=== PATIENT | female | born 1940 | race Caucasian/White ===

== ENCOUNTER 2019-02-19 14:14 | Outpatient (RCR) | payer MEDICARE, OTHER, SELFPAY ==
[2019-02-19 14:34] VITALS: BP 146/72; PULSE 57; RESP 16; TEMP 35.9; BMI 22.7
--- NOTE | 2019-02-19 15:47 | PCM.WC.HP ---
(1) Traumatic open wound of left lower leg Status: Chronic Current Visit: Yes Qualifiers: Encounter type: initial encounter Qualified Code(s): S81.802A - Unspecified open wound, left lower leg, initial encounter Code(s): S81.802A - Unspecified open wound, left lower leg, initial encounter (2) History of pulmonary embolism Status: Chronic Current Visit: No Code(s): Z86.711 - Personal history of pulmonary embolism (3) On continuous oral anticoagulation Status: Chronic Current Visit: Yes Code(s): Z79.01 - 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 (4) History of tobacco use Status: Chronic Current Visit: Yes Code(s): Z87.891 - Personal history of nicotine dependence (5) Peripheral artery disease Status: Chronic Current Visit: Yes Code(s): I73.9 - Peripheral vascular disease, unspecified (6) Intermittent claudication of both lower extremities due to atherosclerosis Status: Chronic Current Visit: Yes Code(s): I70.213 - Atherosclerosis of [place] arteries of extremities with intermittent claudication, bilateral legs (7) COPD (chronic obstructive pulmonary disease) Status: Chronic Current Visit: Yes Code(s): J44.9 - Chronic obstructive pulmonary disease, unspecified (8) History of goiter Status: Chronic Current Visit: No Code(s): Z86.39 - Personal history of other endocrine, nutritional and metabolic disease (9) CHF (congestive heart failure) Status: Chronic Current Visit: No Code(s): I50.9 - Heart failure, unspecified (10) Hypertension Status: Chronic Current Visit: No Code(s): I10 - Essential (primary) hypertension (11) Leg swelling Status: Chronic Current Visit: Yes Code(s): M79.89 - Other specified soft tissue disorders (12) Hypothyroidism Status: Chronic Current Visit: No Code(s): E03.9 - Hypothyroidism, unspecified (13) Chronic renal insufficiency, stage III (moderate) Status: Chronic Current Visit: No Code(s): N18.3 - Chronic kidney disease, stage 3 (moderate) (14) Degenerative arthritis of hip Status: Chronic Current Visit: No Code(s): M16.9 - Osteoarthritis of hip, unspecified History of Present Illness Date of Service: 02/19/19 Chief Complaint: Chronic, nonhealing, traumatic wound of the left anterior tibial surface History of Wound: This is a 78-year-old female who presents for evaluation and management relative to a chronic, nonhealing, traumatic wound of the left anterior tibial surface. The wound has been present for approximately 2 years. It occurred as a result of banging her left emery against wooden steps. The traumatic event occurred approximately 2 years ago. The wound has failed to heal. She is currently using a steroid ointment topically. Her primary care physician, Dr. Patton, as recently prescribed a 5-day course of oral antibiotics, which have been completed. The patient, and her daughter at the bedside, cannot recall the name of the antibiotic. The patient has been recently evaluated by her primary care physician, and laboratory studies have been obtained. Results are as follows: On February 01, 2019, white blood count was 7.70, hemoglobin 11.8, hematocrit 35.3, platelets 226,000. On January 09, 2019, the following labs were recorded: Glucose 80, sodium 140, potassium 4.2, chloride 103, BUN 28, creatinine 1.07, calcium 7.8. A noninvasive lower extremity arterial study was recently performed at [facility], results of which are not currently available, but will be requested. However, it is presumed that the results indicated the presence of significant arterial occlusive disease, as the patient has been referred for evaluation by a vascular surgeon. The patient relates swelling in her lower extremities. She sleeps in a recliner at night. Her past medical records indicate the presence of intermittent claudication, and the patient is limited in ambulation for reasons she describes as being related to degenerative arthritis of the hip. The patient is a , and lives with her daughter, who accompanies her to her visit today. Patient was a heavy smoker until November,, at which time she was hospitalized with exacerbation of COPD. At that time, she was diagnosed with a pulmonary embolism, and has been on systemic anticoagulation since that time with Xarelto, and told that this would continue for at least 1 year. Past Medical History Past Medical History: Chronic Problems Traumatic open wound of left lower leg (Chronic) History of pulmonary embolism (Chronic) On continuous oral anticoagulation (Chronic) History of tobacco use (Chronic) Peripheral artery disease (Chronic) Intermittent claudication of both lower extremities due to atherosclerosis (Chronic) COPD (chronic obstructive pulmonary disease) (Chronic) History of goiter (Chronic) CHF (congestive heart failure) (Chronic) Hypertension (Chronic) Leg swelling (Chronic) Hypothyroidism (Chronic) Chronic renal insufficiency, stage III (moderate) (Chronic) Degenerative arthritis of hip (Chronic) Past Medical History: Patient has a history of congestive heart failure, hypertension, pulmonary embolism, chronic obstructive pulmonary disease, stage III renal insufficiency, hypothyroidism, intermittent claudication, lower extremity swelling and edema, goiter, and tobacco abuse. The patient's history is negative for myocardial infarction, cerebrovascular accident, and diabetes mellitus. Since smoking cessation in November 2018, the patient has been using a patch. Surgical History: - - Patient has a history of thyroidectomy for goiter. The patient is a G5, P5, Ab0 Home Medications: Ambulatory Orders Medication Instructions Recorded Acetaminophen 500 mg PO Q4H PRN PRN 02/19/19 Acetaminophen with Codeine 1 ea PO BID 02/19/19 [Acetaminophen-Cod #2 Tablet] Albuterol Inhaler [Ventolin Hfa 2 puff INHALATION Q6H PRN PRN 02/19/19 (SP)] Carvedilol 25 mg PO BID 02/19/19 Cholecalciferol (VIT D3) 400 02/19/19 Fluticasone Furoate [Arnuity 02/19/19 Ellipta] Gabapentin [Neurontin] 400 mg PO 02/19/19 Levothyroxine [Synthroid] 112 mcg PO DAILY 02/19/19 Loratadine 10 mg PO 02/19/19 Mirabegron [Myrbetriq] 25 mg PO 02/19/19 Nicotine [Nicotine Patch] 1 ea TD 02/19/19 Omeprazole [Prilosec] 20 mg PO DAILY 02/19/19 Oxycodone HCl/Acetaminophen PO Q6H PRN PRN 02/19/19 [Percocet 5-325] Pravastatin [Pravachol] 20 mg PO QHS 02/19/19 Rivaroxaban [Xarelto] 20 mg PO DAILY 02/19/19 Ropinirole HCl 0.5 mg PO 02/19/19 - Family History Paternal - - The patient's father in his 70s with a history of COPD and skin cancer. The patient's mother in her 70s with a history of stomach cancer. Lives: With Family - Patient lives with her daughter, - Smoking Status: Former smoker - The patient quit smoking approximately 3 months ago, and using cessation patches since. Tobacco Use: Cigarettes Alcohol: None Drugs: None Review of Systems Constitutional: Denies: Chills, Fever, Weight Change Eyes: Denies: Pain, Vision Change HEENT: Denies: Difficulty Hearing, Difficulty Swallowing, Sinus Congestion Cardiovascular: Denies: Chest Pain, Palpitations Respiratory: Denies: Cough, Shortness of Breath Gastrointestinal: Denies: Diarrhea, Nausea, Vomiting Genitourinary: Denies: Dysuria, Hematuria Endocrine: Denies: Heat/ Cold Intolerance, Polydipsia, Polyuria Hematologic/ Lymphatic: Denies: Easy Bruising, Easy Bleeding - Physical Exam Vital Signs Temp Pulse Resp BP 96.6 F L 57 L 16 146/72 H 02/19/19 14:34 02/19/19 14:34 02/19/19 14:34 02/19/19 14:34 General: Alert, Oriented x3, Cooperative, No apparent distress, Well developed, Well nourished, - - Patient appears to be of relatively normal body weight. She is alert, conversant, and appropriate. HEENT: Atraumatic, PERRLA, EOMI, Normocephalic Oral: Moist Mucosa Neck: Supple, No JVD, Negative Carotid Bruits, Negative Hepatojugular Reflux, No Nodes, No Nuchal Rigidity, Trachea Midline Lungs: Clear to auscultation, Normal air movement, No rhonchi, No wheeze, No rales Cardiovascular: Regular rate, Regular Rhythm, Normal S1, Normal S2, No murmurs Abdomen: Soft, Non Tender, Non-Distended Extremities: No clubbing, No cyanosis, No edema, No Calf Tenderness, - - Scattered varicosities are noted in the lower extremities bilaterally. There is no significant swelling or edema. An open wound is noted on the left anterior tibial surface. Dimensions are documented elsewhere. There is a moderate amount of bioburden and nonviable tissue. There is no sign of infection or cellulitis. Skin: No rashes Wound Measurements and Assessment WC - Nurse 1 - General Ulcer Measurement Start: 02/19/19 14:34 Freq: Status: Active Protocol: Activity Type Activity Date Activity User E-Sign Co-Sign Detail Recorded Client Recorded Date Recorded By Document 02/19/19 14:34 BS [id number] 02/19/19 14:53 BS 12/30/19 14:34 Wound Center Nurse 1 [Ulcer Assessment] #1 LLE -Combined with other wound No -Current Size (cm) - Length 0.1 -Current Size (cm) - Width 0.1 -Current Size (cm) - Depth 0.1 -Total Square Cm 0.01 -Date of Last Picture (Recall this 02/19/19 field) -Photo Taken Yes -Wound Margin Flat & Intact -Texture (Johnna-wound Skin Appearance) No Abnormality, Assessed -Moisture (Johnna-wound Skin Appearance Assessed,Dry/ ) Scaly -Temperature (Johnna-wound Skin No Abnormality Appearance) (Pt Warm) -Tenderness on Palpation (Johnna-wound No Skin Appearance) -Ulcer Cleansing Rinsed/ Irrigated with Saline -Foul Odor after Cleansing No [Edema Assessment] -Point of measurement (cm from the 32.0 medial instep) -Point of Measurement (cm from the 21.5 medial instep) -Point of measurement (cm from the 31.0 medial instep) -Point of Measurement (cm from the 20.0 medial instep) WC - Nurse 2 - General Ulcer CM Notes Start: 02/19/19 14:34 Freq: Status: Active Protocol: Activity Type Activity Date Activity User E-Sign Co-Sign Detail Recorded Client Recorded Date Recorded By Document 02/19/19 15:07 MW [id number] 02/19/19 15:19 MW 02/19/19 15:07 Wound Center Nurse 2 [Procedure/Treatment] #1 LLE -Time 15:07 -Correct Patient Yes -Correct Side, Site, Position Yes -Correct Procedure Yes -Procedure Performed Yes -Type of Procedure Debridement -Clinical Debridement Subcutaneous -Post Debridement Size (cm) - Length 0.6 -Post Debridement Size (cm) - Width 0.9 -Post Debridement Size (cm) - Depth 0.1 -Total Square Cm 0.54 -Wound/Ulcer Outcome Not Healed -Ulcer Cleansing Rinsed/ Irrigated with Saline -Foul Odor after Cleansing No -Bioengineered Tissue No -Bleeding Controlled with Pressure -Offloading No -Treatment Response Procedure Tolerated Well [See Physician Procedure note for Specifics] Pain Scale: 0-10 Numeric [Pain] -Is Patient Pain Free? Yes Neurological: Cranial nerves II-XII grossly intact, Neuro grossly intact Psych/Mental Status: Normal Affect, Appropriate, Alert and oriented to time, place, person, mood and affect Debridement Note Post-Debridement Measurements/Treatment WC - Nurse 2 - General Ulcer CM Notes Start: 02/19/19 14:34 Freq: Status: Active Protocol: Activity Type Activity Date Activity User E-Sign Co-Sign Detail Recorded Client Recorded Date Recorded By Document 02/19/19 15:07 MW [id number] 02/19/19 15:19 MW 02/19/19 15:07 Wound Center Nurse 2 #1 LLE -Time 15:07 -Correct Patient Yes -Correct Side, Site, Position Yes -Correct Procedure Yes -Procedure Performed Yes -Type of Procedure Debridement -Clinical Debridement Subcutaneous -Post Debridement Size (cm) - Length 0.6 -Post Debridement Size (cm) - Width 0.9 -Post Debridement Size (cm) - Depth 0.1 -Total Square Cm 0.54 -Wound/Ulcer Outcome Not Healed -Ulcer Cleansing Rinsed/ Irrigated with Saline -Foul Odor after Cleansing No -Bioengineered Tissue No -Bleeding Controlled with Pressure -Offloading No -Treatment Response Procedure Tolerated Well Pain Scale: 0-10 Numeric Is Patient Pain Free? Yes Laterality: Left - Anterior tibial surface Type of Debridement: Excisional debridement Anesthesia Used: 5% Lidocaine Gel Depth: Down to and including healthy tissue, in the subcutaneous layer Percentage of wound debrided: 100 Instrument Used: 5mm curette Tissue Removed: Bioburden and nonviable tissue Severity: Fat Layer Exposed Amount of bleeding with debridement: Mild Bleeding Controlled with: Compression and gauze Patient tolerated procedure well Assessment/Plan Active Problems Traumatic open wound of left lower leg (Chronic) On continuous oral anticoagulation (Chronic) History of tobacco use (Chronic) Peripheral artery disease (Chronic) Intermittent claudication of both lower extremities due to atherosclerosis (Chronic) COPD (chronic obstructive pulmonary disease) (Chronic) Leg swelling (Chronic) Assessment: This is a 78-year-old female who presents with an open wound on the left anterior tibial surface, which has been present for approximately 2 years. By history, the patient has multiple medical problems, which have been listed above. Based upon history, and past medical records, it appears as though the patient suffers from intermittent claudication secondary to peripheral arterial occlusive disease. She has recently undergone a noninvasive lower extremity arterial study at [facility]. We are to request copies of these results. It is understood that the patient has been referred for consultation with a vascular surgeon. This implies that there is evidence of arterial occlusive disease. It is noted that the patient has pre-existing comorbid medical conditions, with a recent history of pulmonary embolism for which she is on systemic anticoagulation therapy with Xarelto. Patient has had some recent laboratory studies, but others will be obtained prior to her next visit in 1 week. We are to obtain a comprehensive metabolic profile and a serum prealbumin. Plan: We are to request copies of the patient's recent noninvasive lower extremity arterial study. Additional laboratory blood work will be obtained. Patient has been encouraged to optimize her nutritional intake. She has been encouraged to elevate her lower extremities as much as possible, and to refrain from sleeping in a recliner at night. Activity has been encouraged. She is to continue in her efforts to cease smoking. We are to implement the use of Analilia topically to the patient's open left lower extremity wound. The patient, and her daughter at the bedside, have been instructed in the appropriate means of applying the Analilia. Patient is to return in 1 week for reevaluation. Patient is not currently a smoker, and has been counseled to continue her efforts to stop smoking. Influenza vaccine was not administered today. Patient stands 5 feet 5 inches tall. She weighs 137 pounds. Her BMI is 22.8, which is normal.
[2019-02-19 18:12] LABS: ALB/GLOB Ratio 0.9 RATIO (0.9-2.4); AST(SGOT) 16 U/L (15-37); Alanine Aminotransfer ALT/SGPT 21 U/L (13-56); Albumin, Serum 3.6 g/dL (3.2-5.0); Alkaline Phosphatase 94 U/L (45-117); Anion Gap 4 (5-15); BUN 12 mg/dL (7-18); BUN/Creat Ratio 12.4 RATIO (10-20); Chloride 106 mmol/L (98-107); Creatinine, Serum 0.97 mg/dL (0.55-1.02); EST Glomerular Filtration Rate 59 mL/min (>60); Est Glom Filt Rate - Afr Amer 72 mL/min (>60); Globulin 3.8 g/dL (2.2-4.2); Glucose 94 mg/dL (74-106); Potassium 3.7 mmol/L (3.5-5.1); Prealbumin 25.2 mg/dL (20.0-40.0); Protein, Total 7.4 g/dL (6.4-8.2); Sodium Level 140 mmol/L (136-145)
== END 2019-02-20 23:59 ==
LOC: WC 14:14
PROVIDERS: Family Provider Student in an Organized Health Care Education/Training Program; PCP Student in an Organized Health Care Education/Training Program; Visit Provider Surgery
DX: I70.213 Atherosclerosis of native arteries of extremities with intermittent claudication, bilateral legs (principal); S89.8 Other specified injuries of lower leg; W22.09XS Striking against other stationary object, sequela; I50.9 Heart failure, unspecified; I13.0 Hypertensive heart and chronic kidney disease with heart failure and stage 1 through stage 4 chronic kidney disease, or unspecified chronic kidney disease; Z86.711 Personal history of pulmonary embolism; Z87.891 Personal history of nicotine dependence; J44.9 Chronic obstructive pulmonary disease, unspecified; M16.10 Unilateral primary osteoarthritis, unspecified hip; E03.9 Hypothyroidism, unspecified; N18.3 Chronic kidney disease, stage 3 (moderate); T79.8XXA Other early complications of trauma, initial encounter; W22.09XA Striking against other stationary object, initial encounter
CPT/HCPCS: 11042; 80053; 84134; 99203; G0463

== ENCOUNTER 2019-03-20 10:30 | Outpatient (RCR) | payer MEDICARE, OTHER, SELFPAY ==
[2019-02-21 01:10] VITALS: BP 146/72; PULSE 57; RESP 16; TEMP 35.9
[2019-02-27 10:09] VITALS: BP 128/59; PULSE 56; RESP 18; TEMP 36.9; BMI 22.7
--- NOTE | 2019-02-27 10:53 | PCM.WC.HP ---
(1) Traumatic open wound of left lower leg Status: Chronic Current Visit: Yes Qualifiers: Encounter type: subsequent encounter Qualified Code(s): S81.802D - Unspecified open wound, left lower leg, subsequent encounter Code(s): S81.802A - Unspecified open wound, left lower leg, initial encounter (2) History of pulmonary embolism Status: Chronic Current Visit: No Code(s): Z86.711 - Personal history of pulmonary embolism (3) On continuous oral anticoagulation Status: Chronic Current Visit: No Code(s): Z79.01 - intermediate frame tender (current) use of anticoagulants (4) History of tobacco use Status: Chronic Current Visit: Yes Code(s): Z87.891 - Personal history of nicotine dependence (5) Peripheral artery disease Status: Chronic Current Visit: Yes Code(s): I73.9 - Peripheral vascular disease, unspecified (6) Intermittent claudication of both lower extremities due to atherosclerosis Status: Chronic Current Visit: Yes Code(s): I70.213 - Atherosclerosis of [place] arteries of extremities with intermittent claudication, bilateral legs (7) COPD (chronic obstructive pulmonary disease) Status: Chronic Current Visit: No Code(s): J44.9 - Chronic obstructive pulmonary disease, unspecified (8) History of goiter Status: Chronic Current Visit: No Code(s): Z86.39 - Personal history of other endocrine, nutritional and metabolic disease (9) CHF (congestive heart failure) Status: Chronic Current Visit: No Code(s): I50.9 - Heart failure, unspecified (10) Hypertension Status: Chronic Current Visit: No Code(s): I10 - Essential (primary) hypertension (11) Leg swelling Status: Chronic Current Visit: Yes Code(s): M79.89 - Other specified soft tissue disorders (12) Hypothyroidism Status: Chronic Current Visit: No Code(s): E03.9 - Hypothyroidism, unspecified (13) Chronic renal insufficiency, stage III (moderate) Status: Chronic Current Visit: No Code(s): N18.3 - Chronic kidney disease, stage 3 (moderate) (14) Degenerative arthritis of hip Status: Chronic Current Visit: No Code(s): M16.9 - Osteoarthritis of hip, unspecified History of Present Illness Date of Service: 02/27/19 Chief Complaint: Chronic, nonhealing, traumatic wound of the left anterior tibial surface History of Wound: This is a 78-year-old female who presented for evaluation and management relative to a chronic, nonhealing, traumatic wound of the left anterior tibial surface. The wound had been present for approximately 2 years. It occurred as a result of banging her left emery against wooden steps. The traumatic event occurred approximately 2 years ago. The wound has failed to heal. She was using a steroid ointment topically. Her primary care physician, Dr. Patton, had recently prescribed a 5-day course of oral antibiotics. The patient, and her daughter at the bedside, could not recall the name of the antibiotic. The patient had been recently evaluated by her primary care physician, and laboratory studies had been obtained. Results were as follows: On February 01, 2019, white blood count was 7.70, hemoglobin 11.8, hematocrit 35.3, platelets 226,000. On January 09, 2019, the following labs were recorded: Glucose 80, sodium 140, potassium 4.2, chloride 103, BUN 28, creatinine 1.07, calcium 7.8. A noninvasive lower extremity arterial study was recently performed at [facility], results of which were not available, but were requested. However, it is presumed that the results indicated the presence of significant arterial occlusive disease, as the patient has been referred for evaluation by a vascular surgeon. The patient relates swelling in her lower extremities. She sleeps in a recliner at night. Her past medical records indicate the presence of intermittent claudication, and the patient is limited in ambulation for reasons she describes as being related to degenerative arthritis of the hip. The patient is a , and lives with her daughter. Patient was a heavy smoker until November,, at which time she was hospitalized with exacerbation of COPD. At that time, she was diagnosed with a pulmonary embolism, and has been on systemic anticoagulation since that time with Xarelto, and told that this would continue for at least 1 year. Since she has stopped smoking, she has been using a nicotine patch. Past Medical History Past Medical History: Chronic Problems Traumatic open wound of left lower leg (Chronic) History of pulmonary embolism (Chronic) On continuous oral anticoagulation (Chronic) History of tobacco use (Chronic) Peripheral artery disease (Chronic) Intermittent claudication of both lower extremities due to atherosclerosis (Chronic) COPD (chronic obstructive pulmonary disease) (Chronic) History of goiter (Chronic) CHF (congestive heart failure) (Chronic) Hypertension (Chronic) Leg swelling (Chronic) Hypothyroidism (Chronic) Chronic renal insufficiency, stage III (moderate) (Chronic) Degenerative arthritis of hip (Chronic) Surgical History: - - Patient has a history of thyroidectomy for goiter. The patient is a G5, P5, Ab0 Home Medications: Ambulatory Orders Medication Instructions Recorded Acetaminophen 500 mg PO Q4H PRN PRN 02/19/19 Acetaminophen with Codeine 1 ea PO BID 02/19/19 [Acetaminophen-Cod #2 Tablet] Albuterol Inhaler [Ventolin Hfa 2 puff INHALATION Q6H PRN PRN 02/19/19 (SP)] Carvedilol 25 mg PO BID 02/19/19 Cholecalciferol (VIT D3) 400 02/19/19 Fluticasone Furoate [Arnuity 02/19/19 Ellipta] Gabapentin [Neurontin] 400 mg PO 02/19/19 Levothyroxine [Synthroid] 112 mcg PO DAILY 02/19/19 Loratadine 10 mg PO 02/19/19 Mirabegron [Myrbetriq] 25 mg PO 02/19/19 Nicotine [Nicotine Patch] 1 ea TD 02/19/19 Omeprazole [Prilosec] 20 mg PO DAILY 02/19/19 Oxycodone HCl/Acetaminophen PO Q6H PRN PRN 02/19/19 [Percocet 5-325] Pravastatin [Pravachol] 20 mg PO QHS 02/19/19 Rivaroxaban [Xarelto] 20 mg PO DAILY 02/19/19 Ropinirole HCl 0.5 mg PO 02/19/19 Furosemide [Lasix] 40 mg PO DAILY 02/27/19 - Family History Paternal - - The patient's father in his 70s with a history of COPD and skin cancer. The patient's mother in her 70s with a history of stomach cancer. Smoking Status: Former smoker - The patient quit smoking approximately 3 months ago, and using cessation patches since. Tobacco Use: Cigarettes Review of Systems Constitutional: Denies: Chills, Fever, Weight Change Eyes: Denies: Pain, Vision Change HEENT: Denies: Difficulty Hearing, Difficulty Swallowing, Sinus Congestion Cardiovascular: Denies: Chest Pain, Palpitations Respiratory: Denies: Cough, Shortness of Breath Gastrointestinal: Denies: Diarrhea, Nausea, Vomiting Genitourinary: Denies: Dysuria, Hematuria Endocrine: Denies: Heat/ Cold Intolerance, Polydipsia, Polyuria Hematologic/ Lymphatic: Denies: Easy Bruising, Easy Bleeding - Physical Exam Vital Signs Temp Pulse Resp BP 98.5 F 56 L 18 128/59 H 02/27/19 10:09 02/27/19 10:09 02/27/19 10:09 02/27/19 10:09 General: Alert, Oriented x3, Cooperative, No apparent distress, Well developed, Well nourished HEENT: Atraumatic, PERRLA, EOMI, Normocephalic Oral: Moist Mucosa Neck: No JVD Lungs: Normal air movement Abdomen: Non-Distended Extremities: No clubbing, No cyanosis, No edema, No Calf Tenderness, - - The wound on the left anterior tibial surface appears to be improved. Dimensions are documented elsewhere. There is no sign of infection or cellulitis. There is a moderate amount of bioburden. Skin: No rashes Wound Measurements and Assessment WC - Nurse 1 - General Ulcer Measurement Start: 02/27/19 10:08 Freq: Status: Active Protocol: Activity Type Activity Date Activity User E-Sign Co-Sign Detail Recorded Client Recorded Date Recorded By Document 02/27/19 10:09 DL [id number] 02/27/19 10:15 DL 02/27/19 10:09 Wound Center Nurse 1 [Ulcer Assessment] #1 LLE -Current Size (cm) - Length 0.6 -Current Size (cm) - Width 0.8 -Current Size (cm) - Depth 0.1 -Total Square Cm 0.48 -Photo Taken No -Exudate Amt Small -Exudate Type Serosanguineous -Wound Margin Distinct, Outline Attached -Granulation Amt Small (1-33%) -Granulation Quality Red -Necrosis Amt Small (1-33%) -Necrotic Tissue Type Adherent Slough -Structure Exposed N/A -Texture (Johnna-wound Skin Appearance) No Abnormality -Moisture (Johnna-wound Skin Appearance No Abnormality ) -Color (Johnna-wound Skin Appearance) No Abnormality -Temperature (Johnna-wound Skin No Abnormality Appearance) (Pt Warm) -Tenderness on Palpation (Johnna-wound No Skin Appearance) -Ulcer Cleansing Rinsed/ Irrigated with Saline -Foul Odor after Cleansing No -Anesthetic Used 4% Lidocaine Solution [Edema Assessment] -Left Calf (cm) 33.2 -Left Ankle (cm) 18.3 - Nurse 2 - General Ulcer CM Notes Start: 02/27/19 10:08 Freq: Status: Active Protocol: Activity Type Activity Date Activity User E-Sign Co-Sign Detail Recorded Client Recorded Date Recorded By Document 02/27/19 10:48 DV [id number] 02/27/19 10:51 DV 02/27/19 10:48 Wound Center Nurse 2 [Procedure/Treatment] #1 LLE -Time 10:49 -Correct Patient Yes -Correct Side, Site, Position Yes -Correct Procedure Yes -Procedure Performed Yes -Type of Procedure Debridement -Clinical Debridement Subcutaneous -Post Debridement Size (cm) - Length 0.7 -Post Debridement Size (cm) - Width 0.4 -Post Debridement Size (cm) - Depth 0.2 -Total Square Cm 0.28 -Wound/Ulcer Outcome Not Healed -Ulcer Cleansing Rinsed/ Irrigated with Saline -Foul Odor after Cleansing No -Bioengineered Tissue No -Bleeding Controlled with Pressure -Offloading No -Treatment Response Procedure Tolerated Well [See Physician Procedure note for Specifics] Pain Scale: 0-10 Numeric [Pain] -Is Patient Pain Free? Yes Musculoskeletal: Muscle Wasting - Lower extremities Neurological: Cranial nerves II-XII grossly intact, Neuro grossly intact Psych/Mental Status: Normal Affect, Appropriate, Alert and oriented to time, place, person, mood and affect Debridement Note Post-Debridement Measurements/Treatment - Nurse 2 - General Ulcer CM Notes Start: 02/27/19 10:08 Freq: Status: Active Protocol: Activity Type Activity Date Activity User E-Sign Co-Sign Detail Recorded Client Recorded Date Recorded By Document 02/27/19 10:48 DV [id number] 02/27/19 10:51 DV 02/27/19 10:48 Wound Center Nurse 2 #1 LLE -Time 10:49 -Correct Patient Yes -Correct Side, Site, Position Yes -Correct Procedure Yes -Procedure Performed Yes -Type of Procedure Debridement -Clinical Debridement Subcutaneous -Post Debridement Size (cm) - Length 0.7 -Post Debridement Size (cm) - Width 0.4 -Post Debridement Size (cm) - Depth 0.2 -Total Square Cm 0.28 -Wound/Ulcer Outcome Not Healed -Ulcer Cleansing Rinsed/ Irrigated with Saline -Foul Odor after Cleansing No -Bioengineered Tissue No -Bleeding Controlled with Pressure -Offloading No -Treatment Response Procedure Tolerated Well Pain Scale: 0-10 Numeric Is Patient Pain Free? Yes Laterality: Left - Anterior tibial surface Type of Debridement: Excisional debridement Anesthesia Used: 5% Lidocaine Gel Depth: Down to and including healthy tissue, in the subcutaneous layer Percentage of wound debrided: 100 Instrument Used: 5mm curette Tissue Removed: Bioburden and nonviable tissue Severity: Fat Layer Exposed Amount of bleeding with debridement: Mild Bleeding Controlled with: Compression and gauze Patient tolerated procedure well Assessment/Plan Active Problems Traumatic open wound of left lower leg (Chronic) History of tobacco use (Chronic) Peripheral artery disease (Chronic) Intermittent claudication of both lower extremities due to atherosclerosis (Chronic) Leg swelling (Chronic) Assessment: This is a 78-year-old female who presents with an open wound on the left anterior tibial surface, which has been present for approximately 2 years. By history, the patient has multiple medical problems, which have been listed above. Based upon history, and past medical records, it appears as though the patient suffers from intermittent claudication secondary to peripheral arterial occlusive disease. She has recently undergone a noninvasive lower extremity arterial study at [facility]. We have requested copies of these results, but continue to await their receipt. It is understood that the patient has been referred for consultation with a vascular surgeon. This implies that there is evidence of arterial occlusive disease. It is noted that the patient has pre-existing comorbid medical conditions, with a recent history of pulmonary embolism for which she is on systemic anticoagulation therapy with Xarelto. Patient has had some recent laboratory studies, and others have been recently obtained on 02/19/19. Results are as follows: Sodium 140, potassium 3.7, chloride 106, BUN 12, creatinine 0.97, glucose 94, calcium 9.0, AST 16, ALT 21, total protein 7.4, albumin 3.6, serum prealbumin 25.2. Plan: We have requested copies of the patient's recent noninvasive lower extremity arterial study performed at [facility], though not yet received. Nonetheless, she has an appointment with a vascular surgeon on March 14, 2019. Patient has been encouraged to optimize her nutritional intake. She has been encouraged to elevate her lower extremities as much as possible, and to refrain from sleeping in a recliner at night. Activity has been encouraged. She is to continue in her efforts to cease smoking. We are to continue the use of Analilia topically to the patient's open left lower extremity wound. The patient, and her daughter at the bedside, have been instructed in the appropriate means of applying the Analilia. Patient is to return in 1 week for reevaluation. Patient is not currently a smoker, and has been counseled to continue her efforts to stop smoking. Influenza vaccine was not administered today. Patient stands 5 feet 5 inches tall. She weighs 137 pounds. Her BMI is 22.8, which is normal.
[2019-03-06 10:29] VITALS: BP 149/77; PULSE 55; RESP 16; TEMP 36.1; BMI 22.7
--- NOTE | 2019-03-06 11:10 | HP.PCM_ITS ---
(1) Traumatic open wound of left lower leg Status: Chronic Current Visit: Yes Qualifiers: Encounter type: subsequent encounter Qualified Code(s): S81.802D - Unspecified open wound, left lower leg, subsequent encounter Code(s): S81.802A - Unspecified open wound, left lower leg, initial encounter (2) History of pulmonary embolism Status: Chronic Current Visit: No Code(s): Z86.711 - Personal history of pulmonary embolism (3) On continuous oral anticoagulation Status: Chronic Current Visit: No Code(s): Z79.01 - retirement (current) use of anticoagulants (4) History of tobacco use Status: Chronic Current Visit: Yes Code(s): Z87.891 - Personal history of nicotine dependence (5) Peripheral artery disease Status: Chronic Current Visit: Yes Code(s): I73.9 - Peripheral vascular disease, unspecified (6) Intermittent claudication of both lower extremities due to atherosclerosis Status: Chronic Current Visit: Yes Code(s): I70.213 - Atherosclerosis of [place] arteries of extremities with intermittent claudication, bilateral legs (7) COPD (chronic obstructive pulmonary disease) Status: Chronic Current Visit: No Code(s): J44.9 - Chronic obstructive pulmonary disease, unspecified (8) History of goiter Status: Chronic Current Visit: No Code(s): Z86.39 - Personal history of other endocrine, nutritional and metabolic disease (9) CHF (congestive heart failure) Status: Chronic Current Visit: No Code(s): I50.9 - Heart failure, unspecified (10) Hypertension Status: Chronic Current Visit: No Code(s): I10 - Essential (primary) hypertension (11) Leg swelling Status: Chronic Current Visit: Yes Code(s): M79.89 - Other specified soft tissue disorders (12) Hypothyroidism Status: Chronic Current Visit: No Code(s): E03.9 - Hypothyroidism, unspecified (13) Chronic renal insufficiency, stage III (moderate) Status: Chronic Current Visit: No Code(s): N18.3 - Chronic kidney disease, stage 3 (moderate) (14) Degenerative arthritis of hip Status: Chronic Current Visit: No Code(s): M16.9 - Osteoarthritis of hip, unspecified History of Present Illness Date of Service: 03/06/19 Chief Complaint: Chronic, nonhealing, traumatic wound of the left anterior tibial surface History of Wound: This is a 78-year-old female who presented for evaluation and management relative to a chronic, nonhealing, traumatic wound of the left anterior tibial surface. The wound had been present for approximately 2 years. It occurred as a result of banging her left emery against wooden steps. The traumatic event occurred approximately 2 years ago. The wound has failed to heal. She was using a steroid ointment topically. Her primary care physician, Dr. Patton, had recently prescribed a 5-day course of oral antibiotics. The patient, and her daughter at the bedside, could not recall the name of the antibiotic. The patient had been recently evaluated by her primary care physician, and laboratory studies had been obtained. Results were as follows: On February 01, 2019, white blood count was 7.70, hemoglobin 11.8, hematocrit 35.3, platelets 226,000. On January 09, 2019, the following labs were recorded: Glucose 80, sodium 140, potassium 4.2, chloride 103, BUN 28, creatinine 1.07, calcium 7.8. A noninvasive lower extremity arterial study was recently performed at [facility], results of which were not available, but were requested. However, it is presumed that the results indicated the presence of significant arterial occlusive disease, as the patient has been referred for evaluation by a vascular surgeon. The patient relates swelling in her lower extremities. She sleeps in a recliner at night. Her past medical records indicate the presence of intermittent claudication, and the patient is limited in ambulation for reasons she describes as being related to degenerative arthritis of the hip. The patient is a , and lives with her daughter. Patient was a heavy smoker until November,, at which time she was hospitalized with exacerbation of COPD. At that time, she was diagnosed with a pulmonary embolism, and has been on systemic anticoagulation since that time with Xarelto, and told that this would continue for at least 1 year. Since she has stopped smoking, she has been using a nicotine patch. Past Medical History Past Medical History: Chronic Problems Traumatic open wound of left lower leg (Chronic) History of pulmonary embolism (Chronic) On continuous oral anticoagulation (Chronic) History of tobacco use (Chronic) Peripheral artery disease (Chronic) Intermittent claudication of both lower extremities due to atherosclerosis (Chronic) COPD (chronic obstructive pulmonary disease) (Chronic) History of goiter (Chronic) CHF (congestive heart failure) (Chronic) Hypertension (Chronic) Leg swelling (Chronic) Hypothyroidism (Chronic) Chronic renal insufficiency, stage III (moderate) (Chronic) Degenerative arthritis of hip (Chronic) Surgical History: - - Patient has a history of thyroidectomy for goiter. The patient is a G5, P5, Ab0 Home Medications: Ambulatory Orders Medication Instructions Recorded Acetaminophen 500 mg PO Q4H PRN PRN 02/19/19 Acetaminophen with Codeine 1 ea PO BID 02/19/19 [Acetaminophen-Cod #2 Tablet] Albuterol Inhaler [Ventolin Hfa 2 puff INHALATION Q6H PRN PRN 02/19/19 (SP)] Carvedilol 25 mg PO BID 02/19/19 Cholecalciferol (VIT D3) 400 02/19/19 Fluticasone Furoate [Arnuity 02/19/19 Ellipta] Gabapentin [Neurontin] 400 mg PO 02/19/19 Levothyroxine [Synthroid] 112 mcg PO DAILY 02/19/19 Loratadine 10 mg PO 02/19/19 Mirabegron [Myrbetriq] 25 mg PO 02/19/19 Nicotine [Nicotine Patch] 1 ea TD 02/19/19 Omeprazole [Prilosec] 20 mg PO DAILY 02/19/19 Oxycodone HCl/Acetaminophen PO Q6H PRN PRN 02/19/19 [Percocet 5-325] Pravastatin [Pravachol] 20 mg PO QHS 02/19/19 Rivaroxaban [Xarelto] 20 mg PO DAILY 02/19/19 Ropinirole HCl 0.5 mg PO 02/19/19 Furosemide [Lasix] 40 mg PO DAILY 02/27/19 - Family History Paternal - - The patient's father in his 70s with a history of COPD and skin cancer. The patient's mother in her 70s with a history of stomach cancer. Smoking Status: Former smoker - The patient quit smoking approximately 3 months ago, and using cessation patches since. Tobacco Use: Cigarettes Review of Systems Constitutional: Denies: Chills, Fever, Weight Change Eyes: Denies: Pain, Vision Change HEENT: Denies: Difficulty Hearing, Difficulty Swallowing, Sinus Congestion Cardiovascular: Denies: Chest Pain, Palpitations Respiratory: Denies: Cough, Shortness of Breath Gastrointestinal: Denies: Diarrhea, Nausea, Vomiting Genitourinary: Denies: Dysuria, Hematuria Endocrine: Denies: Heat/ Cold Intolerance, Polydipsia, Polyuria Hematologic/ Lymphatic: Denies: Easy Bruising, Easy Bleeding - Physical Exam Vital Signs Temp Pulse Resp BP 96.9 F L 55 L 16 149/77 H 03/06/19 10:29 03/06/19 10:29 03/06/19 10:29 03/06/19 10:29 General: Alert, Oriented x3, Cooperative, No apparent distress, Well developed, Well nourished HEENT: Atraumatic, PERRLA, EOMI, Normocephalic Oral: Moist Mucosa Neck: No JVD Lungs: Normal air movement Abdomen: Non-Distended Extremities: No clubbing, No cyanosis, No edema, No Calf Tenderness, - - There is no significant swelling or edema noted in the patient's left lower extremity. The traumatic wound on the left anterior tibial surface persists. Dimensions are documented elsewhere. There is no sign of infection or cellulitis. There is a moderate amount of bioburden. Skin: No rashes Wound Measurements and Assessment WC - Nurse 1 - General Ulcer Measurement Start: 02/27/19 10:08 Freq: Status: Active Protocol: Activity Type Activity Date Activity User E-Sign Co-Sign Detail Recorded Client Recorded Date Recorded By Document 03/06/19 10:29 [facility] [id number] 03/06/19 10:36 [facility] 03/06/19 10:29 Wound Center Nurse 1 [Ulcer Assessment] #1 LLE -Combined with other wound No -Current Size (cm) - Length 1 -Current Size (cm) - Width 1 -Current Size (cm) - Depth 0.1 -Total Square Cm 1 -Photo Taken No -Epithelialization None Present -Tunneling No -Undermining/Tunneling No -Circular Undermining No -Exudate Amt Small -Exudate Type Serosanguineous -Wound Margin Distinct, Outline Attached -Granulation Amt None Present (0 %) -Slough/Fibrin Yes -Necrosis Amt Large (67-100%) -Necrotic Tissue Type Eschar -Texture (Johnna-wound Skin Appearance) Assessed, Scarring -Moisture (Johnna-wound Skin Appearance Assessed,Dry/ ) Scaly -Color (Johnna-wound Skin Appearance) Assessed -Temperature (Johnna-wound Skin No Abnormality Appearance) (Pt Warm) -Tenderness on Palpation (Johnna-wound Yes Skin Appearance) -Ulcer Cleansing Rinsed/ Irrigated with Saline -Foul Odor after Cleansing No -Anesthetic Used 5% Lidocaine Gel WC - Nurse 2 - General Ulcer CM Notes Start: 02/27/19 10:08 Freq: Status: Active Protocol: Activity Type Activity Date Activity User E-Sign Co-Sign Detail Recorded Client Recorded Date Recorded By Document 03/06/19 11:02 DV [id number] 03/06/19 11:05 DV 03/06/19 11:02 Wound Center Nurse 2 [Procedure/Treatment] -Time 11:03 -Correct Patient Yes -Correct Side, Site, Position Yes -Correct Procedure Yes -Procedure Performed Yes -Type of Procedure Debridement -Clinical Debridement Subcutaneous -Post Debridement Size (cm) - Length 1.2 -Post Debridement Size (cm) - Width 1.2 -Post Debridement Size (cm) - Depth 0.2 -Total Square Cm 1.44 -Wound/Ulcer Outcome Not Healed -Ulcer Cleansing Rinsed/ Irrigated with Saline -Foul Odor after Cleansing No -Bioengineered Tissue No -Bleeding Controlled with Pressure -Offloading No -Treatment Response Procedure Tolerated Well [See Physician Procedure note for Specifics] Pain Scale: 0-10 Numeric [Pain] -Is Patient Pain Free? Yes Musculoskeletal: No Muscle Wasting Neurological: Cranial nerves II-XII grossly intact, Neuro grossly intact Psych/Mental Status: Normal Affect, Appropriate, Alert and oriented to time, place, person, mood and affect Debridement Note Post-Debridement Measurements/Treatment - Nurse 2 - General Ulcer CM Notes Start: 02/27/19 10:08 Freq: Status: Active Protocol: Activity Type Activity Date Activity User E-Sign Co-Sign Detail Recorded Client Recorded Date Recorded By Document 02/27/19 10:48 DV [id number] 02/27/19 10:51 DV Document 03/06/19 11:02 DV [id number] 03/06/19 11:05 DV 02/27/19 03/06/19 10:48 11:02 Wound Center Nurse 2 #1 LLE -Time 10:49 11:03 -Correct Patient Yes Yes -Correct Side, Site, Position Yes Yes -Correct Procedure Yes Yes -Procedure Performed Yes Yes -Type of Procedure Debridement Debridement -Clinical Debridement Subcutaneous Subcutaneous -Post Debridement Size (cm) - Length 0.7 1.2 -Post Debridement Size (cm) - Width 0.4 1.2 -Post Debridement Size (cm) - Depth 0.2 0.2 -Total Square Cm 0.28 1.44 -Wound/Ulcer Outcome Not Healed Not Healed -Ulcer Cleansing Rinsed/ Rinsed/ Irrigated with Irrigated with Saline Saline -Foul Odor after Cleansing No No -Bioengineered Tissue No No -Bleeding Controlled with Pressure Pressure -Offloading No No -Treatment Response Procedure Procedure Tolerated Well Tolerated Well Pain Scale: 0-10 Numeric Is Patient Pain Free? Yes Yes Laterality: Left - Anterior tibial surface Type of Debridement: Excisional debridement Anesthesia Used: 5% Lidocaine Gel Depth: Down to and including healthy tissue, in the subcutaneous layer Percentage of wound debrided: 100 Instrument Used: 5mm curette Tissue Removed: Bioburden and nonviable tissue Severity: Fat Layer Exposed Amount of bleeding with debridement: Mild Bleeding Controlled with: Compression and gauze Patient tolerated procedure well Assessment/Plan Active Problems Traumatic open wound of left lower leg (Chronic) History of tobacco use (Chronic) Peripheral artery disease (Chronic) Intermittent claudication of both lower extremities due to atherosclerosis (Chronic) Leg swelling (Chronic) Assessment: This is a 78-year-old female who presents with an open wound on the left anterior tibial surface, which has been present for approximately 2 years. By history, the patient has multiple medical problems, which have been listed above. Based upon history, and past medical records, it appears as though the patient suffers from intermittent claudication secondary to peripheral arterial occlusive disease. She has recently undergone a noninvasive lower extremity arterial study at [facility]. We have requested copies of these results, but continue to await their receipt. It is understood that the patient has been referred for consultation with a vascular surgeon. This implies that there is evidence of arterial occlusive disease. It is noted that the patient has pre-existing comorbid medical conditions, with a recent history of pulmonary embolism for which she is on systemic anticoagulation therapy with Xarelto. Patient has had some recent laboratory studies, and others have been recently obtained on 02/19/19. Results are as follows: Sodium 140, potassium 3.7, chloride 106, BUN 12, creatinine 0.97, glucose 94, calcium 9.0, AST 16, ALT 21, total protein 7.4, albumin 3.6, serum prealbumin 25.2. Plan: We have requested copies of the patient's recent noninvasive lower extremity arterial study performed at [facility], though not yet received. Nonetheless, she has an appointment with a vascular surgeon on March 14, 2019. Patient has been encouraged to optimize her nutritional intake. She has been encouraged to elevate her lower extremities as much as possible, and to refrain from sleeping in a recliner at night. Activity has been encouraged. She is to continue in her efforts to cease smoking, last having smoked in November 2018. We are to continue the use of Analilia topically to the patient's open left lower extremity wound. The patient, and her daughter at the bedside, have been instructed in the appropriate means of applying the Analilia. Patient is to return in 2 weeks for reevaluation. Upon her return, it is anticipated that the patient will have been evaluated by a vascular surgeon, with whom she has an appointment on March 14, 2019. Patient is not currently a smoker, and has been counseled to continue her efforts to stop smoking. Influenza vaccine was not administered today. Patient stands 5 feet 5 inches tall. She weighs 137 pounds. Her BMI is 22.8, which is normal.
[2019-03-20 10:34] VITALS: BP 144/50; PULSE 59; RESP 16; TEMP 37.1; BMI 22.7
--- NOTE | 2019-03-20 11:03 | PCM.WC.HP ---
(1) Traumatic open wound of left lower leg Status: Chronic Current Visit: Yes Qualifiers: Encounter type: subsequent encounter Qualified Code(s): S81.802D - Unspecified open wound, left lower leg, subsequent encounter Code(s): S81.802A - Unspecified open wound, left lower leg, initial encounter (2) History of pulmonary embolism Status: Chronic Current Visit: No Code(s): Z86.711 - Personal history of pulmonary embolism (3) On continuous oral anticoagulation Status: Chronic Current Visit: No Code(s): Z79.01 - group home (current) use of anticoagulants (4) History of tobacco use Status: Chronic Current Visit: Yes Code(s): Z87.891 - Personal history of nicotine dependence (5) Peripheral artery disease Status: Chronic Current Visit: Yes Code(s): I73.9 - Peripheral vascular disease, unspecified (6) Intermittent claudication of both lower extremities due to atherosclerosis Status: Chronic Current Visit: Yes Code(s): I70.213 - Atherosclerosis of [place] arteries of extremities with intermittent claudication, bilateral legs (7) COPD (chronic obstructive pulmonary disease) Status: Chronic Current Visit: No Code(s): J44.9 - Chronic obstructive pulmonary disease, unspecified (8) History of goiter Status: Chronic Current Visit: No Code(s): Z86.39 - Personal history of other endocrine, nutritional and metabolic disease (9) CHF (congestive heart failure) Status: Chronic Current Visit: No Code(s): I50.9 - Heart failure, unspecified (10) Hypertension Status: Chronic Current Visit: No Code(s): I10 - Essential (primary) hypertension (11) Leg swelling Status: Chronic Current Visit: Yes Code(s): M79.89 - Other specified soft tissue disorders (12) Hypothyroidism Status: Chronic Current Visit: No Code(s): E03.9 - Hypothyroidism, unspecified (13) Chronic renal insufficiency, stage III (moderate) Status: Chronic Current Visit: No Code(s): N18.3 - Chronic kidney disease, stage 3 (moderate) (14) Degenerative arthritis of hip Status: Chronic Current Visit: No Code(s): M16.9 - Osteoarthritis of hip, unspecified History of Present Illness Date of Service: 03/20/19 Chief Complaint: Chronic, nonhealing, traumatic wound of the left anterior tibial surface History of Wound: This is a 78-year-old female who presented for evaluation and management relative to a chronic, nonhealing, traumatic wound of the left anterior tibial surface. The wound had been present for approximately 2 years. It occurred as a result of banging her left emery against wooden steps. The traumatic event occurred approximately 2 years ago. The wound has failed to heal. She was using a steroid ointment topically. Her primary care physician, Dr. Patton, had recently prescribed a 5-day course of oral antibiotics. The patient, and her daughter at the bedside, could not recall the name of the antibiotic. The patient had been recently evaluated by her primary care physician, and laboratory studies had been obtained. Results were as follows: On February 01, 2019, white blood count was 7.70, hemoglobin 11.8, hematocrit 35.3, platelets 226,000. On January 09, 2019, the following labs were recorded: Glucose 80, sodium 140, potassium 4.2, chloride 103, BUN 28, creatinine 1.07, calcium 7.8. A noninvasive lower extremity arterial study was recently performed at [facility], results of which were not available, but were requested. However, it is presumed that the results indicated the presence of significant arterial occlusive disease, as the patient has been referred for evaluation by a vascular surgeon. The patient relates swelling in her lower extremities. She sleeps in a recliner at night. Her past medical records indicate the presence of intermittent claudication, and the patient is limited in ambulation for reasons she describes as being related to degenerative arthritis of the hip. The patient is a , and lives with her daughter. Patient was a heavy smoker until November,, at which time she was hospitalized with exacerbation of COPD. At that time, she was diagnosed with a pulmonary embolism, and has been on systemic anticoagulation since that time with Xarelto, and told that this would continue for at least 1 year. Since she has stopped smoking, she has been using a nicotine patch. Past Medical History Past Medical History: Chronic Problems Traumatic open wound of left lower leg (Chronic) History of pulmonary embolism (Chronic) On continuous oral anticoagulation (Chronic) History of tobacco use (Chronic) Peripheral artery disease (Chronic) Intermittent claudication of both lower extremities due to atherosclerosis (Chronic) COPD (chronic obstructive pulmonary disease) (Chronic) History of goiter (Chronic) CHF (congestive heart failure) (Chronic) Hypertension (Chronic) Leg swelling (Chronic) Hypothyroidism (Chronic) Chronic renal insufficiency, stage III (moderate) (Chronic) Degenerative arthritis of hip (Chronic) Surgical History: - - Patient has a history of thyroidectomy for goiter. The patient is a G5, P5, Ab0 Home Medications: Ambulatory Orders Medication Instructions Recorded Acetaminophen 500 mg PO Q4H PRN PRN 02/19/19 Acetaminophen with Codeine 1 ea PO BID 02/19/19 [Acetaminophen-Cod #2 Tablet] Albuterol Inhaler [Ventolin Hfa 2 puff INHALATION Q6H PRN PRN 02/19/19 (SP)] Carvedilol 25 mg PO BID 02/19/19 Cholecalciferol (VIT D3) 400 02/19/19 Fluticasone Furoate [Arnuity 02/19/19 Ellipta] Gabapentin [Neurontin] 400 mg PO 02/19/19 Levothyroxine [Synthroid] 112 mcg PO DAILY 02/19/19 Loratadine 10 mg PO 02/19/19 Mirabegron [Myrbetriq] 25 mg PO 02/19/19 Nicotine [Nicotine Patch] 1 ea TD 02/19/19 Omeprazole [Prilosec] 20 mg PO DAILY 02/19/19 Oxycodone HCl/Acetaminophen PO Q6H PRN PRN 02/19/19 [Percocet 5-325] Pravastatin [Pravachol] 20 mg PO QHS 02/19/19 Rivaroxaban [Xarelto] 20 mg PO DAILY 02/19/19 Ropinirole HCl 0.5 mg PO 02/19/19 Furosemide [Lasix] 40 mg PO DAILY 02/27/19 - Family History Paternal - - The patient's father in his 70s with a history of COPD and skin cancer. The patient's mother in her 70s with a history of stomach cancer. Smoking Status: Former smoker - The patient quit smoking approximately 3 months ago, and using cessation patches since. Tobacco Use: Cigarettes Review of Systems Constitutional: Denies: Chills, Fever, Weight Change Eyes: Denies: Pain, Vision Change HEENT: Denies: Difficulty Hearing, Difficulty Swallowing, Sinus Congestion Cardiovascular: Denies: Chest Pain, Palpitations Respiratory: Denies: Cough, Shortness of Breath Gastrointestinal: Denies: Diarrhea, Nausea, Vomiting Genitourinary: Denies: Dysuria, Hematuria Endocrine: Denies: Heat/ Cold Intolerance, Polydipsia, Polyuria Hematologic/ Lymphatic: Denies: Easy Bruising, Easy Bleeding - Physical Exam Vital Signs Temp Pulse Resp BP 98.8 F 59 L 16 144/50 H 03/20/19 10:34 03/20/19 10:34 03/20/19 10:34 03/20/19 10:34 General: Alert, Oriented x3, Cooperative, No apparent distress, Well developed, Well nourished HEENT: Atraumatic, PERRLA, EOMI, Normocephalic Oral: Moist Mucosa Neck: No JVD Lungs: Normal air movement Abdomen: Non-Distended Extremities: No clubbing, No cyanosis, No edema, No Calf Tenderness, - - The wound on the anterolateral portion of the left calf persists. Dimensions are documented elsewhere. There is a hint of erythema surrounding the wound. There is a moderate amount of bioburden. Wound Measurements and Assessment WC - Nurse 1 - General Ulcer Measurement Start: 02/27/19 10:08 Freq: Status: Active Protocol: Activity Type Activity Date Activity User E-Sign Co-Sign Detail Recorded Client Recorded Date Recorded By Document 03/20/19 10:34 [facility] [id number] 03/20/19 10:41 [facility] 03/20/19 10:34 Wound Center Nurse 1 [Ulcer Assessment] #1 LLE -Combined with other wound No -Current Size (cm) - Length 1.2 -Current Size (cm) - Width 2.1 -Current Size (cm) - Depth 0.1 -Total Square Cm 2.52 -Photo Taken No -Epithelialization Small 1-33% -Tunneling No -Undermining/Tunneling No -Circular Undermining No -Wound Margin Distinct, Outline Attached -Granulation Amt Large (67-100%) -Granulation Quality Red -Slough/Fibrin No -Necrosis Amt None Present (0 %) -Texture (Johnna-wound Skin Appearance) Assessed -Moisture (Johnna-wound Skin Appearance Assessed,Dry/ ) Scaly -Color (Johnna-wound Skin Appearance) Assessed -Temperature (Johnna-wound Skin No Abnormality Appearance) (Pt Warm) -Tenderness on Palpation (Johnna-wound No Skin Appearance) -Ulcer Cleansing Rinsed/ Irrigated with Saline -Foul Odor after Cleansing No -Anesthetic Used 5% Lidocaine Gel WC - Nurse 2 - General Ulcer CM Notes Start: 02/27/19 10:08 Freq: Status: Active Protocol: Activity Type Activity Date Activity User E-Sign Co-Sign Detail Recorded Client Recorded Date Recorded By Document 03/20/19 10:56 DV [id number] 03/20/19 10:57 DV 03/20/19 10:56 Wound Center Nurse 2 [Procedure/Treatment] -Time 10:56 -Correct Patient Yes -Correct Side, Site, Position Yes -Correct Procedure Yes -Procedure Performed Yes -Type of Procedure Debridement -Clinical Debridement Subcutaneous -Post Debridement Size (cm) - Length 1.5 -Post Debridement Size (cm) - Width 2.3 -Post Debridement Size (cm) - Depth 0.2 -Total Square Cm 3.45 -Wound/Ulcer Outcome Not Healed -Ulcer Cleansing Rinsed/ Irrigated with Saline -Foul Odor after Cleansing No -Bioengineered Tissue No -Bleeding Controlled with Pressure -Offloading No -Treatment Response Procedure Tolerated Well [See Physician Procedure note for Specifics] Pain Scale: 0-10 Numeric [Pain] -Is Patient Pain Free? Yes Neurological: Cranial nerves II-XII grossly intact, Neuro grossly intact Psych/Mental Status: Normal Affect, Appropriate, Alert and oriented to time, place, person, mood and affect Debridement Note Post-Debridement Measurements/Treatment - Nurse 2 - General Ulcer CM Notes Start: 02/27/19 10:08 Freq: Status: Active Protocol: Activity Type Activity Date Activity User E-Sign Co-Sign Detail Recorded Client Recorded Date Recorded By Document 02/27/19 10:48 DV [id number] 02/27/19 10:51 DV Document 03/06/19 11:02 DV [id number] 03/06/19 11:05 DV Document 03/20/19 10:56 DV [id number] 03/20/19 10:57 DV 02/27/19 03/06/19 03/20/19 10:48 11:02 10:56 Wound Center Nurse 2 #1 LLE -Time 10:49 11:03 10:56 -Correct Patient Yes Yes Yes -Correct Side, Site, Position Yes Yes Yes -Correct Procedure Yes Yes Yes -Procedure Performed Yes Yes Yes -Type of Procedure Debridement Debridement Debridement -Clinical Debridement Subcutaneous Subcutaneous Subcutaneous -Post Debridement Size (cm) - Length 0.7 1.2 1.5 -Post Debridement Size (cm) - Width 0.4 1.2 2.3 -Post Debridement Size (cm) - Depth 0.2 0.2 0.2 -Total Square Cm 0.28 1.44 3.45 -Wound/Ulcer Outcome Not Healed Not Healed Not Healed -Ulcer Cleansing Rinsed/ Rinsed/ Rinsed/ Irrigated with Irrigated with Irrigated with Saline Saline Saline -Foul Odor after Cleansing No No No -Bioengineered Tissue No No No -Bleeding Controlled with Pressure Pressure Pressure -Offloading No No No -Treatment Response Procedure Procedure Procedure Tolerated Well Tolerated Well Tolerated Well Pain Scale: 0-10 Numeric Is Patient Pain Free? Yes Yes Yes Laterality: Left - Anterolateral calf Type of Debridement: Excisional debridement Anesthesia Used: 5% Lidocaine Gel Depth: Down to and including healthy tissue, in the subcutaneous layer Percentage of wound debrided: 100 Instrument Used: 5mm curette Tissue Removed: Bioburden and nonviable tissue Severity: Fat Layer Exposed Amount of bleeding with debridement: Mild Bleeding Controlled with: Compression and gauze Patient tolerated procedure well Assessment/Plan Active Problems Traumatic open wound of left lower leg (Chronic) History of tobacco use (Chronic) Peripheral artery disease (Chronic) Intermittent claudication of both lower extremities due to atherosclerosis (Chronic) Leg swelling (Chronic) Assessment: This is a 78-year-old female who presents with an open wound on the left anterior tibial surface, which has been present for approximately 2 years. By history, the patient has multiple medical problems, which have been listed above. Based upon history, and past medical records, it appears as though the patient suffers from intermittent claudication secondary to peripheral arterial occlusive disease. We have received medical records from [facility], which have been reviewed. These records will be made part of the patient's chart. Her EKG is noted to be abnormal, suspicious for anterior septal ischemia. Transthoracic echocardiography reveals mildly reduced systolic function. Mild hypokinesis of the anterior, anterolateral, and inferolateral myocardium is noted. As result, the patient is scheduled for a cardiac catheterization on March 26, 2019, at [facility] in [place], [place]. We have received a copy of the patient's recent lower extremity arterial study, revealing evidence of moderate arterial insufficiency of the left lower extremity, with an ZIA of 0.69. It is anticipated that the patient will be undergoing vascular surgery consultation with Dr. Jn Abraham in the near future, though an appointment is yet to be scheduled. It is noted that the patient has pre-existing comorbid medical conditions, with a recent history of pulmonary embolism for which she is on systemic anticoagulation therapy with Xarelto. Patient has had some recent laboratory studies, and others have been recently obtained on 02/19/19. Results are as follows: Sodium 140, potassium 3.7, chloride 106, BUN 12, creatinine 0.97, glucose 94, calcium 9.0, AST 16, ALT 21, total protein 7.4, albumin 3.6, serum prealbumin 25.2. As result of the erythema about the patient's left lower extremity wound, we have obtained swab cultures for both aerobic and anaerobic bacterial growth. Plan: Patient has been encouraged to optimize her nutritional intake. She has been encouraged to elevate her lower extremities as much as possible, and to refrain from sleeping in a recliner at night. Activity has been encouraged. She is to continue in her efforts to cease smoking, last having smoked in November 2018. We are to continue the use of Analilia topically to the patient's open left lower extremity wound. The patient, and her daughter at the bedside, have been instructed in the appropriate means of applying the Analilia. Patient is to return in 2 weeks for reevaluation. Swab cultures have been obtained of the patient's left lower extremity wound, and results will be awaited. It is noted that the patient is to undergo a cardiac catheterization on March 26, 2019. She also is to arrange for evaluation by a vascular surgeon, Dr. Jn Abraham, for the near future. Patient is not currently a smoker, and has been counseled to continue her efforts to stop smoking. Influenza vaccine was not administered today. Patient stands 5 feet 5 inches tall. She weighs 137 pounds. Her BMI is 22.8, which is normal.
== END 2019-03-23 23:59 ==
LOC: WC 10:30
PROVIDERS: Family Provider Student in an Organized Health Care Education/Training Program; PCP Student in an Organized Health Care Education/Training Program; Visit Provider Surgery
DX: I70.213 Atherosclerosis of native arteries of extremities with intermittent claudication, bilateral legs (principal); S89.8 Other specified injuries of lower leg; W22.09XS Striking against other stationary object, sequela; J44.9 Chronic obstructive pulmonary disease, unspecified; Z87.891 Personal history of nicotine dependence; Z86.711 Personal history of pulmonary embolism; Z79.01 Long term (current) use of anticoagulants; I50.9 Heart failure, unspecified; I10 Essential (primary) hypertension; N18.3 Chronic kidney disease, stage 3 (moderate); E03.9 Hypothyroidism, unspecified; M16.9 Osteoarthritis of hip, unspecified; I13.0 Hypertensive heart and chronic kidney disease with heart failure and stage 1 through stage 4 chronic kidney disease, or unspecified chronic kidney disease; T79.8XXA Other early complications of trauma, initial encounter; Z79.899 Other long term (current) drug therapy
CPT/HCPCS: 11042

== ENCOUNTER → 2019-03-20 15:05 | Outpatient (CLI) | payer MEDICARE, OTHER, SELFPAY ==
[2019-03-20 10:34] VITALS: BMI 22.7
[2019-03-20 18:27] LABS: M R Staph aureus DNA By PCR Negative (Negative); Probe Check PASS; Specimen Processing Control PASS; Staph aureus DNA By PCR NEGATIVE (Negative)
== END ==
PROVIDERS: PCP Student in an Organized Health Care Education/Training Program; Referring Provider Surgery; Visit Provider Surgery
DX: L97.929 Non-pressure chronic ulcer of unspecified part of left lower leg with unspecified severity (principal)
CPT/HCPCS: 87070; 87075; 87077; 87186; 87205; 87640

== ENCOUNTER → 2019-04-16 09:52 | Outpatient (CLI) | payer MEDICARE, OTHER, SELFPAY ==
[2019-03-20 10:34] VITALS: BMI 22.7
[2019-04-10 11:01] VITALS: BMI 22.7
--- NOTE | 2019-04-16 10:03 | ADUL_ITS ---
Reason For Study: Atherosclerosis Left Velocities Ext Iliac Artery, dist = 78.9 cm./sec. Common Femoral Artery, mid = 108.9 cm./sec. Supf. Femoral Artery, prox = 198.2 cm./sec. Supf. Femoral Artery, mid = 146.6 cm./sec. Supf. Femoral Artery, dist = 99.9 cm./sec. Profunda Femoral Artery = 92.8 cm./sec. Popliteal Artery, proximal, = 61.8 cm./sec. Popliteal Artery, mid = 43.2 cm./sec. Popliteal Artery, distal = 33 cm./sec. Post. Tibial Artery, prox = 121.1 cm./sec. Post Tibial Artery, mid = 33 cm./sec. Peroneal Artery, prox = 29.4 cm./sec. Peroneal Artery, mid = 30.8 cm./sec. Ant.Tibial Artery, prox = 51.7 cm./sec. Ant Tibial Artery, mid = 46.5 cm./sec. Procedure Unable to visualize distal [employer], PeroA and PAYAM due to bandage. Exam performed in department. Interpretation Summary 1. Left leg with no stenosis and biphasic flow noted. Ordering Physician: Jn Abraham Referring Physician: Edy Patton Performed By: Margaret Devi RVT
--- NOTE | 2019-04-16 10:03 | AAVD_ITS ---
Reason For Study: Atherosclerosis Aorta Measurements Aorta Doppler Measurements Proximal aorta measures2.61 x 2.63cm. in cross- Peak systolic flow velocities within the proximal sectional axis. aorta measure 61.4 cm/sec. Proximal aorta measures2.64cm. in longitudinal Peak systolic flow velocities within the mid aorta axis. measure 31.7 cm/sec. Mid aorta measures3.18 x 3.18cm. in cross- sectional axis. Mid aorta measures3.173cm. in longitudinal axis. Distal aorta measures4.14 x 3.95cm. in cross- sectional axis. Distal aorta measures4.11cm. in longitudinal axis. Left Iliac Artery Left iliac artery measures 0.61 x 0.60 cm. in the cross-sectional axis. Left iliac artery measures 0.68 cm. in the longitudinal axis. Peak systolic velocity in the left iliac artery measures 79.4 cm/sec. Right Iliac Artery Right iliac artery measures 0.65 x 0.65 cm. in the cross-sectional axis. Right iliac artery measures 0.83 cm. in the longitudinal axis. Peak systolic velocity in the right iliac artery measures 77.1 cm/sec. Procedure Aorta IVC Iliac vasculature or bypass grafts [id number]. Exam performed in department. Interpretation Summary 1. Aortic aneurysm 4.1cm 2. No aortoiliac stenosis. Ordering Physician: Jn Abraham Referring Physician: Edy Patton Performed By: Margaret Devi RVT
--- NOTE | 2019-04-16 10:03 | ART_ITS ---
Reason For Study: Atherosclerosis Procedure A bilateral lower extremity continuous wave Doppler with analog waveform analysis and ankle brachial indexes. Left Segmental Pressures Left brachial= 175mmHg. Left posterior tibial artery = 117mmHg. Left dorsalis pedis artery = 125mmHg. Left digit = 0.45 mmHg. The left dorsalis pedis waveforms are monophasic. The left posterior tibial artery waveforms are monophasic. Right Segmental Pressures Right brachial= 169mmHg. Right posterior tibial artery = 187mmHg. Right dorsalis pedis artery = 170mmHg. Right digit = 121 mmHg. The right dorsalis pedis waveforms are triphasic. The right posterior tibial artery waveforms are triphasic. Indices The right ankle brachial index by the dorsalis pedis is 0.97. The right ankle brachial index by the posterior tibial artery is 1.07. The right digital-brachial index is 0.69. The left ankle brachial index by the dorsalis pedis is 0.71. The left ankle brachial index by the posterior tibial artery is 0.67. The left digital-brachial index is 0.45. Interpretation Summary 1. right leg ZIA 1.07 and triphasic flow 2. Left leg ZIA 0.71 and biphasic flow. Ordering Physician: Jn Abraham Referring Physician: Edy Patton Performed By: Margaret Devi RVT
== END ==
PROVIDERS: PCP Student in an Organized Health Care Education/Training Program; Referring Provider Surgery Vascular Surgery; Visit Provider Surgery Vascular Surgery
DX: I70.248 Atherosclerosis of native arteries of left leg with ulceration of other part of lower leg (principal); I70.0 Atherosclerosis of aorta; I77.1 Stricture of artery
CPT/HCPCS: 93922; 93926; 93978

== ENCOUNTER 2019-04-17 11:00 | Outpatient (RCR) | payer MEDICARE, OTHER, SELFPAY ==
[2019-03-24 01:00] VITALS: BP 144/50; PULSE 59; RESP 16; TEMP 37.1
[2019-04-10 11:01] VITALS: BP 178/72; PULSE 62; RESP 18; TEMP 36.6; BMI 22.7
--- NOTE | 2019-04-10 11:27 | HP.PCM_ITS ---
(1) Traumatic open wound of left lower leg Status: Chronic Current Visit: Yes Qualifiers: Encounter type: subsequent encounter Code(s): S81.802A - Unspecified open wound, left lower leg, initial encounter (2) History of pulmonary embolism Status: Chronic Current Visit: No Code(s): Z86.711 - Personal history of pulmonary embolism (3) On continuous oral anticoagulation Status: Chronic Current Visit: Yes Code(s): Z79.01 - adjunct faculty for medical terminology (current) use of anticoagulants (4) History of tobacco use Status: Chronic Current Visit: Yes Code(s): Z87.891 - Personal history of nicotine dependence (5) Peripheral artery disease Status: Chronic Current Visit: Yes Code(s): I73.9 - Peripheral vascular disease, unspecified (6) Intermittent claudication of both lower extremities due to atherosclerosis Status: Chronic Current Visit: Yes Code(s): I70.213 - Atherosclerosis of [place] arteries of extremities with intermittent claudication, bilateral legs (7) COPD (chronic obstructive pulmonary disease) Status: Chronic Current Visit: No Code(s): J44.9 - Chronic obstructive pulmonary disease, unspecified (8) History of goiter Status: Chronic Current Visit: No Code(s): Z86.39 - Personal history of other endocrine, nutritional and metabolic disease (9) CHF (congestive heart failure) Status: Chronic Current Visit: No Code(s): I50.9 - Heart failure, unspecified (10) Hypertension Status: Chronic Current Visit: No Code(s): I10 - Essential (primary) hypertension (11) Leg swelling Status: Chronic Current Visit: Yes Code(s): M79.89 - Other specified soft tissue disorders (12) Hypothyroidism Status: Chronic Current Visit: No Code(s): E03.9 - Hypothyroidism, unspecified (13) Chronic renal insufficiency, stage III (moderate) Status: Chronic Current Visit: No Code(s): N18.3 - Chronic kidney disease, stage 3 (moderate) (14) Degenerative arthritis of hip Status: Chronic Current Visit: No Code(s): M16.9 - Osteoarthritis of hip, unspecified History of Present Illness Date of Service: 04/10/19 Chief Complaint: Chronic, nonhealing, traumatic wound of the left anterior tibial surface History of Wound: This is a 78-year-old female who presented for evaluation and management relative to a chronic, nonhealing, traumatic wound of the left anterior tibial surface. The wound had been present for approximately 2 years. It occurred as a result of banging her left emery against wooden steps. The traumatic event occurred approximately 2 years ago. The wound has failed to heal. She was using a steroid ointment topically. Her primary care physician, Dr. Patton, had recently prescribed a 5-day course of oral antibiotics. The patient, and her daughter at the bedside, could not recall the name of the antibiotic. The patient had been recently evaluated by her primary care physician, and laboratory studies had been obtained. Results were as follows: On February 01, 2019, white blood count was 7.70, hemoglobin 11.8, hematocrit 35.3, platelets 226,000. On January 09, 2019, the following labs were recorded: Glucose 80, sodium 140, potassium 4.2, chloride 103, BUN 28, creatinine 1.07, calcium 7.8. A noninvasive lower extremity arterial study was formed at [facility] on February 08, 2019. Results have been recently obtained, revealing the right lower extremity to be relatively normal, without evidence of arterial occlusive disease. The left lower extremity demonstrates moderate arterial disease with a resting left ankle-brachial index of 0.69. The patient has been evaluated by a vascular surgeon, Dr. Jn Abraham, within the last week, who has arranged for the patient to undergo a battery of diagnostic studies in the near future. The patient relates swelling in her lower extremities. She sleeps in a recliner at night. Her past medical records indicate the presence of intermittent claudication, and the patient is limited in ambulation for reasons she describes as being related to degenerative arthritis of the hip. The patient is a , and lives with her daughter. Patient was a heavy smoker until November,, at which time she was hospitalized with exacerbation of COPD. At that time, she was diagnosed with a pulmonary embolism, and has been on systemic anticoagulation since that time with Xarelto, and told that this would continue for at least 1 year. She has stopped smoking, and has been using a nicotine patch. Past Medical History Past Medical History: Chronic Problems Traumatic open wound of left lower leg (Chronic) History of pulmonary embolism (Chronic) On continuous oral anticoagulation (Chronic) History of tobacco use (Chronic) Peripheral artery disease (Chronic) Intermittent claudication of both lower extremities due to atherosclerosis (Chronic) COPD (chronic obstructive pulmonary disease) (Chronic) History of goiter (Chronic) CHF (congestive heart failure) (Chronic) Hypertension (Chronic) Leg swelling (Chronic) Hypothyroidism (Chronic) Chronic renal insufficiency, stage III (moderate) (Chronic) Degenerative arthritis of hip (Chronic) Surgical History: - - Patient has a history of thyroidectomy for goiter. The patient is a G5, P5, Ab0 Home Medications: Ambulatory Orders Medication Instructions Recorded Acetaminophen 500 mg PO Q4H PRN PRN 02/19/19 Acetaminophen with Codeine 1 ea PO BID 02/19/19 [Acetaminophen-Cod #2 Tablet] Albuterol Inhaler [Ventolin Hfa 2 puff INHALATION Q6H PRN PRN 02/19/19 (SP)] Carvedilol 25 mg PO BID 02/19/19 Cholecalciferol (VIT D3) 400 02/19/19 Fluticasone Furoate [Arnuity 02/19/19 Ellipta] Gabapentin [Neurontin] 400 mg PO 02/19/19 Levothyroxine [Synthroid] 112 mcg PO DAILY 02/19/19 Loratadine 10 mg PO 02/19/19 Mirabegron [Myrbetriq] 25 mg PO 02/19/19 Nicotine [Nicotine Patch] 1 ea TD 02/19/19 Omeprazole [Prilosec] 20 mg PO DAILY 02/19/19 Oxycodone HCl/Acetaminophen PO Q6H PRN PRN 02/19/19 [Percocet 5-325] Pravastatin [Pravachol] 20 mg PO QHS 02/19/19 Rivaroxaban [Xarelto] 20 mg PO DAILY 02/19/19 Ropinirole HCl 0.5 mg PO 02/19/19 Furosemide [Lasix] 40 mg PO DAILY 02/27/19 - Family History Paternal - - The patient's father in his 70s with a history of COPD and skin cancer. The patient's mother in her 70s with a history of stomach cancer. Smoking Status: Former smoker - The patient quit smoking approximately 3 months ago, and using cessation patches since. Tobacco Use: Cigarettes Review of Systems Constitutional: Denies: Chills, Fever, Weight Change Eyes: Denies: Pain, Vision Change HEENT: Denies: Difficulty Hearing, Difficulty Swallowing, Sinus Congestion Cardiovascular: Denies: Chest Pain, Palpitations Respiratory: Denies: Cough, Shortness of Breath Gastrointestinal: Denies: Diarrhea, Nausea, Vomiting Genitourinary: Denies: Dysuria, Hematuria Endocrine: Denies: Heat/ Cold Intolerance, Polydipsia, Polyuria Hematologic/ Lymphatic: Denies: Easy Bruising, Easy Bleeding - Physical Exam Vital Signs Temp Pulse Resp BP 98 F 62 18 178/72 H 04/10/19 11:01 04/10/19 11:01 04/10/19 11:01 04/10/19 11:01 General: Alert, Oriented x3, Cooperative, No apparent distress, Well developed, Well nourished HEENT: Atraumatic, PERRLA, EOMI, Normocephalic Oral: Moist Mucosa Neck: No JVD Lungs: Normal air movement Abdomen: Non-Distended Extremities: No clubbing, No cyanosis, No edema, No Calf Tenderness, - - The ulceration on the left anterolateral calf persists. It is generally pink and healthy in appearance. There is a small amount of bioburden and nonviable tissue. There is no sign of infection or cellulitis. Dimensions are documented elsewhere. Skin: No rashes Wound Measurements and Assessment WC - Nurse 1 - General Ulcer Measurement Start: 04/03/19 11:54 Freq: Status: Active Protocol: Activity Type Activity Date Activity User E-Sign Co-Sign Detail Recorded Client Recorded Date Recorded By Document 04/10/19 11:01 [facility] [id number] 04/10/19 11:10 [facility] 04/10/19 11:01 W[facility] Center Nurse 1 [Ulcer Assessment] #1 LLE -Combined with other wound No -Current Size (cm) - Length 0.1 -Current Size (cm) - Width 0.1 -Current Size (cm) - Depth 0.1 -Total Square Cm 0.01 -Date of Last Picture (Recall this 04/10/19 field) -Photo Taken Yes -Epithelialization None Present -Tunneling No -Undermining/Tunneling No -Circular Undermining No -Exudate Amt None Present -Texture (Johnna-wound Skin Appearance) Assessed, Scarring -Moisture (Johnna-wound Skin Appearance Assessed,Dry/ ) Scaly -Color (Johnna-wound Skin Appearance) Assessed -Temperature (Johnna-wound Skin No Abnormality Appearance) (Pt Warm) -Tenderness on Palpation (Johnna-wound Yes Skin Appearance) -Ulcer Cleansing Rinsed/ Irrigated with Saline -Foul Odor after Cleansing No -Anesthetic Used 5% Lidocaine Gel [Edema Assessment] -Lower Limb Edema Present Yes -Left Calf (cm) 31.2 -Left Ankle (cm) 19.6 Neurological: Cranial nerves II-XII grossly intact, Neuro grossly intact Psych/Mental Status: Normal Affect, Appropriate, Alert and oriented to time, place, person, mood and affect Debridement Note Laterality: Left - Anterolateral calf Type of Debridement: Excisional debridement Anesthesia Used: 5% Lidocaine Gel Depth: Down to and including healthy tissue, in the subcutaneous layer Percentage of wound debrided: 100 Instrument Used: 5mm curette Tissue Removed: Bioburden and nonviable tissue Severity: Fat Layer Exposed Amount of bleeding with debridement: Mild Bleeding Controlled with: Compression and gauze Patient tolerated procedure well Assessment/Plan Active Problems Traumatic open wound of left lower leg (Chronic) On continuous oral anticoagulation (Chronic) History of tobacco use (Chronic) Peripheral artery disease (Chronic) Intermittent claudication of both lower extremities due to atherosclerosis (Chronic) Leg swelling (Chronic) Assessment: This is a 78-year-old female who presented with an open wound on the left anterolateral tibial surface, which has been present for approximately 2 years. By history, the patient has multiple medical problems, which have been listed above. Based upon history, and past medical records, it appears as though the patient suffers from intermittent claudication secondary to peripheral arterial occlusive disease. We have received medical records from [facility], which have been reviewed, and demonstrate moderate arterial occlusive disease in the left lower extremity, with a resting left ankle-brachial index of 0.69. Her EKG is noted to be abnormal, suspicious for anterior septal ischemia. Transthoracic echocardiography reveals mildly reduced systolic function. Mild hypokinesis of the anterior, anterolateral, and inferolateral myocardium is noted. The patient is under the care of a vascular surgeon, Dr. Jn Abraham, who has arranged for a battery of diagnostic vascular studies in the near future. We are to request his recent medical records, and will await the results of pending diagnostic testing. It is noted that the patient has pre-existing comorbid medical conditions, with a recent history of pulmonary embolism for which she is on systemic anticoagulation therapy with Xarelto. Patient has had some recent laboratory studies, and others have been recently obtained on 02/19/19. Results are as follows: Sodium 140, potassium 3 .7, chloride 106, BUN 12, creatinine 0.97, glucose 94, calcium 9.0, AST 16, ALT 21, total protein 7.4, albumin 3.6, serum prealbumin 25.2. Recent wound cultures have been obtained, revealing very rare growth of staph epidermidis, which may well be contaminant. Plan: Patient has been encouraged to optimize her nutritional intake. She has been encouraged to elevate her lower extremities as much as possible, and to refrain from sleeping in a recliner at night. Activity has been encouraged. The patient has recently obtained compression stockings, though the degree of c ompression is uncertain. She is to bring the packaging with her to her next appointment so that the degree of compression can be documented. She has discontinued smoking. We are to continue the use of Analilia topically to the patient's open left lower extremity wound. The patient, and her daughter at the bedside, have been instructed in the appropriate means of applying the Analilia. Patient is to return in 1 weeks for reevaluation. Consideration is to be given to the use of a skin graft substitute such as EpiFix, for which preauthorization will be sought. Swab cultures have been obtained of the patient's left lower extremity wound, and results are suspected to be skin contaminant. It is noted that the patient was to undergo a cardiac catheterization on March 26, 2019, though the results are unknown. Effort will be made to obtain medical records from Dr. Abraham, vascular surgeon. Patient is not currently a smoker, and has been counseled to continue her efforts to stop smoking. Influenza vaccine was not administered today. Patient stands 5 feet 5 inches tall. She weighs 137 pounds. Her BMI is 22.8, which is normal.
--- NOTE | 2019-04-10 11:46 | PCM.WC.HP ---
(1) Traumatic open wound of left lower leg Status: Chronic Current Visit: Yes Qualifiers: Encounter type: subsequent encounter Code(s): S81.802A - Unspecified open wound, left lower leg, initial encounter (2) History of pulmonary embolism Status: Chronic Current Visit: No Code(s): Z86.711 - Personal history of pulmonary embolism (3) On continuous oral anticoagulation Status: Chronic Current Visit: Yes Code(s): Z79.01 - skilled nursing (current) use of anticoagulants (4) History of tobacco use Status: Chronic Current Visit: Yes Code(s): Z87.891 - Personal history of nicotine dependence (5) Peripheral artery disease Status: Chronic Current Visit: Yes Code(s): I73.9 - Peripheral vascular disease, unspecified (6) Intermittent claudication of both lower extremities due to atherosclerosis Status: Chronic Current Visit: Yes Code(s): I70.213 - Atherosclerosis of [place] arteries of extremities with intermittent claudication, bilateral legs (7) COPD (chronic obstructive pulmonary disease) Status: Chronic Current Visit: No Code(s): J44.9 - Chronic obstructive pulmonary disease, unspecified (8) History of goiter Status: Chronic Current Visit: No Code(s): Z86.39 - Personal history of other endocrine, nutritional and metabolic disease (9) CHF (congestive heart failure) Status: Chronic Current Visit: No Code(s): I50.9 - Heart failure, unspecified (10) Hypertension Status: Chronic Current Visit: No Code(s): I10 - Essential (primary) hypertension (11) Leg swelling Status: Chronic Current Visit: Yes Code(s): M79.89 - Other specified soft tissue disorders (12) Hypothyroidism Status: Chronic Current Visit: No Code(s): E03.9 - Hypothyroidism, unspecified (13) Chronic renal insufficiency, stage III (moderate) Status: Chronic Current Visit: No Code(s): N18.3 - Chronic kidney disease, stage 3 (moderate) (14) Degenerative arthritis of hip Status: Chronic Current Visit: No Code(s): M16.9 - Osteoarthritis of hip, unspecified (15) 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 The wound had been present for approximately 2 years. It occurred as a result of banging her left emery against wooden steps. The traumatic event occurred approximately 2 years ago. The wound has failed to heal. She was using a steroid ointment topically. Her primary care physician, Dr. Patton, had recently prescribed a 5-day course of oral antibiotics. The patient, and her daughter at the bedside, could not recall the name of the antibiotic. The patient had been recently evaluated by her primary care physician, and laboratory studies had been obtained. Results were as follows: On February 01, 2019, white blood count was 7.70, hemoglobin 11.8, hematocrit 35.3, platelets 226,000. On January 09, 2019, the following labs were recorded: Glucose 80, sodium 140, potassium 4.2, chloride 103, BUN 28, creatinine 1.07, calcium 7.8. A noninvasive lower extremity arterial study was formed at [facility] on February 08, 2019. Results have been recently obtained, revealing the right lower extremity to be relatively normal, without evidence of arterial occlusive disease. The left lower extremity demonstrates moderate arterial disease with a resting left ankle-brachial index of 0.69. The patient has been evaluated by a vascular surgeon, Dr. Jn Abraham, within the last week, who has arranged for the patient to undergo a battery of diagnostic studies in the near future. The patient relates swelling in her lower extremities. She sleeps in a recliner at night. Her past medical records indicate the presence of intermittent claudication, and the patient is limited in ambulation for reasons she describes as being related to degenerative arthritis of the hip. The patient is a , and lives with her daughter. Patient was a heavy smoker until November,, at which time she was hospitalized with exacerbation of COPD. At that time, she was diagnosed with a pulmonary embolism, and has been on systemic anticoagulation since that time with Xarelto, and told that this would continue for at least 1 year. She has stopped smoking, and has been using a nicotine patch. Past Medical History Past Medical History: Chronic Problems Traumatic open wound of left lower leg (Chronic) History of pulmonary embolism (Chronic) On continuous oral anticoagulation (Chronic) History of tobacco use (Chronic) Peripheral artery disease (Chronic) Intermittent claudication of both lower extremities due to atherosclerosis (Chronic) COPD (chronic obstructive pulmonary disease) (Chronic) History of goiter (Chronic) CHF (congestive heart failure) (Chronic) Hypertension (Chronic) Leg swelling (Chronic) Hypothyroidism (Chronic) Chronic renal insufficiency, stage III (moderate) (Chronic) Degenerative arthritis of hip (Chronic) 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 The patient is a G5, P5, Ab0 Home Medications: Ambulatory Orders Medication Instructions Recorded Acetaminophen 500 mg PO Q4H PRN PRN 02/19/19 Acetaminophen with Codeine 1 ea PO BID 02/19/19 [Acetaminophen-Cod #2 Tablet] Albuterol Inhaler [Ventolin Hfa 2 puff INHALATION Q6H PRN PRN 02/19/19 (SP)] Carvedilol 25 mg PO BID 02/19/19 Cholecalciferol (VIT D3) 400 02/19/19 Fluticasone Furoate [Arnuity 02/19/19 Ellipta] Gabapentin [Neurontin] 400 mg PO 02/19/19 Levothyroxine [Synthroid] 112 mcg PO DAILY 02/19/19 Loratadine 10 mg PO 02/19/19 Mirabegron [Myrbetriq] 25 mg PO 02/19/19 Nicotine [Nicotine Patch] 1 ea TD 02/19/19 Omeprazole [Prilosec] 20 mg PO DAILY 02/19/19 Oxycodone HCl/Acetaminophen PO Q6H PRN PRN 02/19/19 [Percocet 5-325] Pravastatin [Pravachol] 20 mg PO QHS 02/19/19 Rivaroxaban [Xarelto] 20 mg PO DAILY 02/19/19 Ropinirole HCl 0.5 mg PO 02/19/19 Furosemide [Lasix] 40 mg PO DAILY 02/27/19 - Family History Paternal - - The patient's father in his 70s with a history of COPD and skin cancer. The patient's mother in her 70s with a history of stomach cancer. Smoking Status: Former smoker - The patient quit smoking approximately 3 months ago, and using cessation patches since. Tobacco Use: Cigarettes - Physical Exam Vital Signs Temp Pulse Resp BP 98 F 62 18 178/72 H 04/10/19 11:01 04/10/19 11:01 04/10/19 11:01 04/10/19 11:01 Wound Measurements and Assessment WC - Nurse 1 - General Ulcer Measurement Start: 04/03/19 11:54 Freq: Status: Active Protocol: Activity Type Activity Date Activity User E-Sign Co-Sign Detail Recorded Client Recorded Date Recorded By Document 04/10/19 11:01 [facility] [id number] 04/10/19 11:10 [facility] 04/10/19 11:01 Wound Center Nurse 1 [Ulcer Assessment] #1 LLE -Combined with other wound No -Current Size (cm) - Length 0.1 -Current Size (cm) - Width 0.1 -Current Size (cm) - Depth 0.1 -Total Square Cm 0.01 -Date of Last Picture (Recall this 04/10/19 field) -Photo Taken Yes -Epithelialization None Present -Tunneling No -Undermining/Tunneling No -Circular Undermining No -Exudate Amt None Present -Texture (Johnna-wound Skin Appearance) Assessed, Scarring -Moisture (Johnna-wound Skin Appearance Assessed,Dry/ ) Scaly -Color (Johnna-wound Skin Appearance) Assessed -Temperature (Johnna-wound Skin No Abnormality Appearance) (Pt Warm) -Tenderness on Palpation (Johnna-wound Yes Skin Appearance) -Ulcer Cleansing Rinsed/ Irrigated with Saline -Foul Odor after Cleansing No -Anesthetic Used 5% Lidocaine Gel [Edema Assessment] -Lower Limb Edema Present Yes -Left Calf (cm) 31.2 -Left Ankle (cm) 19.6 Assessment/Plan Active Problems Traumatic open wound of left lower leg (Chronic) On continuous oral anticoagulation (Chronic) History of tobacco use (Chronic) Peripheral artery disease (Chronic) Intermittent claudication of both lower extremities due to atherosclerosis (Chronic) Leg swelling (Chronic) 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 By history, the patient has multiple medical problems, which have been listed above. Based upon history, and past medical records, it appears as though the patient suffers from intermittent claudication secondary to peripheral arterial occlusive disease. We have received medical records from [facility], which have been reviewed, and demonstrate moderate arterial occlusive disease in the left lower extremity, with a resting left ankle-brachial index of 0.69. Her EKG is noted to be abnormal, suspicious for anterior septal ischemia. Transthoracic echocardiography reveals mildly reduced systolic function. Mild hypokinesis of the anterior, anterolateral, and inferolateral myocardium is noted. The patient is under the care of a vascular surgeon, Dr. Jn Abraham, who has arranged for a battery of diagnostic vascular studies in the near future. We are to request his recent medical records, and will await the results of pending diagnostic testing. It is noted that the patient has pre-existing comorbid medical conditions, with a recent history of pulmonary embolism for which she is on systemic anticoagulation therapy with Xarelto. Patient has had some recent laboratory studies, and others have been recently obtained on 02/19/19. Results are as follows: Sodium 140, potassium 3.7, chloride 106, BUN 12, creatinine 0.97, glucose 94, calcium 9.0, AST 16, ALT 21, total protein 7.4, albumin 3.6, serum prealbumin 25.2. Recent wound cultures have been obtained, revealing very rare growth of staph epidermidis, which may well be contaminant. Plan: Patient has been encouraged to optimize her nutritional intake. She has been encouraged to elevate her lower extremities as much as possible, and to refrain from sleeping in a recliner at night. Activity has been encouraged. The patient has recently obtained compression stockings, though the degree of compression is uncertain. She is to bring the packaging with her to her next appointment so that the degree of compression can be documented. She has discontinued smoking. We are to continue the use of Analilia topically to the patient's open left lower extremity wound. The patient, and her daughter at the bedside, have been instructed in the appropriate means of applying the Analilia. Patient is to return in 1 weeks for reevaluation. Consideration is to be given to the use of a skin graft substitute such as EpiFix, for which preauthorization will be sought. Swab cultures have been obtained of the patient's left lower extremity wound, and results are suspected to be skin contaminant. It is noted that the patient was to undergo a cardiac catheterization on March 26, 2019, though the results are unknown. Effort will be made to obtain medical records from Dr. Abraham, vascular surgeon. Patient is not currently a smoker, and has been counseled to continue her efforts to stop smoking. Influenza vaccine was not administered today. Patient stands 5 feet 5 inches tall. She weighs 137 pounds. Her BMI is 22.8, which is normal.
[2019-04-17 11:11] VITALS: BP 154/78; PULSE 89; RESP 16; TEMP 36.8; BMI 22.7
--- NOTE | 2019-04-17 11:45 | PCM.WC.HP ---
(1) Traumatic open wound of left lower leg Status: Chronic Current Visit: Yes Qualifiers: Encounter type: subsequent encounter Code(s): S81.802A - Unspecified open wound, left lower leg, initial encounter (2) History of pulmonary embolism Status: Chronic Current Visit: No Code(s): Z86.711 - Personal history of pulmonary embolism (3) On continuous oral anticoagulation Status: Chronic Current Visit: Yes Code(s): Z79.01 - residential (current) use of anticoagulants (4) History of tobacco use Status: Chronic Current Visit: Yes Code(s): Z87.891 - Personal history of nicotine dependence (5) Peripheral artery disease Status: Chronic Current Visit: Yes Code(s): I73.9 - Peripheral vascular disease, unspecified (6) Intermittent claudication of both lower extremities due to atherosclerosis Status: Chronic Current Visit: Yes Code(s): I70.213 - Atherosclerosis of [place] arteries of extremities with intermittent claudication, bilateral legs (7) COPD (chronic obstructive pulmonary disease) Status: Chronic Current Visit: No Code(s): J44.9 - Chronic obstructive pulmonary disease, unspecified (8) History of goiter Status: Chronic Current Visit: No Code(s): Z86.39 - Personal history of other endocrine, nutritional and metabolic disease (9) CHF (congestive heart failure) Status: Chronic Current Visit: No Code(s): I50.9 - Heart failure, unspecified (10) Hypertension Status: Chronic Current Visit: No Code(s): I10 - Essential (primary) hypertension (11) Leg swelling Status: Chronic Current Visit: Yes Code(s): M79.89 - Other specified soft tissue disorders (12) Hypothyroidism Status: Chronic Current Visit: No Code(s): E03.9 - Hypothyroidism, unspecified (13) Chronic renal insufficiency, stage III (moderate) Status: Chronic Current Visit: No Code(s): N18.3 - Chronic kidney disease, stage 3 (moderate) (14) Degenerative arthritis of hip Status: Chronic Current Visit: No Code(s): M16.9 - Osteoarthritis of hip, unspecified (15) 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 The wound had been present for approximately 2 years. It occurred as a result of banging her left emery against wooden steps. The traumatic event occurred approximately 2 years ago. The wound has failed to heal. She was using a steroid ointment topically. Her primary care physician, Dr. Patton, had recently prescribed a 5-day course of oral antibiotics. The patient, and her daughter at the bedside, could not recall the name of the antibiotic. The patient had been recently evaluated by her primary care physician, and laboratory studies had been obtained. Results were as follows: On February 01, 2019, white blood count was 7.70, hemoglobin 11.8, hematocrit 35.3, platelets 226,000. On January 09, 2019, the following labs were recorded: Glucose 80, sodium 140, potassium 4.2, chloride 103, BUN 28, creatinine 1.07, calcium 7.8. A noninvasive lower extremity arterial study was formed at [facility] on February 08, 2019. Results have been recently obtained, revealing the right lower extremity to be relatively normal, without evidence of arterial occlusive disease. The left lower extremity demonstrates moderate arterial disease with a resting left ankle-brachial index of 0.69. The patient has been evaluated by a vascular surgeon, Dr. Jn Abraham, within the last week, who has arranged for the patient to undergo a battery of diagnostic studies in the near future. The patient relates swelling in her lower extremities. She sleeps in a recliner at night. Her past medical records indicate the presence of intermittent claudication, and the patient is limited in ambulation for reasons she describes as being related to degenerative arthritis of the hip. The patient is a , and lives with her daughter. Patient was a heavy smoker until November,, at which time she was hospitalized with exacerbation of COPD. At that time, she was diagnosed with a pulmonary embolism, and has been on systemic anticoagulation since that time with Xarelto, and told that this would continue for at least 1 year. She has stopped smoking, and has been using a nicotine patch. Past Medical History Past Medical History: Chronic Problems Traumatic open wound of left lower leg (Chronic) History of pulmonary embolism (Chronic) On continuous oral anticoagulation (Chronic) History of tobacco use (Chronic) Peripheral artery disease (Chronic) Intermittent claudication of both lower extremities due to atherosclerosis (Chronic) COPD (chronic obstructive pulmonary disease) (Chronic) History of goiter (Chronic) CHF (congestive heart failure) (Chronic) Hypertension (Chronic) Leg swelling (Chronic) Hypothyroidism (Chronic) Chronic renal insufficiency, stage III (moderate) (Chronic) Degenerative arthritis of hip (Chronic) 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 The patient is a G5, P5, Ab0 Home Medications: Ambulatory Orders Medication Instructions Recorded Acetaminophen 500 mg PO Q4H PRN PRN 02/19/19 Acetaminophen with Codeine 1 ea PO BID 02/19/19 [Acetaminophen-Cod #2 Tablet] Albuterol Inhaler [Ventolin Hfa 2 puff INHALATION Q6H PRN PRN 02/19/19 (SP)] Carvedilol 25 mg PO BID 02/19/19 Cholecalciferol (VIT D3) 400 02/19/19 Fluticasone Furoate [Arnuity 02/19/19 Ellipta] Gabapentin [Neurontin] 400 mg PO 02/19/19 Levothyroxine [Synthroid] 112 mcg PO DAILY 02/19/19 Loratadine 10 mg PO 02/19/19 Mirabegron [Myrbetriq] 25 mg PO 02/19/19 Nicotine [Nicotine Patch] 1 ea TD 02/19/19 Omeprazole [Prilosec] 20 mg PO DAILY 02/19/19 Oxycodone HCl/Acetaminophen PO Q6H PRN PRN 02/19/19 [Percocet 5-325] Pravastatin [Pravachol] 20 mg PO QHS 02/19/19 Rivaroxaban [Xarelto] 20 mg PO DAILY 02/19/19 Ropinirole HCl 0.5 mg PO 02/19/19 Furosemide [Lasix] 40 mg PO DAILY 02/27/19 - Family History Paternal - - The patient's father in his 70s with a history of COPD and skin cancer. The patient's mother in her 70s with a history of stomach cancer. Smoking Status: Former smoker - The patient quit smoking approximately 3 months ago, and using cessation patches since. Tobacco Use: Cigarettes Review of Systems Constitutional: Denies: Chills, Fever, Weight Change Eyes: Denies: Pain, Vision Change HEENT: Denies: Difficulty Hearing, Difficulty Swallowing, Sinus Congestion Cardiovascular: Denies: Chest Pain, Palpitations Respiratory: Denies: Cough, Shortness of Breath Gastrointestinal: Denies: Diarrhea, Nausea, Vomiting Genitourinary: Denies: Dysuria, Hematuria Endocrine: Denies: Heat/ Cold Intolerance, Polydipsia, Polyuria Hematologic/ Lymphatic: Denies: Easy Bruising, Easy Bleeding - Physical Exam Vital Signs Temp Pulse Resp BP 98.2 F 89 16 154/78 H 04/17/19 11:11 04/17/19 11:11 04/17/19 11:11 04/17/19 11:11 General: Alert, Oriented x3, Cooperative, No apparent distress, Well developed, Well nourished HEENT: Atraumatic, PERRLA, EOMI, Normocephalic Oral: Moist Mucosa Neck: No JVD Lungs: Normal air movement Abdomen: Non-Distended Extremities: No clubbing, No cyanosis, No Calf Tenderness, - - There is no significant swelling in the left lower extremity. The ulceration on the left anterolateral calf persists. Dimensions are documented elsewhere. There is no sign of infection or cellulitis. There is a moderate amount of bioburden. Skin: No rashes Wound Measurements and Assessment WC - Nurse 1 - General Ulcer Measurement Start: 04/03/19 11:54 Freq: Status: Active Protocol: Activity Type Activity Date Activity User E-Sign Co-Sign Detail Recorded Client Recorded Date Recorded By Document 04/17/19 11:11 [facility] [id number] 04/17/19 11:19 [facility] 04/17/19 11:11 Wound Center Nurse 1 [Ulcer Assessment] #1 LLE -Combined with other wound No -Current Size (cm) - Length 1.5 -Current Size (cm) - Width 1.6 -Current Size (cm) - Depth 0.1 -Total Square Cm 2.40 -Photo Taken No -Epithelialization None Present -Tunneling No -Undermining/Tunneling No -Circular Undermining No -Exudate Amt Medium -Exudate Type Serosanguineous -Wound Margin Distinct, Outline Attached -Granulation Amt Medium (34-66%) -Granulation Quality Red -Slough/Fibrin Yes -Necrosis Amt Medium (34-66%) -Necrotic Tissue Type Adherent Slough -Texture (Johnna-wound Skin Appearance) Assessed, Scarring -Moisture (Johnna-wound Skin Appearance Assessed,Dry/ ) Scaly -Color (Johnna-wound Skin Appearance) Assessed, Hemosiderin Staining -Temperature (Johnna-wound Skin No Abnormality Appearance) (Pt Warm) -Tenderness on Palpation (Johnna-wound No Skin Appearance) -Ulcer Cleansing Rinsed/ Irrigated with Saline -Foul Odor after Cleansing No -Anesthetic Used 5% Lidocaine Gel [Edema Assessment] -Lower Limb Edema Present Yes -Left Calf (cm) 31 -Left Ankle (cm) 19 WC - Nurse 2 - General Ulcer CM Notes Start: 04/03/19 11:54 Freq: Status: Active Protocol: Activity Type Activity Date Activity User E-Sign Co-Sign Detail Recorded Client Recorded Date Recorded By Document 04/17/19 11:34 DV [id number] 04/17/19 11:38 DV 04/17/19 11:34 Wound Center Nurse 2 [Procedure/Treatment] #1 LLE -Time 11:37 -Correct Patient Yes -Correct Side, Site, Position Yes -Correct Procedure Yes -Procedure Performed Yes -Type of Procedure Debridement -Clinical Debridement Subcutaneous -Post Debridement Size (cm) - Length 1.6 -Post Debridement Size (cm) - Width 2.0 -Post Debridement Size (cm) - Depth 0.1 -Total Square Cm 3.20 -Wound/Ulcer Outcome Not Healed -Ulcer Cleansing Rinsed/ Irrigated with Saline -Foul Odor after Cleansing No -Bioengineered Tissue No -Bleeding Controlled with Pressure -Offloading No -Treatment Response Procedure Tolerated Well [See Physician Procedure note for Specifics] Pain Scale: 0-10 Numeric [Pain] -Is Patient Pain Free? Yes Musculoskeletal: No Muscle Wasting Neurological: Cranial nerves II-XII grossly intact, Neuro grossly intact Psych/Mental Status: Normal Affect, Appropriate, Alert and oriented to time, place, person, mood and affect Debridement Note Post-Debridement Measurements/Treatment - Nurse 2 - General Ulcer CM Notes Start: 04/03/19 11:54 Freq: Status: Active Protocol: Activity Type Activity Date Activity User E-Sign Co-Sign Detail Recorded Client Recorded Date Recorded By Document 04/10/19 12:18 [id number] 04/10/19 12:19 JF Document 04/17/19 11:34 DV [id number] 04/17/19 11:38 DV 04/10/19 04/17/19 12:18 11:34 Wound Center Nurse 2 #1 LLE -Time 12:19 11:37 -Correct Patient Yes Yes -Correct Side, Site, Position Yes Yes -Correct Procedure Yes Yes -Procedure Performed Yes Yes -Type of Procedure Debridement Debridement -Clinical Debridement Subcutaneous Subcutaneous -Post Debridement Size (cm) - Length 1.2 1.6 -Post Debridement Size (cm) - Width 1.0 2.0 -Post Debridement Size (cm) - Depth 0.2 0.1 -Total Square Cm 1.20 3.20 -Wound/Ulcer Outcome Not Healed Not Healed -Ulcer Cleansing Rinsed/ Rinsed/ Irrigated with Irrigated with Saline Saline -Foul Odor after Cleansing No No -Bioengineered Tissue No No -Bleeding Controlled with Pressure Pressure -Offloading No No -Treatment Response Procedure Procedure Tolerated Well Tolerated Well Pain Scale: 0-10 Numeric Is Patient Pain Free? Yes Yes Laterality: Left - Anterolateral calf Type of Debridement: Excisional debridement Anesthesia Used: 5% Lidocaine Gel Depth: Down to and including healthy tissue, in the subcutaneous layer Percentage of wound debrided: 100 Instrument Used: 5mm curette Tissue Removed: Bioburden and nonviable tissue Severity: Fat Layer Exposed Amount of bleeding with debridement: Mild Bleeding Controlled with: Compression and gauze Patient tolerated procedure well Assessment/Plan Active Problems Traumatic open wound of left lower leg (Chronic) On continuous oral anticoagulation (Chronic) History of tobacco use (Chronic) Peripheral artery disease (Chronic) Intermittent claudication of both lower extremities due to atherosclerosis (Chronic) Leg swelling (Chronic) 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 By history, the patient has multiple medical problems, which have been listed above. Based upon history, and past medical records, it appears as though the patient suffers from intermittent claudication secondary to peripheral arterial occlusive disease. We have received medical records from [facility], which have been reviewed, and demonstrate moderate arterial occlusive disease in the left lower extremity, with a resting left ankle-brachial index of 0.69. Her EKG is noted to be abnormal, suspicious for anterior septal ischemia. Transthoracic echocardiography reveals mildly reduced systolic function. Mild hypokinesis of the anterior, anterolateral, and inferolateral myocardium is noted. The patient is under the care of a vascular surgeon, Dr. Jn Abraham, who has arranged for a battery of diagnostic vascular studies. The patient underwent several studies yesterday, the results of which are largely pending. Her noninvasive lower extremity arterial study reveals moderate to severe arterial occlusive disease in the left lower extremity, with monophasic waveforms at ankle level, and diminished ankle-brachial and digital brachial indices in the left lower extremity. The patient has an appointment to follow-up henceforth with Dr. Jn Abraham on April 22, and it is suspected that the patient may ultimately be scheduled for arteriography and left lower extremity revascularization. It is noted that the patient has pre-existing comorbid medical conditions, with a recent history of pulmonary embolism for which she is on systemic anticoagulation therapy with Xarelto. Patient has had some recent laboratory studies, and others have been recently obtained on 02/19/19. Results are as follows: Sodium 140, potassium 3.7, chloride 106, BUN 12, creatinine 0.97, glucose 94, calcium 9.0, AST 16, ALT 21, total protein 7.4, albumin 3.6, serum prealbumin 25.2. Recent wound cultures have been obtained, revealing very rare growth of staph epidermidis, which may well be contaminant. Plan: Patient has been encouraged to optimize her nutritional intake. She has been encouraged to elevate her lower extremities as much as possible, and to refrain from sleeping in a recliner at night. Activity has been encouraged. The patient has recently obtained compression stockings, though the degree of compression is uncertain. She has discontinued smoking. We are to continue the use of collagen hydrogel topically to the patient's open left lower extremity wound, applied on a daily basis. The patient, and her daughter at the bedside, have been instructed in the appropriate means of applying the collagen hydrogel. Patient is to return in 1 week for reevaluation. Consideration is to be given to the use of a skin graft substitute such as EpiFix, for which preauthorization will be sought. Swab cultures have been obtained of the patient's left lower extremity wound, and results are suspected to be skin contaminant. It is noted that the patient underwent a cardiac catheterization several weeks ago where it was found that there was a 30% blockage according to the patient's daughter. The patient was placed on medication, though no procedural intervention was felt warranted. We will await the accommodations of Dr. Abraham, and determine whether revascularization of the left lower extremity proves to be of benefit, should it be performed. Patient is not currently a smoker, and has been counseled to continue her efforts to stop smoking. Influenza vaccine was not administered today. Patient stands 5 feet 5 inches tall. She weighs 137 pounds. Her BMI is 22.8, which is normal.
== END 2019-04-21 23:59 ==
LOC: WC 11:00
PROVIDERS: Family Provider Student in an Organized Health Care Education/Training Program; PCP Student in an Organized Health Care Education/Training Program; Visit Provider Surgery
DX: I70.213 Atherosclerosis of native arteries of extremities with intermittent claudication, bilateral legs (principal); S80.812A Abrasion, left lower leg, initial encounter; W22.8XXS Striking against or struck by other objects, sequela; J44.9 Chronic obstructive pulmonary disease, unspecified; I50.9 Heart failure, unspecified; M79.89 Other specified soft tissue disorders; I13.0 Hypertensive heart and chronic kidney disease with heart failure and stage 1 through stage 4 chronic kidney disease, or unspecified chronic kidney disease; E03.9 Hypothyroidism, unspecified; M16.9 Osteoarthritis of hip, unspecified; N18.3 Chronic kidney disease, stage 3 (moderate); Z86.711 Personal history of pulmonary embolism; Z79.01 Long term (current) use of anticoagulants; Z87.891 Personal history of nicotine dependence
CPT/HCPCS: 11042

== ENCOUNTER → 2019-05-02 16:03 | Outpatient (CLI) | payer MEDICARE, OTHER, SELFPAY ==
[2019-04-24 11:22] VITALS: BMI 22.7
--- NOTE | 2019-05-02 16:09 | CT_ITS ---
We are attempting to reach an attending provider to discuss findings. An addendum with communication details will be sent when the communication is complete. STUDY: CTA OF THE ABDOMINAL AORTA AND BILATERAL LOWER EXTREMITIES REASON FOR EXAM: Female, 78 years old. PT STATED R/O POOR CIRCULATION, AAA RADIATION DOSAGE (If Supplied By Facility): CTDIvol = ( 8.12 ) mGy, DLP = ( 1285.76 ) mGycm TECHNIQUE: Axial CT angiography multi-detector data acquisition was obtained from the diaphragm to the ankle following intravenous administration of 100ML ISOVUE 370. Axial images and MIP images were reconstructed from the axial data set. Post-processing of the angiographic images was performed, with multiplanar reformation and 3D reconstruction. Individualized dose optimization techniques were used for this CT. TECHNICAL QUALITY: Good COMPARISON: None. Descriptors of Narrowing: None (0%) Mild (< 50%) Moderate (50-70%) Severe (70-90%) Subtotal/Total Occlusion (90-100%) Non-Evaluable (technically non-diagnostic FINDINGS: Calcified hilar nodes on the left. Calcific coronary artery disease. Solid and hollow viscus normal. Moderate scoliosis. Abdominal aorta: Fusiform Infrarenal abdominal aortic aneurysm measures 3.9 x 4.4 cm in AP and transverse dimensions. Scattered plaque along the aorta and its branches. Celiac and superior mesenteric arteries: Normal. Inferior mesenteric artery: No demonstrated narrowing. Right renal artery(arteries): No demonstrated narrowing. Left renal artery(arteries): No demonstrated narrowing. Right common iliac artery: No demonstrated narrowing. Right external iliac artery: No demonstrated narrowing. Right internal iliac artery: No demonstrated narrowing. Left common iliac artery: No demonstrated narrowing. Left external iliac artery: No demonstrated narrowing. Left internal iliac artery: No demonstrated narrowing. RIGHT LOWER EXTREMITY Right common femoral artery: No demonstrated narrowing. Right profundus femoris: No demonstrated narrowing. Right superficial femoral: Diffuse atherosclerosis of mild stenoses. Right popliteal artery: No demonstrated narrowing. Right tibioperoneal trunk: No demonstrated narrowing. Right anterior tibial artery: No demonstrated narrowing. Right posterior tibial artery: No demonstrated narrowing. Right peroneal artery: No demonstrated narrowing. LEFT LOWER EXTREMITY Left common femoral artery: No demonstrated narrowing. Left profundus femoris: No demonstrated narrowing. Left superficial femoral: diffuse atherosclerosis and mild stenoses. Left popliteal artery: Occluded or nearly occluded segment measuring several millimeters in length with reconstitution distally due to geniculate arteries. Left tibioperoneal trunk: No demonstrated narrowing. Left anterior tibial artery: No demonstrated narrowing. Left posterior tibial artery: No demonstrated narrowing. Left peroneal artery: No demonstrated narrowing. IMPRESSION: Occlusion left popliteal artery with reconstitution as above. Fusiform abdominal aortic aneurysm measuring 3.9 x 4.4 cm in transverse dimensions. Electronically Signed: Camron Hall MD at 22:46 EDT , Service support , CT/CTA Abd w/Runoff W/WO Contrast
[2019-05-02 16:21] LABS: CREATININE FINGERSTICK 1.2 mg/dL (0.55-1.02)
== END ==
PROVIDERS: PCP Student in an Organized Health Care Education/Training Program; Referring Provider Surgery Vascular Surgery; Visit Provider Surgery Vascular Surgery
DX: I70.248 Atherosclerosis of native arteries of left leg with ulceration of other part of lower leg (principal); I71.4 Abdominal aortic aneurysm, without rupture
CPT/HCPCS: 75635; Q9967

== ENCOUNTER 2019-05-22 11:00 | Outpatient (RCR) | payer MEDICARE, OTHER, SELFPAY ==
[2019-04-22 00:44] VITALS: BP 154/78; PULSE 89; RESP 16; TEMP 36.8
[2019-04-24 11:22] VITALS: BP 122/54; PULSE 64; RESP 16; TEMP 36.7; BMI 22.7
--- NOTE | 2019-04-24 12:01 | HP.PCM_ITS ---
(1) Traumatic open wound of left lower leg Status: Chronic Current Visit: Yes Qualifiers: Encounter type: subsequent encounter Code(s): S81.802A - Unspecified open wound, left lower leg, initial encounter (2) History of pulmonary embolism Status: Chronic Current Visit: No Code(s): Z86.711 - Personal history of pulmonary embolism (3) On continuous oral anticoagulation Status: Chronic Current Visit: No Code(s): Z79.01 - retirement (current) use of anticoagulants (4) History of tobacco use Status: Chronic Current Visit: No Code(s): Z87.891 - Personal history of nicotine dependence (5) Peripheral artery disease Status: Chronic Current Visit: Yes Code(s): I73.9 - Peripheral vascular disease, unspecified (6) Intermittent claudication of both lower extremities due to atherosclerosis Status: Chronic Current Visit: Yes Code(s): I70.213 - Atherosclerosis of [place] arteries of extremities with intermittent claudication, bilateral legs (7) COPD (chronic obstructive pulmonary disease) Status: Chronic Current Visit: No Code(s): J44.9 - Chronic obstructive pulmonary disease, unspecified (8) History of goiter Status: Chronic Current Visit: No Code(s): Z86.39 - Personal history of other endocrine, nutritional and metabolic disease (9) CHF (congestive heart failure) Status: Chronic Current Visit: No Code(s): I50.9 - Heart failure, unspecified (10) Hypertension Status: Chronic Current Visit: No Code(s): I10 - Essential (primary) hypertension (11) Leg swelling Status: Chronic Current Visit: Yes Code(s): M79.89 - Other specified soft tissue disorders (12) Hypothyroidism Status: Chronic Current Visit: No Code(s): E03.9 - Hypothyroidism, unspecified (13) Chronic renal insufficiency, stage III (moderate) Status: Chronic Current Visit: No Code(s): N18.3 - Chronic kidney disease, stage 3 (moderate) (14) Degenerative arthritis of hip Status: Chronic Current Visit: No Code(s): M16.9 - Osteoarthritis of hip, unspecified (15) 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 Status: Chronic Current Visit: Yes Qualifiers: Laterality: left Qualified Code(s): L97.922 - Non-pressure chronic ulcer of unspecified part of left lower leg with fat layer exposed Code(s): L97.902 - Non-pressure chronic ulcer of unspecified part of unspecified lower leg with fat layer exposed History of Present Illness Date of Service: 04/24/19 Chief Complaint: Chronic, nonhealing, traumatic wound of the left anterior tibial surface History of Wound: This is a 78-year-old female who presented for evaluation and management relative to a chronic, nonhealing, traumatic wound of the left an terior tibial surface. The wound had been present for approximately 2 years. It occurred as a result of banging her left emery against wooden steps. The traumatic event occurred approximately 2 years ago. The wound has failed to heal. She was using a steroid ointment topically. Her primary care physician, Dr. Patton, had recently prescribed a 5-day course of oral antibiotics. The patient, and her daughter at the bedside, could not recall the name of the antibiotic. The patient had been recently evaluated by her primary care physician, and laboratory studies had been obtained. Results were as follows: On February 01, 2019, white blood count was 7.70, hemoglobin 11.8, hematocrit 35.3, platelets 226,000. On January 09, 2019, the following labs were recorded: Glucose 80, sodium 140, potassium 4.2, chloride 103, BUN 28, creatinine 1.07, calcium 7.8. A noninvasive lower extremity arterial study was formed at [facility] on February 08, 2019. Results have been recently obtained, revealing the right lower extremity to be relatively normal, without evidence of arterial occlusive disease. The left lower extremity demonstrates moderate arterial disease with a resting left ankle-brachial index of 0.69. The patient has been evaluated by a vascular surgeon, Dr. Jn Abraham, within the last week, who has arranged for the patient to undergo a battery of diagnostic studies in the near future. The patient relates swelling in her lower extremities. She sleeps in a recliner at night. Her past medical records indicate the presence of intermittent claudication, and the patient is limited in ambulation for reasons she describes as being related to degenerative arthritis of the hip. The patient is a , and lives with her daughter. Patient was a heavy smoker until November,, at which time she was hospitalized with exacerbation of COPD. At that time, she was diagnosed with a pulmonary embolism, and has been on systemic anticoagulation since that time with Xarelto, and told that this would continue for at least 1 year. She has stopped smoking, and has been using a nicotine patch. Past Medical History Past Medical History: Chronic Problems Traumatic open wound of left lower leg (Chronic) History of pulmonary embolism (Chronic) On continuous oral anticoagulation (Chronic) History of tobacco use (Chronic) Peripheral artery disease (Chronic) Intermittent claudication of both lower extremities due to atherosclerosis (Chronic) COPD (chronic obstructive pulmonary disease) (Chronic) History of goiter (Chronic) CHF (congestive heart failure) (Chronic) Hypertension (Chronic) Leg swelling (Chronic) Hypothyroidism (Chronic) Chronic renal insufficiency, stage III (moderate) (Chronic) Degenerative arthritis of hip (Chronic) 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 The patient is a G5, P5, Ab0 Home Medications: Ambulatory Orders Medication Instructions Recorded Acetaminophen 500 mg PO Q4H PRN PRN 02/19/19 Acetaminophen with Codeine 1 ea PO BID 02/19/19 [Acetaminophen-Cod #2 Tablet] Albuterol Inhaler [Ventolin Hfa 2 puff INHALATION Q6H PRN PRN 02/19/19 (SP)] Carvedilol 25 mg PO BID 02/19/19 Cholecalciferol (VIT D3) 400 02/19/19 Fluticasone Furoate [Arnuity 02/19/19 Ellipta] Gabapentin [Neurontin] 400 mg PO 02/19/19 Levothyroxine [Synthroid] 112 mcg PO DAILY 02/19/19 Loratadine 10 mg PO 02/19/19 Mirabegron [Myrbetriq] 25 mg PO 02/19/19 Nicotine [Nicotine Patch] 1 ea TD 02/19/19 Omeprazole [Prilosec] 20 mg PO DAILY 02/19/19 Oxycodone HCl/Acetaminophen PO Q6H PRN PRN 02/19/19 [Percocet 5-325] Pravastatin [Pravachol] 20 mg PO QHS 02/19/19 Rivaroxaban [Xarelto] 20 mg PO DAILY 02/19/19 Ropinirole HCl 0.5 mg PO 02/19/19 Furosemide [Lasix] 40 mg PO DAILY 02/27/19 - Family History Paternal - - The patient's father in his 70s with a history of COPD and skin cancer. The patient's mother in her 70s with a history of stomach cancer. Smoking Status: Former smoker - The patient quit smoking approximately 3 months ago, and using cessation patches since. Tobacco Use: Cigarettes Review of Systems Constitutional: Denies: Chills, Fever, Weight Change Eyes: Denies: Pain, Vision Change HEENT: Denies: Difficulty Hearing, Difficulty Swallowing, Sinus Congestion Cardiovascular: Denies: Chest Pain, Palpitations Respiratory: Denies: Cough, Shortness of Breath Gastrointestinal: Denies: Diarrhea, Nausea, Vomiting Genitourinary: Denies: Dysuria, Hematuria Endocrine: Denies: Heat/ Cold Intolerance, Polydipsia, Polyuria Hematologic/ Lymphatic: Denies: Easy Bruising, Easy Bleeding - Physical Exam Vital Signs Temp Pulse Resp BP 98.1 F 64 16 122/54 H 04/24/19 11:22 04/24/19 11:22 04/24/19 11:22 04/24/19 11:22 General: Alert, Oriented x3, Cooperative, No apparent distress, Well developed, Well nourished HEENT: Atraumatic, PERRLA, EOMI, Normocephalic Oral: Moist Mucosa Neck: No JVD Lungs: Normal air movement Abdomen: Non-Distended Extremities: No clubbing, No cyanosis, No edema, No Calf Tenderness, - - The ulceration of the left lower extremity persists. It is located on the anterolateral surface of the left calf. Dimensions are documented elsewhere. There is a moderate amount of bioburden. There is no sign of infection or cellulitis. The base of the ulceration is generally pink and healthy in appearance. Skin: No rashes Wound Measurements and Assessment WC - Nurse 1 - General Ulcer Measurement Start: 04/24/19 11:21 Freq: Status: Active Protocol: Activity Type Activity Date Activity User E-Sign Co-Sign Detail Recorded Client Recorded Date Recorded By Document 04/24/19 11:22 [facility] [id number] 04/24/19 11:29 [facility] 04/24/19 11:22 Wound Center Nurse 1 [Ulcer Assessment] #1 LLE -Combined with other wound No -Current Size (cm) - Length 1.5 -Current Size (cm) - Width 0.9 -Current Size (cm) - Depth 0.1 -Total Square Cm 1.35 -Photo Taken No -Epithelialization None Present -Tunneling No -Undermining/Tunneling No -Circular Undermining No -Exudate Amt Small -Exudate Type Purulent -Wound Margin Distinct, Outline Attached -Granulation Amt Medium (34-66%) -Granulation Quality Red -Slough/Fibrin Yes -Necrosis Amt Medium (34-66%) -Necrotic Tissue Type Adherent Slough -Texture (Johnna-wound Skin Appearance) Assessed, Scarring -Moisture (Johnna-wound Skin Appearance Assessed,Dry/ ) Scaly -Color (Johnna-wound Skin Appearance) Assessed, Hemosiderin Staining -Temperature (Johnna-wound Skin No Abnormality Appearance) (Pt Warm) -Tenderness on Palpation (Johnna-wound Yes Skin Appearance) -Ulcer Cleansing Rinsed/ Irrigated with Saline -Foul Odor after Cleansing No -Anesthetic Used 5% Lidocaine Gel [Edema Assessment] -Lower Limb Edema Present Yes -Left Calf (cm) 31 -Left Ankle (cm) 18.4 WC - Nurse 2 - General Ulcer CM Notes Start: 04/24/19 11:21 Freq: Status: Active Protocol: Activity Type Activity Date Activity User E-Sign Co-Sign Detail Recorded Client Recorded Date Recorded By Document 04/24/19 11:45 DV [id number] 04/24/19 11:47 DV 04/24/19 11:45 Wound Center Nurse 2 [Procedure/Treatment] #1 LLE -Time 11:46 -Correct Patient Yes -Correct Side, Site, Position Yes -Correct Procedure Yes -Procedure Performed Yes -Type of Procedure Debridement -Clinical Debridement Subcutaneous -Post Debridement Size (cm) - Length 1.6 -Post Debridement Size (cm) - Width 1.0 -Post Debridement Size (cm) - Depth 0.1 -Total Square Cm 1.60 -Wound/Ulcer Outcome Not Healed -Ulcer Cleansing Rinsed/ Irrigated with Saline -Foul Odor after Cleansing No -Bioengineered Tissue No -Bleeding Controlled with Pressure -Offloading No -Treatment Response Procedure Tolerated Well [See Physician Procedure note for Specifics] Pain Scale: 0-10 Numeric [Pain] -Is Patient Pain Free? Yes Neurological: Cranial nerves II-XII grossly intact, Neuro grossly intact Psych/Mental Status: Normal Affect, Appropriate, Alert and oriented to time, place, person, mood and affect Debridement Note Post-Debridement Measurements/Treatment WC - Nurse 2 - General Ulcer CM Notes Start: 04/24/19 11:21 Freq: Status: Active Protocol: Activity Type Activity Date Activity User E-Sign Co-Sign Detail Recorded Client Recorded Date Recorded By Document 04/24/19 11:45 DV [id number] 04/24/19 11:47 DV 04/24/19 11:45 Wound Center Nurse 2 #1 LLE -Time 11:46 -Correct Patient Yes -Correct Side, Site, Position Yes -Correct Procedure Yes -Procedure Performed Yes -Type of Procedure Debridement -Clinical Debridement Subcutaneous -Post Debridement Size (cm) - Length 1.6 -Post Debridement Size (cm) - Width 1.0 -Post Debridement Size (cm) - Depth 0.1 -Total Square Cm 1.60 -Wound/Ulcer Outcome Not Healed -Ulcer Cleansing Rinsed/ Irrigated with Saline -Foul Odor after Cleansing No -Bioengineered Tissue No -Bleeding Controlled with Pressure -Offloading No -Treatment Response Procedure Tolerated Well Pain Scale: 0-10 Numeric Is Patient Pain Free? Yes Laterality: Left - Anterolateral calf Type of Debridement: Excisional debridement Anesthesia Used: 5% Lidocaine Gel Depth: Down to and including healthy tissue, in the subcutaneous layer Percentage of wound debrided: 100 Instrument Used: 5mm curette Tissue Removed: Bioburden and nonviable tissue Severity: Fat Layer Exposed Amount of bleeding with debridement: Mild Bleeding Controlled with: Compression and gauze Patient tolerated procedure well Assessment/Plan Active Problems Traumatic open wound of left lower leg (Chronic) Peripheral artery disease (Chronic) Intermittent claudication of both lower extremities due to atherosclerosis (Chronic) Leg swelling (Chronic) 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 By history, the patient has multiple medical problems, which have been listed above. Based upon history, and past medical records, it appears as though the patient suffers from intermittent claudication secondary to peripheral arterial occlusive disease. We have received medical records from [facility], which have been reviewed, and demonstrate moderate arterial occlusive disease in the left lower extremity, with a resting left ankle-brachial index of 0.69. Her EKG is noted to be abnormal, suspicious for anterior septal ischemia. Transthoracic echocardiography reveals mildly reduced systolic function. Mild hypokinesis of the anterior, anterolateral, and inferolateral myocardium is noted. The patient is under the care of a vascular surgeon, Dr. Jn Abraham, who has arranged for a battery of diagnostic vascular studies. The patient underwent several studies recently, and additional vascular studies are yet to be performed. The patient has been found to have an aortic aneurysm, though not of sufficient size to warrant intervention at this time. She has additional appointments with Dr. Abraham in the very near future. Currently, it is anticipated that she may be a candidate for left lower extremity revascularization, which would be expected to accelerate the healing process related to her current ulceration. It is known that her noninvasive lower extremity arterial study reveals moderate to severe arterial occlusive disease in the left lower extremity, with monophasic waveforms at ankle level, and diminished ankle-brachial and digital brachial indices in the left lower extremity. It is noted that the patient has pre-existing comorbid medical conditions, with a recent history of pulmonary embolism for which she is on systemic anticoagulation therapy with Xarelto. Patient has had some recent laboratory studies, and others have been recently obtained on 02/19/19. Results are as follows: Sodium 140, potassium 3.7, chloride 106, BUN 12, creatinine 0.97, glucose 94, calcium 9.0, AST 16, ALT 21, total protein 7.4, albumin 3.6, serum prealbumin 25.2. Recent wound cultures have been obtained, revealing very rare growth of staph epidermidis, which may well be contaminant. Plan: Patient has been encouraged to optimize her nutritional intake. She has been encouraged to elevate her lower extremities as much as possible, and to refrain from sleeping in a recliner at night. Activity has been encouraged. The patient has recently obtained compression stockings, though the degree of compression is uncertain. She has discontinued smoking. We are to implement the use of MediHoney Gel and Adaptic, applied to the ulceration on a daily basis. Patient is to return in 1 week for reevaluation. Consideration is to be given to the use of a skin graft substitute such as EpiFix in the future. H owever, we await Dr. Abraham's evaluation and final recommendations regarding the possible role of left lower extremity revascularization. Swab cultures have been obtained of the patient's left lower extremity wound, and results are suspected to be skin contaminant. It is noted that the patient underwent a cardiac catheterization several weeks ago where it was found that there was a 30% blockage according to the patient's daughter. The patient was placed on medication, though no procedural intervention was felt warranted. We will await the recommendations of Dr. Abraham, and determine whether revascularization of the left lower extremity is warranted. Patient is not currently a smoker, and has been counseled to continue her efforts to stop smoking. Influenza vaccine was not administered today. Patient stands 5 feet 5 inches tall. She weighs 137 pounds. Her BMI is 22.8, which is normal.
[2019-05-15 11:40] VITALS: BP 136/60; PULSE 64; RESP 18; TEMP 36.9; BMI 22.7
--- NOTE | 2019-05-15 12:46 | HP.PCM_ITS ---
(1) Traumatic open wound of left lower leg Status: Chronic Current Visit: Yes Qualifiers: Encounter type: subsequent encounter Code(s): S81.802A - Unspecified open wound, left lower leg, initial encounter (2) History of pulmonary embolism Status: Chronic Current Visit: No Code(s): Z86.711 - Personal history of pulmonary embolism (3) On continuous oral anticoagulation Status: Chronic Current Visit: No Code(s): Z79.01 - penitentiary (current) use of anticoagulants (4) History of tobacco use Status: Chronic Current Visit: No Code(s): Z87.891 - Personal history of nicotine dependence (5) Peripheral artery disease Status: Chronic Current Visit: Yes Code(s): I73.9 - Peripheral vascular disease, unspecified (6) Intermittent claudication of both lower extremities due to atherosclerosis Status: Chronic Current Visit: Yes Code(s): I70.213 - Atherosclerosis of [place] arteries of extremities with intermittent claudication, bilateral legs (7) COPD (chronic obstructive pulmonary disease) Status: Chronic Current Visit: No Code(s): J44.9 - Chronic obstructive pulmonary disease, unspecified (8) History of goiter Status: Chronic Current Visit: No Code(s): Z86.39 - Personal history of other endocrine, nutritional and metabolic disease (9) CHF (congestive heart failure) Status: Chronic Current Visit: No Code(s): I50.9 - Heart failure, unspecified (10) Hypertension Status: Chronic Current Visit: No Code(s): I10 - Essential (primary) hypertension (11) Leg swelling Status: Chronic Current Visit: Yes Code(s): M79.89 - Other specified soft tissue disorders (12) Hypothyroidism Status: Chronic Current Visit: No Code(s): E03.9 - Hypothyroidism, unspecified (13) Chronic renal insufficiency, stage III (moderate) Status: Chronic Current Visit: No Code(s): N18.3 - Chronic kidney disease, stage 3 (moderate) (14) Degenerative arthritis of hip Status: Chronic Current Visit: No Code(s): M16.9 - Osteoarthritis of hip, unspecified (15) 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 Status: Chronic Current Visit: Yes Qualifiers: Laterality: left Qualified Code(s): L97.922 - Non-pressure chronic ulcer of unspecified part of left lower leg with fat layer exposed Code(s): L97.902 - Non-pressure chronic ulcer of unspecified part of unspecified lower leg with fat layer exposed History of Present Illness Date of Service: 05/15/19 Chief Complaint: Chronic, nonhealing, traumatic wound of the left anterior tibial surface History of Wound: This is a 78-year-old female who presented for evaluation and management relative to a chronic, nonhealing, traumatic wound of the left an terior tibial surface. The wound had been present for approximately 2 years. It occurred as a result of banging her left emery against wooden steps. The traumatic event occurred approximately 2 years ago. The wound has failed to heal. She was using a steroid ointment topically. Her primary care physician, Dr. Patton, had recently prescribed a 5-day course of oral antibiotics. The patient, and her daughter at the bedside, could not recall the name of the antibiotic. The patient had been recently evaluated by her primary care physician, and laboratory studies had been obtained. Results were as follows: On February 01, 2019, white blood count was 7.70, hemoglobin 11.8, hematocrit 35.3, platelets 226,000. On January 09, 2019, the following labs were recorded: Glucose 80, sodium 140, potassium 4.2, chloride 103, BUN 28, creatinine 1.07, calcium 7.8. A noninvasive lower extremity arterial study was formed at [facility] on February 08, 2019. Results have been recently obtained, revealing the right lower extremity to be relatively normal, without evidence of arterial occlusive disease. The left lower extremity demonstrates moderate arterial disease with a resting left ankle-brachial index of 0.69. The patient has been evaluated by a vascular surgeon, Dr. Jn Abraham, within the last week, who has arranged for the patient to undergo a battery of diagnostic studies in the near future. The patient relates swelling in her lower extremities. She sleeps in a recliner at night. Her past medical records indicate the presence of intermittent claudication, and the patient is limited in ambulation for reasons she describes as being related to degenerative arthritis of the hip. The patient is a , and lives with her daughter. Patient was a heavy smoker until November,, at which time she was hospitalized with exacerbation of COPD. At that time, she was diagnosed with a pulmonary embolism, and has been on systemic anticoagulation since that time with Xarelto, and told that this would continue for at least 1 year. She has stopped smoking, and has been using a nicotine patch. Past Medical History Past Medical History: Chronic Problems Traumatic open wound of left lower leg (Chronic) History of pulmonary embolism (Chronic) On continuous oral anticoagulation (Chronic) History of tobacco use (Chronic) Peripheral artery disease (Chronic) Intermittent claudication of both lower extremities due to atherosclerosis (Chronic) COPD (chronic obstructive pulmonary disease) (Chronic) History of goiter (Chronic) CHF (congestive heart failure) (Chronic) Hypertension (Chronic) Leg swelling (Chronic) Hypothyroidism (Chronic) Chronic renal insufficiency, stage III (moderate) (Chronic) Degenerative arthritis of hip (Chronic) 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 The patient is a G5, P5, Ab0 Home Medications: Ambulatory Orders Medication Instructions Recorded Acetaminophen 500 mg PO Q4H PRN PRN 02/19/19 Acetaminophen with Codeine 1 ea PO BID 02/19/19 [Acetaminophen-Cod #2 Tablet] Albuterol Inhaler [Ventolin Hfa 2 puff INHALATION Q6H PRN PRN 02/19/19 (SP)] Carvedilol 25 mg PO BID 02/19/19 Cholecalciferol (VIT D3) 400 02/19/19 Fluticasone Furoate [Arnuity 02/19/19 Ellipta] Gabapentin [Neurontin] 400 mg PO 02/19/19 Levothyroxine [Synthroid] 112 mcg PO DAILY 02/19/19 Loratadine 10 mg PO 02/19/19 Mirabegron [Myrbetriq] 25 mg PO 02/19/19 Nicotine [Nicotine Patch] 1 ea TD 02/19/19 Omeprazole [Prilosec] 20 mg PO DAILY 02/19/19 Oxycodone HCl/Acetaminophen PO Q6H PRN PRN 02/19/19 [Percocet 5-325] Pravastatin [Pravachol] 20 mg PO QHS 02/19/19 Rivaroxaban [Xarelto] 20 mg PO DAILY 02/19/19 Ropinirole HCl 0.5 mg PO 02/19/19 Furosemide [Lasix] 40 mg PO DAILY 02/27/19 - Family History Paternal - - The patient's father in his 70s with a history of COPD and skin cancer. The patient's mother in her 70s with a history of stomach cancer. Smoking Status: Former smoker - The patient quit smoking approximately 3 months ago, and using cessation patches since. Tobacco Use: Cigarettes Review of Systems Constitutional: Denies: Chills, Fever, Weight Change Eyes: Denies: Pain, Vision Change HEENT: Denies: Difficulty Hearing, Difficulty Swallowing, Sinus Congestion Cardiovascular: Denies: Chest Pain, Palpitations Respiratory: Denies: Cough, Shortness of Breath Gastrointestinal: Denies: Diarrhea, Nausea, Vomiting Genitourinary: Denies: Dysuria, Hematuria Endocrine: Denies: Heat/ Cold Intolerance, Polydipsia, Polyuria Hematologic/ Lymphatic: Denies: Easy Bruising, Easy Bleeding - Physical Exam Vital Signs Temp Pulse Resp BP 98.5 F 64 18 136/60 H 05/15/19 11:40 05/15/19 11:40 05/15/19 11:40 05/15/19 11:40 General: Alert, Oriented x3, Cooperative, No apparent distress, Well developed, Well nourished HEENT: Atraumatic, PERRLA, EOMI, Normocephalic Oral: Moist Mucosa Neck: No JVD Lungs: Normal air movement Abdomen: Non-Distended Extremities: No clubbing, No cyanosis, No edema, No Calf Tenderness, - - The patient's ulceration on the left lower extremity persists. It is located on the left anterior tibial surface. There is a mild amount of bioburden. There is no sign of infection or cellulitis. Dimensions are documented elsewhere. Multiple varicose veins are noted throughout the left lower extremity, primarily small in size. Skin: No rashes Wound Measurements and Assessment - Nurse 1 - General Ulcer Measurement Start: 04/24/19 11:21 Freq: Status: Active Protocol: Activity Type Activity Date Activity User E-Sign Co-Sign Detail Recorded Client Recorded Date Recorded By Document 05/15/19 11:40 SANDI [id number] 05/15/19 11:45 SANDI 05/15/19 11:40 Wound Center Nurse 1 [Ulcer Assessment] #1 LLE -Combined with other wound No -Current Size (cm) - Length 0.6 -Current Size (cm) - Width 0.7 -Current Size (cm) - Depth 0.1 -Total Square Cm 0.42 -Photo Taken Yes -Epithelialization Large 67-100% -Tunneling No -Undermining/Tunneling No -Circular Undermining No -Exudate Amt Small -Exudate Type Serosanguineous -Wound Margin Flat & Intact -Granulation Amt Large (67-100%) -Granulation Quality Red -Slough/Fibrin Yes -Necrosis Amt Small (1-33%) -Necrotic Tissue Type Adherent Slough -Structure Exposed N/A -Texture (Johnna-wound Skin Appearance) Assessed, Localized Edema ,Scarring -Moisture (Johnna-wound Skin Appearance Assessed,Dry/ ) Scaly -Color (Johnna-wound Skin Appearance) Assessed -Temperature (Johnna-wound Skin No Abnormality Appearance) (Pt Warm) -Tenderness on Palpation (Johnna-wound No Skin Appearance) -Ulcer Cleansing Rinsed/ Irrigated with Saline -Foul Odor after Cleansing No -Anesthetic Used 4% Lidocaine Solution [Edema Assessment] -Lower Limb Edema Present Yes -Left Calf (cm) 31.5 -Left Ankle (cm) 18.5 WC - Nurse 2 - General Ulcer CM Notes Start: 04/24/19 11:21 Freq: Status: Active Protocol: Activity Type Activity Date Activity User E-Sign Co-Sign Detail Recorded Client Recorded Date Recorded By Document 05/15/19 11:52 DV [id number] 05/15/19 12:00 DV 05/15/19 11:52 Wound Center Nurse 2 [Procedure/Treatment] #1 LLE -Time 11:53 -Correct Patient Yes -Correct Side, Site, Position Yes -Correct Procedure Yes -Procedure Performed Yes -Type of Procedure Debridement -Clinical Debridement Subcutaneous -Post Debridement Size (cm) - Length 1.0 -Post Debridement Size (cm) - Width 1.2 -Post Debridement Size (cm) - Depth 0.1 -Total Square Cm 1.20 -Wound/Ulcer Outcome Not Healed -Ulcer Cleansing Rinsed/ Irrigated with Saline -Foul Odor after Cleansing No -Bioengineered Tissue Yes -Type of bioengineered Tissue EPIFIX -Expiration Date 01/22/24 -Product Lot Number [id number] -Percent Used 100 -Saline Lot Number HYDRO -Bleeding Controlled with Pressure -Offloading No -Treatment Response Procedure Tolerated Well [See Physician Procedure note for Specifics] Pain Scale: 0-10 Numeric [Pain] -Is Patient Pain Free? Yes Neurological: Cranial nerves II-XII grossly intact, Neuro grossly intact Psych/Mental Status: Normal Affect, Appropriate, Alert and oriented to time, place, person, mood and affect Debridement Note Post-Debridement Measurements/Treatment WC - Nurse 2 - General Ulcer CM Notes Start: 04/24/19 11:21 Freq: Status: Active Protocol: Activity Type Activity Date Activity User E-Sign Co-Sign Detail Recorded Client Recorded Date Recorded By Document 04/24/19 11:45 DV [id number] 04/24/19 11:47 DV Document 05/15/19 11:52 DV [id number] 05/15/19 12:00 DV 04/24/19 05/15/19 11:45 11:52 Wound Center Nurse 2 #1 LLE -Time 11:46 11:53 -Correct Patient Yes Yes -Correct Side, Site, Position Yes Yes -Correct Procedure Yes Yes -Procedure Performed Yes Yes -Type of Procedure Debridement Debridement -Clinical Debridement Subcutaneous Subcutaneous -Post Debridement Size (cm) - Length 1.6 1.0 -Post Debridement Size (cm) - Width 1.0 1.2 -Post Debridement Size (cm) - Depth 0.1 0.1 -Total Square Cm 1.60 1.20 -Wound/Ulcer Outcome Not Healed Not Healed -Ulcer Cleansing Rinsed/ Rinsed/ Irrigated with Irrigated with Saline Saline -Foul Odor after Cleansing No No -Bioengineered Tissue No Yes -Type of bioengineered Tissue EPIFIX -Expiration Date 01/22/24 -Product Lot Number [id number] -Percent Used 100 -Saline Lot Number HYDRO -Bleeding Controlled with Pressure Pressure -Offloading No No -Treatment Response Procedure Procedure Tolerated Well Tolerated Well Pain Scale: 0-10 Numeric Is Patient Pain Free? Yes Yes Laterality: Left - Anterior tibial surface Type of Debridement: Excisional debridement Anesthesia Used: 5% Lidocaine Gel Depth: Down to and including healthy tissue, in the subcutaneous layer Percentage of wound debrided: 100 Instrument Used: 5mm curette Tissue Removed: Bioburden Severity: Fat Layer Exposed Amount of bleeding with debridement: Mild Bleeding Controlled with: Compression and gauze Patient tolerated procedure well A routine excisional debridement was performed, which was well-tolerated by the patient. Thereafter, the decision was made to proceed with the application of an allograft. An 18 mm EpiFix allograft disc was selected. It was removed from its sterile packaging, and placed topically on the ulceration. It was placed in the appropriate orientation. Adaptic Touch was then applied, and secured using Steri-Strips. The procedure was well-tolerated. 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 By history, the patient has multiple medical problems, which have been listed above. Based upon history, and past medical records, it appears as though the patient suffers from intermittent claudication secondary to peripheral arterial occlusive disease. We have received medical records from [facility], which have been reviewed, and demonstrate moderate arterial occlusive disease in the left lower extremity, with a resting left ankle-brachial index of 0.69. Her EKG is noted to be abnormal, suspicious for anterior septal ischemia. Transthoracic echocardiography reveals mildly reduced systolic function. Mild hypokinesis of the anterior, anterolateral, and inferolateral myocardium is noted. The patient is known to suffer from moderate to severe arterial occlusive disease in the left lower extremity, and is under the care of a vascular surgeon, Dr. Jn Abraham, who has arranged for a battery of diagnostic vascular studies. The patient underwent several studies recently, and has recently been re-evaluated by Dr. Abraham, who has indicated that he intends to forego efforts at revascularization at present, scheduling the patient for a follow-up visit in late May,. The patient has also been found to have an aortic aneurysm, though not of sufficient size to warrant intervention at this time. It is noted that the patient has pre-existing comorbid medical conditions, with a recent history of pulmonary embolism for which she is on systemic anticoagulation therapy with Xarelto. Patient has had some recent laboratory studies, and others have been recently obtained on 02/19/19. Results are as follows: Sodium 140, potassium 3.7, chloride 106, BUN 12, creatinine 0.97, glucose 94, calcium 9.0, AST 16, ALT 21, total protein 7.4, albumin 3.6, serum prealbumin 25.2. Recent wound cultures have been obtained, revealing very rare growth of staph epidermidis, which is felt to be a contaminant. Plan: Patient has been encouraged to optimize her nutritional intake. She has been encouraged to elevate her lower extremities as much as possible, and to refrain from sleeping in a recliner at night. Activity has been encouraged. The patient has recently obtained compression stockings, though the degree of compression is uncertain. She has discontinued smoking. We have applied the first allograft today, using EpiFix 18 mm disc. This to be left in place, undisturbed, until the patient returns in 1 week for reevaluation. It is noted that the patient underwent a cardiac catheterization several weeks ago where it was found that there was a 30% blockage according to the patient's daughter. The patient was placed on medication, though no procedural intervention was felt warranted. We have been made aware of Dr. Abraham's intentions to forego the left lower extremity revascularization, with intent to reevaluate the patient in late May 2019. Patient is not currently a smoker, and has been counseled to continue her efforts to stop smoking. Influenza vaccine was not administered today. Patient stands 5 feet 5 inches tall. She weighs 137 pounds. Her BMI is 22.8, which is normal.
[2019-05-22 11:22] VITALS: BP 130/58; PULSE 58; RESP 18; TEMP 36.8; BMI 22.7
--- NOTE | 2019-05-22 11:43 | PCM.WC.HP ---
(1) Traumatic open wound of left lower leg Status: Chronic Current Visit: Yes Qualifiers: Encounter type: subsequent encounter Code(s): S81.802A - Unspecified open wound, left lower leg, initial encounter (2) History of pulmonary embolism Status: Chronic Current Visit: No Code(s): Z86.711 - Personal history of pulmonary embolism (3) On continuous oral anticoagulation Status: Chronic Current Visit: No Code(s): Z79.01 - USP (current) use of anticoagulants (4) History of tobacco use Status: Chronic Current Visit: No Code(s): Z87.891 - Personal history of nicotine dependence (5) Peripheral artery disease Status: Chronic Current Visit: Yes Code(s): I73.9 - Peripheral vascular disease, unspecified (6) Intermittent claudication of both lower extremities due to atherosclerosis Status: Chronic Current Visit: Yes Code(s): I70.213 - Atherosclerosis of [place] arteries of extremities with intermittent claudication, bilateral legs (7) COPD (chronic obstructive pulmonary disease) Status: Chronic Current Visit: No Code(s): J44.9 - Chronic obstructive pulmonary disease, unspecified (8) History of goiter Status: Chronic Current Visit: No Code(s): Z86.39 - Personal history of other endocrine, nutritional and metabolic disease (9) CHF (congestive heart failure) Status: Chronic Current Visit: No Code(s): I50.9 - Heart failure, unspecified (10) Hypertension Status: Chronic Current Visit: No Code(s): I10 - Essential (primary) hypertension (11) Leg swelling Status: Chronic Current Visit: Yes Code(s): M79.89 - Other specified soft tissue disorders (12) Hypothyroidism Status: Chronic Current Visit: No Code(s): E03.9 - Hypothyroidism, unspecified (13) Chronic renal insufficiency, stage III (moderate) Status: Chronic Current Visit: No Code(s): N18.3 - Chronic kidney disease, stage 3 (moderate) (14) Degenerative arthritis of hip Status: Chronic Current Visit: No Code(s): M16.9 - Osteoarthritis of hip, unspecified (15) 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 Status: Chronic Current Visit: Yes Qualifiers: Laterality: left Qualified Code(s): L97.922 - Non-pressure chronic ulcer of unspecified part of left lower leg with fat layer exposed Code(s): L97.902 - Non-pressure chronic ulcer of unspecified part of unspecified lower leg with fat layer exposed History of Present Illness Date of Service: 05/22/19 Chief Complaint: Chronic, nonhealing, traumatic wound of the left anterior tibial surface History of Wound: This is a 78-year-old female who presented for evaluation and management relative to a chronic, nonhealing, traumatic wound of the left anterior tibial surface. The wound had been present for approximately 2 years. It occurred as a result of banging her left emery against wooden steps. The traumatic event occurred approximately 2 years ago. The wound has failed to heal. She was using a steroid ointment topically. Her primary care physician, Dr. Patton, had recently prescribed a 5-day course of oral antibiotics. The patient, and her daughter at the bedside, could not recall the name of the antibiotic. The patient had been recently evaluated by her primary care physician, and laboratory studies had been obtained. Results were as follows: On February 01, 2019, white blood count was 7.70, hemoglobin 11.8, hematocrit 35.3, platelets 226,000. On January 09, 2019, the following labs were recorded: Glucose 80, sodium 140, potassium 4.2, chloride 103, BUN 28, creatinine 1.07, calcium 7.8. A noninvasive lower extremity arterial study was formed at [facility] on February 08, 2019. Results have been recently obtained, revealing the right lower extremity to be relatively normal, without evidence of arterial occlusive disease. The left lower extremity demonstrates moderate arterial disease with a resting left ankle-brachial index of 0.69. The patient has been evaluated by a vascular surgeon, Dr. Jn Abraham, within the last week, who has arranged for the patient to undergo a battery of diagnostic studies in the near future. The patient relates swelling in her lower extremities. She sleeps in a recliner at night. Her past medical records indicate the presence of intermittent claudication, and the patient is limited in ambulation for reasons she describes as being related to degenerative arthritis of the hip. The patient is a , and lives with her daughter. Patient was a heavy smoker until November,, at which time she was hospitalized with exacerbation of COPD. At that time, she was diagnosed with a pulmonary embolism, and has been on systemic anticoagulation since that time with Xarelto, and told that this would continue for at least 1 year. She has stopped smoking, and has been using a nicotine patch. Past Medical History Past Medical History: Chronic Problems Traumatic open wound of left lower leg (Chronic) History of pulmonary embolism (Chronic) On continuous oral anticoagulation (Chronic) History of tobacco use (Chronic) Peripheral artery disease (Chronic) Intermittent claudication of both lower extremities due to atherosclerosis (Chronic) COPD (chronic obstructive pulmonary disease) (Chronic) History of goiter (Chronic) CHF (congestive heart failure) (Chronic) Hypertension (Chronic) Leg swelling (Chronic) Hypothyroidism (Chronic) Chronic renal insufficiency, stage III (moderate) (Chronic) Degenerative arthritis of hip (Chronic) 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 The patient is a G5, P5, Ab0 Home Medications: Ambulatory Orders Medication Instructions Recorded Acetaminophen 500 mg PO Q4H PRN PRN 02/19/19 Acetaminophen with Codeine 1 ea PO BID 02/19/19 [Acetaminophen-Cod #2 Tablet] Albuterol Inhaler [Ventolin Hfa 2 puff INHALATION Q6H PRN PRN 02/19/19 (SP)] Carvedilol 25 mg PO BID 02/19/19 Cholecalciferol (VIT D3) 400 02/19/19 Fluticasone Furoate [Arnuity 02/19/19 Ellipta] Gabapentin [Neurontin] 400 mg PO 02/19/19 Levothyroxine [Synthroid] 112 mcg PO DAILY 02/19/19 Loratadine 10 mg PO 02/19/19 Mirabegron [Myrbetriq] 25 mg PO 02/19/19 Nicotine [Nicotine Patch] 1 ea TD 02/19/19 Omeprazole [Prilosec] 20 mg PO DAILY 02/19/19 Oxycodone HCl/Acetaminophen PO Q6H PRN PRN 02/19/19 [Percocet 5-325] Pravastatin [Pravachol] 20 mg PO QHS 02/19/19 Rivaroxaban [Xarelto] 20 mg PO DAILY 02/19/19 Ropinirole HCl 0.5 mg PO 02/19/19 Furosemide [Lasix] 40 mg PO DAILY 02/27/19 - Family History Paternal - - The patient's father in his 70s with a history of COPD and skin cancer. The patient's mother in her 70s with a history of stomach cancer. Smoking Status: Former smoker - The patient quit smoking approximately 3 months ago, and using cessation patches since. Tobacco Use: Cigarettes Review of Systems Constitutional: Denies: Chills, Fever, Weight Change Eyes: Denies: Pain, Vision Change HEENT: Denies: Difficulty Hearing, Difficulty Swallowing, Sinus Congestion Cardiovascular: Denies: Chest Pain, Palpitations Respiratory: Denies: Cough, Shortness of Breath Gastrointestinal: Denies: Diarrhea, Nausea, Vomiting Genitourinary: Denies: Dysuria, Hematuria Endocrine: Denies: Heat/ Cold Intolerance, Polydipsia, Polyuria Hematologic/ Lymphatic: Denies: Easy Bruising, Easy Bleeding - Physical Exam Vital Signs Temp Pulse Resp BP 98.2 F 58 L 18 130/58 H 05/22/19 11:22 05/22/19 11:22 05/22/19 11:22 05/22/19 11:22 General: Alert, Oriented x3, Cooperative, No apparent distress, Well developed, Well nourished HEENT: Atraumatic, PERRLA, EOMI, Normocephalic Oral: Moist Mucosa Neck: No JVD Lungs: Normal air movement Abdomen: Non-Distended Extremities: No clubbing, No cyanosis, No edema, No Calf Tenderness, - - There is no swelling or edema in the patient's left lower extremity. The ulceration on the left anterior tibial surface is now markedly improved. Following the first application of an allograft 1 week ago, there has been significant epithelialization, and only a small remaining open ulceration persists. Dimensions are documented elsewhere. There is no sign of infection or cellulitis. Skin: No rashes Wound Measurements and Assessment WC - Nurse 1 - General Ulcer Measurement Start: 04/24/19 11:21 Freq: Status: Active Protocol: Activity Type Activity Date Activity User E-Sign Co-Sign Detail Recorded Client Recorded Date Recorded By Document 05/22/19 11:22 DV [id number] 05/22/19 11:28 DV 05/22/19 11:22 Wound Center Nurse 1 [Ulcer Assessment] #1 LLE -Current Size (cm) - Length 0.1 -Current Size (cm) - Width 0.1 -Current Size (cm) - Depth 0.1 -Total Square Cm 0.01 -Photo Taken No -Exudate Amt None Present -Wound Margin Thickened -Granulation Amt None Present (0 %) -Necrosis Amt Small (1-33%) -Necrotic Tissue Type Adherent Slough -Structure Exposed N/A -Texture (Johnna-wound Skin Appearance) Scarring -Moisture (Johnna-wound Skin Appearance Dry/Scaly ) -Color (Johnna-wound Skin Appearance) Rubor -Temperature (Jhonna-wound Skin No Abnormality Appearance) (Pt Warm) -Tenderness on Palpation (Johnna-wound No Skin Appearance) -Ulcer Cleansing Wound Cleanser -Foul Odor after Cleansing No -Anesthetic Used 4% Lidocaine Solution WC - Nurse 2 - General Ulcer CM Notes Start: 04/24/19 11:21 Freq: Status: Active Protocol: Activity Type Activity Date Activity User E-Sign Co-Sign Detail Recorded Client Recorded Date Recorded By Document 05/22/19 11:33 DV [id number] 05/22/19 11:39 DV 05/22/19 11:33 Wound Center Nurse 2 [Procedure/Treatment] -Time 11:33 -Correct Patient Yes -Correct Side, Site, Position Yes -Correct Procedure Yes -Procedure Performed Yes -Type of Procedure Debridement -Clinical Debridement Subcutaneous -Post Debridement Size (cm) - Length 0.2 -Post Debridement Size (cm) - Width 0.2 -Post Debridement Size (cm) - Depth 0.1 -Total Square Cm 0.04 -Wound/Ulcer Outcome Not Healed -Ulcer Cleansing Rinsed/ Irrigated with Saline -Foul Odor after Cleansing No -Bioengineered Tissue Yes -Type of bioengineered Tissue EPIFIX -Expiration Date 01/22/24 -Product Lot Number [id number] -Percent Used 100 -Saline Lot Number HYDRO -Topical Lidocaine (%) 4 -Bleeding Controlled with Pressure -Other EXP: 12/11 LOT # [id number] -Offloading No -Treatment Response Procedure Tolerated Well [See Physician Procedure note for Specifics] Pain Scale: 0-10 Numeric [Pain] -Is Patient Pain Free? Yes Neurological: Cranial nerves II-XII grossly intact, Neuro grossly intact Psych/Mental Status: Normal Affect, Appropriate, Alert and oriented to time, place, person, mood and affect Debridement Note Post-Debridement Measurements/Treatment WC - Nurse 2 - General Ulcer CM Notes Start: 04/24/19 11:21 Freq: Status: Active Protocol: Activity Type Activity Date Activity User E-Sign Co-Sign Detail Recorded Client Recorded Date Recorded By Document 04/24/19 11:45 DV [id number] 04/24/19 11:47 DV Document 05/15/19 11:52 DV [id number] 05/15/19 12:00 DV Document 05/22/19 11:33 DV [id number] 05/22/19 11:39 DV 04/24/19 05/15/19 05/22/19 11:45 11:52 11:33 Wound Center Nurse 2 #1 LLE -Time 11:46 11:53 11:33 -Correct Patient Yes Yes Yes -Correct Side, Site, Position Yes Yes Yes -Correct Procedure Yes Yes Yes -Procedure Performed Yes Yes Yes -Type of Procedure Debridement Debridement Debridement -Clinical Debridement Subcutaneous Subcutaneous Subcutaneous -Post Debridement Size (cm) - Length 1.6 1.0 0.2 -Post Debridement Size (cm) - Width 1.0 1.2 0.2 -Post Debridement Size (cm) - Depth 0.1 0.1 0.1 -Total Square Cm 1.60 1.20 0.04 -Wound/Ulcer Outcome Not Healed Not Healed Not Healed -Ulcer Cleansing Rinsed/ Rinsed/ Rinsed/ Irrigated with Irrigated with Irrigated with Saline Saline Saline -Foul Odor after Cleansing No No No -Bioengineered Tissue No Yes Yes -Type of bioengineered Tissue EPIFIX EPIFIX -Expiration Date 01/22/24 01/22/24 -Product Lot Number [id number] -Percent Used 100 100 -Saline Lot Number HYDRO HYDRO -Topical Lidocaine (%) 4 -Bleeding Controlled with Pressure Pressure Pressure -Other EXP: 12/11 LOT # [id number] -Offloading No No No -Treatment Response Procedure Procedure Procedure Tolerated Well Tolerated Well Tolerated Well Pain Scale: 0-10 Numeric Is Patient Pain Free? Yes Yes Yes Laterality: Left - Anterior tibial surface Type of Debridement: Excisional debridement Anesthesia Used: 5% Lidocaine Gel Depth: Down to and including healthy tissue, in the subcutaneous layer Percentage of wound debrided: 100 Instrument Used: 5mm curette Tissue Removed: Bioburden and old, remaining allograft material Severity: Fat Layer Exposed Amount of bleeding with debridement: Mild Bleeding Controlled with: Compression and gauze Patient tolerated procedure well Following a routine excisional debridement, an allograft was placed. An EpiFix 18 mm disc was placed. It was removed from its sterile packaging, and applied topically in the appropriate orientation. Adaptic Touch was then placed, and anchored using Steri-Strips. Collagen hydrogel was placed over the allograft. A dry sterile gauze dressing was then applied. The patient tolerated the procedure well. 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 By history, the patient has multiple medical problems, which have been listed above. Based upon history, and past medical records, it appears as though the patient suffers from intermittent claudication secondary to peripheral arterial occlusive disease. We have received medical records from [facility], which have been reviewed, and demonstrate moderate arterial occlusive disease in the left lower extremity, with a resting left ankle-brachial index of 0.69. Her EKG is noted to be abnormal, suspicious for anterior septal ischemia. Transthoracic echocardiography reveals mildly reduced systolic function. Mild hypokinesis of the anterior, anterolateral, and inferolateral myocardium is noted. The patient is known to suffer from moderate to severe arterial occlusive disease in the left lower extremity, and is under the care of a vascular surgeon, Dr. Jn Abraham, who has arranged for a battery of diagnostic vascular studies. The patient underwent several studies recently, and has recently been re-evaluated by Dr. Abraham, who has indicated that he intends to forego efforts at revascularization at present, scheduling the patient for a follow-up visit in late May,. The patient has also been found to have an aortic aneurysm, though not of sufficient size to warrant intervention at this time. It is noted that the patient has pre-existing comorbid medical conditions, with a recent history of pulmonary embolism for which she is on systemic anticoagulation therapy with Xarelto. Patient has had some recent laboratory studies, and others have been recently obtained on 02/19/19. Results are as follows: Sodium 140, potassium 3.7, chloride 106, BUN 12, creatinine 0.97, glucose 94, calcium 9.0, AST 16, ALT 21, total protein 7.4, albumin 3.6, serum prealbumin 25.2. Recent wound cultures have been obtained, revealing very rare growth of staph epidermidis, which is felt to be a contaminant. Plan: Patient has been encouraged to optimize her nutritional intake. She has been encouraged to elevate her lower extremities as much as possible, and to refrain from sleeping in a recliner at night. Activity has been encouraged. The patient has recently obtained compression stockings, though the degree of compression is uncertain. She has discontinued smoking. We have applied the second allograft today, using EpiFix 18 mm disc. This is to be left in place, undisturbed, until the patient returns in 2 weeks for reevaluation. It is noted that the patient underwent a cardiac catheterization several weeks ago where it was found that there was a 30% blockage according to the patient's daughter. The patient was placed on medication, though no procedural intervention was felt warranted. We have been made aware of Dr. Abraham's intentions to forego the left lower extremity revascularization, with intent to reevaluate the patient in late May 2019. Patient is not currently a smoker, and has been counseled to continue her efforts to stop smoking. Influenza vaccine was not administered today. Patient stands 5 feet 5 inches tall. She weighs 137 pounds. Her BMI is 22.8, which is normal.
== END 2019-05-22 23:59 ==
LOC: WC 11:00
PROVIDERS: Family Provider Student in an Organized Health Care Education/Training Program; PCP Student in an Organized Health Care Education/Training Program; Visit Provider Surgery
DX: I70.213 Atherosclerosis of native arteries of extremities with intermittent claudication, bilateral legs (principal); S80.812A Abrasion, left lower leg, initial encounter; W22.8XXA Striking against or struck by other objects, initial encounter; M16.9 Osteoarthritis of hip, unspecified; I50.9 Heart failure, unspecified; I13.0 Hypertensive heart and chronic kidney disease with heart failure and stage 1 through stage 4 chronic kidney disease, or unspecified chronic kidney disease; N18.3 Chronic kidney disease, stage 3 (moderate); M79.89 Other specified soft tissue disorders; J44.9 Chronic obstructive pulmonary disease, unspecified; Z87.891 Personal history of nicotine dependence; Z86.711 Personal history of pulmonary embolism; E03.9 Hypothyroidism, unspecified
CPT/HCPCS: 11042; 15271; Q4186

== ENCOUNTER 2019-06-12 10:15 | Outpatient (RCR) | payer MEDICARE, OTHER, SELFPAY ==
[2019-05-23 00:35] VITALS: BP 130/58; PULSE 58; RESP 18; TEMP 36.8
--- NOTE | 2019-06-05 11:58 | PCM.WC.HP ---
(1) Traumatic open wound of left lower leg Status: Chronic Current Visit: Yes Qualifiers: Encounter type: subsequent encounter Code(s): S81.802A - Unspecified open wound, left lower leg, initial encounter (2) History of pulmonary embolism Status: Chronic Current Visit: No Code(s): Z86.711 - Personal history of pulmonary embolism (3) On continuous oral anticoagulation Status: Chronic Current Visit: No Code(s): Z79.01 - MCC (current) use of anticoagulants (4) History of tobacco use Status: Chronic Current Visit: Yes Code(s): Z87.891 - Personal history of nicotine dependence (5) Peripheral artery disease Status: Chronic Current Visit: Yes Code(s): I73.9 - Peripheral vascular disease, unspecified (6) Intermittent claudication of both lower extremities due to atherosclerosis Status: Chronic Current Visit: Yes Code(s): I70.213 - Atherosclerosis of [place] arteries of extremities with intermittent claudication, bilateral legs (7) COPD (chronic obstructive pulmonary disease) Status: Chronic Current Visit: No Code(s): J44.9 - Chronic obstructive pulmonary disease, unspecified (8) History of goiter Status: Chronic Current Visit: No Code(s): Z86.39 - Personal history of other endocrine, nutritional and metabolic disease (9) CHF (congestive heart failure) Status: Chronic Current Visit: No Code(s): I50.9 - Heart failure, unspecified (10) Hypertension Status: Chronic Current Visit: No Code(s): I10 - Essential (primary) hypertension (11) Leg swelling Status: Chronic Current Visit: Yes Code(s): M79.89 - Other specified soft tissue disorders (12) Hypothyroidism Status: Chronic Current Visit: No Code(s): E03.9 - Hypothyroidism, unspecified (13) Chronic renal insufficiency, stage III (moderate) Status: Chronic Current Visit: No Code(s): N18.3 - Chronic kidney disease, stage 3 (moderate) (14) Degenerative arthritis of hip Status: Chronic Current Visit: No Code(s): M16.9 - Osteoarthritis of hip, unspecified (15) 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 The wound had been present for approximately 2 years. It occurred as a result of banging her left emery against wooden steps. The traumatic event occurred approximately 2 years ago. The wound has failed to heal. She was using a steroid ointment topically. Her primary care physician, Dr. Patton, had prescribed a 5-day course of oral antibiotics. The patient, and her daughter at the bedside, could not recall the name of the antibiotic. The patient had been recently evaluated by her primary care physician, and laboratory studies had been obtained. Results were as follows: On February 01, 2019, white blood count was 7.70, hemoglobin 11.8, hematocrit 35.3, platelets 226,000. On January 09, 2019, the following labs were recorded: Glucose 80, sodium 140, potassium 4.2, chloride 103, BUN 28, creatinine 1.07, calcium 7.8. A noninvasive lower extremity arterial study was formed at [facility] on February 08, 2019. Results revealed the right lower extremity to be relatively normal, without evidence of arterial occlusive disease. The left lower extremity demonstrated moderate arterial disease with a resting left ankle-brachial index of 0.69. The patient has been evaluated by a vascular surgeon, Dr. Jn Abraham, who arranged for the patient to undergo a battery of diagnostic studies. The patient relates swelling in her lower extremities. She sleeps in a recliner at night. Her past medical records indicate the presence of intermittent claudication, and the patient is limited in ambulation for reasons she describes as being related to degenerative arthritis of the hip. The patient is a , and lives with her daughter. Patient was a heavy smoker until November,, at which time she was hospitalized with exacerbation of COPD. At that time, she was diagnosed with a pulmonary embolism, and has been on systemic anticoagulation since that time with Xarelto, and told that this would continue for at least 1 year. She has stopped smoking, and has been using a nicotine patch. Past Medical History Past Medical History: Chronic Problems Traumatic open wound of left lower leg (Chronic) History of pulmonary embolism (Chronic) On continuous oral anticoagulation (Chronic) History of tobacco use (Chronic) Peripheral artery disease (Chronic) Intermittent claudication of both lower extremities due to atherosclerosis (Chronic) COPD (chronic obstructive pulmonary disease) (Chronic) History of goiter (Chronic) CHF (congestive heart failure) (Chronic) Hypertension (Chronic) Leg swelling (Chronic) Hypothyroidism (Chronic) Chronic renal insufficiency, stage III (moderate) (Chronic) Degenerative arthritis of hip (Chronic) 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 The patient is a G5, P5, Ab0 Home Medications: Ambulatory Orders Medication Instructions Recorded Acetaminophen 500 mg PO Q4H PRN PRN 02/19/19 Acetaminophen with Codeine 1 ea PO BID 02/19/19 [Acetaminophen-Cod #2 Tablet] Albuterol Inhaler [Ventolin Hfa 2 puff INHALATION Q6H PRN PRN 02/19/19 (SP)] Carvedilol 25 mg PO BID 02/19/19 Cholecalciferol (VIT D3) 400 02/19/19 Fluticasone Furoate [Arnuity 02/19/19 Ellipta] Gabapentin [Neurontin] 400 mg PO 02/19/19 Levothyroxine [Synthroid] 112 mcg PO DAILY 02/19/19 Loratadine 10 mg PO 02/19/19 Mirabegron [Myrbetriq] 25 mg PO 02/19/19 Nicotine [Nicotine Patch] 1 ea TD 02/19/19 Omeprazole [Prilosec] 20 mg PO DAILY 02/19/19 Oxycodone HCl/Acetaminophen PO Q6H PRN PRN 02/19/19 [Percocet 5-325] Pravastatin [Pravachol] 20 mg PO QHS 02/19/19 Rivaroxaban [Xarelto] 20 mg PO DAILY 02/19/19 Ropinirole HCl 0.5 mg PO 02/19/19 Furosemide [Lasix] 40 mg PO DAILY 02/27/19 - Family History Paternal - - The patient's father in his 70s with a history of COPD and skin cancer. The patient's mother in her 70s with a history of stomach cancer. Smoking Status: Former smoker - The patient quit smoking approximately 3 months ago, and using cessation patches since. Tobacco Use: Cigarettes Review of Systems Constitutional: Denies: Chills, Fever, Weight Change Eyes: Denies: Pain, Vision Change HEENT: Denies: Difficulty Hearing, Difficulty Swallowing, Sinus Congestion Cardiovascular: Denies: Chest Pain, Palpitations Respiratory: Denies: Cough, Shortness of Breath Gastrointestinal: Denies: Diarrhea, Nausea, Vomiting Genitourinary: Denies: Dysuria, Hematuria Endocrine: Denies: Heat/ Cold Intolerance, Polydipsia, Polyuria Hematologic/ Lymphatic: Denies: Easy Bruising, Easy Bleeding - Physical Exam Vital Signs Temp Pulse Resp BP 98.2 F 58 L 18 130/58 H 05/23/19 00:35 05/23/19 00:35 05/23/19 00:35 05/23/19 00:35 General: Alert, Oriented x3, Cooperative, No apparent distress, Well developed, Well nourished, - - The patient appears elderly and somewhat frail. She is otherwise alert, conversant, pleasant, and appropriate. Her coloring is good. She appears to be in no acute distress, but rather comfortable. Patient took her temperature, which was 98.8. Her blood pressure, taken by her daughter, was 128/84. HEENT: Atraumatic, PERRLA, EOMI, Normocephalic Lungs: Normal air movement, - - The patient's breathing is normal and unlabored Extremities: No edema, - - The ulceration of the left lower extremity is examined by the TeleHealth video imaging. There is no sign of infection or cellulitis. There is no erythema. In comparison to the head of a Q-tip, it appears to be approximately twice the diameter. There appears to be either dried blood or dry eschar at the surface of the ulceration. Due to the remote visit, no attempt at manipulation or elevation of the eschar was implemented. There appeared to be no swelling or edema in the left lower extremity. Skin: No rashes Neurological: Cranial nerves II-XII grossly intact, Neuro grossly intact Psych/Mental Status: Normal Affect, Appropriate, Alert and oriented to time, place, person, mood and affect Debridement Note No debridement was completed today - This was a TeleHealth Visit. 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 Consent was obtained from the patient. It was conducted with the assistance of the patient's daughter, Naomy. The visit was initiated at 11:35 AM, and completed at 11:55 AM. The visit was conducted using real-time interactive audio and visual communication. This is a 78-year-old female who presented with an open wound on the left anterior tibial surface, which has been present for approximately 2 years. By history, the patient has multiple medical problems, which have been listed above. Based upon history, and past medical records, it appears as though the patient suffers from intermittent claudication secondary to peripheral arterial occlusive disease. We have received medical records from [facility], which have been reviewed, and demonstrate moderate arterial occlusive disease in the left lower extremity, with a resting left ankle-brachial index of 0.69. Her EKG is noted to be abnormal, suspicious for anterior septal ischemia. Transthoracic echocardiography reveals mildly reduced systolic function. Mild hypokinesis of the anterior, anterolateral, and inferolateral myocardium is noted. The patient is known to suffer from moderate to severe arterial occlusive disease in the left lower extremity, and is under the care of a vascular surgeon, Dr. Jn Abraham, who arranged for a battery of diagnostic vascular studies. The patient has recently been re-evaluated by Dr. Abraham, who has indicated that he intends to forego efforts at revascularization at present, scheduling the patient for a follow-up visit in late May,. The patient has also been found to have an aortic aneurysm, though not of sufficient size to warrant intervention at this time. It is noted that the patient has pre-existing comorbid medical conditions, with a recent history of pulmonary embolism for which she is on systemic anticoagulation therapy with Xarelto. Patient has had some recent laboratory studies, and others have been recently obtained on 02/19/19. Results are as follows: Sodium 140, potassium 3.7, chloride 106, BUN 12, creatinine 0.97, glucose 94, calcium 9.0, AST 16, ALT 21, total protein 7.4, albumin 3.6, serum prealbumin 25.2. Recent wound cultures have been obtained, revealing very rare growth of staph epidermidis, which is felt to be a contaminant. Plan: Patient has been encouraged to optimize her nutritional intake. She has been encouraged to elevate her lower extremities as much as possible, and to refrain from sleeping in a recliner at night. Activity has been encouraged. The patient has recently obtained compression stockings, though the degree of compression is uncertain. She has discontinued smoking. We have applied the second allograft today, using EpiFix 18 mm disc, 2 weeks ago. Based on the findings by remote visit today, we are to schedule the patient for an in-office visit in 1 week. It is noted that the patient underwent a cardiac catheterization several weeks ago where it was found that there was a 30% blockage according to the patient's daughter. The patient was placed on medication, though no procedural intervention was felt warranted. We have been made aware of Dr. Abraham's intentions to forego the left lower extremity revascularization, with intent to reevaluate the patient in late May 2019. The patient will follow-up in 1 week. The patient and her daughter indicate that they are adequately stocked with the needed supplies. Patient is not currently a smoker, and has been counseled to continue her efforts to stop smoking. Influenza vaccine was not administered today. Patient stands 5 feet 5 inches tall. She weighs 137 pounds. Her BMI is 22.8, which is normal.
== END 2019-06-21 23:59 ==
LOC: WC 10:15
PROVIDERS: Family Provider Student in an Organized Health Care Education/Training Program; PCP Student in an Organized Health Care Education/Training Program; Visit Provider Surgery
DX: I70.213 Atherosclerosis of native arteries of extremities with intermittent claudication, bilateral legs (principal); J44.9 Chronic obstructive pulmonary disease, unspecified; I13.0 Hypertensive heart and chronic kidney disease with heart failure and stage 1 through stage 4 chronic kidney disease, or unspecified chronic kidney disease; I50.9 Heart failure, unspecified; M79.89 Other specified soft tissue disorders; E03.9 Hypothyroidism, unspecified; N18.3 Chronic kidney disease, stage 3 (moderate); M16.9 Osteoarthritis of hip, unspecified; Z86.711 Personal history of pulmonary embolism; Z87.891 Personal history of nicotine dependence; Z79.899 Other long term (current) drug therapy; Z79.01 Long term (current) use of anticoagulants

== ENCOUNTER → 2022-08-26 | Outpatient (CLI) | payer MEDICARE, OTHER, SELFPAY ==
--- NOTE | 2022-08-26 14:00 | CT_ITS ---
STUDY: CTA ABDOMEN AND PELVIS WITH CONTRAST REASON FOR EXAM: Female, 81 years old. Infrarenal abdominal aortic aneurysm, without rupt RADIATION DOSAGE (If Supplied By Facility): CTDIvol = ( 26.24 ) mGy, DLP = ( 466.56 ) mGycm TECHNIQUE: Transaxial images were obtained from the dome of the diaphragm to the symphysis pubis without oral contrast. IV 100mL Isovue-370 was administered. Sagittal and coronal images were reconstructed. 3-D images were reconstructed. Individualized dose optimization techniques were used for this CT. COMPARISON: Comparison is made with prior study dated May 02, 2019. FINDINGS: Calcified granuloma in the peripheral lateral aspect of the left lower lobe. Mild coronary calcification. Normal liver. Normal gallbladder and extrahepatic biliary system. Normal spleen. Normal pancreas. Normal bilateral adrenal glands. Normal right kidney. There is a 3.9 cm x 4.2 cm left renal cyst. Irregular appearance of the fluid distended stomach. Normal small intestine. Normal colon. The appendix is visualized and appears normal. There is aneurysmal dilatation of the distal thoracic/proximal abdominal aorta with a transverse dimension of 4 cm. Mural thrombus is seen along the left side. There is evidence of a fusiform infrarenal abdominal aortic aneurysm with mural thrombus. The transverse dimension is 6.2 cm. There is evidence of a mural thrombus. Normal inferior vena cava. Normal retroperitoneum. Normal urinary bladder. Enlarged fibroid uterus. Normal abdominal wall. There are diffuse degenerative changes of the visualized lumbar spine. Dextroscoliosis. CT/CTA Abd/Pelvis W/WO Contrast IMPRESSION: Fusiform infrarenal abdominal aortic aneurysm with a transverse dimension of 6.2 cm. Mural thrombus is seen. Aneurysmal dilatation of the distal thoracic aorta/proximal abdominal aorta with a transverse dimension of 4 cm. Left renal cyst. Electronically Signed: Virgilio Nieto MD at 14:29 EDT ,
[2022-08-26 14:13] LABS: CREATININE FINGERSTICK 1.3 mg/dL (0.55-1.02)
== END | disposition home or self-care (01) ==
LOC: CT 13:46
PROVIDERS: PCP Student in an Organized Health Care Education/Training Program; Referring Provider Surgery Vascular Surgery; Visit Provider Surgery Vascular Surgery
DX: I71.43 Infrarenal abdominal aortic aneurysm, without rupture (principal)
CPT/HCPCS: 74174; Q9967

== ENCOUNTER 2024-10-11 08:57 | Outpatient (RCR) | payer MEDICARE, OTHER, SELFPAY ==
[2024-10-11 09:26] VITALS: BP 124/51; PULSE 62; RESP 18; TEMP 36.4
--- NOTE | 2024-10-11 10:23 | PCM.WC.HP ---
History of Present Illness Date of Service: 10/11/24 Chief Complaint: Bilateral buttock ulcer (healed) History of Wound: Ms. Landers was referred to the wound center by her PCP due to nonhealing bilateral buttock ulcers. Noted a few weeks ago. Thought to be due to an allergic reaction following a switch in adult underwear. Had been using an antifungal powder and another salve which was prescribed by her PCP but she cannot remember the name. At the time of presentation, no open area identified. Feels well otherwise. [facility] Medical History (Updated 10/12/24 @ 17:[address] Snow Gunderson MD) Dermatitis History of decubitus ulcer Home Medications ?Medication ?Instructions ?Recorded ?Last Taken ?Type Cholecalciferol (VIT D3) 400 02/19/19 Unknown History acetaminophen 300 mg-codeine 15 mg 1 ea PO BID 02/19/19 Unknown History tablet acetaminophen 500 mg tablet 500 mg PO Q4H PRN PRN Pain Or Fever 02/19/19 Unknown History albuterol sulfate 90 mcg/actuation 2 puff inhalation Q6H PRN PRN 02/19/19 Unknown History aerosol inhaler Wheezing carvedilol 25 mg tablet 25 mg PO BID 02/19/19 Unknown History fluticasone furoate 200 02/19/19 Unknown History mcg/actuation blister powder for inhalation gabapentin 400 mg capsule 400 mg PO 02/19/19 Unknown History levothyroxine 112 mcg tablet 112 mcg PO DAILY 02/19/19 Unknown History loratadine 10 mg capsule 10 mg PO 02/19/19 Unknown History mirabegron 25 mg tablet,extended 25 mg PO 02/19/19 Unknown History release 24 hr nicotine 7 mg/24 hr daily 1 ea TD 02/19/19 Unknown History transdermal patch omeprazole 20 mg capsule,delayed 20 mg PO DAILY 02/19/19 Unknown History release oxycodone-acetaminophen 5 mg-325 PO Q6H PRN PRN Pain Or Fever 02/19/19 Unknown History mg tablet pravastatin 20 mg tablet 20 mg PO QHS 02/19/19 Unknown History rivaroxaban 20 mg tablet 20 mg PO DAILY 02/19/19 Unknown History ropinirole 0.5 mg tablet 0.5 mg PO 02/19/19 Unknown History furosemide 40 mg tablet 40 mg PO DAILY 02/27/19 Unknown History Allergy/AdvReac Type Severity Reaction Status Date / Time No Known Allergies Allergy Verified 10/11/24 09:19 Social History Smoking Status: Current every day smoker ROS Constitutional Constitutional: Denies daytime sleepiness, fever(s), headache(s), increased appetite or lethargy Eyes Eyes: Denies change in eye color, discharge from eye(s), discongugate gaze, double vision, erythema or excessive blinking ENT HEENT: Denies foreign body in nose, halitosis, hearing loss, mouth pain, nasal congestion or nasal obstruction Cardiovascular Cardiovascular: Denies claudication, cold extremities, cyanosis, diaphoresis, dizziness or dyspnea at rest Respiratory/Chest Respiratory/Chest: Denies dyspnea, excessive phlegm production, hemoptysis, inability to speak or nail bed cyanosis Gastrointestinal Gastrointestinal: Denies abdominal pain, coffee ground emesis, cramping, dry heaves or excessive flatus Genitourinary Genitourinary: Denies abdominal discomfort, external genitalia discoloration, flank pain, genital lesions or genital pain Musculoskeletal Musculoskeletal: Reports back pain, joint pain and limited range of motion; Denies tingling or tremors Integumentary Integumentary: Reports erythema; Denies hirsutism, jaundice, lesions, non-healing lesions or skin ulcer Neurologic Neurologic: Denies behavior changes, burning sensations, disequilibrium, focal weakness or lack of coordination Psychiatric Psychiatric: Denies auditory hallucinations, behavioral changes, irritability, panic attacks, tactile hallucinations or visual hallucinations Endocrine Endocrinology: Denies change in body appearance, deepening of the voice, excessive sweating, heat intolerance or increase in ring/shoe/hat size Allergic/Immunologic Allergic/Immunologic: Denies itchy eyes, lip swelling, throat swelling, tongue swelling or wheezing Vital Signs Vital Signs Vital Signs: 10/11/24 09:26 Temperature 97.5 F L Temperature Source Temporal Pulse Rate 62 Respiratory Rate 18 Blood Pressure 124/51 H Blood Pressure Mean 75 Blood Pressure Source Monitor Blood Pressure Position Sitting Blood Pressure Location Left Arm Oxygen Delivery Method Room Air Physical Exam Const alert and no apparent distress General Appearance: cooperative and comfortable HEENT normocephalic and head/scalp atraumatic Head and Scalp: normal to inspection Eyes EOMs intact bilaterally General Eye: normal appearance of both eyes Neck full ROM General: normal visual inspection Resp normal respiratory effort Effort and Inspection: able to speak in complete sentences Neuro moves all extremities and no focal motor deficits Psych mental status grossly normal, thought process normal, cooperative and affect normal Debridement Note Debridement Note Post-Debridement Measurements and Additional Note: Post-Debridement Measurements/Treatment [facility] Ocampo Nurse 1 - General Ulcer Assessment Start: 10/11/24 09:18 Freq: Status: Active Protocol: MARCOS Activity Type Activity Date Activity User E-sign Co-sign Detail Recorded Client Recorded Date Recorded By Document 10/11/24 09:26 DS [id number] 10/11/24 09:31 DS 10/11/24 09:26 WC - Today's Visit Information Type of service Initial Visit Arrival Mode Ambulatory,Cane Accompanied by daughter Patient Identification Verified (Name & Yes ) Patient Requires Transmission-Based No Precautions Safety Precautions Fall Prevention Vital Signs Temperature (97.8 F-99.1 F) 97.5 F L Temperature Source Temporal Pulse Rate (60-100) 62 Pulse Location Monitor Respiratory Rate (12-18) 18 Respiratory rate source Observation Oxygen Delivery Method Room Air Blood Pressure (90/60-120/80) 124/51 H Blood Pressure Mean 75 Source Monitor Position Sitting Blood Pressure Location Left Arm Pain Scale: 0-10 Numeric Is Patient Pain Free? No left side -Description Aching -Intensity 3 -Duration (hours) Chronic -Pain Behavior No Change in Behavior -Alleviating Factors/Interventions None Communication Assessment Preferred language Malagasy Able to Read Yes Able to Write Yes Communication Tools None Right Hearing Abillity Normal Left Hearing Abillity Normal Visual Assistive Devices Glasses Teaching Assessment Preferences Verbal Barriers to Learning None Readiness To Learn Excellent Willingness to Engage in Self Management High Activies Readiness to Engage in Self Management High Activities Anxiety Level Calm Cooperation Cooperative Perception Coherent Interest in Health Problem Asks Questions Education Importance Acknowledges Need Does Patient Smoke tobacco or other Yes substances Smoking Status Current every day smoker Is Patient Diabetic No Functional Assessment Recent Decline in Ability to Perform Ambulation List Device(s) with Patient cane Culture/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 Yes - Nurse 3 - General Ulcer D/C NN Start: 10/11/24 09:18 Freq: Status: Active Protocol: Activity Type Activity Date Activity User E-sign Co-sign Detail Recorded Client Recorded Date Recorded By Document 10/11/24 10:01 [id number] 10/11/24 10:01 10/11/24 10:01 Is Patient Pain Free? Yes WC - Visit Discharge Discharge Condition Stable Ambulatory Status Ambulatory,Cane Transportation Private Auto Charges/Coding Visit Charges Office Visits / Consults: [id number] OV L3 New 30min Assessment/Plan Assessment/Plan (1) History of decubitus ulcer: CODE(S): Z87.2 - Personal history of diseases of the skin and subcutaneous tissue (2) Dermatitis: CODE(S): L30.9 - Dermatitis, unspecified PLAN: Plan As above, no open area identified at this time. Evidence of prior dermatitis/possible ulceration. Moisture control and prevention discussed. Offloading discussed. Patient and daughter voiced understanding. There is no open area, no indication for follow-up at the wound center. Continue follow-up with PCP and here as needed. Their questions were answered and they were advised to let us know if he had any further questions or concerns. Discharged from the wound center. This note was generated with [employer] dictation software. It may contain incorrect words, spelling, and punctuation that were not noted in checking the note before signing.
--- NOTE | 2024-10-12 09:23 | WC ---
PHOTO-B/L BUTTOCKS 10/11/24
--- NOTE | 2024-10-12 09:27 | WC ---
PHOTO-FOLDS BREAST 10/11/24
== END 2024-10-18 07:56 | disposition home or self-care (01) ==
LOC: WC 08:57
PROVIDERS: PCP Student in an Organized Health Care Education/Training Program; Referring Provider Student in an Organized Health Care Education/Training Program; Visit Provider Internal Medicine
DX: Z09 Encounter for follow-up examination after completed treatment for conditions other than malignant neoplasm (principal); L30.9 Dermatitis, unspecified; F17.200 Nicotine dependence, unspecified, uncomplicated; Z87.2 Personal history of diseases of the skin and subcutaneous tissue
CPT/HCPCS: 99214; G0463

== ENCOUNTER 2025-01-23 15:43 | Inpatient (IN) | payer MEDICARE, OTHER, SELFPAY ==
--- NOTE | 2025-01-21 16:12 | PAT.ANESEVAL ---
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 When Was Last Pacemaker Check QUESTION #4 FULL TEXT: You/Your Family Experience fever (hyperthermia) with Anesthesia Last Oral Intake Last Oral intake: Last Oral Intake NPO since Meds taken in AM with sips of water? 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 - cargo and container inspector: PONV - cargo and container inspector Female Yes 01/15/25 13:03 HX of Motion Sickness No 01/15/25 13:03 HX of N/V After Surgery No 01/15/25 13:03 Non-Smoker Yes 01/15/25 13:03 Duration of Surgery greater Yes 01/15/25 13:03 than 60 minutes Number of Risk Factors 3 01/15/25 13:03 PONV Score Moderate Risk 01/15/25 13:03 Respiratory Assessment Respiratory Assessment - cargo and container inspector: Respiratory Tract Infection Hx - cargo and container inspector Hx Respiratory Tract Infection Yes: COUGH 01/15, NO FEVER 01/15/25 13:03 STOP Sleep Apnea STOP Sleep Apnea - cargo and container inspector: STOP Sleep Apnea - cargo and container inspector Hx Hypertension Yes: CONTROLLED WITH MEDS 01/15/25 13:03 Hx Sleep Apnea No 01/15/25 13:03 CPAP BIPAP Do you snore loudly (louder No 01/15/25 13:03 than talking or can be heard Do you often feel tired/ No 01/15/25 13:03 fatigued/ sleepy during daytime? Has anyone observed you stop No 01/15/25 13:03 breathing during sleep? STOP Results Negative 01/15/25 13:03 QUESTION #5 FULL TEXT : Do you snore loudly (louder than talking or can be heard through closed doors)? 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 Specify any problems Hx of Preganancy in last 3 No 01/15/25 13:03 Months Nurse Filling Out Transfusion [email or web address] 01/15/25 13:03 & Questions: Date: 01/15/25 01/15/25 13:03 Time: 13:11 01/15/25 13:03 Patient unable to answer at this time (ie. confused, unrespo /Reproduction History /Reproductive History - cargo and container inspector: /Reproductive Hx- cargo and container inspector Hx Now Gestational Age (in weeks): EDC: Hx Hx Para Hx Section SAB No 01/15/25 13:03 Does the father of the baby or his family experience fever w Father of the baby Malignant Hypertension history comment [facility] Medical History (Updated 01/15/25 @ 14:39 by Sergio Sung) Bilateral cataracts Back pain Gastric reflux Smoker History of edema History of stress test Wears glasses Wears dentures Thyroid disease Uses wheelchair Walker as ambulation aid Ambulates with cane Arthritis Easy bruising Stroke/cerebrovascular accident COPD (chronic obstructive pulmonary disease) History of echocardiogram Cardiology follow-up encounter Dermatitis History of decubitus ulcer Home Medications ?Medication ?Instructions ?Recorded ?Last Taken ?Type acetaminophen 500 mg tablet 500 mg PO Q4H PRN PRN Pain Or Fever 02/19/19 Unknown History albuterol sulfate 90 mcg/actuation 2 puff inhalation Q6H PRN PRN 02/19/19 Unknown History aerosol inhaler Wheezing levothyroxine 112 mcg tablet 112 mcg PO DAILY 02/19/19 Unknown History loratadine 10 mg capsule 10 mg PO DAILY PRN allergy symptoms 02/19/19 Unknown History atorvastatin 40 mg tablet 40 mg PO QHS 10/29/24 Unknown History calcium carb-ergocalciferol (vit 1 tab PO DAILY 10/29/24 Unknown History D2) 600 mg calcium-200 unit tablet oxycodone 10 mg tablet 10 mg PO Q8 pain 10/29/24 Unknown History polyethylene glycol 3350 17 4 g PO DAILY 10/29/24 Unknown History gram/dose oral powder (Miralax) carvedilol 6.25 mg tablet (Coreg) 3.125 mg PO BID 01/15/25 Unknown History pantoprazole 40 mg tablet,delayed 40 mg PO DAILY 01/15/25 Unknown History release Allergy/AdvReac Type Severity Reaction Status Date / Time No Known Allergies Allergy Verified 01/15/25 12:58 Surgical History History of thyroidectomy, total History of AAA (abdominal aortic aneurysm) repair Hx of colonoscopy Social History Smoking Status: Current every day smoker tobacco type: e-cigarettes Audit: Pertinent Findings Pertinent Findings Echo (EF%) pertinent findings: Echo 01/18/2023. The left ventricle cavity size is normal. The estimated ejection fraction is 50 to 55%. Wall motion is normal. Normal diastolic function. There is very mild aortic valve stenosis. The RV systolic pressure by Doppler is 25 mmHg. Consult pertinent findings: Cardiology visit 10/23/2024. Echo in 2022 showed mild aortic stenosis. Patient sounds at least moderate stenosis on exam. Will repeat echo in 3 months prior to next appointment. CAD stable. She underwent a heart cath 03/14/2019 that showed 50% LAD lesion and 50% marginal branch lesion. Echo in January 2019 showed EF 40 to 45%. Heart cath in 2019 showed EF 55 to 60%. Recommendation Anesthesia Recommendation Anesthesia recommendation: OPTIMIZED for anesthesia
[2025-01-23] VITALS (13 sets, daily range): BP systolic 125–169; BP diastolic 67–93; PULSE 50–92; RESP 15–16; TEMP 36.1–37.2; O2SAT 94–100; BMI 22.6; BMI 23.8
--- NOTE | 2025-01-23 09:51 | PCM.PRE.AN2 ---
ASA Classification* ASA Classification ASA Classification: 3 Assessment & Plan Anesthesia* Anesthesia Assessment Anesthesia Assessment: Discussed sedation and/or anesthesia options, risks, benefits, and alternatives with patient/parents/legal guardian/POA. Questions invited. The patient/parents/legal guardian/POA seems to understand and agrees to proceed with anesthesia plan. Reviewed the physical assessment, medical history, allergy history and patient home medications list prior to surgery/procedure/anesthetic and documented any changes. Performed airway and anesthesia risk assessments. 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 When Was Last Pacemaker Check QUESTION #4 FULL TEXT: You/Your Family Experience fever (hyperthermia) with Anesthesia Last Oral Intake Last Oral intake: Last Oral Intake NPO since Meds taken in AM with sips of water? 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 manager Female Yes 01/15/25 13:03 HX of Motion Sickness No 01/15/25 13:03 HX of N/V After Surgery No 01/15/25 13:03 Non-Smoker Yes 01/15/25 13:03 Duration of Surgery greater Yes 01/15/25 13:03 than 60 minutes Number of Risk Factors 3 01/15/25 13:03 PONV Score Moderate Risk 01/15/25 13:03 Respiratory Assessment Respiratory Assessment - resource conservation manager: Respiratory Tract Infection Hx - resource conservation manager Hx Respiratory Tract Infection Yes: COUGH 01/15, NO FEVER 01/15/25 13:03 STOP Sleep Apnea STOP Sleep Apnea - resource conservation manager: STOP Sleep Apnea - resource conservation manager Hx Hypertension Yes: CONTROLLED WITH MEDS 01/15/25 13:03 Hx Sleep Apnea No 01/15/25 13:03 CPAP BIPAP Do you snore loudly (louder No 01/15/25 13:03 than talking or can be heard Do you often feel tired/ No 01/15/25 13:03 fatigued/ sleepy during daytime? Has anyone observed you stop No 01/15/25 13:03 breathing during sleep? STOP Results Negative 01/15/25 13:03 QUESTION #5 FULL TEXT : Do you snore loudly (louder than talking or can be heard through closed doors)? 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 Specify any problems Hx of Preganancy in last 3 No 01/15/25 13:03 Months Nurse Filling Out Transfusion [email or web address] 01/15/25 13:03 & Questions: Date: 01/15/25 01/15/25 13:03 Time: 13:11 01/15/25 13:03 Patient unable to answer at this time (ie. confused, unrespo /Reproduction History /Reproductive History - resource conservation manager: /Reproductive Hx- resource conservation manager Hx Now Gestational Age (in weeks): EDC: Hx Hx Para Hx Section SAB No 01/15/25 13:03 Does the father of the baby or his family experience fever w Father of the baby Malignant Hypertension history comment Active Medications Active Medications: Current Medications Generic Name Dose Route Start Last Admin Trade Name Freq PRN Reason Stop Dose Admin Lactated Ringer's 1,000 mls @ 15 mls/hr 01/23/25 10:00 IV .Q48H BHASKAR PFSH Medical History Bilateral cataracts Back pain Gastric reflux Smoker History of edema History of stress test Wears glasses Wears dentures Thyroid disease Uses wheelchair Walker as ambulation aid Ambulates with cane Arthritis Easy bruising Stroke/cerebrovascular accident COPD (chronic obstructive pulmonary disease) History of echocardiogram Cardiology follow-up encounter Dermatitis History of decubitus ulcer Home Medications ?Medication ?Instructions ?Recorded ?Last Taken ?Type acetaminophen 500 mg tablet 500 mg PO Q4H PRN PRN Pain Or Fever 02/19/19 Unknown History albuterol sulfate 90 mcg/actuation 2 puff inhalation Q6H PRN PRN 02/19/19 Unknown History aerosol inhaler Wheezing levothyroxine 112 mcg tablet 112 mcg PO DAILY 02/19/19 Unknown History loratadine 10 mg capsule 10 mg PO DAILY PRN allergy symptoms 02/19/19 Unknown History atorvastatin 40 mg tablet 40 mg PO QHS 10/29/24 Unknown History calcium carb-ergocalciferol (vit 1 tab PO DAILY 10/29/24 Unknown History D2) 600 mg calcium-200 unit tablet oxycodone 10 mg tablet 10 mg PO Q8 pain 10/29/24 Unknown History polyethylene glycol 3350 17 4 g PO DAILY 10/29/24 Unknown History gram/dose oral powder (Miralax) carvedilol 6.25 mg tablet (Coreg) 3.125 mg PO BID 01/15/25 Unknown History pantoprazole 40 mg tablet,delayed 40 mg PO DAILY 01/15/25 Unknown History release Allergy/AdvReac Type Severity Reaction Status Date / Time No Known Allergies Allergy Verified 01/15/25 12:58 Surgical History History of thyroidectomy, total History of AAA (abdominal aortic aneurysm) repair Hx of colonoscopy Social History Smoking Status: Current every day smoker tobacco type: e-cigarettes Review of Systems (Anesthesia) ROS Narrative System reviewed and no additional complaints, except as documented.
[2025-01-23] MEDS: Lactated Ringers 1,000 ML 15 ML IV (10:26)
--- OUTSIDE RECORDS SUMMARY | 2025-01-23 10:55 | XMS RPT_ITS | CCD ---
Author Organization [facility]iniSyma Care Team Providers Care Desk Officer Name Role Phone UMM VILLALBA, DR SNOW Primary Care Physician ARNULFO AVELAR, STEVEN LEE Attending U navailable CORETTAAR , DR SNOW Primary Care Unavailable PERLA AVELAR, IGGY Attending Unavailab le ROMAR DO, DR SNOW Primary Care Unavailable PERLA AVELAR, IGGY Attending Unavailab le CORETTAAR DO, DR SNOW Primary Care Unavailable UMM VILLALBA, DR SNOW Attending Unavailable UMM VILLALBA, DR SNOW Primary Care Unavailable UMM VILLALBA, DR SNOW Primary Care Unavailable CORETTAAR , DR SNOW Attending Unavailable ROBERT SANDS MD Attending Unavailable UMM VILLALBA, DR SNOW Primary Care Unavailable MIAN ANTHONY, DANITA V Consulting Unavailable SHAVON ANTHONY, ROBERT Moody Admitting Unavailable YOON ABRAMS MD, LUCIAN Consulting Unavailable IRA ANTHONY, NHAN Consulting Unavailable SHAVON ANTHONY, ROBERT Moody Consulting Unavailable ROBERT SANDS MD Attending Unavailable UMM VILLALBA, DR SNOW Primary Care Unavailable Umm VILLALBA, Dr. Snow Primary Care Provider Umm VILLALBA, Dr. Snow Referring Provider [phone] Jalyn ANTHONY, Dr. Adamson Attending Provider Jalyn ANTHONY, Dr. Adamson Other Provider [phone] UMM VILLALBA, DR SNOW Attending Unavailable UMM VILLALBA, DR SNOW Primary Care Unavailable Edy Salomon Primary Care Unavailable Edy Salomon Referring Unavailable Snow Gunderson Consulting Unavailable Snow Gunderson Attending Unavailable Edy Salomon Primary Care Unavailable Camron Gale Attending Unavailable Camron Gale Referring Unavailable Snow Gunderson Attending Unavailable Edy Salomon Primary Care Unavailable Edy Salomon Referring Unavailable ROMAR DO, DR SNOW Primary Care Unavailable SHAISTA DO, IZA Attending Unavailable ROMAR DO, DR SNOW Primary Care Unavailable ROMAR DO, DR SNOW Attending Unavailable ROMAR DO, DR SNOW Primary Care Unavailable ROMAR DO, DR SNOW Attending Unavailable ROMAR DO, DR SNOW Primary Care Unavailable ROMAR DO, DR SNOW Attending Unavailable SHAVON ANTHONY, ROBERT Moody Attending Unavailable ROMAR DO, DR SNOW Primary Care Unavailable PERLA GREENE-DIDIER, IGGY Attending Unavailab le ROMAR DO, DR SNOW Primary Care Unavailable ROMAR DO, DR SNOW Attending Unavailable ROMAR DO, DR SNOW Primary Care Unavailable ROMAR DO, DR SNOW Attending Unavailable ROMAR DO, DR SNOW Primary Care Unavailable ROMAR DO, DR SNOW Primary Care Unavailable YAYA ANTHONY, DR LONNIE JU[facility] Attending Unavai lable ROMAR DO, DR SNOW Primary Care Unavailable ROMAR DO, DR SNOW Attending Unavailable Allergies Allergy Classification Reported Allergen(s) Allergy Type Date of Onset Reaction(s) Facility Aspirin (1 source) Aspirin; Translations: [aspirin] Drug Allergy [facility] (20 sources) Aspirin; Translations: [aspirin] Drug Allergy [facility] Medications Current Medications Medication Drug Class(es) Dates Sig (Normalized) Sig (Original) acetaminophen 500 mg oral tablet (20 sources) Start: 02-01-2019 acetaminophen 500 mg oral tablet Dose : 500 mg = 1 tab(s), Oral, q4h, PRN as needed for pain, 0 Refill(s) Start Date: 02/01/19 Status: Ordered Medication Dispense Status: Completed Total Allowed Fills: 1 Fills Dispensed: 0 acetaminophen 300 mg / codeine phosphate 15 mg oral tablet (2 sources) Opioid Agonist Start: 02-19-2019 Acetaminophen-Codein e 1 EACH tablet Active 1 NMA PO TWICE A DAY February 19, 2019 1:00am Start: 02-19-2019 Acetaminophen- Codeine Active 1 EACH PO TWICE A DAY February 19, 2019 1:00am acetaminophen 325 mg / HYDROcodone bitartrate 5 mg oral tablet (1 source) Opioid Agonist Start: 02-27-2023 [place] 325- 5 m g oral tablet Dose = 1 tab(s), Oral, q6h, PRN Pain, scale 1-3, 0 Refill(s), 61 Start Date: 02/27/23 Status: Ordered acetaminophen 325 mg / oxyCODONE hydrochloride 5 mg oral tablet (11 sources) Opioid Agonist Start: 02-19-2019 Oxycodone-Acet aminophen 1 TABLET tablet Active PO EVERY 6 HOURS NEEDED as needed for Pain Or Fever February 19, 2019 1:00am Start: 02-19-2019 Oxycodone-Acet aminophen Active PO EVERY 6 HOURS NEEDED February 19, 2019 1:00am Start: 02-01-2019 take 1 tablet by yrn th twice daily as needed for pain acetaminophen-oxyCODONE 325 mg-5 mg oral tablet Dose = 1.5 tab(s), Oral, BID, PRN as needed for pain, 0 Refill(s) Start Date: 02/01/19 Status: Ordered [id number] actuat albuterol 0.09 mg/actuat metered dose inhaler (14 sources) beta2-Adrenergic Agonist Start: 02-19-2019 Albut corinne Sulfate 1 INHALER inhaler Active 2 NMA INHALATION EVERY 6 HOURS NEEDED as needed for Wheezing February 19, 2019 1:00am Start: 02-19-2019 take 1 puff(s) by in halation every six hours as needed Albuterol Sulfate Active 2 PUFF INHALATION EVERY 6 HOURS NEEDED February 19, 2019 1:00am Start: 02-01-2019 take 2 puff(s) by in halation every six hours as needed for wheezing Ventolin HFA MDI (90 mcg/inh) inhalation aerosol 2 puff(s), Inhalation, q6hr, PRN as needed for wheezing, 0 Refill(s) Start Date: 02/01/19 Status: Ordered amoxicillin 875 mg / clavulanate 125 mg oral tablet (1 source) Penicillin-class Antibacterial Start: 12-23-2023 End: 01-02-2024 take 1 tablet by mouth every twelve hours at mealtime amoxicillin-clavulanate 875 mg-125 mg oral tablet 1 tab(s), Oral, q12h, with food or milk, X 10 day(s), # 20 tab(s), 0 Refill(s), 01/02/24 12:38:00 PM EST, [id number], 157.3, cm, 12/23/23 11:27:00 EDT, Height, 62.2, kg, 12/23/23 11:27:00 EDT, Dosing Weight Start Date: 12/23/23 Stop Date: 01/02/24 Status: Ordered Arnuity Ellipta 200 mcg inhalation powder (8 sources) Start: 05-09-2019 take 1 puff(s) by inhalation once daily Arnuity Ellipta 200 mcg inhalation powder 1 puff(s), Inhalation, qDay, # 30 EA, 0 Refill(s) Start Date: 05/09/19 Status: Ordered atorvastatin 40 mg oral tablet (20 sources) HMG-CoA Reductase Inhibitor Start: 11-07-2024 End: 05-26-2025 atorvastatin 40 mg oral tablet Dose : 40 mg = 1 tab(s), Oral, qHS, # 100 tab(s), 1 Refill(s), [id number], 165.1, cm, 10/23/24 13:39:00 EDT, Height, kg, 10/23/24 13:39:00 EDT, Dosing Weight Start Date: 11/07/24 Stop Date: 05/26/25 Status: Ordered Medication Dispense Status: Completed Quantity: 100.0 Unit: tab(s) Total Allowed Fills: 2 Fills Dispensed: 0 Start: 07-27-2024 End: 11-04-2024 atorvastatin 40 mg oral tabl et Dose : 40 mg = 1 tab(s), Oral, qHS, # 100 tab(s), 0 Refill(s), [id number], 157.3, cm, 12/23/23 11:27:00 EDT, Height, kg, 12/23/23 11:27:00 EDT, Dosing Weight Start Date: 07/27/24 Stop Date: 11/04/24 Status: Ordered Medication Dispense Status: Completed Quantity: 100.0 Unit: tab(s) Total Allowed Fills: 1 Fills Dispensed: 0 Start: 12-23-2023 End: 07-10-2024 atorvastatin 40 mg oral tabl et Dose : 40 mg = 1 tab(s), Oral, qHS, # 100 tab(s), 1 Refill(s), Pharmacy: [facility] #[id number], 157.3, cm, 12/23/23 11:27:00 EDT, Height, kg, 12/23/23 11:27:00 EDT, Dosing Weight Start Date: 12/23/23 Stop Date: 07/10/24 Status: Ordered Quantity: 100.0 Unit: tab(s) Repeat number: 2 Start: 02-08-2023 atorvastatin 4 0 mg oral tablet Dose : 40 mg = 1 tab(s), Oral, qHS, # 90 tab(s), 0 Refill(s), Pharmacy: [facility] #[id number], 152, cm, 01/11/23 15:09:00 EST, Height, kg, 01/11/23 15:09:00 EST, Dosing Weight Start Date: 02/08/23 Status: Ordered Start: 10-15-2022 atorvastatin 4 0 mg oral tablet Dose : 40 mg = 1 tab(s), Oral, qHS, # 90 tab(s), 1 Refill(s), Pharmacy: [facility], 152, cm, 10/15/22 13:36:00 EDT, Height, kg, 10/15/22 13:36:00 EDT, Dosing Weight Start Date: 10/15/22 Status: Ordered Start: 05-18-2022 atorvastatin 4 0 mg oral tablet Dose : 40 mg = 1 tab(s), Oral, qHS, # 90 tab(s), 0 Refill(s), Pharmacy: [facility] #[id number], 152, cm, 03/16/22 11:29:00 EST, Height, kg, 03/16/22 11:29:00 EST, Dosing Weight Start Date: 05/18/22 Status: Ordered Start: 10-07-2021 atorvastatin 4 0 mg oral tablet Dose : 40 mg = 1 tab(s), Oral, qHS, # 90 tab(s), 1 Refill(s), Pharmacy: [facility], 152, cm, 10/07/21 11:52:00 EDT, Height, kg, 10/07/21 11:52:00 EDT, Dosing Weight Start Date: 10/07/21 Status: Ordered Start: 05-11-2021 atorvastatin 4 0 mg oral tablet Dose : 40 mg = 1 tab(s), Oral, Daily, # 30 tab(s), 0 Refill(s), Pharmacy: [facility], 152, cm, 03/24/21 14:16:00 EST, Height, kg, 03/24/21 14:16:00 EST, Dosing Weight Start Date: 05/11/21 Status: Ordered Start: 01-22-2021 End: 04-22-2021 atorvastatin 40 mg oral tabl et Dose : 40 mg = 1 tab(s), Oral, Daily, # 90 tab(s), 0 Refill(s), Pharmacy: [facility], 162, cm, 01/22/21 11:35:00 EST, Height, kg, 01/22/21 11:35:00 EST, Dosing Weight Start Date: 01/22/21 Stop Date: 04/22/21 Status: Ordered budesonide 0.25 mg/ml inhalation suspension (1 source) Corticosteroid Start: 02-27-2023 Pulmicort Resp ules 0.5 mg/2 mL inhalation suspension Dose : 0.5 mg = 2 mL, Inhalation, BIDRT, 0 Refill(s) Start Date: 02/27/23 Status: Ordered calcium carbonate 1500 mg / cholecalciferol 800 unt chewable tablet (12 sources) Vitamin D Start: 08-21-2024 End: 08-16-2025 take 1 tablet by mouth twice daily calcium (as carbonate)-vitamin D 600 mg-20 mcg (800 intl units) oral tablet, chewable Dose = 1 tab(s), Chewed, BID, # 180 tab(s), 3 Refill(s), Pharmacy: [facility] #[id number], 157.3, cm, 08/21/24 16:24:00 EDT, Height, kg, 08/21/24 16:24:00 EDT, Dosing Weight Start Date: 08/21/24 Stop Date: 08/16/25 Status: Ordered Medication Dispense Status: Completed Quantity: 180.0 Unit: tab(s) Total Allowed Fills: 4 Fills Dispensed: 0 Start: 03-16-2023 End: 03-10-2024 take 1 tablet by mouth twice daily calcium (as carbonate)-vitamin D 600 mg-20 mcg (800 intl units) oral tablet, chewable Dose = 1 tab(s), Chewed, BID, # 180 tab(s), 3 Refill(s), [facility][id number], 160, cm, 03/16/23 13:01:00 EST, Height, kg, 03/16/23 13:01:00 EST, Dosing Weight Start Date: 03/16/23 Stop Date: 03/10/24 Status: Ordered Quantity: 180.0 Unit: tab(s) Repeat number: 4 carvedilol 6.25 mg oral tablet (16 sources) alpha-Adrenergic Edna, beta-Adrenergic Edna Start: 10-02-2024 carvedilol 6.25 mg oral tablet Dose : 3.125 mg = 0.5 tab(s), Oral, BID, # 200 tab(s) Start Date: 10/02/24 Status: Ordered Medication Dispense Status: Completed Quantity: 200.0 Unit: tab(s) Total Allowed Fills: 1 Fills Dispensed: 0 Start: 04-13-2023 carvedilol 6.2 5 mg oral tablet Dose : 3.125 mg = 0.5 tab(s), Oral, BID, # 90 tab(s), 3 Refill(s), [facility]: [facility] #[id number], 160, cm, 03/16/23 13:01:00 EST, Height, kg, 03/16/23 13:01:00 EST, Dosing Weight Start Date: 04/13/23 Status: Ordered Start: 02-24-2023 carvedilol 6.2 5 mg oral tablet Dose : 6.25 mg = 1 tab(s), Oral, Daily, 0 Refill(s) Start Date: 02/24/23 Status: Ordered Start: 03-16-2022 carvedilol 6.2 5 mg oral tablet Dose : 6.25 mg = 1 tab(s), Oral, BID, # 180 tab(s), 3 Refill(s), [facility]acy: [facility] #[id number], 152, cm, 03/16/22 11:29:00 EST, Height, kg, 03/16/22 11:29:00 EST, Dosing Weight Start Date: 03/16/22 Status: Ordered Start: 10-07-2021 carvedilol 6.2 5 mg oral tablet Dose : 6.25 mg = 1 tab(s), Oral, BID, # 180 tab(s), 0 Refill(s), Pharmacy: [facility], 152, cm, 10/07/21 11:52:00 EDT, Height, kg, 10/07/21 11:52:00 EDT, Dosing Weight Start Date: 10/07/21 Status: Ordered Start: 05-11-2021 carvedilol 6.2 5 mg oral tablet Dose : 6.25 mg = 1 tab(s), Oral, BID, # 60 tab(s), 0 Refill(s), [facility]: [facility] [facility], 152, cm, 03/24/21 14:16:00 EST, Height, kg, 03/24/21 14:16:00 EST, Dosing Weight Start Date: 05/11/21 Status: Ordered Start: 01-22-2021 End: 04-22-2021 carvedilol 6.25 mg oral tabl et Dose : 6.25 mg = 1 tab(s), Oral, BID, # 180 tab(s), 0 Refill(s), Pharmacy: [facility], 162, cm, 01/22/21 11:35:00 EST, Height, kg, 01/22/21 11:35:00 EST, Dosing Weight Start Date: 01/22/21 Stop Date: 04/22/21 Status: Ordered Start: 02-19-2019 take 1 tablet by yrn twice daily Carvedilol 25 MG tablet Active 25 mg PO TWICE A DAY February 19, 2019 1:00am Cholecalciferol (1 source) Vitamin D Start: 02-19-2019 Cholecalcifero l (VIT D3) Active 400 February 19, 2019 1:00am Cholecalciferol (VIT D3) Units (1 source) Start: 02-19-2019 Cholecalcifero l (VIT D3) Units Active 400 February 19, 2019 1:00am DME MISCellaneous (2 sources) Start: 10-16-2024 DME MISCellane ous See Instructions, Urinary incontinence supplies and pads. Dx: R32, # 30 EA, 11 Refill(s), Urinary incontinence in female, 64 Start Date: 10/16/24 Status: Ordered Medication Dispense Status: Completed Quantity: 30.0 Unit: EA Total Allowed Fills: 12 Fills Dispensed: 0 Indications: Unspecified urinary incontinence; docusate calcium 240 mg oral capsule (12 sources) Start: 12-23-2023 End: 06-20-2024 docusate calcium 240 mg oral capsule Dose : 240 mg = 1 cap(s), Oral, qDay, with plenty of water, # 90 cap(s), 1 Refill(s), Pharmacy: [facility] #[id number], 157.3, cm, 12/23/23 11:27:00 EDT, Height, kg, 12/23/23 11:27:00 EDT, Dosing Weight Start Date: 12/23/23 Stop Date: 06/20/24 Status: Ordered Quantity: 90.0 Unit: cap(s) Repeat number: 2 Start: 03-16-2023 End: 09-12-2023 docusate calcium 240 mg oral capsule Dose : 240 mg = 1 cap(s), Oral, qDay, with plenty of water, # 90 cap(s), 1 Refill(s), Pharmacy: [facility] #[id number], 160, cm, 03/16/23 13:01:00 EST, Height, kg, 03/16/23 13:01:00 EST, Dosing Weight Start Date: 03/16/23 Stop Date: 09/12/23 Status: Ordered Start: 10-07-2021 End: 04-05-2022 docusate sodium 100 mg oral tablet Dose : 100 mg = 1 tab(s), Oral, BID, PRN as needed for constipation, with plenty of water, # 180 tab(s), 1 Refill(s), Pharmacy: [facility], 152, cm, 10/07/21 11:52:00 EDT, Height Start Date: 10/07/21 Stop Date: 04/05/22 Status: Ordered Flonase 50 mcg/inh nasal spray (1 source) Start: 03-21-2019 take 1 dose nasal route once daily in the morning Flonase 50 mcg/inh nasal spray Dose = 2 spray(s), Nostril, each, qAM, # 16 gram(s), 0 Refill(s), Pharmacy: [facility] Eustachian tube dysfunction Start Date: 03/21/19 Status: Ordered fluticasone propionate 0.05 mg/actuat metered dose nasal spray (20 sources) Corticosteroid Start: 03-21-2019 Flonase 50 mcg /inh nasal spray Dose = 2 spray(s), Nostril, each, qDay, PRN as needed for allergy symptoms, # 16 gram(s), 0 Refill(s), Pharmacy: [address], Eustachian tube dysfunction Start Date: 03/21/19 Status: Ordered Medication Dispense Status: Completed Quantity: 16.0 Unit: g Total Allowed Fills: 1 Fills Dispensed: 0 Indications: Other specified disorders of Eustachian tube, unspecified ear; Start: 02-19-2019 Fluticasone Fu roate 200 MCG blister with device Active February 19, 2019 1:00am Start: 02-19-2019 Fluticasone Fu roate Active February 19, 2019 1:00am fluticasone / salmeterol (14 sources) Corticosteroid, beta2-Adrenergic Agonist Start: 02-22-2023 take 1 dose by inhalation once daily Advair Diskus 250 mcg-50 mcg inhalation powder Dose = 1 puff(s), Inhalation, qDay, 0 Refill(s) Start Date: 02/22/23 Status: Ordered Medication Dispense Status: Completed Total Allowed Fills: 1 Fills Dispensed: 0 Start: 02-22-2023 take 1 dose by inhal ation once daily Advair Diskus 250 mcg-50 mcg inhalation powder Dose = 1 puff(s), Inhalation, qDay, 0 Refill(s) Start Date: 02/22/23 Status: Ordered Repeat number: 1 Start: 02-22-2023 take 1 dose by inhal ation once daily Advair Diskus 250 mcg-50 mcg inhalation powder Dose = 1 puff(s), Inhalation, qDay, 0 Refill(s) Start Date: 02/22/23 Status: Ordered furosemide 40 mg oral tablet (2 sources) Loop Diuretic Start: 02-27-2019 take 1 tablet by mouth once daily Furosemide 40 MG tablet Active 40 mg PO DAILY February 27, 2019 1:00am gabapentin 400 mg oral capsule (2 sources) Anti-epileptic Agent Start: 02-19-2019 Gabapentin 400 MG capsule Active 400 mg PO February 19, 2019 1:00am 24 hr isosorbide mononitrate 30 mg extended release oral tablet (18 sources) Nitrate Vasodilator Start: 10-11-2023 take 1 tablet by mouth once daily isosorbide mononitrate 30 mg oral tablet, extended release 1 tab(s), Oral, qDay, # 90 tab(s), 3 Refill(s), Pharm[facility]: [facility] #[id number], 157.5, cm, 09/13/23 14:59:00 EDT, Height, kg, 09/13/23 14:59:00 EDT, Dosing Weight Start Date: 10/11/23 Status: Ordered Quantity: 90.0 Unit: tab(s) Repeat number: 4 Start: 02-04-2023 take 1 tablet by yrn th once daily isosorbide mononitrate 30 mg oral tablet, extended release 1 tab(s), Oral, qDay, # 90 tab(s), 3 Refill(s), Pharmacy: [facility] #[id number], 152, cm, 01/11/23 15:09:00 EST, Height, kg, 01/11/23 15:09:00 EST, Dosing Weight Start Date: 02/04/23 Status: Ordered Start: 11-04-2022 take 1 tablet by yrn th once daily in the morning isosorbide mononitrate 30 mg oral tablet, extended release 1 tab(s), Oral, qAM, # 90 tab(s), 0 Refill(s), Pharmacy: [facility] #[id number], 152, cm, 10/15/22 13:36:00 EDT, Height, kg, 10/15/22 13:36:00 EDT, Dosing Weight Start Date: 11/04/22 Status: Ordered Start: 05-17-2022 take 1 tablet by yrn th once daily in the morning isosorbide mononitrate 30 mg oral tablet, extended release 1 tab(s), Oral, qAM, # 90 tab(s), 3 Refill(s), [facility]: [facility], 152, cm, 03/16/22 11:29:00 EST, Height, kg, 03/16/22 11:29:00 EST, Dosing Weight Start Date: 05/17/22 Status: Ordered Start: 02-16-2022 take 1 tablet by yrn th once daily in the morning isosorbide mononitrate 30 mg oral tablet, extended release 1 tab(s), Oral, qAM, # 30 tab(s), 2 Refill(s), Pharmacy: [facility] #[id number], 152, cm, 10/07/21 11:52:00 EDT, Height, kg, 10/07/21 11:52:00 EDT, Dosing Weight Start Date: 02/16/22 Status: Ordered Start: 09-01-2020 isosorbide mon onitrate 30 mg oral tablet, extended release Dose : 30 mg = 1 tab(s), Oral, qAM, # 90 tab(s), 3 Refill(s), Pharmacy: [facility], 162, cm, 09/01/20 13:18:00 EDT, Height, kg, 09/01/20 13:18:00 EDT, Dosing Weight Start Date: 09/01/20 Status: Ordered levoFLOXacin 250 mg oral tablet (2 sources) Quinolone Antimicrobial Start: 01-22-2021 levoFLOXacin 250 mg oral tablet See Instructions, Take 2 tabs for first dose p.o., then take 1 tab every 48 hours thereafter., # 4 tab(s), 0 Refill(s), Pharmacy: [facility] 162, cm, 01/22/21 11:35:00 EST, Height, 60.5, kg, 01/22/21 11:35:00 EST, Dosing Weight Start Date: 01/22/21 Status: Ordered levothyroxine sodium 0.075 mg oral tablet (20 sources) l-Thyroxine Start: 10-03-2024 levothyroxine 75 mcg (0.075 mg) oral tablet Dose : 75 mcg = 1 tab(s), Oral, qDayAC, as a single daily dose before breakfast, # 90 tab(s), 1 Refill(s), Pharmacy: [facility]acy #[id number], 157.5, cm, 09/25/24 14:29:00 EDT, Height, kg, 09/25/24 14:29:00 EDT, Dosing Weight Start Date: 10/03/24 Status: Ordered Medication Dispense Status: Completed Quantity: 90.0 Unit: tab(s) Total Allowed Fills: 2 Fills Dispensed: 0 Start: 12-23-2023 End: 02-16-2024 levothyroxine 75 mcg (0.075 mg) oral tablet Dose : 75 mcg = 1 tab(s), Oral, qDayAC, as a single daily dose before breakfast, # 90 tab(s), 2 Refill(s), Pharmacy: [facility]acy #[id number], 157.3, cm, 12/23/23 11:27:00 EDT, Height, kg, 12/23/23 11:27:00 EDT, Dosing Weight Start Date: 01/17/24 Stop Date: 02/16/24 Status: Ordered Medication Dispense Status: Completed Quantity: 90.0 Unit: tab(s) Total Allowed Fills: 3 Fills Dispensed: 0 Start: 08-20-2022 End: 10-14-2023 levothyroxine 75 mcg (0.075 mg) oral tablet Dose : 75 mcg = 1 tab(s), Oral, qDayAC, as a single daily dose before breakfast, # 90 tab(s), 3 Refill(s), Pharmacy: [facility] #[id number], 152, cm, 10/15/22 13:36:00 EDT, Height, kg, 10/15/22 13:36:00 EDT, Dosing Weight Start Date: 10/19/22 Stop Date: 10/14/23 Status: Ordered Start: 01-19-2022 End: 02-02-2022 levothyroxine 88 mcg (0.088 mg) oral tablet Dose : 88 mcg = 1 tab(s), Oral, qDayAC, as a single daily dose before breakfast, # 14 tab(s), 0 Refill(s), Pharmacy: [facility] #[id number], 152, cm, 10/07/21 11:52:00 EDT, Height, kg, 10/07/21 11:52:00 EDT, Dosing Weight Start Date: 01/19/22 Stop Date: 02/02/22 Status: Ordered Start: 10-07-2021 levothyroxine 100 mcg (0.1 mg) oral tablet Dose : 100 mcg = 1 tab(s), Oral, qDay, # 90 tab(s), 1 Refill(s), Pharmacy: [facility], 152, cm, 10/07/21 11:52:00 EDT, Height, kg, 10/07/21 11:52:00 EDT, Dosing Weight Start Date: 10/07/21 Status: Ordered Start: 05-11-2021 levothyroxine 100 mcg (0.1 mg) oral tablet Dose : 100 mcg = 1 tab(s), Oral, qDay, # 30 tab(s), 0 Refill(s), Pharmacy: [facility], 152, cm, 03/24/21 14:16:00 EST, Height, kg, 03/24/21 14:16:00 EST, Dosing Weight Start Date: 05/11/21 Status: Ordered Start: 01-22-2021 End: 04-22-2021 levothyroxine 100 mcg (0.1 m g) oral tablet Dose : 100 mcg = 1 tab(s), Oral, qDay, # 90 tab(s), 0 Refill(s), Pharmacy: [facility], 162, cm, 01/22/21 11:35:00 EST, Height, kg, 01/22/21 11:35:00 EST, Dosing Weight Start Date: 01/22/21 Stop Date: 04/22/21 Status: Ordered Start: 02-19-2019 take 1 tablet by yrn once daily Levothyroxine 112 MCG tablet Active 112 ug PO DAILY February 19, 2019 1:00am linaclotide 0.145 mg oral capsule (2 sources) Guanylate Cyclase-C Agonist Start: 09-06-2024 End: 10-06-2024 Linzess 145 mcg oral capsule Dose : 145 mcg = 1 cap(s), Oral, qDayAC, 30 minutes before breakfast. Do NOT crush/chew, # 30 cap(s), 0 Refill(s), Pharmacy: [facility]/pharmacy #[id number], 162.4, cm, 09/06/24 9:27:00 EDT, Height, kg, 09/06/24 9:27:00 EDT, Dosing Weight Start Date: 09/06/24 Stop Date: 10/06/24 Status: Ordered Medication Dispense Status: Completed Quantity: 30.0 Unit: cap(s) Total Allowed Fills: 1 Fills Dispensed: 0 loratadine 10 mg oral capsule (20 sources) Start: 02-19-2019 Loratadine 10 MG capsule Active 10 mg PO February 19, 2019 1:00am Start: 01-09-2019 loratadine 10 mg oral tablet Dose : 10 mg = 1 tab(s), Oral, AsDirected, PRN as needed for allergy symptoms, 0 Refill(s) Start Date: 01/09/19 Status: Ordered Medication Dispense Status: Completed Total Allowed Fills: 1 Fills Dispensed: 0 24 hr mirabegron 50 mg extended release oral tablet (4 sources) beta3-Adrenergic Agonist Start: 08-05-2020 mirab egron 50 mg oral tablet, extended release Dose : 50 mg = 1 tab(s), Oral, qDay, per urology, # 30 tab(s), 0 Refill(s) Start Date: 08/05/20 Status: Ordered Start: 02-19-2019 take 1 tablet by yrn th every twenty-four hours Mirabegron 25 MG tablet extended release 24 hr Active 25 mg PO February 19, 2019 1:00am Mucus Relief DM 1200 mg-60 mg oral tablet, extended release (2 sources) Start: 10-02-2024 take 1 tablet by mouth every twelve hours as needed for cough and congestion, then take 2 tablets by mouth once daily as needed for cough and congestion Mucus Relief DM 1200 mg-60 mg oral tablet, extended release Dose = 1 tab(s), Oral, q12h, PRN Cough and congestion, not to exceed 2 tablets/day, # 42 tab(s), 0 Refill(s) Start Date: 10/02/24 Status: Ordered Medication Dispense Status: Completed Quantity: 42.0 Unit: tab(s) Total Allowed Fills: 1 Fills Dispensed: 0 mupirocin 0.02 mg/mg topical ointment (2 sources) RNA Synthetase Inhibitor Antibacterial Start: 02-22-2023 mupirocin 2% topical ointment Apply 1 keisha, Topical, BID, Bilateral intranasal application twice daily x 5 days pre-surgery &/or as many days pre-surgery as possible., Apply to: nostril, each, # 22 gram(s), 0 Refill(s), [facility]: [facility] #[id number], Ointment, 162.6, cm, 02/22/23 12:49:00 EST, Height, 63.9, kg, 01/02/24 12:49:00 EST, Dosing Weight Start Date: 02/22/23 Status: Ordered 24 hr nicotine 0.292 mg/hr transdermal system (2 sources) Cholinergic Nicotinic Agonist Start: 02-19-2019 apply 7 mg transdermal route every twenty-four hours Nicotine 7 MG patch 24 hour Active 1 NMA TD February 19, 2019 1:00am omeprazole 20 mg delayed release oral capsule (4 sources) Proton Pump Inhibitor Start: 02-19-2019 End: 02-11-2020 take 1 capsule by mouth once daily Omeprazole 20 MG capsule Active 20 mg PO DAILY February 19, 2019 1:00am oxyCODONE hydrochloride 10 mg oral tablet (12 sources) Opioid Agonist Start: 09-06-2024 oxyCODONE 10 mg oral tablet ( IMMEDIATE release ) Dose : 10 mg = 1 tab(s), q8h, 0 Refill(s), 62 Start Date: 09/06/24 Status: Ordered Medication Dispense Status: Completed Total Allowed Fills: 1 Fills Dispensed: 0 Start: 03-16-2023 oxyCODONE 5 mg oral tablet ( IMMEDIATE release ) Dose : 5 mg = 1 tab(s), Oral, q6h, PRN as needed for pain, 0 Refill(s), 56.8 Start Date: 03/16/23 Status: Ordered Repeat number: 1 polyethylene glycol 3350 [id number] mg powder for oral solution (7 sources) Osmotic Laxative Start: 08-21-2024 MiraLax oral powder for reconstitution See Instructions, gram(s) Oral qDay, 0 Refill(s) Start Date: 08/21/24 Status: Ordered Medication Dispense Status: Completed Total Allowed Fills: 1 Fills Dispensed: 0 pravastatin sodium 20 mg oral tablet (2 sources) HMG-CoA Reductase Inhibitor Start: 02-19-2019 take 1 tablet by mouth at bedtime Pravastatin 20 MG tablet Active 20 mg PO AT BEDTIME February 19, 2019 1:00am predniSONE 20 mg oral tablet (1 source) Start: 01-22-2021 End: 01-27-2021 predniSONE 20 mg oral tablet Dose : 40 mg = 2 tab(s), Oral, qDayM, with food or milk. Do not take any NSAIDs while on this medication., X 5 day(s), # 10 tab(s), 0 Refill(s), 01/27/21 12:29:00 EST, Pharmacy: [id number], 162, cm, 01/22/21 11:35:00 EST, Height, kg, 0... Start Date: 01/22/21 Stop Date: 01/27/21 Status: Ordered rivaroxaban 20 mg oral tablet (2 sources) Factor Xa Inhibitor Start: 02-19-2019 take 1 tablet by mouth once daily Rivaroxaban 20 MG tablet Active 20 mg PO DAILY February 19, 2019 1:00am rOPINIRole 0.5 mg oral tablet (8 sources) Nonergot Dopamine Agonist Start: 02-19-2019 End: 02-24-2020 Ropinirole 0.5 MG tablet Active 0.5 mg PO February 19, 2019 1:00am Senna Leaves (5 sources) Start: 10-07-2021 Senna Oral, qD ay, 0 Refill(s) Start Date: 10/07/21 Status: Ordered Vitamin D3 50 mcg (2000 intl units) oral capsule (7 sources) Start: 10-15-2022 End: 10-10-2023 Vitamin D3 50 mcg (2000 intl units) oral capsule Dose : 2,000 unit(s) = 1 cap(s), Oral, qDayM, with food, # 90 cap(s), 3 Refill(s), Pharmacy: [facility], 152, cm, 10/15/22 13:36:00 EDT, Height, kg, 10/15/22 13:36:00 EDT, Dosing Weight Start Date: 10/15/22 Stop Date: 10/10/23 Status: Ordered Start: 10-07-2021 End: 04-05-2022 Vitamin D3 50 mcg (2000 intl units) oral capsule Dose : 2,000 unit(s) = 1 cap(s), Oral, Daily, # 90 cap(s), 1 Refill(s), Pharmacy: [facility], 152, cm, 10/07/21 11:52:00 EDT, Height, kg, 10/07/21 11:52:00 EDT, Dosing Weight Start Date: 10/07/21 Stop Date: 04/05/22 Status: Ordered Start: 01-22-2021 End: 04-22-2021 Vitamin D3 50 mcg (2000 intl units) oral capsule Dose : 2,000 unit(s) = 1 cap(s), Oral, Daily, # 90 cap(s), 0 Refill(s), Pharmacy: [facility], 162, cm, 01/22/21 11:35:00 EST, Height, kg, 01/22/21 11:35:00 EST, Dosing Weight Start Date: 01/22/21 Stop Date: 04/22/21 Status: Ordered Completed/Discontinued Medications Medication Drug Class(es) Dates Sig (Normalized) Sig (Original) Albuterol (Eqv-Ventolin HFA) 90 mcg/inh inhalation aerosol (13 sources) Start: 02-27-2023 End: 06-27-2023 take 1 dose by inhalation every six hours as needed for wheezing Albuterol (Eqv-Ventolin HFA) 90 mcg/inh inhalation aerosol Dose = 2 puff(s), Inhalation, q6hr, PRN Shortness of breath or wheezing, # 1 EA, 3 Refill(s), Pharmacy: [facility] #[id number], 162.6, cm, 02/24/23 10:08:00 EST, Height, kg, 02/24/23 10:08:00 EST, Dosing Weight Start Date: 02/27/23 Stop Date: 06/27/23 Status: Ordered Medication Dispense Status: Completed Quantity: 1.0 Unit: EA Total Allowed Fills: 4 Fills Dispensed: 0 Start: 02-27-2023 End: 06-27-2023 take 1 dose by inhalation every six hours as needed for wheezing Albuterol (Eqv-Ventolin HFA) 90 mcg/inh inhalation aerosol Dose = 2 puff(s), Inhalation, q6hr, PRN Shortness of breath or wheezing, # 1 EA, 3 Refill(s), Pharmacy: [facility] #[id number], 162.6, cm, 02/24/23 10:08:00 EST, Height, kg, 02/24/23 10:08:00 EST, Dosing Weight Start Date: 02/27/23 Stop Date: 06/27/23 Status: Ordered Quantity: 1.0 Unit: EA Repeat number: 4 Start: 02-27-2023 End: 06-27-2023 take 1 dose by inhalation every six hours as needed for wheezing Albuterol (Eqv-Ventolin HFA) 90 mcg/inh inhalation aerosol Dose = 2 puff(s), Inhalation, q6hr, PRN Shortness of breath or wheezing, # 1 EA, 3 Refill(s), Pharmacy: [facility] #[id number], 162.6, cm, 02/24/23 10:08:00 EST, Height, kg, 02/24/23 10:08:00 EST, Dosing Weight Start Date: 02/27/23 Stop Date: 06/27/23 Status: Ordered calcium carbonate 1250 mg oral tablet (1 source) Start: 06-12-2020 End: 12-09-2020 Oyster Shell Calcium 500 (1250 mg calcium carbonate) oral tablet Dose : 1,250 mg = 1 tab(s), Oral, BID, with meals. with plenty of water, # 180 tab(s), 1 Refill(s), Pharmacy: [facility] 160.5, cm, 06/12/20 14:31:00 EDT, Height, kg, 06/12/20 14:31:00 EDT, Dosing Weight Start Date: 06/12/20 Stop Date: 12/09/20 Status: Ordered famotidine 20 mg oral tablet (19 sources) Histamine-2 Receptor Antagonist Start: 10-07-2021 End: 01-05-2022 famotidine 20 mg oral tablet Dose : 20 mg = 1 tab(s), Oral, BID, PRN Reflux, avoid eating and drinking for 10 minutes after each dose, # 180 tab(s), 0 Refill(s), Pharmacy: [facility], 152, cm, 10/07/21 11:52:00 EDT, Height Start Date: 10/07/21 Stop Date: 01/05/22 Status: Ordered Medication Dispense Status: Completed Quantity: 180.0 Unit: tab(s) Total Allowed Fills: 1 Fills Dispensed: 0 nystatin [id number] unt/ml topical cream (16 sources) Polyene Antifungal Start: 09-25-2024 End: 11-24-2024 nystatin 100,000 units/g topical cream Apply 1 keisha, Topical, BID, PRN Rash, Apply to the affected area twice daily until healing complete., # 45 gram(s), 1 Refill(s), Pharmacy: [facility]/pharmacy #[id number], Cream, 157.5, cm, 09/25/24 14:29:00 EDT, Height, 63, kg, 09/25/24 14:29:00 EDT, Dosing Weight Start Date: 09/25/24 Stop Date: 11/24/24 Status: Ordered Medication Dispense Status: Completed Quantity: 45.0 Unit: g Total Allowed Fills: 2 Fills Dispensed: 0 Start: 03-16-2023 End: 05-15-2023 nystatin 100,000 units/g top ical powder Apply 1 keisha, Topical, TID, PRN Rash, X 30 day(s), # 60 gram(s), 1 Refill(s), Pharmacy: [facility] #[id number], Powder, 160, cm, 03/16/23 13:01:00 EST, Height, 61, kg, 03/16/23 13:01:00 EST, Dosing Weight Start Date: 03/16/23 Stop Date: 05/15/23 Status: Ordered Start: 10-15-2022 End: 12-14-2022 nystatin 100,000 units/g top ical cream Apply 1 keisha, Topical, BID, PRN Rash, Apply to the affected area upper abdomen rash twice daily until healing complete., # 30 gram(s), 1 Refill(s), Pharmacy: [facility] #[id number], Cream, 152, cm, 10/15/22 13:36:00 EDT, Height, 59.8, kg, 10/15/22 13:36:00 EDT, Dosing Weight Start Date: 10/15/22 Stop Date: 12/14/22 Status: Ordered Quantity: 30.0 Unit: g Repeat number: 2 Oyster Shell Calcium 500 (12 50 mg calcium carbonate) oral tablet (8 sources) Start: 10-07-2021 End: 04-05-2022 Oyster Shell Calcium 500 (12 50 mg calcium carbonate) oral tablet Dose : 1,250 mg = 1 tab(s), Oral, qDay, with meals. with plenty of water, # 90 tab(s), 1 Refill(s), Pharmacy: [facility], 152, cm, 10/07/21 11:52:00 EDT, Height, kg, 10/07/21 11:52:00 EDT, Dosing Weight Start Date: 10/07/21 Stop Date: 04/05/22 Status: Ordered Start: 10-07-2021 End: 04-05-2022 Oyster Shell Calcium 500 (12 50 mg calcium carbonate) oral tablet Dose : 1,250 mg = 1 tab(s), Oral, BID, with meals. with plenty of water, # 180 tab(s), 1 Refill(s), Pharmacy: [facility], 152, cm, 10/07/21 11:52:00 EDT, Height, kg, 10/07/21 11:52:00 EDT, Dosing Weight Start Date: 10/07/21 Stop Date: 04/05/22 Status: Ordered Start: 06-12-2020 End: 12-09-2020 Oyster Shell Calcium 500 (12 50 mg calcium carbonate) oral tablet Dose : 1,250 mg = 1 tab(s), Oral, BID, with meals. with plenty of water, # 180 tab(s), 1 Refill(s), Pharmacy: [facility] 160.5, cm, 06/12/20 14:31:00 EDT, Height, kg, 06/12/20 14:31:00 EDT, Dosing Weight Start Date: 06/12/20 Stop Date: 12/09/20 Status: Ordered Trelegy Ellipta 200 mcg-62.5 mcg-25 mcg/inh inhalation powder (3 sources) Start: 02-27-2023 End: 05-28-2023 take 1 dose by inhalation once daily Trelegy Ellipta 200 mcg-62.5 mcg-25 mcg/inh inhalation powder Dose = 1 puff(s), Inhalation, qDay, at the same time every day, # 1 EA, 2 Refill(s), Pharmacy: [facility] #[id number], 162.6, cm, 02/24/23 10:08:00 EST, Height, kg, 02/24/23 10:08:00 EST, Dosing Weight Start Date: 02/27/23 Stop Date: 05/28/23 Status: Ordered Problems Active Problems Problem Classification Problem Date Documented Date Episodic/Chronic Acute posthemorrhagic anemia (5 sources) Acute posthemorrhagic anemia 03-16-2023 Episodic Allergic reactions (3 sources) Inflammatory dermatosis; Translations: [Dermatitis, unspecified] Onset: 5 10-12-2024 Episodic Aortic; peripheral; and visceral artery aneurysms (20 sources) Abdominal aortic aneurysm; 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] 04-18-2019 Chronic Asthma (20 sources) Uncomplicated mild persistent asthma 02-08-2019 Chronic Comment on above: Per prior patient re cords Bacterial infection; unspecified site (10 sources) Infection due to Staphylococcus epidermidis 03-28-2019 Episodic Comment on above: 03/26/19 deep wound culture Chronic kidney disease (12 sources) Chronic kidney disease stage 3B ; Translations: [Chronic kidney disease stage 3] 08-15-2019 Chronic Chronic obstructive pulmonary disease and bronchiectasis (20 sources) Acute exacerbation of chronic obstructive airways disease; Translations: [Chronic obstructive lung disease] Onset: 5 01-22-2021 Chronic Comment on above: Noted on imaging Chronic ulcer of skin (3 sources) Chronic ulcer of lower extremity; Translations: [Non-pressure chronic ulcer of unspecified part of unspecified lower leg with fat layer exposed] 06-05-2019 Chronic Congestive heart failure; nonhypertensive (20 sources) Congestive heart failure; Translations: [Heart failure] Onset: 5 03-26-2019 Chronic Comment on above: EF 45%, grade I felder tolic dysfunction, echo 02/08 Coronary atherosclerosis and other heart disease (20 sources) Coronary arteriosclerosis in [place] artery 04-18-2019 Chronic Deficiency and other anemia (4 sources) Iron deficiency anemia 02-12-2019 Episodic Deficiency and other anemia (20 sources) Macrocytic anemia 02-01-2019 Episodic Diseases of mouth; excluding dental (9 sources) Ulcer of mouth 12-23-2023 Episodic Disorders of lipid metabolism (20 sources) Hyperlipidemia; Translations: [Hyperlipidemia, unspecified] Onset: 5 08-15-2019 Chronic Esophageal disorders (20 sources) Gastroesophageal reflux disease 02-01-2019 Chronic Essential hypertension (20 sources) Hypertensive disorder; Translations: [Essential (primary) hypertension] Onset: 5 02-21-2019 Chronic Fluid and electrolyte disorders (20 sources) Hypernatremia 02-12-2019 Episodic Genitourinary symptoms and ill-defined conditions (20 sources) Incontinence; Translations: [Urinary incontinence] 08-05-2020 Chronic Heart valve disorders (20 sources) Aortic valve calcification; Translations: [Aortic valve regurgitation] 02-09-2019 Chronic Comment on above: mild on echo 02/08 Lymphadenitis (20 sources) Hilar lymphadenopathy 02-21-2019 Episodic Comment on above: bilateral per cta left on CTA 05/10 wu cified Mycoses (20 sources) Onychomycosis of toenails 02-21-2019 Episodic Neoplasms of unspecified nature or uncertain behavior (2 sources) Neoplasm of soft palate 09-26-2024 Episodic Nonspecific chest pain (2 sources) Chest pain 03-14-2019 Episodic Nutritional deficiencies (20 sources) Vitamin D deficiency 02-23-2019 Chronic Open wounds of extremities (2 sources) Open wound of left lower leg; Translations: [Unspecified open wound, left lower leg, initial encounter] 06-05-2019 Episodic Osteoarthritis (8 sources) Arthritis; Translations: [Osteoarthritis of hip] 02-01-2019 Chronic Osteoporosis (20 sources) Osteoporosis 02-23-2019 Chronic Other acquired deformities (10 sources) Scoliosis deformity of spine 05-09-2019 Chronic Other acquired deformities (20 sources) Scoliosis of lumbar spine 06-26-2019 Chronic Comment on above: 03/09 xray per patien t records Other aftercare (2 sources) Drug therapy finding; Translations: [long term acute care registered nurse (current) use of anticoagulants] 04-24-2019 Episodic Other aftercare (1 source) Encounter for follow-up examination after completed treatment for conditions other than malignant neoplasm; Translations: [Encounter for follow-up examination after completed treatment for conditions other than malignant neoplasm] Onset: Episodic Other and ill-defined heart disease (1 source) Heart disease; Translations: [Heart disease, unspecified] Chronic Other bone disease and musculoskeletal deformities (20 sources) 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 Chronic Comment on above: per xray records Other circulatory disease (20 sources) Abnormal peripheral pulse 03-26-2019 Episodic Other circulatory disease (4 sources) History of lacunar cerebrovascular accident 09-06-2024 Episodic Other connective tissue disease (2 sources) Swelling of lower limb; Translations: [Other specified soft tissue disorders] 06-05-2019 Episodic Other diseases of bladder and urethra (20 sources) Overactive bladder 08-05-2020 Chronic Other diseases of kidney and ureters (1 source) Disorder of kidney and/or ureter; Translations: [Other specified disorders of kidney and ureter] Onset: 5 Chronic Other diseases of kidney and ureters (4 sources) Renal mass 09-06-2024 Chronic Other diseases of kidney and ureters (1 source) Other specified disorders of kidney and ureter; Translations: [Other specified disorders of kidney and ureter] Onset: 5 Chronic Other diseases of kidney and ureters (20 sources) Cyst of kidney 05-24-2019 Episodic Comment on above: On CT thorax 06/10 Other diseases of kidney and ureters (4 sources) Kidney disease 02-01-2019 Episodic Comment on above: stage 2 Other diseases of veins and lymphatics (1 source) Venous insufficiency (chronic) (peripheral); Translations: [Venous insufficiency (chronic) (peripheral)] Onset: 5 Episodic Other ear and sense organ disorders (20 sources) Lesion of ear canal 06-13-2020 Episodic Other gastrointestinal disorders (20 sources) Constipation 06-12-2020 Episodic Other gastrointestinal disorders (2 sources) Therapeutic opioid induced constipation 09-26-2024 Episodic Other hematologic conditions (20 sources) Increased serum protein level 02-21-2019 Episodic Other hereditary and degenerative nervous system conditions (20 sources) Restless legs 02-01-2019 Chronic Other inflammatory condition of skin (15 sources) Intertrigo 10-15-2022 Episodic Other liver diseases (20 sources) Steatosis of liver 02-23-2019 Chronic Comment on above: Noted on CTA chest 02/22/18 Other liver diseases (20 sources) Large liver 02-07-2019 Episodic Comment on above: Noted on CTA chest 1 02/22/18 Noted on CTA chest 03/11 Other lower respiratory disease (20 sources) Interstitial lung disease 02-23-2019 Chronic Comment on above: Per chest x-ray 12/22 9 per [facility] hospitalization records Other lower respiratory disease (20 sources) Abnormal findings on diagnostic imaging of lung 02-07-2019 Episodic Comment on above: Noted on CTA chest 02/22/18 Other lower respiratory disease (2 sources) Dyspnea 03-26-2019 Episodic Other lower respiratory disease (11 sources) Dyspnea on exertion 02-01-2019 Episodic Other lower respiratory disease (20 sources) H/O: pneumonia 02-21-2019 Episodic Other lower respiratory disease (20 sources) H/O: respiratory disease 02-23-2019 Episodic Comment on above: Per prior patient re cords Other lower respiratory disease (20 sources) Lung mass 02-23-2019 Episodic Comment on above: Plan for 6 months of anticoagulation per pulmonology notes Per prior patient re cords Other lower respiratory disease (20 sources) Multiple nodules of lung 02-21-2019 Episodic Comment on above: per hospital records [facility] 01/09 Other nervous system disorders (20 sources) Neuropathy 02-01-2019 Chronic Other non-traumatic joint disorders (20 sources) Arthritis of hip 02-26-2019 Chronic Other non-traumatic joint disorders (20 sources) Hip pain 02-01-2019 Episodic Comment on above: right Other non-traumatic joint disorders (19 sources) Shoulder pain 10-07-2021 Episodic Other nutritional; endocrine; and metabolic disorders (20 sources) Hypermagnesemia 02-23-2019 Chronic Other nutritional; endocrine; and metabolic disorders (20 sources) Hyperphosphatemia 07-23-2020 Chronic Other nutritional; endocrine; and metabolic disorders (20 sources) Hypocalcemia 02-01-2019 Chronic Other nutritional; endocrine; and metabolic disorders (18 sources) Hyperbilirubinemia 10-08-2021 Chronic Other nutritional; endocrine; and metabolic disorders (1 source) Disorder of bilirubin metabolism; Translations: [Other disorders of bilirubin metabolism] Chronic Other nutritional; endocrine; and metabolic disorders (2 sources) H/O: thyroid disorder; Translations: [Personal history of other endocrine, nutritional and metabolic disease] 02-19-2019 Episodic Other screening for suspected conditions (not mental disorders or infectious disease) (20 sources) Bone density below reference range; Translations: [Decreased renal function] 02-21-2019 Episodic Comment on above: On chest x-ray 01/09 Other skin disorders (11 sources) Cyst of skin 05-19-2023 Episodic Other skin disorders (11 sources) Mass of scalp 04-26-2023 Episodic Other skin disorders (9 sources) Mass of neck 12-23-2023 Episodic Other skin disorders (2 sources) History of pressure ulcer; Translations: [Personal history of diseases of the skin and subcutaneous tissue] 10-12-2024 Episodic Other skin disorders (1 source) Personal history of diseases of the skin and subcutaneous tissue; Translations: [Personal history of diseases of the skin and subcutaneous tissue] Onset: Episodic Other upper respiratory disease (20 sources) Allergic rhinitis 02-01-2019 Chronic Otitis media and related conditions (1 source) Eustachian tube disorder; Translations: [Other specified disorders of Eustachian tube, unspecified ear] Onset: 4 Episodic Johnna-; endo-; and myocarditis; cardiomyopathy (except that caused by tuberculosis or sexually transmitted disease) (20 sources) Ejection murmur 02-01-2019 Chronic Peripheral and visceral atherosclerosis (20 sources) Atherosclerosis of aorta; Translations: [Intermittent claudication] Onset: 5 02-23-2019 Chronic Comment on above: Left on ZIA 02/08 Pulmonary heart disease (20 sources) Pulmonary embolism; Translations: [H/O: pulmonary embolus] 02-23-2019 Episodic Comment on above: right pulmonary rio ry embolis 12/23/2018 Per prior patient records Residual codes; unclassified (2 sources) Peripheral edema 03-26-2019 Episodic Residual codes; unclassified (20 sources) Tobacco user 02-23-2019 Episodic Residual codes; unclassified (20 sources) Postmenopausal state 03-09-2021 Episodic Residual codes; unclassified (15 sources) Nicotine-filled electronic cigarette user 10-18-2022 Episodic Residual codes; unclassified (1 source) Past history of procedure; Translations: [Other specified postprocedural states] Episodic Screening and history of mental health and substance abuse codes (2 sources) Tobacco use and exposure - finding; Translations: [Personal history of nicotine dependence] 06-05-2019 Episodic Skin and subcutaneous tissue infections (2 sources) Cellulitis of lower limb 02-01-2019 Episodic Spondylosis; intervertebral disc disorders; other back problems (20 sources) Osteoarthritis of lumbar spinal facet joint 06-26-2019 Chronic Comment on above: 03/09 xray per patien t records: Marginal osteophytes, severe intervertebral disc space narrowing, sclerotic hypertrophic degenerative changes of the facets from L3-L4 caudally are seen, severe spondylitic changes Spondylosis; intervertebral disc disorders; other back problems (20 sources) Low back pain 02-01-2019 Episodic Substance-related disorders (13 sources) Nicotine dependence; Translations: [Nicotine dependence, unspecified, uncomplicated] Onset: 5 03-16-2023 Chronic Thyroid disorders (20 sources) Hypothyroidism; Translations: [Hypothyroidism, unspecified] 02-21-2019 Chronic Comment on above: post-procedural Unclassified (15 sources) For resuscitation 10-18-2022 Unclassified (2 sources) Pressure injury 09-26-2024 Varicose veins of lower extremity (1 source) Varicose veins of bilateral lower extremities with pain; Translations: [Varicose veins of bilateral lower extremities with pain] Onset: Episodic Past or Other Problems Problem Classification Problem Date Documented Da te Episodic/Chronic Abdominal pain (6 sources) Abdominal pain; Translations: [Unspecified abdominal pain] Onset: 09-04-2024 Episodic Conditions associated with dizziness or vertigo (20 sources) Dizziness; Translations: [Lightheadedness] Onset: 08-29-2024 03-24-2021 Episodic Immunizations and screening for infectious disease (6 sources) Pneumococcal vaccination given Onset: 01-10-2019 03-26-2019 Episodic Other gastrointestinal disorders (2 sources) Constipation, unspecified; Translations: [Constipation, unspecified] Onset: 09-04-2024 Episodic Other lower respiratory disease (1 source) Shortness of breath; Translations: [Shortness of breath] Onset: 08-29-2024 Episodic Other skin disorders (2 sources) Epidermal cyst; Translations: [Epidermal cyst] Onset: 06-02-2023 Episodic Results Test Name Value Interpretation Reference Range Facility CT ABD/PELVIS W/ IV CONTRAST ONLYon 12-12-2024 CT ABD/PELVIS W/ IV CONTRAST ONLY ORIGINAL EXAMINATION: CT OF THE ABDOMEN AND PELVIS WITH [id number]/2025 1:22 pm TECHNIQUE: CT of the abdomen and pelvis was performed with the administration of intravenous contrast. Multiplanar reformatted images are provided for review. Automated exposure control, iterative reconstruction, and/or weight based adjustment of the mA/kV was utilized to reduce the radiation dose to as low as reasonably achievable. COMPARISON: 09/04/2024 CT chest abdomen pelvis HISTORY: ORDERING SYSTEM PROVIDED HISTORY: Reason for Exam: D 41.02 NEOPLASM OF UNCERTAIN BEHAVIOR OF LEFT KIDNEY. FINDINGS: The heart is not enlarged. The lungs are clear. No pleural or pericardial effusion. No aggressive osseous lesions. Severe degenerative changes of the bilateral hips. Severe degenerative changes of the spine. The liver, spleen, pancreas, and adrenal glands are normal. Symmetric nephrograms. Heterogeneous left midpole renal mass measures 2.7 x 2.2 cm, previously 2.7 x 2.2 cm. Adjacent simple appearing renal cyst measuring 4.3 cm.. Pelvicaliectasis. Bladder wall thickening may relate to under distension. The colon is normal. The appendix is not seen. The small bowel is grossly normal. Status post abdominal aortic aneurysm repair with stable saccular aneurysms of the aorta at the hiatus and descending thoracic aorta measuring roughly 3.2 cm wide and 0.8 cm tall in the thorax and 1.8 cm wide by 0.7 cm tall at the hiatus. No lymphadenopathy. No free fluid or free air. IMPRESSION: Unchanged left renal mass suspicious for neoplasm. Unchanged saccular aortic aneurysms. I have personally reviewed the images of this examination and agree with the resident's findings and interpretation. Interpreted by: Billy Bergman DO Preliminary Report By: Kev Erickson MD Electronically signed By Billy Bergman DO Dictated Date: 12/12/2024 3:40:36 PM Prelim Date: 12/12/2024 4:29:05 PM Sign Date: 12/12/2024 4:29:05 PM Ordering Provider: LONNIE JAVIER Normal [facility] W[facility] C[facility] History AND Physic vicky 10-11-2024 Wound Ctr History & Physical [facility] [address] [place] [id number] H P Exam - Wound Care 10/11/24 1023 MR#: [id number] Acct: [id number] Name: ROSA LANDERS Rep #: [id number] : [id number] 84 From: Snow Gunderson MD PCP: Dr. Edy Salomon DO Status:REG RCR Location: History of Present Illness Date of Service: 10/11/24 Chief Complaint: Bilateral buttock ulcer (healed) History of Wound: Ms. Landers was referred to the wound center by her PCP due to nonhealing bilateral buttock ulcers. Noted a few weeks ago. Thought to be due to an allergic reaction following a switch in adult underwear. Had been using an antifungal powder and another salve which was prescribed by her PCP but she cannot remember the name. At the time of presentation, no open area identified. Feels well otherwise. [facility] Medical History (Updated 10/12/24 @ 17:[address] Snow Gunderson MD) Dermatitis History of decubitus ulcer Home Medications ???Medication ???Instructions ???Recorded ???Last Taken ???Type Cholecalciferol (VIT D3) 400 02/19/19 Unknown History acetaminophen 300 mg-codeine 15 mg 1 ea PO BID 02/19/19 Unknown His tory tablet acetaminophen 500 mg tablet 500 mg PO Q4H PRN PRN Pain Or Feve r 02/19/19 Unknown History albuterol sulfate 90 mcg/actuation 2 puff inhalation Q6H PRN PRN Unknown History aerosol inhaler Wheezing carvedilol 25 mg tablet 25 mg PO BID 02/19/19 Unknown Hist ory fluticasone furoate 200 02/19/19 Unknown History mcg/actuation blister powder for inhalation gabapentin 400 mg capsule 400 mg PO 02/19/19 Unknown History levothyroxine 112 mcg tablet 112 mcg PO DAILY 02/19/19 Unknown History loratadine 10 mg capsule 10 mg PO 02/19/19 Unknown History mirabegron 25 mg tablet,extended 25 mg PO 02/19/19 Unknown History release 24 hr nicotine 7 mg/24 hr daily 1 ea TD 02/19/19 Unknown History transdermal patch omeprazole 20 mg capsule,delayed 20 mg PO DAILY 02/19/19 Unknown Hi story release oxycodone-acetaminophe n 5 mg-325 PO Q6H PRN PRN Pain Or Fever 02/19 Unknown History mg tablet pravastatin 20 mg tablet 20 mg PO QHS 02/19/19 Unknown Hist ory rivaroxaban 20 mg tablet 20 mg PO DAILY 02/19/19 Unknown Hi story ropinirole 0.5 mg tablet 0.5 mg PO 02/19/19 Unknown History furosemide 40 mg tablet 40 mg PO DAILY 02/27/19 Unknown Hi story Allergy/AdvReac Type Severity Reaction Status Date / Time No Known Allergies Allergy Verified 10/11/24 09:19 Social History Smoking Status: Current every day smoker ROS Constitutional Constitutional: Denies daytime sleepiness, fever(s), headache(s), increased appetite or lethargy Eyes Eyes: Denies change in eye color, discharge from eye(s), discongugate gaze, double vision, erythema or excessive blinking ENT HEENT: Denies foreign body in nose, halitosis, hearing loss, mouth pain, nasal congestion or nasal obstruction Cardiovascular Cardiovascular: Denies claudication, cold extremities, cyanosis, diaphoresis, dizziness or dyspnea at rest Respiratory/Chest Respiratory/Chest: Denies dyspnea, excessive phlegm production, hemoptysis, inability to speak or nail bed cyanosis Gastrointestinal Gastrointestinal: Denies abdominal pain, coffee ground emesis, cramping, dry heaves or excessive flatus Genitourinary Genitourinary: Denies abdominal discomfort, external genitalia discoloration, flank pain, genital lesions or genital pain Musculoskeletal Musculoskeletal: Reports back pain, joint pain and limited range of motion; Denies tingling or tremors Integumentary Integumentary: Reports erythema; Denies hirsutism, jaundice, lesions, non-healing lesions or skin ulcer Neurologic Neurologic: Denies behavior changes, burning sensations, disequilibrium, focal weakness or lack of coordination Psychiatric Psychiatric: Denies auditory hallucinations, behavioral changes, irritability, panic attacks, tactile hallucinations or visual hallucinations Endocrine Endocrinology: Denies change in body appearance, deepening of the voice, excessive sweating, heat intolerance or increase in ring/shoe/hat size Allergic/Immunologic Allergic/Immunologic: Denies itchy eyes, lip swelling, throat swelling, tongue swelling or wheezing Vital Signs Vital Signs Vital Signs: 10/11/24 09:26 Temperature 97.5 F L Temperature Source Temporal Pulse Rate 62 Respiratory Rate 18 Blood Pressure 124/51 H Blood Pressure Mean 75 Blood Pressure Source Monitor Blood Pressure Position Sitting Blood Pressure Location Left Arm Oxygen Delivery Method Room Air Physical Exam Const alert and no apparent distress General Appearance: cooperative and comfortable HEENT normocephalic and head/scalp atraumatic Head and Scalp: normal to inspection (more content not included)... Normal [facility] .Auto Diffon 09-25-2024 Basophil, Absolute 0.0 10 3/mcL Normal 0.0-0.3 [facility] Comment on above: Performed By: #### T SHR, CMP, GFR #### [address] [address] Basophils/100 WBC (Bld) 0.3 % Normal 0.0-2.5 [facility] Comment on above: Performed By: #### T SHR, CMP, GFR #### [id number] [place], [place] [address] Eosinophil, Absolute 0.1 10 3/mcL Normal 0.0-0.7 [facility] Comment on above: Performed By: #### T SHR, CMP, GFR #### [address] [address] Eosinophils/100 WBC (Bld) 1.8 % Normal 0.0-6.0 [facility] Comment on above: Performed By: #### T SHR, CMP, GFR #### [address] [address] Lymphocyte, Absolute 1.5 10 3/mcL Normal 0.9-4.3 [facility] Comment on above: Performed By: #### T LAUREN, CMP, GFR #### [address] [address] Lymphocytes/100 WBC (Bld) 23.2 % Normal 20.0-40.0 [facility] Comment on above: Performed By: #### T LAUREN, CMP, GFR #### [address] [address] Monocyte, Absolute 0.6 10 3/mcL Normal 0.1-1.4 [facility] Comment on above: Performed By: #### T LAUREN, CMP, GFR #### [address] [address] Monocytes/100 WBC (Bld) 9.1 % Normal 2.0-13.0 [facility] Comment on above: Performed By: #### T LAUREN, CMP, GFR #### [address] [address] Neutrophils/100 WBC (Bld) 65.6 % Normal 50.0-75.0 [facility] Comment on above: Performed By: #### T LAUREN, CMP, GFR #### [address] [address] .GFRon 09-25-2024 Estimated Glomerular Filtration Rate 48 ml/min/1.73sqm Normal [facility] Comment on above: Result Comment: Stages of Chronic Kidney Disease (CKD) Stage Description eGFR(ml/min/1.73 sq.m.) CKD 1 Normal kidney function or >=90 normal kindney function with possible kidney damage (ex. Proteinuria) CKD 2 Kidney damage with mild loss 60-89 of kidney function CKD 3a Mild to moderate loss of kidney 45-59 function CKD 3b Moderate to severe loss of 30-44 of kindey function CKD 4 Severe loss of kidney function 15-29 CKD 5 Kidney failure <15 Note: (go live 2024) the eGFR calculation was updated to the 2020 CKD-EPI creatinine equation without a race factor to calculate the eGFR results. Performed By: #### T SHR, CMP, GFR #### [address] [address] .NEUABSon 09-25-2024 Neutrophil, Absolute 4.3 10 3/mcL Normal 2.3-8.1 [facility] Comment on above: Performed By: #### T SHR, CMP, GFR #### [place] [address] BILAIon 09-25-2024 Bili Indirect 1.1 mg/dL Normal [facility] Comment on above: Performed By: #### T SHR, CMP, GFR #### [place] [address] Bili Direct 0.3 mg/dL High 0.0-0.2 [facility] Comment on above: Result Comment: Use of this assay is not recommended for patients undergoing treatment with eltrombopag due to the potential for falsely elevated results. Performed By: #### T SHR, CMP, GFR #### [address] [place] [address] Bili Total 1.4 mg/dL High 0.2-1.0 [facility] Comment on above: Result Comment: Use of this assay is not recommended for patients undergoing treatment with eltrombopag due to the potential for falsely elevated results. Performed By: #### T SHR, CMP, GFR #### [place] [address] BMPon 09-25-2024 BUN/Creatinine Ratio 21 ratio Normal 7-27 [facility] Comment on above: Performed By: #### T SHR, CMP, GFR #### [address] [address] Calcium [Mass/Vol] 9.4 mg/dL Normal 8.4-10.2 [facility] Comment on above: Performed By: #### T SHR, CMP, GFR #### [address] [address] Chloride [Moles/Vol] 105 mmol/L Normal 98-107 [facility] Comment on above: Performed By: #### T SHR, CMP, GFR #### [address] [address] CO2 [Moles/Vol] 26 mmol/L Normal 23-31 [facility] Comment on above: Performed By: #### T SHR, CMP, GFR #### [address] [address] Creatinine [Mass/Vol] 1.13 mg/dL High 0.51-0.95 [facility] Comment on above: Performed By: #### T SHR, CMP, GFR #### [address] [address] Electrolyte Balance 11.0 mEq/L Normal 4.0-15.0 [facility] Comment on above: Performed By: #### T SHR, CMP, GFR #### [address] [address] Glucose [Mass/Vol] 84 mg/dL Normal 83-110 [facility] Comment on above: Performed By: #### T SHR, CMP, GFR #### [address] [address] Potassium [Moles/Vol] 4.4 mmol/L Normal 3.5-5.1 [facility] Comment on above: Performed By: #### T SHR, CMP, GFR #### [address] [address] Sodium [Moles/Vol] 142 mmol/L Normal 136-145 [facility] Comment on above: Performed By: #### T SHR, CMP, GFR #### [address] [address] Urea nitrogen [Mass/Vol] 24 mg/dL High 7-18 [facility] Comment on above: Performed By: #### T SHR, CMP, GFR #### [address] [address] CBCon 09-25-2024 Erythrocyte distribution width (RBC) [Ratio] 13.6 % Normal 11.5-15.5 [facility] Comment on above: Performed By: #### T SHR, CMP, GFR #### [address] [address] Hematocrit (Bld) [Volume fraction] 39.1 % Normal 34.0-46.0 [facility] Comment on above: Performed By: #### T SHR, CMP, GFR #### [address] [address] Hgb 13.3 G/dL Normal 12.0-16.0 [facility] Comment on above: Performed By: #### T SHR, CMP, GFR #### [address] [address] MCH (RBC) [Entitic mass] 31.9 pg Normal 27.0-33.0 [facility] Comment on above: Performed By: #### T SHR, CMP, GFR #### [address] [address] MCHC 34.0 G/dL Normal 32.0-36.0 [facility] Comment on above: Performed By: #### T SHR, CMP, GFR #### [address] [address] MCV (RBC) [Entitic vol] 93.8 fL Normal 80.0-99.0 [facility] Comment on above: Performed By: #### T SHR, CMP, GFR #### [address] [address] Platelet 167 10 3/mcL Normal 150-450 [facility] Comment on above: Performed By: #### T SHR, CMP, GFR #### [id number] [place], [place] [address] Platelet mean volume (Bld) [Entitic vol] 8.3 fL Normal 6.6-10.5 [facility] Comment on above: Performed By: #### T SHR, CMP, GFR #### [facility] [address] [place], [place] [address] RBC 4.17 10 6/mcL Normal 4.10-5.30 [facility] Comment on above: Performed By: #### T SHR, CMP, GFR #### [facility] [address] [place], [place] [address] WBC 6.6 10 3/mcL Normal 4.5-10.8 [facility] Comment on above: Performed By: #### T SHR, CMP, GFR #### [id number] [place], [place] [address] LABORATORYOrdered By: SYSTEM SYSTEM on 09-25-2024 Basophils (Bld) [#/Vol] 0.0 103/mcL Normal 0.0 - 0.3 10^3/mcL AO Workflow SS Basophils/100 WBC (Bld) 0.3 % Normal 0.0 - 2.5 % AO Workflow SS Bilirubin [Mass/Vol] 1.4 mg/dL High 0.2 - 1 .0 mg/dL AO ADM SS Comment on above: Interpretive Data: U se of this assay is not recommended for patients undergoing treatment with eltrombopag due to the potential for falsely elevated results. Bilirubin.direct [Mass/Vol] 0.3 mg/dL High 0.0 - 0.2 mg/dL AO ADM SS Comment on above: Interpretive Data: U se of this assay is not recommended for patients undergoing treatment with eltrombopag due to the potential for falsely elevated results. Bilirubin.direct [Mass/Vol] 1.1 mg/dL Invalid Interpretation Code AO Chemistry S Calcium [Mass/Vol] 9.4 mg/dL Normal 8.4 - 10. 2 mg/dL AO ADM SS Chloride [Moles/Vol] 105 mmol/L Normal 98 - 10 7 mmol/L AO ADM SS CO2 [Moles/Vol] 26 mmol/L Normal 23 - 31 mmol/L AO ADM SS Creatinine [Mass/Vol] 1.13 mg/dL High 0.51 - 0.95 mg/dL AO ADM SS Electrolyte Balance 11.0 mEq/L Normal 4.0 - 15 .0 mEq/L AO ADM SS Eosinophil, Absolute 0.1 103/mcL Normal 0.0 - 0 .7 10^3/mcL AO Workflow SS Eosinophils/100 WBC (Bld) 1.8 % Normal 0.0 - 6.0 % AO Workflow SS Erythrocyte distribution width (RBC) [Ratio] 13.6 % Normal 11.5 - 15.5 % AO Workflow SS Estimated Glomerular Filtration Rate 48 ml/min/1.73sqm Invalid Interpretation Code AO Chemistry S Comment on above: Interpretive Data: Stages of Chronic Kidney Disease (CKD) Stage Description eGFR(ml/min/1.73 sq.m.) CKD 1 Normal kidney function or >=90 normal kindney function with possible kidney damage (ex. Proteinuria) CKD 2 Kidney damage with mild loss 60-89 of kidney function CKD 3a Mild to moderate loss of kidney 45-59 function CKD 3b Moderate to severe loss of 30-44 of kindey function CKD 4 Severe loss of kidney function 15-29 CKD 5 Kidney failure <15 Note: (go live 2024) the eGFR calculation was updated to the 2020 CKD-EPI creatinine equation without a race factor to calculate the eGFR results. Glucose [Mass/Vol] 84 mg/dL Normal 83 - 110 mg/dL AO ADM SS Hematocrit (Bld) [Volume fraction] 39.1 % Normal 34.0 - 46.0 % AO Workflow SS Hemoglobin (Bld) [Mass/Vol] 13.3 G/dL Normal 12.0 - 16.0 G/dL AO Workflow SS Lymphocytes (Bld) [#/Vol] 1.5 103/mcL Normal 0.9 - 4.3 10^3/mcL AO Workflow SS Lymphocytes/100 WBC (Bld) 23.2 % Normal 20.0 - 40.0 % AO Workflow SS MCH (RBC) [Entitic mass] 31.9 pg Normal 27.0 - 33.0 pg AO Workflow SS MCHC 34.0 G/dL Normal 32.0 - 36.0 G/dL AO Workflow SS MCV (RBC) [Entitic vol] 93.8 fL Normal 80.0 - 99.0 fL AO Workflow SS Monocytes (Bld) [#/Vol] 0.6 103/mcL Normal 0.1 - 1.4 10^3/mcL AO Workflow SS Monocytes/100 WBC (Bld) 9.1 % Normal 2.0 - 13.0 % AO Workflow SS Neutrophils (Bld) [#/Vol] 4.3 103/mcL Normal 2.3 - 8.1 10^3/mcL AO Workflow SS Neutrophils/100 WBC (Bld) 65.6 % Normal 50.0 - 75.0 % AO Workflow SS Platelet mean volume (Bld) [Entitic vol] 8.3 fL Normal 6.6 - 10.5 fL AO Workflow SS Platelets (Bld) [#/Vol] 167 103/mcL Normal 150 - 450 10^3/mcL AO Workflow SS Potassium [Moles/Vol] 4.4 mmol/L Normal 3.5 - 5.1 mmol/L AO ADM SS RBC (Bld) [#/Vol] 4.17 106/mcL Normal 4.10 - 5.3 0 10^6/mcL AO Workflow SS Sodium [Moles/Vol] 142 mmol/L Normal 136 - 145 mmol/L AO ADM SS TSH Qn 2.24 m[IU]/L Normal 0.36 - 3.74 mcIU/mL AO ADM SS Urea nitrogen [Mass/Vol] 24 mg/dL High 7 - 18 mg/dL AO ADM SS Urea nitrogen/Creatinine [Mass ratio] 21 ratio Normal 7 - 27 ratio AO ADM SS WBC (Bld) [#/Vol] 6.6 103/mcL Normal 4.5 - 10.8 10^3/mcL AO Workflow SS TSHRon 09-25-2024 TSH Qn 2.24 m[IU]/L Normal 0.36-3.74 [facility] Comment on above: Performed By: #### T SHR, CMP, GFR #### [address] [address] .Auto Diffon 09-04-2024 Basophil, Absolute 0.0 10 3/mcL Normal 0.0-0.3 [facility] Comment on above: Performed By: #### A DIFF, CBC, GFR, ANEU, CMP, LIP, MDW #### [id number] [place], [place] [address] Basophils/100 WBC (Bld) 0.4 % Normal 0.0-2.5 [facility] Comment on above: Performed By: #### A DIFF, CBC, GFR, ANEU, CMP, LIP, MDW #### [address] [address] Eosinophil, Absolute 0.1 10 3/mcL Normal 0.0-0.7 [facility] Comment on above: Performed By: #### A DIFF, CBC, GFR, ANEU, CMP, LIP, MDW #### [address] [address] Eosinophils/100 WBC (Bld) 2.4 % Normal 0.0-6.0 [facility] Comment on above: Performed By: #### A DIFF, CBC, GFR, ANEU, CMP, LIP, MDW #### [address] [address] Lymphocyte, Absolute 1.3 10 3/mcL Normal 0.9-4.3 [facility] Comment on above: Performed By: #### A DIFF, CBC, GFR, ANEU, CMP, LIP, MDW #### [address] [address] Lymphocytes/100 WBC (Bld) 24.2 % Normal 20.0-40.0 [facility] Comment on above: Performed By: #### A DIFF, CBC, GFR, ANEU, CMP, LIP, MDW #### [address] [address] Monocyte, Absolute 0.5 10 3/mcL Normal 0.1-1.4 [facility] Comment on above: Performed By: #### A DIFF, CBC, GFR, ANEU, CMP, LIP, MDW #### [address] [address] Monocytes/100 WBC (Bld) 8.4 % Normal 2.0-13.0 [facility] Comment on above: Performed By: #### A DIFF, CBC, GFR, ANEU, CMP, LIP, MDW #### [address] [address] Neutrophils/100 WBC (Bld) 64.6 % Normal 50.0-75.0 [facility] Comment on above: Performed By: #### A DIFF, CBC, GFR, ANEU, CMP, LIP, W #### [address] [address] .GFRon 09-04-2024 Estimated Glomerular Filtration Rate 54 ml/min/1.73sqm Normal [facility] Comment on above: Result Comment: Stages of Chronic Kidney Disease (CKD) Stage Description eGFR(ml/min/1.73 sq.m.) CKD 1 Normal kidney function or >=90 normal kindney function with possible kidney damage (ex. Proteinuria) CKD 2 Kidney damage with mild loss 60-89 of kidney function CKD 3a Mild to moderate loss of kidney 45-59 function CKD 3b Moderate to severe loss of 30-44 of kindey function CKD 4 Severe loss of kidney function 15-29 CKD 5 Kidney failure <15 Note: (go live 2024) the eGFR calculation was updated to the 2020 CKD-EPI creatinine equation without a race factor to calculate the eGFR results. Performed By: #### A DIFF, CBC, GFR, ANEU, CMP, LIP, MDW #### [address] [address] .MDWon 09-04-2024 Monocyte Distribution Width 17.89 Normal 0.00-20.00 [facility] Comment on above: Result Comment: For ED adult patients suspected of sepsis, MDW<=20.0 does not rule out sepsis or risk of sepsis Performed By: #### A DIFF, CBC, GFR, ANEU, CMP, LIP, W #### [address] [address] .NEUABSon 09-04-2024 Neutrophil, Absolute 3.5 10 3/mcL Normal 2.3-8.1 [facility] Comment on above: Performed By: #### A DIFF, CBC, GFR, ANEU, CMP, LIP, MDW #### [address] [address] CBCon 09-04-2024 Erythrocyte distribution width (RBC) [Ratio] 13.7 % Normal 11.5-15.5 [facility] Comment on above: Performed By: #### A DIFF, CBC, GFR, ANEU, CMP, LIP, W #### [address] [address] Hematocrit (Bld) [Volume fraction] 38.2 % Normal 34.0-46.0 [facility] Comment on above: Performed By: #### A DIFF, CBC, GFR, ANEU, CMP, LIP, W #### [address] [address] Hgb 12.9 G/dL Normal 12.0-16.0 [facility] Comment on above: Performed By: #### A DIFF, CBC, GFR, ANEU, CMP, LIP, W #### [address] [address] MCH (RBC) [Entitic mass] 31.6 pg Normal 27.0-33.0 [facility] Comment on above: Performed By: #### A DIFF, CBC, GFR, ANEU, CMP, LIP, W #### [address] [address] MCHC 33.8 G/dL Normal 32.0-36.0 [facility] Comment on above: Performed By: #### A DIFF, CBC, GFR, ANEU, CMP, LIP, MDW #### [address] [address] MCV (RBC) [Entitic vol] 93.6 fL Normal 80.0-99.0 [facility] Comment on above: Performed By: #### A DIFF, CBC, GFR, ANEU, CMP, LIP, W #### [address] [address] Platelet 140 10 3/mcL Low 150-450 [facility] Comment on above: Performed By: #### A DIFF, CBC, GFR, ANEU, CMP, LIP, MDW #### [address] [address] Platelet mean volume (Bld) [Entitic vol] 8.0 fL Normal 6.6-10.5 [facility] Comment on above: Performed By: #### A DIFF, CBC, GFR, ANEU, CMP, LIP, MDW #### [address] [address] RBC 4.08 10 6/mcL Low 4.10-5.30 [facility] Comment on above: Performed By: #### A DIFF, CBC, GFR, ANEU, CMP, LIP, MDW #### [address] [address] WBC 5.5 10 3/mcL Normal 4.5-10.8 [facility] Comment on above: Performed By: #### A DIFF, CBC, GFR, ANEU, CMP, LIP, MDW #### [address] [address] CMPon 09-04-2024 Albumin Level 3.5 G/dL Normal 3.4-4.8 [facility] Comment on above: Performed By: #### A DIFF, CBC, GFR, ANEU, CMP, LIP, MDW #### [address] [address] Albumin/Globulin [Mass ratio] 1.0 {ratio} Low 1.1-2.5 [facility] Comment on above: Performed By: #### A DIFF, CBC, GFR, ANEU, CMP, LIP, MDW #### [address] [address] ALP [Catalytic activity/Vol] 112 U/L Normal 40-135 [facility] Comment on above: Performed By: #### A DIFF, CBC, GFR, ANEU, CMP, LIP, MDW #### [address] [address] ALT [Catalytic activity/Vol] 23 U/L Normal 14-59 [facility] Comment on above: Performed By: #### A DIFF, CBC, GFR, ANEU, CMP, LIP, MDW #### [address] [address] AST [Catalytic activity/Vol] 26 U/L Normal 10-40 [facility] Comment on above: Performed By: #### A DIFF, CBC, GFR, ANEU, CMP, LIP, MDW #### [address] [address] Bili Total 1.2 mg/dL High 0.2-1.0 [facility] Comment on above: Result Comment: Use of this assay is not recommended for patients undergoing treatment with eltrombopag due to the potential for falsely elevated results. Performed By: #### A DIFF, CBC, GFR, ANEU, CMP, LIP, W #### [address] [address] BUN/Creatinine Ratio 22 ratio Normal 7-27 [facility] Comment on above: Performed By: #### A DIFF, CBC, GFR, ANEU, CMP, LIP, W #### [address] [address] Calcium [Mass/Vol] 8.7 mg/dL Normal 8.4-10.2 [facility] Comment on above: Performed By: #### A DIFF, CBC, GFR, ANEU, CMP, LIP, W #### [address] [address] Chloride [Moles/Vol] 106 mmol/L Normal 98-107 [facility] Comment on above: Performed By: #### A DIFF, CBC, GFR, ANEU, CMP, LIP, JEFFERY #### [address] [address] CO2 [Moles/Vol] 26 mmol/L Normal 23-31 [facility] Comment on above: Performed By: #### A DIFF, CBC, GFR, ANEU, CMP, LIP, JEFFERY #### [address] [address] Creatinine [Mass/Vol] 1.03 mg/dL High 0.51-0.95 [facility] Comment on above: Performed By: #### A DIFF, CBC, GFR, ANEU, CMP, LIP, MDW #### [address] [address] Electrolyte Balance 8.0 mEq/L Normal 4.0-15.0 [facility] Comment on above: Performed By: #### A DIFF, CBC, GFR, ANEU, CMP, LIP, W #### [address] [address] Globulin 3.4 G/dL Normal 2.7-4.4 [facility] Comment on above: Performed By: #### A DIFF, CBC, GFR, ANEU, CMP, LIP, W #### [address] [address] Glucose [Mass/Vol] 93 mg/dL Normal 83-110 [facility] Comment on above: Performed By: #### A DIFF, CBC, GFR, ANEU, CMP, LIP, W #### [address] [address] Potassium [Moles/Vol] 4.0 mmol/L Normal 3.5-5.1 [facility] Comment on above: Performed By: #### A DIFF, CBC, GFR, ANEU, CMP, LIP, JEFFERY #### [address] [address] Sodium [Moles/Vol] 140 mmol/L Normal 136-145 [facility] Comment on above: Performed By: #### A DIFF, CBC, GFR, ANEU, CMP, LIP, JEFFERY #### [address] [address] Total Protein 6.9 G/dL Normal 6.4-8.2 [facility] Comment on above: Performed By: #### A DIFF, CBC, GFR, ANEU, CMP, LIP, JEFFERY #### [address] [address] Urea nitrogen [Mass/Vol] 23 mg/dL High 7-18 [facility] Comment on above: Performed By: #### A DIFF, CBC, GFR, ANEU, CMP, LIP, W #### [address] [address] [address] ABD/PELVIS W/ IV CONTRAST ONLYon 09-04-2024 CT ABD/PELVIS W/ IV CONTRAST ONLY ORIGINAL EXAMINATION: CT OF THE ABDOMEN AND PELVIS WITH CONTRAST 09/04/2024 5:19 pm TECHNIQUE: CT of the abdomen and pelvis was performed with the administration of intravenous contrast. Multiplanar reformatted images are provided for review. Automated exposure control, iterative reconstruction, and/or weight based adjustment of the mA/kV was utilized to reduce the radiation dose to as low as reasonably achievable. COMPARISON: 05/23/2019 HISTORY: ORDERING SYSTEM PROVIDED HISTORY: Reason for Exam: rlq pain started today, no n/v, no c/d, limited hx, no ca Abdominal pain, acute, nonlocalized FINDINGS: Lower Chest: Same day CT chest reported separately. Organs: Liver, gallbladder, spleen and adrenal glands are unremarkable. Mild dilation of the pancreatic duct and common bile duct which is nonspecific. Kidneys: Heterogeneously enhancing mass in the left mid pole of the kidney measuring 2.8 x 2.5 cm in the axial plane (series 2, image 42), and 2.7 cm cranio caudally. 4.3 cm left renal cyst. Pelvis: Moderate bladder wall thickening. No pelvic or inguinal lymphadenopathy. GI: Large colonic stool burden. No evidence for small bowel obstruction. Unremarkable appendix. The stomach and several loops of small bowel are decompressed limiting evaluation. No free intraperitoneal air. No abdominal lymphadenopathy. Vasculature: Status post abdominal aortic aneurysm repair with stable lateral dilation of the aorta at the hiatus. Diffuse atherosclerotic calcifications of the abdominal aorta and its branch vessels. Bones: Multilevel degenerative changes of the spine. Mild dextrocurvature of the lumbar spine. Grade 1 retrolisthesis of L1 on L2, L2 on L3, and L3 on L4. Severe degenerative changes of the bilateral hips, left greater than right. 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 Moderate bladder wall thickening. Recommend correlation with urinalysis to exclude cystitis. Large colonic stool burden. I have personally reviewed the images of this examination and agree with the resident's findings and interpretation. Interpreted by: Kuldip Villagomez Preliminary Report By: Ladi Reynolds Electronically signed By Kuldip Villagomez Dictated Date: 09/04/2024 5:56:56 PM Prelim Date: 09/04/2024 6:20:02 PM Sign Date: 09/04/2024 6:20:02 PM Ordering Provider: RA HARTMANN [facility] CT THORAX W/O CONTRASTon CT THORAX W/O CONTRAST ORIGINAL EXAMINATION: CT OF THE CHEST WITHOUT CONTRAST 09/04/2024 3:42 pm TECHNIQUE: CT of the chest was performed without the administration of intravenous contrast. Multiplanar reformatted images are provided for review. Automated exposure control, iterative reconstruction, and/or weight based adjustment of the mA/kV was utilized to reduce the radiation dose to as low as reasonably achievable. COMPARISON: CT thorax 02/27/2023 and 05/23/2019 HISTORY: ORDERING SYSTEM PROVIDED HISTORY: Reason for Exam: shortness of breath, COPD, emphysema shortness of breath, COPD, emphysema FINDINGS: The heart is normal in size. No pericardial thickening or effusion. Coronary atherosclerosis. The main pulmonary arteries normal in caliber. Mild ectasia of the ascending aorta at 4.2 cm. Stable outpouching of the aortic arch at 9 mm (series 2, image 28). 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 Thyroid is atrophic. No axillary, supraclavicular, mediastinal, or hilar adenopathy within the confines of a noncontrast exam. Calcified left hilar lymph nodes from prior granulomatous disease. No endotracheal or main endobronchial lesion. No pneumothorax or pleural effusion. Scattered pleural and parenchymal scarring some which appear nodular and are stable from prior. Severe emphysematous changes. No focal consolidation or pulmonary edema. Scattered calcified granulomas. No new pulmonary nodules. 4.2 cm left midpole simple renal cyst. No additional contributory abnormality within visualized upper abdomen. No acute osseous abnormality. Degenerative changes of the spine. IMPRESSION: No acute finding. Severe emphysematous changes with grossly stable scattered scarring some of which appears nodular. Mildly ectatic ascending thoracic aorta. 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 I have personally reviewed the images of this examination and agree with the resident's findings and interpretation. Interpreted by: Rosana Thorne MD Preliminary Report By: Sony Polanco Electronically signed By Rosana Thorne MD Dictated Date: 09/04/2024 3:52:51 PM Prelim Date: 09/04/2024 4:13:45 PM Sign Date: 09/04/2024 4:13:45 PM Ordering Provider: EDY Henderson [facility] LABORATORYOrdered By: SYSTEM SYSTEM on 09-04-2024 Albumin BCP dye [Mass/Vol] 3.5 G/dL Normal 3.4 - 4.8 G/dL AO ADM SS Albumin/Globulin [Mass ratio] 1.0 {ratio} Low 1.1 - 2.5 ratio AO ADM SS ALP [Catalytic activity/Vol] 112 U/L Normal 40 - 135 U/L AO ADM SS ALT With P-5'-P [Catalytic activity/Vol] 23 U/L Normal 14 - 59 U/L AO ADM SS AST With P-5'-P [Catalytic activity/Vol] 26 U/L Normal 10 - 40 U/L AO ADM SS Basophils (Bld) [#/Vol] 0.0 103/mcL Normal 0.0 - 0.3 10^3/mcL AO Workflow SS Basophils/100 WBC (Bld) 0.4 % Normal 0.0 - 2.5 % AO Workflow SS Bilirubin [Mass/Vol] 1.2 mg/dL High 0.2 - 1 .0 mg/dL AO ADM SS Comment on above: Interpretive Data: U se of this assay is not recommended for patients undergoing treatment with eltrombopag due to the potential for falsely elevated results. Calcium [Mass/Vol] 8.7 mg/dL Normal 8.4 - 10. 2 mg/dL AO ADM SS Chloride [Moles/Vol] 106 mmol/L Normal 98 - 10 7 mmol/L AO ADM SS CO2 [Moles/Vol] 26 mmol/L Normal 23 - 31 mmol/L AO ADM SS Creatinine [Mass/Vol] 1.03 mg/dL High 0.51 - 0.95 mg/dL AO ADM SS Electrolyte Balance 8.0 mEq/L Normal 4.0 - 15 .0 mEq/L AO ADM SS Eosinophil, Absolute 0.1 103/mcL Normal 0.0 - 0 .7 10^3/mcL AO Workflow SS Eosinophils/100 WBC (Bld) 2.4 % Normal 0.0 - 6.0 % AO Workflow SS Erythrocyte distribution width (RBC) [Ratio] 13.7 % Normal 11.5 - 15.5 % AO Workflow SS Estimated Glomerular Filtration Rate 54 ml/min/1.73sqm Invalid Interpretation Code AO Chemistry S Comment on above: Interpretive Data: Stages of Chronic Kidney Disease (CKD) Stage Description eGFR(ml/min/1.73 sq.m.) CKD 1 Normal kidney function or >=90 normal kindney function with possible kidney damage (ex. Proteinuria) CKD 2 Kidney damage with mild loss 60-89 of kidney function CKD 3a Mild to moderate loss of kidney 45-59 function CKD 3b Moderate to severe loss of 30-44 of kindey function CKD 4 Severe loss of kidney function 15-29 CKD 5 Kidney failure <15 Note: (go live 2024) the eGFR calculation was updated to the 2020 CKD-EPI creatinine equation without a race factor to calculate the eGFR results. Globulin 3.4 G/dL Normal 2.7 - 4.4 G/dL AO ADM SS Glucose [Mass/Vol] 93 mg/dL Normal 83 - 110 mg/dL AO ADM SS Hematocrit (Bld) [Volume fraction] 38.2 % Normal 34.0 - 46.0 % AO Workflow SS Hemoglobin (Bld) [Mass/Vol] 12.9 G/dL Normal 12.0 - 16.0 G/dL AO Workflow SS Lipase [Catalytic activity/Vol] 19 U/L Normal 16 - 77 U/L AO ADM SS Lymphocytes (Bld) [#/Vol] 1.3 103/mcL Normal 0.9 - 4.3 10^3/mcL AO Workflow SS Lymphocytes/100 WBC (Bld) 24.2 % Normal 20.0 - 40.0 % AO Workflow SS MCH (RBC) [Entitic mass] 31.6 pg Normal 27.0 - 33.0 pg AO Workflow SS MCHC 33.8 G/dL Normal 32.0 - 36.0 G/dL AO Workflow SS MCV (RBC) [Entitic vol] 93.6 fL Normal 80.0 - 99.0 fL AO Workflow SS Monocyte distribution width Auto (Bld) [Entitic vol] 17.89 1 Normal 0.00 - 20.00 AO Workflow SS Comment on above: Result Comment: For ED adult patients suspected of sepsis, MDW<=20.0 does not rule out sepsis or risk of sepsis Monocytes (Bld) [#/Vol] 0.5 103/mcL Normal 0.1 - 1.4 10^3/mcL AO Workflow SS Monocytes/100 WBC (Bld) 8.4 % Normal 2.0 - 13.0 % AO Workflow SS Neutrophils (Bld) [#/Vol] 3.5 103/mcL Normal 2.3 - 8.1 10^3/mcL AO Workflow SS Neutrophils/100 WBC (Bld) 64.6 % Normal 50.0 - 75.0 % AO Workflow SS Platelet mean volume (Bld) [Entitic vol] 8.0 fL Normal 6.6 - 10.5 fL AO Workflow SS Platelets (Bld) [#/Vol] 140 103/mcL Low 150 - 450 10^3/mcL AO Workflow SS Potassium [Moles/Vol] 4.0 mmol/L Normal 3.5 - 5.1 mmol/L AO ADM SS Protein [Mass/Vol] 6.9 G/dL Normal 6.4 - 8.2 G/dL AO ADM SS RBC (Bld) [#/Vol] 4.08 106/mcL Low 4.10 - 5.3 0 10^6/mcL AO Workflow SS Sodium [Moles/Vol] 140 mmol/L Normal 136 - 145 mmol/L AO ADM SS Urea nitrogen [Mass/Vol] 23 mg/dL High 7 - 18 mg/dL AO ADM SS Urea nitrogen/Creatinine [Mass ratio] 22 ratio Normal 7 - 27 ratio AO ADM SS WBC (Bld) [#/Vol] 5.5 103/mcL Normal 4.5 - 10.8 10^3/mcL AO Workflow SS LABORATORYOrdered By: Gaston Crespo on 09-04-2024 Appearance (U) Clear (09/04/24 4:15 PM) Normal Clear AO Auto Urine SS Bilirubin Ql (U) Negative (09/04/24 4:15 PM) Normal Negative AO Auto Urine SS Color (U) Yellow (09/04/24 4:15 PM) Normal AO Auto Urine SS Glucose Test strip (U) [Mass/Vol] Negative Normal Negative AO Auto Urine SS Hemoglobin Auto test strip (U) [Mass/Vol] Negative (09/04/24 4:15 PM) Normal Negative AO Auto Urine SS Ketones Ql (U) Negative Normal Negative AO Auto Ur ine SS UA Leuk Est Negative (09/04/24 4:15 PM) Normal Negative AO Auto Urine SS UA Nitrite Negative (09/04/24 4:15 PM) Normal Negative AO Auto Urine SS UA pH 6.0 (09/04/24 4:15 PM) Normal 5.0 - 8.0 AO Auto Urine SS UA Protein Negative Normal Negative AO Auto Urine SS UA Spec Grav 1.020 (09/04/24 4:15 PM) Normal 1.015-1.025 AO Auto Urine SS UA Specimen Type Void (09/04/24 4:15 PM) Normal AO Auto Urine SS UA Urobilinogen 0.2 E.U./dL Normal 0.2-1.0 AO Auto Urine SS LIPon 09-04-2024 Lipase Level 19 U/L Normal 16-77 [facility] Comment on above: Performed By: #### A DIFF, CBC, GFR, ANEU, CMP, LIP, MDW #### [id number] [place], [place] [address] MRI BRAIN W/ + W/O CONTRASTo n 09-04-2024 MRI BRAIN W/ + W/O CONTRAST ORIGINAL EXAMINATION: MR Brain with intravenous contrast TECHNIQUE: Multiplanar multi sequential MRI of the brain without and with intravenous contrast per standard protocol. COMPARISON: None. HISTORY: ORDERING SYSTEM PROVIDED HISTORY: Reason for Exam: LIGHTHEADEDNESS, RULE OUT ANEURYSM, MALIGNANCY AND STROKE FINDINGS: Parenchyma: No acute hemorrhage, acute/early subacute infarction, mass, or abnormal enhancement is seen. The francisco-white matter junctions are maintained. Mild generalized parenchymal volume loss is present. A remote lacunar infarct of the left cerebellum is present. There are no space occupying intra-axial masses or extra-axial fluid collections. Punctate FLAIR hyperintensities in the subcortical, periventricular, and deep white matter statistically reflect mild chronic microvascular white matter ischemic disease. No remote hemorrhagic blood products are present. Ventricles: No ventricular enlargement or ventricular effacement. Orbits: Normal. Bilateral lens implants. Major intracranial flow voids: Preserved. Paranasal sinuses: Small bilateral maxillary sinus retention cysts or polyps. Mastoids and middle ears: Clear. Bones: Normal. Extracranial soft tissues: Normal. IMPRESSION: 1. No acute intracranial pathology. 2. Mild generalized parenchymal volume loss and chronic microvascular white matter ischemic disease. 3. Remote left cerebellar lacunar infarct. Interpreted by: Meryl Ferrer MD Preliminary Report By: Meryl Ferrer MD Electronically signed By Meryl Ferrer MD Dictated Date: 09/04/2024 3:39:25 PM Prelim Date: 09/04/2024 3:44:14 PM Sign Date: 09/04/2024 3:44:14 PM Ordering Provider: EDY SALOMON Normal [facility] UAon 09-04-2024 Color (U) Yellow Normal [facility] Comment on above: Performed By: #### A DIFF, CBC, GFR, ANEU, CMP, LIP, MDW #### [address] [address] Glucose (U) [Mass/Vol] Negative Normal Negative [facility] Comment on above: Performed By: #### A DIFF, CBC, GFR, ANEU, CMP, LIP, MDW #### [address] [address] Ketones Ql (U) Negative Normal Negative [facility] Comment on above: Performed By: #### A DIFF, CBC, GFR, ANEU, CMP, LIP, MDW #### [place] [address] UA Appear Clear Normal Clear [facility] Comment on above: Performed By: #### A DIFF, CBC, GFR, ANEU, CMP, LIP, MDW #### [address] [address] UA Blood Negative Normal Negative [facility] Comment on above: Performed By: #### A DIFF, CBC, GFR, ANEU, CMP, LIP, MDW #### [address] [address] UA Leuk Est Negative Normal Negative [facility] Comment on above: Performed By: #### A DIFF, CBC, GFR, ANEU, CMP, LIP, MDW #### [address] [address] UA Nitrite Negative Normal Negative [facility] Comment on above: Performed By: #### A DIFF, CBC, GFR, ANEU, CMP, LIP, MDW #### [address] [address] UA pH 6.0 Normal 5.0 - 8.0 [facility] Comment on above: Performed By: #### A DIFF, CBC, GFR, ANEU, CMP, LIP, MDW #### [address] [address] UA Protein Negative Normal Negative [facility] Comment on above: Performed By: #### A DIFF, CBC, GFR, ANEU, CMP, LIP, MDW #### [address] [address] UA Spec Grav 1.020 Normal 1.015-1.025 [facility] Comment on above: Performed By: #### A DIFF, CBC, GFR, ANEU, CMP, LIP, MDW #### [address] [address] UA Specimen Type Void Normal [facility] Comment on above: Performed By: #### A DIFF, CBC, GFR, ANEU, CMP, LIP, MDW #### [address] [address] UA Urobilinogen 0.2 E.U./dL Normal 0.2-1.0 [facility] Comment on above: Performed By: #### A DIFF, CBC, GFR, ANEU, CMP, LIP, MDW #### [address] [address] Urobilinogen (U) [Mass/Vol] Negative Normal Negative [facility] Comment on above: Performed By: #### A DIFF, CBC, GFR, ANEU, CMP, LIP, MDW #### [address] [address] .Auto Diffon 08-29-2024 Basophil, Absolute 0.0 10 3/mcL Normal 0.0-0.3 [facility] Comment on above: Performed By: #### T SHR, CMP, GFR #### [address] [address] Basophils/100 WBC (Bld) 0.4 % Normal 0.0-2.5 [facility] Comment on above: Performed By: #### T SHR, CMP, GFR #### [address] [address] Eosinophil, Absolute 0.1 10 3/mcL Normal 0.0-0.7 [facility] Comment on above: Performed By: #### T SHR, CMP, GFR #### [address] [address] Eosinophils/100 WBC (Bld) 1.6 % Normal 0.0-6.0 [facility] Comment on above: Performed By: #### T SHR, CMP, GFR #### [address] [address] Lymphocyte, Absolute 1.2 10 3/mcL Normal 0.9-4.3 [facility] Comment on above: Performed By: #### T SHR, CMP, GFR #### [address] [address] Lymphocytes/100 WBC (Bld) 16.7 % Low 20.0-40.0 [facility] Comment on above: Performed By: #### T LAUREN, CMP, GFR #### [address] [address] Monocyte, Absolute 0.6 10 3/mcL Normal 0.1-1.4 [facility] Comment on above: Performed By: #### T LAUREN, CMP, GFR #### [address] [address] Monocytes/100 WBC (Bld) 7.5 % Normal 2.0-13.0 [facility] Comment on above: Performed By: #### T LAUREN, CMP, GFR #### [address] [address] Neutrophils/100 WBC (Bld) 73.8 % Normal 50.0-75.0 [facility] Comment on above: Performed By: #### T SHR, CMP, GFR #### [address] [address] .GFRon 08-29-2024 Estimated Glomerular Filtration Rate 52 ml/min/1.73sqm Normal [facility] Comment on above: Result Comment: Stages of Chronic Kidney Disease (CKD) Stage Description eGFR(ml/min/1.73 sq.m.) CKD 1 Normal kidney function or >=90 normal kindney function with possible kidney damage (ex. Proteinuria) CKD 2 Kidney damage with mild loss 60-89 of kidney function CKD 3a Mild to moderate loss of kidney 45-59 function CKD 3b Moderate to severe loss of 30-44 of kindey function CKD 4 Severe loss of kidney function 15-29 CKD 5 Kidney failure <15 Note: (go live 2024) the eGFR calculation was updated to the 2020 CKD-EPI creatinine equation without a race factor to calculate the eGFR results. Performed By: #### T LAUREN, CMP, GFR #### [address] [address] .NEUABSon 08-29-2024 Neutrophil, Absolute 5.5 10 3/mcL Normal 2.3-8.1 [facility] Comment on above: Performed By: #### T SHR, CMP, GFR #### [address] [address] CBCon 08-29-2024 Erythrocyte distribution width (RBC) [Ratio] 13.6 % Normal 11.5-15.5 [facility] Comment on above: Performed By: #### T LAUREN, CMP, GFR #### [place] [id number] Hematocrit (Bld) [Volume fraction] 42.6 % Normal 34.0-46.0 [facility] Comment on above: Performed By: #### T SHR, CMP, GFR #### [place] [id number] Hgb 14.4 G/dL Normal 12.0-16.0 [facility] Comment on above: Performed By: #### T SHR, CMP, GFR #### [address] [address] MCH (RBC) [Entitic mass] 31.7 pg Normal 27.0-33.0 [facility] Comment on above: Performed By: #### T SHR, CMP, GFR #### [place] [id number] MCHC 33.8 G/dL Normal 32.0-36.0 [facility] Comment on above: Performed By: #### T SHR, CMP, GFR #### [address] [address] MCV (RBC) [Entitic vol] 93.7 fL Normal 80.0-99.0 [facility] Comment on above: Performed By: #### T SHR, CMP, GFR #### [address] [address] Platelet 169 10 3/mcL Normal 150-450 [facility] Comment on above: Performed By: #### T SHR, CMP, GFR #### [address] [address] Platelet mean volume (Bld) [Entitic vol] 8.1 fL Normal 6.6-10.5 [facility] Comment on above: Performed By: #### T SHR, CMP, GFR #### [address] [address] RBC 4.55 10 6/mcL Normal 4.10-5.30 [facility] Comment on above: Performed By: #### T SHR, CMP, GFR #### [address] [address] WBC 7.4 10 3/mcL Normal 4.5-10.8 [facility] Comment on above: Performed By: #### T SHR, CMP, GFR #### [address] [address] CMPon 08-29-2024 Albumin Level 4.0 G/dL Normal 3.4-4.8 [facility] Comment on above: Performed By: #### T SHR, CMP, GFR #### [address] [address] Albumin/Globulin [Mass ratio] 1.0 {ratio} Low 1.1-2.5 [facility] Comment on above: Performed By: #### T SHR, CMP, GFR #### [address] [address] ALP [Catalytic activity/Vol] 120 U/L Normal 40-135 [facility] Comment on above: Performed By: #### T SHR, CMP, GFR #### [address] [address] ALT [Catalytic activity/Vol] 29 U/L Normal 14-59 [facility] Comment on above: Performed By: #### T SHR, CMP, GFR #### [address] [address] AST [Catalytic activity/Vol] 29 U/L Normal 10-40 [facility] Comment on above: Performed By: #### T SHR, CMP, GFR #### [address] [address] Bili Total 1.8 mg/dL High 0.2-1.0 [facility] Comment on above: Result Comment: Use of this assay is not recommended for patients undergoing treatment with eltrombopag due to the potential for falsely elevated results. Performed By: #### T SHR, CMP, GFR #### [place] [address] BUN/Creatinine Ratio 22 ratio Normal 7-27 [facility] Comment on above: Performed By: #### T SHR, CMP, GFR #### [place] [address] Calcium [Mass/Vol] 9.4 mg/dL Normal 8.4-10.2 [facility] Comment on above: Performed By: #### T SHR, CMP, GFR #### [place] [address] Chloride [Moles/Vol] 107 mmol/L Normal 98-107 [facility] Comment on above: Performed By: #### T SHR, CMP, GFR #### [place] [address] CO2 [Moles/Vol] 30 mmol/L Normal 23-31 [facility] Comment on above: Performed By: #### T SHR, CMP, GFR #### [place] [address] Creatinine [Mass/Vol] 1.06 mg/dL High 0.51-0.95 [facility] Comment on above: Performed By: #### T SHR, CMP, GFR #### [place] [address] Electrolyte Balance 8.0 mEq/L Normal 4.0-15.0 [facility] Comment on above: Performed By: #### T SHR, CMP, GFR #### [address] [address] Globulin 4.2 G/dL Normal 2.7-4.4 [facility] Comment on above: Performed By: #### T SHR, CMP, GFR #### [address] [address] Glucose [Mass/Vol] 121 mg/dL High 83-110 [facility] Comment on above: Performed By: #### T SHR, CMP, GFR #### [address] [address] Potassium [Moles/Vol] 3.8 mmol/L Normal 3.5-5.1 [facility] Comment on above: Performed By: #### T SHR, CMP, GFR #### [address] [address] Sodium [Moles/Vol] 145 mmol/L Normal 136-145 [facility] Comment on above: Performed By: #### T SHR, CMP, GFR #### [address] [address] Total Protein 8.2 G/dL Normal 6.4-8.2 [facility] Comment on above: Performed By: #### T SHR, CMP, GFR #### [address] [address] Urea nitrogen [Mass/Vol] 23 mg/dL High 7-18 [facility] Comment on above: Performed By: #### T SHR, CMP, GFR #### [address] [address] LABORATORYOrdered By: SYSTEM SYSTEM on 08-29-2024 25-hydroxyvitamin D3 [Mass/Vol] 37.8 ng/mL Invalid Interpretation Code AO ADM SS Comment on above: Interpretive Data: I nterpretive Values Based on Total 25(OH) Vitamin D: Deficient <20 ng/mL Insufficient 20 - <30 ng/mL Sufficient 30-100 ng/mL Albumin BCP dye [Mass/Vol] 4.0 G/dL Normal 3.4 - 4.8 G/dL AO ADM SS Albumin/Globulin [Mass ratio] 1.0 {ratio} Low 1.1 - 2.5 ratio AO ADM SS ALP [Catalytic activity/Vol] 120 U/L Normal 40 - 135 U/L AO ADM SS ALT With P-5'-P [Catalytic activity/Vol] 29 U/L Normal 14 - 59 U/L AO ADM SS AST With P-5'-P [Catalytic activity/Vol] 29 U/L Normal 10 - 40 U/L AO ADM SS Basophils (Bld) [#/Vol] 0.0 103/mcL Normal 0.0 - 0.3 10^3/mcL AO Workflow SS Basophils/100 WBC (Bld) 0.4 % Normal 0.0 - 2.5 % AO Workflow SS Bilirubin [Mass/Vol] 1.8 mg/dL High 0.2 - 1 .0 mg/dL AO ADM SS Comment on above: Interpretive Data: U se of this assay is not recommended for patients undergoing treatment with eltrombopag due to the potential for falsely elevated results. Calcium [Mass/Vol] 9.4 mg/dL Normal 8.4 - 10. 2 mg/dL AO ADM SS Chloride [Moles/Vol] 107 mmol/L Normal 98 - 10 7 mmol/L AO ADM SS CO2 [Moles/Vol] 30 mmol/L Normal 23 - 31 mmol/L AO ADM SS Creatinine [Mass/Vol] 1.06 mg/dL High 0.51 - 0.95 mg/dL AO ADM SS Electrolyte Balance 8.0 mEq/L Normal 4.0 - 15 .0 mEq/L AO ADM SS Eosinophil, Absolute 0.1 103/mcL Normal 0.0 - 0 .7 10^3/mcL AO Workflow SS Eosinophils/100 WBC (Bld) 1.6 % Normal 0.0 - 6.0 % AO Workflow SS Erythrocyte distribution width (RBC) [Ratio] 13.6 % Normal 11.5 - 15.5 % AO Workflow SS Estimated Glomerular Filtration Rate 52 ml/min/1.73sqm Invalid Interpretation Code AO Chemistry S Comment on above: Interpretive Data: Stages of Chronic Kidney Disease (CKD) Stage Description eGFR(ml/min/1.73 sq.m.) CKD 1 Normal kidney function or >=90 normal kindney function with possible kidney damage (ex. Proteinuria) CKD 2 Kidney damage with mild loss 60-89 of kidney function CKD 3a Mild to moderate loss of kidney 45-59 function CKD 3b Moderate to severe loss of 30-44 of kindey function CKD 4 Severe loss of kidney function 15-29 CKD 5 Kidney failure <15 Note: (go live 2024) the eGFR calculation was updated to the 2020 CKD-EPI creatinine equation without a race factor to calculate the eGFR results. Globulin 4.2 G/dL Normal 2.7 - 4.4 G/dL AO ADM SS Glucose [Mass/Vol] 121 mg/dL High 83 - 110 mg/dL AO ADM SS Hematocrit (Bld) [Volume fraction] 42.6 % Normal 34.0 - 46.0 % AO Workflow SS Hemoglobin (Bld) [Mass/Vol] 14.4 G/dL Normal 12.0 - 16.0 G/dL AO Workflow SS Lymphocytes (Bld) [#/Vol] 1.2 103/mcL Normal 0.9 - 4.3 10^3/mcL AO Workflow SS Lymphocytes/100 WBC (Bld) 16.7 % Low 20.0 - 40.0 % AO Workflow SS Magnesium [Mass/Vol] 2.3 mg/dL Normal 1.8 - 2 .4 mg/dL AO ADM SS MCH (RBC) [Entitic mass] 31.7 pg Normal 27.0 - 33.0 pg AO Workflow SS MCHC 33.8 G/dL Normal 32.0 - 36.0 G/dL AO Workflow SS MCV (RBC) [Entitic vol] 93.7 fL Normal 80.0 - 99.0 fL AO Workflow SS Monocytes (Bld) [#/Vol] 0.6 103/mcL Normal 0.1 - 1.4 10^3/mcL AO Workflow SS Monocytes/100 WBC (Bld) 7.5 % Normal 2.0 - 13.0 % AO Workflow SS Natriuretic peptide.B prohormone N-Terminal [Mass/Vol] 384 pg/mL Normal 0 - 450 pg/mL AO ADM SS Comment on above: Interpretive Data: N T-proBNP results of less than 300 pg/mL effectively rules out acute congestive heart failure with 99% negative predictive value. Neutrophils (Bld) [#/Vol] 5.5 103/mcL Normal 2.3 - 8.1 10^3/mcL AO Workflow SS Neutrophils/100 WBC (Bld) 73.8 % Normal 50.0 - 75.0 % AO Workflow SS Platelet mean volume (Bld) [Entitic vol] 8.1 fL Normal 6.6 - 10.5 fL AO Workflow SS Platelets (Bld) [#/Vol] 169 103/mcL Normal 150 - 450 10^3/mcL AO Workflow SS Potassium [Moles/Vol] 3.8 mmol/L Normal 3.5 - 5.1 mmol/L AO ADM SS Protein [Mass/Vol] 8.2 G/dL Normal 6.4 - 8.2 G/dL AO ADM SS RBC (Bld) [#/Vol] 4.55 106/mcL Normal 4.10 - 5.3 0 10^6/mcL AO Workflow SS Sodium [Moles/Vol] 145 mmol/L Normal 136 - 145 mmol/L AO ADM SS TSH Qn 2.74 m[IU]/L Normal 0.36 - 3.74 mcIU/mL AO ADM SS Urea nitrogen [Mass/Vol] 23 mg/dL High 7 - 18 mg/dL AO ADM SS Urea nitrogen/Creatinine [Mass ratio] 22 ratio Normal 7 - 27 ratio AO ADM SS WBC (Bld) [#/Vol] 7.4 103/mcL Normal 4.5 - 10.8 10^3/mcL AO Workflow SS LABORATORYOrdered By: Edelmira Burton on 08-29-2024 Cholesterol [Mass/Vol] 139 mg/dL Normal 0 - 200 mg/dL AO ADM SS Comment on above: Interpretive Data: C holesterol Reference Interval: Less than 200 Desirable 200-239 Borderline high risk 240 and above High risk Cholesterol in HDL [Mass/Vol] 64 mg/dL High 40 - 60 mg/dL AO ADM SS Cholesterol in LDL [Mass/Vol] 54 mg/dL Normal 0 - 130 mg/dL AO ADM SS Triglyceride [Mass/Vol] 103 mg/dL Normal 0 - 150 mg/dL AO ADM SS Comment on above: Interpretive Data: T riglyceride Reference Interval: Less than 150 Normal 150-199 Borderline high risk 200-499 High risk 500 or higher Very high risk LIPIDon 08-29-2024 Cholesterol [Mass/Vol] 139 mg/dL Normal 0-200 [facility] Comment on above: Result Comment: Chol esterol Reference Interval: Less than 200 Desirable 200-239 Borderline high risk 240 and above High risk Performed By: #### T SHR, CMP, GFR #### [address] [address] Cholesterol in HDL [Mass/Vol] 64 mg/dL High 40-60 [facility] Comment on above: Performed By: #### T SHR, CMP, GFR #### [address] [address] Cholesterol in LDL [Mass/Vol] 54 mg/dL Normal 0-130 [facility] Comment on above: Performed By: #### T SHR, CMP, GFR #### [address] [address] Triglyceride [Mass/Vol] 103 mg/dL Normal 0-150 [facility] Comment on above: Result Comment: Trig lyceride Reference Interval: Less than 150 Normal 150-199 Borderline high risk 200-499 High risk 500 or higher Very high risk Performed By: #### T SHR, CMP, GFR #### [address] [address] MGon 08-29-2024 Magnesium [Mass/Vol] 2.3 mg/dL Normal 1.8-2.4 [facility] Comment on above: Performed By: #### T SHR, CMP, GFR #### [address] [address] PBNPon 08-29-2024 Natriuretic peptide B (Bld) [Mass/Vol] 384 pg/mL Normal 0-450 [facility] Comment on above: Result Comment: NT-p roBNP results of less than 300 pg/mL effectively rules out acute congestive heart failure with 99% negative predictive value. Performed By: #### T SHR, CMP, GFR #### [address] [address] TSHRon 08-29-2024 TSH Qn 2.74 m[IU]/L Normal 0.36-3.74 [facility] Comment on above: Performed By: #### T SHR, CMP, GFR #### [address] [address] VIDHon 08-29-2024 Vit. D 25-Hydroxy 37.8 ng/mL Normal [facility] Comment on above: Result Comment: Inte rpretive Values Based on Total 25(OH) Vitamin D: Deficient <20 ng/mL Insufficient 20 - <30 ng/mL Sufficient 30-100 ng/mL Performed By: #### T SHR, CMP, GFR #### [address] [address] .Auto Diffon 02-13-2024 Basophil, Absolute 0.0 10 3/mcL Normal 0.0-0.2 [facility] Comment on above: Performed By: #### A DIFF, CBC, GFR, ANEU, CMP, LIP, MDW #### [address] [address] Basophils/100 WBC (Bld) 0.5 % Normal 0.0-2.5 [facility] Comment on above: Performed By: #### A DIFF, CBC, GFR, ANEU, CMP, LIP, MDW #### [address] [address] Eosinophil, Absolute 0.1 10 3/mcL Normal 0.0-0.7 [facility] Comment on above: Performed By: #### A DIFF, CBC, GFR, ANEU, CMP, LIP, MDW #### [address] [address] Eosinophils/100 WBC (Bld) 1.6 % Normal 0.0-7.0 [facility] Comment on above: Performed By: #### A DIFF, CBC, GFR, ANEU, CMP, LIP, MDW #### [address] [address] Lymphocyte, Absolute 1.4 10 3/mcL Normal 0.9-4.3 [facility] Comment on above: Performed By: #### A DIFF, CBC, GFR, ANEU, CMP, LIP, MDW #### [address] [address] Lymphocytes/100 WBC (Bld) 21.3 % Normal 20.0-40.0 [facility] Comment on above: Performed By: #### A DIFF, CBC, GFR, ANEU, CMP, LIP, MDW #### [address] [address] Monocyte, Absolute 0.6 10 3/mcL Normal 0.1-1.4 [facility] Comment on above: Performed By: #### A DIFF, CBC, GFR, ANEU, CMP, LIP, MDW #### [address] [address] Monocytes/100 WBC (Bld) 8.3 % Normal 2.0-13.0 [facility] Comment on above: Performed By: #### A DIFF, CBC, GFR, ANEU, CMP, LIP, MDW #### [address] [address] Neutrophils/100 WBC (Bld) 68.3 % Normal 50.0-75.0 [facility] Comment on above: Performed By: #### A DIFF, CBC, GFR, ANEU, CMP, LIP, MDW #### [address] [address] .NEUABSon 02-13-2024 Neutrophil, Absolute 4.6 10 3/mcL Normal 2.3-8.1 [facility] Comment on above: Performed By: #### A DIFF, CBC, GFR, ANEU, CMP, LIP, MDW #### [address] [address] BD BONE DENSITY DEXA AXIAL S KELETONon 02-13-2024 BD BONE DENSITY DEXA AXIAL SKELETON ORIGINAL EXAMINATION: BONE DENSITOMETRY 02/13/2024 1:43 pm TECHNIQUE: A bone density dual x-ray absorptiometry (DEXA) scan was performed of the lumbar spine and left hip on a Hologic system. COMPARISON: None. HISTORY: ORDERING SYSTEM PROVIDED HISTORY: Reason for Exam: Osteoporosis Screening Postmenopausal. FINDINGS: LEFT HIP: The bone mineral density in the total hip is measured at 0.711 g/cm2 corresponding to a T-score of -1.9. This is within the osteopenic range by WHO criteria. The bone mineral density of the femoral neck is measured at 0.732 g/cm2 corresponding to a T-score of -1.1. This is within the osteopenic range by WHO criteria. Lumbar spine: The bone mineral density of the lumbar spine, L1 through L4 is measured at 1.158 g/cm2 corresponding to a T-score of 1.0. This is within the normal range by WHO criteria. 10 year fracture risk: Major osteoporotic fracture, 11%. Hip fracture, 2.6%. IMPRESSION: Osteopenia by WHO criteria. Interpreted by: Dunia Pearce Preliminary Report By: Dunia Pearce Electronically signed By Dunia Pearce Dictated Date: 02/13/2024 2:30:04 PM Prelim Date: 02/13/2024 2:32:49 PM Sign Date: 02/13/2024 2:32:49 PM Ordering Provider: EDY Henderson [facility] CBCon 02-13-2024 Erythrocyte distribution width (RBC) [Ratio] 13.6 % Normal 11.5-15.5 [facility] Comment on above: Performed By: #### A DIFF, CBC, GFR, ANEU, CMP, JEFFERY GARCIA #### [address] [address] Hematocrit (Bld) [Volume fraction] 41.0 % Normal 34.0-46.0 [facility] Comment on above: Performed By: #### A DIFF, CBC, GFR, ANEU, CMP, JEFFERY GARCIA #### [address] [address] Hgb 14.1 G/dL Normal 12.0-16.0 [facility] Comment on above: Performed By: #### A DIFF, CBC, GFR, ANEU, CMP, JEFFERY GARCIA #### [address] [address] MCH (RBC) [Entitic mass] 32.2 pg Normal 27.0-33.0 [facility] Comment on above: Performed By: #### A DIFF, CBC, GFR, ANEU, CMP, JEFFERY GARCIA #### [address] [address] MCHC 34.3 G/dL Normal 32.0-36.0 [facility] Comment on above: Performed By: #### A DIFF, CBC, GFR, ANEU, CMP, LIP, W #### [address] [address] MCV (RBC) [Entitic vol] 93.9 fL Normal 80.0-99.0 [facility] Comment on above: Performed By: #### A DIFF, CBC, GFR, ANEU, CMP, LIP, JEFFERY #### [place] [id number] Platelet 148 10 3/mcL Low 150-450 [facility] Comment on above: Performed By: #### A DIFF, CBC, GFR, ANEU, CMP, LIP, W #### [place] [address] Platelet mean volume (Bld) [Entitic vol] 8.4 fL Normal 6.6-10.5 [facility] Comment on above: Performed By: #### A DIFF, CBC, GFR, ANEU, CMP, RADHA, JEFFERY #### [place] [address] RBC 4.37 10 6/mcL Normal 4.10-5.30 [facility] Comment on above: Performed By: #### A DIFF, CBC, GFR, ANEU, CMP, JEFFERY GARCIA #### [place] [id number] WBC 6.7 10 3/mcL Normal 4.5-10.8 [facility] Comment on above: Performed By: #### A DIFF, CBC, GFR, ANEU, CMP, LIP, JEFFERY #### [place] [id number] LABORATORYOrdered By: SYSTEM SYSTEM on 02-13-2024 Basophils (Bld) [#/Vol] 0.0 103/mcL Normal 0.0 - 0.2 10^3/mcL AO Workflow SS Basophils/100 WBC (Bld) 0.5 % Normal 0.0 - 2.5 % AO Workflow SS Eosinophil, Absolute 0.1 103/mcL Normal 0.0 - 0 .7 10^3/mcL AO Workflow SS Eosinophils/100 WBC (Bld) 1.6 % Normal 0.0 - 7.0 % AO Workflow SS Erythrocyte distribution width (RBC) [Ratio] 13.6 % Normal 11.5 - 15.5 % AO Workflow SS Hematocrit (Bld) [Volume fraction] 41.0 % Normal 34.0 - 46.0 % AO Workflow SS Hemoglobin (Bld) [Mass/Vol] 14.1 G/dL Normal 12.0 - 16.0 G/dL AO Workflow SS Lymphocytes (Bld) [#/Vol] 1.4 103/mcL Normal 0.9 - 4.3 10^3/mcL AO Workflow SS Lymphocytes/100 WBC (Bld) 21.3 % Normal 20.0 - 40.0 % AO Workflow SS MCH (RBC) [Entitic mass] 32.2 pg Normal 27.0 - 33.0 pg AO Workflow SS MCHC 34.3 G/dL Normal 32.0 - 36.0 G/dL AO Workflow SS MCV (RBC) [Entitic vol] 93.9 fL Normal 80.0 - 99.0 fL AO Workflow SS Monocytes (Bld) [#/Vol] 0.6 103/mcL Normal 0.1 - 1.4 10^3/mcL AO Workflow SS Monocytes/100 WBC (Bld) 8.3 % Normal 2.0 - 13.0 % AO Workflow SS Natriuretic peptide.B prohormone N-Terminal [Mass/Vol] 669 pg/mL High 0 - 450 pg/mL AO ADM SS Comment on above: Interpretive Data: N T-proBNP results of less than 300 pg/mL effectively rules out acute congestive heart failure with 99% negative predictive value. Neutrophils (Bld) [#/Vol] 4.6 103/mcL Normal 2.3 - 8.1 10^3/mcL AO Workflow SS Neutrophils/100 WBC (Bld) 68.3 % Normal 50.0 - 75.0 % AO Workflow SS Platelet mean volume (Bld) [Entitic vol] 8.4 fL Normal 6.6 - 10.5 fL AO Workflow SS Platelets (Bld) [#/Vol] 148 103/mcL Low 150 - 450 10^3/mcL AO Workflow SS RBC (Bld) [#/Vol] 4.37 106/mcL Normal 4.10 - 5.3 0 10^6/mcL AO Workflow SS WBC (Bld) [#/Vol] 6.7 103/mcL Normal 4.5 - 10.8 10^3/mcL AO Workflow SS PBNPon 02-13-2024 Natriuretic peptide B (Bld) [Mass/Vol] 669 pg/mL High 0-450 [facility] Comment on above: Result Comment: NT-p roBNP results of less than 300 pg/mL effectively rules out acute congestive heart failure with 99% negative predictive value. Performed By: #### A DIFF, CBC, GFR, ANEU, CMP, LIP, MDW #### [place] [id number] [place], [place] [address] .GFRon 12-23-2023 GFR 50 ml/min/1.73sqm [facility] Comment on above: Result Comment: GFR Population mean for , Non- Americans Ages 20-29 = 116 mL/min/1.73 sq.m. Ages 30-39 = 107 mL/min/1.73 sq.m. Ages 40-49 = 99 mL/min/1.73 sq.m. Ages 50-59 = 93 mL/min/1.73 sq.m. Ages 60-69 = 85 mL/min/1.73 sq.m. Ages 70+ = 75 mL/min/1.73 sq.m. Chronic Kidney Disease: Less than 60 mL/min/1.73 square meters End Stage Renal Disease: Less than 15 mL/min/1.73 square meters Performed By: #### T SHR, CMP, GFR #### [address] [address] GFR Non- 41 ml/min/1.73sqm Normal [facility] Comment on above: Result Comment: GFR Population mean for , Non- Americans Ages 20-29 = 116 mL/min/1.73 sq.m. Ages 30-39 = 107 mL/min/1.73 sq.m. Ages 40-49 = 99 mL/min/1.73 sq.m. Ages 50-59 = 93 mL/min/1.73 sq.m. Ages 60-69 = 85 mL/min/1.73 sq.m. Ages 70+ = 75 mL/min/1.73 sq.m. Chronic Kidney Disease: Less than 60 mL/min/1.73 square meters End Stage Renal Disease: Less than 15 mL/min/1.73 square meters Performed By: #### T SHR, CMP, GFR #### [address] [address] CMPon 12-23-2023 Albumin Level 3.8 G/dL Normal 3.4-4.8 [facility] Comment on above: Performed By: #### T SHR, CMP, GFR #### [place] [id number] Albumin/Globulin [Mass ratio] 1.2 {ratio} Normal 1.1-2.5 [facility] Comment on above: Performed By: #### T SHR, CMP, GFR #### [place] [id number] ALP [Catalytic activity/Vol] 147 U/L High 40-135 [facility] Comment on above: Performed By: #### T SHR, CMP, GFR #### [place] [id number] ALT [Catalytic activity/Vol] 30 U/L Normal 14-59 [facility] Comment on above: Performed By: #### T SHR, CMP, GFR #### [place] [id number] AST [Catalytic activity/Vol] 24 U/L Normal 10-40 [facility] Comment on above: Performed By: #### T SHR, CMP, GFR #### [place] [id number] Bili Total 1.2 mg/dL High 0.2-1.0 [facility] Comment on above: Result Comment: Use of this assay is not recommended for patients undergoing treatment with eltrombopag due to the potential for falsely elevated results. Performed By: #### T SHR, CMP, GFR #### [place] [id number] BUN/Creatinine Ratio 20 ratio Normal 7-27 [facility] Comment on above: Performed By: #### T SHR, CMP, GFR #### [address] [address] Calcium [Mass/Vol] 9.0 mg/dL Normal 8.4-10.2 [facility] Comment on above: Performed By: #### T SHR, CMP, GFR #### [place] [address] Chloride [Moles/Vol] 106 mmol/L Normal 98-107 [facility] Comment on above: Performed By: #### T SHR, CMP, GFR #### [address] [address] CO2 [Moles/Vol] 29 mmol/L Normal 23-31 [facility] Comment on above: Performed By: #### T SHR, CMP, GFR #### [place] [address] Creatinine [Mass/Vol] 1.25 mg/dL High 0.55-1.02 [facility] Comment on above: Result Comment: Test ing performed on Siemens Dimension EXL analyzer using a modified kinetic John technique. Performed By: #### T SHR, CMP, GFR #### [place] [address] Electrolyte Balance 7.0 mEq/L Normal 4.0-15.0 [facility] Comment on above: Performed By: #### T SHR, CMP, GFR #### [place] [address] Globulin 3.3 G/dL Normal [facility] Comment on above: Performed By: #### T SHR, CMP, GFR #### [address] [address] Glucose [Mass/Vol] 122 mg/dL High 83-110 [facility] Comment on above: Performed By: #### T SHR, CMP, GFR #### [place] [address] Potassium [Moles/Vol] 4.2 mmol/L Normal 3.5-5.1 [facility] Comment on above: Performed By: #### T SHR, CMP, GFR #### [place] [address] Sodium [Moles/Vol] 142 mmol/L Normal 136-145 [facility] Comment on above: Performed By: #### T SHR, CMP, GFR #### [place] [id number] [place], [place] [address] Total Protein 7.1 G/dL Normal 6.4-8.2 [facility] Comment on above: Performed By: #### T SHR, CMP, GFR #### [place] [id number] [place], [place] [address] Urea nitrogen [Mass/Vol] 25 mg/dL High 7-18 [facility] Comment on above: Performed By: #### T SHR, CMP, GFR #### [place] [id number] [place], [place] [address] HCVon 12-23-2023 Hep C Ab Non-Reactive Normal Non-Reactive [facility] Comment on above: Performed By: #### A DIFF, CBC, GFR, ANEU, CMP, LIP, MDW #### [place] [id number] [place], [place] [address] Hep C Ab Int Normal [facility] Comment on above: Result Comment: Nonr eactive: Samples with a value < 0.80 are considered nonreactive (negative) for antibodies to HCV. A negative test result does not exclude the possibility of exposure to or infection with HCV. HCV antibodies may be undetectable in some stages of the infection and in some clinical conditions. See Interp Performed By: #### A DIFF, CBC, GFR, ANEU, CMP, LIP, MDW #### [address] [address] LABORATORYOrdered By: SYSTEM SYSTEM on 12-23-2023 Albumin BCP dye [Mass/Vol] 3.8 G/dL Normal 3.4 - 4.8 G/dL AO ADM SS Albumin/Globulin [Mass ratio] 1.2 {ratio} Normal 1.1 - 2.5 ratio AO ADM SS ALP [Catalytic activity/Vol] 147 U/L High 40 - 135 U/L AO ADM SS ALT With P-5'-P [Catalytic activity/Vol] 30 U/L Normal 14 - 59 U/L AO ADM SS AST With P-5'-P [Catalytic activity/Vol] 24 U/L Normal 10 - 40 U/L AO ADM SS Bilirubin [Mass/Vol] 1.2 mg/dL High 0.2 - 1 .0 mg/dL AO ADM SS Comment on above: Interpretive Data: U se of this assay is not recommended for patients undergoing treatment with eltrombopag due to the potential for falsely elevated results. Calcium [Mass/Vol] 9.0 mg/dL Normal 8.4 - 10. 2 mg/dL AO ADM SS Chloride [Moles/Vol] 106 mmol/L Normal 98 - 10 7 mmol/L AO ADM SS CO2 [Moles/Vol] 29 mmol/L Normal 23 - 31 mmol/L AO ADM SS Creatinine [Mass/Vol] 1.25 mg/dL High 0.55 - 1.02 mg/dL AO ADM SS Comment on above: Interpretive Data: T esting performed on Siemens Dimension EXL analyzer using a modified kinetic John technique. Electrolyte Balance 7.0 mEq/L Normal 4.0 - 15 .0 mEq/L AO ADM SS GFR/1.73 sq M.predicted among blacks MDRD (S/P/Bld) [Vol rate/Area] 50 ml/min/1.73sqm Invalid Interpretation Code AO Chemistry S Comment on above: Interpretive Data: GFR Population mean for , Non- Americans Ages 20-29 = 116 mL/min/1.73 sq.m. Ages 30-39 = 107 mL/min/1.73 sq.m. Ages 40-49 = 99 mL/min/1.73 sq.m. Ages 50-59 = 93 mL/min/1.73 sq.m. Ages 60-69 = 85 mL/min/1.73 sq.m. Ages 70+ = 75 mL/min/1.73 sq.m. Chronic Kidney Disease: Less than 60 mL/min/1.73 square meters End Stage Renal Disease: Less than 15 mL/min/1.73 square meters GFR/1.73 sq M.predicted among non-blacks MDRD (S/P/Bld) [Vol rate/Area] 41 ml/min/1.73sqm Invalid Interpretation Code AO Chemistry S Comment on above: Interpretive Data: GFR Population mean for , Non- Americans Ages 20-29 = 116 mL/min/1.73 sq.m. Ages 30-39 = 107 mL/min/1.73 sq.m. Ages 40-49 = 99 mL/min/1.73 sq.m. Ages 50-59 = 93 mL/min/1.73 sq.m. Ages 60-69 = 85 mL/min/1.73 sq.m. Ages 70+ = 75 mL/min/1.73 sq.m. Chronic Kidney Disease: Less than 60 mL/min/1.73 square meters End Stage Renal Disease: Less than 15 mL/min/1.73 square meters Globulin 3.3 G/dL Invalid Interpretation Code AO ADM SS Glucose [Mass/Vol] 122 mg/dL High 83 - 110 mg/dL AO ADM SS Potassium [Moles/Vol] 4.2 mmol/L Normal 3.5 - 5.1 mmol/L AO ADM SS Protein [Mass/Vol] 7.1 G/dL Normal 6.4 - 8.2 G/dL AO ADM SS Sodium [Moles/Vol] 142 mmol/L Normal 136 - 145 mmol/L AO ADM SS TSH Qn 2.04 m[IU]/L Normal 0.36 - 3.74 mcIU/mL AO ADM SS Urea nitrogen [Mass/Vol] 25 mg/dL High 7 - 18 mg/dL AO ADM SS Urea nitrogen/Creatinine [Mass ratio] 20 ratio Normal 7 - 27 ratio AO ADM SS LABORATORYOrdered By: Sherie Cobos on 12-23-2023 HCV Ab IA Ql Non-Reactive (12/23/23 11:12 AM) Normal Non-Reactive ADM SS HCV Ab IA Ql Nonreactive: Samples with a value < 0.80 are considered nonreactive (negative) for antibodies to HCV.A negative test result does not exclude the possibility of exposure to or infection with HCV. HCV antibodies may be undetectable in some stages of the infection and in some clinical conditions. Invalid Interpretation Code Chemistry S TSHRon 12-23-2023 TSH Qn 2.04 m[IU]/L Normal 0.36-3.74 [facility] Comment on above: Performed By: #### T SHR, CMP, GFR #### [address] [address] .Auto Diffon 09-13-2023 Basophil, Absolute 0.0 10 3/mcL Normal 0.0-0.2 [facility] ([place]) Comment on above: Performed By: #### A DIFF, CBC, ANEU ####[address] [place], [place] [address] Basophils/100 WBC (Bld) 0.3 % Normal 0.0-2.5 [facility] ([place]) Comment on above: Performed By: #### A DIFF, CBC, ANEU ####[address] [place], [place] [address] Eosinophil, Absolute 0.1 10 3/mcL Normal 0.0-0.4 [facility] ([place]) Comment on above: Performed By: #### A DIFF, CBC, ANEU ####[address] [place], [place] [address] Eosinophils/100 WBC (Bld) 0.8 % Normal 0.0-7.0 [facility] ([place]) Comment on above: Performed By: #### A DIFF, CBC, ANEU ####[address] [place], [place] [address] Lymphocyte, Absolute 1.4 10 3/mcL Normal 0.8-3.9 [facility] ([place]) Comment on above: Performed By: #### A DIFF, CBC, ANEU ####[address] [place], [place] [address] Lymphocytes/100 WBC (Bld) 19.9 % Normal 10.0-50.0 [facility] ([place]) Comment on above: Performed By: #### A DIFF, CBC, ANEU ####[address] [place], [place] [address] Monocyte, Absolute 0.5 10 3/mcL Normal 0.2-1.0 [facility] ([place]) Comment on above: Performed By: #### A DIFF, CBC, ANEU ####[address] [place], [place] [address] Monocytes/100 WBC (Bld) 7.0 % Normal 1.7-13.0 [facility] ([place]) Comment on above: Performed By: #### A DIFF, CBC, ANEU ####[address] [place], [place] [address] Neutrophils/100 WBC (Bld) 72.0 % Normal 37.0-80.0 [facility] ([place]) Comment on above: Performed By: #### A DIFF, CBC, ANEU ####[address] [place], [place] [address] .NEUABSon 09-13-2023 Neutrophil, Absolute 5.2 10 3/mcL Normal 2.9-6.2 [facility] ([place]) Comment on above: Performed By: #### A DIFF, CBC, ANEU ####[address] [place], [place] [address] CBCon 09-13-2023 Erythrocyte distribution width (RBC) [Ratio] 14.4 % Normal 11.5-14.5 [facility] ([place]) Comment on above: Performed By: #### A DIFF, CBC, ANEU ####[address] [place], [place] [address] Hematocrit (Bld) [Volume fraction] 38.8 % Normal 37.0-47.0 [facility] ([place]) Comment on above: Performed By: #### A DIFF, CBC, ANEU ####[address] [place], [place] [address] Hgb 13.0 G/dL Normal 12.0-16.0 [facility] ([place]) Comment on above: Performed By: #### A DIFF, CBC, ANEU ####[address] [place], [place] [address] MCH (RBC) [Entitic mass] 31.5 pg High 27.0-31.2 [facility] ([place]) Comment on above: Performed By: #### A DIFF, CBC, ANEU ####[address] [place], [place] [address] MCHC 33.6 G/dL Normal 33.0-37.0 [facility] ([place]) Comment on above: Performed By: #### A DIFF, CBC, ANEU ####[address] [place], [place] [address] MCV (RBC) [Entitic vol] 93.8 fL Normal 80.0-94.0 [facility] ([place]) Comment on above: Performed By: #### A DIFF, CBC, ANEU ####[address] [place], [place] [address] Platelet 157 10 3/mcL Normal 130-400 [facility] ([place]) Comment on above: Performed By: #### A DIFF, CBC, ANEU ####[address] [place], [place] [address] Platelet mean volume (Bld) [Entitic vol] 8.7 fL Normal 7.4-10.4 [facility] ([place]) Comment on above: Performed By: #### A DIFF, CBC, ANEU ####[address] [place], [place] [address] RBC 4.14 10 6/mcL Low 4.20-5.40 [facility] ([place]) Comment on above: Performed By: #### A DIFF, CBC, ANEU ####[address] [place], [place] [address] WBC 7.3 10 3/mcL Normal 4.6-10.8 [facility] ([place]) Comment on above: Performed By: #### A DIFF, CBC, ANEU ####[address] [place], [place] [address] LABORATORYOrdered By: SYSTEM SYSTEM on 09-13-2023 Basophil, Absolute 0.0 103/mcL Normal 0.0 - 0.2 10^3/mcL AO Workflow SS Basophils/100 WBC (Bld) 0.3 % Normal 0.0 - 2.5 % AO Workflow SS Eosinophil, Absolute 0.1 103/mcL Normal 0.0 - 0 .4 10^3/mcL AO Workflow SS Eosinophils/100 WBC (Bld) 0.8 % Normal 0.0 - 7.0 % AO Workflow SS Erythrocyte distribution width (RBC) [Ratio] 14.4 % Normal 11.5 - 14.5 % AO Workflow SS Hematocrit (Bld) [Volume fraction] 38.8 % Normal 37.0 - 47.0 % AO Workflow SS Hemoglobin (Bld) [Mass/Vol] 13.0 G/dL Normal 12.0 - 16.0 G/dL AO Workflow SS Lymphocyte, Absolute 1.4 103/mcL Normal 0.8 - 3 .9 10^3/mcL AO Workflow SS Lymphocytes/100 WBC (Bld) 19.9 % Normal 10.0 - 50.0 % AO Workflow SS MCH (RBC) [Entitic mass] 31.5 pg High 27.0 - 31.2 pg AO Workflow SS MCHC 33.6 G/dL Normal 33.0 - 37.0 G/dL AO Workflow SS MCV (RBC) [Entitic vol] 93.8 fL Normal 80.0 - 94.0 fL AO Workflow SS Monocyte, Absolute 0.5 103/mcL Normal 0.2 - 1.0 10^3/mcL AO Workflow SS Monocytes/100 WBC (Bld) 7.0 % Normal 1.7 - 13.0 % AO Workflow SS Neutrophil, Absolute 5.2 103/mcL Normal 2.9 - 6 .2 10^3/mcL AO Workflow SS Neutrophils/100 WBC (Bld) 72.0 % Normal 37.0 - 80.0 % AO Workflow SS Platelet mean volume (Bld) [Entitic vol] 8.7 fL Normal 7.4 - 10.4 fL AO Workflow SS Platelets (Bld) [#/Vol] 157 103/mcL Normal 130 - 400 10^3/mcL AO Workflow SS RBC (Bld) [#/Vol] 4.14 106/mcL Low 4.20 - 5.4 0 10^6/mcL AO Workflow SS WBC (Bld) [#/Vol] 7.3 103/mcL Normal 4.6 - 10.8 10^3/mcL AO Workflow SS Final Surgical Pathology Rep ad 06-06-2023 Final Surgical Pathology Report . Pathology Reports Accession: Collected Date/Time: Received Date/Time: Pathologist: [id number] 06/02/2023 14:00 EDT 06/03/2023 09:08 EDT MD WILIAN PARSON Final Surgical Pathology Report DIAGNOSIS: SOFT TISSUE, LEFT LATERAL SCALP, EXCISION: - PILAR CYST CLINICAL INFORMATION: INCLUSION CYST Procedure: EXCISION Preoperative diagnosis: INCLUSION CYST Postoperative diagnosis: INCLUSION CYST SPECIMEN: A LEFT LATERAL SCALP GROSS DESCRIPTION: All parts labelled with patient name and [id number] Received in formalin labelled left lateral scalp Is a white smooth oval-shaped cystic cavity with no surfacing skin measuring 2.4 x 1.6 x 1.6 cm. Sectioning reveals white -light brown cystic cut surfaces. RS-1 Meryl Martin, Pathologists' Geothermal Hvac Technician (ASCP) Dictated by MERYL MARTIN MICROSCOPIC DESCRIPTION: The microscopic examination is performed, except in the case of Gross Only. Electronically Signed by Pathology Report verified by [facility] WILIAN PARSON MD Sign out Date: 06/06/2023 09:37 Performing Lab: [facility], [address] [place] [address] Pathology Dept Disclaimer If ancillary studies were utilized, the following Laboratory Developed Test (LDT) disclaimer will apply: Under CLIA requirements, [facility] Pathology Laboratory is qualified to perform high complexity testing. For all ancillary stains, positive and negative controls stain appropriately. Performance characteristics of immunohistochemical and chromogenic in-situ hybridization tests have been determined by [facility] Pathology Laboratory. These tests are used for clinical purposes, They should not be regarded as investigational or for research. Normal [facility] ([place]) US SOFT TISSUE MASS OF HEAD OR NECKon 04-18-2023 US SOFT TISSUE MASS OF HEAD OR NECK ORIGINAL EXAMINATION: ULTRASOUND OF THE SOFT TISSUES OF THE HEAD AND NECK04/15/2023 2:48 pm COMPARISON: None HISTORY: ORDERING SYSTEM PROVIDED HISTORY: Reason for Exam: scalp mass FINDINGS: Ultrasonographic evaluation of the area of interest of the scalp demonstrates a 1.8 x 1.8 x 1.3 cm lesion with well-defined borders and without internal vascularity. This lesion appears to be cystic however demonstrates internal echogenicities. Overall appearance is suggestive of an epidermal inclusion cyst. A possible complex sebaceous cyst is not excluded. No tract is seen to the skin surface, however. IMPRESSION: Scalp lesion most consistent with an epidermal inclusion cyst. Possible complex sebaceous cyst is not excluded. Interpreted by: Durga Chaves MD Preliminary Report By: Durga Chaves MD Electronically signed By Durga Chaves MD Dictated Date: 04/18/2023 9:28:59 AM Prelim Date: 04/18/2023 9:30:45 AM Sign Date: 04/18/2023 9:30:45 AM Ordering Provider: EDY Henderson [facility] ([place]) .Auto Diffon 02-27-2023 Basophil, Absolute 0.0 10 3/mcL Normal 0.0-0.3 Replaced by [facility] ([place]) Comment on above: Performed By: #### A DEBRA GALLARDO #### [address] [address] Basophils/100 WBC (Bld) 0.2 % Normal 0.0-2.5 [facility] ([place]) Comment on above: Performed By: #### A DEBRA GALLARDO #### [address] [address] Eosinophil, Absolute 0.2 10 3/mcL Normal 0.0-0.7 [facility] ([place]) Comment on above: Performed By: #### A DEBRA GALLARDO #### [address] [address] Eosinophils/100 WBC (Bld) 2.2 % Normal 0.0-6.0 [facility] ([place]) Comment on above: Performed By: #### A DEBRA GALLARDO #### [address] [address] Lymphocyte, Absolute 0.8 10 3/mcL Low 0.9-4.3 [facility] ([place]) Comment on above: Performed By: #### DEBRA SHEA #### [address] [address] Lymphocytes/100 WBC (Bld) 10.9 % Low 20.0-40.0 [facility] ([place]) Comment on above: Performed By: #### A DEBRA GALLARDO #### [address] [address] Monocyte, Absolute 0.5 10 3/mcL Normal 0.1-1.4 Replaced by [facility] ([place]) Comment on above: Performed By: #### A DEBRA GALLARDO #### [address] [address] Monocytes/100 WBC (Bld) 6.9 % Normal 2.0-13.0 [facility] ([place]) Comment on above: Performed By: #### A DEBRA GALLARDO #### [address] [address] Neutrophils/100 WBC (Bld) 79.8 % High 50.0-75.0 [facility] ([place]) Comment on above: Performed By: #### DEBRA SHEA #### [address] [address] .GFRon 02-27-2023 GFR >60 Normal Replaced by [facility] ([place]) Comment on above: Result Comment: GFR Population mean for , Non- Americans Ages 20-29 = 116 mL/min/1.73 sq.m. Ages 30-39 = 107 mL/min/1.73 sq.m. Ages 40-49 = 99 mL/min/1.73 sq.m. Ages 50-59 = 93 mL/min/1.73 sq.m. Ages 60-69 = 85 mL/min/1.73 sq.m. Ages 70+ = 75 mL/min/1.73 sq.m. Chronic Kidney Disease: Less than 60 mL/min/1.73 square meters End Stage Renal Disease: Less than 15 mL/min/1.73 square meters Performed By: #### DEBRA SHEA #### [address] [address] GFR Non- >60 Normal [facility] ([place]) Comment on above: Result Comment: GFR Population mean for , Non- Americans Ages 20-29 = 116 mL/min/1.73 sq.m. Ages 30-39 = 107 mL/min/1.73 sq.m. Ages 40-49 = 99 mL/min/1.73 sq.m. Ages 50-59 = 93 mL/min/1.73 sq.m. Ages 60-69 = 85 mL/min/1.73 sq.m. Ages 70+ = 75 mL/min/1.73 sq.m. Chronic Kidney Disease: Less than 60 mL/min/1.73 square meters End Stage Renal Disease: Less than 15 mL/min/1.73 square meters Performed By: #### DEBRA SHEA #### [address] [address] .NEUABSon 02-27-2023 Neutrophil, Absolute 6.1 10 3/mcL Normal 2.3-8.1 [facility] ([place]) Comment on above: Performed By: #### DEBRA SHEA #### [address] [address] BMPon 02-27-2023 BUN/Creatinine Ratio 12.5 ratio Normal 10.0-22.0 Replaced by [facility] ([place]) Comment on above: Performed By: #### DEBRA SHEA #### [address] [address] Calcium [Mass/Vol] 8.2 mg/dL Low 8.7-10.4 [facility] ([place]) Comment on above: Performed By: #### DEBRA SHEA #### [address] [address] Chloride [Moles/Vol] 107 mmol/L Normal 98-110 Replaced by [facility] ([place]) Comment on above: Performed By: #### DEBRA SHEA #### [address] [address] CO2 [Moles/Vol] 29 mmol/L Normal 22-32 [facility] ([place]) Comment on above: Performed By: #### DEBRA SHEA #### [address] [address] Creatinine [Mass/Vol] 0.72 mg/dL Normal 0.50-1.20 [facility] ([place]) Comment on above: Performed By: #### DEBRA SHEA #### [address] [address] Electrolyte Balance 3.0 mEq/L Low 4.0-15.0 [facility] ([place]) Comment on above: Performed By: #### DEBRA SHEA #### [address] [address] Glucose [Mass/Vol] 138 mg/dL High 82-115 [facility] ([place]) Comment on above: Performed By: #### DEBRA SHEA #### [address] [address] Potassium [Moles/Vol] 3.9 mmol/L Normal 3.5-5.0 [facility] ([place]) Comment on above: Performed By: #### A DEBRA GALLARDO #### [address] [address] Sodium [Moles/Vol] 139 mmol/L Normal 136-145 [facility] ([place]) Comment on above: Performed By: #### A DEBRA GALLARDO #### [place] [id number] Urea nitrogen [Mass/Vol] 9.0 mg/dL Normal 8.0-22.0 [facility] ([place]) Comment on above: Performed By: #### A DEBRA GALLARDO #### [address] [address] CBCon 02-27-2023 Erythrocyte distribution width (RBC) [Ratio] 13.5 % Normal 11.5-15.5 [facility] ([place]) Comment on above: Performed By: #### DEBRA SHEA #### [place] [id number] Hematocrit (Bld) [Volume fraction] 30.0 % Low 34.0-46.0 [facility] ([place]) Comment on above: Performed By: #### DEBRA SHEA #### [place] [address] Hgb 10.1 G/dL Low 12.0-16.0 [facility] ([place]) Comment on above: Performed By: #### DEBRA SHEA #### [place] [id number] MCH (RBC) [Entitic mass] 31.5 pg Normal 27.0-33.0 [facility] ([place]) Comment on above: Performed By: #### DEBRA SHEA #### [place] [id number] MCHC 33.9 G/dL Normal 32.0-36.0 [facility] ([place]) Comment on above: Performed By: #### DEBRA SHEA #### [place] [id number] MCV (RBC) [Entitic vol] 93.1 fL Normal 80.0-99.0 [facility] ([place]) Comment on above: Performed By: #### A DEBRA GALLARDO #### [address] [address] Platelet 137 10 3/mcL Low 150-450 [facility] ([place]) Comment on above: Performed By: #### A DEBRA GALLARDO #### [address] [address] Platelet mean volume (Bld) [Entitic vol] 8.2 fL Normal 6.6-10.5 [facility] ([place]) Comment on above: Performed By: #### A DEBRA GALLARDO #### [address] [address] RBC 3.22 10 6/mcL Low 4.10-5.30 [facility] ([place]) Comment on above: Performed By: #### A DEBRA GALLARDO #### [address] [address] WBC 7.7 10 3/mcL Normal 4.5-10.8 [facility] ([place]) Comment on above: Performed By: #### A DEBRA GALLARDO #### [address] [address] [address] THORAX W/O CONTRASTon CT THORAX W/O CONTRAST ORIGINAL EXAMINATION: CT OF THE CHEST WITHOUT CONTRAST 02/27/2023 8:37 am TECHNIQUE: CT of the chest was performed without the administration of intravenous contrast. Multiplanar reformatted images are provided for review. Automated exposure control, iterative reconstruction, and/or weight based adjustment of the mA/kV was utilized to reduce the radiation dose to as low as reasonably achievable. COMPARISON: May 23, 2019 HISTORY: ORDERING SYSTEM PROVIDED HISTORY: Reason for Exam: SOB AT TIMES NO OTHER COMPLAINTS pulmonary nodules FINDINGS: Minor degenerative changes are noted in the spine. No acute osseous abnormality is identified. Trace right and small left pleural effusions are present with some adjacent compressive atelectasis. These findings are new since the previous exam. Emphysema is evident and there are scattered areas of pulmonary and pleural scarring seen. Subcentimeter ill-defined scattered nodular densities are identified, and the findings are not significantly different than on the previous study. No new or enlarging nodule is identified. No focal area of airspace consolidation is otherwise evident. Focal dilatation of the thoracic aorta at the arch laterally is evident, a stable finding since the previous exam. No definite mediastinal adenopathy within the constraints of a noncontrast exam. Small amount of pericardial fluid noted. Pneumoperitoneum is evident. Technologist worksheet indicates that the patient is status post abdominal aortic aneurysm repair and the free air may be on that basis. No additional contributory abnormality identified. IMPRESSION: 1. Emphysema and areas of scarring. Scattered ill-defined nodular densities are stable since the prior exam and are therefore considered benign. 2. Trace right and small left pleural effusions with minimal adjacent atelectasis. 3. No other acute finding. Abdominal free air is presumably postoperative as discussed above. Interpreted by: Laureen Cummings MD Preliminary Report By: Laureen Cummings MD Electronically signed By Laureen Cummings MD Dictated Date: 02/27/2023 8:41:45 AM Prelim Date: 02/27/2023 8:46:56 AM Sign Date: 02/27/2023 8:46:56 AM Ordering Provider: BETTINA Henderson [facility] ([place]) HHon 02-27-2023 Hematocrit (Bld) [Volume fraction] 28.8 % Low 34.0-46.0 [facility] ([place]) Comment on above: Performed By: #### DEBRA SHEA #### [address] [address] Hgb 10.1 G/dL Low 12.0-16.0 [facility] ([place]) Comment on above: Performed By: #### DEBRA SHEA #### [address] [address] LABORATORYOrdered By: SYSTEM SYSTEM on 02-27-2023 Basophils (Bld) [#/Vol] 0.0 103/mcL Normal 0.0 - 0.3 10^3/mcL AH Workflow SS Basophils/100 WBC (Bld) 0.2 % Normal 0.0 - 2.5 % AH Workflow SS Calcium [Mass/Vol] 8.2 mg/dL Low 8.7 - 10. 4 mg/dL AH ADM SS Chloride [Moles/Vol] 107 mmol/L Normal 98 - 11 0 mEq/L ADM SS CO2 [Moles/Vol] 29 mmol/L Normal 22 - 32 mEq/L ADM SS Creatinine [Mass/Vol] 0.72 mg/dL Normal 0.50 - 1.20 mg/dL ADM SS Electrolyte Balance 3.0 mEq/L Low 4.0 - 15 .0 mEq/L ADM SS Eosinophils (Bld) [#/Vol] 0.2 103/mcL Normal 0.0 - 0.7 10^3/mcL Workflow SS Eosinophils/100 WBC (Bld) 2.2 % Normal 0.0 - 6.0 % Workflow SS Erythrocyte distribution width (RBC) [Ratio] 13.5 % Normal 11.5 - 15.5 % Workflow SS GFR/1.73 sq M.predicted among blacks MDRD (S/P/Bld) [Vol rate/Area] ml/min/1.73sqm Invalid Interpretation Code ADM SS Comment on above: Interpretive Data: GFR Population mean for , Non- Americans Ages 20-29 = 116 mL/min/1.73 sq.m. Ages 30-39 = 107 mL/min/1.73 sq.m. Ages 40-49 = 99 mL/min/1.73 sq.m. Ages 50-59 = 93 mL/min/1.73 sq.m. Ages 60-69 = 85 mL/min/1.73 sq.m. Ages 70+ = 75 mL/min/1.73 sq.m. Chronic Kidney Disease: Less than 60 mL/min/1.73 square meters End Stage Renal Disease: Less than 15 mL/min/1.73 square meters GFR/1.73 sq M.predicted among non-blacks MDRD (S/P/Bld) [Vol rate/Area] ml/min/1.73sqm Invalid Interpretation Code ADM SS Comment on above: Interpretive Data: GFR Population mean for , Non- Americans Ages 20-29 = 116 mL/min/1.73 sq.m. Ages 30-39 = 107 mL/min/1.73 sq.m. Ages 40-49 = 99 mL/min/1.73 sq.m. Ages 50-59 = 93 mL/min/1.73 sq.m. Ages 60-69 = 85 mL/min/1.73 sq.m. Ages 70+ = 75 mL/min/1.73 sq.m. Chronic Kidney Disease: Less than 60 mL/min/1.73 square meters End Stage Renal Disease: Less than 15 mL/min/1.73 square meters Glucose [Mass/Vol] 138 mg/dL High 82 - 115 mg/dL ADM SS Hematocrit (Bld) [Volume fraction] 30.0 % Low 34.0 - 46.0 % AH Workflow SS Hematocrit (Bld) [Volume fraction] 28.8 % Low 34.0 - 46.0 % AH Workflow SS Lymphocytes (Bld) [#/Vol] 0.8 103/mcL Low 0.9 - 4.3 10^3/mcL AH Workflow SS Lymphocytes/100 WBC (Bld) 10.9 % Low 20.0 - 40.0 % AH Workflow SS MCH (RBC) [Entitic mass] 31.5 pg Normal 27.0 - 33.0 pg AH Workflow SS MCHC 33.9 G/dL Normal 32.0 - 36.0 G/dL AH Workflow SS MCV (RBC) [Entitic vol] 93.1 fL Normal 80.0 - 99.0 fL AH Workflow SS Monocytes (Bld) [#/Vol] 0.5 103/mcL Normal 0.1 - 1.4 10^3/mcL AH Workflow SS Monocytes/100 WBC (Bld) 6.9 % Normal 2.0 - 13.0 % AH Workflow SS Neutrophils (Bld) [#/Vol] 6.1 103/mcL Normal 2.3 - 8.1 10^3/mcL AH Workflow SS Neutrophils/100 WBC (Bld) 79.8 % High 50.0 - 75.0 % AH Workflow SS Platelet mean volume (Bld) [Entitic vol] 8.2 fL Normal 6.6 - 10.5 fL AH Workflow SS Platelets (Bld) [#/Vol] 137 103/mcL Low 150 - 450 10^3/mcL AH Workflow SS Platelets (Bld) [#/Vol] 136 103/mcL Low 150 - 450 10^3/mcL AH Workflow SS Potassium [Moles/Vol] 3.9 mmol/L Normal 3.5 - 5.0 mEq/L ADM SS RBC (Bld) [#/Vol] 3.22 106/mcL Low 4.10 - 5.3 0 10^6/mcL Workflow SS Sodium [Moles/Vol] 139 mmol/L Normal 136 - 145 mEq/L ADM SS Urea nitrogen [Mass/Vol] 9.0 mg/dL Normal 8.0 - 22.0 mg/dL ADM SS Urea nitrogen/Creatinine [Mass ratio] 12.5 ratio Normal 10.0 - 22.0 ratio ADM SS WBC (Bld) [#/Vol] 7.7 103/mcL Normal 4.5 - 10.8 10^3/mcL Workflow SS LABORATORYOrdered By: Shahzad Conteh on 02-27-2023 PT Coag (PPP) [Time] 12.2 s Normal 9.0 - 1 4.2 seconds [facility] Comment on above: Interpretive Data: E ffective 09/05/07, Protime results may be affected by some antibiotics (i.e. Ciprofloxacin, Azithromycin, Bactrim) which may potentiate the action of oral anticoagulants, with further increases in Protime/INR. PT International Ratio 1.1 ratio Invalid Interpretation Code [facility] Comment on above: Interpretive Data: T tristin [employer] (CHEST, 1991, 102:312S-25S) recommended therapeutic range for oral anticoagulant therapy is: LOW RISK: Prophylaxis of venous thrombosis INR: 2.0-3.0 Treatment of pulmonary embolism 2.0-3.0 Prevention of systemic embolism 2.0-3.0 HIGH RISK: Mechanical prosthetic valves 2.5-3.5 Laboratory - Hematology and Cell countsOrdered By: SYSTEM SYSTEM on 02-27-2023 Hemoglobin (Bld) [Mass/Vol] 10.1 G/dL Low 12.0 - 16.0 G/dL Workflow SS PLTon 02-27-2023 Platelet 136 10 3/mcL Low 150-450 [facility] ([place]) Comment on above: Performed By: #### A DEBRA GALLARDO #### [place] [address] PROon 02-27-2023 INR Coag (PPP) [Relative time] 1.1 {INR} Normal [facility] ([place]) Comment on above: Result Comment: [employer] (CHEST, 1991, 102:312S-25S) recommended therapeutic range for oral anticoagulant therapy is: LOW RISK: Prophylaxis of venous thrombosis INR: 2.0-3.0 Treatment of pulmonary embolism 2.0-3.0 Prevention of systemic embolism 2.0-3.0 HIGH RISK: Mechanical prosthetic valves 2.5-3.5 Performed By: #### P RO ####[address] [address] PT Coag (PPP) [Time] 12.2 s Normal 9.0-14.2 Replaced by [facility] ([place]) Comment on above: Result Comment: Effe ctive 09/05/07, Protime results may be affected by some antibiotics (i.e. Ciprofloxacin, Azithromycin, Bactrim) which may potentiate the action of oral anticoagulants, with further increases in Protime/INR. Performed By: #### P RO ####[address] [address] .GFRon 02-26-2023 GFR Non- >60 Normal [facility] ([place]) Comment on above: Result Comment: GFR Population mean for , Non- Americans Ages 20-29 = 116 mL/min/1.73 sq.m. Ages 30-39 = 107 mL/min/1.73 sq.m. Ages 40-49 = 99 mL/min/1.73 sq.m. Ages 50-59 = 93 mL/min/1.73 sq.m. Ages 60-69 = 85 mL/min/1.73 sq.m. Ages 70+ = 75 mL/min/1.73 sq.m. Chronic Kidney Disease: Less than 60 mL/min/1.73 square meters End Stage Renal Disease: Less than 15 mL/min/1.73 square meters Performed By: #### P LT, FIB, PRO #### [address] [address] GFR >60 Normal Replaced by [facility] ([place]) Comment on above: Result Comment: GFR Population mean for , Non- Americans Ages 20-29 = 116 mL/min/1.73 sq.m. Ages 30-39 = 107 mL/min/1.73 sq.m. Ages 40-49 = 99 mL/min/1.73 sq.m. Ages 50-59 = 93 mL/min/1.73 sq.m. Ages 60-69 = 85 mL/min/1.73 sq.m. Ages 70+ = 75 mL/min/1.73 sq.m. Chronic Kidney Disease: Less than 60 mL/min/1.73 square meters End Stage Renal Disease: Less than 15 mL/min/1.73 square meters Performed By: #### P LT, FIB, PRO #### [address] [address] BMPon 02-26-2023 BUN/Creatinine Ratio 16.0 ratio Normal 10.0-22.0 Replaced by [facility] ([place]) Comment on above: Performed By: #### P LT, FIB, PRO #### [address] [address] Calcium [Mass/Vol] 7.9 mg/dL Low 8.7-10.4 [facility] ([place]) Comment on above: Performed By: #### P LT, FIB, PRO #### [address] [address] Chloride [Moles/Vol] 110 mmol/L Normal 98-110 Replaced by [facility] ([place]) Comment on above: Performed By: #### P LT, FIB, PRO #### [address] [address] CO2 [Moles/Vol] 27 mmol/L Normal 22-32 [facility] ([place]) Comment on above: Performed By: #### P LT, FIB, PRO #### [address] [address] Creatinine [Mass/Vol] 0.75 mg/dL Normal 0.50-1.20 [facility] ([place]) Comment on above: Performed By: #### P LT, FIB, PRO #### [address] [address] Electrolyte Balance 3.0 mEq/L Low 4.0-15.0 [facility] ([place]) Comment on above: Performed By: #### P LT, FIB, PRO #### [address] [address] Glucose [Mass/Vol] 122 mg/dL High 82-115 [facility] ([place]) Comment on above: Performed By: #### P LT, FIB, PRO #### [address] [address] Potassium [Moles/Vol] 4.6 mmol/L Normal 3.5-5.0 [facility] ([place]) Comment on above: Result Comment: Spec imen slightly hemolyzed. Performed By: #### P LT, FIB, PRO #### [address] [address] Sodium [Moles/Vol] 140 mmol/L Normal 136-145 [facility] ([place]) Comment on above: Performed By: #### P LT, FIB, PRO #### [address] [address] Urea nitrogen [Mass/Vol] 12.0 mg/dL Normal 8.0-22.0 [facility] ([place]) Comment on above: Performed By: #### P LT, FIB, PRO #### [address] [address] LABORATORYOrdered By: SYSTEM SYSTEM on 02-26-2023 Calcium [Mass/Vol] 7.9 mg/dL Low 8.7 - 10. 4 mg/dL ADM SS Chloride [Moles/Vol] 110 mmol/L Normal 98 - 11 0 mEq/L ADM SS CO2 [Moles/Vol] 27 mmol/L Normal 22 - 32 mEq/L ADM SS Creatinine [Mass/Vol] 0.75 mg/dL Normal 0.50 - 1.20 mg/dL ADM SS Electrolyte Balance 3.0 mEq/L Low 4.0 - 15 .0 mEq/L AH ADM SS GFR/1.73 sq M.predicted among blacks MDRD (S/P/Bld) [Vol rate/Area] ml/min/1.73sqm Invalid Interpretation Code ADM SS Comment on above: Interpretive Data: GFR Population mean for , Non- Americans Ages 20-29 = 116 mL/min/1.73 sq.m. Ages 30-39 = 107 mL/min/1.73 sq.m. Ages 40-49 = 99 mL/min/1.73 sq.m. Ages 50-59 = 93 mL/min/1.73 sq.m. Ages 60-69 = 85 mL/min/1.73 sq.m. Ages 70+ = 75 mL/min/1.73 sq.m. Chronic Kidney Disease: Less than 60 mL/min/1.73 square meters End Stage Renal Disease: Less than 15 mL/min/1.73 square meters GFR/1.73 sq M.predicted among non-blacks MDRD (S/P/Bld) [Vol rate/Area] ml/min/1.73sqm Invalid Interpretation Code ADM SS Comment on above: Interpretive Data: GFR Population mean for , Non- Americans Ages 20-29 = 116 mL/min/1.73 sq.m. Ages 30-39 = 107 mL/min/1.73 sq.m. Ages 40-49 = 99 mL/min/1.73 sq.m. Ages 50-59 = 93 mL/min/1.73 sq.m. Ages 60-69 = 85 mL/min/1.73 sq.m. Ages 70+ = 75 mL/min/1.73 sq.m. Chronic Kidney Disease: Less than 60 mL/min/1.73 square meters End Stage Renal Disease: Less than 15 mL/min/1.73 square meters Glucose [Mass/Vol] 122 mg/dL High 82 - 115 mg/dL ADM SS Potassium [Moles/Vol] 4.6 mmol/L Normal 3.5 - 5.0 mEq/L ADM SS Comment on above: Result Comment: Spec imen slightly hemolyzed. Sodium [Moles/Vol] 140 mmol/L Normal 136 - 145 mEq/L ADM SS Urea nitrogen [Mass/Vol] 12.0 mg/dL Normal 8.0 - 22.0 mg/dL ADM SS Urea nitrogen/Creatinine [Mass ratio] 16.0 ratio Normal 10.0 - 22.0 ratio ADM SS .Auto Diffon 02-25-2023 Basophil, Absolute 0.0 10 3/mcL Normal 0.0-0.3 Replaced by [facility] ([place]) Comment on above: Performed By: #### P LT, FIB, PRO #### [facility] [address] [place] [address] Basophils/100 WBC (Bld) 0.1 % Normal 0.0-2.5 [facility] ([place]) Comment on above: Performed By: #### P LT, FIB, PRO #### [address] [address] Eosinophil, Absolute 0.0 10 3/mcL Normal 0.0-0.7 [facility] ([place]) Comment on above: Performed By: #### P LT, FIB, PRO #### [address] [address] Eosinophils/100 WBC (Bld) 0.0 % Normal 0.0-6.0 [facility] ([place]) Comment on above: Performed By: #### P LT, FIB, PRO #### [address] [address] Lymphocyte, Absolute 0.7 10 3/mcL Low 0.9-4.3 [facility] ([place]) Comment on above: Performed By: #### P LT, FIB, PRO #### [address] [address] Lymphocytes/100 WBC (Bld) 7.3 % Low 20.0-40.0 [facility] ([place]) Comment on above: Performed By: #### P LT, FIB, PRO #### [address] [address] Monocyte, Absolute 0.7 10 3/mcL Normal 0.1-1.4 Replaced by [facility] ([place]) Comment on above: Performed By: #### P LT, FIB, PRO #### [address] [address] Monocytes/100 WBC (Bld) 6.6 % Normal 2.0-13.0 [facility] ([place]) Comment on above: Performed By: #### P LT, FIB, PRO #### [address] [address] Neutrophils/100 WBC (Bld) 86.0 % High 50.0-75.0 [facility] ([place]) Comment on above: Performed By: #### P LT, FIB, PRO #### [address] [address] .GFRon 02-25-2023 GFR >60 Normal Replaced by [facility] ([place]) Comment on above: Result Comment: GFR Population mean for , Non- Americans Ages 20-29 = 116 mL/min/1.73 sq.m. Ages 30-39 = 107 mL/min/1.73 sq.m. Ages 40-49 = 99 mL/min/1.73 sq.m. Ages 50-59 = 93 mL/min/1.73 sq.m. Ages 60-69 = 85 mL/min/1.73 sq.m. Ages 70+ = 75 mL/min/1.73 sq.m. Chronic Kidney Disease: Less than 60 mL/min/1.73 square meters End Stage Renal Disease: Less than 15 mL/min/1.73 square meters Performed By: #### A DEBRA GALLARDO #### [address] [address] GFR Non- >60 Normal [facility] ([place]) Comment on above: Result Comment: GFR Population mean for , Non- Americans Ages 20-29 = 116 mL/min/1.73 sq.m. Ages 30-39 = 107 mL/min/1.73 sq.m. Ages 40-49 = 99 mL/min/1.73 sq.m. Ages 50-59 = 93 mL/min/1.73 sq.m. Ages 60-69 = 85 mL/min/1.73 sq.m. Ages 70+ = 75 mL/min/1.73 sq.m. Chronic Kidney Disease: Less than 60 mL/min/1.73 square meters End Stage Renal Disease: Less than 15 mL/min/1.73 square meters Performed By: #### A DEBRA GALLARDO #### [address] [address] .NEUABSon 02-25-2023 Neutrophil, Absolute 8.5 10 3/mcL High 2.3-8.1 [facility] ([place]) Comment on above: Performed By: #### P LT, FIB, PRO #### [address] [address] CBCon 02-25-2023 Erythrocyte distribution width (RBC) [Ratio] 13.5 % Normal 11.5-15.5 [facility] ([place]) Comment on above: Performed By: #### P LT, FIB, PRO #### [place] [address] Hematocrit (Bld) [Volume fraction] 30.0 % Low 34.0-46.0 [facility] ([place]) Comment on above: Performed By: #### P LT, FIB, PRO #### [place] [address] Hgb 10.4 G/dL Low 12.0-16.0 [facility] ([place]) Comment on above: Performed By: #### P LT, FIB, PRO #### [place] [address] MCH (RBC) [Entitic mass] 32.3 pg Normal 27.0-33.0 [facility] ([place]) Comment on above: Performed By: #### P LT, FIB, PRO #### [place] [address] MCHC 34.8 G/dL Normal 32.0-36.0 [facility] ([place]) Comment on above: Performed By: #### P LT, FIB, PRO #### [place] [address] MCV (RBC) [Entitic vol] 92.9 fL Normal 80.0-99.0 [facility] ([place]) Comment on above: Performed By: #### P LT, FIB, PRO #### [place] [address] Platelet 139 10 3/mcL Low 150-450 [facility] ([place]) Comment on above: Performed By: #### P LT, FIB, PRO #### [place] [address] Platelet mean volume (Bld) [Entitic vol] 8.2 fL Normal 6.6-10.5 [facility] ([place]) Comment on above: Performed By: #### P LT, FIB, PRO #### [place] [address] RBC 3.23 10 6/mcL Low 4.10-5.30 [facility] ([place]) Comment on above: Performed By: #### P LT, FIB, PRO #### [place] [address] WBC 9.9 10 3/mcL Normal 4.5-10.8 [facility] ([place]) Comment on above: Performed By: #### P LT, FIB, PRO #### [place] [address] CMPon 02-25-2023 Albumin Level 3.0 G/dL Low 3.2-4.8 [facility] ([place]) Comment on above: Performed By: #### P LT, FIB, PRO #### [place] [address] Albumin/Globulin [Mass ratio] 1.3 {ratio} Normal 0.9-1.6 [facility] ([place]) Comment on above: Performed By: #### P LT, FIB, PRO #### [place] [address] ALP [Catalytic activity/Vol] 66 U/L Normal 38-126 [facility] ([place]) Comment on above: Performed By: #### P LT, FIB, PRO #### [place] [address] ALT [Catalytic activity/Vol] 12 U/L Normal 10-49 [facility] ([place]) Comment on above: Performed By: #### P LT, FIB, PRO #### [place] [address] AST [Catalytic activity/Vol] 23 U/L Normal 8-34 [facility] ([place]) Comment on above: Performed By: #### P LT, FIB, PRO #### [place] [address] Bili Total 1.00 mg/dL Normal 0.20-1.20 [facility] ([place]) Comment on above: Result Comment: Use of this assay is not recommended for patients undergoing treatment with eltrombopag due to the potential for falsely elevated results. Performed By: #### P LT, FIB, PRO #### [place] [address] BUN/Creatinine Ratio 18.2 ratio Normal 10.0-22.0 Replaced by [facility] ([place]) Comment on above: Performed By: #### P LT, FIB, PRO #### [place] [address] Calcium [Mass/Vol] 8.1 mg/dL Low 8.7-10.4 [facility] ([place]) Comment on above: Performed By: #### P LT, FIB, PRO #### [place] [address] Chloride [Moles/Vol] 109 mmol/L Normal 98-110 Replaced by [facility] ([place]) Comment on above: Performed By: #### P LT, FIB, PRO #### [place] [address] CO2 [Moles/Vol] 25 mmol/L Normal 22-32 [facility] ([place]) Comment on above: Performed By: #### P LT, FIB, PRO #### [place] [address] Creatinine [Mass/Vol] 0.88 mg/dL Normal 0.50-1.20 [facility] ([place]) Comment on above: Performed By: #### P LT, FIB, PRO #### [place] [address] Electrolyte Balance 5.0 mEq/L Normal 4.0-15.0 [facility] ([place]) Comment on above: Performed By: #### P LT, FIB, PRO #### [place] [address] Globulin 2.3 G/dL Normal 1.5-3.8 [facility] ([place]) Comment on above: Performed By: #### P LT, FIB, PRO #### [place] [address] Glucose [Mass/Vol] 217 mg/dL High 82-115 [facility] ([place]) Comment on above: Performed By: #### P LT, FIB, PRO #### [place] [address] Potassium [Moles/Vol] 4.4 mmol/L Normal 3.5-5.0 [facility] ([place]) Comment on above: Performed By: #### P LT, FIB, PRO #### [place] [address] Sodium [Moles/Vol] 139 mmol/L Normal 136-145 [facility] ([place]) Comment on above: Performed By: #### P LT, FIB, PRO #### [place] [address] Total Protein 5.3 G/dL Low 5.7-8.2 [facility] ([place]) Comment on above: Result Comment: No te - New Reference Range in effect 19 Performed By: #### P LT, FIB, PRO #### [place] [address] Urea nitrogen [Mass/Vol] 16.0 mg/dL Normal 8.0-22.0 [facility] ([place]) Comment on above: Performed By: #### P LT, FIB, PRO #### [place] [address] HHon 02-25-2023 Hematocrit (Bld) [Volume fraction] 30.4 % Low 34.0-46.0 [facility] ([place]) Comment on above: Performed By: #### A DEBRA GALLARDO #### [place] [address] Hgb 10.5 G/dL Low 12.0-16.0 [facility] ([place]) Comment on above: Performed By: #### DEBRA SHEA #### [place] [address] LABORATORYOrdered By: SYSTEM SYSTEM on 02-25-2023 Albumin BCP dye [Mass/Vol] 3.0 G/dL Low 3.2 - 4.8 G/dL AH ADM SS Albumin/Globulin [Mass ratio] 1.3 {ratio} Normal 0.9 - 1.6 ratio AH ADM SS ALP [Catalytic activity/Vol] 66 U/L Normal 38 - 126 U/L AH ADM SS ALT No additional P-5'-P [Catalytic activity/Vol] 12 U/L Normal 10 - 49 U/L AH ADM SS AST [Catalytic activity/Vol] 23 U/L Normal 8 - 34 U/L AH ADM SS Basophils (Bld) [#/Vol] 0.0 103/mcL Normal 0.0 - 0.3 10^3/mcL AH Workflow SS Basophils/100 WBC (Bld) 0.1 % Normal 0.0 - 2.5 % AH Workflow SS Bilirubin [Mass/Vol] 1.00 mg/dL Normal 0.20 - 1.20 mg/dL AH ADM SS Comment on above: Interpretive Data: U se of this assay is not recommended for patients undergoing treatment with eltrombopag due to the potential for falsely elevated results. Calcium [Mass/Vol] 8.1 mg/dL Low 8.7 - 10. 4 mg/dL AH ADM SS Chloride [Moles/Vol] 109 mmol/L Normal 98 - 11 0 mEq/L ADM SS CO2 [Moles/Vol] 25 mmol/L Normal 22 - 32 mEq/L AH ADM SS Creatinine [Mass/Vol] 0.88 mg/dL Normal 0.50 - 1.20 mg/dL AH ADM SS Electrolyte Balance 5.0 mEq/L Normal 4.0 - 15 .0 mEq/L AH ADM SS Eosinophils (Bld) [#/Vol] 0.0 103/mcL Normal 0.0 - 0.7 10^3/mcL AH Workflow SS Eosinophils/100 WBC (Bld) 0.0 % Normal 0.0 - 6.0 % AH Workflow SS Erythrocyte distribution width (RBC) [Ratio] 13.5 % Normal 11.5 - 15.5 % Workflow SS GFR/1.73 sq M.predicted among blacks MDRD (S/P/Bld) [Vol rate/Area] ml/min/1.73sqm Invalid Interpretation Code ADM SS Comment on above: Interpretive Data: GFR Population mean for , Non- Americans Ages 20-29 = 116 mL/min/1.73 sq.m. Ages 30-39 = 107 mL/min/1.73 sq.m. Ages 40-49 = 99 mL/min/1.73 sq.m. Ages 50-59 = 93 mL/min/1.73 sq.m. Ages 60-69 = 85 mL/min/1.73 sq.m. Ages 70+ = 75 mL/min/1.73 sq.m. Chronic Kidney Disease: Less than 60 mL/min/1.73 square meters End Stage Renal Disease: Less than 15 mL/min/1.73 square meters GFR/1.73 sq M.predicted among non-blacks MDRD (S/P/Bld) [Vol rate/Area] ml/min/1.73sqm Invalid Interpretation Code ADM SS Comment on above: Interpretive Data: GFR Population mean for , Non- Americans Ages 20-29 = 116 mL/min/1.73 sq.m. Ages 30-39 = 107 mL/min/1.73 sq.m. Ages 40-49 = 99 mL/min/1.73 sq.m. Ages 50-59 = 93 mL/min/1.73 sq.m. Ages 60-69 = 85 mL/min/1.73 sq.m. Ages 70+ = 75 mL/min/1.73 sq.m. Chronic Kidney Disease: Less than 60 mL/min/1.73 square meters End Stage Renal Disease: Less than 15 mL/min/1.73 square meters Globulin 2.3 G/dL Normal 1.5 - 3.8 G/dL ADM SS Glucose [Mass/Vol] 217 mg/dL High 82 - 115 mg/dL ADM SS Hematocrit (Bld) [Volume fraction] 30.0 % Low 34.0 - 46.0 % AH Workflow SS Hemoglobin (Bld) [Mass/Vol] 10.4 G/dL Low 12.0 - 16.0 G/dL AH Workflow SS Lymphocytes (Bld) [#/Vol] 0.7 103/mcL Low 0.9 - 4.3 10^3/mcL Workflow SS Lymphocytes/100 WBC (Bld) 7.3 % Low 20.0 - 40.0 % Workflow SS Magnesium [Mass/Vol] 2.5 mg/dL High 1.6 - 2 .4 mg/dL ADM SS MCH (RBC) [Entitic mass] 32.3 pg Normal 27.0 - 33.0 pg Workflow SS MCHC 34.8 G/dL Normal 32.0 - 36.0 G/dL Workflow SS MCV (RBC) [Entitic vol] 92.9 fL Normal 80.0 - 99.0 fL Workflow SS Monocytes (Bld) [#/Vol] 0.7 103/mcL Normal 0.1 - 1.4 10^3/mcL AH Workflow SS Monocytes/100 WBC (Bld) 6.6 % Normal 2.0 - 13.0 % AH Workflow SS Neutrophils (Bld) [#/Vol] 8.5 103/mcL High 2.3 - 8.1 10^3/mcL AH Workflow SS Neutrophils/100 WBC (Bld) 86.0 % High 50.0 - 75.0 % AH Workflow SS Phosphate [Mass/Vol] 3.2 mg/dL Normal 2.4 - 5 .1 mg/dL ADM SS Comment on above: Interpretive Data: * *Note - New Reference Range in effect 19 Platelet mean volume (Bld) [Entitic vol] 8.2 fL Normal 6.6 - 10.5 fL Workflow SS Platelets (Bld) [#/Vol] 139 103/mcL Low 150 - 450 10^3/mcL Workflow SS Potassium [Moles/Vol] 4.4 mmol/L Normal 3.5 - 5.0 mEq/L ADM SS Protein [Mass/Vol] 5.3 G/dL Low 5.7 - 8.2 G/dL ADM SS Comment on above: Interpretive Data: * *Note - New Reference Range in effect 19 RBC (Bld) [#/Vol] 3.23 106/mcL Low 4.10 - 5.3 0 10^6/mcL Workflow SS Sodium [Moles/Vol] 139 mmol/L Normal 136 - 145 mEq/L ADM SS Urea nitrogen [Mass/Vol] 16.0 mg/dL Normal 8.0 - 22.0 mg/dL ADM SS Urea nitrogen/Creatinine [Mass ratio] 18.2 ratio Normal 10.0 - 22.0 ratio ADM SS WBC (Bld) [#/Vol] 9.9 103/mcL Normal 4.5 - 10.8 10^3/mcL Workflow SS LABORATORYOrdered By: Margaret Frederick on 02-25-2023 Cholesterol [Mass/Vol] 83 mg/dL Normal 50 - 199 mg/dL ADM SS Comment on above: Interpretive Data: C holesterol Reference Interval: Less than 200 Desirable 200-239 Borderline high risk 240 and above High risk Cholesterol in HDL [Mass/Vol] 36 mg/dL Low 40 - 59 mg/dL ADM SS Cholesterol in LDL [Mass/Vol] 37 mg/dL Normal 0 - 129 mg/dL ADM SS Triglyceride [Mass/Vol] 49 mg/dL Normal 3 - 149 mg/dL ADM LABORATORYOrdered By: Guero Pineda on 02-25-2023 PT Coag (PPP) [Time] 12.6 s Normal 9.0 - 1 4.2 seconds [facility] Comment on above: Interpretive Data: E ffective 09/05/07, Protime results may be affected by some antibiotics (i.e. Ciprofloxacin, Azithromycin, Bactrim) which may potentiate the action of oral anticoagulants, with further increases in Protime/INR. PT International Ratio 1.1 ratio Invalid Interpretation Code [facility] Comment on above: Interpretive Data: Ruth rcow [employer] (CHEST, 1991, 102:[id number]) recommended therapeutic range for oral anticoagulant therapy is: LOW RISK: Prophylaxis of venous thrombosis INR: 2.0-3.0 Treatment of pulmonary embolism 2.0-3.0 Prevention of systemic embolism 2.0-3.0 HIGH RISK: Mechanical prosthetic valves 2.5-3.5 PT Coag (PPP) [Time] 12.3 s Normal 9.0 - 1 4.2 seconds [facility] Comment on above: Interpretive Data: E ffective 09/05/07, Protime results may be affected by some antibiotics (i.e. Ciprofloxacin, Azithromycin, Bactrim) which may potentiate the action of oral anticoagulants, with further increases in Protime/INR. PT International Ratio 1.1 ratio Invalid Interpretation Code [facility] Comment on above: Interpretive Data: Ruth crow [employer] (CHEST, 1991, 102:[id number]) recommended therapeutic range for oral anticoagulant therapy is: LOW RISK: Prophylaxis of venous thrombosis INR: 2.0-3.0 Treatment of pulmonary embolism 2.0-3.0 Prevention of systemic embolism 2.0-3.0 HIGH RISK: Mechanical prosthetic valves 2.5-3.5 LIPIDon 02-25-2023 Cholesterol [Mass/Vol] 83 mg/dL Normal 50-199 [facility] ([place]) Comment on above: Result Comment: Chol esterol Reference Interval: Less than 200 Desirable 200-239 Borderline high risk 240 and above High risk Performed By: #### P LT, FIB, PRO #### [address] [address] Cholesterol in HDL [Mass/Vol] 36 mg/dL Low 40-59 [facility] ([place]) Comment on above: Performed By: #### P LT, FIB, PRO #### [address] [address] Cholesterol in LDL [Mass/Vol] 37 mg/dL Normal 0-129 [facility] ([place]) Comment on above: Performed By: #### P LT, FIB, PRO #### [address] [address] Triglyceride [Mass/Vol] 49 mg/dL Normal 3-149 [facility] ([place]) Comment on above: Performed By: #### P LT, FIB, PRO #### [address] [address] MGon 02-25-2023 Magnesium [Mass/Vol] 2.5 mg/dL High 1.6-2.4 Replaced by [facility] ([place]) Comment on above: Performed By: #### P LT, FIB, PRO #### [address] [address] PHOSon 02-25-2023 Phosphate [Mass/Vol] 3.2 mg/dL Normal 2.4-5.1 Replaced by [facility] ([place]) Comment on above: Result Comment: No te - New Reference Range in effect 19 Performed By: #### P LT, FIB, PRO #### [address] [address] PLTon 02-25-2023 Platelet 120 10 3/mcL Low 150-450 [facility] ([place]) Comment on above: Performed By: #### A DEBRA GALLARDO #### [address] [address] PROon 02-25-2023 INR Coag (PPP) [Relative time] 1.1 {INR} Normal [facility] ([place]) Comment on above: Result Comment: [employer] (CHEST, 1992, 102:[id number]) recommended therapeutic range for oral anticoagulant therapy is: LOW RISK: Prophylaxis of venous thrombosis INR: 2.0-3.0 Treatment of pulmonary embolism 2.0-3.0 Prevention of systemic embolism 2.0-3.0 HIGH RISK: Mechanical prosthetic valves 2.5-3.5 Performed By: #### A DEBRA GALLARDO #### [facility] [address] [place] [id number] PT Coag (PPP) [Time] 12.6 s Normal 9.0-14.2 Replaced by [facility] ([place]) Comment on above: Result Comment: Effe ctive 09/05/07, Protime results may be affected by some antibiotics (i.e. Ciprofloxacin, Azithromycin, Bactrim) which may potentiate the action of oral anticoagulants, with further increases in Protime/INR. Performed By: #### A DEBRA GALLARDO #### [address] [address] INR Coag (PPP) [Relative time] 1.1 {INR} Normal [facility] ([place]) Comment on above: Result Comment: [employer] (CHEST, 1992, 102:[id number]) recommended therapeutic range for oral anticoagulant therapy is: LOW RISK: Prophylaxis of venous thrombosis INR: 2.0-3.0 Treatment of pulmonary embolism 2.0-3.0 Prevention of systemic embolism 2.0-3.0 HIGH RISK: Mechanical prosthetic valves 2.5-3.5 Performed By: #### P RO ####[address] [address] PT Coag (PPP) [Time] 12.3 s Normal 9.0-14.2 Replaced by [facility] ([place]) Comment on above: Result Comment: Effe ctive 09/05/07, Protime results may be affected by some antibiotics (i.e. Ciprofloxacin, Azithromycin, Bactrim) which may potentiate the action of oral anticoagulants, with further increases in Protime/INR. Performed By: #### P RO ####[facility] [place] [id number] .Auto Diffon 02-24-2023 Basophil, Absolute 0.0 10 3/mcL Normal 0.0-0.3 Replaced by [facility] ([place]) Comment on above: Performed By: #### P LT, FIB, PRO #### [address] [address] Basophils/100 WBC (Bld) 0.2 % Normal 0.0-2.5 [facility] ([place]) Comment on above: Performed By: #### P LT, FIB, PRO #### [address] [address] Eosinophil, Absolute 0.0 10 3/mcL Normal 0.0-0.7 [facility] ([place]) Comment on above: Performed By: #### P LT, FIB, PRO #### [address] [address] Eosinophils/100 WBC (Bld) 0.5 % Normal 0.0-6.0 [facility] ([place]) Comment on above: Performed By: #### P LT, FIB, PRO #### [address] [address] Lymphocyte, Absolute 0.8 10 3/mcL Low 0.9-4.3 [facility] ([place]) Comment on above: Performed By: #### P LT, FIB, PRO #### [address] [address] Lymphocytes/100 WBC (Bld) 7.6 % Low 20.0-40.0 [facility] ([place]) Comment on above: Performed By: #### P LT, FIB, PRO #### [address] [address] Monocyte, Absolute 0.2 10 3/mcL Normal 0.1-1.4 Replaced by [facility] ([place]) Comment on above: Performed By: #### P LT, FIB, PRO #### [address] [address] Monocytes/100 WBC (Bld) 2.3 % Normal 2.0-13.0 [facility] ([place]) Comment on above: Performed By: #### P LT, FIB, PRO #### [address] [address] Neutrophils/100 WBC (Bld) 89.4 % High 50.0-75.0 [facility] ([place]) Comment on above: Performed By: #### P LT, FIB, PRO #### [address] [address] .GFRon 02-24-2023 GFR >60 Normal Replaced by [facility] ([place]) Comment on above: Result Comment: GFR Population mean for , Non- Americans Ages 20-29 = 116 mL/min/1.73 sq.m. Ages 30-39 = 107 mL/min/1.73 sq.m. Ages 40-49 = 99 mL/min/1.73 sq.m. Ages 50-59 = 93 mL/min/1.73 sq.m. Ages 60-69 = 85 mL/min/1.73 sq.m. Ages 70+ = 75 mL/min/1.73 sq.m. Chronic Kidney Disease: Less than 60 mL/min/1.73 square meters End Stage Renal Disease: Less than 15 mL/min/1.73 square meters Performed By: #### P LT, FIB, PRO #### [place] [address] GFR Non- 59 ml/min/1.73sqm Normal [facility] ([place]) Comment on above: Result Comment: GFR Population mean for , Non- Americans Ages 20-29 = 116 mL/min/1.73 sq.m. Ages 30-39 = 107 mL/min/1.73 sq.m. Ages 40-49 = 99 mL/min/1.73 sq.m. Ages 50-59 = 93 mL/min/1.73 sq.m. Ages 60-69 = 85 mL/min/1.73 sq.m. Ages 70+ = 75 mL/min/1.73 sq.m. Chronic Kidney Disease: Less than 60 mL/min/1.73 square meters End Stage Renal Disease: Less than 15 mL/min/1.73 square meters Performed By: #### P LT, FIB, PRO #### [address] [address] .NEUABSon 02-24-2023 Neutrophil, Absolute 9.4 10 3/mcL High 2.3-8.1 [facility] ([place]) Comment on above: Performed By: #### P LT, FIB, PRO #### [address] [address] APTTon 02-24-2023 aPTT Coag (Bld) [Time] 31.9 s Normal 25.0-35.0 [facility] ([place]) Comment on above: Result Comment: For Heparin anticoagulation therapy, the recommended therapeutic range is: 54-77 seconds (APTT Correlation with Anti-Xa therapeutic range of 0.3-0.7 units/ml). PLEASE REFERENCE THE PHARMACY PROTOCOL FOR DOSING. Performed By: #### P LT, FIB, PRO #### [address] [address] Heparin dose (APTT) Unknown Normal [facility] ([place]) Comment on above: Performed By: #### P LT, FIB, PRO #### [address] [address] BGRPon 02-24-2023 Base Excess - POC -0.9 mmol/L Normal [facility] ([place]) Comment on above: Performed By: #### A DEBRA GALLARDO #### [address] [address] CO2 [Moles/Vol] 27.0 mmol/L Normal 22.0-30.0 [facility] ([place]) Comment on above: Performed By: #### DEBRA SHEA #### [address] [address] HCO3 (Bld) [Moles/Vol] 25.4 mmol/L Normal 21.0-29.0 [facility] ([place]) Comment on above: Performed By: #### DEBRA SHEA #### [address] [address] Oxygen saturation in Blood 99.4 % High 92.0-96.0 [facility] ([place]) Comment on above: Performed By: #### DEBRA SHEA #### [address] [address] PCO2 - POC 49.8 mmHg High 32.0-46.0 [facility] ([place]) Comment on above: Performed By: #### A DEBRA GALLARDO #### [address] [address] pH (poct) - POC 7.326 Low 7.380-7.460 [facility] ([place]) Comment on above: Performed By: #### A DEBRA GALLARDO #### [address] [address] PO2 - POC 323.5 mmHg High 74.0-108.0 [facility] ([place]) Comment on above: Performed By: #### A DEBRA GALLARDO #### [address] [address] PCO2 - POC 54.8 mmHg High 32.0-46.0 [facility] ([place]) Comment on above: Performed By: #### G LURP, BGRP, CLRP, HGBRP, NARP, KRP, CARP, HCTRP ####[address] [address] pH (poct) - POC 7.309 Low 7.380-7.460 [facility] ([place]) Comment on above: Performed By: #### G LURP, BGRP, CLRP, HGBRP, NARP, KRP, CARP, HCTRP ####[address] [address] PO2 - POC 331.5 mmHg High 74.0-108.0 [facility] ([place]) Comment on above: Performed By: #### G LURP, BGRP, CLRP, HGBRP, NARP, KRP, CARP, HCTRP ####[address] [address] Base Excess - POC -0.6 mmol/L Normal [facility] ([place]) Comment on above: Performed By: #### N ALEX, CARP, GLURP, HGBRP, BGRP, KRP, HCTRP, CLRP #### [address] [address] CO2 [Moles/Vol] 25.7 mmol/L Normal 22.0-30.0 [facility] ([place]) Comment on above: Performed By: #### N ALEX, CARP, GLURP, HGBRP, BGRP, KRP, HCTRP, CLRP #### [place] [id number] HCO3 (Bld) [Moles/Vol] 24.4 mmol/L Normal 21.0-29.0 [facility] ([place]) Comment on above: Performed By: #### N ALEX, CARP, GLURP, HGBRP, BGRP, KRP, HCTRP, CLRP #### [place] [address] Oxygen saturation in Blood 99.4 % High 92.0-96.0 [facility] ([place]) Comment on above: Performed By: #### N ALEX, CARP, GLURP, HGBRP, BGRP, KRP, HCTRP, CLRP #### [place] [address] PCO2 - POC 41.6 mmHg Normal 32.0-46.0 [facility] ([place]) Comment on above: Performed By: #### N ALEX, CARP, GLURP, HGBRP, BGRP, KRP, HCTRP, CLRP #### [place] [address] pH (poct) - POC 7.386 Normal 7.380-7.460 [facility] ([place]) Comment on above: Performed By: #### N ALEX, CARP, GLURP, HGBRP, BGRP, KRP, HCTRP, CLRP #### [place] [address] PO2 - POC 451.2 mmHg High 74.0-108.0 [facility] ([place]) Comment on above: Performed By: #### N ALEX, CARP, GLURP, HGBRP, BGRP, KRP, HCTRP, CLRP #### [place] [id number] BGRPOrdered By: HEENA Pizarro on 02-24-2023 Base Excess - POC 0.0 mmol/L Normal AH Rapi d Comm SS Comment on above: Performed By: #### G LURP, BGRP, CLRP, HGBRP, NARP, KRP, CARP, HCTRP ####[place] [id number] [address] [place] [address] CO2 [Moles/Vol] 28.6 mmol/L Normal 22.0-30.0 AH Rapid Comm SS Comment on above: Performed By: #### G LURP, BGRP, CLRP, HGBRP, NARP, KRP, CARP, HCTRP ####[address] [address] HCO3 (Bld) [Moles/Vol] 26.9 mmol/L Normal 21.0-29.0 Rapid Comm SS Comment on above: Performed By: #### G LURP, BGRP, CLRP, HGBRP, NARP, KRP, CARP, HCTRP ####[address] [address] Oxygen saturation in Blood 99.1 % High 92.0-96.0 Rapid Comm SS Comment on above: Performed By: #### G LURP, BGRP, CLRP, HGBRP, NARP, KRP, CARP, HCTRP ####[address] [address] BMPon 02-24-2023 BUN/Creatinine Ratio 18.5 ratio Normal 10.0-22.0 Replaced by [facility] ([place]) Comment on above: Performed By: #### P LT, FIB, PRO #### [address] [address] Calcium [Mass/Vol] 8.8 mg/dL Normal 8.7-10.4 [facility] ([place]) Comment on above: Performed By: #### P LT, FIB, PRO #### [address] [address] Chloride [Moles/Vol] 112 mmol/L High 98-110 Replaced by [facility] ([place]) Comment on above: Performed By: #### P LT, FIB, PRO #### [address] [address] CO2 [Moles/Vol] 29 mmol/L Normal 22-32 [facility] ([place]) Comment on above: Performed By: #### P LT, FIB, PRO #### [address] [address] Creatinine [Mass/Vol] 0.92 mg/dL Normal 0.50-1.20 [facility] ([place]) Comment on above: Performed By: #### P LT, FIB, PRO #### [address] [address] Electrolyte Balance 4.0 mEq/L Normal 4.0-15.0 [facility] ([place]) Comment on above: Performed By: #### P LT, FIB, PRO #### [address] [address] Glucose [Mass/Vol] 149 mg/dL High 82-115 [facility] ([place]) Comment on above: Performed By: #### P LT, FIB, PRO #### [address] [address] Potassium [Moles/Vol] 4.1 mmol/L Normal 3.5-5.0 [facility] ([place]) Comment on above: Performed By: #### P LT, FIB, PRO #### [address] [address] Sodium [Moles/Vol] 145 mmol/L Normal 136-145 [facility] ([place]) Comment on above: Performed By: #### P LT, FIB, PRO #### [address] [address] Urea nitrogen [Mass/Vol] 17.0 mg/dL Normal 8.0-22.0 [facility] ([place]) Comment on above: Performed By: #### P LT, FIB, PRO #### [address] [address] CARPon 02-24-2023 Ionized Calcium - POC 1.31 mmol/L Normal 1.12-1.32 [facility] ([place]) Comment on above: Performed By: #### A DEBRA GALLARDO #### [address] [address] Ionized Calcium - POC 1.14 mmol/L Normal 1.12-1.32 [facility] ([place]) Comment on above: Performed By: #### P LT, FIB, PRO #### [place] [address] CARPOrdered By: HEENA Pizarro on 02-24-2023 Ionized Calcium - POC 1.33 mmol/L High 1.12-1.32 AH Rapid Comm SS Comment on above: Performed By: #### G LURP, BGRP, CLRP, HGBRP, NARP, KRP, CARP, HCTRP ####[place] [address] CBCon 02-24-2023 Erythrocyte distribution width (RBC) [Ratio] 13.5 % Normal 11.5-15.5 [facility] ([place]) Comment on above: Performed By: #### P LT, FIB, PRO #### [place] [address] Hematocrit (Bld) [Volume fraction] 30.9 % Low 34.0-46.0 [facility] ([place]) Comment on above: Performed By: #### P LT, FIB, PRO #### [place] [address] Hgb 10.7 G/dL Low 12.0-16.0 [facility] ([place]) Comment on above: Performed By: #### P LT, FIB, PRO #### [place] [address] MCH (RBC) [Entitic mass] 32.2 pg Normal 27.0-33.0 [facility] ([place]) Comment on above: Performed By: #### P LT, FIB, PRO #### [place] [address] MCHC 34.5 G/dL Normal 32.0-36.0 [facility] ([place]) Comment on above: Performed By: #### P LT, FIB, PRO #### [place] [address] MCV (RBC) [Entitic vol] 93.1 fL Normal 80.0-99.0 [facility] ([place]) Comment on above: Performed By: #### P LT, FIB, PRO #### [place] [address] Platelet 123 10 3/mcL Low 150-450 [facility] ([place]) Comment on above: Performed By: #### P LT, FIB, PRO #### [place] [address] Platelet mean volume (Bld) [Entitic vol] 7.8 fL Normal 6.6-10.5 [facility] ([place]) Comment on above: Performed By: #### P LT, FIB, PRO #### [place] [address] RBC 3.32 10 6/mcL Low 4.10-5.30 [facility] ([place]) Comment on above: Performed By: #### P LT, FIB, PRO #### [place] [address] WBC 10.5 10 3/mcL Normal 4.5-10.8 [facility] ([place]) Comment on above: Performed By: #### P LT, FIB, PRO #### [place] [address] CLRPon 02-24-2023 Chloride [Moles/Vol] 108 mmol/L Normal 98-110 Replaced by [facility] ([place]) Comment on above: Performed By: #### A DEBRA GALLARDO #### [place] [address] Chloride [Moles/Vol] 106 mmol/L Normal 98-110 Replaced by [facility] ([place]) Comment on above: Performed By: #### P LT, FIB, PRO #### [place] [address] CLRPOrdered By: SYSTEM SYSTE M on 02-24-2023 Chloride [Moles/Vol] 109 mmol/L Normal 98-110 AH R apid Comm SS Comment on above: Performed By: #### G LURP, BGRP, CLRP, HGBRP, NARP, KRP, CARP, HCTRP ####[place] [address] FIBon 02-24-2023 Fibrinogen 407 mg/dL Normal 250-560 [facility] ([place]) Comment on above: Performed By: #### P LT, FIB, PRO #### [address] [address] GLURPon 02-24-2023 Glucose [Mass/Vol] 141 mg/dL High 82-115 [facility] ([place]) Comment on above: Performed By: #### A DEBRA GALLARDO #### [address] [address] Glucose [Mass/Vol] 103 mg/dL Normal 82-115 [facility] ([place]) Comment on above: Performed By: #### P LT, FIB, PRO #### [address] [address] GLURPOrdered By: SYSTEM SYST EM on 02-24-2023 Glucose [Mass/Vol] 163 mg/dL High 82-115 AH Rap id Comm SS Comment on above: Performed By: #### G LURP, BGRP, CLRP, HGBRP, NARP, KRP, CARP, HCTRP ####[place] [address] HCTRPon 02-24-2023 Hematocrit (Bld) [Volume fraction] 32.0 % Low 37.0-47.0 [facility] ([place]) Comment on above: Performed By: #### A DEBRA GALLARDO #### [place] [address] Hematocrit (Bld) [Volume fraction] 37.0 % Normal 37.0-47.0 [facility] ([place]) Comment on above: Performed By: #### P LT, FIB, PRO #### [place] [address] HCTRPOrdered By: SYSTEM SYST EM on 02-24-2023 Hematocrit (Bld) [Volume fraction] 31.0 % Low 37.0-47.0 AH Rapid Comm SS Comment on above: Performed By: #### G LURP, BGRP, CLRP, HGBRP, NARP, KRP, CARP, HCTRP ####[place] [address] HGBRPon 02-24-2023 Hemoglobin (POC) 11.0 G/dL Low 12.0-16.0 [facility] ([place]) Comment on above: Performed By: #### A DEBRA GALLARDO #### [place] [address] Hemoglobin (POC) 12.5 G/dL Normal 12.0-16.0 [facility] ([place]) Comment on above: Performed By: #### P LT, FIB, PRO #### [place] [address] HGBRPOrdered By: SYSTEM SYST EM on 02-24-2023 Hemoglobin (POC) 10.7 G/dL Low 12.0-16.0 Rapid Comm SS Comment on above: Performed By: #### G LURP, BGRP, CLRP, HGBRP, NARP, KRP, CARP, HCTRP ####[place] [address] HHon 02-24-2023 Hematocrit (Bld) [Volume fraction] 31.7 % Low 34.0-46.0 [facility] ([place]) Comment on above: Performed By: #### P LT, FIB, PRO #### [place] [address] Hgb 10.9 G/dL Low 12.0-16.0 [facility] ([place]) Comment on above: Performed By: #### P LT, FIB, PRO #### [place] [address] KRPon 02-24-2023 Potassium [Moles/Vol] 3.9 mmol/L Normal 3.5-5.0 [facility] ([place]) Comment on above: Performed By: #### A DEBRA GALLARDO #### [place] [address] Potassium [Moles/Vol] 3.9 mmol/L Normal 3.5-5.0 [facility] ([place]) Comment on above: Performed By: #### P LT, FIB, PRO #### [place] [address] KRPOrdered By: SYSTEM SYSTEM on 02-24-2023 Potassium [Moles/Vol] 4.1 mmol/L Normal 3.5-5.0 AH Rapid Comm SS Comment on above: Performed By: #### G LURP, BGRP, CLRP, HGBRP, NARP, KRP, CARP, HCTRP ####[place] [id number] [place] [address] LABORATORYOrdered By: SYSTEM SYSTEM on 02-24-2023 Basophils (Bld) [#/Vol] 0.0 103/mcL Normal 0.0 - 0.3 10^3/mcL AH Workflow SS Basophils/100 WBC (Bld) 0.2 % Normal 0.0 - 2.5 % AH Workflow SS Eosinophils (Bld) [#/Vol] 0.0 103/mcL Normal 0.0 - 0.7 10^3/mcL AH Workflow SS Eosinophils/100 WBC (Bld) 0.5 % Normal 0.0 - 6.0 % AH Workflow SS Erythrocyte distribution width (RBC) [Ratio] 13.5 % Normal 11.5 - 15.5 % AH Workflow SS Lymphocytes (Bld) [#/Vol] 0.8 103/mcL Low 0.9 - 4.3 10^3/mcL AH Workflow SS Lymphocytes/100 WBC (Bld) 7.6 % Low 20.0 - 40.0 % AH Workflow SS MCH (RBC) [Entitic mass] 32.2 pg Normal 27.0 - 33.0 pg AH Workflow SS MCHC 34.5 G/dL Normal 32.0 - 36.0 G/dL AH Workflow SS MCV (RBC) [Entitic vol] 93.1 fL Normal 80.0 - 99.0 fL AH Workflow SS Monocytes (Bld) [#/Vol] 0.2 103/mcL Normal 0.1 - 1.4 10^3/mcL AH Workflow SS Monocytes/100 WBC (Bld) 2.3 % Normal 2.0 - 13.0 % AH Workflow SS Neutrophils (Bld) [#/Vol] 9.4 103/mcL High 2.3 - 8.1 10^3/mcL AH Workflow SS Neutrophils/100 WBC (Bld) 89.4 % High 50.0 - 75.0 % AH Workflow SS Platelet mean volume (Bld) [Entitic vol] 7.8 fL Normal 6.6 - 10.5 fL AH Workflow SS RBC (Bld) [#/Vol] 3.32 106/mcL Low 4.10 - 5.3 0 10^6/mcL Workflow SS WBC (Bld) [#/Vol] 10.5 103/mcL Normal 4.5 - 10.8 10^3/mcL Workflow SS Base Excess - POC -0.9 mmol/L Invalid Interpretation Code Rapid Comm SS Chloride [Moles/Vol] 108 mmol/L Normal 98 - 11 0 mEq/L Rapid Comm SS CO2 [Moles/Vol] 27.0 mmol/L Normal 22.0 - 30.0 mmol/L Rapid Comm SS Glucose [Mass/Vol] 141 mg/dL High 82 - 115 mg/dL Rapid Comm SS HCO3 (Bld) [Moles/Vol] 25.4 mmol/L Normal 21.0 - 29.0 mmol/L Rapid Comm SS Hematocrit (Bld) [Volume fraction] 32.0 % Low 37.0 - 47.0 % Rapid Comm SS Hemoglobin (POC) 11.0 G/dL Low 12.0 - 16.0 G/dL Rapid Comm SS Ionized Calcium - POC 1.31 mmol/L Normal 1.12 - 1.32 mmol/L Rapid Comm SS Oxygen saturation in Blood 99.4 % High 92.0 - 96.0 % Rapid Comm SS PCO2 - POC 49.8 mm[Hg] High 32.0 - 46.0 mm Hg Rapid Comm SS pH (Bld) 7.326 [pH] Low 7.380 - 7.460 Rapid Comm SS PO2 - POC 323.5 mm[Hg] High 74.0 - 108.0 mm Hg Rapid Comm SS Potassium [Moles/Vol] 3.9 mmol/L Normal 3.5 - 5.0 mEq/L Rapid Comm SS Sodium [Moles/Vol] 141 mmol/L Normal 136 - 145 mEq/L Rapid Comm SS PCO2 - POC 54.8 mm[Hg] High 32.0 - 46.0 mm Hg Rapid Comm SS pH (Bld) 7.309 [pH] Low 7.380 - 7.460 Rapid Comm SS PO2 - POC 331.5 mm[Hg] High 74.0 - 108.0 mm Hg Rapid Comm SS Base Excess - POC -0.6 mmol/L Invalid Interpretation Code Rapid Comm SS Chloride [Moles/Vol] 106 mmol/L Normal 98 - 11 0 mEq/L Rapid Comm SS CO2 [Moles/Vol] 25.7 mmol/L Normal 22.0 - 30.0 mmol/L Rapid Comm SS Glucose [Mass/Vol] 103 mg/dL Normal 82 - 115 mg/dL Rapid Comm SS HCO3 (Bld) [Moles/Vol] 24.4 mmol/L Normal 21.0 - 29.0 mmol/L AH Rapid Comm SS Hematocrit (Bld) [Volume fraction] 37.0 % Normal 37.0 - 47.0 % Rapid Comm SS Hemoglobin (POC) 12.5 G/dL Normal 12.0 - 16.0 G/dL Rapid Comm SS Ionized Calcium - POC 1.14 mmol/L Normal 1.12 - 1.32 mmol/L Rapid Comm SS Oxygen saturation in Blood 99.4 % High 92.0 - 96.0 % Rapid Comm SS PCO2 - POC 41.6 mm[Hg] Normal 32.0 - 46.0 mm Hg Rapid Comm SS pH (Bld) 7.386 [pH] Normal 7.380 - 7.460 Rapid Comm SS PO2 - POC 451.2 mm[Hg] High 74.0 - 108.0 mm Hg Rapid Comm SS Potassium [Moles/Vol] 3.9 mmol/L Normal 3.5 - 5.0 mEq/L Rapid Comm SS Sodium [Moles/Vol] 140 mmol/L Normal 136 - 145 mEq/L Rapid Comm SS LABORATORYOrdered By: Erickson Harmon on 02-24-2023 aPTT Coag (Bld) [Time] 31.9 s Normal 25.0 - 35.0 seconds [facility] SS Comment on above: Interpretive Data: F or Heparin anticoagulation therapy, the recommended therapeutic range is: 54-77 seconds (APTT Correlation with Anti-Xa therapeutic range of 0.3-0.7 units/ml). PLEASE REFERENCE THE PHARMACY PROTOCOL FOR DOSING. Fibrinogen 407 mg/dL Normal 250 - 560 mg/dL [facility] SS Heparin dose (APTT) Unknown (02/24/23 10:19 AM) Normal AH Coagulation S NARPon 02-24-2023 Sodium [Moles/Vol] 141 mmol/L Normal 136-145 [facility] ([place]) Comment on above: Performed By: #### A DEBRA GALLARDO #### [place] [address] Sodium [Moles/Vol] 140 mmol/L Normal 136-145 [facility] ([place]) Comment on above: Performed By: #### P LT, FIB, PRO #### [place] [address] NARPOrdered By: SYSTEM SYSTE M on 02-24-2023 Sodium [Moles/Vol] 140 mmol/L Normal 136-145 AH Rap id Comm SS Comment on above: Performed By: #### G LURP, BGRP, CLRP, HGBRP, NARP, KRP, CARP, HCTRP ####[place] [address] PLTon 02-24-2023 Platelet 121 10 3/mcL Low 150-450 [facility] ([place]) Comment on above: Performed By: #### P LT, FIB, PRO #### [place] [address] Platelet 185 10 3/mcL Normal 150-450 [facility] ([place]) Comment on above: Performed By: #### P LT, FIB, PRO #### [place] [address] PROon 02-24-2023 INR Coag (PPP) [Relative time] 1.1 {INR} Normal [facility] ([place]) Comment on above: Result Comment: [employer] (CHEST, 1991, 102:312S-25S) recommended therapeutic range for oral anticoagulant therapy is: LOW RISK: Prophylaxis of venous thrombosis INR: 2.0-3.0 Treatment of pulmonary embolism 2.0-3.0 Prevention of systemic embolism 2.0-3.0 HIGH RISK: Mechanical prosthetic valves 2.5-3.5 Performed By: #### A DEBRA GALLARDO #### [place] [address] PT Coag (PPP) [Time] 12.4 s Normal 9.0-14.2 Replaced by [facility] ([place]) Comment on above: Result Comment: Effe ctive 09/05/07, Protime results may be affected by some antibiotics (i.e. Ciprofloxacin, Azithromycin, Bactrim) which may potentiate the action of oral anticoagulants, with further increases in Protime/INR. Performed By: #### A DEBRA GALLARDO #### [address] [address] INR Coag (PPP) [Relative time] 1.0 {INR} Normal [facility] ([place]) Comment on above: Result Comment: [employer] (CHEST, 1991, 102:312S-25S) recommended therapeutic range for oral anticoagulant therapy is: LOW RISK: Prophylaxis of venous thrombosis INR: 2.0-3.0 Treatment of pulmonary embolism 2.0-3.0 Prevention of systemic embolism 2.0-3.0 HIGH RISK: Mechanical prosthetic valves 2.5-3.5 Performed By: #### P LT, FIB, PRO #### [address] [address] PT Coag (PPP) [Time] 11.4 s Normal 9.0-14.2 Replaced by [facility] ([place]) Comment on above: Result Comment: Effe ctive 09/05/07, Protime results may be affected by some antibiotics (i.e. Ciprofloxacin, Azithromycin, Bactrim) which may potentiate the action of oral anticoagulants, with further increases in Protime/INR. Performed By: #### P LT, FIB, PRO #### [address] [address] RBC (Product)on 02-24-2023 RBC Product Ready RBC Ready for Pickup Normal [facility] ([place]) Comment on above: Performed By: #### P LT, FIB, PRO #### [address] [address] XR CHEST 1 VIEWon 02-24-2023 XR CHEST 1 VIEW ORIGINAL EXAMINATION: ONE XRAY VIEW OF THE CHEST02/24/2023 4:20 pm COMPARISON: Chest x-ray 02/26/2019, CT chest 05/23/2019 HISTORY: ORDERING SYSTEM PROVIDED HISTORY: Reason for Exam: Abnormal Breath Sounds FINDINGS: Right-sided central venous catheter tip terminates over the superior cavoatrial junction. An enteric tube crosses the diaphragm a midline with tip not included within the field of view. Bilateral emphysematous changes again noted. Coarse interstitial markings seen bilaterally however not significantly changed from the prior examination.. Projecting over the right heart border, partially obscured by overlying EKG lead, is a nodular opacity correlating with the previously seen nodule on the 05/23/2019 study. Other nodules described previously are poorly evaluated on this study. No pleural effusion or visible pneumothorax. Ectatic and calcified aortic arch. IMPRESSION: Emphysematous changes with coarse interstitial markings particularly in the upper lobes stable from prior exam. Previously identified pulmonary nodules are poorly evaluated on this study. Support devices as above. Preliminary Report was Dictated by a Resident I have personally reviewed all of the images of this examination and agree with the resident findings and interpretation. Interpreted by: Trae Cleary MD Preliminary Report By: Ra Rae Electronically signed By Trae Cleary MD Dictated Date: 02/24/2023 4:34:05 PM Prelim Date: 02/24/2023 4:45:56 PM Sign Date: 02/24/2023 5:29:28 PM Ordering Provider: ROBERT Henderson [facility] ([place]) .Auto Diffon 02-22-2023 Basophil, Absolute 0.0 10 3/mcL Normal 0.0-0.3 Replaced by [facility] ([place]) Comment on above: Performed By: #### P LT, FIB, PRO #### [address] [address] Basophils/100 WBC (Bld) 0.7 % Normal 0.0-2.5 [facility] ([place]) Comment on above: Performed By: #### P LT, FIB, PRO #### [address] [address] Eosinophil, Absolute 0.1 10 3/mcL Normal 0.0-0.7 [facility] ([place]) Comment on above: Performed By: #### P LT, FIB, PRO #### [address] [address] Eosinophils/100 WBC (Bld) 2.3 % Normal 0.0-6.0 [facility] ([place]) Comment on above: Performed By: #### P LT, FIB, PRO #### [address] [address] Lymphocyte, Absolute 1.4 10 3/mcL Normal 0.9-4.3 [facility] ([place]) Comment on above: Performed By: #### P LT, FIB, PRO #### [address] [address] Lymphocytes/100 WBC (Bld) 23.1 % Normal 20.0-40.0 [facility] ([place]) Comment on above: Performed By: #### P LT, FIB, PRO #### [address] [address] Monocyte, Absolute 0.4 10 3/mcL Normal 0.1-1.4 Replaced by [facility] ([place]) Comment on above: Performed By: #### P LT, FIB, PRO #### [address] [address] Monocytes/100 WBC (Bld) 7.3 % Normal 2.0-13.0 [facility] ([place]) Comment on above: Performed By: #### P LT, FIB, PRO #### [address] [address] Neutrophils/100 WBC (Bld) 66.6 % Normal 50.0-75.0 [facility] ([place]) Comment on above: Performed By: #### P LT, FIB, PRO #### [address] [address] .GFRon 02-22-2023 GFR >60 Normal Replaced by [facility] ([place]) Comment on above: Result Comment: GFR Population mean for , Non- Americans Ages 20-29 = 116 mL/min/1.73 sq.m. Ages 30-39 = 107 mL/min/1.73 sq.m. Ages 40-49 = 99 mL/min/1.73 sq.m. Ages 50-59 = 93 mL/min/1.73 sq.m. Ages 60-69 = 85 mL/min/1.73 sq.m. Ages 70+ = 75 mL/min/1.73 sq.m. Chronic Kidney Disease: Less than 60 mL/min/1.73 square meters End Stage Renal Disease: Less than 15 mL/min/1.73 square meters Performed By: #### P LT, FIB, PRO #### [address] [address] GFR Non- 51 ml/min/1.73sqm Normal [facility] ([place]) Comment on above: Result Comment: GFR Population mean for , Non- Americans Ages 20-29 = 116 mL/min/1.73 sq.m. Ages 30-39 = 107 mL/min/1.73 sq.m. Ages 40-49 = 99 mL/min/1.73 sq.m. Ages 50-59 = 93 mL/min/1.73 sq.m. Ages 60-69 = 85 mL/min/1.73 sq.m. Ages 70+ = 75 mL/min/1.73 sq.m. Chronic Kidney Disease: Less than 60 mL/min/1.73 square meters End Stage Renal Disease: Less than 15 mL/min/1.73 square meters Performed By: #### P LT, FIB, PRO #### [address] [address] .NEUABSon 02-22-2023 Neutrophil, Absolute 4.1 10 3/mcL Normal 2.3-8.1 [facility] ([place]) Comment on above: Performed By: #### P LT, FIB, PRO #### [address] [address] ABO/Rh (Gel)on 02-22-2023 ABO/Rh Interp Positive Invalid Interpretation Code [facility] ([place]) Comment on above: Performed By: #### A DEBRA GALLARDO #### [address] [address] ABS (Gel)on 02-22-2023 ABSC Interp (Gel) Negative Normal [facility] ([place]) Comment on above: Performed By: #### A DEBRA GALLARDO #### [address] [address] BMPon 02-22-2023 BUN/Creatinine Ratio 18.3 ratio Normal 10.0-22.0 Replaced by [facility] ([place]) Comment on above: Performed By: #### P LT, FIB, PRO #### [address] [address] Calcium [Mass/Vol] 9.2 mg/dL Normal 8.7-10.4 [facility] ([place]) Comment on above: Performed By: #### P LT, FIB, PRO #### [address] [address] Chloride [Moles/Vol] 109 mmol/L Normal 98-110 Replaced by [facility] ([place]) Comment on above: Performed By: #### P LT, FIB, PRO #### [address] [address] CO2 [Moles/Vol] 28 mmol/L Normal 22-32 [facility] ([place]) Comment on above: Performed By: #### P LT, FIB, PRO #### [address] [address] Creatinine [Mass/Vol] 1.04 mg/dL Normal 0.50-1.20 [facility] ([place]) Comment on above: Performed By: #### P LT, FIB, PRO #### [address] [address] Electrolyte Balance 2.0 mEq/L Low 4.0-15.0 [facility] ([place]) Comment on above: Performed By: #### P LT, FIB, PRO #### [address] [address] Glucose [Mass/Vol] 94 mg/dL Normal 82-115 [facility] ([place]) Comment on above: Performed By: #### P LT, FIB, PRO #### [address] [address] Potassium [Moles/Vol] 3.8 mmol/L Normal 3.5-5.0 [facility] ([place]) Comment on above: Performed By: #### P LT, FIB, PRO #### [address] [address] Sodium [Moles/Vol] 139 mmol/L Normal 136-145 [facility] ([place]) Comment on above: Performed By: #### P LT, FIB, PRO #### [place] [id number] Urea nitrogen [Mass/Vol] 19.0 mg/dL Normal 8.0-22.0 [facility] ([place]) Comment on above: Performed By: #### P LT, FIB, PRO #### [place] [address] CBCon 02-22-2023 Erythrocyte distribution width (RBC) [Ratio] 13.3 % Normal 11.5-15.5 [facility] ([place]) Comment on above: Performed By: #### P LT, FIB, PRO #### [place] [address] Hematocrit (Bld) [Volume fraction] 37.0 % Normal 34.0-46.0 [facility] ([place]) Comment on above: Performed By: #### P LT, FIB, PRO #### [place] [address] Hgb 12.7 G/dL Normal 12.0-16.0 [facility] ([place]) Comment on above: Performed By: #### P LT, FIB, PRO #### [place] [address] MCH (RBC) [Entitic mass] 31.7 pg Normal 27.0-33.0 [facility] ([place]) Comment on above: Performed By: #### P LT, FIB, PRO #### [place] [address] MCHC 34.3 G/dL Normal 32.0-36.0 [facility] ([place]) Comment on above: Performed By: #### P LT, FIB, PRO #### [place] [address] MCV (RBC) [Entitic vol] 92.4 fL Normal 80.0-99.0 [facility] ([place]) Comment on above: Performed By: #### P LT, FIB, PRO #### [place] [address] Platelet 156 10 3/mcL Normal 150-450 [facility] ([place]) Comment on above: Performed By: #### P LT, FIB, PRO #### [place] [address] Platelet mean volume (Bld) [Entitic vol] 8.2 fL Normal 6.6-10.5 [facility] ([place]) Comment on above: Performed By: #### P LT, FIB, PRO #### [address] [address] RBC 4.01 10 6/mcL Low 4.10-5.30 [facility] ([place]) Comment on above: Performed By: #### P LT, FIB, PRO #### [address] [address] WBC 6.1 10 3/mcL Normal 4.5-10.8 [facility] ([place]) Comment on above: Performed By: #### P LT, FIB, PRO #### [address] [address] LABORATORYOrdered By: Cristiana Boston on 02-22-2023 RBC Product Ready RBC Ready for Pickup (02/22/23 11:29 PM) Normal BB Manual SS LABORATORYOrdered By: Trae Velasquez on 02-22-2023 ABO and Rh group Nom (Bld) Blood group O Rh(D) positive Invalid Interpretation Code AH BB Auto SS Blood group antibody screen Ql Negative ABSC (02/22/23 1:06 PM) Normal AH BB Auto SS LABORATORYOrdered By: [employer] SYSTEM on 02-22-2023 Basophils (Bld) [#/Vol] 0.0 103/mcL Normal 0.0 - 0.3 10^3/mcL AH Workflow SS Basophils/100 WBC (Bld) 0.7 % Normal 0.0 - 2.5 % AH Workflow SS Calcium [Mass/Vol] 9.2 mg/dL Normal 8.7 - 10. 4 mg/dL AH ADM SS Chloride [Moles/Vol] 109 mmol/L Normal 98 - 11 0 mEq/L AH ADM SS CO2 [Moles/Vol] 28 mmol/L Normal 22 - 32 mEq/L AH ADM SS Creatinine [Mass/Vol] 1.04 mg/dL Normal 0.50 - 1.20 mg/dL AH ADM SS Electrolyte Balance 2.0 mEq/L Low 4.0 - 15 .0 mEq/L AH ADM SS Eosinophils (Bld) [#/Vol] 0.1 103/mcL Normal 0.0 - 0.7 10^3/mcL AH Workflow SS Eosinophils/100 WBC (Bld) 2.3 % Normal 0.0 - 6.0 % Workflow SS Erythrocyte distribution width (RBC) [Ratio] 13.3 % Normal 11.5 - 15.5 % Workflow SS GFR/1.73 sq M.predicted among blacks MDRD (S/P/Bld) [Vol rate/Area] ml/min/1.73sqm Invalid Interpretation Code Chemistry S Comment on above: Interpretive Data: GFR Population mean for , Non- Americans Ages 20-29 = 116 mL/min/1.73 sq.m. Ages 30-39 = 107 mL/min/1.73 sq.m. Ages 40-49 = 99 mL/min/1.73 sq.m. Ages 50-59 = 93 mL/min/1.73 sq.m. Ages 60-69 = 85 mL/min/1.73 sq.m. Ages 70+ = 75 mL/min/1.73 sq.m. Chronic Kidney Disease: Less than 60 mL/min/1.73 square meters End Stage Renal Disease: Less than 15 mL/min/1.73 square meters GFR/1.73 sq M.predicted among non-blacks MDRD (S/P/Bld) [Vol rate/Area] 51 ml/min/1.73sqm Invalid Interpretation Code [employer] Chemistry S Comment on above: Interpretive Data: GFR Population mean for , Non- Americans Ages 20-29 = 116 mL/min/1.73 sq.m. Ages 30-39 = 107 mL/min/1.73 sq.m. Ages 40-49 = 99 mL/min/1.73 sq.m. Ages 50-59 = 93 mL/min/1.73 sq.m. Ages 60-69 = 85 mL/min/1.73 sq.m. Ages 70+ = 75 mL/min/1.73 sq.m. Chronic Kidney Disease: Less than 60 mL/min/1.73 square meters End Stage Renal Disease: Less than 15 mL/min/1.73 square meters Glucose [Mass/Vol] 94 mg/dL Normal 82 - 115 mg/dL ADM SS Hematocrit (Bld) [Volume fraction] 37.0 % Normal 34.0 - 46.0 % Workflow SS Hemoglobin (Bld) [Mass/Vol] 12.7 G/dL Normal 12.0 - 16.0 G/dL AH Workflow SS Lymphocytes (Bld) [#/Vol] 1.4 103/mcL Normal 0.9 - 4.3 10^3/mcL AH Workflow SS Lymphocytes/100 WBC (Bld) 23.1 % Normal 20.0 - 40.0 % AH Workflow SS MCH (RBC) [Entitic mass] 31.7 pg Normal 27.0 - 33.0 pg AH Workflow SS MCHC 34.3 G/dL Normal 32.0 - 36.0 G/dL AH Workflow SS MCV (RBC) [Entitic vol] 92.4 fL Normal 80.0 - 99.0 fL Workflow SS Monocytes (Bld) [#/Vol] 0.4 103/mcL Normal 0.1 - 1.4 10^3/mcL AH Workflow SS Monocytes/100 WBC (Bld) 7.3 % Normal 2.0 - 13.0 % AH Workflow SS Neutrophils (Bld) [#/Vol] 4.1 103/mcL Normal 2.3 - 8.1 10^3/mcL AH Workflow SS Neutrophils/100 WBC (Bld) 66.6 % Normal 50.0 - 75.0 % AH Workflow SS Platelet mean volume (Bld) [Entitic vol] 8.2 fL Normal 6.6 - 10.5 fL AH Workflow SS Platelets (Bld) [#/Vol] 156 103/mcL Normal 150 - 450 10^3/mcL AH Workflow SS Potassium [Moles/Vol] 3.8 mmol/L Normal 3.5 - 5.0 mEq/L AH ADM SS RBC (Bld) [#/Vol] 4.01 106/mcL Low 4.10 - 5.3 0 10^6/mcL AH Workflow SS Sodium [Moles/Vol] 139 mmol/L Normal 136 - 145 mEq/L AH ADM SS Urea nitrogen [Mass/Vol] 19.0 mg/dL Normal 8.0 - 22.0 mg/dL AH ADM SS Urea nitrogen/Creatinine [Mass ratio] 18.3 ratio Normal 10.0 - 22.0 ratio AH ADM SS WBC (Bld) [#/Vol] 6.1 103/mcL Normal 4.5 - 10.8 10^3/mcL AH Workflow SS Basophil percentageOrdered B y: Robert Sands on 08-26-2022 Creatinine [Mass/Vol] 1.3 mg/dL 0.55-1.02 [facility] - Chemistry and C hemistry - challengeOrdered By: Robert Sands on 08-26-2022 GFR/1.73 sq M.predicted among non-blacks MDRD (S/P/Bld) [Vol rate/Area] 43.0000 mL/min/{1.73_m2} >60 [facility] LABORATORYOrdered By: SYSTEM SYSTEM on 08-25-2022 25-hydroxyvitamin D3 [Mass/Vol] 41.9 ng/mL Invalid Interpretation Code AO ADM SS Albumin BCP dye [Mass/Vol] 4.0 G/dL Invalid Interpretation Code 3.4 - 4.8 G/dL AO ADM SS Albumin/Globulin [Mass ratio] 1.2 {ratio} Invalid Interpretation Code 1.1 - 2.5 ratio AO ADM SS ALP [Catalytic activity/Vol] 125 U/L Invalid Interpretation Code 40 - 135 U/L AO ADM SS ALT With P-5'-P [Catalytic activity/Vol] 34 U/L Invalid Interpretation Code 14 - 59 U/L AO ADM SS AST With P-5'-P [Catalytic activity/Vol] 28 U/L Invalid Interpretation Code 10 - 40 U/L AO ADM SS Bilirubin [Mass/Vol] 1.1 mg/dL Invalid Interpretation Code 0.2 - 1.0 mg/dL AO ADM SS Calcium [Mass/Vol] 9.2 mg/dL Invalid Interpretation Code 8.4 - 10.2 mg/dL AO ADM SS Chloride [Moles/Vol] 108 mmol/L Invalid Interpretation Code 98 - 107 mmol/L AO ADM SS CO2 [Moles/Vol] 25 mmol/L Invalid Interpretation Code 23 - 31 mmol/L AO ADM SS Creatinine [Mass/Vol] 1.39 mg/dL Invalid Interpretation Code 0.55 - 1.02 mg/dL AO ADM SS Electrolyte Balance 11.0 mEq/L Invalid Interpretation Code 4.0 - 15.0 mEq/L AO ADM SS GFR/1.73 sq M.predicted among blacks MDRD (S/P/Bld) [Vol rate/Area] 44 ml/min/1.73sqm Invalid Interpretation Code AO Chemistry S GFR/1.73 sq M.predicted among non-blacks MDRD (S/P/Bld) [Vol rate/Area] 36 ml/min/1.73sqm Invalid Interpretation Code AO Chemistry S Globulin 3.2 G/dL Invalid Interpretation Code AO ADM SS Glucose [Mass/Vol] 88 mg/dL Invalid Interpretation Code 83 - 110 mg/dL AO ADM SS Parathyrin.intact [Mass/Vol] 67.5 pg/mL Invalid Interpretation Code 18.5 - 88.0 pg/mL AH ADM SS Phosphate [Mass/Vol] 4.3 mg/dL Invalid Interpretation Code 2.3 - 4.1 mg/dL AO ADM SS Potassium [Moles/Vol] 4.5 mmol/L Invalid Interpretation Code 3.5 - 5.1 mmol/L AO ADM SS Protein [Mass/Vol] 7.2 G/dL Invalid Interpretation Code 6.4 - 8.2 G/dL AO ADM SS Sodium [Moles/Vol] 144 mmol/L Invalid Interpretation Code 136 - 145 mmol/L AO ADM SS TSH Qn 2.08 m[IU]/L Invalid Interpretation Code 0.36 - 3.74 mcIU/mL AO ADM SS Urea nitrogen [Mass/Vol] 28 mg/dL Invalid Interpretation Code 7 - 18 mg/dL AO ADM SS Urea nitrogen/Creatinine [Mass ratio] 20 ratio Invalid Interpretation Code 7 - 27 ratio AO ADM SS LABORATORYOrdered By: Ariela Self on 08-25-2022 Cholesterol [Mass/Vol] 140 mg/dL Invalid Interpretation Code 0 - 200 mg/dL AO ADM SS Cholesterol in HDL [Mass/Vol] 59 mg/dL Invalid Interpretation Code 40 - 60 mg/dL AO ADM SS Cholesterol in LDL [Mass/Vol] 67 mg/dL Invalid Interpretation Code 0 - 130 mg/dL AO ADM SS Triglyceride [Mass/Vol] 69 mg/dL Invalid Interpretation Code 0 - 150 mg/dL AO ADM SS LABORATORYOrdered By: SYSTEM SYSTEM on 03-16-2022 Bilirubin [Mass/Vol] 1.0 mg/dL Invalid Interpretation Code 0.2 - 1.0 mg/dL AO ADM SS TSH Qn 0.18 m[IU]/L Invalid Interpretation Code 0.36 - 3.74 mcIU/mL AO ADM SS LABORATORYOrdered By: Lina Steiner on 10-07-2021 Albumin BCP dye [Mass/Vol] 3.6 G/dL Invalid Interpretation Code 3.4 - 4.8 G/dL AO ADM SS Albumin/Globulin [Mass ratio] 1.1 {ratio} Invalid Interpretation Code 1.1 - 2.5 ratio AO ADM SS ALP [Catalytic activity/Vol] 128 U/L Invalid Interpretation Code 40 - 135 U/L AO ADM SS ALT With P-5'-P [Catalytic activity/Vol] 30 U/L Invalid Interpretation Code 14 - 59 U/L AO ADM SS AST With P-5'-P [Catalytic activity/Vol] 26 U/L Invalid Interpretation Code 10 - 40 U/L AO ADM SS Bilirubin [Mass/Vol] 1.2 mg/dL Invalid Interpretation Code 0.2 - 1.0 mg/dL AO ADM SS Calcium [Mass/Vol] 9.0 mg/dL Invalid Interpretation Code 8.4 - 10.2 mg/dL AO ADM SS Chloride [Moles/Vol] 105 mmol/L Invalid Interpretation Code 98 - 107 mmol/L AO ADM SS Cholesterol [Mass/Vol] 124 mg/dL Invalid Interpretation Code 0 - 200 mg/dL AO ADM SS Cholesterol in HDL [Mass/Vol] 51 mg/dL Invalid Interpretation Code 40 - 60 mg/dL AO ADM SS Cholesterol in LDL [Mass/Vol] 60 mg/dL Invalid Interpretation Code 0 - 130 mg/dL AO ADM SS CO2 [Moles/Vol] 26 mmol/L Invalid Interpretation Code 23 - 31 mmol/L AO ADM SS Creatinine [Mass/Vol] 1.13 mg/dL Invalid Interpretation Code 0.55 - 1.02 mg/dL AO ADM SS Electrolyte Balance 11.0 mEq/L Invalid Interpretation Code 4.0 - 15.0 mEq/L AO ADM SS Globulin 3.4 G/dL Invalid Interpretation Code AO ADM SS Glucose [Mass/Vol] 98 mg/dL Invalid Interpretation Code 83 - 110 mg/dL AO ADM SS Magnesium [Mass/Vol] 2.2 mg/dL Invalid Interpretation Code 1.8 - 2.4 mg/dL AO ADM SS Phosphate [Mass/Vol] 3.9 mg/dL Invalid Interpretation Code 2.3 - 4.1 mg/dL AO ADM SS Potassium [Moles/Vol] 4.7 mmol/L Invalid Interpretation Code 3.5 - 5.1 mmol/L AO ADM SS Protein [Mass/Vol] 7.0 G/dL Invalid Interpretation Code 6.4 - 8.2 G/dL AO ADM SS Sodium [Moles/Vol] 142 mmol/L Invalid Interpretation Code 136 - 145 mmol/L AO ADM SS Triglyceride [Mass/Vol] 65 mg/dL Invalid Interpretation Code 0 - 150 mg/dL AO ADM SS TSH Qn 0.19 m[IU]/L Invalid Interpretation Code 0.36 - 3.74 mcIU/mL AO ADM SS Urea nitrogen [Mass/Vol] 20 mg/dL Invalid Interpretation Code 7 - 18 mg/dL AO ADM SS Urea nitrogen/Creatinine [Mass ratio] 18 ratio Invalid Interpretation Code 7 - 27 ratio AO ADM SS LABORATORYOrdered By: Angelina Wilcox on 10-07-2021 Basophil, Absolute 0.0 103/mcL Invalid Interpretation Code 0.0 - 0.2 10^3/mcL AO Workflow SS Basophils/100 WBC (Bld) 0.4 % Invalid Interpretation Code 0.0 - 2.5 % AO Workflow SS Eosinophil, Absolute 0.1 103/mcL Invalid Interpretation Code 0.0 - 0.4 10^3/mcL AO Workflow SS Eosinophils/100 WBC (Bld) 1.4 % Invalid Interpretation Code 0.0 - 7.0 % AO Workflow SS Erythrocyte distribution width (RBC) [Ratio] 13.9 % Invalid Interpretation Code 11.5 - 14.5 % AO Workflow SS Hematocrit (Bld) [Volume fraction] 37.2 % Invalid Interpretation Code 37.0 - 47.0 % AO Workflow SS Hemoglobin (Bld) [Mass/Vol] 12.7 G/dL Invalid Interpretation Code 12.0 - 16.0 G/dL AO Workflow SS Lymphocyte, Absolute 1.4 103/mcL Invalid Interpretation Code 0.8 - 3.9 10^3/mcL AO Workflow SS Lymphocytes/100 WBC (Bld) 21.7 % Invalid Interpretation Code 10.0 - 50.0 % AO Workflow SS MCH (RBC) [Entitic mass] 31.0 pg Invalid Interpretation Code 27.0 - 31.2 pg AO Workflow SS MCHC 34.2 G/dL Invalid Interpretation Code 33.0 - 37.0 G/dL AO Workflow SS MCV (RBC) [Entitic vol] 90.5 fL Invalid Interpretation Code 80.0 - 94.0 fL AO Workflow SS Monocyte, Absolute 0.4 103/mcL Invalid Interpretation Code 0.2 - 1.0 10^3/mcL AO Workflow SS Monocytes/100 WBC (Bld) 6.3 % Invalid Interpretation Code 1.7 - 13.0 % AO Workflow SS Neutrophil, Absolute 4.6 103/mcL Invalid Interpretation Code 2.9 - 6.2 10^3/mcL AO Workflow SS Neutrophils/100 WBC (Bld) 70.2 % Invalid Interpretation Code 37.0 - 80.0 % AO Workflow SS Platelet Estimate Normal (10/07/21 12:49 PM) Invalid Interpretation Code AO Hematology S Platelet mean volume (Bld) [Entitic vol] 8.4 fL Invalid Interpretation Code 7.4 - 10.4 fL AO Workflow SS Platelets (Bld) [#/Vol] 169 103/mcL Invalid Interpretation Code 130 - 400 10^3/mcL AO Workflow SS RBC (Bld) [#/Vol] 4.11 106/mcL Invalid Interpretation Code 4.20 - 5.40 10^6/mcL AO Workflow SS WBC 6.6 103/mcL Invalid Interpretation Code 4.6 - 10.8 10^3/mcL AO Workflow SS LABORATORYOrdered By: SYSTEM SYSTEM on 10-07-2021 GFR 56 ml/min/1.73sqm Invalid Interpretation Code AO Chemistry S GFR Non- 46 ml/min/1.73sqm Invalid Interpretation Code AO Chemistry S Monocyte distribution width Auto (Bld) [Entitic vol] Not Performed 1 *NA* (10/07/21 12:49 PM) Invalid Interpretation Code 0.00 - 20.00 AO Hematology S Comment on above: Result Comment: MDW testing performed only on adult ER patients between the ages of 18-89 years. Parathyrin.intact [Mass/Vol] 48.2 pg/mL Invalid Interpretation Code 18.5 - 88.0 pg/mL AH ADM SS LABORATORYOrdered By: Gaston Crespo on 01-22-2021 ADMITTED TO INTENSIVE CARE UNIT FOR CONDITION OF INTEREST:FIND:PT:^PA TIENT:ORD: No (01/22/21 1:00 PM) Invalid Interpretation Code AO Auto Urine SS EMPLOYED IN A HEALTHCARE SETTING:FIND:PT:^PAT IENT:ORD: Unknown (01/22/21 1:00 PM) Invalid Interpretation Code AO Auto Urine SS FIRST TEST FOR CONDITION OF INTEREST:FIND:PT:^PA TIENT:ORD: Unknown (01/22/21 1:00 PM) Invalid Interpretation Code AO Auto Urine SS HAS SYMPTOMS RELATED TO CONDITION OF INTEREST:FIND:PT:^PA TIENT:ORD: Yes (01/22/21 1:00 PM) Invalid Interpretation Code AO Auto Urine SS Illness or injury onset date and time [id number] Invalid Interpretation Code AO Auto Urine SS Patient was hospitalized because of this condition No (01/22/21 1:00 PM) Invalid Interpretation Code AO Auto Urine SS status Not (01/22/21 1:00 PM) Invalid Interpretation Code AO Auto Urine SS RESIDES IN A CONGREGATE CARE SETTING:FIND:PT:^PAT IENT:ORD: Unknown (01/22/21 1:00 PM) Invalid Interpretation Code AO Auto Urine SS SARS-CoV-2 (COVID-19) RNA HUSSAIN+probe Ql (Resp) Negative (01/22/21 1:00 PM) Invalid Interpretation Code Negative AO Auto Urine SS SARS-CoV-2 (COVID-19) RNA HUSSAIN+probe Ql (Unsp spec) Negative results do not preclude SARS-CoV-2 infection and should not be used as the sole basis for patient management decisions. Negative results must be combined with clinical observations, patient history, and epidemiological information.There is a risk of false negative values resulting from improperly collected, transported, or handled specimens.There is a risk of false negative values due to the presence of sequence variants in the pathogen targets of the assay, procedural errors, amplification inhibitors in specimens, or inadequate numbers of organisms for amplification.MELIZA SARS-CoV-2 Assay is a Real-Time reverse-transcriptase polymerase chain reaction (RT-PCR) based qualitative in vitro diagnostic test intended for the qualitative detection of nucleic acid from the SARS-CoV-2 in nasopharyngeal swab specimens collected from individuals suspected of COVID-19 by their healthcare provider. Testing is limited to laboratories certified under the Clinical Laboratory Improvement Amendments of 1988 (CLIA), 42 U.S.C. 263a, to perform moderate and high complexity tests. Invalid Interpretation Code AO Auto Urine SS CBC with DIFFERENTIALon 11-0 Hematocrit (Bld) [Volume fraction] 36.9 % Low 37.0-47.0 [facility] Comment on above: Performed By: #### B MP, FT4, TIBCFE, TSH, B12, TOI #### [facility] [address] [place] [address] Hemoglobin (Bld) [Mass/Vol] 11.8 g/dL Low 12.0-16.0 [facility] Comment on above: Performed By: #### B MP, FT4, TIBCFE, TSH, B12, TOI #### [facility] [address] [place] [address] MCH (RBC) [Entitic mass] 32.0 g/dl Low 33.0-37.0 [facility] Comment on above: Performed By: #### B MP, FT4, TIBCFE, TSH, B12, TOI #### [facility] [address] [place] [address] MCV (RBC) [Entitic vol] 98.7 fL Normal 81.0-99.0 [facility] Comment on above: Performed By: #### B MP, FT4, TIBCFE, TSH, B12, TOI #### [facility] [address] [place] [address] MEAN CORPUSCULAR HGB 31.6 pg High 27.0-31.0 [facility] Comment on above: Performed By: #### B MP, FT4, TIBCFE, TSH, B12, TOI #### [facility] [address] [place] [address] NUCLEATED RED BLOOD CELL 0.0 10*3/uL Normal 0.0-0.0 [facility] Comment on above: Performed By: #### B MP, FT4, TIBCFE, TSH, B12, TOI #### [facility] [address] [place] [address] NUCLEATED RED BLOOD CELL 0.1 % High 0.0-0.0 [facility] Comment on above: Performed By: #### B MP, FT4, TIBCFE, TSH, B12, TOI #### [facility] [address] [place] [id number] PLATELET COUNT AUTOMATED 229 10*3/uL Normal 130-400 [facility] Comment on above: Performed By: #### B MP, FT4, TIBCFE, TSH, B12, TOI #### [facility] [address] [place] [address] Platelet mean volume (Bld) [Entitic vol] 9.5 fL Low 9.6-12.3 [facility] Comment on above: Performed By: #### B MP, FT4, TIBCFE, TSH, B12, TOI #### [facility] [address] [place] [address] RBC (Bld) [#/Vol] 3.74 10*6/uL Low 4.10-5.10 [facility] Comment on above: Performed By: #### B MP, FT4, TIBCFE, TSH, B12, TOI #### [facility] [address] [place] [address] RED CELL DISTRI WIDTH 13.9 % Normal 0-14.5 [facility] Comment on above: Performed By: #### B MP, FT4, TIBCFE, TSH, B12, TOI #### [facility] [address] [place] [address] WBC (Bld) [#/Vol] 15.2 10*3/uL High 4.8-10.8 [facility] Comment on above: Performed By: #### B MP, FT4, TIBCFE, TSH, B12, TOI #### [facility] [address] [place] [address] MANUAL DIFFERENTIALon 2018 ATYPICAL LYMPHS 2 % High 0-0 [facility] Comment on above: Performed By: #### B MP, FT4, TIBCFE, TSH, B12, TOI #### [facility] [address] [place] [phone] Basophils (Bld) [#/Vol] 0.0 10*3/uL Normal 0-0.1 [facility] Comment on above: Performed By: #### B MP, FT4, TIBCFE, TSH, B12, TOI #### [facility] [address] [place] [address] EOSINOPHIL # 0.0 10*3/uL Normal 0-0.4 [facility] Comment on above: Performed By: #### B MP, FT4, TIBCFE, TSH, B12, TOI #### [facility] [address] [place] [address] IMMATURE GRANULOCYTES # 0.8 10*3/uL High 0-0.1 [facility] Comment on above: Performed By: #### B MP, FT4, TIBCFE, TSH, B12, TOI #### [facility] [address] [place] [address] LYMPHOCYTES 20 % Low 27-41 [facility] Comment on above: Performed By: #### B MP, FT4, TIBCFE, TSH, B12, TOI #### [facility] [address] [place] [address] Lymphocytes (Bld) [#/Vol] 3.3 10*3/uL Normal 1.3-4.4 [facility] Comment on above: Performed By: #### B MP, FT4, TIBCFE, TSH, B12, TOI #### [facility] [address] [place] [address] METAMYELOCYTES 2 % High 0-0 [facility] Comment on above: Performed By: #### B MP, FT4, TIBCFE, TSH, B12, TOI #### [facility] [address] [place] [address] MONOCYTES 7 % Normal 3-9 [facility] Comment on above: Performed By: #### B MP, FT4, TIBCFE, TSH, B12, TOI #### [facility] [address] [place] [phone] Monocytes (Bld) [#/Vol] 1.1 10*3/uL High 0.1-1.0 [facility] Comment on above: Performed By: #### B MP, FT4, TIBCFE, TSH, B12, TOI #### [facility] [address] [place] [address] MYELOCYTES 3 % High 0-0 [facility] Comment on above: Performed By: #### B MP, FT4, TIBCFE, TSH, B12, TOI #### [facility] [address] [place] [address] NEUTROPHILS 66 % Normal 47-73 [facility] Comment on above: Performed By: #### B MP, FT4, TIBCFE, TSH, B12, TOI #### [facility] [address] [place] [address] Neutrophils (Bld) [#/Vol] 10.0 10*3/uL High 2.3-7.9 [facility] Comment on above: Performed By: #### B MP, FT4, TIBCFE, TSH, B12, TOI #### [facility] [address] [place] [address] PLATELET SUFFICIENCY NORMAL Normal NORMAL [facility] Comment on above: Performed By: #### B MP, FT4, TIBCFE, TSH, B12, TOI #### [facility] [address] [place] [address] RBC morphology finding Nom (Bld) NORMAL Normal NORMAL [facility] Comment on above: Performed By: #### B MP, FT4, TIBCFE, TSH, B12, TOI #### [facility] [address] [place] [address] BASIC METABOLIC PANELon 11-0 Calcium [Mass/Vol] 9.3 mg/dL Normal 8.5-10.5 [facility] Comment on above: Performed By: #### B MP, FT4, TIBCFE, TSH, B12, TOI #### [facility] [address] [place] [address] Chloride [Moles/Vol] 103 mmol/L Normal 98-107 [facility] Comment on above: Performed By: #### B MP, FT4, TIBCFE, TSH, B12, TOI #### [facility] [address] [place] [address] CO2 [Moles/Vol] 35 mmol/L High 21-32 [facility] Comment on above: Performed By: #### B MP, FT4, TIBCFE, TSH, B12, TOI #### [facility] [address] [place] [address] Creatinine [Mass/Vol] 0.85 mg/dL Normal 0.55-1.02 [facility] Comment on above: Performed By: #### B MP, FT4, TIBCFE, TSH, B12, TOI #### [facility] [address] [place] [address] EST GLOM FILT > 60 Normal [facility] Comment on above: Result Comment: Result Units: mL/min/1.73 m2 Note: Persistent reduction for 3 months or more of an eGFR of <60 ml/min/1.73 m2 defines Chronic Kidney Disease (CKD). Patients with eGFR values greater than or equal to 60 ml/min/1.73 m2 may also have CKD if evidence of persistent proteinuria is present. STAGES OF CKD eGFR Stage 1 Kidney damage with normal kidney function >=90 Stage 2 Kidney damage with mild loss of kidney function 89-60 Stage 3a Mild to moderate loss of kidney function 59-44 Stage 3b Moderate to severe loss of kidney function 43-30 Stage 4 Severe loss of kidney function 29-15 Stage 5 Kidney failure < 15 . Performed By: #### B MP, FT4, TIBCFE, TSH, B12, TOI #### [facility] [address] [place] [address] ESTIMATED GLOM FILT RATE > 60 Normal [facility] Comment on above: Performed By: #### B MP, FT4, TIBCFE, TSH, B12, TOI #### [facility] [address] [place] [address] Glucose [Mass/Vol] 116 mg/dL High 65-99 [facility] Comment on above: Performed By: #### B MP, FT4, TIBCFE, TSH, B12, TOI #### [facility] [address] [place] [address] Potassium [Moles/Vol] 3.7 mmol/L Normal 3.5-5.1 [facility] Comment on above: Performed By: #### B MP, FT4, TIBCFE, TSH, B12, TOI #### [facility] [address] [place] [address] Sodium [Moles/Vol] 142 mmol/L Normal 136-145 [facility] Comment on above: Performed By: #### B MP, FT4, TIBCFE, TSH, B12, TOI #### [facility] [address] [place] [address] Urea nitrogen [Mass/Vol] 23 mg/dL Normal 7-24 [facility] Comment on above: Performed By: #### B MP, FT4, TIBCFE, TSH, B12, TOI #### [facility] [address] [place] [address] CBC with DIFFERENTIALon Hematocrit (Bld) [Volume fraction] 43.5 % Normal 37.0-47.0 [facility] Comment on above: Performed By: #### B MP, FT4, TIBCFE, TSH, B12, TOI #### [facility] [address] [place] [address] Hemoglobin (Bld) [Mass/Vol] 13.7 g/dL Normal 12.0-16.0 [facility] Comment on above: Performed By: #### B MP, FT4, TIBCFE, TSH, B12, TIO #### [facility] [address] [place] [address] MCH (RBC) [Entitic mass] 31.5 g/dl Low 33.0-37.0 [facility] Comment on above: Performed By: #### B MP, FT4, TIBCFE, TSH, B12, TOI #### [facility] [address] [place] [address] MCV (RBC) [Entitic vol] 100.0 fL High 81.0-99.0 [facility] Comment on above: Performed By: #### B MP, FT4, TIBCFE, TSH, B12, TOI #### [facility] [address] [place] [address] MEAN CORPUSCULAR HGB 31.5 pg High 27.0-31.0 [facility] Comment on above: Performed By: #### B MP, FT4, TIBCFE, TSH, B12, TOI #### [facility] [address] [place] [address] NUCLEATED RED BLOOD CELL 0.0 % Normal 0.0-0.0 [facility] Comment on above: Performed By: #### B MP, FT4, TIBCFE, TSH, B12, TOI #### [facility] [address] [place] [address] 238[address] NUCLEATED RED BLOOD CELL 0.0 10*3/uL Normal 0.0-0.0 [facility] Comment on above: Performed By: #### B MP, FT4, TIBCFE, TSH, B12, TOI #### [facility] [address] [place] [address]604 PLATELET COUNT AUTOMATED 301 10*3/uL Normal 130-400 [facility] Comment on above: Performed By: #### B MP, FT4, TIBCFE, TSH, B12, TOI #### [facility] [address] [place] [address] Platelet mean volume (Bld) [Entitic vol] 9.8 fL Normal 9.6-12.3 [facility] Comment on above: Performed By: #### B MP, FT4, TIBCFE, TSH, B12, TOI #### [facility] [address] [place] [address] RBC (Bld) [#/Vol] 4.35 10*6/uL Normal 4.10-5.10 [facility] Comment on above: Performed By: #### B MP, FT4, TIBCFE, TSH, B12, TOI #### [facility] [address] [place] [address] 19447 RED CELL DISTRI WIDTH 13.8 % Normal 0-14.5 [facility] Comment on above: Performed By: #### B MP, FT4, TIBCFE, TSH, B12, TOI #### [facility] [address] [place] [address] WBC (Bld) [#/Vol] 15.3 10*3/uL High 4.8-10.8 [facility] Comment on above: Performed By: #### B MP, FT4, TIBCFE, TSH, B12, TOI #### [facility] [address] [place] [address] MANUAL DIFFERENTIALon 2018 Basophils (Bld) [#/Vol] 0.0 10*3/uL Normal 0-0.1 [facility] Comment on above: Performed By: #### B MP, FT4, TIBCFE, TSH, B12, TOI #### [facility] [address] [place] [address]60 EOSINOPHIL # 0.0 10*3/uL Normal 0-0.4 [facility] Comment on above: Performed By: #### B MP, FT4, TIBCFE, TSH, B12, TOI #### [facility] [address] [place] [address] IMMATURE GRANULOCYTES # 0.9 10*3/uL High 0-0.1 [facility] [facility] Comment on above: Performed By: #### B MP, FT4, TIBCFE, TSH, B12, TOI #### [facility] [address] [place] [address] [id number] LYMPHOCYTES 9 % Low 27-41 [facility] Comment on above: Performed By: #### B MP, FT4, TIBCFE, TSH, B12, TOI #### [facility] [address] [place] [address] [id number] Lymphocytes (Bld) [#/Vol] 1.4 10*3/uL Normal 1.3-4.4 [facility] Comment on above: Performed By: #### B MP, FT4, TIBCFE, TSH, B12, TOI #### [facility] [address] [place] [address] [phone] MACROCYTOSIS SLIGHT Normal [facility] [place] Comment on above: Performed By: #### B MP, FT4, TIBCFE, TSH, B12, TOI #### [facility] [address] [place] [address] METAMYELOCYTES 3 % High 0-0 [facility] [place] Comment on above: Performed By: #### B MP, FT4, TIBCFE, TSH, B12, TOI #### [facility] [address] [place] [address] MONOCYTES 4 % Normal 3-9 [facility] Comment on above: Performed By: #### B MP, FT4, TIBCFE, TSH, B12, TOI #### [facility] [address] [place] [address] 26805 Monocytes (Bld) [#/Vol] 0.6 10*3/uL Normal 0.1-1.0 [facility] Comment on above: Performed By: #### B MP, FT4, TIBCFE, TSH, B12, TOI #### [facility] [address] [place] [address] 15303 MYELOCYTES 3 % High 0-0 [facility] Comment on above: Performed By: #### B MP, FT4, TIBCFE, TSH, B12, TOI #### [facility] [address] [place] [address] 28351 NEUTROPHILS 81 % High 47-73 [facility] Comment on above: Performed By: #### B MP, FT4, TIBCFE, TSH, B12, TOI #### [facility] [address] [place] [address] 58546 Neutrophils (Bld) [#/Vol] 12.4 10*3/uL High 2.3-7.9 [facility] Comment on above: Performed By: #### B MP, FT4, TIBCFE, TSH, B12, TOI #### [facility] [address] [place] [address] 56605 PLATELET SUFFICIENCY NORMAL Normal NORMAL [facility] Comment on above: Performed By: #### B MP, FT4, TIBCFE, TSH, B12, TOI #### [facility] [address] [place] [address] TARGET CELLS FEW Normal [facility] [place] Comment on above: Performed By: #### B MP, FT4, TIBCFE, TSH, B12, TOI #### [facility] [address] [place] [address] PROGRESS NOTEon 12-26-2018 Genetic Technologist Report [place], [place] PROGRESS NOTE NAME: ROSA LANDERS UNIT #: [id number] ROOM: [facility] DOCTOR: KIKI GUERRERO MD,CAM BIRTHDATE: [birth year] DOS: 12/26/2018 SUBJECTIVE: The patient noted comfortable at this time, resting on the bed with gradual reduction of the respiratory symptoms noted including shortness of breath and cough. Denies symptoms of fever or chills. Denies symptoms of hemoptysis. Oxygen requirement has been gradually decreased as well in the last 24 hours. PHYSICAL EXAMINATION: GENERAL: The patient comfortably sitting on the bed this morning of assessment. VITAL SIGNS: Normal temperature, respiratory rate 18, heart rate 82, blood pressure 72/90. Pulse oxygen saturation on 3 liters nasal cannula was 100% saturation. HEENT: Examination shows head was atraumatic. Eyes nonicterus. NECK: Supple. CARDIOVASCULAR: S1, S2 is audible. LUNGS: Noted without any crackles or rhonchi. Mild expiratory wheezing noted in the lungs bilaterally with improvement in the air entry and wheezing was noted. The patient has compared with the previous couple of days. Ultrasound of the bilateral lower extremity was also completed yesterday that does not show any evidence of deep venous thrombosis. IMPRESSION: The patient with acute severe hypoxic respiratory failure with acute exacerbation of chronic obstructive pulmonary disease and acute pulmonary embolism, all resolving gradually and progressively. PLAN OF MANAGEMENT: Continuation of the patient's current therapy, plan of management, bronchodilators and oxygen supplementation. Discharge planning could be started. Other plan of care at this time as well will be continued as ordered. CAM SWANSON MD CM:PNTRANS [id number] CAM GUERRERO MD 12/26/18 1348 interface Normal [facility] BASIC METABOLIC PANELon 11-0 Calcium [Mass/Vol] 9.1 mg/dL Normal 8.5-10.5 [facility] Comment on above: Performed By: #### B MP, FT4, TIBCFE, TSH, B12, TOI #### [facility] [address] [place] [address] Chloride [Moles/Vol] 108 mmol/L High 98-107 [facility] Comment on above: Performed By: #### B MP, FT4, TIBCFE, TSH, B12, TOI #### [facility] [address] [place] [address] CO2 [Moles/Vol] 29 mmol/L Normal 21-32 [facility] Comment on above: Performed By: #### B MP, FT4, TIBCFE, TSH, B12, TOI #### [facility] [address] [place] [address] Creatinine [Mass/Vol] 0.80 mg/dL Normal 0.55-1.02 [facility] Comment on above: Performed By: #### B MP, FT4, TIBCFE, TSH, B12, TOI #### [facility] [address] [place] [address] EST GLOM FILT > 60 Normal [facility] Comment on above: Result Comment: Result Units: mL/min/1.73 m2 Note: Persistent reduction for 3 months or more of an eGFR of <60 ml/min/1.73 m2 defines Chronic Kidney Disease (CKD). Patients with eGFR values greater than or equal to 60 ml/min/1.73 m2 may also have CKD if evidence of persistent proteinuria is present. STAGES OF CKD eGFR Stage 1 Kidney damage with normal kidney function >=90 Stage 2 Kidney damage with mild loss of kidney function 89-60 Stage 3a Mild to moderate loss of kidney function 59-44 Stage 3b Moderate to severe loss of kidney function 43-30 Stage 4 Severe loss of kidney function 29-15 Stage 5 Kidney failure < 15 . Performed By: #### B MP, FT4, TIBCFE, TSH, B12, TOI #### [facility] [address] [place] [address] ESTIMATED GLOM FILT RATE > 60 Normal [facility] Comment on above: Performed By: #### B MP, FT4, TIBCFE, TSH, B12, TOI #### [facility] [address] [place] [address] Glucose [Mass/Vol] 122 mg/dL High 65-99 [facility] Comment on above: Performed By: #### B MP, FT4, TIBCFE, TSH, B12, TOI #### [facility] [address] [place] [address] Potassium [Moles/Vol] 3.8 mmol/L Normal 3.5-5.1 [facility] Comment on above: Performed By: #### B MP, FT4, TIBCFE, TSH, B12, TOI #### [facility] [address] [place] [address] Sodium [Moles/Vol] 143 mmol/L Normal 136-145 [facility] Comment on above: Performed By: #### B MP, FT4, TIBCFE, TSH, B12, TOI #### [facility] [address] [place] [address] Urea nitrogen [Mass/Vol] 22 mg/dL Normal 7-24 [facility] Comment on above: Performed By: #### B MP, FT4, TIBCFE, TSH, B12, TOI #### [facility] [address] [place] [address] 70457 CBC with DIFFERENTIALon 11-0 Hematocrit (Bld) [Volume fraction] 40.0 % Normal 37.0-47.0 [facility] Comment on above: Performed By: #### B MP, FT4, TIBCFE, TSH, B12, TOI #### [facility] [address] [place] [address] 99560 Hemoglobin (Bld) [Mass/Vol] 12.7 g/dL Normal 12.0-16.0 [facility] Comment on above: Performed By: #### B MP, FT4, TIBCFE, TSH, B12, TOI #### [facility] [address] [place] [address] 61161 MCH (RBC) [Entitic mass] 31.8 g/dl Low 33.0-37.0 [facility] Comment on above: Performed By: #### B MP, FT4, TIBCFE, TSH, B12, TOI #### [facility] [address] [place] [address] 39513 MCV (RBC) [Entitic vol] 99.5 fL High 81.0-99.0 [facility] Comment on above: Performed By: #### B MP, FT4, TIBCFE, TSH, B12, TOI #### [facility] [address] [place] [address] 90828 MEAN CORPUSCULAR HGB 31.6 pg High 27.0-31.0 [facility] Comment on above: Performed By: #### B MP, FT4, TIBCFE, TSH, B12, TOI #### [facility] [address] [place] [address] 41443 NUCLEATED RED BLOOD CELL 0.0 10*3/uL Normal 0.0-0.0 [facility] Comment on above: Performed By: #### B MP, FT4, TIBCFE, TSH, B12, TOI #### [facility] [address] [place] [address] 87593 NUCLEATED RED BLOOD CELL 0.0 % Normal 0.0-0.0 [facility] Comment on above: Performed By: #### B MP, FT4, TIBCFE, TSH, B12, TOI #### [facility] [address] [place] [address] 88323 PLATELET COUNT AUTOMATED 242 10*3/uL Normal 130-400 [facility] Comment on above: Performed By: #### B MP, FT4, TIBCFE, TSH, B12, TOI #### [facility] [address] [place] [address] Platelet mean volume (Bld) [Entitic vol] 9.7 fL Normal 9.6-12.3 [facility] [place] Comment on above: Performed By: #### B MP, FT4, TIBCFE, TSH, B12, TOI #### [facility] [address] [place] [address] 92255 RBC (Bld) [#/Vol] 4.02 10*6/uL Low 4.10-5.10 [facility] Comment on above: Performed By: #### B MP, FT4, TIBCFE, TSH, B12, TOI #### [facility] [address] [place] [address] 30433 RED CELL DISTRI WIDTH 13.8 % Normal 0-14.5 [facility] Comment on above: Performed By: #### B MP, FT4, TIBCFE, TSH, B12, TOI #### [facility] [address] [place] [address] 61314 WBC (Bld) [#/Vol] 12.6 10*3/uL High 4.8-10.8 [facility] Comment on above: Performed By: #### B MP, FT4, TIBCFE, TSH, B12, TOI #### [facility] [address] [place] [address] 24157 MANUAL DIFFERENTIALon 2018 Basophils (Bld) [#/Vol] 0.0 10*3/uL Normal 0-0.1 [facility] Comment on above: Performed By: #### B MP, FT4, TIBCFE, TSH, B12, TOI #### [facility] [address] [place] [address] 98150 EOSINOPHIL # 0.0 10*3/uL Normal 0-0.4 [facility] Comment on above: Performed By: #### B MP, FT4, TIBCFE, TSH, B12, TOI #### [facility] [address] [place] [address] 37718 IMMATURE GRANULOCYTES # 0.0 10*3/uL Normal 0-0.1 [facility] Comment on above: Performed By: #### B MP, FT4, TIBCFE, TSH, B12, TOI #### [facility] [address] [place] [address] LYMPHOCYTES 9 % Low 27-41 [facility] Comment on above: Performed By: #### B MP, FT4, TIBCFE, TSH, B12, TOI #### [facility] [address] [place] [address] 16735 Lymphocytes (Bld) [#/Vol] 1.1 10*3/uL Low 1.3-4.4 [facility] Comment on above: Performed By: #### B MP, FT4, TIBCFE, TSH, B12, TOI #### [facility] [address] [place] [address] 51419 MONOCYTES 1 % Low 3-9 [facility] Comment on above: Performed By: #### B MP, FT4, TIBCFE, TSH, B12, TOI #### [facility] [address] [place] [address] 96649 Monocytes (Bld) [#/Vol] 0.1 10*3/uL Normal 0.1-1.0 [facility] Comment on above: Performed By: #### B MP, FT4, TIBCFE, TSH, B12, TOI #### [facility] [address] [place] [address] 34883 NEUTROPHILS 90 % High 47-73 [facility] Comment on above: Performed By: #### B MP, FT4, TIBCFE, TSH, B12, TOI #### [facility] [address] [place] [address] 81974 Neutrophils (Bld) [#/Vol] 11.3 10*3/uL High 2.3-7.9 [facility] Comment on above: Performed By: #### B MP, FT4, TIBCFE, TSH, B12, TOI #### [facility] [address] [place] [address] 04981 PLATELET SUFFICIENCY NORMAL Normal NORMAL [facility] Comment on above: Performed By: #### B MP, FT4, TIBCFE, TSH, B12, TOI #### [facility] [address] [place] [address] RBC morphology finding Nom (Bld) NORMAL Normal NORMAL [facility] Comment on above: Performed By: #### B MP, FT4, TIBCFE, TSH, B12, TOI #### [facility] [address] [place] [address] PROGRESS NOTEon 12-25-2018 Genetic Technologist Report [place], [place] PROGRESS NOTE NAME: ROSA LANDERS UNIT #: [id number] ROOM: [facility] DOCTOR: CAM PADILLA MD BIRTHDATE: [birth year] DOS: 12/25/2018 PULMONARY PROGRESS NOTE SUBJECTIVE: The patient was noted about the same of yesterday. She was still reporting coughing noted moderate, nonproductive. There were no symptoms of chest pain or any acute hemoptysis stated by the patient. Denies symptoms of headache or diplopia. Denies symptoms of nausea, vomiting, diarrhea, abdominal pain, hematemesis, melena, or hematochezia. The patient heparin has been discontinued yesterday and was started on Eliquis by the primary care physician. She has not been noted with abnormal bleeding problem or others. Remaining systems were reviewed, noted all negative. OBJECTIVE: VITAL SIGNS: Normal temperature, respiratory rate 20, heart rate 70, blood pressure 170/52 this morning recorded, pulse oxygen saturation is at high flow nasal cannula 99% saturation. HEENT: Examination shows head was atraumatic. Eyes nonicterus. NECK: Supple. CARDIOVASCULAR: S1, S2 is audible. LUNGS: Noted without any crackles. Mild expiratory wheezing. ABDOMEN: Soft. EXTREMITIES: Without acute edema. MUSCULOSKELETAL: Without acute deformities. CENTRAL NERVOUS SYSTEM: Intact. No focal deficit. LABORATORY DATA: BMP that was done this morning noted normal BUN and creatinine, glucose 122. Electrolytes are normal. CBC: WBC count 12.6, hemoglobin 12.7, platelet count was normal. IMPRESSION: 1. The patient will be currently admitted to the hospital, treated with severe acute hypoxic respiratory failure with acute exacerbation of chronic obstructive pulmonary disease, suspected pulmonary embolism as well. 2. History of chronic nicotine abuse. 3. Moderate to severe nonresolving cough. PLAN OF MANAGEMENT: Continuation of bronchodilators, oxygen supplementation anticoagulation. Ultrasound of the lower extremity has been ordered as well, which was pending. Follow the results. Additional treatment changes recommendation will be made based on progression of the illness and available any new data. [place], [place] PROGRESS NOTE NAME: ROSA LANDERS UNIT #: [id number] ROOM: [facility] DOCTOR: CAM PADILLA MD BIRTHDATE: [birth year] CAM SWANSON MD CM:PNTRANS [phone] CAM GUERRERO MD 12/25/18 1345 interface Normal [facility] US VENOUS LOWER EXT BILATERA Kamaljit 12-25-2018 USVENLEB Name: ROSA LANDERS Phys: CAM PADILLA MD : 1940 Age: 78 Sex: F Acct: [id number] Loc: 502 1 Exam Date: 12/25/2018 Status: ADM IN Radiology No: [id number] Unit No: [id number] EXAM# TYPE/EXAM RESULT [id number] US/US VENOUS LOWER EXT BILATERA SEE REPORT INDICATION: Bilateral leg edema TECHNIQUE: Real-time grayscale, color, and spectral doppler ultrasound imaging of the bilateral lower extremity veins was performed. COMPARISON: None available. FINDINGS: The bilateral common femoral, superficial femoral, and popliteal veins demonstrated normal compressibility, normal phasic venous flow, and normal response to augmentation. There is no evidence for echogenic thrombi. The visualized deep calf veins are patent. IMPRESSION: No evidence for DVT within the bilateral lower extremities. Signed by Maico Solis MD REPORT SIGNED IN OTHER VENDOR SYSTEM 12/25/2018 Reported By: MAICO SOLIS M.D. CC: JERRY GIBSON MD Technologist: MAIRA MARTNIEZ Transcribed Date/Time: 12/25/2018 (1943) Jacket Changer: SRI Printed Date/Time: 12/25/2018 (734) PAGE 1 Signed Report Normal [facility] ACT PARTIAL THROMBO TIMEon 1 02-23-2018 ACT PARTIAL THROMBO TIME 40.2 SECONDS High 20.0-32.1 [facility] Comment on above: Result Comment: APTT THERAPEUTIC RANGE = 46.3 TO 76.1 SECONDS Performed By: #### B MP, FT4, TIBCFE, TSH, B12, TOI #### [facility] [address] [place] [address] 24164 ACT PARTIAL THROMBO TIME 25.1 SECONDS Normal 20.0-32.1 [facility] Comment on above: Result Comment: APTT THERAPEUTIC RANGE = 46.3 TO 76.1 SECONDS Performed By: #### B MP, FT4, TIBCFE, TSH, B12, TOI #### [facility] [address] [place] [address] 24237 BASIC METABOLIC PANELon 11-0 Calcium [Mass/Vol] 8.8 mg/dL Normal 8.5-10.5 [facility] Comment on above: Performed By: #### B MP, FT4, TIBCFE, TSH, B12, TOI #### [facility] [address] [place] [address] 67798 Chloride [Moles/Vol] 107 mmol/L Normal 98-107 [facility] Comment on above: Performed By: #### B MP, FT4, TIBCFE, TSH, B12, TOI #### [facility] [address] [place] [address] 43851 CO2 [Moles/Vol] 29 mmol/L Normal 21-32 [facility] Comment on above: Performed By: #### B MP, FT4, TIBCFE, TSH, B12, TOI #### [facility] [address] [place] [address] 59326 Creatinine [Mass/Vol] 0.85 mg/dL Normal 0.55-1.02 [facility] Comment on above: Performed By: #### B MP, FT4, TIBCFE, TSH, B12, TOI #### [facility] [address] [place] [address] EST GLOM FILT > 60 Normal [facility] Comment on above: Result Comment: Result Units: mL/min/1.73 m2 Note: Persistent reduction for 3 months or more of an eGFR of <60 ml/min/1.73 m2 defines Chronic Kidney Disease (CKD). Patients with eGFR values greater than or equal to 60 ml/min/1.73 m2 may also have CKD if evidence of persistent proteinuria is present. STAGES OF CKD eGFR Stage 1 Kidney damage with normal kidney function >=90 Stage 2 Kidney damage with mild loss of kidney function 89-60 Stage 3a Mild to moderate loss of kidney function 59-44 Stage 3b Moderate to severe loss of kidney function 43-30 Stage 4 Severe loss of kidney function 29-15 Stage 5 Kidney failure < 15 . Performed By: #### B MP, FT4, TIBCFE, TSH, B12, TOI #### [facility] [address] [place] [address] ESTIMATED GLOM FILT RATE > 60 Normal [facility] Comment on above: Performed By: #### B MP, FT4, TIBCFE, TSH, B12, TOI #### [facility] [address] [place] [address] Glucose [Mass/Vol] 114 mg/dL High 65-99 [facility] Comment on above: Performed By: #### B MP, FT4, TIBCFE, TSH, B12, TOI #### [facility] [address] [place] [address] Potassium [Moles/Vol] 3.8 mmol/L Normal 3.5-5.1 [facility] Comment on above: Performed By: #### B MP, FT4, TIBCFE, TSH, B12, TOI #### [facility] [address] [place] [address] Sodium [Moles/Vol] 142 mmol/L Normal 136-145 [facility] Comment on above: Performed By: #### B MP, FT4, TIBCFE, TSH, B12, TOI #### [facility] [address] [place] [address] Urea nitrogen [Mass/Vol] 19 mg/dL Normal 7-24 [facility] Comment on above: Performed By: #### B MP, FT4, TIBCFE, TSH, B12, TOI #### [facility] [address] [place] [address] CBC with DIFFERENTIALon 11-0 Hematocrit (Bld) [Volume fraction] 37.4 % Normal 37.0-47.0 [facility] Comment on above: Performed By: #### B MP, FT4, TIBCFE, TSH, B12, TOI #### [facility] [address] [place] [address] Hemoglobin (Bld) [Mass/Vol] 12.0 g/dL Normal 12.0-16.0 [facility] Comment on above: Performed By: #### B MP, FT4, TIBCFE, TSH, B12, TOI #### [facility] [address] [place] [address] MCH (RBC) [Entitic mass] 32.1 g/dl Low 33.0-37.0 [facility] Comment on above: Performed By: #### B MP, FT4, TIBCFE, TSH, B12, TOI #### [facility] [address] [place] [address] MCV (RBC) [Entitic vol] 100.0 fL High 81.0-99.0 [facility] Comment on above: Performed By: #### B MP, FT4, TIBCFE, TSH, B12, TOI #### [facility] [address] [place] [address] MEAN CORPUSCULAR HGB 32.1 pg High 27.0-31.0 [facility] Comment on above: Performed By: #### B MP, FT4, TIBCFE, TSH, B12, TOI #### [facility] [address] [place] [address] NUCLEATED RED BLOOD CELL 0.0 % Normal 0.0-0.0 [facility] Comment on above: Performed By: #### B MP, FT4, TIBCFE, TSH, B12, TOI #### [facility] [address] [place] [address] 76822 NUCLEATED RED BLOOD CELL 0.0 10*3/uL Normal 0.0-0.0 [facility] Comment on above: Performed By: #### B MP, FT4, TIBCFE, TSH, B12, TOI #### [facility] [address] [place] [address] 90292 PLATELET COUNT AUTOMATED 230 10*3/uL Normal 130-400 [facility] Comment on above: Performed By: #### B MP, FT4, TIBCFE, TSH, B12, TOI #### [facility] [address] [place] [address] 25386 Platelet mean volume (Bld) [Entitic vol] 9.9 fL Normal 9.6-12.3 [facility] [place] Comment on above: Result Comment: 05/09 0747: THIS IS A CORRECTED REPORT. NEUT % previously reported as: 84.6 H% Edited By:[facility] Reason:RELEASED WITHOUT A MANUAL DIFFERENTIAL Called to:KODAK GUERRERO RN LAB.[facility] 12/24/18. Performed By: #### B MP, FT4, TIBCFE, TSH, B12, TOI #### [facility] [address] [place] [address] 06138 RBC (Bld) [#/Vol] 3.74 10*6/uL Low 4.10-5.10 [facility] Comment on above: Performed By: #### B MP, FT4, TIBCFE, TSH, B12, TOI #### [facility] [address] [place] [address] [id number] RED CELL DISTRI WIDTH 13.8 % Normal 0-14.5 [facility] Comment on above: Performed By: #### B MP, FT4, TIBCFE, TSH, B12, TOI #### [facility] [address] [place] [address] [phone] WBC (Bld) [#/Vol] 14.4 10*3/uL High 4.8-10.8 [facility] Comment on above: Performed By: #### B MP, FT4, TIBCFE, TSH, B12, TOI #### [facility] [address] [place] [address] 28671 Hematocrit (Bld) [Volume fraction] 37.6 % Normal 37.0-47.0 [facility] Comment on above: Performed By: #### B MP, FT4, TIBCFE, TSH, B12, TOI #### [facility] [address] [place] [address] 49338 Hemoglobin (Bld) [Mass/Vol] 12.2 g/dL Normal 12.0-16.0 [facility] Comment on above: Performed By: #### B MP, FT4, TIBCFE, TSH, B12, TOI #### [facility] [address] [place] [address] 99023 MCH (RBC) [Entitic mass] 32.4 g/dl Low 33.0-37.0 [facility] Comment on above: Performed By: #### B MP, FT4, TIBCFE, TSH, B12, TOI #### [facility] [address] [place] [address] 85579 MCV (RBC) [Entitic vol] 99.5 fL High 81.0-99.0 [facility] Comment on above: Performed By: #### B MP, FT4, TIBCFE, TSH, B12, TOI #### [facility] [address] [place] [address] 80110 MEAN CORPUSCULAR HGB 32.3 pg High 27.0-31.0 [facility] Comment on above: Performed By: #### B MP, FT4, TIBCFE, TSH, B12, TOI #### [facility] [address] [place] [address] 02174 NUCLEATED RED BLOOD CELL 0.0 10*3/uL Normal 0.0-0.0 [facility] Comment on above: Performed By: #### B MP, FT4, TIBCFE, TSH, B12, TOI #### [facility] [address] [place] [address] NUCLEATED RED BLOOD CELL 0.0 % Normal 0.0-0.0 [facility] Comment on above: Performed By: #### B MP, FT4, TIBCFE, TSH, B12, TOI #### [facility] [address] [place] [address] 44814 PLATELET COUNT AUTOMATED 230 10*3/uL Normal 130-400 [facility] Comment on above: Performed By: #### B MP, FT4, TIBCFE, TSH, B12, TOI #### [facility] [address] [place] [address] [id number] Platelet mean volume (Bld) [Entitic vol] 9.8 fL Normal 9.6-12.3 [facility] [place] Comment on above: Performed By: #### B MP, FT4, TIBCFE, TSH, B12, TOI #### [facility] [address] [place] [address] [phone] RBC (Bld) [#/Vol] 3.78 10*6/uL Low 4.10-5.10 [facility] Comment on above: Performed By: #### B MP, FT4, TIBCFE, TSH, B12, TOI #### [facility] [address] [place] [address] 26261 RED CELL DISTRI WIDTH 13.8 % Normal 0-14.5 [facility] Comment on above: Performed By: #### B MP, FT4, TIBCFE, TSH, B12, TOI #### [facility] [address] [place] [address] 02241 WBC (Bld) [#/Vol] 15.8 10*3/uL High 4.8-10.8 [facility] Comment on above: Performed By: #### B MP, FT4, TIBCFE, TSH, B12, TOI #### [facility] [address] [place] [address] 33323 CTA CHESTon 12-24-2018 CTA-CHST Name: ROSA LANDERS Phys: CAM PADILLA MD : 1940 Age: 78 Sex: F Acct: [id number] Loc: 502 1 Exam Date: 12/23/2018 Status: ADM IN Radiology No: [id number] Unit No: [id number] EXAM# TYPE/EXAM RESULT [id number] CT/CTA CHEST SEE REPORT INDICATION: Shortness of breath for five days. Cough, congestion. History of chronic obstructive pulmonary disease. TECHNIQUE: CTA of the chest was performed with intravenous contrast. 3D angiographic image post processing was generated. Omnipaque-350 80 mL was administered intravenously. Automated mA/kV exposure control was utilized and patient examination was performed in strict accordance with principles of ALARA. RADIATION AMOUNT: 130.70 mGy-cm. COMPARISON: CT chest 06/24/14. XR chest of same date, 12/23/18. FINDINGS: Pulmonary arteries are suboptimally opacified with a questionable filling defect in the right lower lobe subsegmental pulmonary artery. The thoracic aorta is normal in course and caliber without dissection or aneurysm. Atherosclerotic vascular calcifications are identified. The heart is normal in size without pericardial effusion. Numerous calcified bilateral hilar lymph nodes are identified. There is no pleural effusion, pleural thickening, or pneumothorax. The airways are patent. Chronic emphysematous changes are seen. There is bibasilar patchy atelectasis. Right lower lobe consolidation is identified. There is also a multinodular airspace disease within the right lower lobe. Innumerable areas of groundglass changes are identified bilaterally especially within the bilateral upper lobes. Hepatomegaly is identified. Hepatic steatosis is seen. There are no acute fractures. No suspicious bony lesions. IMPRESSION: 1. Suboptimal opacification of the subsegmental pulmonary arteries. PAGE 1 Signed Report (CONTINUED) Name: BAENAROSA Phys: CAM PADILLA MD : 1940 Age: 78 Sex: F Acct: [id number] Loc: 502 1 Exam Date: 12/23/2018 Status: ADM IN Radiology No: [id number] Unit No: [id number] EXAM# TYPE/EXAM RESULT [id number] CT/CTA CHEST SEE REPORT Questionable filling defect in the right lower lobe subsegmental pulmonary artery cannot be excluded. No central pulmonary embolism is identified. 2. There is bibasilar dependent atelectasis. There are innumerable, multifocal bilateral multinodular airspace opacities seen bilaterally. 3. Chronic emphysematous changes are identified.. NOTIFICATION: The critical results of the study were discussed with, and acknowledged by RN-- Kennedy Ramires, by telephone on 12/24/2018 at 00:33. Signed by Mikki Ryan MD REPORT SIGNED IN OTHER VENDOR SYSTEM 12/24/2018 Reported By: Mikki Ryan M.D. CC: JERRY GIBSON MD Technologist: ARIEL MATA Transcribed Date/Time: 12/24/2018 (0044) Jacket Changer: SRI Printed Date/Time: 12/24/2018 (0044) PAGE 2 Signed Report Normal [facility] MANUAL DIFFERENTIALon 2018 Basophils (Bld) [#/Vol] 0.0 10*3/uL Normal 0-0.1 [facility] Comment on above: Performed By: #### B MP, FT4, TIBCFE, TSH, B12, TOI #### [facility] [address] [place] [address] EOSINOPHIL # 0.0 10*3/uL Normal 0-0.4 [facility] Comment on above: Performed By: #### B MP, FT4, TIBCFE, TSH, B12, TOI #### [facility] [address] [place] [address] IMMATURE GRANULOCYTES # 0.0 10*3/uL Normal 0-0.1 [facility] Comment on above: Performed By: #### B MP, FT4, TIBCFE, TSH, B12, TOI #### [facility] [address] [place] [address] LYMPHOCYTES 4 % Low 27-41 [facility] Comment on above: Performed By: #### B MP, FT4, TIBCFE, TSH, B12, TOI #### [facility] [address] [place] [address] Lymphocytes (Bld) [#/Vol] 0.6 10*3/uL Low 1.3-4.4 [facility] Comment on above: Performed By: #### B MP, FT4, TIBCFE, TSH, B12, TOI #### [facility] [address] [place] [address] 05654 MACROCYTOSIS SLIGHT Normal [facility] [place] Comment on above: Performed By: #### B MP, FT4, TIBCFE, TSH, B12, TOI #### [facility] [address] [place] [address] 82252 MONOCYTES 3 % Normal 3-9 [facility] Comment on above: Performed By: #### B MP, FT4, TIBCFE, TSH, B12, TOI #### [facility] [address] [place] [address] 77681 Monocytes (Bld) [#/Vol] 0.4 10*3/uL Normal 0.1-1.0 [facility] Comment on above: Performed By: #### B MP, FT4, TIBCFE, TSH, B12, TOI #### [facility] [address] [place] [address] 77668 NEUTROPHILS 93 % High 47-73 [facility] Comment on above: Performed By: #### B MP, FT4, TIBCFE, TSH, B12, TOI #### [facility] [address] [place] [address] 87405 Neutrophils (Bld) [#/Vol] 13.4 10*3/uL High 2.3-7.9 [facility] Comment on above: Performed By: #### B MP, FT4, TIBCFE, TSH, B12, TOI #### [facility] [address] [place] [address] 91545 PLATELET SUFFICIENCY NORMAL Normal NORMAL [facility] Comment on above: Performed By: #### B MP, FT4, TIBCFE, TSH, B12, TOI #### [facility] [address] [place] [address] 68353 ATYPICAL LYMPHS 1 % High 0-0 [facility] Comment on above: Performed By: #### B MP, FT4, TIBCFE, TSH, B12, TOI #### [facility] [address] [place] [address] Basophils (Bld) [#/Vol] 0.0 10*3/uL Normal 0-0.1 [facility] Comment on above: Performed By: #### B MP, FT4, TIBCFE, TSH, B12, TOI #### [facility] [address] [place] [address] 64226 EOSINOPHIL # 0.0 10*3/uL Normal 0-0.4 [facility] Comment on above: Performed By: #### B MP, FT4, TIBCFE, TSH, B12, TOI #### [facility] [address] [place] [address] 90684 IMMATURE GRANULOCYTES # 0.2 10*3/uL High 0-0.1 [facility] Comment on above: Performed By: #### B MP, FT4, TIBCFE, TSH, B12, TOI #### [facility] [address] [place] [address] 20717 LYMPHOCYTES 1 % Low 27-41 [facility] Comment on above: Performed By: #### B MP, FT4, TIBCFE, TSH, B12, TOI #### [facility] [address] [place] [address] 07218 Lymphocytes (Bld) [#/Vol] 0.3 10*3/uL Low 1.3-4.4 [facility] Comment on above: Performed By: #### B MP, FT4, TIBCFE, TSH, B12, TOI #### [facility] [address] [place] [address] 83279 METAMYELOCYTES 1 % High 0-0 [facility] [place] Comment on above: Performed By: #### B MP, FT4, TIBCFE, TSH, B12, TOI #### [facility] [address] [place] [address] 77209 MONOCYTES 6 % Normal 3-9 [facility] Comment on above: Performed By: #### B MP, FT4, TIBCFE, TSH, B12, TOI #### [facility] [address] [place] [address] Monocytes (Bld) [#/Vol] 0.9 10*3/uL Normal 0.1-1.0 [facility] Comment on above: Performed By: #### B MP, FT4, TIBCFE, TSH, B12, TOI #### [facility] [address] [place] [address] NEUTROPHILS 91 % High 47-73 [facility] Comment on above: Performed By: #### B MP, FT4, TIBCFE, TSH, B12, TOI #### [facility] [address] [place] [address] Neutrophils (Bld) [#/Vol] 14.4 10*3/uL High 2.3-7.9 [facility] Comment on above: Performed By: #### B MP, FT4, TIBCFE, TSH, B12, TOI #### [facility] [address] [place] [address] PLATELET SUFFICIENCY NORMAL Normal NORMAL [facility] Comment on above: Performed By: #### B MP, FT4, TIBCFE, TSH, B12, TOI #### [facility] [address] [place] [address] PROGRESS NOTEon 12-24-2018 Genetic Technologist Report [place], [place] PROGRESS NOTE NAME: ROSA LANDERS UNIT #: [id number] ROOM: [facility] DOCTOR: MANDO PADILLA MDM BIRTHDATE: [birth year] DOS: 12/24/2018 SUBJECTIVE: She has been noted reduction in symptoms of shortness of breath. The patient had a CTA of the chest that was completed yesterday evening. The diagnosis of acute pulmonary embolism noted in the right lower lobe pulmonary artery branches. She has not been noted symptoms of fever or chills. Coughing has been noted decreased. The wheezing was also decreased. She has reported a small symptoms of epistaxis at that time as well. She has been started on unfractionated therapeutic heparin per hospital protocol by Dr. Rosanne Gibson upon learning of the diagnosis of pulmonary embolism. She has not been reported any symptoms of fever or chills. Denies any pain of the lower extremities without any edema. Denies symptoms of nausea, vomiting, diarrhea, abdominal pain, hematemesis, melena, or hematochezia. Remaining systems were reviewed, they were noted all negative. PHYSICAL EXAMINATION: GENERAL: She was noted comfortable at this time, resting on the bed this morning. She has been using oxygen supplementation up to 6 liter nasal cannula. VITAL SIGNS: Normal temperature, respiratory rate 16, heart rate 70, blood pressure 135/57. Pulse oxygen saturation on high flow nasal cannula was 98% saturation. HEENT: No new change. NECK: Supple. CARDIOVASCULAR: S1, S2 audible. LUNGS: Noted decreased bedside with expiratory wheezing. There were no crackles. ABDOMEN: Soft, nontender. Bowel sounds present. EXTREMITIES: The patient without any acute edema. MUSCULOSKELETAL: She has got deformity. CENTRAL NERVOUS SYSTEM: Nonfocal. LABORATORY DATA: BMP in the labs today, BUN normal, creatinine was normal. CBC this morning, WBC count 15.8, hemoglobin and hematocrit normal, platelet count normal. CT of the chest that was completed yesterday was independently reviewed as well. Pulmonary artery assessment was noted suboptimal. Possibility of pulmonary emboli in the right lower lobe was also suspected and cannot be excluded completely. The patient was noted with area of basilar atelectasis. Multiple patchy nodular opacities noted in the lungs as well. Centrilobular emphysema changes was also noted. IMPRESSION: 1. The patient who has been currently noted with possibly pulmonary embolism, right lower pulmonary artery branch is not noted very conclusive diagnosis because of suboptimal study. 2. Acute exacerbation of chronic obstructive pulmonary disease. 3. Nodular opacities. The patient also noted with suspected acute pulmonary infection. Chronic infection such as mycobacterium avium complex cannot be completely excluded. 4. Small epistaxis. [place], [place] [facility]GR[id number] UNIT #: [id number] ROOM: [facility] DOCTOR: KIKI GUERRERO MD,CAM BIRTHDATE: [birth year] PLAN OF MANAGEMENT: Continuation of the patient's current therapy, plan of management with heparin as well. Order the ultrasound of bilateral lower extremities as well. Continue oxygen supplementation. For the epistaxis the patient will be switched to the aerosol trach mask Gradual reduction of the oxygen supplementation, maintain pulse ox 92% or greater. Other supportive therapy, plan of management, additional treatment changes need to be done based on progressive illness. At some point of time, the patient also benefit of bronchoscopy to exclude chronic pulmonary infections as well. Switching the patient on oral anticoagulation for this patient, possibly could be done from tomorrow. The past, family, social, surgical history remains unchanged from yesterday. CAM SWANSON MD CM:PNTRANS [id number] CAM GUERRERO MD 01/02/19 0825 interface Normal [facility] PROTHROMBIN TIMEon 9 PT Coag (PPP) [Time] 0.9 s Low 2.0-3.5 [facility] Comment on above: Result Comment: INR THERAPEUTIC RANGE: GROUP A 2.0-3.0 INR GROUP B 2.5-3.5 INR GROUP A SUGGESTED INDICATIONS: PROPHYLAXIS AND TREATMENT OF VENOUS THROMBOSIS TREATMENT OF PULMONARY EMBOLISM ATRIAL FIBRILLATION GROUP B SUGGESTED INDICATIONS: MECHANICAL PROSTHETIC VALVES Performed By: #### B MP, FT4, TIBCFE, TSH, B12, TOI #### [facility] [address] [place] [address] PT Coag (PPP) [Time] 10.3 s Normal 8.9-12.20 [facility] Comment on above: Performed By: #### B MP, FT4, TIBCFE, TSH, B12, TOI #### [facility] [address] [place] [address] BASIC METABOLIC PANELon 11 Calcium [Mass/Vol] 8.6 mg/dL Normal 8.5-10.5 [facility] Comment on above: Performed By: #### B MP, FT4, TIBCFE, TSH, B12, TOI #### [facility] [address] [place] [address] Chloride [Moles/Vol] 112 mmol/L High 98-107 [facility] Comment on above: Performed By: #### B MP, FT4, TIBCFE, TSH, B12, TOI #### [facility] [address] [place] [address] CO2 [Moles/Vol] 26 mmol/L Normal 21-32 [facility] Comment on above: Performed By: #### B MP, FT4, TIBCFE, TSH, B12, TOI #### [facility] [address] [place] [address] Creatinine [Mass/Vol] 0.99 mg/dL Normal 0.55-1.02 [facility] Comment on above: Performed By: #### B MP, FT4, TIBCFE, TSH, B12, TOI #### [facility] [address] [place] [address] EST GLOM FILT > 60 Normal [facility] Comment on above: Result Comment: Result Units: mL/min/1.73 m2 Note: Persistent reduction for 3 months or more of an eGFR of <60 ml/min/1.73 m2 defines Chronic Kidney Disease (CKD). Patients with eGFR values greater than or equal to 60 ml/min/1.73 m2 may also have CKD if evidence of persistent proteinuria is present. STAGES OF CKD eGFR Stage 1 Kidney damage with normal kidney function >=90 Stage 2 Kidney damage with mild loss of kidney function 89-60 Stage 3a Mild to moderate loss of kidney function 59-44 Stage 3b Moderate to severe loss of kidney function 43-30 Stage 4 Severe loss of kidney function 29-15 Stage 5 Kidney failure < 15 . Performed By: #### B MP, FT4, TIBCFE, TSH, B12, TOI #### [facility] [address] [place] [address] ESTIMATED GLOM FILT RATE 54 mL/min/ Low [facility] Comment on above: Performed By: #### B MP, FT4, TIBCFE, TSH, B12, TOI #### [facility] [address] [place] [address] Glucose [Mass/Vol] 162 mg/dL High 65-99 [facility] Comment on above: Performed By: #### B MP, FT4, TIBCFE, TSH, B12, TOI #### [facility] [address] [place] [address] Potassium [Moles/Vol] 4.1 mmol/L Normal 3.5-5.1 [facility] Comment on above: Performed By: #### B MP, FT4, TIBCFE, TSH, B12, TOI #### [facility] [address] [place] [address] Sodium [Moles/Vol] 143 mmol/L Normal 136-145 [facility] Comment on above: Performed By: #### B MP, FT4, TIBCFE, TSH, B12, TOI #### [facility] [address] [place] [address] Urea nitrogen [Mass/Vol] 16 mg/dL Normal 7-24 [facility] Comment on above: Performed By: #### B MP, FT4, TIBCFE, TSH, B12, TOI #### [facility] [address] [place] [address] 88916 BLOOD CULTURE AEROBICon BLOOD CULTURE AEROBIC BLOOD CULTURE AEROBIC NO BACTERIAL GROWTH BLOOD CULTURE ANAEROBIC (NOT PROCESSED--PEDIATRIC AEROBIC BOTTLE ONLY) Normal [facility] Comment on above: Performed By: #### B MP, FT4, TIBCFE, TSH, B12, TOI #### [facility] [address] [place] [address] 47153 CBC with DIFFERENTIALon Hematocrit (Bld) [Volume fraction] 38.3 % Normal 37.0-47.0 [facility] Comment on above: Performed By: #### B MP, FT4, TIBCFE, TSH, B12, TOI #### [facility] [address] [place] [address] 39807 Hemoglobin (Bld) [Mass/Vol] 12.2 g/dL Normal 12.0-16.0 [facility] Comment on above: Performed By: #### B MP, FT4, TIBCFE, TSH, B12, TOI #### [facility] [address] [place] [address] MCH (RBC) [Entitic mass] 31.9 g/dl Low 33.0-37.0 [facility] Comment on above: Performed By: #### B MP, FT4, TIBCFE, TSH, B12, TOI #### [facility] [address] [place] [address] MCV (RBC) [Entitic vol] 99.2 fL High 81.0-99.0 [facility] Comment on above: Performed By: #### B MP, FT4, TIBCFE, TSH, B12, TOI #### [facility] [address] [place] [address] 56196 MEAN CORPUSCULAR HGB 31.6 pg High 27.0-31.0 [facility] Comment on above: Performed By: #### B MP, FT4, TIBCFE, TSH, B12, TOI #### [facility] [address] [place] [address] NUCLEATED RED BLOOD CELL 0.0 % Normal 0.0-0.0 [facility] Comment on above: Performed By: #### B MP, FT4, TIBCFE, TSH, B12, TOI #### [facility] [address] [place] [address] NUCLEATED RED BLOOD CELL 0.0 10*3/uL Normal 0.0-0.0 [facility] Comment on above: Performed By: #### B MP, FT4, TIBCFE, TSH, B12, TOI #### [facility] [address] [place] [address] PLATELET COUNT AUTOMATED 210 10*3/uL Normal 130-400 [facility] Comment on above: Performed By: #### B MP, FT4, TIBCFE, TSH, B12, TOI #### [facility] [address] [place] [address] Platelet mean volume (Bld) [Entitic vol] 9.9 fL Normal 9.6-12.3 [facility] [place] Comment on above: Performed By: #### B MP, FT4, TIBCFE, TSH, B12, TOI #### [facility] [address] [place] [address] 69127 RBC (Bld) [#/Vol] 3.86 10*6/uL Low 4.10-5.10 [facility] Comment on above: Performed By: #### B MP, FT4, TIBCFE, TSH, B12, TOI #### [facility] [address] [place] [address] RED CELL DISTRI WIDTH 13.7 % Normal 0-14.5 [facility] Comment on above: Performed By: #### B MP, FT4, TIBCFE, TSH, B12, TOI #### [facility] [address] [place] [address] WBC (Bld) [#/Vol] 14.1 10*3/uL High 4.8-10.8 [facility] Comment on above: Performed By: #### B MP, FT4, TIBCFE, TSH, B12, TOI #### [facility] [address] [place] [address] [phone] CHEST (2 V)on 12-23-2018 CRCXR Name: ROSA LANDERS Phys: DREW ANTHONY,KATHRYN : 1940 Age: 78 Sex: F Acct: [id number] Loc: 502 1 Exam Date: 12/23/2018 Status: ADM IN Radiology No: [id number] Unit No: [id number] EXAM# TYPE/EXAM RESULT [id number] RAD/CHEST (2 V) SEE REPORT INDICATION: Difficulty breathing and shortness of breath. Additional History: Heavy smoker. TECHNIQUE: Frontal and lateral chest. COMPARISON: 12/21/2018 XR chest. FINDINGS: Large lung volumes bilaterally and symmetrically appears similar to the prior exam. Reticulonodular interstitial markings and the CT scan of 2015. The findings likely represent fibrosis. Low bone mineral density suspected. No effusion. No pneumothorax. The heart is upper limits of normal in size. There are degenerative changes at the lower thoracic spine. IMPRESSION: Large lung volumes, suggesting emphysema, and, a prominent interstitial pattern bilaterally, likely fibrosis, appear similar to prior studies. No acute consolidation or effusion. Signed by Norm Rogers MD REPORT SIGNED IN OTHER VENDOR SYSTEM 12/23/2018 Reported By: NORM ROGERS M.D. CC: JERRY GIBSON MD Technologist: CAROLINA SOLANO Transcribed Date/Time: 12/23/2018 (2155) Jacket Changer: SRI Printed Date/Time: 12/23/2018 (2155) PAGE 1 Signed Report Normal [facility] GRAM STAINon 12-23-2018 Microscopic observation Gram stain Nom (Unsp spec) GRAM STAIN MODERATE WHITE BLOOD CELLS RARE GRAM POSITIVE COCCI IN PAIRS SPUTUM CULTURE NORMAL CHIDI Normal [facility] Comment on above: Performed By: #### B MP, FT4, TIBCFE, TSH, B12, TOI #### [facility] [address] [place] [address] MANUAL DIFFERENTIALon 2018 Basophils (Bld) [#/Vol] 0.0 10*3/uL Normal 0-0.1 [facility] Comment on above: Performed By: #### B MP, FT4, TIBCFE, TSH, B12, TOI #### [facility] [address] [place] [address] 52245 EOSINOPHIL # 0.0 10*3/uL Normal 0-0.4 [facility] Comment on above: Performed By: #### B MP, FT4, TIBCFE, TSH, B12, TOI #### [facility] [address] [place] [address] 07653 IMMATURE GRANULOCYTES # 0.0 10*3/uL Normal 0-0.1 [facility] Comment on above: Performed By: #### B MP, FT4, TIBCFE, TSH, B12, TOI #### [facility] [address] [place] [address] LYMPHOCYTES 8 % Low 27-41 [facility] Comment on above: Performed By: #### B MP, FT4, TIBCFE, TSH, B12, TOI #### [facility] [address] [place] [address] Lymphocytes (Bld) [#/Vol] 1.1 10*3/uL Low 1.3-4.4 [facility] Comment on above: Performed By: #### B MP, FT4, TIBCFE, TSH, B12, TOI #### [facility] [address] [place] [address] MONOCYTES 2 % Low 3-9 [facility] Comment on above: Performed By: #### B MP, FT4, TIBCFE, TSH, B12, TOI #### [facility] [address] [place] [address] Monocytes (Bld) [#/Vol] 0.3 10*3/uL Normal 0.1-1.0 [facility] Comment on above: Performed By: #### B MP, FT4, TIBCFE, TSH, B12, TOI #### [facility] [address] [place] [address] 73519 NEUTROPHILS 90 % High 47-73 [facility] Comment on above: Performed By: #### B MP, FT4, TIBCFE, TSH, B12, TOI #### [facility] [address] [place] [address] 25924 Neutrophils (Bld) [#/Vol] 12.7 10*3/uL High 2.3-7.9 [facility] Comment on above: Performed By: #### B MP, FT4, TIBCFE, TSH, B12, TOI #### [facility] [address] [place] [address] 46394 PLATELET SUFFICIENCY NORMAL Normal NORMAL [facility] Comment on above: Performed By: #### B MP, FT4, TIBCFE, TSH, B12, TOI #### [facility] [address] [place] [address] 70651 RBC morphology finding Nom (Bld) NORMAL Normal NORMAL [facility] Comment on above: Performed By: #### B MP, FT4, TIBCFE, TSH, B12, TOI #### [facility] [address] [place] [address] REPORT OF CONSULTATIONon Genetic Technologist Report [place], [place] REPORT OF CONSULTATION NAME: ROSA LANDERS #: [id number] UNIT #: [id number] ROOM: [facility] DOCTOR: CAM PADILLA MD BIRTHDATE: [birth year] DOS: 12/23/2018 PULMONARY CONSULTATION, EVALUATION AND MANAGEMENT CONSULTATION REQUESTED BY: Dr. Jerry Gibson. REASON FOR CONSULTATION: For assessment of acute exacerbation of COPD. HISTORY OF PRESENT ILLNESS: This is a 78-year-old white female patient with known history of COPD, chronic O2 dependence who has been seen in the office of primary care physician, Dr. Rosanne Gibson. The patient stated that she went to see him because she would like to have Zithromax for acute respiratory symptoms. She admitted that the respiratory symptoms have been ongoing for past several days, which are noted gradually worsening and inability to expectorate sputum with severe cough. She was also reported symptoms of shortness of breath and wheezing as well. She was seen in the office of Dr. Jerry Gibson, noted with hypoxia and was advised for hospitalization. The patient stated that she initially resisted to be admitted to the hospital, but later on was agreeable to be admitted to the hospital. The patient has been admitted to the hospital for further care for respiratory failure with acute exacerbation of chronic obstructive pulmonary disease. Since hospitalization, the patient stated cough has been noted somewhat decreased and able to expectorate some sputum. She is still noted with symptoms of wheezing and shortness of breath, which has been decreasing, but not completely resolved. REVIEW OF SYSTEMS: CONSTITUTIONAL: Fatigue and tiredness noted without any symptoms of fever or chills. EYES: Denies any burning, redness, or tenderness. EARS, NOSE, AND THROAT SYMPTOMS: Denies sore throat, hoarseness, otalgia, postnasal drainage or epistaxis. CARDIOVASCULAR: Denies anginal pain, edema, or pain of the lower extremities. GASTROINTESTINAL SYMPTOMS: Denies dysphagia, nausea, vomiting, diarrhea, abdominal pain, hematemesis, melena, or hematochezia. GENITOURINARY SYMPTOMS: No dysuria, suprapubic pain, or hematuria. MUSCULOSKELETAL: No acute joint pain, redness, or tenderness. SKIN: No lesions or rashes. CENTRAL NERVOUS SYSTEM: No dizziness, headache, diplopia, or syncopal episodes. Remaining systems were reviewed. They were noted all negative. PAST MEDICAL HISTORY: Known: 1. COPD, longstanding. 2. Essential hypertension. 3. Gastroesophageal reflux. 4. Hyperlipidemia. 5. Hypothyroidism. 6. Intervertebral disk disease. 7. Chronic heavy nicotine dependence. 8. History of allergic rhinitis. [place], [place] REPORT OF CONSULTATION NAME: ROSA LANDERS UNIT #: [id number] ROOM: [facility] DOCTOR: KIKI GUERRERO MD,CAM BIRTHDATE: [birth year] 9. Restless legs syndrome. PAST SURGICAL HISTORY: 1. Biopsy of the breast that was benign. 2. Bronchoscopy many years ago. SOCIAL HISTORY: The patient stated she lives at home. Denies history of alcohol use or illicit drug use. Noted tobacco use, chronic, since teenager 1.5 pack of cigarettes per day, active use. FAMILY HISTORY: The patient's father of complication of skin cancer. Mother with complication of stomach cancer. HOME MEDICATIONS: Listed on admission as Ventolin HFA, vitamin D with calcium, Coreg, gabapentin, levothyroxine, lisinopril, loratadine, Myrbetriq, omeprazole, pravastatin, and Requip. CURRENT MEDICATIONS: Which has been administered on this hospitalization were noted as use of lisinopril, Lipitor, loratadine, vitamin D, Lovenox for DVT prophylaxis, Tessalon Perles p.r.n., omeprazole, levothyroxine, Requip, Coreg, gabapentin, Mucinex, IV Solu-Medrol 40 mg b.i.d., DuoNeb every 4 hour and every 6 hours p.r.n. use, nicotine replacement patches, Levaquin intravenously and some other p.r.n. meds. DRUG ALLERGIES: REPORTED ALLERGIES TO THE ASPIRIN CAUSING BLEEDING. PHYSICAL EXAMINATION: GENERAL: A 78-year-old female currently noted to be awake, alert, without any distress, sitting on her bed. Height of 5 feet 5 inches, weight of 119 pounds, BMI is 19.8. VITAL SIGNS: For the patient which were recorded shows temperature 101 degrees Fahrenheit noted on 12/21/2018 and after that noted afebrile, respiratory rate 20-18, heart rate 62-77, blood pressure 153/69-109/72. Pulse oxygen saturation recorded on 2 liters nasal cannula 99% saturation, later on high flow nasal cannula 94-92% saturation recorded. HEENT: Examination shows head was atraumatic. Eyes nonicterus. NECK: Supple. CARDIOVASCULAR: S1, S2 audible. LUNGS: The patient noted diffuse reduction in breath sounds with expiratory wheezing. There were no crackles. ABDOMEN: Soft, nontender. Bowel sounds present. EXTREMITIES: The patient without edema, clubbing, or cyanosis. MUSCULOSKELETAL: Without any acute deformities. CENTRAL NERVOUS SYSTEM: Cranial nerves 2-12 intact. LABORATORY DATA: The patient's chest x-ray that was done on admission was reviewed, one-view chest x-ray was noted with changes of severe COPD and hyperinflation. Possibility of fibrotic changes in the upper lung was also noted. In addition to that, a small nodule, a nipple shadow in the left lower lung cannot be completely excluded. CBC that was done on 12/21/2018, WBC count [place], [place] REPORT OF CONSULTATION NAME: ROSA LANDERS UNIT #: [id number] ROOM: [facility] DOCTOR: KIKI GUERRERO MD,[facility] BIRTHDATE: [birth year] 12.8, hemoglobin, hematocrit and platelet count normal. Lactic acid 1.5 on 12/21/2018. CMP 12/21/2018, BUN 16, creatinine 1.07, and sodium 134. CBC that was done this morning was noted as WBC count 14.1, hemoglobin, hematocrit, and platelet count was normal. Blood culture from admission showed no bacterial growth of both sets. Culture of the sputum of 12/21/2018 noted normal chidi. Influenza A and B, nasal washing antigen on 12/21/2018 was noted as negative. Arterial blood gas that was done on 12/22/2018, pH of 7.42, pCO2 of 38, and pO2 of 58.75 liters nasal cannula. IMPRESSION: 1. Acute hypoxemic respiratory failure with acute severe exacerbation of chronic obstructive pulmonary disease. 2. Interstitial lung disease versus interstitial pulmonary fibrotic changes. Interstitial pneumonia cannot be completely excluded in the upper lungs. 3. Rule out pulmonary nodule in the left lower lobe as well. 4. Chronic heavy nicotine dependence was also seen. 5. Severe hypoxia noted, which remains persistent. PLAN OF MANAGEMENT: At this time, the CT scan of the chest will be done, could be CTA, for assessment of pulmonary artery and lung parenchyma, also exclude any interstitial lung disease of significance and also to exclude pulmonary nodule in the left lower lobe with heavy long-term nicotine dependence. Bronchodilators will be changed to albuterol sulfate for the medical management of COPD. No changes in antibiotic will be necessary. Other therapy, plan of management, additional treatment changes will be made based on the progression of the illness. In case of increased work of breathing occurred, certainly use of BiPAP would be beneficial. Other therapy, plan of management, additional treatment changes will be made to the treatment based on the progression of her illness. Thank you for allowing me to participate in the care of this patient. CAM SWANSON MD CM:CONSTR:REPORT OF CONSULTATION 1514 01/02/19 0823 interface Normal [facility] ARTERIAL BLOOD GASon 019 ABG BASE EXCESS 0.9 mmol/L Normal -2.0-2.0 [facility] Comment on above: Order Comment: ROOM AIR? NFIO2 % and/or LITER FLOW: 5LTEMP: 98.8IS THE PATIENT BEING MECHANICALLY VENTILATED? N Performed By: #### B MP, FT4, TIBCFE, TSH, B12, TOI #### [facility] [address] [place] [address] ABG BASE EXCESS CF 0.7 mmol/L Normal -2.0-2.0 [facility] Comment on above: Order Comment: ROOM AIR? NFIO2 % and/or LITER FLOW: 5LTEMP: 98.8IS THE PATIENT BEING MECHANICALLY VENTILATED? N Performed By: #### B MP, FT4, TIBCFE, TSH, B12, TOI #### [facility] [address] [place] [address] ABG CO2 CONTENT 25.8 mmol/L Normal 23-27 [facility] Comment on above: Order Comment: ROOM AIR? NFIO2 % and/or LITER FLOW: 5LTEMP: 98.8IS THE PATIENT BEING MECHANICALLY VENTILATED? N Performed By: #### B MP, FT4, TIBCFE, TSH, B12, TOI #### [facility] [address] [place] [address] ABG HCO3 24.6 mmol/l Normal 22-26 [facility] Comment on above: Order Comment: ROOM AIR? NFIO2 % and/or LITER FLOW: 5LTEMP: 98.8IS THE PATIENT BEING MECHANICALLY VENTILATED? N Performed By: #### B MP, FT4, TIBCFE, TSH, B12, TIO #### [facility] [address] [place] [address] ARTERIAL BLOOD GAS PCO2 38.2 mmHg Normal 35-45 [facility] Comment on above: Order Comment: ROOM AIR? NFIO2 % and/or LITER FLOW: 5LTEMP: 98.8IS THE PATIENT BEING MECHANICALLY VENTILATED? N Performed By: #### B MP, FT4, TIBCFE, TSH, B12, TOI #### [facility] [address] [place] [address] 09031 ARTERIAL BLOOD GAS PH 7.425 Normal 7.35-7.45 [facility] Comment on above: Order Comment: ROOM AIR? NFIO2 % and/or LITER FLOW: 5LTEMP: 98.8IS THE PATIENT BEING MECHANICALLY VENTILATED? N Performed By: #### B MP, FT4, TIBCFE, TSH, B12, TOI #### [facility] [address] [place] [address] 28411 ARTERIAL BLOOD GAS PO2 58.7 mmHg Low 80-90 [facility] Comment on above: Order Comment: ROOM AIR? NFIO2 % and/or LITER FLOW: 5LTEMP: 98.8IS THE PATIENT BEING MECHANICALLY VENTILATED? N Performed By: #### B MP, FT4, TIBCFE, TSH, B12, TOI #### [facility] [address] [place] [address] 12595 Oxygen saturation in Blood 91.0 % Low 95-97 [facility] Comment on above: Order Comment: ROOM AIR? NFIO2 % and/or LITER FLOW: 5LTEMP: 98.8IS THE PATIENT BEING MECHANICALLY VENTILATED? N Performed By: #### B MP, FT4, TIBCFE, TSH, B12, TOI #### [facility] [address] [place] [address] BASIC METABOLIC PANELon 11-0 Calcium [Mass/Vol] 8.4 mg/dL Low 8.5-10.5 [facility] Comment on above: Performed By: #### B MP, FT4, TIBCFE, TSH, B12, TOI #### [facility] [address] [place] [address] Chloride [Moles/Vol] 102 mmol/L Normal 98-107 [facility] Comment on above: Performed By: #### B MP, FT4, TIBCFE, TSH, B12, TOI #### [facility] [address] [place] [address] CO2 [Moles/Vol] 26 mmol/L Normal 21-32 [facility] Comment on above: Performed By: #### B MP, FT4, TIBCFE, TSH, B12, TOI #### [facility] [address] [place] [address] Creatinine [Mass/Vol] 1.02 mg/dL Normal 0.55-1.02 [facility] Comment on above: Performed By: #### B MP, FT4, TIBCFE, TSH, B12, TOI #### [facility] [address] [place] [address] EST GLOM FILT > 60 Normal [facility] Comment on above: Result Comment: Result Units: mL/min/1.73 m2 Note: Persistent reduction for 3 months or more of an eGFR of <60 ml/min/1.73 m2 defines Chronic Kidney Disease (CKD). Patients with eGFR values greater than or equal to 60 ml/min/1.73 m2 may also have CKD if evidence of persistent proteinuria is present. STAGES OF CKD eGFR Stage 1 Kidney damage with normal kidney function >=90 Stage 2 Kidney damage with mild loss of kidney function 89-60 Stage 3a Mild to moderate loss of kidney function 59-44 Stage 3b Moderate to severe loss of kidney function 43-30 Stage 4 Severe loss of kidney function 29-15 Stage 5 Kidney failure < 15 . Performed By: #### B MP, FT4, TIBCFE, TSH, B12, TOI #### [facility] [address] [place] [address] ESTIMATED GLOM FILT RATE 53 mL/min/ Low [facility] Comment on above: Performed By: #### B MP, FT4, TIBCFE, TSH, B12, TOI #### [facility] [address] [place] [address] Glucose [Mass/Vol] 157 mg/dL High 65-99 [facility] Comment on above: Performed By: #### B MP, FT4, TIBCFE, TSH, B12, TOI #### [facility] [address] [place] [address] 66101 Potassium [Moles/Vol] 4.2 mmol/L Normal 3.5-5.1 [facility] Comment on above: Performed By: #### B MP, FT4, TIBCFE, TSH, B12, TOI #### [facility] [address] [place] [address] Sodium [Moles/Vol] 134 mmol/L Low 136-145 [facility] Comment on above: Performed By: #### B MP, FT4, TIBCFE, TSH, B12, TOI #### [facility] [address] [place] [address] Urea nitrogen [Mass/Vol] 19 mg/dL Normal 7-24 [facility] Comment on above: Performed By: #### B MP, FT4, TIBCFE, TSH, B12, TOI #### [facility] [address] [place] [address] 20293 CBC with DIFFERENTIALon 11-0 2019 Basophils (Bld) [#/Vol] 0.0 10*3/uL Normal 0.0-0.1 [facility] Comment on above: Performed By: #### B MP, FT4, TIBCFE, TSH, B12, TOI #### [facility] [address] [place] [address] 70704 Basophils/100 WBC (Bld) 0.1 % Normal 0.0-1.0 [facility] Comment on above: Performed By: #### B MP, FT4, TIBCFE, TSH, B12, TOI #### [facility] [address] [place] [address] 83068 Eosinophils (Bld) [#/Vol] 0.0 10*3/uL Normal 0.0-0.4 [facility] Comment on above: Performed By: #### B MP, FT4, TIBCFE, TSH, B12, TOI #### [facility] [address] [place] [address] 75016 Eosinophils/100 WBC (Bld) 0.0 % Low 1.0-4.0 [facility] Comment on above: Performed By: #### B MP, FT4, TIBCFE, TSH, B12, TOI #### [facility] [address] [place] [address] 75847 Hematocrit (Bld) [Volume fraction] 37.5 % Normal 37.0-47.0 [facility] Comment on above: Performed By: #### B MP, FT4, TIBCFE, TSH, B12, TOI #### [facility] [address] [place] [address] 91408 Hemoglobin (Bld) [Mass/Vol] 12.2 g/dL Normal 12.0-16.0 [facility] Comment on above: Performed By: #### B MP, FT4, TIBCFE, TSH, B12, TOI #### [facility] [address] [place] [address] 37310 IG # 0.1 10*3/uL Normal 0.0-0.1 [facility] Comment on above: Performed By: #### B MP, FT4, TIBCFE, TSH, B12, TOI #### [facility] [address] [place] [address] 86234 IG % 0.7 % Normal 0.0-1.0 [facility] Comment on above: Performed By: #### B MP, FT4, TIBCFE, TSH, B12, TOI #### [facility] [address] [place] [address] Lymphocytes (Bld) [#/Vol] 1.0 10*3/uL Low 1.3-4.4 [facility] Comment on above: Performed By: #### B MP, FT4, TIBCFE, TSH, B12, TOI #### [facility] [address] [place] [address] 37042 Lymphocytes/100 WBC (Bld) 8.6 % Low 27.0-41.0 [facility] Comment on above: Performed By: #### B MP, FT4, TIBCFE, TSH, B12, TOI #### [facility] [address] [place] [address] 55099 MCH (RBC) [Entitic mass] 32.5 g/dl Low 33.0-37.0 [facility] Comment on above: Performed By: #### B MP, FT4, TIBCFE, TSH, B12, TOI #### [facility] [address] [place] [address] 54107 MCV (RBC) [Entitic vol] 97.2 fL Normal 81.0-99.0 [facility] Comment on above: Performed By: #### B MP, FT4, TIBCFE, TSH, B12, TOI #### [facility] [address] [place] [address] 75250 MEAN CORPUSCULAR HGB 31.6 pg High 27.0-31.0 [facility] Comment on above: Performed By: #### B MP, FT4, TIBCFE, TSH, B12, TOI #### [facility] [address] [place] [address] 54008 Monocytes (Bld) [#/Vol] 0.1 10*3/uL Normal 0.1-1.0 [facility] Comment on above: Performed By: #### B MP, FT4, TIBCFE, TSH, B12, TOI #### [facility] [address] [place] [address] 91475 Monocytes/100 WBC (Bld) 0.9 % Low 3.0-9.0 [facility] Comment on above: Performed By: #### B MP, FT4, TIBCFE, TSH, B12, TOI #### [facility] [address] [place] [address] 49684 Neutrophils (Bld) [#/Vol] 10.0 10*3/uL High 2.3-7.9 [facility] Comment on above: Performed By: #### B MP, FT4, TIBCFE, TSH, B12, TOI #### [facility] [address] [place] [address] 47128 Neutrophils/100 WBC (Bld) 89.7 % High 47.0-73.0 [facility] Comment on above: Performed By: #### B MP, FT4, TIBCFE, TSH, B12, TOI #### [facility] [address] [place] [address] 20239 NUCLEATED RED BLOOD CELL 0.0 % Normal 0.0-0.0 [facility] Comment on above: Performed By: #### B MP, FT4, TIBCFE, TSH, B12, TOI #### [facility] [address] [place] [address] 50319 NUCLEATED RED BLOOD CELL 0.0 10*3/uL Normal 0.0-0.0 [facility] Comment on above: Performed By: #### B MP, FT4, TIBCFE, TSH, B12, TOI #### [facility] [address] [place] [address] 11864 PLATELET COUNT AUTOMATED 194 10*3/uL Normal 130-400 [facility] Comment on above: Performed By: #### B MP, FT4, TIBCFE, TSH, B12, TOI #### [facility] [address] [place] [address] 29898 Platelet mean volume (Bld) [Entitic vol] 10.4 fL Normal 9.6-12.3 [facility] [place] Comment on above: Performed By: #### B MP, FT4, TIBCFE, TSH, B12, TOI #### [facility] [address] [place] [address] RBC (Bld) [#/Vol] 3.86 10*6/uL Low 4.10-5.10 [facility] Comment on above: Performed By: #### B MP, FT4, TIBCFE, TSH, B12, TOI #### [facility] [address] [place] [address] 94327 RED CELL DISTRI WIDTH 13.5 % Normal 0-14.5 [facility] Comment on above: Performed By: #### B MP, FT4, TIBCFE, TSH, B12, TOI #### [facility] [address] [place] [address] [id number] WBC (Bld) [#/Vol] 11.2 10*3/uL High 4.8-10.8 [facility] Comment on above: Performed By: #### B MP, FT4, TIBCFE, TSH, B12, TOI #### [facility] [address] [place] [address] 47735 MAGNESIUMon 12-22-2018 Magnesium [Mass/Vol] 2.4 mg/dL High 1.5-2.1 [facility] Comment on above: Performed By: #### B MP, FT4, TIBCFE, TSH, B12, TOI #### [facility] [address] [place] [address] 41139 PHOSPHOROUSon 12-22-2018 PHOSPHOROUS 3.6 mg/dL Normal 2.5-4.9 [facility] Comment on above: Performed By: #### B MP, FT4, TIBCFE, TSH, B12, TOI #### [facility] [address] [place] [address] 85220 CBC with DIFFERENTIALon 10-3 Basophils (Bld) [#/Vol] 0.0 10*3/uL Normal 0.0-0.1 [facility] Comment on above: Performed By: #### B MP, FT4, TIBCFE, TSH, B12, TOI #### [facility] [address] [place] [address] 31117 Basophils/100 WBC (Bld) 0.2 % Normal 0.0-1.0 [facility] Comment on above: Performed By: #### B MP, FT4, TIBCFE, TSH, B12, TOI #### [facility] [address] [place] [address] 01253 Eosinophils (Bld) [#/Vol] 0.1 10*3/uL Normal 0.0-0.4 [facility] Comment on above: Performed By: #### B MP, FT4, TIBCFE, TSH, B12, TOI #### [facility] [address] [place] [address] 07711 Eosinophils/100 WBC (Bld) 0.7 % Low 1.0-4.0 [facility] Comment on above: Performed By: #### B MP, FT4, TIBCFE, TSH, B12, TOI #### [facility] [address] [place] [address] 66358 Hematocrit (Bld) [Volume fraction] 41.0 % Normal 37.0-47.0 [facility] Comment on above: Performed By: #### B MP, FT4, TIBCFE, TSH, B12, TOI #### [facility] [address] [place] [address] 43956 Hemoglobin (Bld) [Mass/Vol] 13.3 g/dL Normal 12.0-16.0 [facility] Comment on above: Performed By: #### B MP, FT4, TIBCFE, TSH, B12, TOI #### [facility] [address] [place] [address] 22651 IG # 0.0 10*3/uL Normal 0.0-0.1 [facility] Comment on above: Performed By: #### B MP, FT4, TIBCFE, TSH, B12, TOI #### [facility] [address] [place] [address] IG % 0.2 % Normal 0.0-1.0 [facility] Comment on above: Performed By: #### B MP, FT4, TIBCFE, TSH, B12, TOI #### [facility] [address] [place] [address] 04938 Lymphocytes (Bld) [#/Vol] 1.5 10*3/uL Normal 1.3-4.4 [facility] Comment on above: Performed By: #### B MP, FT4, TIBCFE, TSH, B12, TOI #### [facility] [address] [place] [address] 42315 Lymphocytes/100 WBC (Bld) 12.0 % Low 27.0-41.0 [facility] Comment on above: Performed By: #### B MP, FT4, TIBCFE, TSH, B12, TOI #### [facility] [address] [place] [address] 39931 MCH (RBC) [Entitic mass] 32.4 g/dl Low 33.0-37.0 [facility] Comment on above: Performed By: #### B MP, FT4, TIBCFE, TSH, B12, TOI #### [facility] [address] [place] [address] 05780 MCV (RBC) [Entitic vol] 98.8 fL Normal 81.0-99.0 [facility] Comment on above: Performed By: #### B MP, FT4, TIBCFE, TSH, B12, TOI #### [facility] [address] [place] [address] 33361 MEAN CORPUSCULAR HGB 32.0 pg High 27.0-31.0 [facility] Comment on above: Performed By: #### B MP, FT4, TIBCFE, TSH, B12, TOI #### [facility] [address] [place] [address] 29410 Monocytes (Bld) [#/Vol] 1.0 10*3/uL Normal 0.1-1.0 [facility] Comment on above: Performed By: #### B MP, FT4, TIBCFE, TSH, B12, TOI #### [facility] [address] [place] [address] 71682 Monocytes/100 WBC (Bld) 7.9 % Normal 3.0-9.0 [facility] Comment on above: Performed By: #### B MP, FT4, TIBCFE, TSH, B12, TOI #### [facility] [address] [place] [address] 53350 Neutrophils (Bld) [#/Vol] 10.1 10*3/uL High 2.3-7.9 [facility] Comment on above: Performed By: #### B MP, FT4, TIBCFE, TSH, B12, TOI #### [facility] [address] [place] [address] 09735 Neutrophils/100 WBC (Bld) 79.0 % High 47.0-73.0 [facility] Comment on above: Performed By: #### B MP, FT4, TIBCFE, TSH, B12, TOI #### [facility] [address] [place] [address] 64545 NUCLEATED RED BLOOD CELL 0.0 % Normal 0.0-0.0 [facility] Comment on above: Performed By: #### B MP, FT4, TIBCFE, TSH, B12, TOI #### [facility] [address] [place] [address] 05568 NUCLEATED RED BLOOD CELL 0.0 10*3/uL Normal 0.0-0.0 [facility] Comment on above: Performed By: #### B MP, FT4, TIBCFE, TSH, B12, TOI #### [facility] [address] [place] [address] 34364 PLATELET COUNT AUTOMATED 197 10*3/uL Normal 130-400 [facility] Comment on above: Performed By: #### B MP, FT4, TIBCFE, TSH, B12, TOI #### [facility] [address] [place] [address] Platelet mean volume (Bld) [Entitic vol] 9.6 fL Normal 9.6-12.3 [facility] [place] Comment on above: Performed By: #### B MP, FT4, TIBCFE, TSH, B12, TOI #### [facility] [address] [place] [address] RBC (Bld) [#/Vol] 4.15 10*6/uL Normal 4.10-5.10 [facility] Comment on above: Performed By: #### B MP, FT4, TIBCFE, TSH, B12, TOI #### [facility] [address] [place] [address] RED CELL DISTRI WIDTH 13.5 % Normal 0-14.5 [facility] Comment on above: Performed By: #### B MP, FT4, TIBCFE, TSH, B12, TOI #### [facility] [address] [place] [address] WBC (Bld) [#/Vol] 12.8 10*3/uL High 4.8-10.8 [facility] Comment on above: Performed By: #### B MP, FT4, TIBCFE, TSH, B12, TOI #### [facility] [address] [place] [address] CHEST (2 V)on 12-21-2018 [id number] Name: ROSA LANDERS Phys: MAGANA SOLEDAD VILLALBA : 1940 Age: 78 Sex: F Acct: [id number] Loc: 502 1 Exam Date: 12/21/2018 Status: ADM IN Radiology No: [id number] Unit No: [id number] EXAM# TYPE/EXAM RESULT [id number] CRRAD/CHEST (2 V) SEE REPORT INDICATION: Chronic obstructive pulmonary disease. Cough. Shortness of breath. TECHNIQUE: Frontal and lateral chest. COMPARISON: 10/13/12 XR. FINDINGS: The cardiomediastinal silhouette is normal in size. The lungs are hyperinflated consistent with COPD and emphysema. There are increased interstitial infiltrates in both lung apices. These were seen in 2013 and most likely represent apical interstitial fibrosis. There is no consolidation or atelectasis in either lung. There are no pleural effusions. There is no pneumothorax. No acute osseous process. IMPRESSION: Findings most consistent with COPD and fibrosis. No definite consolidating infiltrates or effusions. Signed by Mario Bhatia MD REPORT SIGNED IN OTHER VENDOR SYSTEM 12/21/2018 Reported By: MARIO BHATIA MD CC: JERRY GIBSON MD Technologist: ORLANDO LAGOS Transcribed Date/Time: 12/21/2018 (8808) Jacket Changer: SRI Printed Date/Time: 12/21/2018 (9268) PAGE 1 Signed Report Normal [facility] COMPREHENSIVE METABOLIC PANE Kamaljit 12-21-2018 Albumin [Mass/Vol] 3.9 gm/dl Normal 3.1-4.5 [facility] Comment on above: Performed By: #### B MP, FT4, TIBCFE, TSH, B12, TOI #### [facility] [address] [place] [address] ALP [Catalytic activity/Vol] 107 U/L Normal 45-117 [facility] Comment on above: Performed By: #### B MP, FT4, TIBCFE, TSH, B12, TOI #### [facility] [address] [place] [address] ALT [Catalytic activity/Vol] 27 U/L Normal 12-78 [facility] Comment on above: Performed By: #### B MP, FT4, TIBCFE, TSH, B12, TOI #### [facility] [address] [place] [address] Bilirubin [Mass/Vol] 1.0 mg/dL Normal 0.2-1.0 [facility] Comment on above: Performed By: #### B MP, FT4, TIBCFE, TSH, B12, TOI #### [facility] [address] [place] [address] Calcium [Mass/Vol] 9.2 mg/dL Normal 8.5-10.5 [facility] Comment on above: Performed By: #### B MP, FT4, TIBCFE, TSH, B12, TOI #### [facility] [address] [place] [address] Chloride [Moles/Vol] 100 mmol/L Normal 98-107 [facility] Comment on above: Performed By: #### B MP, FT4, TIBCFE, TSH, B12, TOI #### [facility] [address] [place] [address] CO2 [Moles/Vol] 27 mmol/L Normal 21-32 [facility] Comment on above: Performed By: #### B MP, FT4, TIBCFE, TSH, B12, TOI #### [facility] [address] [place] [address] Creatinine [Mass/Vol] 1.07 mg/dL High 0.55-1.02 [facility] Comment on above: Performed By: #### B MP, FT4, TIBCFE, TSH, B12, TOI #### [facility] [address] [place] [address] EST GLOM FILT > 60 Normal [facility] Comment on above: Result Comment: Result Units: mL/min/1.73 m2 Note: Persistent reduction for 3 months or more of an eGFR of <60 ml/min/1.73 m2 defines Chronic Kidney Disease (CKD). Patients with eGFR values greater than or equal to 60 ml/min/1.73 m2 may also have CKD if evidence of persistent proteinuria is present. STAGES OF CKD eGFR Stage 1 Kidney damage with normal kidney function >=90 Stage 2 Kidney damage with mild loss of kidney function 89-60 Stage 3a Mild to moderate loss of kidney function 59-44 Stage 3b Moderate to severe loss of kidney function 43-30 Stage 4 Severe loss of kidney function 29-15 Stage 5 Kidney failure < 15 . Performed By: #### B MP, FT4, TIBCFE, TSH, B12, TOI #### [facility] [address] [place] [address] ESTIMATED GLOM FILT RATE 50 mL/min/ Low [facility] Comment on above: Performed By: #### B MP, FT4, TIBCFE, TSH, B12, TOI #### [facility] [address] [place] [address] Glucose [Mass/Vol] 119 mg/dL High 65-99 [facility] Comment on above: Performed By: #### B MP, FT4, TIBCFE, TSH, B12, TOI #### [facility] [address] [place] [address] Potassium [Moles/Vol] 3.9 mmol/L Normal 3.5-5.1 [facility] Comment on above: Performed By: #### B MP, FT4, TIBCFE, TSH, B12, TOI #### [facility] [address] [place] [address] Protein [Mass/Vol] 8.7 g/dL High 6.4-8.2 [facility] Comment on above: Performed By: #### B MP, FT4, TIBCFE, TSH, B12, TOI #### [facility] [address] [place] [address] SGOT/AST 25 IU/L Normal 3-35 [facility] Comment on above: Performed By: #### B MP, FT4, TIBCFE, TSH, B12, TOI #### [facility] [address] [place] [address] Sodium [Moles/Vol] 134 mmol/L Low 136-145 [facility] Comment on above: Performed By: #### B MP, FT4, TIBCFE, TSH, B12, TOI #### [facility] [address] [place] [address] Urea nitrogen [Mass/Vol] 16 mg/dL Normal 7-24 [facility] Comment on above: Performed By: #### B MP, FT4, TIBCFE, TSH, B12, TOI #### [facility] [address] [place] [address] ELECTROCARDIOGRAM REPORTon 1 Genetic Technologist Report [place], [place] ELECTROCARDIOGRAM REPORT NAME: ROSA LANDERS UNIT #: [id number] ROOM: [facility] DOCTOR: RIC DRAFT REPORT BIRTHDATE: [address] [facility] Test Date: 2018-12-21 Test Time: 14:33:41 Pat Name: ROSA LANDERS Department: Room: [facility] 1 Gender: F Chief Executive Or Managing Director: : 1940 Requested By: SOLEDAD MAGANA Order Number: [id number] Reading MD: Alexandrea Galicia MD Measurements Intervals [place] Rate: 76 P: 90 [place]: 184 QRS: 84 QRSD: 81 T: 63 QT: 426 QTc: 480 Interpretive Statements Sinus rhythm Borderline right axis deviation Baseline wander in lead(s) II No previous ECG available for comparison Electronically Signed On 12-22-2018 15:47:37 PDT by Alexandrea Galicia MD CM:EKGRPT:ELECTROCARDI OGRAM REPORT [id number] SOLEDAD MAGANA DO EPIPHANY DRAFT REPORT SOLEDAD MAGANA DO Normal [facility] LACTIC ACID BASELINEon 12-21 LACTIC ACID BASELINE 1.5 mmol/L Normal 0.4-2.0 [facility] Comment on above: Performed By: #### B MP, FT4, TIBCFE, TSH, B12, TOI #### [facility] [address] [place] [address] RAPID INFLUENZA A/Bon 2018 RAPID INFLUENZA A/B Negative Normal [facility] Comment on above: Performed By: #### B MP, FT4, TIBCFE, TSH, B12, TIO #### [facility] [address] [place] [address] TROPONIN Ion 12-21-2018 Troponin I.cardiac [Mass/Vol] ng/mL Normal <0.045 [facility] Comment on above: Result Comment: myocardial injury. Clinical correlation required. >0.045 Troponin I interpretation: Troponin I present. Diagnostic possibilities include, but are not limited to, unstable angina, micro myocardial injury, early myocardial injury, cardiomyopathy or myocardial infarct. Clinical correlation required. Troponin I testing performed on a Siemens Dimension [place] analyzer which has a coefficient varient of <10 percent at the 99th percentile as recommended by 2014 AHA NSTE-ACS guidelines and the third universal definition of [place]. The 2012 Third [place] Definition of [place] defines a positive troponin as an elevation of the troponin I value above the 99th percentile of normal. Troponin I is the preferred biomarker overall and the only biomarker assessed for Chest Pain Accreditation purposes. Troponin I testing should be measured at presentation, and 3-6 hours after symptom onset in all patients presenting with ACS symptoms to identify a rising and/or falling pattern. Performed By: #### B MP, FT4, TIBCFE, TSH, B12, TOI #### [facility] [address] [place] [address] HIP LEFT (2-3V)on 12-01-2018 [id number] Name: ROSA LANDERS Phys: KATHRYN RUSSELL MD : 1940 Age: 78 Sex: F Acct: [id number] Loc: LAB Exam Date: 11/29/2018 Status: REG CLI Radiology No: [id number] Unit No: [id number] EXAM# TYPE/EXAM RESULT [id number] CRRAD/HIP LEFT (2-3V) SEE REPORT INDICATION: Left hip and pelvic pain with difficulty walking. TECHNIQUE: Two views of the left hip. COMPARISON: 10/20/2018 XR. FINDINGS: There is no injury. The alignment is anatomic. Bony structures of the left hip are intact. There is end-stage osteonecrosis, osteoarthritis of the left hip. There is total loss of the primary hip joint space. There is sclerosis and cystic necrosis of the acetabulum and the head of the left femur. The acetabular margin is also effaced, enlarged No soft tissue abnormality is seen. IMPRESSION: End-stage osteoarthritis osteonecrosis left hip . Signed by Meryl Alfredo MD REPORT SIGNED IN OTHER VENDOR SYSTEM 12/01/2018 Reported By: MERYL ALFREDO CC: JERRY GIBSON MD Technologist: ROSELINE PEGUERO Transcribed Date/Time: 12/01/2018 (2420) Jacket Changer: SRI Printed Date/Time: 12/01/2018 (3418) PAGE 1 Signed Report Normal [facility] HIP RIGHT (2-3V)on 9 [id number] Name: ROSA LANDERS Phys: KATHRYN RUSSELL MD : 1940 Age: 78 Sex: F Acct: [id number] Loc: LAB Exam Date: 11/29/2018 Status: REG CLI Radiology No: [id number] Unit No: [id number] EXAM# TYPE/EXAM RESULT [id number] CRRAD/HIP RIGHT (2-3V) SEE REPORT INDICATION: Bilateral hip and pelvic pain with difficulty walking, no known injury. TECHNIQUE: AP view of the pelvis and two views of the right hip. COMPARISON: 10/20/2018 XR. FINDINGS: Pelvis: The pelvic ring is intact. There is no acute fracture. The sacroiliac joints, hip joints and symphysis pubis are normally articulated. The pelvic soft tissues are obscured by significant constipation. Right hip: There is no injury. The alignment is anatomic. The bony structures of the right hip are intact. There is normal articulation at the acetabulum. The acetabular margin is effaced, enlarged and sclerotic. There is loss, narrowing of the primary hip joint space. There is early subchondral degenerative bone disease head of the right femur. No soft tissue abnormality is seen. IMPRESSION: The bony pelvis is normal. Right hip shows no evidence of injury. There is moderately advanced osteoarthritis . PAGE 1 Signed Report (CONTINUED) Name: ROSA LANDERS Phys: KATHRYN RUSSELL MD : 1940 Age: 78 Sex: F Acct: [id number] Loc: LAB Exam Date: 11/29/2018 Status: REG CLI Radiology No: [id number] Unit No: [id number] EXAM# TYPE/EXAM RESULT [id number] CRRAD/HIP RIGHT (2-3V) SEE REPORT Signed by Meryl Alfredo MD REPORT SIGNED IN OTHER VENDOR SYSTEM 12/01/2018 Reported By: MERYL ALFREDO CC: JERRY GIBSON MD Technologist: ROSELINE PEGUERO Transcribed Date/Time: 12/01/2018 (1319) Jacket Changer: SRI Printed Date/Time: 12/01/2018 (5553) PAGE 2 Signed Report Normal [facility] US RENALon 11-30-2018 USREN Name: ROSA LANDERS Phys: DREW ANTHONY,KATHRYN : 1940 Age: 78 Sex: F Acct: [id number] Loc: LAB Exam Date: 11/29/2018 Status: REG CLI Radiology No: [id number] Unit No: [id number] EXAM# TYPE/EXAM RESULT [id number] US/US RENAL SEE REPORT INDICATION: CKD TECHNIQUE: Ultrasound of the bladder and kidneys was obtained. COMPARISON: None. Correlation: CT 08/22/2012 FINDINGS: The urinary bladder is anechoic and without masses or wall thickening. Ureteral jets are visualized. The right kidney measures approximately 10.8 x 3.5 x 5.0 cm. The left kidney measures approximately 10.6 x 6.4 x 5.0 cm. The kidneys are of normal echogenicity without masses, hydronephrosis, calculi, or perinephric fluid collections. There is a benign-appearing 2.6 x 3.1 x 2.7 cm cyst of the cortex of the left kidney. IMPRESSION: Benign cyst of the left kidney. Otherwise, normal renal sonogram. Signed by Lillian Bahena REPORT SIGNED IN OTHER VENDOR SYSTEM 11/30/2018 Reported By: LILLIAN BAHENA MD CC: JERRY GIBSON MD Technologist: KRISTINE BERNARD Transcribed Date/Time: 11/30/2018 (833) Jacket Changer: SRI Printed Date/Time: 11/30/2018 (833) PAGE 1 Signed Report Normal [facility] PHOSPHOROUSon 11-29-2018 PHOSPHOROUS 3.3 mg/dL Normal 2.5-4.9 [facility] Comment on above: Performed By: #### P HOS, PTH, VITD #### [facility] [address] [place] [address] PTH INTACTon 11-29-2018 PTH INTACT 41.5 pg/mL Normal 18.5-88.0 [facility] Comment on above: Performed By: #### P HOS, PTH, VITD #### [facility] [address] [place] [address] VITAMIN D, 25-HYDROXYon VITAMIN D, 25-HYDROXY 13.5 ng/mL Low 30-100 [facility] Comment on above: Result Comment: < 20 ng/mL - Vitamin D Deficiency 20 - 30 ng/mL - Vitamin D Insufficiency 30 - 100 ng/mL - Vitamin D sufficiency > 100 ng/mL - Vitamin D Toxicity Performed By: #### P HOS, PTH, VITD #### [facility] [address] [place] [address] HIPS BILATERAL (2V)on 2018 [id number] Name: ROSA LANDERS Phys: JERRY GIBSON MD : 1940 Age: 78 Sex: F Acct: [id number] Loc: LAB Exam Date: 10/20/2018 Status: REG CLI Radiology No: [id number] Unit No: [id number] EXAM# TYPE/EXAM RESULT [id number] CRRAD/HIPS BILATERAL (2V) SEE REPORT INDICATION: Bilateral hip pain for years. TECHNIQUE: Two views of the left hip and two views of the right hip. COMPARISON: 03/26/2016 XR Hip. FINDINGS: Left hip: There is subchondral sclerosis and subchondral cyst formation. There is osteophytosis of the acetabulum and femoral head. Findings consistent with severe osteoarthritis. There is no displaced fracture. The alignment is anatomic. No soft tissue abnormality is seen. Right hip: There is subchondral sclerosis and subchondral cyst formation. There is osteophytosis of the acetabulum and femoral head. Findings consistent with moderate to severe osteoarthritis. There is no displaced fracture. The alignment is anatomic. No soft tissue abnormality is seen. IMPRESSION: Moderate severe osteoarthritis of the right hip. Severe osteoarthritis of the left hip. Similar findings seen exam of 03/26/2016. PAGE 1 Signed Report (CONTINUED) Name: ROSA LANDERS Phys: JERRY GIBSON MD : 1940 Age: 78 Sex: F Acct: [id number] Loc: LAB Exam Date: 10/20/2018 Status: REG CLI Radiology No: [id number] Unit No: [id number] EXAM# TYPE/EXAM RESULT [id number] CRRAD/HIPS BILATERAL (2V) SEE REPORT Signed by Nael Valencia M.D. REPORT SIGNED IN OTHER VENDOR SYSTEM 10/21/2018 Reported By: NAEL VALENCIA M.D. CC: JERRY GIBSON MD Technologist: ORLANDO LAGOS Transcribed Date/Time: 10/21/2018 (0730) Jacket Changer: SRI Printed Date/Time: 10/21/2018 (0287) PAGE 2 Signed Report Normal [facility] BASIC METABOLIC PANELon 09-23 Calcium [Mass/Vol] 8.9 mg/dL Normal 8.5-10.5 [facility] Comment on above: Performed By: #### B MP, FT4, TIBCFE, TSH, B12, TOI #### [facility] [address] [place] [address] Chloride [Moles/Vol] 103 mmol/L Normal 98-107 [facility] Comment on above: Performed By: #### B MP, FT4, TIBCFE, TSH, B12, TOI #### [facility] [address] [place] [address] CO2 [Moles/Vol] 30 mmol/L Normal 21-32 [facility] Comment on above: Performed By: #### B MP, FT4, TIBCFE, TSH, B12, TOI #### [facility] [address] [place] [address] Creatinine [Mass/Vol] 1.12 mg/dL High 0.55-1.02 [facility] Comment on above: Performed By: #### B MP, FT4, TIBCFE, TSH, B12, TOI #### [facility] [address] [place] [address] EST GLOM FILT 57 ml/min Low [facility] Comment on above: Result Comment: Result Units: mL/min/1.73 m2 Note: Persistent reduction for 3 months or more of an eGFR of <60 ml/min/1.73 m2 defines Chronic Kidney Disease (CKD). Patients with eGFR values greater than or equal to 60 ml/min/1.73 m2 may also have CKD if evidence of persistent proteinuria is present. STAGES OF CKD eGFR Stage 1 Kidney damage with normal kidney function >=90 Stage 2 Kidney damage with mild loss of kidney function 89-60 Stage 3a Mild to moderate loss of kidney function 59-44 Stage 3b Moderate to severe loss of kidney function 43-30 Stage 4 Severe loss of kidney function 29-15 Stage 5 Kidney failure < 15 . Performed By: #### B MP, FT4, TIBCFE, TSH, B12, TOI #### [facility] [address] [place] [address] ESTIMATED GLOM FILT RATE 47 mL/min/ Low [facility] Comment on above: Performed By: #### B MP, FT4, TIBCFE, TSH, B12, TOI #### [facility] [address] [place] [address] Glucose [Mass/Vol] 103 mg/dL High 65-99 [facility] Comment on above: Performed By: #### B MP, FT4, TIBCFE, TSH, B12, TOI #### [facility] [address] [place] [phone] Potassium [Moles/Vol] 4.0 mmol/L Normal 3.5-5.1 [facility] Comment on above: Performed By: #### B MP, FT4, TIBCFE, TSH, B12, TOI #### [facility] [address] [place] [address] Sodium [Moles/Vol] 136 mmol/L Normal 136-145 [facility] Comment on above: Performed By: #### B MP, FT4, TIBCFE, TSH, B12, TOI #### [facility] [address] [place] [address] Urea nitrogen [Mass/Vol] 16 mg/dL Normal 7-24 [facility] Comment on above: Performed By: #### B MP, FT4, TIBCFE, TSH, B12, TOI #### [facility] [address] [place] [id number] FERRITINon 10-20-2018 Ferritin [Mass/Vol] 90.6 ng/mL Normal 10.0-291.0 [facility] Comment on above: Performed By: #### B MP, FT4, TIBCFE, TSH, B12, TOI #### [facility] [address] [place] [address] FREE T4on 10-20-2018 Free T4 [Mass/Vol] 1.19 ng/dL Normal 0.76-1.46 [facility] Comment on above: Performed By: #### B MP, FT4, TIBCFE, TSH, B12, TOI #### [facility] [address] [place] [address] THYROID STIM HORMONE (HS)on 10-20-2018 THYROID STIM HORMONE (HS) 4.870 uIU/ml High 0.358-4.75 [facility] Comment on above: Performed By: #### B MP, FT4, TIBCFE, TSH, B12, TOI #### [facility] [address] [place] [address] TOTAL IRON BINDING CAPACITYo n 10-20-2018 Iron [Mass/Vol] 68 ug/dL Normal 50-170 [facility] Comment on above: Performed By: #### B MP, FT4, TIBCFE, TSH, B12, TOI #### [facility] [address] [place] [id number] IRON SATURATION 22 % Normal [facility] Comment on above: Performed By: #### B MP, FT4, TIBCFE, TSH, B12, TOI #### [facility] [address] [place] [address] TOTAL IRON BINDING CAPACITY 308 ug/dl Normal 250-450 [facility] Comment on above: Performed By: #### B MP, FT4, TIBCFE, TSH, B12, TOI #### [facility] [address] [place] [address] UIBC 240 ug/dL Normal 110-365 [facility] Comment on above: Performed By: #### B MP, FT4, TIBCFE, TSH, B12, TOI #### [facility] [address] [place] [address] VITAMIN B12on 10-20-2018 Cobalamin (Vitamin B12) [Mass/Vol] 356 pg/mL Normal 247-911 [facility] Comment on above: Result Comment: 120 - 466 pg/mL - Normal, Vitamin B12 Sufficiency Performed By: #### B MP, FT4, TIBCFE, TSH, B12, TOI #### [facility] [address] [place] [address] Vital Signs Date Time Vital Sign Value Performing Clinician Facility 10-11-2024 09:26-0400 Body temperature 97.5 [degF] Dr. Edy Salomon DO Work Phone: [facility] 10-11-2024 09:26-0400 Diastolic blood pressure 51 mm[Hg] Dr. Edy Salomon DO Work Phone: [facility] 10-11-2024 09:26-0400 Heart rate 62 /min Dr. Edy Salomon DO Work Phone: [facility] 10-11-2024 09:26-0400 Respiratory rate 18 /min Dr. Edy Salomon DO Work Phone: [facility] 10-11-2024 09:26-0400 Systolic blood pressure 124 mm[Hg] Dr. Edy Salomon DO Work Phone: [facility] 02-28-2023 11:25-0500 Heart rate 79 /min ROBERT SANDS MD [facility] 02-28-2023 11:04-0500 Heart rate 79 /min ROBERT SANDS MD [facility] 02-28-2023 11:04-0500 Respiratory rate 20 /min ROBERT SANDS MD [facility] 02-28-2023 07:58-0500 Heart rate 102 /min ROBERT SANDS MD [facility] 02-28-2023 07:28-0500 Body temperature 98.6 [degF] ROBERT SANDS MD [facility] 02-28-2023 07:28-0500 Diastolic Blood Pressure Non-Invasive 56 mm[Hg] ROBERT SANDS MD [facility] 02-28-2023 07:28-0500 Heart rate 99 /min ROBERT SANDS MD [facility] 02-28-2023 07:28-0500 Mean blood pressure 77 mm[Hg] ROBERT SANDS MD [facility] 02-28-2023 07:28-0500 Reason For Taking VItal Signs ROBERT SANDS MD [facility] 02-28-2023 07:28-0500 Respiratory rate 16 /min ROBERT SANDS MD [facility] 02-28-2023 07:28-0500 Systolic Blood Pressure Non-Invasive 130 mm[Hg] ROBERT SANDS MD [facility] 02-28-2023 07:11-0500 Heart rate 71 /min ROBERT SANDS MD [facility] 02-28-2023 07:11-0500 Respiratory rate 16 /min ROBERT SANDS MD [facility] 02-28-2023 03:37-0500 Body temperature 99.5 [degF] ROBERT SANDS MD [facility] 02-28-2023 03:37-0500 Diastolic Blood Pressure Non-Invasive 70 mm[Hg] ROBERT SANDS MD [facility] 02-28-2023 03:37-0500 Mean blood pressure 91 mm[Hg] ROBERT SANDS MD [facility] 02-28-2023 03:37-0500 Reason For Taking VItal Signs ROBERT SANDS MD [facility] 02-28-2023 03:37-0500 Systolic Blood Pressure Non-Invasive 156 mm[Hg] ROBERT SANDS MD [facility] 02-27-2023 22:25-0500 Body temperature 98.42 [degF] ROBERT SANDS MD [facility] 02-27-2023 22:25-0500 Diastolic Blood Pressure Non-Invasive 60 mm[Hg] ROBERT SANDS MD [facility] 02-27-2023 22:25-0500 Mean blood pressure 74 mm[Hg] ROBERT SANDS MD [facility] 02-27-2023 22:25-0500 Systolic Blood Pressure Non-Invasive 118 mm[Hg] ROBERT SANDS MD [facility] 02-27-2023 19:08-0500 Heart rate 79 /min ROBERT SANDS MD [facility] 02-27-2023 18:39-0500 Reason For Taking VItal Signs ROBERT SANDS MD [facility] 02-27-2023 10:53-0500 Blood Pressure Cuff Size ROBERT SANDS MD [facility] 02-27-2023 10:53-0500 Blood Pressure Location ROBERT SANDS MD [facility] 02-27-2023 10:53-0500 Blood Pressure Method ROBERT SANDS MD [facility] 02-26-2023 12:30-0500 Diastolic blood pressure 83 mm[Hg] ROBERT SANDS MD [facility] 02-26-2023 12:30-0500 Mean blood pressure 115 mm[Hg] ROBERT SANDS MD [facility] 02-26-2023 12:30-0500 Systolic blood pressure 163 mm[Hg] ROBERT SANDS MD [facility] 02-26-2023 12:00-0500 Diastolic blood pressure 76 mm[Hg] ROBERT SANDS MD [facility] 02-26-2023 12:00-0500 Mean blood pressure 109 mm[Hg] ROBERT SANDS MD [facility] 02-26-2023 12:00-0500 Systolic blood pressure 162 mm[Hg] ROBERT SANDS MD [facility] 02-26-2023 11:45-0500 Diastolic blood pressure 69 mm[Hg] ROBERT SANDS MD [facility] 02-26-2023 11:45-0500 Mean blood pressure 105 mm[Hg] ROBERT SANDS MD [facility] 02-26-2023 11:45-0500 Systolic blood pressure 158 mm[Hg] ROBERT SANDS MD [facility] 02-24-2023 23:00-0500 Body temperature 97.52 [degF] ROBERT SANDS MD [facility] 02-24-2023 22:04-0500 Body temperature 97.88 [degF] ROBERT SANDS MD [facility] 02-24-2023 15:50-0500 Respiratory Rate - Anes 5 br/min ROBERT SANDS MD [facility] 02-24-2023 15:45-0500 Respiratory Rate - Anes 18 br/min ROBERT SANDS MD [facility] 02-24-2023 15:40-0500 Respiratory Rate - Anes 19 br/min ROBERT SANDS MD [facility] 02-24-2023 15:15-0500 Body temperature 96.57 [degF] ROBERT SANDS MD [facility] 02-24-2023 15:10-0500 Body temperature 96.66 [degF] ROBERT SANDS MD [facility] 02-24-2023 15:05-0500 Body temperature 96.76 [degF] ROBERT SANDS MD [facility] 02-24-2023 10:16-0500 Body weight 23.07 kg/m2 ROBERT SANDS MD [facility] 02-24-2023 10:05-0500 Body height 162.6 cm ROBERT SANDS MD [facility] 02-24-2023 10:05-0500 Body weight 61 kg ROBERT SANDS MD [facility] 02-24-2023 10:05-0500 Body weight 23.07 kg/m2 ROBERT SANDS MD [facility] 02-22-2023 12:49-0500 Blood Pressure Cuff Size ROBERT SANDS MD [facility] 02-22-2023 12:49-0500 Blood Pressure Location ROBERT SANDS MD [facility] 02-22-2023 12:49-0500 Blood Pressure Method ROBERT SANDS MD [facility] 02-22-2023 12:49-0500 Body height 162.6 cm ROBERT SANDS MD [facility] 02-22-2023 12:49-0500 Body temperature 98.06 [degF] ROBERT SANDS MD [facility] 02-22-2023 12:49-0500 Body weight 63.9 kg ROBERT SANDS MD [facility] 02-22-2023 12:49-0500 Diastolic Blood Pressure Non-Invasive 69 mm[Hg] ROBERT SANDS MD [facility] 02-22-2023 12:49-0500 Heart rate 55 /min ROBERT SANDS MD [facility] 02-22-2023 12:49-0500 Systolic Blood Pressure Non-Invasive 149 mm[Hg] ROBERT SANDS MD [facility] 12-22-2018 02:32-0400 Body temperature 98.8 [degF] [facility] Comment on above: Order Comment: ROOM AIR? NFIO2 % and/or LITER FLOW: 5LTEMP: 98.8IS THE PATIENT BEING MECHANICALLY VENTILATED? N Performed By: #### B MP, FT4, TIBCFE, TSH, B12, TOI #### [facility] [address] [place] [address] Encounters Encounter Date Encounter Type Care Provider Facility Start: 12-11-2024 End: 12-11-[address] EDY SALOMON DO Facility:[facility] Start: 12-11-2024 End: 12-11-[address] LONNIE JAVIER MD [facility] Start: 10-30-2024 Encounter for other preprocedural examination Camron Shahla [facility] Start: 10-29-2024 ambulatory Edy Salomon Facility:[facility] Start: 10-26-2024 End: 10-26-2024 ambulatory ROBERT SANDS MD Facility:[facility] Start: 10-26-2024 End: 10-26-2024 Patient encounter procedure ROBERT SANDS MD [facility] Start: 10-23-2024 ambulatory IGGY PERLA PRODUCT MARKETING MANAGER-DESTINATION SPECIALIST F acility:[facility] Start: 10-11-2024 ambulatory Edy Salomon Facility:[facility] Start: 10-11-2024 Non-patient / Non-visit Dr. Yareli Gunderson MD -[facility] Work Phone: Start: 10-11-2024 End: 10-18-[address] [facility] Work Phone: Start: 10-11-2024 End: 10-18-[address] Edy Salomon DO Work Phone: [facility] Start: 09-29-2024 End: 10-20-[address] EDY SALOMON DO Facility:[facility] Start: 09-25-2024 End: 09-25-[address] EDY SALOMON DO Facility:[facility] Start: 09-25-2024 End: 09-25-[address] EDY SALOMON DO [facility] Start: 09-13-2024 End: 09-13-[address] EDY SALOMON DO Facility:[facility] Start: 09-13-2024 End: 09-13-[address] EDY SALOMON DO [facility] Start: 09-04-2024 End: 09-04-2024 Emergency department patient visit IZA SHAISTA DO [facility] Start: 09-04-2024 End: 09-04-[address] EDY SALOMON DO Facility:[facility] Start: 09-04-2024 End: 09-04-[address] EDY SALOMON DO [facility] Start: 08-29-2024 End: 08-29-[address] EDY SALOMON DO Facility:[facility] Start: 08-29-2024 End: 08-29-[address] EDY SALOMON DO [facility] Start: 02-13-2024 End: 02-13-[address] EDY SALOMON DO Facility:[facility] Start: 02-13-2024 End: 02-13-[address] EDY SALOMON DO [facility] Start: 12-23-2023 End: 12-23-[address] EDY SALOMON DO Facility:[facility] Start: 12-23-2023 End: 12-23-[address] EDY SALOMON DO [facility] Start: 09-13-2023 End: 09-13-2023 ambulatory IGGY DUNCAN PRODUCT MARKETING MANAGER-DESTINATION SPECIALIST Facility:[facility] Start: 09-13-2023 End: 09-13-2023 Patient encounter procedure IGGY DUNCAN PRODUCT MARKETING MANAGER-DESTINATION SPECIALIST [facility] Start: 06-02-2023 ambulatory STEVEN ARREDONDO PRODUCT MARKETING MANAGER-DESTINATION SPECIALIST Facility:[facility] Start: 06-02-2023 End: 06-06-2023 Outreach Lab STEVEN ARREDONDO PRODUCT MARKETING MANAGER-DESTINATION SPECIALIST [facility] Start: 04-15-2023 End: 04-15-[address] EDY SALOMON DO Facility:[facility] Start: 04-15-2023 End: 04-15-[address] EDY SALOMON DO [facility] Start: 03-02-2023 End: 04-13-[address] EDY SALOMON DO Facility:[facility] Start: 02-24-2023 End: 02-28-2023 Evaluation and management of inpatient ROBERT SANDS MD [facility] Start: 02-22-2023 End: 02-22-2023 Admission to establishment ROBERT SANDS MD [facility] Start: 02-22-2023 End: 02-22-2023 ambulatory ROBERT SANDS MD Facility:[facility] Start: 01-18-2023 End: 01-18-2023 ambulatory IGGY DUNCAN PRODUCT MARKETING MANAGER-DESTINATION SPECIALIST Facility:[facility] Start: 01-18-2023 End: 01-18-2023 Patient encounter procedure IGGY DUNCAN PRODUCT MARKETING MANAGER-DESTINATION SPECIALIST [facility] Start: 08-26-2022 End: 08-26-2022 ambulatory [facility] Work Phone: Start: 08-26-2022 End: 08-26-2022 Patient encounter procedure [facility], [facility] Work Phone: Start: 08-25-2022 End: 08-25-2022 Patient encounter procedure ROBERT SANDS MD [facility] Start: 03-16-2022 End: 03-16-[address] EDY SALOMON DO [facility] Start: 10-07-2021 End: 10-07-[address] EDY SALOMON DO [facility] Start: 06-26-2021 End: 06-26-2021 Patient encounter procedure ROBERT SANDS MD [facility] Start: 01-22-2021 End: 01-26-[address] EDY SALOMON DO [facility] Procedures Date Procedure Procedure Detail Performing Clinician Start: 02-24-2023 Abdominal aortic ane urysm (disorder) DR EDY SALOMON DO Start: 08-26-2022 Computed tomography angiography of abdominal and/or pelvic blood vessel Start: 03-26-[address] EDY SALOMON DO Start: 02-22-[address] EDY RODRIGUEZ DO Start: 02-22-2008 Specimen from breast obtained by biopsy (specimen) DR EDY SALOMON DO Comment on above: left Bronchoscopy DR EDY Ng O Thyroidectomy DR EDY SALOMON DO Immunizations Immunization Date Immunization Notes Care Provider Fa cili 12-23-2023 influenza, high dose seasonal, preservative-free; Translations: [Fluad PF Prefilled Syringe ] DR EDY SALOMON DO [facility] 03-16-2023 influenza, high dose seasonal, preservative-free; Translations: [Fluad Quadrivalent PF ] DR EDY SALOMON DO [facility] 02-26-2021 COVID-19, mRNA, LNP- S, PF, 100 mcg or 50 mcg dose; Translations: [Moderna COVID-19 Vaccine] ROBERT SANDS MD [facility] 02-26-2021 influenza, high dose seasonal, preservative-free; Translations: [Fluad Quadrivalent PF ] ROBERT SANDS MD [facility] 06-30-2020 SARS-CoV-2 (COVID-19 ) mRNA-[address] EDY SALOMON DO [facility] Comment on above: Result Comment: 2022: [id number] 06-02-2020 SARS-CoV-2 (COVID-19 ) mRNA-[address] EDY SALOMON DO [facility] Comment on above: Result Comment: 2020: [id number] 02-01-2019 tetanus toxoid, redu kelsey diphtheria toxoid, and acellular pertussis vaccine, adsorbed; Translations: [Boostrix (Tdap)] DR EDY SALOMON DO [facility] 01-10-2019 pneumococcal conjuga te vaccine, [address] EDY SALOMON DO [facility] 11-21-2018 influenza virus vacc ine, unspecified formulation DR EDY SALOMON DO [facility] 11-21-2018 pneumococcal conjuga te vaccine, [address] EDY SALOMON DO [facility] 11-20-2018 influenza virus vacc ine, unspecified formulation DR EDY SALOMON DO [facility] 11-20-2018 pneumococcal conjuga te vaccine, [address] EDY SALOMON DO [facility] 10-31-2012 pneumococcal polysaccharide vaccine, [address] EDY SALOMON DO [facility] 12-06-2007 influenza virus vacc ine, unspecified formulation DR EDY SALOMON DO [facility] Payers Date Payer Category Payer Self-pay [id number] 08-29-2024 Private Health Insurance [id number] 04-06-2023 [employer] ( and others) [id number] 07-22-2022 [employer] ( and others) [id number] 07-22-2022 Medicare [id number] 07-22-2022 Medicare [id number] 06-11-2021 [employer] ( and others) [id number] 1940 Unknown [id number] 2.16.840.1.026117.3.579.2. 1940 Unknown [id number] 2.16.840.1.182100.3.579.2. 1940 Unknown [id number] 2.16.840.1.390532.3.579.2. 1940 Unknown [id number] 2.16.840.1.639282.3.579.2. 1941 Unknown [id number] 2.16.840.1.348283.3.579.2. 1941 Unknown [id number] 2.16.840.1.544563.3.579.2. 1941 Unknown [id number] 2.16.840.1.336149.3.579.2. 1941 Unknown [id number] 2.16.840.1.345804.3.579.2. 1941 Unknown [id number] 2.16.840.1.781574.3.579.2. 1941 Unknown [id number] 2.16.840.1.224444.3.579.2 1941 Unknown [id number] 2.16.840.1.962366.3.579.2. 1941 Unknown [id number] 2.16.840.1.792401.3.579.2.627 1941 Unknown [id number] 2.16.840.1.540791.3.579.2.627 1941 Unknown [id number] 2.16.840.1.265760.3.579.2.627 1941 Unknown [id number] 2.16.840.1.312820.3.579.2.627 1941 Unknown [id number] 2.16.840.1.076273.3.579.2.627 Unknown [id number] 2.16.840.1.966780.3.579.2.462 Unknown [id number] 2.16.840.1.486815.3.579.2.462 Unknown [id number] 2.16.840.1.319621.3.579.2.462 Social History Date Type Detail Facility Tobacco Nicotine Use: Va ping Product in Last 90 Days. Type: Electronic Cigarettes (Vaping). [facility] Start: 1940 Sex Assigned At Female A [facility] Tobacco smoking status [facility] Start: 02-19-2019 [facility] Start: 02-19-2019 None [facility] Start: 02-19-2019 With Family;- [facility] Start: 06-22-2019 Cigarettes [facility] Start: 02-22-2019 Sex Female (finding) [facility] Start: 10-11-2024 [facility] Functional Status Date Assessment Result Facility 02-28-2023 Functional Status Sequential Com pression Device bilateral knee high applied/on [facility] 02-28-2023 Functional Status Supervision [facility] 02-28-2023 Functional Status Door open, Non-Slip footwear, Room check performed [facility] 02-28-2023 Functional Status [facility] 02-27-2023 Functional Status [facility] 02-27-2023 Functional Status [facility] 02-27-2023 Functional Status Supervised [facility] 02-27-2023 Functional Status Done [facility] 02-26-2023 Functional Status 100 [facility] 02-26-2023 Functional Status [facility] 02-26-2023 Functional Status Foam dressing [facility] 02-26-2023 Functional Status [facility] 02-26-2023 Functional Status [facility] 02-26-2023 Functional Status [facility] 02-25-2023 Functional Status [facility] 02-25-2023 Functional Status [facility] 02-25-2023 Functional Status [facility] 02-25-2023 Functional Status NPO Status Maintained A [facility] 02-25-2023 Functional Status [facility] 02-25-2023 Functional Status [facility] 02-25-2023 Functional Status [facility] 02-24-2023 Functional Status Patient Identified Iden tification band [facility] 02-24-2023 [facility] Functional Status Sensory Deficits None A [facility] Mental Status Date Assessment Result Facility 02-28-2023 Mental Status Oriented x 4 [facility] 02-28-2023 Mental Status [facility] 02-27-2023 Mental Status [facility] 02-26-2023 Mental Status [facility] 02-26-2023 Mental Status [facility] Clinical Notes 01-18-2023 to 10-12-2024 Note Date & Type Note Facility 10-12-2024 History and physi wu note Note Date/Time October 12, 2024 5:50pm [facility] [place] [address] H&P Exam - Wound Care 10/11/24 1023 MR#: [id number] Acct: [id number] Name: ROSA LANDERS #:[id number] : 1940 84 From: Snow castellano MD PCP: Dr. Edy Salomon, DO Status:REG RCR Location: History of Present Illness Date of Service: 10/11/24 Chief Complaint: Bilateral buttock ulcer (healed) History of Wound: Ms. Landers was referred to the wound center by her PCP due to nonhealing bilateral buttock ulcers. Noted a few weeks ago. Thought to be due to an allergic reaction following a switch in adult underwear. Had been using an antifungal powder and another salve which was prescribed by her PCP but shecannot remember the name. At the time of presentation, no open area identified. Feels well otherwise. [facility] Medical History (Updated 10/12/24 @ 17:[address] Snow Gunderson MD) Dermatitis History of decubitus ulcer Home Medications ?Medication ?Instructions ?Recorded ?Last Taken ?Type Cholecalciferol (VIT D3) 400 02/19/19 Unknown History acetaminophen 300 mg-codeine 15 mg 1 ea PO BID 9 Unknown History tablet acetaminophen 500 mg tablet 500 mg PO Q4H PRN PRN Pain Or Fever 02/19/19 Unknown History albuterol sulfate 90 mcg/actuation 2 puff inhalation Q 6H PRN PRN 02/19/19 Unknown History aerosol inhaler Wheezing carvedilol 25 mg tablet 25 mg PO BID 02/19/19 Unknow n History fluticasone furoate 200 02/19/19 Unknown History mcg/actuation blister powder for inhalation gabapentin 400 mg capsule 400 mg PO 02/19/19 Unknown H istory levothyroxine 112 mcg tablet 112 mcg PO DAILY 02/19/19 Unknown History loratadine 10 mg capsule 10 mg PO 02/19/19 Unknown Hi story mirabegron 25 mg tablet,extended 25 mg PO 02/19/19 Unk nown History release 24 hr nicotine 7 mg/24 hr daily 1 ea TD 02/19/19 Unknown His tory transdermal patch omeprazole 20 mg capsule,delayed 20 mg PO DAILY Unknown History release oxycodone-acetaminophen 5 mg-325 PO Q6H PRN PRN Pain O r Fever 02/19/19 Unknown History mg tablet pravastatin 20 mg tablet 20 mg PO QHS 02/19/19 Unknow n History rivaroxaban 20 mg tablet 20 mg PO DAILY 02/19/19 Unkn own History ropinirole 0.5 mg tablet 0.5 mg PO 02/19/19 Unknown H istory furosemide 40 mg tablet 40 mg PO DAILY 02/27/19 Unkn own History Allergy/AdvReac Type Severity Reaction Status Date / Time No Known Allergies Allergy Verified 10/11/24 09:19 Social History Smoking Status: Current every day smoker ROS Constitutional Constitutional: Denies daytime sleepiness, fever(s), headache(s), increased appetite or lethargy Eyes Eyes: Denies change in eye color, discharge from eye(s), discongugate gaze, double vision, erythema or excessive blinking ENT HEENT: Denies foreign body in nose, halitosis, hearing loss, mouth pain, nasal congestion or nasal obstruction Cardiovascular Cardiovascular: Denies claudication, cold extremities, cyanosis, diaphoresis, dizziness or dyspnea at rest Respiratory/Chest Respiratory/Chest: Denies dyspnea, excessive phlegm production, hemoptysis, inability to speak or nail bed cyanosis Gastrointestinal Gastrointestinal: Denies abdominal pain, coffee ground emesis, cramping, dry heaves or excessive flatus Genitourinary Genitourinary: Denies abdominal discomfort, external genitalia discoloration, flank pain, genital lesions or genital pain Musculoskeletal Musculoskeletal: Reports back pain, joint pain and limited range of motion; Denies tingling or tremors Integumentary Integumentary: Reports erythema; Denies hirsutism, jaundice, lesions, non-healing lesions or skin ulcer Neurologic Neurologic: Denies behavior changes, burning sensations, disequilibrium, focal weakness or lack of coordination Psychiatric Psychiatric: Denies auditory hallucinations, behavioral changes, irritability, panic attacks, tactile hallucinations or visual hallucinations Endocrine Endocrinology: Denies change in body appearance, deepening of the voice, excessive sweating, heat intolerance or increase in ring/shoe/hat size Allergic/Immunologic Allergic/Immunologic: Denies itchy eyes, lip swelling, throat swelling, tongue swelling or wheezing Vital Signs Vital Signs Vital Signs: 10/11/24 09:26 Temperature 97.5 F L Temperature Source Temporal Pulse Rate 62 Respiratory Rate 18 Blood Pressure 124/51 H Blood Pressure Mean 75 Blood Pressure Source Monitor Blood Pressure Position Sitting Blood Pressure Location Left Arm Oxygen Delivery Method Room Air Physical Exam Const alert and no apparent distress General Appearance: cooperative and comfortable HEENT normocephalic and head/scalp atraumatic Head and Scalp: normal to inspection Eyes EOMs intact bilaterally General Eye: normal appearance of both eyes Neck full ROM General: normal visual inspection Resp normal respiratory effort Effort and Inspection: able to speak in complete sentences Neuro moves all extremities and no focal motor deficits Psych mental status grossly normal, thought process normal, cooperative and affect normal Debridement Note Debridement Note Post-Debridement Measurements and Additional Note: Post-Debridement Measurements/Treatment - Nurse 1 - General Ulcer Assessment Start: 10/11/24 09:18 Freq: Status: Active Protocol: MARCOS Activity Type Activity Date Activity User E-sign Co-sign Detail Recorded Client Recorded Date Recorded By Document 10/11/24 09:26 DS [id number] 10/11/24 09:31 DS 10/11/24 09:26 - Today's Visit Information Type of service Initial Visit Arrival Mode Ambulatory,Cane Accompanied by daughter Patient Identification Verified (Name & Yes ) Patient Requires Transmission-Based No Precautions Safety Precautions Fall Prevention Vital Signs Temperature (97.8 F-99.1 F) 97.5 F L Temperature Source Temporal Pulse Rate (60-100) 62 Pulse Location Monitor Respiratory Rate (12-18) 18 Respiratory rate source Observation Oxygen Delivery Method Room Air Blood Pressure (90/60-120/80) 124/51 H Blood Pressure Mean 75 Source Monitor Position Sitting Blood Pressure Location Left Arm Pain Scale: 0-10 Numeric Is Patient Pain Free? No left side -Description Aching -Intensity 3 -Duration (hours) Chronic -Pain Behavior No Change in Behavior -Alleviating Factors/Interventions None Communication Assessment Preferred language Indonesian Able to Read Yes Able to Write Yes Communication Tools None Right Hearing Abillity Normal Left Hearing Abillity Normal Visual Assistive Devices Glasses Teaching Assessment Preferences Verbal Barriers to Learning None Readiness To Learn Excellent Willingness to Engage in Self Management High Activies Readiness to Engage in Self Management High Activities Anxiety Level Calm Cooperation Cooperative Perception Coherent Interest in Health Problem Asks Questions Education Importance Acknowledges Need Does Patient Smoke tobacco or other Yes substances Smoking Status Current every day smoker Is Patient Diabetic No Functional Assessment Recent Decline in Ability to Perform Ambulation List Device(s) with Patient cane Culture/Sikh/Parts Specialist Cultural/Sikh Needs that may affect No Treatment Plan Teaching: Wound Center *Welcome to the Wound Center -Person Taught Patient -Teaching Method Discussion -Response to teaching Verbalize Understanding WC - Nurse 2 - General Ulcer CM Notes Start: 10/11/24 09:18 Freq: Status: Active Protocol: Activity Type Activity Date Activity User E-sign Co-sign Detail Recorded Client Recorded Date Recorded By Document 10/11/24 09:56 GM [id number] 10/11/24 09:58 GM 10/11/24 09:56 Pain Scale: 0-10 Numeric Is Patient Pain Free? Yes WC - Nurse 3 - General Ulcer D/C NN Start: 10/11/24 09:18 Freq: Status: Active Protocol: Activity Type Activity Date Activity User E-sign Co-sign Detail Recorded Client Recorded Date Recorded By Document 10/11/24 10:01 GM [id number] 10/11/24 10:01 10/11/24 10:01 Is Patient Pain Free? Yes WC - Visit Discharge Discharge Condition Stable Ambulatory Status Ambulatory,Cane Transportation Private Auto Charges/Coding Visit Charges Office Visits / Consults: 39669 OV L3 New 30min Assessment/Plan Assessment/Plan (1) History of decubitus ulcer: CODE(S): Z87.2 - Personal history of diseases of the skin and subcutaneoustissue (2) Dermatitis: CODE(S): L30.9 - Dermatitis, unspecified PLAN: Plan As above, no open area identified at this time. Evidence of prior dermatitis/possible ulceration. Moisture control and prevention discussed. Offloading discussed. Patient and daughter voiced understanding. There is no open area, no indication for follow-up at the wound center. Continue follow-up with PCP and here as needed. Their questions were answered and they were advised to let us know if he had any further questions or concerns. Discharged from the wound center. This note was generated with [employer] dictation software. It may contain incorrectwords, spelling, and punctuation that were not noted in checking the note beforesigning. 10/12/24 1750 <Electronically signed by Snow Gunderson MD> Cosigner Signature (if applicable): CC: ~ Signed [facility] Work Phone: [phone] History and physical note [facility] [address] [place] [address] H&P Exam - Wound Care 10/11/24 1023 MR#: [id number] Acct: [id number] Name: ROSA LANDERS Rep #:[id number] : 1940 84 From: Snow castellano MD PCP: Dr. Edy Salomon, DO Status:REG RCR Location: History of Present Illness Date of Service: 10/11/24 Chief Complaint: Bilateral buttock ulcer (healed) History of Wound: Ms. Landers was referred to the wound center by her PCP due to nonhealing bilateral buttock ulcers. Noted a few weeks ago. Thought to be due to an allergic reaction following a switch in adult underwear. Had been using an antifungal powder and another salve which was prescribed by her PCP but shecannot remember the name. At the time of presentation, no open area identified. [place] otherwise. [facility] Medical History (Updated 10/12/24 @ 17:[address] Snow Gunderson MD) Dermatitis History of decubitus ulcer Home Medications ?Medication ?Instructions ?Recorded ?Last Taken ?Type Cholecalciferol (VIT D3) 400 02/19/19 Unknown History acetaminophen 300 mg-codeine 15 mg 1 ea PO BID 9 Unknown History tablet acetaminophen 500 mg tablet 500 mg PO Q4H PRN PRN Pain Or Fever 02/19/19 Unknown History albuterol sulfate 90 mcg/actuation 2 puff inhalation Q 6H PRN PRN 02/19/19 Unknown History aerosol inhaler Wheezing carvedilol 25 mg tablet 25 mg PO BID 02/19/19 Unknow n History fluticasone furoate 200 02/19/19 Unknown History mcg/actuation blister powder for inhalation gabapentin 400 mg capsule 400 mg PO 02/19/19 Unknown H istory levothyroxine 112 mcg tablet 112 mcg PO DAILY 02/19/19 Unknown History loratadine 10 mg capsule 10 mg PO 02/19/19 Unknown Hi story mirabegron 25 mg tablet,extended 25 mg PO 02/19/19 Unk nown History release 24 hr nicotine 7 mg/24 hr daily 1 ea TD 02/19/19 Unknown His tory transdermal patch omeprazole 20 mg capsule,delayed 20 mg PO DAILY Unknown History release oxycodone-acetaminophen 5 mg-325 PO Q6H PRN PRN Pain O r Fever 02/19/19 Unknown History mg tablet pravastatin 20 mg tablet 20 mg PO QHS 02/19/19 Unknow n History rivaroxaban 20 mg tablet 20 mg PO DAILY 02/19/19 Unkn own History ropinirole 0.5 mg tablet 0.5 mg PO 02/19/19 Unknown H istory furosemide 40 mg tablet 40 mg PO DAILY 02/27/19 Unkn own History Allergy/AdvReac Type Severity Reaction Status Date / Time No Known Allergies Allergy Verified 10/11/24 09:19 Social History Smoking Status: Current every day smoker ROS Constitutional Constitutional: Denies daytime sleepiness, fever(s), headache(s), increased appetite or lethargy Eyes Eyes: Denies change in eye color, discharge from eye(s), discongugate gaze, double vision, erythemaor excessive blinking ENT HEENT: Denies foreign body in nose, halitosis, hearing loss, mouth pain, nasal congestion or nasal obstruction Cardiovascular Cardiovascular: Denies claudication, cold extremities, cyanosis, diaphoresis, dizziness or dyspnea at rest Respiratory/Chest Respiratory/Chest: Denies dyspnea, excessive phlegm production, hemoptysis, inability to speak or nail bed cyanosis Gastrointestinal Gastrointestinal: Denies abdominal pain, coffee ground emesis, cramping, dry heaves or excessive flatus Genitourinary Genitourinary: Denies abdominal discomfort, external genitalia discoloration, flank pain, genital lesions or genital pain Musculoskeletal Musculoskeletal: Reports back pain, joint pain and limited range of motion; Denies tingling or tremors Integumentary Integumentary: Reports erythema; Denies hirsutism, jaundice, lesions, non- healing lesions or skin ulcer Neurologic Neurologic: Denies behavior changes, burning sensations, disequilibrium, focal weakness or lack of coordination Psychiatric Psychiatric: Denies auditory hallucinations, behavioral changes, irritability, panic attacks, tactile hallucinations or visual hallucinations Endocrine Endocrinology: Denies change in body appearance, deepening of the voice, excessive sweating, heat intolerance or increase in ring/shoe/hat size Allergic/Immunologic Allergic/Immunologic: Denies itchy eyes, lip swelling, throat swelling, tongue swelling or wheezing Vital Signs Vital Signs Vital Signs: 10/11/24 09:26 Temperature 97.5 F L Temperature Source Temporal Pulse Rate 62 Respiratory Rate 18 Blood Pressure 124/51 H Blood Pressure Mean 75 Blood Pressure Source Monitor Blood Pressure Position Sitting Blood Pressure Location Left Arm Oxygen Delivery Method Room Air Physical Exam Const alert and no apparent distress General Appearance: cooperative and comfortable HEENT normocephalic and head/scalp atraumatic Head and Scalp: normal to inspection Eyes EOMs intact bilaterally General Eye: normal appearance of both eyes Neck full ROM General: normal visual inspection Resp normal respiratory effort Effort and Inspection: able to speak in complete sentences Neuro moves all extremities and no focal motor deficits Psych mental status grossly normal, thought process normal, cooperative and affect normal Debridement Note Debridement Note Post-Debridement Measurements and Additional Note: Post-Debridement Measurements/Treatment - Nurse 1 - General Ulcer Assessment Start: 10/11/24 09:18 Freq: Status: Active Protocol: MARCOS Activity Type Activity Date Activity User E-sign Co-sign Detail Recorded Client Recorded Date Recorded By Document 10/11/24 09:26 DS [id number] 10/11/24 09:31 DS 10/11/24 09:26 - Today's Visit Information Type of service Initial Visit Arrival Mode Ambulatory,Cane Accompanied by daughter Patient Identification Verified (Name & Yes ) Patient Requires Transmission-Based No Precautions Safety Precautions Fall Prevention Vital Signs Temperature (97.8 F-99.1 F) 97.5 F L Temperature Source Temporal Pulse Rate (60-100) 62 Pulse Location Monitor Respiratory Rate (12-18) 18 Respiratory rate source Observation Oxygen Delivery Method Room Air Blood Pressure (90/60-120/80) 124/51 H Blood Pressure Mean 75 Source Monitor Position Sitting Blood Pressure Location Left Arm Pain Scale: 0-10 Numeric Is Patient Pain Free? No left side -Description Aching -Intensity 3 -Duration (hours) Chronic -Pain Behavior No Change in Behavior -Alleviating Factors/Interventions None Communication Assessment Preferred language Indonesian Able to Read Yes Able to Write Yes Communication Tools None Right Hearing Abillity Normal Left Hearing Abillity Normal Visual Assistive Devices Glasses Teaching Assessment Preferences Verbal Barriers to Learning None Readiness To Learn Excellent Willingness to Engage in Self Management High Activies Readiness to Engage in Self Management High Activities Anxiety Level Calm Cooperation Cooperative Perception Coherent Interest in Health Problem Asks Questions Education Importance Acknowledges Need Does Patient Smoke tobacco or other Yes substances Smoking Status Current every day smoker Is Patient Diabetic No Functional Assessment Recent Decline in Ability to Perform Ambulation List Device(s) with Patient cane Culture/Sikh/Parts Specialist Cultural/Sikh Needs that may affect No Treatment Plan Teaching: Wound Center *Welcome to the Wound Center -Person Taught Patient -Teaching Method Discussion -Response to teaching Verbalize Understanding WC - Nurse 2 - General Ulcer CM Notes Start: 10/11/24 09:18 Freq: Status: Active Protocol: Activity Type Activity Date Activity User E-sign Co-sign Detail Recorded Client Recorded Date Recorded By Document 10/11/24 09:56 [id number] 10/11/24 09:58 10/11/24 09:56 Pain Scale: 0-10 Numeric Is Patient Pain Free? Yes WC - Nurse 3 - General Ulcer D/C NN Start: 10/11/24 09:18 Freq: Status: Active Protocol: Activity Type Activity Date Activity User E-sign Co-sign Detail Recorded Client Recorded Date Recorded By Document 10/11/24 10:01 [id number] 10/11/24 10:01 10/11/24 10:01 Is Patient Pain Free? Yes WC - Visit Discharge Discharge Condition Stable Ambulatory Status Ambulatory,Cane Transportation Private Auto Charges/Coding Visit Charges Office Visits / Consults: 05205 OV L3 New 30min Assessment/Plan Assessment/Plan (1) History of decubitus ulcer: CODE(S): Z87.2 - Personal history of diseases of the skin and subcutaneoustissue (2) Dermatitis: CODE(S): L30.9 - Dermatitis, unspecified PLAN: Plan As above, no open area identified at this time. Evidence of prior dermatitis/possible ulceration. Moisture control and prevention discussed. Offloading discussed. Patient and daughter voiced understanding. There is no open area, no indication for follow-up at the wound center. Continue follow-up with PCP and here as needed. Their questions were answered and they were advised to let us know if he had any further questions or concerns. Discharged from the wound center. This note was generated with [employer] software. It may contain incorrectwords, spelling, and punctuation that were not noted in checking the note beforesigning. 10/12/24 1750 Cosigner Signature (if applicable): CC: ~ Signed [facility]08-21-2025 Evaluation note* Diagnosis Onset Date Resolution Status Admit Date Dermatitis acute October 11, 2 025 8:57am History of decubitus ulcer acute October 11, 2024 8:57am [facility] Work Phone: [phone] Hospital Discharge instructions Patient Education 09/04/2024 18:42:37 Abdominal Pain Abdominal Pain Abdominal pain is pain in the stomach or belly area. Everyone has this pain from time to time. In many cases it goes away on its own. But abdominal pain can sometimes be due to a serious problem, such as appendicitis. So it s important to know when to get help. Causes of abdominal pain There are many possible causes of abdominal pain. Common causes in adults include: Constipation, diarrhea, or gas Stomach acid flowing back up into the esophagus (acid reflux or heartburn) Severe acid reflux, called GERD (gastroesophageal reflux disease) A sore in the lining of the stomach or small intestine (peptic ulcer) Inflammation of the gallbladder, liver, or pancreas Gallstones or kidney stones Appendicitis Intestinal blockage An internal organ pushing through a muscle or other tissue (hernia) Urinary tract infections In women, menstrual cramps, fibroids, ovarian cysts, pelvic inflammatory disease, or endometriosis Inflammation or infection of the intestines, including Crohn's disease and ulcerative colitis Irritable bowel syndrome Diagnosing the cause of abdominal pain Your healthcare provider will give you a physical exam help find the cause of your pain. If needed,you will have tests. Belly pain has many possible causes. So it can be hard to find the reason for your pain. Giving details about your pain can help. Tell your provider where and when you feel the pain, and what makes it better or worse. Also let your provider know if you have other symptoms such as: Fever Tiredness Upset stomach (nausea) Vomiting Changes in bathroom habits Blood in the stool or black, tarry stool Weight loss that you can't explain (involuntary weight loss?) Also report any family history of stomach or intestinal problems, or cancers. Tell your provider about all your alcohol use and drug use. Tell your provider about all medicines you use, including herbs, vitamins, and supplements. Treating abdominal pain Some causes of pain need emergency medical treatment right away. These include appendicitis or a bowel blockage. Other problems can be treated with rest, fluids, or medicines. Your healthcare provider can give you specific instructions for treatment or self-care based on what is causing your pain. If you have vomiting or diarrhea, sip water or other clear fluids. When you are ready to eat solid foods again, start with small amounts of [id number]-zd-[id number], low- fat foods. These include apple sauce, toast, or crackers. When to get medical care Call 911 or go to the hospital right away if you: Can t pass stool and are vomiting Are vomiting blood or have bloody diarrhea or black, tarry diarrhea Have chest, neck, or shoulder pain Feel like you might pass out Have pain in your shoulder blades with nausea Have sudden, severe belly pain Have new, severe pain unlike any you have felt before Have a belly that is rigid, hard, and hurts to touch Call your healthcare provider if you have: Pain for more than 5 days Bloating for more than 2 days Diarrhea for more than 5 days A fever of 100.4 F (38 C) or higher, or as directed by your healthcare provider Pain that gets worse Weight loss for no reason Continued lack of appetite Blood in your stool How to prevent abdominal pain Here are some tips to help prevent abdominal pain: Eat smaller amounts of food at each meal. Don't eat greasy, fried, or other high-fat foods. Don't eat foods that give you gas. Exercise regularly. Drink plenty of fluids. To help prevent GERD symptoms: Quit smoking. Reduce alcohol and foods that increase stomach acid. Don't use aspirin or okzs-hcb-wwzdrwg pain and fever medicines, if possible. This includes nonsteroidal anti-inflammatory drugs (NSAIDs). Lose excess weight. Finish eating at least 2 hours before you go to bed or lie down. Raise the head of your bed. [id number] [employer]. [address] [place] [address]. All rights reserved. This information is not intended as a substitute for professional medical care. Always follow yourhealthcare professional's instructions. Follow Up Care 09/04/2024 15:31:02 With:LONNIE JAVIER MD, Urology Service Address: [address] [place] [address] [address] [place] [address]- [phone] When:2-4 days With:EDY SALOMON DO Address: [address] [facility] [place] [address] [phone] When:2-4 days [facility] 07-15-2025 Note Discharge Instructions Thank you for allowing [facility] to assist you with your healthcare needs. The following is importantdischarge information regarding your hospital visit. Diagnosis from Today's Visit Abdominal pain Constipation Left renal mass What to Do Next Instructions from Your Care Team No qualifying data available. Post Acute Orders No qualifying data available. You Need to Schedule the Following Appointments Follow Up with LONNIE JAVIER MD, Urology Service When:Within 2-4 days Where:[address] [facility] [address] [place] [address] [phone] Follow Up with EDY SALOMON DO When:Within 2-4 days Where:[address] [facility] [place] [address] [phone] Allergies aspirin BLEED Medications Please ask your primary doctor or pharmacist before taking any other medication not listed, including over the counter drugs, herbal medications, vitamins and or supplements as they may interact withyour home medications. What How Much When Why Instructions Last Dose Unchanged acetaminophen (acetaminophen 500 mg oral tablet) 1 tab(s) by mouth Every 4 hours as needed for as needed for pain Unchanged albuterol (Albuterol (Eqv-Ventolin HFA) 90 mcg/ inh inhalation aerosol) 2 puff(s) by inhalation Every 6 hours as needed for Shortness of breath or wheezing Duration: 30 Days Unchanged atorvastatin (atorvastatin 40 mg oral tablet) 1 tab(s) by mouth Daily at bedtime Duration: 100 Days Unchanged calcium-vitamin D (calcium (as carbonate)-vitamin D 600 mg-20 mcg (800 intl units) oral tablet, chewable) 1 tab(s) Chewed Two (2) times a day Duration: 90 Days Unchanged famotidine (famotidine 20 mg oral tablet) 1 tab(s) by mouth Two (2) times a day as needed for Reflux Duration: 90 Days avoid eating and drinking for 10 minutes after each dose Unchanged fluticasone nasal (Flonase 50 mcg/ inh nasal spray) 2 spray(s) each nostril Once a day as needed for as needed for allergy symptoms Eustachian tube dysfunction Unchanged fluticasone-salmeterol (Advair Diskus 250 mcg-50 mcg inhalation powder) 1 puff(s) by inhalation Once a day Unchanged isosorbide mononitrate (isosorbide mononitrate 30 mg oral tablet, extended release) 1 tab(s) by mouth Once a day Unchanged levothyroxine (levothyroxine 75 mcg (0.075 mg) oral tablet) 1 tab(s) by mouth Once a day before a meal as a single daily dose before breakfast Unchanged loratadine (loratadine 10 mg oral tablet) 1 tab(s) by mouth As Directed as needed for as needed for allergy symptoms Unchanged nystatin topical (nystatin 100,000 units/ g topical cream) 1 application Topical Two (2) times a day as needed for Rash Duration: 30 Days Apply to the affected area upper abdomen rash twice daily until healing complete. Unchanged oxyCODONE (oxyCODONE 5 mg oral tablet ( IMMEDIATE release )) 1 tab(s) by mouth Every 6 hours as needed for as needed for pain Unchanged polyethylene glycol 3350 (MiraLax oral powder for reconstitution) See instructions gram(s) Oral qDay Please take this list to your next doctor s visit. Bring all medications you take, including over the counter medications, herbals and other supplements with you to your doctor s visit. Patients and families are reminded to discard old lists and to update any records with all medication providers or retail pharmacies. Education Materials Abdominal Pain Abdominal pain is pain in the stomach or belly area. Everyone has this pain from time to time. In many cases it goes away on its own. But abdominal pain can sometimes be due to a serious problem, such as appendicitis. So it s important to know when to get help. Causes of abdominal pain There are many possible causes of abdominal pain. Common causes in adults include: Constipation, diarrhea, or gas Stomach acid flowing back up into the esophagus (acid reflux or heartburn) Severe acid reflux, called GERD (gastroesophageal reflux disease) A sore in the lining of the stomach or small intestine (peptic ulcer) Inflammation of the gallbladder, liver, or pancreas Gallstones or kidney stones Appendicitis Intestinal blockage An internal organ pushing through a muscle or other tissue (hernia) Urinary tract infections In women, menstrual cramps, fibroids, ovarian cysts, pelvic inflammatory disease, or endometriosis Inflammation or infection of the intestines, including Crohn's disease and ulcerative colitis Irritable bowel syndrome Diagnosing the cause of abdominal pain Your healthcare provider will give you a physical exam help find the cause of your pain. If needed,you will have tests. Belly pain has many possible causes. So it can be hard to find the reason for your pain. Giving details about your pain can help. Tell your provider where and when you feel the pain, and what makes it better or worse. Also let your provider know if you have other symptoms such as: Fever Tiredness Upset stomach (nausea) Vomiting Changes in bathroom habits Blood in the stool or black, tarry stool Weight loss that you can't explain (involuntary weight loss?) Also report any family history of stomach or intestinal problems, or cancers. Tell your provider about all your alcohol use and drug use. Tell your provider about all medicines you use, including herbs, vitamins, and supplements. Treating abdominal pain Some causes of pain need emergency medical treatment right away. These include appendicitis or a bowel blockage. Other problems can be treated with rest, fluids, or medicines. Your healthcare provider can give you specific instructions for treatment or self-care based on what is causing your pain. If you have vomiting or diarrhea, sip water or other clear fluids. When you are ready to eat solid foods again, start with small amounts of rzqs-vj-sbartt, low- fat foods. These include apple sauce, toast, or crackers. When to get medical care Call 911 or go to the hospital right away if you: Can t pass stool and are vomiting Are vomiting blood or have bloody diarrhea or black, tarry diarrhea Have chest, neck, or shoulder pain Feel like you might pass out Have pain in your shoulder blades with nausea Have sudden, severe belly pain Have new, severe pain unlike any you have felt before Have a belly that is rigid, hard, and hurts to touch Call your healthcare provider if you have: Pain for more than 5 days Bloating for more than 2 days Diarrhea for more than 5 days A fever of 100.4 F (38 C) or higher, or as directed by your healthcare provider Pain that gets worse Weight loss for no reason Continued lack of appetite Blood in your stool How to prevent abdominal pain Here are some tips to help prevent abdominal pain: Eat smaller amounts of food at each meal. Don't eat greasy, fried, or other high-fat foods. Don't eat foods that give you gas. Exercise regularly. Drink plenty of fluids. To help prevent GERD symptoms: Quit smoking. Reduce alcohol and foods that increase stomach acid. Don't use aspirin or fdmh-vjq-lizgtyd pain and fever medicines, if possible. This includes nonsteroidal anti-inflammatory drugs (NSAIDs). Lose excess weight. Finish eating at least 2 hours before you go to bed or lie down. Raise the head of your bed. [id number] [employer]. [address] [place] [address], [place] [address]. All rights reserved. This information is not intended as a substitute for professional medical care. Always follow yourhealthcare professional's instructions. Additional Information VACCINATE! IT SAVES LIVES! Members of the community who have not yet received the COVID-19 vaccine and would like to receive it can visit one of [facility] vaccine clinics. There are many vaccine clinic locations within the [facility]. For locations and available times, please visit [email or web address] It is important to note that some COVID mobile vaccine clinics are held outdoors and may be canceled in rainy or stormy conditions. To learn more about pediatric vaccinations (ages 5-11), we invite you to visit the [employer] webpage. [email or web address] learn more about the COVID-19 vaccine, we invite you to visit the CDC website for a list of frequently asked questions. https://www.cdc.gov/coronavirus/2019-ncov/vaccines/faq.html [employer] Patient Portal Access Instructions: Stay connected with your healthcare team and access your personal medical information anytime with the [employer] Patient Portal. If you would like a full copy of your medical records please contact the [facility] Medical Records Department Tuesday through Tuesday between 8a.m. and 4:30p.m. Please follow the directions below to access the portal: 1.Access the email account you provided upon registration to the [facility].2.Look for an invitation email from [facility].3.Open the email and access the invitation link: Accept Invitation to [employer]4.Fill in the required sagastume to create your account. Sign into [email or web address] with your username and password that you created in the above steps to stay up to date. You can then view a summary of results, a summary of your visits, and the ability to download your summaries to your computer or send the information securely to a physician. Remember that your healthcare information is confidential, so carefully consider who you will allow to register on the [employer] Patient Portal for access to your information. You can also access the [employer] Patient Portal on the [employer]. Simply click on Health Records under [employer] and then click on the [employer] logo. HOW TO SAFELY DISPOSE OF PRESCRIPTION MEDICATIONS Please use one of the following methods to safely dispose of your unused medications. 1.Use a drug disposal kit: the drug disposal pouch allows you to safely discard your old and unuseddrugs. Ask your nurse to give you one when you are discharged.2.Visit a local take-back location: Many local pharmacies and police departments have programs that collect old and unwanted prescriptiondrugs. Call your local pharmacy or go to http://[employer]8J0Hj1k to find one close to you.3.Make use of household items: Use cat litter or old coffee grounds to dispose medications if other options arenot available. Mix your drugs with these household products, seal them in an airtight container andthrow it into the garbage. Call [facility]: [phone] to be sure your drugs can be disposed of in this way. Some medicines may require a different approach.4.Never flush your medications down the toilet. IF YOU HAVE BEEN PRESCRIBED AN OPIOIDS FOR PAIN If you have been prescribed an opioid (such as hydrocodone, oxycodone or morphine), it is critical to understand the possible side effects and risks of opioid pain medications. Even when taken as directed, opioids can have several side effects including: Tolerance, meaning you might need to take more of a medication for the same pain relief. Nausea, vomiting and/or constipation. Sleepiness, dizziness, dry mouth, confusion, depression or itching. Physical dependence, meaning you have withdrawal symptoms when a medication is stopped ? this can develop within a few days. KNOW YOUR RESPONSIBILITIES It is important to know exactly how much and how often to take the opioid pain medications you are prescribed. Never take opioids in higher amounts or more often than prescribed. Do not combine opioids with alcohol or other drugs that cause drowsiness, such as benzodiazepines, also known as benzos,including diazepam and alprazolam, muscle relaxants or sleep aids. Never sell or share prescriptionopioids. This is illegal. Store opioids in a secure place and out of reach of others (including children, family, friends and visitors). The last page(s) of this document has been signed and retained as a CHART COPY Signatures Patient Education Materials Abdominal Pain Medication Leaflets My discharge plan and instructions have been reviewed and explained to me and I,ROSA LANDERS understand my current condition and have read and understand these discharge instructions. I have received a written copy of the plan/instructions. If I have questions, I am aware that I should contact my doctor. 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 Multiplanar reformatted images are provided for review. Automated exposure control, iterative reconstruction, and/or weight based adjustment of the mA/kV was utilized to reduce the radiation dose to as low as reasonably achievable. COMPARISON: 05/23/2019 HISTORY: ORDERING SYSTEM PROVIDED HISTORY: Reason for Exam: rlq pain started today, no n/v, no c/d, limited hx, no ca Abdominal pain, acute, nonlocalized FINDINGS: Lower Chest: Same day CT chest reported separately. Organs: Liver, gallbladder, spleen and adrenal glands are unremarkable. Mild dilation of the pancreatic duct and common bile duct which is nonspecific. Kidneys: Heterogeneously enhancing mass in the left mid pole of the kidney measuring 2.8 x 2.5 cm in the axial plane (series 2, image 42), and 2.7 cm cranio caudally. 4.3 cm left renal cyst. Pelvis: Moderate bladder wall thickening. No pelvic or inguinal lymphadenopathy. GI: Large colonic stool burden. No evidence for small bowel obstruction. Unremarkable appendix. The stomach and several loops of small bowel are decompressed limiting evaluation. No free intraperitoneal air. No abdominal lymphadenopathy. Vasculature: Status post abdominal aortic aneurysm repair with stable lateral dilation of the aorta at the hiatus. Diffuse atherosclerotic calcifications of the abdominal aorta and its branch vessels. Bones: Multilevel degenerative changes of the spine. Mild dextrocurvature of the lumbar spine. Grade 1 retrolisthesis of L1 on L2, L2 on L3, and L3 on L4. Severe degenerative changes of the bilateral hips, left greater than right. 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 Moderate bladder wall thickening. Recommend correlation with urinalysis to exclude cystitis. Large colonic stool burden. I have personally reviewed the images of this examination and agree with the resident's findings and interpretation. Interpreted by: Kuldip Villagomez Preliminary Report By: Ladi Reynolds Electronically signed By Kuldip Villagomez Dictated Date: 09/04/2024 5:56:56 PM Prelim Date: 09/04/2024 6:20:02 PM Sign Date: 09/04/2024 6:20:02 PM Ordering Provider: [facility]07-15-2025 Note* Exam Date Time Procedure Performing Provider Status 09/04/24 3:[address] Thorax w/o Contrast ROSANA THORNE MD; Auth (Verified) [id number] ORIGINAL EXAMINATION: CT OF THE CHEST WITHOUT CONTRAST 09/04/2024 3:42 pm TECHNIQUE: CT of the chest was performed without the administration of intravenous contrast. Multiplanar reformatted images are provided for review. Automated exposure control, iterative reconstruction, and/or weight based adjustment of the mA/kV was utilized to reduce the radiation dose to as low as reasonably achievable. COMPARISON: CT thorax 02/27/2023 and 05/23/2019 HISTORY: ORDERING SYSTEM PROVIDED HISTORY: Reason for Exam: shortness of breath, COPD, emphysema shortness of breath, COPD, emphysema FINDINGS: The heart is normal in size. No pericardial thickening or effusion. Coronary atherosclerosis. The main pulmonary arteries normal in caliber. Mild ectasia of the ascending aorta at 4.2 cm. Stable outpouching of the aortic arch at 9 mm (series 2, image 28). 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 Thyroid is atrophic. No axillary, supraclavicular, mediastinal, or hilar adenopathy within the confines of a noncontrast exam. Calcified left hilar lymph nodes from prior granulomatous disease. No endotracheal or main endobronchial lesion. No pneumothorax or pleural effusion. Scattered pleural and parenchymal scarring some which appear nodular and are stable from prior. Severe emphysematous changes. No focal consolidation or pulmonary edema. Scattered calcified granulomas. No new pulmonary nodules. 4.2 cm left midpole simple renal cyst. No additional contributory abnormality within visualized upper abdomen. No acute osseous abnormality. Degenerative changes of the spine. IMPRESSION: No acute finding. Severe emphysematous changes with grossly stable scattered scarring some of which appears nodular. Mildly ectatic ascending thoracic aorta. 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 I have personally reviewed the images of this examination and agree with the resident's findings and interpretation. Interpreted by: Rosana Thorne MD Preliminary Report By: Sony Polanco Electronically signed By Rosana Thorne MD Dictated Date: 09/04/2024 3:52:51 PM Prelim Date: 09/04/2024 4:13:45 PM Sign Date: 09/04/2024 4:13:45 PM Ordering Provider: [facility]07-15-2025 Note* Exam Date Time Procedure Performing Provider Status 09/04/24 3:06 PM MRI Brain w/ + w/o Contrast Trent FERRER MD; Auth (Verified) [id number] ORIGINAL EXAMINATION: MR Brain with intravenous contrast TECHNIQUE: Multiplanar multi sequential MRI of the brain without and with intravenous contrast per standard protocol. COMPARISON: None. HISTORY: ORDERING SYSTEM PROVIDED HISTORY: Reason for Exam: LIGHTHEADEDNESS, RULE OUT ANEURYSM, MALIGNANCY AND STROKE FINDINGS: Parenchyma: No acute hemorrhage, acute/early subacute infarction, mass, or abnormal enhancement is seen. The francisco-white matter junctions are maintained. Mild generalized parenchymal volume loss is present. A remote lacunar infarct of the left cerebellum is present. There are no space occupying intra-axial masses or extra-axial fluid collections. Punctate FLAIR hyperintensities in the subcortical, periventricular, and deep white matter statistically reflect mild chronic microvascular white matter ischemic disease. No remote hemorrhagic blood products are present. Ventricles: No ventricular enlargement or ventricular effacement. Orbits: Normal. Bilateral lens implants. Major intracranial flow voids: Preserved. Paranasal sinuses: Small bilateral maxillary sinus retention cysts or polyps. Mastoids and middle ears: Clear. Bones: Normal. Extracranial soft tissues: Normal. IMPRESSION: 1. No acute intracranial pathology. 2. Mild generalized parenchymal volume loss and chronic microvascular white matter ischemic disease. 3. Remote left cerebellar lacunar infarct. Interpreted by: Meryl Ferrer MD Preliminary Report By: Meryl Ferrer MD Electronically signed By Meryl Ferrer MD Dictated Date: 09/04/2024 3:39:25 PM Prelim Date: 09/04/2024 3:44:14 PM Sign Date: 09/04/2024 3:44:14 PM Ordering Provider: [facility]12-23-2024 Note* Exam Date Time Procedure Performing Provider Status 02/13/24 1:43 PM BD Bone Density DEXA Axial Skeleton DUNIA PEARCE DO; Auth (Verified) [id number] ORIGINAL EXAMINATION: BONE DENSITOMETRY 02/13/2024 1:43 pm TECHNIQUE: A bone density dual x-ray absorptiometry (DEXA) scan was performed of the lumbar spine and left hip on a Hologic system. COMPARISON: None. HISTORY: ORDERING SYSTEM PROVIDED HISTORY: Reason for Exam: Osteoporosis Screening Postmenopausal. FINDINGS: LEFT HIP: The bone mineral density in the total hip is measured at 0.711 g/cm2 corresponding to a T-score of -1.9. This is within the osteopenic range by WHO criteria. The bone mineral density of the femoral neck is measured at 0.732 g/cm2 corresponding to a T-score of -1.1. This is within the osteopenic range by WHO criteria. Lumbar spine: The bone mineral density of the lumbar spine, L1 through L4 is measured at 1.158 g/cm2 corresponding to a T-score of 1.0. This is within the normal range by WHO criteria. 10 year fracture risk: Major osteoporotic fracture, 11%. Hip fracture, 2.6%. IMPRESSION: Osteopenia by WHO criteria. Interpreted by: Dunia Pearce Preliminary Report By: Dunia Pearce Electronically signed By Dunia Pearce Dictated Date: 02/13/2024 2:30:04 PM Prelim Date: 02/13/2024 2:32:49 PM Sign Date: 02/13/2024 2:32:49 PM Ordering Provider: EDY SALOMON [facility]04-15-2024 Note All parts labelled with patient name and [id number] Received in formalin labelled left lateral scalp Is a white smooth oval-shaped cystic cavity withno surfacing skin measuring 2.4 x 1.6 x 1.6 cm. Sectioning reveals white light brown cystic cut surfaces. RS-1 Meryl Martin Pathologists' Geothermal Hvac Technician (ASCP) Dictated by [facility] 04-12-2024 Note All parts labelled with patient name and [id number] Received in formalin labelled left lateral scalp Is a white smooth oval-shaped cystic cavity withno surfacing skin measuring 2.4 x 1.6 x 1.6 cm. Sectioning reveals white light brown cystic cut surfaces. RS-1 Meryl Martin Pathologists' Geothermal Hvac Technician (ASCP) Dictated by [facility] 04-12-2024 Note All parts labelled with patient name and [id number] Received in formalin labelled left lateral scalp Is a white smooth oval-shaped cystic cavity withno surfacing skin measuring 2.4 x 1.6 x 1.6 cm. Sectioning reveals white light brown cystic cut surfaces. RS-1 Hermann Cho' Geothermal Hvac Technician (ASCP) Dictated by [facility] 04-12-2024 Note All parts labelled with patient name and [id number] Received in formalin labelled left lateral scalp Is a white smooth oval-shaped cystic cavity withno surfacing skin measuring 2.4 x 1.6 x 1.6 cm. Sectioning reveals white light brown cystic cut surfaces. RS-1 Meryl Martin Pathologists' Geothermal Hvac Technician (ASCP) Dictated by [facility] 04-12-2024 Note All parts labelled with patient name and [id number] Received in formalin labelled left lateral scalp Is a white smooth oval-shaped cystic cavity withno surfacing skin measuring 2.4 x 1.6 x 1.6 cm. Sectioning reveals white light brown cystic cut surfaces. RS-1 Meryl Martin Pathologists' Geothermal Hvac Technician (ASCP) Dictated by [facility] 04-12-2024 Note All parts labelled with patient name and [id number] Received in formalin labelled left lateral scalp Is a white smooth oval-shaped cystic cavity withno surfacing skin measuring 2.4 x 1.6 x 1.6 cm. Sectioning reveals white light brown cystic cut surfaces. RS-1 Meryl Martin Pathologists' Geothermal Hvac Technician (ASCP) Dictated by [facility] 04-12-2024 Note All parts labelled with patient name and [id number] Received in formalin labelled left lateral scalp Is a white smooth oval-shaped cystic cavity withno surfacing skin measuring 2.4 x 1.6 x 1.6 cm. Sectioning reveals white light brown cystic cut surfaces. RS-1 Hermann Cho' Geothermal Hvac Technician (ASCP) Dictated by [facility] 01-08-2024 Hospital Discharge instructions Patient Education 02/28/2023 11:07:27 Incision Care, Adult Incision Care, Adult An incision is a surgical cut that is made through your skin. Most incisions are closed after surgery. Your incision may be closed with stitches (sutures), shirley, skin glue, or adhesive strips. Youmay need to return to your health care provider to have sutures or shirley removed. This may occur several days to several weeks after your surgery. The incision needs to be cared for properly to prevent infection. How to care for your incision Incision care Follow instructions from your health care provider about how to take care of your incision. Make sure you: ?Wash your hands with soap and water before you change the bandage (dressing). If soap and water are not available, use hand hemotherapist. ?Change your dressing as told by your health care provider. ?Leave sutures, skin glue, or adhesive strips in place. These skin closures may need to stay in place for 2 weeks or longer. If adhesive strip edges start to loosen and curl up, you may trim the loose edges. Do not remove adhesive strips completely unless your health care provider tells you to do that. Check your incision area every day for signs of infection. Check for: ?More redness, swelling, or pain. ?More fluid or blood. ?Warmth. ?Pus or a bad smell. Ask your health care provider how to clean the incision. This may include: ?Using mild soap and water. ?Using a clean towel to pat the incision dry after cleaning it. ?Applying a cream or ointment. Do this only as told by your health care provider. ?Covering the incision with a clean dressing. Ask your health care provider when you can leave the incision uncovered. Do not take baths, swim, or use a hot tub until your health care provider approves. Ask your healthcare provider if you can take showers. You may only be allowed to take sponge baths for bathing. Medicines If you were prescribed an antibiotic medicine, cream, or ointment, take or apply the antibiotic as told by your health care provider. Do not stop taking or applying the antibiotic even if your condition improves. Take ncci-bxk-xyefibs and prescription medicines only as told by your health care provider. General instructions Limit movement around your incision to improve healing. ?Avoid straining, lifting, or exercise for the first month, or for as long as told by your health care provider. ?Follow instructions from your health care provider about returning to your normal activities. ?Ask your health care provider what activities are safe. Protect your incision from the sun when you are outside for the first 6 months, or for as long as told by your health care provider. Apply sunscreen around the scar or cover it up. Keep all follow-up visits as told by your health care provider. This is important. Contact a health care provider if: Your have more redness, swelling, or pain around the incision. You have more fluid or blood coming from the incision. Your incision feels warm to the touch. You have pus or a bad smell coming from the incision. You have a fever or shaking chills. You are nauseous or you vomit. You are dizzy. Your sutures or shirley come undone. Get help right away if: You have a red streak coming from your incision. Your incision bleeds through the dressing and the bleeding does not stop with gentle pressure. The edges of your incision open up and separate. You have severe pain. You have a rash. You are confused. You faint. You have trouble breathing and a fast heartbeat. This information is not intended to replace advice given to you by your health care provider. Make sure you discuss any questions you have with your health care provider. Document Released: 08/27/2005 Document Revised: 02/09/2019 Document Reviewed: 08/25/2016 [employer] Patient Education 2020 [employer] 02/28/2023 11:06:35 Abdominal Aortic Aneurysm Open Repair Abdominal Aortic Aneurysm Open Repair Abdominal aortic aneurysm open repair is a surgery to fix an aortic aneurysm in the abdominal area.An aneurysm is a weak or damaged part of an artery wall that bulges out from the normal force of blood pumping through the body. An abdominal aortic aneurysm is an aneurysm that happens in the lower part of the aorta, which is the main artery of the body. Surgery is often done if there is a high risk that the aneurysm might burst (rupture). The bigger the aneurysm gets, the more chance there is that it will rupture. A ruptured aneurysm can cause bleeding inside the body that could put a person's life in danger. Before that happens, surgery is neededto fix the problem. Surgery may also be done if the aneurysm causes symptoms such as pain in the back, abdomen, or side. In abdominal aortic aneurysm open repair, a tube-shaped piece of man-made material (aortic graft) is placed in the damaged or weak part of the aorta to repair it. Tell a health care provider about: Any allergies you have. All medicines you are taking, including vitamins, herbs, eye drops, creams, and wgst-ziz-wtvlfrk medicines. Any problems you or family members have had with anesthetic medicines. Any blood disorders you have. Any surgeries you have had. Any medical conditions you have, including any recent symptoms of colds or infections. Whether you are or may be . What are the risks? Generally, this is a safe procedure. However, problems may occur, including: Infection. Bleeding. Allergic reactions to medicines. Lung problems. Intestine problems. Heart attack. Blood clots. Very low blood pressure. Kidney damage. Nerve damage that can cause pain or numbness in the leg. What happens before the procedure? Staying hydrated Follow instructions from your health care provider about hydration, which may include: Up to 2 hours before the procedure you may continue to drink clear liquids, such as water, clear fruit juice, black coffee, and plain tea. Eating and drinking restrictions Follow instructions from your health care provider about eating and drinking, which may include: 8 hours before the procedure stop eating heavy meals or foods such as meat, fried foods, or fatty foods. 6 hours before the procedure stop eating light meals or foods, such as toast or cereal. 6 hours before the procedure stop drinking milk or drinks that contain milk. 2 hours before the procedure stop drinking clear liquids. Medicines Ask your health care provider about: ?Changing or stopping your regular medicines. This is especially important if you are taking diabetes medicines or blood thinners. ?Taking medicines such as aspirin and ibuprofen. These medicines can thin your blood. Do not take these medicines before your procedure if your health care provider instructs you not to. You may be given antibiotic medicine to help prevent infection. You may be given medicine that causes you to have bowel movements. It is important to empty the intestines before this surgery. General instructions You may need to have blood tests, a test to check heart rhythm (electrocardiogram, or ECG), or a test to check blood flow (angiogram) before the surgery. Imaging tests will be done to check the size and location of the aneurysm. These tests could include an ultrasound, a CT scan, or an MRI. Do not use any products that contain nicotine or tobacco such as cigarettes and e-cigarettes for aslong as possible before the surgery. If you need help quitting, ask your health care provider. Ask your health care provider how your surgical site will be marked or identified. Plan to have someone take you home from the hospital or clinic. What happens during the procedure? To reduce your risk of infection: ?Your health care team will wash or sanitize their hands. ?Your skin will be washed with soap. ?Hair may be removed from the surgical area. An IV tube will be inserted into one of your veins. You will be given a medicine to make you fall asleep (general anesthetic). A thin tube (catheter) will be placed in your bladder to drain urine during and after surgery. A small tube (epidural catheter) may be placed into your lower spine. It will be used to give pain medicine during and after surgery. The surgeon will make an incision in your abdomen in the area of the aneurysm. Clamps will be put on the abdominal aorta. One will be put above the aneurysm, and one will be put below it. This will stop the blood flow. Next, the surgeon will open the aneurysm and then: ?Sew the graft to healthy parts of the aorta, right above and below the aneurysm. ?Wrap the verduzco of the open aneurysm around the graft. ?Sew the artery closed. The clamps will be removed. This will let the blood flow again. The incision will be closed using stitches (sutures) or shirley. It will then be covered with a bandage (dressing). The procedure may vary among health care providers and hospitals. What happens after the procedure? Your blood pressure, heart rate, breathing rate, and blood oxygen level will be monitored until themedicines you were given have worn off. Your IV access tube and urinary catheter will stay in place for a few days. They will be taken out once your body is doing its normal functions such as urinating. You may be given pain medicine through the epidural catheter for a few days. You might also have a tube that runs through your nose into the stomach to remove fluids. Once the intestines are working again, the tube in the nose will be taken out. This usually happens in 2 3 days. A number of tests may be done to check your condition and the repaired aorta. These might include X-rays, an ECG, or an ultrasound. You may be asked to cough and to do deep breathing exercises often. This helps keep you from getting a lung infection. You may have to wear compression stockings. These stockings help to prevent blood clots and reduce swelling in your legs. This information is not intended to replace advice given to you by your health care provider. Make sure you discuss any questions you have with your health care provider. Document Released: 01/26/2010 Document Revised: 01/20/2018 Document Reviewed: 05/03/2016 [employer] Patient Education 2020 [employer]. 02/28/2023 11:05:37 Chronic Kidney Disease, Adult Chronic Kidney Disease, Adult Chronic kidney disease (CKD) occurs when the kidneys become damaged slowly over a long period of time. The kidneys are a pair of organs that do many important jobs in the body, including: Removing waste and extra fluid from the blood to make urine. Making hormones that maintain the amount of fluid in tissues and blood vessels. Maintaining the right amount of fluids and chemicals in the body. A small amount of kidney damage may not cause problems, but a large amount of damage may make it hard or impossible for the kidneys to work the way they should. If steps are not taken to slow down kidney damage or to stop it from getting worse, the kidneys may stop working permanently (end-stage renal disease or ESRD). Most of the time, CKD does not go away, but it can often be controlled. Peoplewho have CKD are usually able to live normal lives. What are the causes? The most common causes of this condition are diabetes and high blood pressure (hypertension). Othercauses include: Heart and blood vessel (cardiovascular) disease. Kidney diseases, such as: ?Glomerulonephritis. ?Interstitial nephritis. ?Polycystic kidney disease. ?Renal vascular disease. Diseases that affect the immune system. Genetic diseases. Medicines that damage the kidneys, such as anti-inflammatory medicines. Being around or being in contact with poisonous (toxic) substances. A kidney or urinary infection that occurs again and again (recurs). Vasculitis. This is swelling or inflammation of the blood vessels. A problem with urine flow that may be caused by: ?Cancer. ?Having kidney stones more than one time. ?An enlarged prostate, in males. What increases the risk? You are more likely to develop this condition if you: Are older than age 60. Are female. Are -[place], , , , or . Are a current or former smoker. Are obese. Have a family history of kidney disease or failure. Often take medicines that are damaging to the kidneys. What are the signs or symptoms? Symptoms of this condition include: Swelling (edema) of the face, legs, ankles, or feet. Tiredness (lethargy) and having less energy. Nausea or vomiting. Confusion or trouble concentrating. Problems with urination, such as: ?Painful or burning feeling during urination. ?Decreased urine production. ?Frequent urination, especially at night. ?Bloody urine. Muscle twitches and cramps, especially in the legs. Shortness of breath. Weakness. Loss of appetite. Metallic taste in the mouth. Trouble sleeping. Dry, itchy skin. A low blood count (anemia). Pale lining of the eyelids and surface of the eye (conjunctiva). Symptoms develop slowly and may not be obvious until the kidney damage becomes severe. It is possible to have kidney disease for years without having any symptoms. How is this diagnosed? This condition may be diagnosed based on: Blood tests. Urine tests. Imaging tests, such as an ultrasound or CT scan. A test in which a sample of tissue is removed from the kidneys to be examined under a microscope (kidney biopsy). These test results will help your health care provider determine how serious the CKD is. How is this treated? There is no cure for most cases of this condition, but treatment usually relieves symptoms and prevents or slows the progression of the disease. Treatment may include: Making diet changes, which may require you to avoid alcohol, salty foods (sodium), and foods that are high in potassium, calcium, and protein. Medicines: ?To lower blood pressure. ?To control blood glucose. ?To relieve anemia. ?To relieve swelling. ?To protect your bones. ?To improve the balance of electrolytes in your blood. Removing toxic waste from the body through types of dialysis, if the kidneys can no longer do theirjob (kidney failure). Managing any other conditions that are causing your CKD or making it worse. Follow these instructions at home: Medicines Take jlpx-qzv-jlgrhvd and prescription medicines only as told by your health care provider. The dose of some medicines that you take may need to be adjusted. Do not take any new medicines unless approved by your health care provider. Many medicines can worsen your kidney damage. Do not take any vitamin and mineral supplements unless approved by your health care provider. Many nutritional supplements can worsen your kidney damage. General instructions Follow your prescribed diet as told by your health care provider. Do not use any products that contain nicotine or tobacco, such as cigarettes and e-cigarettes. If you need help quitting, ask your health care provider. Monitor and track your blood pressure at home. Report changes in your blood pressure as told by your health care provider. If you are being treated for diabetes, monitor and track your blood sugar (blood glucose) levels astold by your health care provider. Maintain a healthy weight. If you need help with this, ask your health care provider. Start or continue an exercise plan. Exercise at least 30 minutes a day, 5 days a week. Keep your immunizations up to date as told by your health care provider. Keep all follow-up visits as told by your health care provider. This is important. Where to find more information [place] [employer]: www.aakp.org National Kidney Foundation: www.kidney.org [place] [employer]: www.akfinc.org [employer] [facility]: www.lifeoptions.org and www.kidneyschool.org Contact a health care provider if: Your symptoms get worse. You develop new symptoms. Get help right away if: You develop symptoms of ESRD, which include: ?Headaches. ?Numbness in the hands or feet. ?Easy bruising. ?Frequent hiccups. ?Chest pain. ?Shortness of breath. ?Lack of menstruation, in women. You have a fever. You have decreased urine production. You have pain or bleeding when you urinate. Summary Chronic kidney disease (CKD) occurs when the kidneys become damaged slowly over a long period of time. The most common causes of this condition are diabetes and high blood pressure (hypertension). There is no cure for most cases of this condition, but treatment usually relieves symptoms and prevents or slows the progression of the disease. Treatment may include a combination of medicines and lifestyle changes. This information is not intended to replace advice given to you by your health care provider. Make sure you discuss any questions you have with your health care provider. Document Released: 11/16/2008 Document Revised: 01/20/2018 Document Reviewed: 03/17/2017 [employer] Patient Education 2020 [employer]. 02/28/2023 11:05:26 Steps to Quit Smoking Steps to Quit Smoking Smoking tobacco is the leading cause of preventable . It can affect almost every organ in the body. Smoking puts you and those around you at risk for developing many serious chronic diseases. Quitting smoking can be difficult, but it is one of the best things that you can do for your health. It is never too late to quit. How do I get ready to quit? When you decide to quit smoking, create a plan to help you succeed. Before you quit: Pick a date to quit. Set a date within the next 2 weeks to give you time to prepare. Write down the reasons why you are quitting. Keep this list in places where you will see it often. Tell your family, friends, and co-workers that you are quitting. Support from your loved ones can make quitting easier. Talk with your health care provider about your options for quitting smoking. Find out what treatment options are covered by your health insurance. Identify people, places, things, and activities that make you want to smoke (triggers). Avoid them. What first steps can I take to quit smoking? Throw away all cigarettes at home, at work, and in your car. Throw away smoking accessories, such as ashtrays and lighters. Clean your car. Make sure to empty the ashtray. Clean your home, including curtains and carpets. What strategies can I use to quit smoking? Talk with your health care provider about combining strategies, such as taking medicines while you are also receiving in-person counseling. Using these two strategies together makes you more likely to succeed in quitting than if you used either strategy on its own. If you are or , talk with your health care provider about finding counseling or other support strategies to quit smoking. Do not take medicine to help you quit smoking unless your health care provider tells you to do so. To quit smoking: Quit right away Quit smoking completely, instead of gradually reducing how much you smoke over a period of time. Research shows that stopping smoking right away is more successful than gradually quitting. Attend in-person counseling to help you build problem-solving skills. You are more likely to succeed in quitting if you attend counseling sessions regularly. Even short sessions of 10 minutes can be effective. Take medicine You may take medicines to help you quit smoking. Some medicines require a prescription and some youcan purchase gclz-wax-ryhpwfz. Medicines may have nicotine in them to replace the nicotine in cigarettes. Medicines may: Help to stop cravings. Help to relieve withdrawal symptoms. Your health care provider may recommend: Nicotine patches, gum, or lozenges. Nicotine inhalers or sprays. Non-nicotine medicine that is taken by mouth. Find resources Find resources and support systems that can help you to quit smoking and remain smoke-free after you quit. These resources are most helpful when you use them often. They include: Online chats with a counselor. Telephone quitlines. Printed self-help materials. Support groups or group counseling. Text messaging programs. Mobile phone apps or applications. Use apps that can help you stick to your quit plan by providing reminders, tips, and encouragement. There are many free apps for mobile devices as well as websites.Examples include Quit Guide from the CDC and smokefree.gov What things can I do to make it easier to quit? Reach out to your family and friends for support and encouragement. Call telephone quitlines (7-471-GQNG-NOW), reach out to support groups, or work with a counselor for support. Ask people who smoke to avoid smoking around you. Avoid places that trigger you to smoke, such as bars, parties, or smoke-break areas at work. Spend time with people who do not smoke. Lessen the stress in your life. Stress can be a smoking trigger for some people. To lessen stress, try: ?Exercising regularly. ?Doing deep-breathing exercises. ?Doing yoga. ?Meditating. ?Performing a body scan. This involves closing your eyes, scanning your body from head to toe, and noticing which parts of your body are particularly tense. Try to relax the muscles in those areas. How will I feel when I quit smoking? Day 1 to 3 weeks Within the first 24 hours of quitting smoking, you may start to feel withdrawal symptoms. These symptoms are usually most noticeable 2 3 days after quitting, but they usually do not last for more than 2 3 weeks. You may experience these symptoms: Mood swings. Restlessness, anxiety, or irritability. Trouble concentrating. Dizziness. Strong cravings for sugary foods and nicotine. Mild weight gain. Constipation. Nausea. Coughing or a sore throat. Changes in how the medicines that you take for unrelated issues work in your body. Depression. Trouble sleeping (insomnia). Week 3 and afterward After the first 2 3 weeks of quitting, you may start to notice more positive results, such as: Improved sense of smell and taste. Decreased coughing and sore throat. Slower heart rate. Lower blood pressure. Clearer skin. The ability to breathe more easily. Fewer sick days. Quitting smoking can be very challenging. Do not get discouraged if you are not successful the first time. Some people need to make many attempts to quit before they achieve long-term success. Do your best to stick to your quit plan, and talk with your health care provider if you have any questionsor concerns. Summary Smoking tobacco is the leading cause of preventable . Quitting smoking is one of the best things that you can do for your health. When you decide to quit smoking, create a plan to help you succeed. Quit smoking right away, not slowly over a period of time. When you start quitting, seek help from your health care provider, family, or friends. This information is not intended to replace advice given to you by your health care provider. Make sure you discuss any questions you have with your health care provider. Document Released: 02/01/2002 Document Revised: 04/27/2019 Document Reviewed: 04/28/2019 [employer] Patient Education 2020 [employer]. Follow Up Care 02/10/2023 09:07:50 With:[facility] has been arranged for you Please call : [phone] with any questions. They will call you before they come out. Address:Unknown When: Unknown With:ROBERT SANDS MD, [facility], Surgery, Vascular Surgeons Address: [facility] [address] [facility] [address] [place] [address] When: Unknown Comments:one month With:EDY SALOMON DO Address: [address] [place] [phone] [phone] When: Unknown Comments:PLEASE CALL THIS OFFICE TO SCHEDULE A HOSPITAL FOLLOW UP APPOINTMENT. With:IGGY DUNCAN Address: [address] [place] [phone] When:03/16/2023 11:30:00 [facility] 01-08-2024 Note Discharge Instructions Thank you for allowing [facility] to assist you with your healthcare needs. The following is importantdischarge information regarding your hospital visit. Your Care Team EDY SALOMON DO Your Diagnosis Eustachian tube dysfunction What to do next Scheduled Follow-Up Appointments Appointment Type When With Where Contact InformationCV OV 03/16/2023 11:30 AM EST IGGY DUNCAN [facility] Medicare 03/29/2023 01:00 PM EST EDY SALOMON DO [address] [address] Follow Up Appointments Follow Up with IGGY DUNCAN When 03/16/2023 11:30 AM EST Where: [address] [place] [address] [address] [place] [address], [place] [address]- [phone] Follow Up with [facility] has been arranged for you Please call : [phone] with any questions. They will call you before they come out. When Follow Up with ROBERT SANDS MD, [facility], Surgery, Vascular Surgeons When Why: one month Where: [facility] [address] [facility] [address] [place] [address] Follow Up with EDY SALOMON DO When Why: PLEASE CALL THIS OFFICE TO SCHEDULE A HOSPITAL FOLLOW UP APPOINTMENT. Where: [address] [place], [place] [phone] The Following Activity and Diet Have Been Ordered for You No qualifying data available. No qualifying data available. The Following Equipment Has Been Ordered for You No qualifying data available. The Following Treatments Have Been Ordered for You Discharge Labs No qualifying data available. Discharge Radiology No qualifying data available. Other Therapies No qualifying data available. Post Acute Orders No qualifying data available. Someone Will Contact You Regarding These Home Health Referrals No home referrals have been ordered for you. No one will call you. Allergies aspirin (BLEED) Medications Please ask your primary doctor or pharmacist before taking any other medication not listed, including over the counter drugs, herbal medications, vitamins and or supplements as they may interact withyour home medications. What How Much When Why Instructions Last Dose New acetaminophen-hydrocodone ([place] 325- 5 mg oral tablet) 1 tab(s) by mouth Every 6 hours as needed for Pain, scale 1-3 New budesonide (Pulmicort Respules 0.5 mg/ 2 mL inhalation suspension) 2 Milliliter by inhalation Two (2) times a day New fluticasone/ umeclidinium/ vilanterol (Trelegy Ellipta 200 mcg-62.5 mcg-25 mcg/ inh inhalation powder) 1 puff(s) by inhalation Once a day Duration: 30 Days Refills: 2 at the same time every day Pickup at [facility] #[id number] Changed albuterol (Albuterol (Eqv-Ventolin HFA) 90 mcg/ inh inhalation aerosol) 2 puff(s) by inhalation Every 6 hours as needed for Shortness of breath or wheezing Duration: 30 Days Pickup at [facility] #[id number] Changed albuterol (Ventolin HFA MDI (90 mcg/ inh) inhalation aerosol) 2 puff(s) by inhalation Every 6 hours as needed for as needed for wheezing Unchanged acetaminophen (acetaminophen 500 mg oral tablet) 1 tab(s) by mouth Every 4 hours as needed for as needed for pain Unchanged acetaminophen-oxyCODONE (acetaminophen-oxyCODONE 325 mg-5 mg oral tablet) 1.5 tab(s) by mouth Two (2) times a day as needed for as needed for pain Unchanged atorvastatin (atorvastatin 40 mg oral tablet) 1 tab(s) by mouth Daily at bedtime Unchanged calcium carbonate (Oyster Shell Calcium 500 (1250 mg calcium carbonate) oral tablet) 1 tab(s) by mouth Once a day Duration: 90 Days with meals. with plenty of water Unchanged carvedilol (carvedilol 6.25 mg oral tablet) 1 tab(s) by mouth Every day Unchanged docusate (docusate sodium 100 mg oral tablet) 1 tab(s) by mouth Two (2) times a day as needed for as needed for constipation Duration: 90 Days with plenty of water Unchanged famotidine (famotidine 20 mg oral tablet) 1 tab(s) by mouth Two (2) times a day as needed for Reflux Duration: 90 Days avoid eating and drinking for 10 minutes after each dose Unchanged fluticasone nasal (Flonase 50 mcg/ inh nasal spray) 2 spray(s) each nostril Once a day as needed for as needed for allergy symptoms Eustachian tube dysfunction Unchanged fluticasone-salmeterol (Advair Diskus 250 mcg-50 mcg inhalation powder) 1 puff(s) by inhalation Once a day Unchanged isosorbide mononitrate (isosorbide mononitrate 30 mg oral tablet, extended release) 1 tab(s) by mouth Once a day Unchanged levothyroxine (levothyroxine 75 mcg (0.075 mg) oral tablet) 1 tab(s) by mouth Once a day before a meal Duration: 90 Days as a single daily dose before breakfast Unchanged loratadine (loratadine 10 mg oral tablet) 1 tab(s) by mouth As Directed as needed for as needed for allergy symptoms Unchanged mupirocin topical (mupirocin 2% topical ointment) 1 application Topical Two (2) times a day Bilateral intranasal application twice daily x 5 days pre-surgery &/ or as many days pre-surgery as possible. Unchanged nystatin topical (nystatin 100,000 units/ g topical cream) 1 application Topical Two (2) times a day as needed for Rash Duration: 30 Days Apply to the affected area upper abdomen rash twice daily until healing complete. Pharmacy Information [id number]: [place], [place] [id number] [phone] Please take this list to your next doctor s visit. Bring all medications you take, including over the counter medications, herbals and other supplements with you to your doctor s visit. Patients and families are reminded to discard old lists and to update any records with all medication providers or retail pharmacies. Education Materials Incision Care, Adult An incision is a surgical cut that is made through your skin. Most incisions are closed after surgery. Your incision may be closed with stitches (sutures), shirley, skin glue, or adhesive strips. Youmay need to return to your health care provider to have sutures or shirley removed. This may occur several days to several weeks after your surgery. The incision needs to be cared for properly to prevent infection. How to care for your incision Incision care Follow instructions from your health care provider about how to take care of your incision. Make sure you: ? Wash your hands with soap and water before you change the bandage (dressing). If soap and water arenot available, use hand hemotherapist. ? Change your dressing as told by your health care provider. ? Leave sutures, skin glue, or adhesive strips in place. These skin closures may need to stay in place for 2 weeks or longer. If adhesive strip edges start to loosen and curl up, you may trim the looseedges. Do not remove adhesive strips completely unless your health care provider tells you to do that. Check your incision area every day for signs of infection. Check for: ? More redness, swelling, or pain. ? More fluid or blood. ? Warmth. ? Pus or a bad smell. Ask your health care provider how to clean the incision. This may include: ? Using mild soap and water. ? Using a clean towel to pat the incision dry after cleaning it. ? Applying a cream or ointment. Do this only as told by your health care provider. ? Covering the incision with a clean dressing. Ask your health care provider when you can leave the incision uncovered. Do not take baths, swim, or use a hot tub until your health care provider approves. Ask your healthcare provider if you can take showers. You may only be allowed to take sponge baths for bathing. Medicines If you were prescribed an antibiotic medicine, cream, or ointment, take or apply the antibiotic as told by your health care provider. Do not stop taking or applying the antibiotic even if your condition improves. Take kgsx-kos-ywotwho and prescription medicines only as told by your health care provider. General instructions Limit movement around your incision to improve healing. ? Avoid straining, lifting, or exercise for the first month, or for as long as told by your health care provider. ? Follow instructions from your health care provider about returning to your normal activities. ? Ask your health care provider what activities are safe. Protect your incision from the sun when you are outside for the first 6 months, or for as long as told by your health care provider. Apply sunscreen around the scar or cover it up. Keep all follow-up visits as told by your health care provider. This is important. Contact a health care provider if: Your have more redness, swelling, or pain around the incision. You have more fluid or blood coming from the incision. Your incision feels warm to the touch. You have pus or a bad smell coming from the incision. You have a fever or shaking chills. You are nauseous or you vomit. You are dizzy. Your sutures or shirley come undone. Get help right away if: You have a red streak coming from your incision. Your incision bleeds through the dressing and the bleeding does not stop with gentle pressure. The edges of your incision open up and separate. You have severe pain. You have a rash. You are confused. You faint. You have trouble breathing and a fast heartbeat. This information is not intended to replace advice given to you by your health care provider. Make sure you discuss any questions you have with your health care provider. Document Released: 08/27/2005 Document Revised: 02/09/2019 Document Reviewed: 08/25/2016 [employer] Patient Education 2020 [employer] Abdominal Aortic Aneurysm Open Repair Abdominal aortic aneurysm open repair is a surgery to fix an aortic aneurysm in the abdominal area.An aneurysm is a weak or damaged part of an artery wall that bulges out from the normal force of blood pumping through the body. An abdominal aortic aneurysm is an aneurysm that happens in the lower part of the aorta, which is the main artery of the body. Surgery is often done if there is a high risk that the aneurysm might burst (rupture). The bigger the aneurysm gets, the more chance there is that it will rupture. A ruptured aneurysm can cause bleeding inside the body that could put a person's life in danger. Before that happens, surgery is neededto fix the problem. Surgery may also be done if the aneurysm causes symptoms such as pain in the back, abdomen, or side. In abdominal aortic aneurysm open repair, a tube-shaped piece of man-made material (aortic graft) is placed in the damaged or weak part of the aorta to repair it. Tell a health care provider about: Any allergies you have. All medicines you are taking, including vitamins, herbs, eye drops, creams, and veqe-tar-kcxejmi medicines. Any problems you or family members have had with anesthetic medicines. Any blood disorders you have. Any surgeries you have had. Any medical conditions you have, including any recent symptoms of colds or infections. Whether you are or may be . What are the risks? Generally, this is a safe procedure. However, problems may occur, including: Infection. Bleeding. Allergic reactions to medicines. Lung problems. Intestine problems. Heart attack. Blood clots. Very low blood pressure. Kidney damage. Nerve damage that can cause pain or numbness in the leg. What happens before the procedure? Staying hydrated Follow instructions from your health care provider about hydration, which may include: Up to 2 hours before the procedure you may continue to drink clear liquids, such as water, clear fruit juice, black coffee, and plain tea. Eating and drinking restrictions Follow instructions from your health care provider about eating and drinking, which may include: 8 hours before the procedure stop eating heavy meals or foods such as meat, fried foods, or fatty foods. 6 hours before the procedure stop eating light meals or foods, such as toast or cereal. 6 hours before the procedure stop drinking milk or drinks that contain milk. 2 hours before the procedure stop drinking clear liquids. Medicines Ask your health care provider about: ? Changing or stopping your regular medicines. This is especially important if you are taking diabetes medicines or blood thinners. ? Taking medicines such as aspirin and ibuprofen. These medicines can thin your blood. Do not take these medicines before your procedure if your health care provider instructs you not to. You may be given antibiotic medicine to help prevent infection. You may be given medicine that causes you to have bowel movements. It is important to empty the intestines before this surgery. General instructions You may need to have blood tests, a test to check heart rhythm (electrocardiogram, or ECG), or a test to check blood flow (angiogram) before the surgery. Imaging tests will be done to check the size and location of the aneurysm. These tests could include an ultrasound, a CT scan, or an MRI. Do not use any products that contain nicotine or tobacco such as cigarettes and e-cigarettes for aslong as possible before the surgery. If you need help quitting, ask your health care provider. Ask your health care provider how your surgical site will be marked or identified. Plan to have someone take you home from the hospital or clinic. What happens during the procedure? To reduce your risk of infection: ? Your health care team will wash or sanitize their hands. ? Your skin will be washed with soap. ? Hair may be removed from the surgical area. An IV tube will be inserted into one of your veins. You will be given a medicine to make you fall asleep (general anesthetic). A thin tube (catheter) will be placed in your bladder to drain urine during and after surgery. A small tube (epidural catheter) may be placed into your lower spine. It will be used to give pain medicine during and after surgery. The surgeon will make an incision in your abdomen in the area of the aneurysm. Clamps will be put on the abdominal aorta. One will be put above the aneurysm, and one will be put below it. This will stop the blood flow. Next, the surgeon will open the aneurysm and then: ? Sew the graft to healthy parts of the aorta, right above and below the aneurysm. ? Wrap the verduzco of the open aneurysm around the graft. ? Sew the artery closed. The clamps will be removed. This will let the blood flow again. The incision will be closed using stitches (sutures) or shirley. It will then be covered with a bandage (dressing). The procedure may vary among health care providers and hospitals. What happens after the procedure? Your blood pressure, heart rate, breathing rate, and blood oxygen level will be monitored until themedicines you were given have worn off. Your IV access tube and urinary catheter will stay in place for a few days. They will be taken out once your body is doing its normal functions such as urinating. You may be given pain medicine through the epidural catheter for a few days. You might also have a tube that runs through your nose into the stomach to remove fluids. Once the intestines are working again, the tube in the nose will be taken out. This usually happens in 2 3 days. A number of tests may be done to check your condition and the repaired aorta. These might include X-rays, an ECG, or an ultrasound. You may be asked to cough and to do deep breathing exercises often. This helps keep you from getting a lung infection. You may have to wear compression stockings. These stockings help to prevent blood clots and reduce swelling in your legs. This information is not intended to replace advice given to you by your health care provider. Make sure you discuss any questions you have with your health care provider. Document Released: 01/26/2010 Document Revised: 01/20/2018 Document Reviewed: 05/03/2016 [employer] Patient Education 2020 [employer] Chronic Kidney Disease, Adult Chronic kidney disease (CKD) occurs when the kidneys become damaged slowly over a long period of time. The kidneys are a pair of organs that do many important jobs in the body, including: Removing waste and extra fluid from the blood to make urine. Making hormones that maintain the amount of fluid in tissues and blood vessels. Maintaining the right amount of fluids and chemicals in the body. A small amount of kidney damage may not cause problems, but a large amount of damage may make it hard or impossible for the kidneys to work the way they should. If steps are not taken to slow down kidney damage or to stop it from getting worse, the kidneys may stop working permanently (end-stage renal disease or ESRD). Most of the time, CKD does not go away, but it can often be controlled. Peoplewho have CKD are usually able to live normal lives. What are the causes? The most common causes of this condition are diabetes and high blood pressure (hypertension). Othercauses include: Heart and blood vessel (cardiovascular) disease. Kidney diseases, such as: ? Glomerulonephritis. ? Interstitial nephritis. ? Polycystic kidney disease. ? Renal vascular disease. Diseases that affect the immune system. Genetic diseases. Medicines that damage the kidneys, such as anti-inflammatory medicines. Being around or being in contact with poisonous (toxic) substances. A kidney or urinary infection that occurs again and again (recurs). Vasculitis. This is swelling or inflammation of the blood vessels. A problem with urine flow that may be caused by: ? Cancer. ? Having kidney stones more than one time. ? An enlarged prostate, in males. What increases the risk? You are more likely to develop this condition if you: Are older than age 60. Are female. Are -[place], , , , or . Are a current or former smoker. Are obese. Have a family history of kidney disease or failure. Often take medicines that are damaging to the kidneys. What are the signs or symptoms? Symptoms of this condition include: Swelling (edema) of the face, legs, ankles, or feet. Tiredness (lethargy) and having less energy. Nausea or vomiting. Confusion or trouble concentrating. Problems with urination, such as: ? Painful or burning feeling during urination. ? Decreased urine production. ? Frequent urination, especially at night. ? Bloody urine. Muscle twitches and cramps, especially in the legs. Shortness of breath. Weakness. Loss of appetite. Metallic taste in the mouth. Trouble sleeping. Dry, itchy skin. A low blood count (anemia). Pale lining of the eyelids and surface of the eye (conjunctiva). Symptoms develop slowly and may not be obvious until the kidney damage becomes severe. It is possible to have kidney disease for years without having any symptoms. How is this diagnosed? This condition may be diagnosed based on: Blood tests. Urine tests. Imaging tests, such as an ultrasound or CT scan. A test in which a sample of tissue is removed from the kidneys to be examined under a microscope (kidney biopsy). These test results will help your health care provider determine how serious the CKD is. How is this treated? There is no cure for most cases of this condition, but treatment usually relieves symptoms and prevents or slows the progression of the disease. Treatment may include: Making diet changes, which may require you to avoid alcohol, salty foods (sodium), and foods that are high in potassium, calcium, and protein. Medicines: ? To lower blood pressure. ? To control blood glucose. ? To relieve anemia. ? To relieve swelling. ? To protect your bones. ? To improve the balance of electrolytes in your blood. Removing toxic waste from the body through types of dialysis, if the kidneys can no longer do theirjob (kidney failure). Managing any other conditions that are causing your CKD or making it worse. Follow these instructions at home: Medicines Take ztzr-qen-jpybrai and prescription medicines only as told by your health care provider. The dose of some medicines that you take may need to be adjusted. Do not take any new medicines unless approved by your health care provider. Many medicines can worsen your kidney damage. Do not take any vitamin and mineral supplements unless approved by your health care provider. Many nutritional supplements can worsen your kidney damage. General instructions Follow your prescribed diet as told by your health care provider. Do not use any products that contain nicotine or tobacco, such as cigarettes and e-cigarettes. If you need help quitting, ask your health care provider. Monitor and track your blood pressure at home. Report changes in your blood pressure as told by your health care provider. If you are being treated for diabetes, monitor and track your blood sugar (blood glucose) levels astold by your health care provider. Maintain a healthy weight. If you need help with this, ask your health care provider. Start or continue an exercise plan. Exercise at least 30 minutes a day, 5 days a week. Keep your immunizations up to date as told by your health care provider. Keep all follow-up visits as told by your health care provider. This is important. Where to find more information [place] [employer]: www.aakp.org National Kidney Foundation: www.kidney.org [place] [employer]: www.akfinc.org [facility]: www.lifeoptions.org and www.kidneyschool.org Contact a health care provider if: Your symptoms get worse. You develop new symptoms. Get help right away if: You develop symptoms of ESRD, which include: ? Headaches. ? Numbness in the hands or feet. ? Easy bruising. ? Frequent hiccups. ? Chest pain. ? Shortness of breath. ? Lack of menstruation, in women. You have a fever. You have decreased urine production. You have pain or bleeding when you urinate. Summary Chronic kidney disease (CKD) occurs when the kidneys become damaged slowly over a long period of time. The most common causes of this condition are diabetes and high blood pressure (hypertension). There is no cure for most cases of this condition, but treatment usually relieves symptoms and prevents or slows the progression of the disease. Treatment may include a combination of medicines and lifestyle changes. This information is not intended to replace advice given to you by your health care provider. Make sure you discuss any questions you have with your health care provider. Document Released: 11/16/2008 Document Revised: 01/20/2018 Document Reviewed: 03/17/2017 [employer] Patient Education 2020 [employer]. Steps to Quit Smoking Smoking tobacco is the leading cause of preventable . It can affect almost every organ in the body. Smoking puts you and those around you at risk for developing many serious chronic diseases. Quitting smoking can be difficult, but it is one of the best things that you can do for your health. It is never too late to quit. How do I get ready to quit? When you decide to quit smoking, create a plan to help you succeed. Before you quit: Pick a date to quit. Set a date within the next 2 weeks to give you time to prepare. Write down the reasons why you are quitting. Keep this list in places where you will see it often. Tell your family, friends, and co-workers that you are quitting. Support from your loved ones can make quitting easier. Talk with your health care provider about your options for quitting smoking. Find out what treatment options are covered by your health insurance. Identify people, places, things, and activities that make you want to smoke (triggers). Avoid them. What first steps can I take to quit smoking? Throw away all cigarettes at home, at work, and in your car. Throw away smoking accessories, such as ashtrays and lighters. Clean your car. Make sure to empty the ashtray. Clean your home, including curtains and carpets. What strategies can I use to quit smoking? Talk with your health care provider about combining strategies, such as taking medicines while you are also receiving in-person counseling. Using these two strategies together makes you more likely to succeed in quitting than if you used either strategy on its own. If you are or , talk with your health care provider about finding counseling or other support strategies to quit smoking. Do not take medicine to help you quit smoking unless your health care provider tells you to do so. To quit smoking: Quit right away Quit smoking completely, instead of gradually reducing how much you smoke over a period of time. Research shows that stopping smoking right away is more successful than gradually quitting. Attend in-person counseling to help you build problem-solving skills. You are more likely to succeed in quitting if you attend counseling sessions regularly. Even short sessions of 10 minutes can be effective. Take medicine You may take medicines to help you quit smoking. Some medicines require a prescription and some youcan purchase zbax-deb-xtnjbph. Medicines may have nicotine in them to replace the nicotine in cigarettes. Medicines may: Help to stop cravings. Help to relieve withdrawal symptoms. Your health care provider may recommend: Nicotine patches, gum, or lozenges. Nicotine inhalers or sprays. Non-nicotine medicine that is taken by mouth. Find resources Find resources and support systems that can help you to quit smoking and remain smoke-free after you quit. These resources are most helpful when you use them often. They include: Online chats with a counselor. Telephone quitlines. Printed self-help materials. Support groups or group counseling. Text messaging programs. Mobile phone apps or applications. Use apps that can help you stick to your quit plan by providing reminders, tips, and encouragement. There are many free apps for mobile devices as well as websites.Examples include Quit Guide from the CDC and smokefree.gov What things can I do to make it easier to quit? Reach out to your family and friends for support and encouragement. Call telephone quitlines (3-978-SDOU-NOW), reach out to support groups, or work with a counselor for support. Ask people who smoke to avoid smoking around you. Avoid places that trigger you to smoke, such as bars, parties, or smoke-break areas at work. Spend time with people who do not smoke. Lessen the stress in your life. Stress can be a smoking trigger for some people. To lessen stress, try: ? Exercising regularly. ? Doing deep-breathing exercises. ? Doing yoga. ? Meditating. ? Performing a body scan. This involves closing your eyes, scanning your body from head to toe, and noticing which parts of your body are particularly tense. Try to relax the muscles in those areas. How will I feel when I quit smoking? Day 1 to 3 weeks Within the first 24 hours of quitting smoking, you may start to feel withdrawal symptoms. These symptoms are usually most noticeable 2 3 days after quitting, but they usually do not last for more than 2 3 weeks. You may experience these symptoms: Mood swings. Restlessness, anxiety, or irritability. Trouble concentrating. Dizziness. Strong cravings for sugary foods and nicotine. Mild weight gain. Constipation. Nausea. Coughing or a sore throat. Changes in how the medicines that you take for unrelated issues work in your body. Depression. Trouble sleeping (insomnia). Week 3 and afterward After the first 2 3 weeks of quitting, you may start to notice more positive results, such as: Improved sense of smell and taste. Decreased coughing and sore throat. Slower heart rate. Lower blood pressure. Clearer skin. The ability to breathe more easily. Fewer sick days. Quitting smoking can be very challenging. Do not get discouraged if you are not successful the first time. Some people need to make many attempts to quit before they achieve long-term success. Do your best to stick to your quit plan, and talk with your health care provider if you have any questionsor concerns. Summary Smoking tobacco is the leading cause of preventable . Quitting smoking is one of the best things that you can do for your health. When you decide to quit smoking, create a plan to help you succeed. Quit smoking right away, not slowly over a period of time. When you start quitting, seek help from your health care provider, family, or friends. This information is not intended to replace advice given to you by your health care provider. Make sure you discuss any questions you have with your health care provider. Document Released: 02/01/2002 Document Revised: 04/27/2019 Document Reviewed: 04/28/2019 [employer] Patient Education 2020 [employer]. Additional Information VACCINATE! IT SAVES LIVES! Members of the community who have not yet received the COVID-19 vaccine and would like to receive it can visit one of [facility] vaccine clinics. There are many vaccine clinic locations within the [facility]. For locations and available times, please visit [email or web address] It is important to note that some COVID mobile vaccine clinics are held outdoors and may be canceled in rainy or stormy conditions. To learn more about pediatric vaccinations (ages 5-11), we invite you to visit the [facility] webpage. [email or web address] learn more about the COVID-19 vaccine, we invite you to visit the CDC website for a list of frequently asked questions.https://www.cdc.gov/coronavirus/2019-ncov/vaccines/faq.html [employer] Patient Portal Access Instructions: Stay connected with your healthcare team and access your personal medical information anytime with the [employer] Patient Portal. Please follow the directions below to create your [employer] account: 1.Access the email account you provided upon registration to the hospital/physician office.2.Look for an invitation email from [facility].3.Open the email and access the invitation link: AcceptInvitation to [employer].4.Fill in the required sagastume to create your account. To access your account, visit [employer]. Click the blue button labeled Access Patient Portal and then log in with the username and password that you created in the steps above. You will be able to view your test results, lab results, a summary of your visits, upcoming appointments and more. There is also a convenient messaging option where you can send secure messages to your [employer]. In addition, you will have the ability to download any documents or summaries to your computer and/or send the information securely to a physician. Remember that your healthcare information is confidential, so carefully consider who you will allowto register on the [employer] Patient Portal for access to your information. You can also access the [employer] Patient Portal on the [facility] keisha. Simply click on Patient Portal and then log into your account. If you would like to receive a full copy of your medical records, please contact the [facility] Medical Records Department by calling [phone], Tuesday through Tuesday between 8 a.m. and 4:30 p.m. HOW TO SAFELY DISPOSE OF PRESCRIPTION MEDICATIONS Please use one of the following methods to safely dispose of your unused medications. 1.Use a drug disposal kit: the drug disposal pouch allows you to safely discard your old and unuseddrugs. Ask your nurse to give you one when you are discharged.2.Visit a local take-back location: Many local pharmacies and police departments have programs that collect old and unwanted prescriptiondrugs. Call your local pharmacy or go to [email or web address] to find one close to you.3.Make use of household items: Use cat litter or old coffee grounds to dispose medications if other options arenot available. Mix your drugs with these household products, seal them in an airtight container andthrow it into the garbage. Call [facility]: [phone] to be sure your drugs can be disposed of in this way. Some medicines may require a different approach.4.Never flush your medications down the toilet. IF YOU HAVE BEEN PRESCRIBED AN OPIOID FOR PAIN If you have been prescribed an opioid (such as hydrocodone, oxycodone or morphine), it is critical to understand the possible side effects and risks of opioid pain medications. Even when taken as directed, opioids can have several side effects including: Tolerance, meaning you might need to take more of a medication for the same pain relief. Nausea, vomiting and/or constipation. Sleepiness, dizziness, dry mouth, confusion, depression or itching. Physical dependence, meaning you have withdrawal symptoms when a medication is stopped, can develop within a few days. KNOW YOUR RESPONSIBILITIES It is important to know exactly how much and how often to take the opioid pain medications you are prescribed. Never take opioids in higher amounts or more often than prescribed. Do not combine opioids with alcohol or other drugs that cause drowsiness, such as benzodiazepines, also known as benzos, including diazepam and alprazolam, muscle relaxants or sleep aids. Never sell or share prescription opioids. This is illegal. Store opioids in a secure place and out of reach of others (including children, family, friends and visitors). The last page of this document has been signed and retained as a CHART COPY. Signatures Patient Education Materials Incision Care, Adult Abdominal Aortic Aneurysm Open Repair Chronic Kidney Disease, Adult Steps to Quit Smoking Medication Leaflets My discharge plan and instructions have been reviewed and explained to me and IABENA DOROTHY L understand my current condition and have read and understand these discharge instructions. I have received a written copy of the plan/instructions. If I have questions, I am aware that I should contact my doctor. Patient/Watermelon Inspector Signature: Date/Time: Relationship to Patient: Witness Name/Signature: Date/Time: [id number] Discharge summary Date of Service 02-24-2023 Discharge Diagnosis Juxtarenal abdominal aortic aneurysm, without rupture (I71.42 - ICD-10-CM) Unspecified combined systolic (congestive) and diastolic (congestive) heart failure (I50.40 - ICD-10-CM) Chronic kidney disease, stage 3b (N18.32 - ICD-10-CM) Eustachian tube dysfunction (H69.80 - ICD-10-CM) Hospital Course Patient underwent open aneurysm repair. She remained hemodynamically stable. Was in the ICU for 2 days and transferred to the floor. Was seen by pulmonary critical care assisted with improving her pulmonary status. Eventually was advancing diet and was ambulating well with good bowel function. Goodurine output. Hemoglobin labs remained stable. She was then cleared for discharge home Allergies aspirin (BLEED) Procedures 1. Open aneurysm repair Consults Consult to Case Management/Social Service (Consult to Case Management) - Ordered -- 02/27/23 14:44:14 EST Consult to Physician - Ordered -- 02/24/23 11:42:00 EST, DANITA PAPPAS MD, Routine, Patient is postop open aortic aneurysm repair Objective Vitals and Measurements T: 37.5 C (Oral) TMIN: 36.6 C (Oral) TMAX: 37.5 C (Oral) HR: 97(Monitored) RR: 18 BP: 156/70 SpO2: 90% Weight Dosing Weight: 61 kg (02/24/23) Patient is awake, alert No apparent distress Afebrile vital signs stable Lungs clear Heart appears regular Abdomen soft, distended Good signals noted Code Status No qualifying data available. Admission Date 02-24-2023 Discharge Date 02-28-2023 Medications New Prescription acetaminophen-hydrocodone ([place] 325- 5 mg oral tablet)1 tab(s) by mouth every 6 hours as needed Pain, scale 1-3. budesonide (Pulmicort Respules 0.5 mg/2 mL inhalation suspension)2 Milliliter by inhalation two (2)times a day. fluticasone/umeclidinium/vilanterol (Trelegy Ellipta 200 mcg-62.5 mcg-25 mcg/inh inhalation powder)1 puff(s) by inhalation once a day for 30 Days. at the same time every day. Refills: 2. Changed albuterol (Albuterol (Eqv-Ventolin HFA) 90 mcg/inh inhalation aerosol)2 puff(s) by inhalation every6 hours as needed Shortness of breath or wheezing for 30 Days. Refills: 3. albuterol (Ventolin HFA MDI (90 mcg/inh) inhalation aerosol)2 puff(s) by inhalation every 6 hours as needed as needed for wheezing. Unchanged acetaminophen (acetaminophen 500 mg oral tablet)1 tab(s) by mouth every 4 hours as needed as neededfor pain. acetaminophen-oxyCODONE (acetaminophen-oxyCODONE 325 mg-5 mg oral tablet)1.5 tab(s) by mouth two (2) times a day as needed as needed for pain. atorvastatin (atorvastatin 40 mg oral tablet)1 tab(s) by mouth daily at bedtime. Refills: 0. calcium carbonate (Oyster Shell Calcium 500 (1250 mg calcium carbonate) oral tablet)1 tab(s) by mouth once a day for 90 Days. with meals. with plenty of water. Refills: 1. carvedilol (carvedilol 6.25 mg oral tablet)1 tab(s) by mouth every day. docusate (docusate sodium 100 mg oral tablet)1 tab(s) by mouth two (2) times a day as needed as needed for constipation for 90 Days. with plenty of water. Refills: 1. famotidine (famotidine 20 mg oral tablet)1 tab(s) by mouth two (2) times a day as needed Reflux for90 Days. avoid eating and drinking for 10 minutes after each dose. Refills: 0. fluticasone nasal (Flonase 50 mcg/inh nasal spray)2 spray(s) each nostril once a day as needed as needed for allergy symptoms. Refills: 0. fluticasone-salmeterol (Advair Diskus 250 mcg-50 mcg inhalation powder)1 puff(s) by inhalation oncea day. isosorbide mononitrate (isosorbide mononitrate 30 mg oral tablet, extended release)1 tab(s) by mouth once a day. Refills: 3. levothyroxine (levothyroxine 75 mcg (0.075 mg) oral tablet)1 tab(s) by mouth once a day before a meal for 90 Days. as a single daily dose before breakfast. Refills: 3. loratadine (loratadine 10 mg oral tablet)1 tab(s) by mouth As Directed as needed as needed for allergy symptoms. mupirocin topical (mupirocin 2% topical ointment)1 application Topical two (2) times a day. Bilateral intranasal application twice daily x 5 days pre-surgery &/or as many days pre-surgery as possible.. Refills: 0. nystatin topical (nystatin 100,000 units/g topical cream)1 application Topical two (2) times a day as needed Rash for 30 Days. Apply to the affected area upper abdomen rash twice daily until healing complete.. Refills: 1. Follow Up Follow Up with IGGY DUNCAN When 03/16/2023 11:30 AM EST Where: [address] [facility] [address] [place] [address]- [phone] Follow Up with ROBERT SANDS MD, [facility], Surgery, Vascular Surgeons When Why: one month Where: [facility] [address] [place] [phone] Follow Up with EDY SALOMON DO When Why: PLEASE CALL THIS OFFICE TO SCHEDULE A HOSPITAL FOLLOW UP APPOINTMENT. Where: [address] [place] [address]- [phone] Discharge Diet Full liquid diet and advance to regular diet as tolerated Discharge Activity Increase walking 45 minutes daily, no lifting over 15 pounds 1 week Condition on Discharge Stable Readmission Risk/Palliative Score LACE Score: 8 (02/25/23 08:20:00) Discharge Disposition Home Digitally Signed by ROBERT SANDS MD on 02/28/2023 07:01 AM [id number] Vascular surgery Progress note Date of Service 02-28-2023 Subjective Patient postop day #4 open aneurysm repair. She is doing well. Bowels are working. Tolerating diet.Pain is improved up and ambulating well. Breathing also appears to be improved Objective Vitals and Measurements T: 37.5 C (Oral) TMIN: 36.6 C (Oral) TMAX: 37.5 C (Oral) HR: 97(Monitored) RR: 18 BP: 156/70 SpO2: 90% Intake and Output 7AM Yesterday to 7AM Today Intake and Output (Last 24 hours) Intake Oral Intake 240.00 Output Urine Voided 1200.00 Stool Count 1.00 Total Summary Total Intake 240.00 Total Output 1200.00 Fluid Balance -960.00 Physical Exam Patient is awake, alert No apparent distress Afebrile vital signs stable Abdomen soft, distended Moves all extremities well Good perfusion and signals noted Weight Dosing Weight: 61 kg (02/24/23) Medications Medications (24) Active Scheduled: (13) albuterol 0.083% Soln UD (2.5mg/3 mL) 2.5 mg 3 mL, Inhalation, QIDRT atorvastatin 40 mg tablet 40 mg 1 tab(s), Oral, qHS budesonide 0.5 mg/2 mL Susp UD 0.5 mg 2 mL, Inhalation, BIDRT calcium carbonate 1250 mg (500 mg calcium) tablet 1,250 mg 1 tab(s), Oral, qDay carvedilol 6.25 mg tablet 6.25 mg 1 tab(s), Oral, Daily docusate sodium 100 mg Capsule 100 mg 1 cap(s), Oral, BID enoxaparin 40 mg/ 0.4mL syringe 40 mg 0.4 mL, Subcutaneous, qDay famotidine 20 mg tablet 20 mg 1 tab(s), Oral, qDay heparin 10,000 unit(s) 1 mL, Miscellaneous, PREOP pharm isosorbide mononitrate 30 mg ER tablet 30 mg 1 tab(s), Oral, qDay levothyroxine 75 mcg tablet 75 mcg 1 tab(s), Oral, qDayAC mupirocin 2% Ointment 22 Gram(s) tube 1 keisha, Topical, BID No metformin for 48 hrs post contrast 1 EA, Miscellaneous, Unscheduled Continuous: (1) nitroglycerin 50 mg/250 mL D5W 50 mg [5 mcg/min] + Dextrose 5% Premix Diluent 250 mL 250 mL, Intravenous, 1.5 mL/hr PRN: (10) acetaminophen 325 mg Tablet 650 mg 2 tab(s), Oral, q4h acetaminophen-HYDROcodone 325-5 mg tablet 1 tab(s), Oral, q6h albuterol 0.083% Soln UD (2.5mg/3 mL) 2.5 mg 3 mL, Inhalation, q6hRT clotrimazole topical 1% Cream 1 keisha, Topical, BID dextrose 50% Solution Disp syringe 50 mL 12.5 gram(s) 25 mL, IV Push, AsDirected fluticasone nasal 0.05 mg/inh [place] 100 mcg 2 spray(s), Nostril, each, qDay morphine 2 mg/mL 1 mL syringe 1 mg 0.5 mL, IV Push, q3h morphine 2 mg/mL 1 mL syringe 2 mg 1 mL, IV Push, q3h nitroglycerin 0.4 mg Tablet (25/btl) 0.4 mg 1 tab(s), Sublingual, q5min ondansetron 2 mg/ 1 mL 2 mL INJ 4 mg 2 mL, IV Push, q6h Lab Results 02/27 04:04 WBC: 7.7 Hgb: 10.1 L Hgb: 10.1 L Hct: 28.8 L Hct: 30.0 L Platelet: 137 L Platelet: 136 L Neutrophil %: 79.8 H Protime: 12.2 PT International Ratio: 1.1 Glucose Level: 138 H Sodium Level: 139 Potassium Level: 3.9 BUN: 9.0 Creatinine Lvl (s): 0.72 EKG No qualifying data available. Assessment/Plan Eustachian tube dysfunction Orders: acetaminophen-hydrocodone, Dose = 1 tab(s), Oral, q6h, PRN Pain, scale 1-3, 0 Refill(s), 61 budesonide, Dose : 0.5 mg = 2 mL, Inhalation, BIDRT, 0 Refill(s) Ambulate Diet Order Diet Order Discharge Nutritional Supplement Order 2. Aortic aneurysm. Postop day #4. Cleared for discharge home today Digitally Signed by ROBERT SANDS MD on 02/28/2023 06:58 AM [facility] [id number] Vascular surgery Progress note Date of Service 02-27-2023 Subjective Patient is doing well. She is down to stepdown. She is out of bed ambulating. She is off oxygen onto room air. Tolerating diet well passing flatus. Still some abdominal discomfort but is concerned ifshe is not quite ready for discharge yet. Objective Vitals and Measurements T: 37.2 C (Oral) TMIN: 36.5 C (Oral) TMAX: 37.2 C (Oral) HR: 95(Monitored) RR: 16 BP: 140/85 BP: 163/83(Line) SpO2: 92% Intake and Output 7AM Yesterday to 7AM Today Intake and Output (Last 24 hours) Intake Oral Intake 1980.00 Administration Information 300.00 Output Urine Voided 3750.00 Urinary Catheter Output: 1700.00 Stool Count 0.00 Urine Count 2.00 Total Summary Total Intake 2280.00 Total Output 5450.00 Fluid Balance -3170.00 Physical Exam Awake, alert No apparent distress Afebrile vital signs stable Abdomen soft, distended Abdomen slightly tender Good perfusion lower extremities Weight Dosing Weight: 61 kg (02/24/23) Medications Medications (25) Active Scheduled: (13) albuterol 0.083% Soln UD (2.5mg/3 mL) 2.5 mg 3 mL, Inhalation, QIDRT atorvastatin 40 mg tablet 40 mg 1 tab(s), Oral, qHS budesonide 0.5 mg/2 mL Susp UD 0.5 mg 2 mL, Inhalation, BIDRT calcium carbonate 1250 mg (500 mg calcium) tablet 1,250 mg 1 tab(s), Oral, qDay carvedilol 6.25 mg tablet 6.25 mg 1 tab(s), Oral, Daily docusate sodium 100 mg Capsule 100 mg 1 cap(s), Oral, BID enoxaparin 40 mg/ 0.4mL syringe 40 mg 0.4 mL, Subcutaneous, qDay famotidine 20 mg tablet 20 mg 1 tab(s), Oral, qDay heparin 10,000 unit(s) 1 mL, Miscellaneous, PREOP pharm isosorbide mononitrate 30 mg ER tablet 30 mg 1 tab(s), Oral, qDay levothyroxine 75 mcg tablet 75 mcg 1 tab(s), Oral, qDayAC mupirocin 2% Ointment 22 Gram(s) tube 1 keisha, Topical, BID No metformin for 48 hrs post contrast 1 EA, Miscellaneous, Unscheduled Continuous: (2) D5/0.45%NACL + KCl 20 mEq/L 1,000 mL 1,000 mL, Intravenous, 100 mL/hr nitroglycerin 50 mg/250 mL D5W 50 mg [5 mcg/min] + Dextrose 5% Premix Diluent 250 mL 250 mL, Intravenous, 1.5 mL/hr PRN: (10) acetaminophen 325 mg Tablet 650 mg 2 tab(s), Oral, q4h acetaminophen-HYDROcodone 325-5 mg tablet 1 tab(s), Oral, q6h albuterol 0.083% Soln UD (2.5mg/3 mL) 2.5 mg 3 mL, Inhalation, q6hRT clotrimazole topical 1% Cream 1 keisha, Topical, BID dextrose 50% Solution Disp syringe 50 mL 12.5 gram(s) 25 mL, IV Push, AsDirected fluticasone nasal 0.05 mg/inh [place] 100 mcg 2 spray(s), Nostril, each, qDay morphine 2 mg/mL 1 mL syringe 1 mg 0.5 mL, IV Push, q3h morphine 2 mg/mL 1 mL syringe 2 mg 1 mL, IV Push, q3h nitroglycerin 0.4 mg Tablet (25/btl) 0.4 mg 1 tab(s), Sublingual, q5min ondansetron 2 mg/ 1 mL 2 mL INJ 4 mg 2 mL, IV Push, q6h Lab Results 02/27 04:04 WBC: 7.7 Hgb: 10.1 L Hgb: 10.1 L Hct: 30.0 L Hct: 28.8 L Platelet: 137 L Platelet: 136 L Neutrophil %: 79.8 H Protime: 12.2 PT International Ratio: 1.1 Glucose Level: 138 H Sodium Level: 139 Potassium Level: 3.9 BUN: 9.0 Creatinine Lvl (s): 0.72 02/26 12:29 Glucose Level: 122 H Sodium Level: 140 Potassium Level: 4.6 BUN: 12.0 Creatinine Lvl (s): 0.75 EKG No qualifying data available. Assessment/Plan Eustachian tube dysfunction Orders: acetaminophen-hydrocodone, Start: 02/26/23 12:09:00 EST, Dose = 1 tab(s), Tab, Oral, q6h, PRN, Pain, scale 1-3, 02/26/23 12:09:00 EST docusate, Start: 02/26/23 20:00:00 EST, Dose = 100 mg, = 1 cap(s), Oral, BID, 02/26/23 12:10:00 EST Bed Request - Transfer Consult to Physical Therapy Wheeled Walker Aortic aneurysm. Postop day #3 open repair. Will discharge later today or tomorrow. Increase walking and may feel better. Continue full liquid diet until bowel movements then will advance to regular diet. Will start protein drinks today 2. Appreciate pulmonary critical care input. Digitally Signed by ROBERT SANDS MD on 02/27/2023 10:21 AM [facility] [id number] Note Date of Service 02/27/2023 Subjective 82-year-old white female with past medical history of COPD and chronic smoking who presents to the hospital for elective surgery for enlarging abdominal aortic aneurysm since 04/16/2019. The patient was not a candidate for endovascular repair. She underwent open repair of AAA with endarterectomy andthrombectomy of the left iliac artery. Postoperatively, blood pressurewas slightly elevated was started on nitroglycerin drip currently at 30 mcg/min which has since been weaned off. The patient has a history of heavy smoking since she was 17 years old. She had quit smoking and currently she vapes.She has history of COPD and history of use of Advair at home. In 2019 CT of the chest suggested bilateral pulm nodules. I do not see a follow-up since then. She has history of heart failure and moderate coronary artery disease per heart catheterization from 03/26/2019. She has chronic kidney disease and of course peripheral arterial disease and steatohepatitis. Over the last [address] of the chest was performed shows lung nodules that this essentially are stable in addition to pulmonary emphysema. She is discharged out of the ICU to stepdown. Objective Vitals and Measurements T: 37.2 C (Oral) TMIN: 36.5 C (Oral) TMAX: 37.2 C (Oral) HR: 95(Monitored) RR: 16 BP: 140/85 BP: 163/83(Line) SpO2: 92% Physical Exam General: Alert oriented 3 not in any apparent distress. HEENT: PERRLA EOMI. triple-lumen catheter in place on the right side and Lungs decreased air entry bilaterally no crackles or wheezing. Cardiovascular S1-S2. Abdomen soft nondistended no tenderness. Lower extremity no edema Weight Dosing Weight: 61 kg (02/24/23) Medications Medications (25) Active Scheduled: (13) albuterol 0.083% Soln UD (2.5mg/3 mL) 2.5 mg 3 mL, Inhalation, QIDRT atorvastatin 40 mg tablet 40 mg 1 tab(s), Oral, qHS budesonide 0.5 mg/2 mL Susp UD 0.5 mg 2 mL, Inhalation, BIDRT calcium carbonate 1250 mg (500 mg calcium) tablet 1,250 mg 1 tab(s), Oral, qDay carvedilol 6.25 mg tablet 6.25 mg 1 tab(s), Oral, Daily docusate sodium 100 mg Capsule 100 mg 1 cap(s), Oral, BID enoxaparin 40 mg/ 0.4mL syringe 40 mg 0.4 mL, Subcutaneous, qDay famotidine 20 mg tablet 20 mg 1 tab(s), Oral, qDay heparin 10,000 unit(s) 1 mL, Miscellaneous, PREOP pharm isosorbide mononitrate 30 mg ER tablet 30 mg 1 tab(s), Oral, qDay levothyroxine 75 mcg tablet 75 mcg 1 tab(s), Oral, qDayAC mupirocin 2% Ointment 22 Gram(s) tube 1 keisha, Topical, BID No metformin for 48 hrs post contrast 1 EA, Miscellaneous, Unscheduled Continuous: (2) D5/0.45%NACL + KCl 20 mEq/L 1,000 mL 1,000 mL, Intravenous, 100 mL/hr nitroglycerin 50 mg/250 mL D5W 50 mg [5 mcg/min] + Dextrose 5% Premix Diluent 250 mL 250 mL, Intravenous, 1.5 mL/hr PRN: (10) acetaminophen 325 mg Tablet 650 mg 2 tab(s), Oral, q4h acetaminophen-HYDROcodone 325-5 mg tablet 1 tab(s), Oral, q6h albuterol 0.083% Soln UD (2.5mg/3 mL) 2.5 mg 3 mL, Inhalation, q6hRT clotrimazole topical 1% Cream 1 keisha, Topical, BID dextrose 50% Solution Disp syringe 50 mL 12.5 gram(s) 25 mL, IV Push, AsDirected fluticasone nasal 0.05 mg/inh [place] 100 mcg 2 spray(s), Nostril, each, qDay morphine 2 mg/mL 1 mL syringe 1 mg 0.5 mL, IV Push, q3h morphine 2 mg/mL 1 mL syringe 2 mg 1 mL, IV Push, q3h nitroglycerin 0.4 mg Tablet (25/btl) 0.4 mg 1 tab(s), Sublingual, q5min ondansetron 2 mg/ 1 mL 2 mL INJ 4 mg 2 mL, IV Push, q6h Lab Results 02/27 04:04 WBC: 7.7 Hgb: 10.1 L Hgb: 10.1 L Hct: 30.0 L Hct: 28.8 L Platelet: 137 L Platelet: 136 L Neutrophil %: 79.8 H Protime: 12.2 PT International Ratio: 1.1 Glucose Level: 138 H Sodium Level: 139 Potassium Level: 3.9 BUN: 9.0 Creatinine Lvl (s): 0.72 02/26 12:29 Glucose Level: 122 H Sodium Level: 140 Potassium Level: 4.6 BUN: 12.0 Creatinine Lvl (s): 0.75 Imaging Results and [address] CT Thorax w/o Contrast Result Date: February 27, 2023 Verified By: LAUREEN CUMMINGS MD CLINICAL STATEMENT: IMPRESSION: 1. Emphysema and areas of scarring. Scattered ill-defined nodular densitiesare stable since the prior exam and are therefore considered benign.2. Trace right and small left pleural effusions with minimal adjacentatelectasis.3. No other acute finding. Abdominal free air is presumably postoperative asdiscussed above. XR Chest 1 View Result Date: February 24, 2023 Verified By: TRAE CLEARY MD CLINICAL STATEMENT: IMPRESSION: Emphysematous changes with coarse interstitial markings particularly in theupper lobes stable from prior exam. Previously identified pulmonary nodules are poorly evaluated on this study. Support devices as above. Preliminary Report was Dictated by a Resident I have personally r eviewed all of the images of this examination and agreewith the resident findings and interpretation. EKG No qualifying data available. Assessment/Plan 1. Day #3 s/p open repair of AAA with endarterectomy and thrombectomy of left iliac artery 2. Underlying history of COPD and heavy smoking. Recently vaping. No acute exacerbation 3. History of prior lung nodules 4. Other complicating morbidities including CHF, moderate CAD, CKD and PAD Recommendations: 1. Wean the patient off oxygen she is tolerating that well. Is longer oxygen saturation is adequateshe can be discharged off oxygen. She will follow-up with pulmonary in 4 weeks. 2. Continue albuterol 4 times daily and budesonide twice daily via aerosols 3. incentive spirometry 4. Trelegy once daily on discharge in addition to albuterol as needed. Counseled her against vaping. Digitally Signed by LUCIAN MCKEON MD on 02/27/2023 09:45 AM [facility] [id number] Note ORIGINAL EXAMINATION: CT OF THE CHEST WITHOUT CONTRAST 02/27/2023 8:37 am TECHNIQUE: CT of the chest was performed without the administration of intravenous contrast. Multiplanar reformatted images are provided for review. Automated exposure control, iterative reconstruction, and/or weight based adjustment of the mA/kV was utilized to reduce the radiation dose to as low as reasonably achievable. COMPARISON: May 23, 2019 HISTORY: ORDERING SYSTEM PROVIDED HISTORY: Reason for Exam: SOB AT TIMES NO OTHER COMPLAINTS pulmonary nodules FINDINGS: Minor degenerative changes are noted in the spine. No acute osseous abnormality is identified. Trace right and small left pleural effusions are present with some adjacent compressive atelectasis. These findings are new since the previous exam. Emphysema is evident and there are scattered areas of pulmonary and pleural scarring seen. Subcentimeter ill-defined scattered nodular densities are identified, and the findings are not significantly different than on the previous study. No new or enlarging nodule is identified. No focal area of airspace consolidation is otherwise evident. Focal dilatation of the thoracic aorta at the arch laterally is evident, a stable finding since the previous exam. No definite mediastinal adenopathy within the constraints of a noncontrast exam. Small amount of pericardial fluid noted. Pneumoperitoneum is evident. Technologist worksheet indicates that the patient is status post abdominal aortic aneurysm repair and the free air may be on that basis. No additional contributory abnormality identified. IMPRESSION: 1. Emphysema and areas of scarring. Scattered ill-defined nodular densities are stable since the prior exam and are therefore considered benign. 2. Trace right and small left pleural effusions with minimal adjacent atelectasis. 3. No other acute finding. Abdominal free air is presumably postoperative as discussed above. Interpreted by: Laureen Cummings MD Preliminary Report By: Laureen Cummings MD Electronically signed By Laureen Cummings MD Dictated Date: 02/27/2023 8:41:45 AM Prelim Date: 02/27/2023 8:46:56 AM Sign Date: 02/27/2023 8:46:56 AM Ordering Provider: [facility]01[facility]24 Vascular surgery Progress note Date of Service 02-26-2023 Chief Complaint Aortic aneurysm repair Subjective Patient is postop day #2 from open aneurysm repair. She is doing well. Hemodynamic stable. Tolerating liquids. Up in chair. Off all drips. Is set to be transferred out to the floor. Will increase walking, pain is adequately controlled Objective Vitals and Measurements T: 37.1 C (Oral) TMIN: 37 C (Oral) TMAX: 37.3 C (Oral) HR: 88(Monitored) RR: 16 BP: 154/94 BP: 158/69(Line) SpO2: 90% Intake and Output 7AM Yesterday to 7AM Today Intake and Output (Last 24 hours) Intake Free Water: 60.00 Administration Information 757.43 Oral Intake 1900.00 Output Urinary Catheter Output: 4400.00 Total Summary Total Intake 2717.43 Total Output 4400.00 Fluid Balance -1682.57 Physical Exam Patient is awake, alert No apparent distress, moderate abdominal discomfort Afebrile vital signs stable HEENT: Normocephalic atraumatic pupils equal Lungs clear Abdomen soft, distended, tender Good perfusion both lower extremities Weight Dosing Weight: 61 kg (02/24/23) Medications Medications (26) Active Scheduled: (13) albuterol 0.083% Soln UD (2.5mg/3 mL) 2.5 mg 3 mL, Inhalation, QIDRT atorvastatin 40 mg tablet 40 mg 1 tab(s), Oral, qHS budesonide 0.5 mg/2 mL Susp UD 0.5 mg 2 mL, Inhalation, BIDRT calcium carbonate 1250 mg (500 mg calcium) tablet 1,250 mg 1 tab(s), Oral, qDay carvedilol 6.25 mg tablet 6.25 mg 1 tab(s), Oral, Daily enoxaparin 40 mg/ 0.4mL syringe 40 mg 0.4 mL, Subcutaneous, qDay famotidine 20 mg tablet 20 mg 1 tab(s), Oral, qDay heparin 10,000 unit(s) 1 mL, Miscellaneous, PREOP pharm isosorbide mononitrate 30 mg ER tablet 30 mg 1 tab(s), Oral, qDay ketorolac 15 mg/mL vial 15 mg 1 mL, IV Push, q6h levothyroxine 75 mcg tablet 75 mcg 1 tab(s), Oral, qDayAC mupirocin 2% Ointment 22 Gram(s) tube 1 keisha, Topical, BID No metformin for 48 hrs post contrast 1 EA, Miscellaneous, Unscheduled Continuous: (2) D5/0.45%NACL + KCl 20 mEq/L 1,000 mL 1,000 mL, Intravenous, 100 mL/hr nitroglycerin 50 mg/250 mL D5W 50 mg [5 mcg/min] + Dextrose 5% Premix Diluent 250 mL 250 mL, Intravenous, 1.5 mL/hr PRN: (11) acetaminophen 325 mg Tablet 650 mg 2 tab(s), Oral, q4h acetaminophen-HYDROcodone 325-5 mg tablet 1 tab(s), Oral, q6h albuterol 0.083% Soln UD (2.5mg/3 mL) 2.5 mg 3 mL, Inhalation, q6hRT clotrimazole topical 1% Cream 1 keisha, Topical, BID dextrose 50% Solution Disp syringe 50 mL 12.5 gram(s) 25 mL, IV Push, AsDirected docusate sodium 100 mg Capsule 100 mg 1 cap(s), Oral, BID fluticasone nasal 0.05 mg/inh [place] 100 mcg 2 spray(s), Nostril, each, qDay morphine 2 mg/mL 1 mL syringe 1 mg 0.5 mL, IV Push, q3h morphine 2 mg/mL 1 mL syringe 2 mg 1 mL, IV Push, q3h nitroglycerin 0.4 mg Tablet (25/btl) 0.4 mg 1 tab(s), Sublingual, q5min ondansetron 2 mg/ 1 mL 2 mL INJ 4 mg 2 mL, IV Push, q6h Lab Results 02/25 04:05 WBC: 9.9 Hgb: 10.4 L Hct: 30.0 L Platelet: 139 L Neutrophil %: 86.0 H Protime: 12.6 PT International Ratio: 1.1 Glucose Level: 217 H Sodium Level: 139 Potassium Level: 4.4 BUN: 16.0 Creatinine Lvl (s): 0.88 02/25 00:23 Hgb: 10.5 L Hct: 30.4 L Platelet: 120 L Protime: 12.3 PT International Ratio: 1.1 EKG No qualifying data available. Assessment/Plan Eustachian tube dysfunction Orders: acetaminophen-hydrocodone, Start: 02/26/23 12:09:00 EST, Dose = 1 tab(s), Tab, Oral, q6h, PRN, Pain, scale 1-3, 02/26/23 12:09:00 EST Basic Metabolic Panel Complete Blood Count Consult to Physical Therapy Diet Order Discontinue Order 2. Aortic aneurysm. Postop day #2. Transfer to floor. Increase walking. Continue liquids. Transition oral pain meds. Anticipate discharge possibly tomorrow afternoon. Continue workup and treatment with pulmonary Digitally Signed by ROBERT SANDS MD on 02/26/2023 12:12 PM [id number] Note Date of Service 02/26/2023 Subjective 82-year-old white female with past medical history of COPD and chronic smoking who presents to the hospital for elective surgery for enlarging abdominal aortic aneurysm since 04/16/2019. The patient was not a candidate for endovascular repair. She underwent open repair of AAA with endarterectomy andthrombectomy of the left iliac artery. Postoperatively, blood pressurewas slightly elevated was started on nitroglycerin drip currently at 30 mcg/min which has since been weaned off. The patient has a history of heavy smoking since she was 17 years old. She had quit smoking and currently she vapes. She has history of COPD and history of use of Advair at home. In 2019 CT of the chest suggested bilateral pulm nodules. I do not see a follow-up since then. She has history of heart failure and moderate coronary artery disease per heart catheterization from 03/26/2019. She has chronic kidney disease and of course peripheral arterial disease and steatohepatitis. Objective Vitals and Measurements T: 37.1 C (Oral) TMIN: 36.8 C (Oral) TMAX: 37.3 C (Oral) HR: 80(Monitored) RR: 18 BP: 109/58 BP: 139/59(Line) SpO2: 92% Physical Exam 82-year-old female who does not appear to be in acute distress. She gets painful in her belly with moving around. Alert and oriented x 3. Nasal oxygen and NG tube in place. Chest is symmetrical lungsare diminished bilaterally. Heart is regular with a systolic ejection murmur. Abdomen is tender postoperatively. Extremities show no edema clubbing or cyanosis or rash. Warm bilaterally. Neurologically nonfocal. Weight Dosing Weight: 61 kg (02/24/23) Medications Medications (25) Active Scheduled: (13) albuterol 0.083% Soln UD (2.5mg/3 mL) 2.5 mg 3 mL, Inhalation, QIDRT atorvastatin 40 mg tablet 40 mg 1 tab(s), Oral, qHS budesonide 0.5 mg/2 mL Susp UD 0.5 mg 2 mL, Inhalation, BIDRT calcium carbonate 1250 mg (500 mg calcium) tablet 1,250 mg 1 tab(s), Oral, qDay carvedilol 6.25 mg tablet 6.25 mg 1 tab(s), Oral, Daily enoxaparin 40 mg/ 0.4mL syringe 40 mg 0.4 mL, Subcutaneous, qDay famotidine 20 mg tablet 20 mg 1 tab(s), Oral, qDay heparin 10,000 unit(s) 1 mL, Miscellaneous, PREOP pharm isosorbide mononitrate 30 mg ER tablet 30 mg 1 tab(s), Oral, qDay ketorolac 15 mg/mL vial 15 mg 1 mL, IV Push, q6h levothyroxine 75 mcg tablet 75 mcg 1 tab(s), Oral, qDayAC mupirocin 2% Ointment 22 Gram(s) tube 1 keisha, Topical, BID No metformin for 48 hrs post contrast 1 EA, Miscellaneous, Unscheduled Continuous: (2) D5/0.45%NACL + KCl 20 mEq/L 1,000 mL 1,000 mL, Intravenous, 100 mL/hr nitroglycerin 50 mg/250 mL D5W 50 mg [5 mcg/min] + Dextrose 5% Premix Diluent 250 mL 250 mL, Intravenous, 1.5 mL/hr PRN: (10) acetaminophen 325 mg Tablet 650 mg 2 tab(s), Oral, q4h albuterol 0.083% Soln UD (2.5mg/3 mL) 2.5 mg 3 mL, Inhalation, q6hRT clotrimazole topical 1% Cream 1 keisha, Topical, BID dextrose 50% Solution Disp syringe 50 mL 12.5 gram(s) 25 mL, IV Push, AsDirected docusate sodium 100 mg Capsule 100 mg 1 cap(s), Oral, BID fluticasone nasal 0.05 mg/inh [place] 100 mcg 2 spray(s), Nostril, each, qDay morphine 2 mg/mL 1 mL syringe 1 mg 0.5 mL, IV Push, q3h morphine 2 mg/mL 1 mL syringe 2 mg 1 mL, IV Push, q3h nitroglycerin 0.4 mg Tablet (25/btl) 0.4 mg 1 tab(s), Sublingual, q5min ondansetron 2 mg/ 1 mL 2 mL INJ 4 mg 2 mL, IV Push, q6h Lab Results 02/25 04:05 WBC: 9.9 Hgb: 10.4 L Hct: 30.0 L Platelet: 139 L Neutrophil %: 86.0 H Protime: 12.6 PT International Ratio: 1.1 Glucose Level: 217 H Sodium Level: 139 Potassium Level: 4.4 BUN: 16.0 Creatinine Lvl (s): 0.88 02/25 00:23 Hgb: 10.5 L Hct: 30.4 L Platelet: 120 L Protime: 12.3 PT International Ratio: 1.1 02/24 22:15 Hgb: 10.9 L Hct: 31.7 L Platelet: 121 L Protime: 12.4 PT International Ratio: 1.1 Imaging Results and Diagnostics XR Chest 1 View Result Date: February 24, 2023 Verified By: TRAE CLEARY MD CLINICAL STATEMENT: IMPRESSION: Emphysematous changes with coarse interstitial markings particularly in theupper lobes stable from prior exam. Previously identified pulmonary nodules are poorly evaluated on this study. Support devices as above. Preliminary Report was Dictated by a Resident I have personally r eviewed all of the images of this examination and agreewith the resident findings and interpretation. EKG No qualifying data available. Assessment/Plan 1. Day #2 s/p open repair of AAA with endarterectomy and thrombectomy of left iliac artery 2. Underlying history of COPD and heavy smoking. Recently vaping. No acute exacerbation 3. History of prior lung nodules 4. Other complicating morbidities including CHF, moderate CAD, CKD and PAD Recommendations: 1. Continue nasal oxygen 2. Continue albuterol 4 times daily and budesonide twice daily via aerosols 3. incentive spirometry 4. Will be difficult to obtain a high-resolution CAT scan but the patient prone at this point so wewill order a CT without contrast and follow-up as an outpatient for possible high-resolution CAT scan if needed 5. Continue GI and DVT prophylaxis Digitally Signed by LUCIAN MCKEON MD on 02/26/2023 09:31 AM [id number] Critical care medicine Consult note Date of Service 02/25/2023 Reason for Consultation Critical care management Referring Physician Dr. Robert Sands History of Present Illness Patient is a pleasant 82-year-old white female with past medical history of COPD and chronic smoking who presents to the hospital for elective surgery for enlarging abdominal aortic aneurysm since 04/16/2019. The patient was not a candidate for endovascular repair. She underwent open repair of AAA with endarterectomy and thrombectomy of the left iliac artery. Postoperatively, blood pressure is still slightly elevated so she is maintained on nitroglycerin drip currently at 30 mcg/min. Mild abdominal pain remains. We are consulted to follow patient postoperatively. The patient has a history of heavy smoking since she was 17 years old. She had quit smoking and currently she vapes. She has history of COPD and history of use of Advair at home. In 2019 CT of the chest suggested bilateral pulm nodules. I do not see a follow-up since then. She has history of heart failure and moderate coronary artery disease per heart catheterization from 03/26/2019. She has chronic kidney disease and of course peripheral arterial disease and steatohepatitis. Review of Systems Mild shortness of breath with exertion at baseline. Not much coughing or wheezing. No abdominal pain or nausea or vomiting leg swelling. Physical Exam Vitals and Measurements T: 36.8 C (Oral) TMIN: 35.64 C TMAX: 37.0 C (Oral) HR: 81(Monitored) RR: 16 BP: 124/49 BP: 136/62(Line) SpO2: 98% Weight Dosing Weight: 61 kg (02/24/23) Pleasant 82-year-old female who does not appear to be in acute distress. She gets painful in her belly with moving around. Alert and oriented x 3. Nasal oxygen and NG tube in place. Chest is symmetrical lungs are diminished bilaterally. Heart is regular with a systolic ejection murmur. Abdomen is tender postoperatively. Extremities show no edema clubbing or cyanosis or rash. Warm bilaterally. Neurologically nonfocal. Lab Results 02/25 04:05 WBC: 9.9 Hgb: 10.4 L Hct: 30.0 L Platelet: 139 L Neutrophil %: 86.0 H Protime: 12.6 PT International Ratio: 1.1 Glucose Level: 217 H Sodium Level: 139 Potassium Level: 4.4 BUN: 16.0 Creatinine Lvl (s): 0.88 02/25 00:23 Hgb: 10.5 L Hct: 30.4 L Platelet: 120 L Protime: 12.3 PT International Ratio: 1.1 Imaging Results and Diagnostics Chest x-ray shows increase in stational markings and APCs with hyperinflation. Not much different than 2019. Chest CT was reviewed from 2020. It showed centrilobular emphysema scattered throughout both lungs in addition to nonspecific nodularities bilaterally that is quite small and could be scars. Assessment/Plan 1. Day #1 s/p open repair of AAA with endarterectomy and thrombectomy of left iliac artery 2. Underlying history of COPD and heavy smoking. Recently vaping. No acute exacerbation 3. History of prior lung nodules 4. Other complicating morbidities including CHF, moderate CAD, CKD and PAD Recommendations: 1. Continue nasal oxygen 2. Continue albuterol 4 times daily and budesonide twice daily via aerosols 3. Start incentive spirometry aggressively 4. Will need a high-resolution CT chest before discharge to reevaluate lung parenchyma nodules 5. Continue GI and DVT prophylaxis 6. On nitroglycerin drip. Continue per surgery for now Will continue to follow Problem List/Past Medical History Ongoing Abdominal aortic aneurysm greater than 39 mm in diameter Abnormal EKG Allergic rhinitis Aortic atherosclerosis Aortic valve calcification Aortic valve regurgitation Arterial insufficiency of lower extremity Bilateral hip joint arthritis Bilateral hip pain 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 CHF (CONGESTIVE HEART FAILURE) Chronic kidney disease, stage 3b Combined systolic and diastolic heart failure Constipation COPD - Chronic obstructive pulmonary disease DIMINISHED PULSES IN LOWER EXTREMITY Dizziness Elevated serum protein level Emphysema of lung Full code status GERD - Gastro-esophageal reflux disease Hepatic steatosis Hepatomegaly Hepatomegaly, not elsewhere classified Hilar lymphadenopathy Hip pain History of acute respiratory failure History of pneumonia Hyperbilirubinemia Hyperlipidemia Hypermagnesemia Hypernatremia Hyperphosphatemia Hypertension goal BP (blood pressure) < 140/90 Hypocalcemia Hypothyroidism Intermittent claudication Intertrigo Left shoulder pain Lesion of ear canal Low back pain Low bone density Lung nodule, multiple LV dysfunction Macrocytic anemia Mild persistent asthma, uncomplicated Mitral valve regurgitation Mixed incontinence Moderate scoliosis Neuropathy Nicotine vapor product user Onychomycosis of toenail Opacity of lung on imaging study Osteoarthritis of facet joint of lumbar spine Osteonecrosis of left hip Osteoporosis Overactive bladder Post-menopausal Pulmonary embolism Pulmonary fibrosis Pulmonary nodule PVD (peripheral vascular disease) Renal cyst Restless legs syndrome Scoliosis of lumbar spine Staphylococcus epidermidis infection Systolic ejection murmur Tobacco use Urinary incontinence Vitamin D deficiency Historical Iron deficiency anemia Thrombocytopenia Wound of left lower extremity Procedure/Surgical History Cardiac catheterization: 03/26/19 Breast biopsy sample: 2008 Colonoscopy: 2008 Thyroidectomy Bronchoscopy Medications Inpatient albuterol 2.5 mg/3 mL (0.083%) inhalation solution, 2.5 mg= 3 mL, Inhalation, QIDRT albuterol 2.5 mg/3 mL (0.083%) inhalation solution, 2.5 mg= 3 mL, Inhalation, q6hRT, PRN atorvastatin, 40 mg= 1 tab(s), Oral, qHS calcium carbonate, 1250 mg= 1 tab(s), Oral, qDay carvedilol 6.25 mg oral tablet, 6.25 mg= 1 tab(s), Oral, Daily clotrimazole 1% topical cream, 1 keisha, Topical, BID, PRN D51/2NS + KCL 20 mEq/L 1,000 mL, 1000 mL, Intravenous Dextrose 50% IV Push, 12.5 gram(s)= 25 mL, IV Push, AsDirected, PRN docusate, 100 mg= 1 cap(s), Oral, BID, PRN Flonase 50 mcg/inh nasal spray, 100 mcg= 2 spray(s), Nostril, each, qDay, PRN Heparin 10,000 units/mL isosorbide mononitrate 30 mg oral tablet, extended release, 30 mg= 1 tab(s), Oral, qDay levothyroxine, 75 mcg= 1 tab(s), Oral, qDayAC Lovenox, 40 mg= 0.4 mL, Subcutaneous, qDay morphine, 1 mg= 0.5 mL, IV Push, q3h, PRN morphine, 2 mg= 1 mL, IV Push, q3h, PRN mupirocin 2% topical ointment, 1 keisha, Topical, BID nitroGLYcerin for IV 50 mg [5 mcg/min] + Dextrose Premix titrate 250 mL Nitrostat, 0.4 mg= 1 tab(s), Sublingual, q5min, PRN NO METFORMIN (Glucophage) X 48hrs-patient has received contrast, 1 EA, Miscellaneous, Unscheduled Pepcid, 20 mg= 1 tab(s), Oral, qDay Pulmicort Respules 0.5 mg/2 mL inhalation suspension, 0.5 mg= 2 mL, Inhalation, BIDRT Toradol, 15 mg= 1 mL, IV Push, q6h Tylenol, 650 mg= 2 tab(s), Oral, q4h, PRN Zofran, 4 mg= 2 mL, IV Push, q6h, PRN Home acetaminophen 500 mg oral tablet, 500 mg= 1 tab(s), Oral, q4h, PRN acetaminophen-oxyCODONE 325 mg-5 mg oral tablet, 1.5 tab(s), Oral, BID, PRN Advair Diskus 250 mcg-50 mcg inhalation powder, 1 puff(s), Inhalation, qDay atorvastatin 40 mg oral tablet, 40 mg= 1 tab(s), Oral, qHS carvedilol 6.25 mg oral tablet, 6.25 mg= 1 tab(s), Oral, Daily docusate sodium 100 mg oral tablet, 100 mg= 1 tab(s), Oral, BID, PRN, 1 refills famotidine 20 mg oral tablet, 20 mg= 1 tab(s), Oral, BID, PRN Flonase 50 mcg/inh nasal spray, 2 spray(s), Nostril, each, qDay, PRN isosorbide mononitrate 30 mg oral tablet, extended release, 1 tab(s), Oral, qDay, 3 refills levothyroxine 75 mcg (0.075 mg) oral tablet, 75 mcg= 1 tab(s), Oral, qDayAC, 3 refills loratadine 10 mg oral tablet, 10 mg= 1 tab(s), Oral, AsDirected, PRN mupirocin 2% topical ointment, 1 keisha, Topical, BID nystatin 100,000 units/g topical cream, 1 keisha, Topical, BID, PRN, 1 refills Oyster Shell Calcium 500 (1250 mg calcium carbonate) oral tablet, 1250 mg= 1 tab(s), Oral, qDay, 1 refills Ventolin HFA MDI (90 mcg/inh) inhalation aerosol, 2 puff(s), Inhalation, q6hr, PRN Allergies aspirin (BLEED) Social History Alcohol Use: Never., 02/01/2019 Home/Environment Domestic Concerns: Denies., 02/22/2023 Nutrition/Health Caffeine intake amount: 1-2 servings/day., 02/26/2021 Substance Abuse Use: Never., 02/01/2019 Tobacco Nicotine Use: Vaping Product in Last 90 Days, QUIT SMOKING IN 2019, CURRENTLY VAPES DAILY. Type: Electronic Cigarettes (Vaping). Started at age: 17 Years., 02/22/2023 Family History COPD - Chronic obstructive pulmonary disease: Father. Cancer: Mother and Father. Immunizations pneumococcal 13-valent conjugate vaccine: 0 unknown unit (01/10/19) pneumococcal 13-valent conjugate vaccine: 0 unknown unit (11/21/18) pneumococcal 13-valent conjugate vaccine: 0 unknown unit (11/20/18) pneumococcal 23-valent vaccine(Pneumovax: 0 unknown unit (10/31/12) SARS-CoV-2 (COVID-19) mRNA-1273 vaccine: 50 mcg (02/26/21) SARS-CoV-2 (COVID-19) mRNA-1273 vaccine: 0 unknown unit (06/30/20) SARS-CoV-2 (COVID-19) mRNA-1273 vaccine: 0 unknown unit (06/02/20) tetanus/diphth/pertuss (Tdap) adult/adol: 0.5 mL (02/01/19) Digitally Signed by NHAN ROTH MD on 02/25/2023 01:53 PM [id number] Note ORIGINAL EXAMINATION: ONE XRAY VIEW OF THE CHEST02/24/2023 4:20 pm COMPARISON: Chest x-ray 02/26/2019, CT chest 05/23/2019 HISTORY: ORDERING SYSTEM PROVIDED HISTORY: Reason for Exam: Abnormal Breath Sounds FINDINGS: Right-sided central venous catheter tip terminates over the superior cavoatrial junction. An enteric tube crosses the diaphragm a midline with tip not included within the field of view. Bilateral emphysematous changes again noted. Coarse interstitial markings seen bilaterally however not significantly changed from the prior examination.. Projecting over the right heart border, partially obscured by overlying EKG lead, is a nodular opacity correlating with the previously seen nodule on the 05/23/2019 study. Other nodules described previously are poorly evaluated on this study. No pleural effusion or visible pneumothorax. Ectatic and calcified aortic arch. IMPRESSION: Emphysematous changes with coarse interstitial markings particularly in the upper lobes stable from prior exam. Previously identified pulmonary nodules are poorly evaluated on this study. Support devices as above. Preliminary Report was Dictated by a Resident I have personally reviewed all of the images of this examination and agree with the resident findings and interpretation. Interpreted by: Trae Cleary MD Preliminary Report By: Ra Rae Electronically signed By Trae Cleary MD Dictated Date: 02/24/2023 4:34:05 PM Prelim Date: 02/24/2023 4:45:56 PM Sign Date: 02/24/2023 5:29:28 PM Ordering Provider: [facility]01-04-[facility]24 Anesthesiology Consult note Patient: ROSA LANDERS Age: 82 years Sex: Female : 1940 Associated Diagnoses: None Author: MIRZA LAMA DO Preoperative Information Greater than 6 hours Anesthesia history Patient's history: negative. Family's history: negative. Review of Systems Ear/Nose/Mouth/Throat: Negative except as documented in history of present illness. Respiratory: Negative except as documented in history of present illness, COPD. Cardiovascular: Negative except as documented in history of present illness, AAA for open repair. Gastrointestinal: Negative except as documented in history of present illness. Genitourinary: Negative except as documented in history of present illness. Endocrine: Negative except as documented in history of present illness. Musculoskeletal: Negative except as documented in history of present illness. Integumentary: Negative except as documented in history of present illness. Neurologic: Negative except as documented in history of present illness. Health Status Allergies: Allergic Reactions (Selected) Severity Not Documented Aspirin- Bleed., Allergies (1) ActiveReaction aspirinBLEED Current medications: (Selected) Inpatient Medications Ordered Flonase 50 mcg/inh nasal spray: 100 mcg, 2 spray(s), Nostril, each, qDay, PRN: Allergy symptoms Heparin 10,000 units/mL: 10,000 unit(s), 1 mL, mL/hr, Miscellaneous, PREOP pharm NS 1,000 mL: 20 mL/hr, Intravenous, Stop: 02/24/23 23:59:00 EST atorvastatin: 40 mg, 1 tab(s), Oral, qHS calcium carbonate: 1,250 mg, 1 tab(s), Oral, qDay carvedilol 6.25 mg oral tablet: 6.25 mg, 1 tab(s), Oral, Daily clotrimazole 1% topical cream: 1 keisha, Topical, BID, PRN: Rash isosorbide mononitrate 30 mg oral tablet, extended release: 30 mg, 1 tab(s), Oral, qDay levothyroxine: 75 mcg, 1 tab(s), Oral, qDayAC mupirocin 2% topical ointment: 1 keisha, Topical, BID phenylephrine 40 mg: Infuse as directed for CVOR, Intravenous, Stop: 02/24/23 22:59:00 EST Incomplete Pulmicort Respules 0.5 mg/2 mL inhalation suspension: albuterol 2.5 mg/3 mL (0.083%) inhalation solution: albuterol 2.5 mg/3 mL (0.083%) inhalation solution: PRN: Wheezing docusate sodium 100 mg oral tablet: 100 mg, 1 tab(s), Oral, BID, PRN: Constipation Prescriptions Prescribed Flonase 50 mcg/inh nasal spray: 2 spray(s), Nostril, each, qDay, PRN: as needed for allergy symptoms, 16 gram(s), 0 Refill(s) Oyster Shell Calcium 500 (1250 mg calcium carbonate) oral tablet: 1,250 mg, 1 tab(s), Oral, qDay, for 90 day(s), with meals. with plenty of water, 90 tab(s), 1 Refill(s) atorvastatin 40 mg oral tablet: 40 mg, 1 tab(s), Oral, qHS, 90 tab(s), 0 Refill(s) docusate sodium 100 mg oral tablet: 100 mg, 1 tab(s), Oral, BID, for 90 day(s), with plenty of water, PRN: as needed for constipation, 180 tab(s), 1 Refill(s) famotidine 20 mg oral tablet: 20 mg, 1 tab(s), Oral, BID, for 90 day(s), avoid eating and drinking for 10 minutes after each dose, PRN: Reflux, 180 tab(s), 0 Refill(s) isosorbide mononitrate 30 mg oral tablet, extended release: 1 tab(s), Oral, qDay, 90 tab(s), 3 Refill(s) levothyroxine 75 mcg (0.075 mg) oral tablet: 75 mcg, 1 tab(s), Oral, qDayAC, for 90 day(s), as a single daily dose before breakfast, 90 tab(s), 3 Refill(s) mupirocin 2% topical ointment: 1 keisha, Topical, BID, Bilateral intranasal application twice daily x 5 days pre-surgery &/or as many days pre-surgery as possible., 22 gram(s), 0 Refill(s) nystatin 100,000 units/g topical cream: 1 keisha, Topical, BID, for 30 day(s), Apply to the affected area upper abdomen rash twice daily until healing complete., PRN: Rash, 30 gram(s), 1 Refill(s) Documented Medications Documented Advair Diskus 250 mcg-50 mcg inhalation powder: 1 puff(s), Inhalation, qDay, 0 Refill(s) Ventolin HFA MDI (90 mcg/inh) inhalation aerosol: 2 puff(s), Inhalation, q6hr, PRN: as needed for wheezing, 0 Refill(s) acetaminophen 500 mg oral tablet: 500 mg, 1 tab(s), Oral, q4h, PRN: as needed for pain, 0 Refill(s) acetaminophen-oxyCODONE 325 mg-5 mg oral tablet: 1.5 tab(s), Oral, BID, PRN: as needed for pain, 0 Refill(s) carvedilol 6.25 mg oral tablet: 6.25 mg, 1 tab(s), Oral, Daily, 0 Refill(s) loratadine 10 mg oral tablet: 10 mg, 1 tab(s), Oral, AsDirected, PRN: as needed for allergy symptoms, 0 Refill(s), Medications (11) Active Scheduled: (7) atorvastatin 40 mg tablet 40 mg 1 tab(s), Oral, qHS calcium carbonate 1250 mg (500 mg calcium) tablet 1,250 mg 1 tab(s), Oral, qDay carvedilol 6.25 mg tablet 6.25 mg 1 tab(s), Oral, Daily heparin 10,000 unit(s) 1 mL, Miscellaneous, PREOP pharm isosorbide mononitrate 30 mg ER tablet 30 mg 1 tab(s), Oral, qDay levothyroxine 75 mcg tablet 75 mcg 1 tab(s), Oral, qDayAC mupirocin 2% Ointment 22 Gram(s) tube 1 keisha, Topical, BID Continuous: (2) NS (0.9% nacl) 1,000 mL 1,000 mL, Intravenous, 20 mL/hr PHENYLephrine 40 mg / 250 mL PMX 40 mg 40 mg 250 mL, Intravenous PRN: (2) clotrimazole topical 1% Cream 1 keisha, Topical, BID fluticasone nasal 0.05 mg/inh [place] 100 mcg 2 spray(s), Nostril, each, qDay Problem list: Medical Abdominal aortic aneurysm greater than 39 mm in diameter / SNOMED CT 895229175 / Confirmed Opacity of lung on imaging study / SNOMED CT 772743684 / Confirmed DIMINISHED PULSES IN LOWER EXTREMITY / SNOMED CT 888798354 / Confirmed Allergic rhinitis / SNOMED CT 698536590 / Confirmed Aortic valve calcification / SNOMED CT 829227347 / Confirmed Aortic valve regurgitation / SNOMED CT 067249912 / Confirmed Bilateral hip joint arthritis / SNOMED CT 7490059802 / Confirmed Osteonecrosis of left hip / SNOMED CT 3987117449 / Confirmed Aortic atherosclerosis / SNOMED CT 021798891 / Confirmed Low bone density / SNOMED CT 9038901713 / Confirmed Chronic kidney disease, stage 3b / SNOMED CT 2670336859 / Confirmed CHF (CONGESTIVE HEART FAILURE) / SNOMED CT 20627539 / Confirmed Constipation / SNOMED CT 30808579 / Confirmed COPD - Chronic obstructive pulmonary disease / SNOMED CT 282349315 / Confirmed 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 / SNOMED CT 6262290316 / Confirmed Renal cyst / SNOMED CT 5100004558 / Confirmed Dizziness / SNOMED CT 6988877998 / Confirmed Systolic ejection murmur / SNOMED CT 173611641 / Confirmed Abnormal EKG / SNOMED CT 5326518796 / Confirmed Full code status / SNOMED CT 645431374 / Confirmed GERD - Gastro-esophageal reflux disease / SNOMED CT 2904929546 / Confirmed History of pneumonia / SNOMED CT 953376264 / Confirmed History of acute respiratory failure / SNOMED CT 248431542 / Confirmed Combined systolic and diastolic heart failure / SNOMED CT 027844999 / Confirmed Hilar lymphadenopathy / SNOMED CT 540936532 / Confirmed Hip pain / SNOMED CT 84094578 / Confirmed Bilateral hip pain / SNOMED CT 09350440 / Confirmed Hyperbilirubinemia / SNOMED CT 97872494 / Confirmed Hyperlipidemia / SNOMED CT 18262217 / Confirmed Hypermagnesemia / SNOMED CT 054717448 / Confirmed Hypernatremia / SNOMED CT 8100512810 / Confirmed Hyperphosphatemia / SNOMED CT 19488583 / Confirmed Hypertension goal BP (blood pressure) < 140/90 / SNOMED CT 5815584377 / Confirmed Hypocalcemia / SNOMED CT 7437113 / Confirmed Hypothyroidism / SNOMED CT 71747551 / Confirmed Mixed incontinence / SNOMED CT 38742522 / Confirmed Elevated serum protein level / SNOMED CT 892515420 / Confirmed Staphylococcus epidermidis infection / SNOMED CT 0614020008 / Confirmed Intermittent claudication / SNOMED CT 700035459 / Confirmed Pulmonary fibrosis / SNOMED CT 663113615 / Confirmed Intertrigo / SNOMED CT 74772465 / Confirmed Hepatomegaly / SNOMED CT 924160086 / Confirmed Hepatomegaly, not elsewhere classified / SNOMED CT 271128122 / Confirmed LV dysfunction / SNOMED CT 0298146992 / Confirmed Lesion of ear canal / SNOMED CT 695574271 / Confirmed Low back pain / SNOMED CT 850294844 / Confirmed Pulmonary nodule / SNOMED CT 400544597 / Confirmed Macrocytic anemia / SNOMED CT 556918327 / Confirmed Mitral valve regurgitation / SNOMED CT 09729305 / Confirmed Lung nodule, multiple / SNOMED CT 1860839289 / Confirmed Neuropathy / SNOMED CT 2536264109 / Confirmed Nicotine vapor product user / SNOMED CT 1140122936 / Confirmed Onychomycosis of toenail / SNOMED CT 9970090349 / Confirmed Osteoarthritis of facet joint of lumbar spine / SNOMED CT 3748657973 / Confirmed Osteoporosis / SNOMED CT 627548345 / Confirmed Overactive bladder / SNOMED CT 3002285353 / Confirmed Arterial insufficiency of lower extremity / SNOMED CT 3193368051 / Confirmed PVD (peripheral vascular disease) / SNOMED CT 9062330181 / Confirmed Post-menopausal / SNOMED CT 573831884 / Confirmed Pulmonary embolism / SNOMED CT 16318027 / Confirmed Emphysema of lung / SNOMED CT 033000355 / Confirmed Restless legs syndrome / SNOMED CT 86975385 / Confirmed Moderate scoliosis / SNOMED CT 834626896 / Confirmed Scoliosis of lumbar spine / SNOMED CT 0205185347 / Confirmed Left shoulder pain / SNOMED CT 13765719 / Confirmed Hepatic steatosis / SNOMED CT 597285106 / Confirmed Tobacco use / SNOMED CT 513523688 / Confirmed Mild persistent asthma, uncomplicated / SNOMED CT 5891277683 / Confirmed Urinary incontinence / SNOMED CT 2591324041 / Confirmed Vitamin D deficiency / SNOMED CT 23713733 / Confirmed, Active Problems (88) Abdominal aortic aneurysm greater than 39 mm in diameter Abnormal EKG Acute respiratory failure Allergic rhinitis Anemia Aortic atherosclerosis Aortic valve calcification Aortic valve regurgitation Arterial insufficiency of lower extremity Arthritis Back pain Bilateral hip joint arthritis Bilateral hip pain BMI 24.0-24.9, adult 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 Cellulitis CHF (CONGESTIVE HEART FAILURE) Chronic kidney disease, stage 3b Combined systolic and diastolic heart failure Constipation COPD - Chronic obstructive pulmonary disease DIMINISHED PULSES IN LOWER EXTREMITY Dizziness Elevated serum protein level Emphysema of lung Full code status GERD - Gastro-esophageal reflux disease Glasses Headache Hepatic steatosis Hepatomegaly Hepatomegaly, not elsewhere classified Hilar lymphadenopathy Hip pain History of acute respiratory failure History of pneumonia History of skin graft Hyperbilirubinemia Hypercholesterolemia Hyperlipidemia Hypermagnesemia Hypernatremia Hyperphosphatemia Hypertension goal BP (blood pressure) < 140/90 Hypocalcemia Hypothyroidism Intermittent claudication Intertrigo Left shoulder pain Leg pain, left Lesion of ear canal Low back pain Low bone density Lung nodule, multiple LV dysfunction Macrocytic anemia Mild persistent asthma, uncomplicated Mitral valve regurgitation Mixed incontinence Moderate scoliosis Neuropathy Nicotine vapor product user Onychomycosis of toenail Opacity of lung on imaging study Osteoarthritis of facet joint of lumbar spine Osteonecrosis of left hip Osteoporosis Overactive bladder Pneumonia Post-menopausal Presence of dental prosthetic device Pulmonary embolism Pulmonary fibrosis Pulmonary nodule PVD (peripheral vascular disease) Rash Renal cyst Restless legs syndrome Scoliosis of lumbar spine Seasonal allergy Staphylococcus epidermidis infection Systolic ejection murmur Systolic murmur Thinning of skin Tobacco use Urinary incontinence Use of cane as ambulatory aid Vitamin D deficiency Histories Past Medical History: Resolved Wound of left lower extremity (8575676261): Resolved. Comments: 06/26/2019 EDT 8:49 EDT - EDY SALOMON DO 05/10 per [facility], venous leg ulcer Thrombocytopenia (8971483437): Resolved. Iron deficiency anemia (358432458): Resolved. Family History: Cancer Father Comments: 02/01/2019 9:40 Mellisa Teixeira LPN skin Mother Comments: 02/01/2019 9:40 Mellisa Teixeira LPN stomach COPD - Chronic obstructive pulmonary disease Father Procedure history: Cardiac catheterization (36175641) on 03/26/2019 at 78 Years. Breast biopsy sample (3470409557) in 2008 at 68 Years. Comments: 02/01/2019 9:42 Mellisa Teixeira LPN left Colonoscopy (549964677) in 2008 at 68 Years. Thyroidectomy (80536003). Bronchoscopy (93104048). Social History Social & Psychosocial Habits Alcohol 02/24/2023 Use: Never Substance Abuse 02/24/2023 Use: Never Tobacco 02/24/2023 Tobacco Use: QUIT SMOKING IN 2019, CURRENTLY VAPES DAILY, Vaping Product in Last 90 Type: Electronic Cigarettes ([place] Started at age: 17 Years Home/Environment 02/24/2023 Domestic Concerns Denies Nutrition/Health 02/24/2023 Caffeine intake amount: 1-2 servings/day . Physical Examination Vital Signs(last 24 hrs) Last Charted Temp Oral36.5 DegC (FEB 24 10:05) Heart Rate Ogvgdngkr86 bpm (FEB 24 12:20) Resp Rate 16 br/min (FEB 24 10:05) DGP285 mmHg (FEB 24 11:37) DBP69 mmHg (FEB 24 11:37) BMI23.07 (FEB 24 10:16) General: Alert and oriented. Airway: Normal temporomandibular joint mobility, Normal mouth, Normal throat, Normal neck range of motion, Trachea midline. Mallampati classification: II (soft palate, fauces, uvula visible). Head: Normocephalic. Dentition Evaluation: Dentures, lower, Dentures, upper. Neck: Supple. Respiratory: Lungs are clear to auscultation. Cardiovascular: Normal rate. Heart Sounds: Normal. Gastrointestinal: Soft. Musculoskeletal Normal range of motion. Integumentary: Intact, Warm, Dry, Belle. Neurologic: Alert, Oriented. Review / Management Results review: Labs (Last four charted values) Plt 185(FEB 24) PT 11.4(FEB 24) INR 1.0(FEB 24) PTT 31.9(FEB 24) . Assessment and Plan [place] [employer]hesi[employer] (ASA) physical status classification: Class IV. Anesthetic Preoperative Plan Premedication: None. Anesthetic technique: General. Induction: intravenously. Maintenance airway: Oral endotracheal tube. Special techniques: Warming device, no Extracorporeal. Special Monitoring: Arterial line, Central venous catheter. Postoperative pain management: Per surgeon. Risks discussed: nausea, vomiting, headache, sore throat, dental injury, hypotension, allergic reaction, serious complications. Informed consent: signed by patient. Beta Edna: Beta Edna Taken Within 24 Hrs: Yes. Digitally Signed by MIRZA LAMA DO on 02/24/2023 12:32 PM [id number]* Exam Date Time Procedure Performing Provider Status 01/18/23 11:12 AM Echocardiogram, Adult (AOH) Auth (Verified) [facility] Evaluation + Plan note Future Appointments Appointment Date:02/26/2021 01:30:00 PM Scheduled Provider:EDY SALOMON DO Location:[facility] Appointment Type:PC OV Appointment Date:08/31/2021 01:15:00 PM Scheduled Provider:IGGY DUNCAN Location:[facility] Appointment Type:CV OV Future Scheduled Tests Laboratory* Thyroid Stimulating Hormone 08/08/20 Radiology* BD Bone Density DEXA Axial Skeleton 06/27/20 * CT Thorax w/ Contrast 06/27/20 [facility] evaluation + Plan note Future Appointments Appointment Date:09/21/2021 02:00:00 PM Scheduled Provider:IGGY DUNCAN Location:[facility] Appointment Type:CV OV Future Scheduled Tests Radiology* BD Bone Density DEXA Axial Skeleton 04/03/21 * CT Head or Brain w/o Contrast 04/03/21 * CT Thorax w/ Contrast 06/27/20 [facility]uation + Plan note Future Appointments Appointment Date:06/16/2022 11:00:00 AM Scheduled Provider:EDY SALOMON DO Location:[facility] Appointment Type:PC Wellness Medicare Diagnostic Tests Pending * Vitamin D Level 10/07/21 Future Scheduled Tests Radiology* BD Bone Density DEXA Axial Skeleton 04/03/21 * CT Head or Brain w/o Contrast 04/03/21 [facility] evaluation + Plan note Future Appointments Appointment Date:06/16/2022 11:00:00 AM Scheduled Provider:EDY SALOMON DO Location:[facility] Appointment Type:[facility] Medicare Appointment Date:03/16/2023 11:30:00 AM Scheduled Provider:IGGY DUNCAN Location:[facility] Appointment Type:CV OV Future Scheduled Tests Radiology* BD Bone Density DEXA Axial Skeleton 04/03/21 * CT Head or Brain w/o Contrast 04/03/21 [facility] evaluation + Plan note Future Appointments Appointment Date:10/15/2022 01:30:00 PM Scheduled Provider:EDY SALOMON DO Location:[facility] Appointment Type:PC OV Appointment Date:03/16/2023 11:30:00 AM Scheduled Provider:IGGY DUNCAN Location:[facility] Appointment Type:CV OV Future Scheduled Tests Laboratory* Thyroid Stimulating Hormone 07/23/22 [facility] evaluation + Plan note Future Appointments Appointment Date:03/16/2023 11:30:00 AM Scheduled Provider:IGGY DUNCAN Location:[facility] Appointment Type:CV OV Appointment Date:03/29/2023 01:00:00 PM Scheduled Provider:EDY SALOMON DO Location:[facility] Appointment Type:PC Wellness Medicare Future Scheduled Tests Laboratory* Basic Metabolic Panel 10/18/22 Radiology* XR Chest 2 Views (PA & Lateral) 10/19/22 [facility] evaluation + Plan note Future Appointments Appointment Date:06/06/2023 01:30:00 PM Scheduled Provider:IGGY DUNCAN Location:[facility] Appointment Type:CV OV Appointment Date:06/21/2023 01:30:00 PM Scheduled Provider:EDY SALOMON DO Location:[facility] Appointment Type:PC Wellness Medicare Future Scheduled Tests Laboratory* Basic Metabolic Panel 10/18/22 * Basic Metabolic Panel 04/13/23 * Magnesium Level 04/13/23 * Complete Blood Count 04/13/23 * Vitamin D Level 04/13/23 Radiology* XR Chest 2 Views (PA & Lateral) 10/19/22 [facility] Evaluation + Plan note Future Appointments Appointment Date:06/21/2023 01:30:00 PM Scheduled Provider:EDY SALOMON DO Location:[facility] Appointment Type:PC Wellness Medicare Future Scheduled Tests Laboratory* Basic Metabolic Panel 10/18/22 * Basic Metabolic Panel 04/13/23 * Magnesium Level 04/13/23 * Complete Blood Count 04/13/23 * Vitamin D Level 04/13/23 Radiology* XR Chest 2 Views (PA & Lateral) 10/19/22 [facility] evaluation + Plan note Future Appointments Appointment Date:03/28/2024 02:30:00 PM Scheduled Provider:IGGY DUNCAN Location:[facility] Appointment Type:CV OV Future Scheduled Tests Laboratory* Basic Metabolic Panel 10/18/22 * Basic Metabolic Panel 04/13/23 * Magnesium Level 04/13/23 * Complete Blood Count 04/13/23 * Vitamin D Level 04/13/23 Radiology* XR Chest 2 Views (PA & Lateral) 10/19/22 [facility] Evaluation + Plan note Future Appointments Appointment Date:02/03/2024 11:30:00 AM Scheduled Provider:EDY SALOMON DO Location:[facility] Appointment Type:PC OV Appointment Date:03/28/2024 02:30:00 PM Scheduled Provider:IGGY DUNCAN Location:[facility] Appointment Type:CV OV Future Scheduled Tests Laboratory* Basic Metabolic Panel 04/13/23 * Magnesium Level 04/13/23 * Complete Blood Count 12/23/23 * Complete Blood Count 04/13/23 * Vitamin D Level 04/13/23 * N-Terminal proBNP 12/23/23 Radiology* BD Bone Density DEXA Axial Skeleton Adult (21 yrs or older) 12/23/23 * US Soft Tissue Mass of Neck 12/23/23 [facility] Evaluation + Plan note Future Appointments Appointment Date:02/17/2024 03:30:00 PM Scheduled Provider:EDY SALOMON DO Location:[facility] Appointment Type:PC OV Appointment Date:03/28/2024 02:30:00 PM Scheduled Provider:IGGY DUNCAN Location:[facility] Appointment Type:CV OV Future Scheduled Tests Laboratory* Basic Metabolic Panel 04/13/23 * Magnesium Level 04/13/23 * Complete Blood Count 04/13/23 * Vitamin D Level 04/13/23 [facility] Evaluation + Plan note Future Appointments Appointment Date:09/04/2024 02:45:00 PM Scheduled Provider: Location:[facility] Appointment Type:MRI Brain w/ + w/o Contrast Appointment Date:09/04/2024 03:30:00 PM Scheduled Provider: Location:[facility] Appointment Type:CT Chest w/o Contrast Appointment Date:09/25/2024 02:30:00 PM Scheduled Provider:EDY SALOMON DO Location:[facility] Appointment Type:PC OV Appointment Date:01/02/2025 02:30:00 PM Scheduled Provider:EDY SALOMON DO Location:[facility] Appointment Type:PC Wellness Medicare Future Scheduled Tests Radiology* CT Angiography Abd Aorta + Iliofemoral 07/11/24 * CT Thorax w/o Contrast 09/04/24 * MRI Brain w/ + w/o Contrast 09/04/24 [facility] Evaluation + Plan note Future Appointments Appointment Date:09/18/2024 02:30:00 PM Scheduled Provider:IGGY DUNCAN Location:[facility] Appointment Type:CV OV Appointment Date:09/25/2024 02:30:00 PM Scheduled Provider:EDY SALOMON DO Location:[facility] Appointment Type:PC OV Appointment Date:01/02/2025 02:30:00 PM Scheduled Provider:EDY SALOMON DO Location:[facility] Appointment Type:PC Wellness Medicare Future Scheduled Tests Radiology* CT Angiography Abd Aorta + Iliofemoral 07/11/24 [facility] Evaluation + Plan note Future Appointments Appointment Date:09/18/2024 02:30:00 PM Scheduled Provider:IGGY DUNCAN Location:[facility] Appointment Type:CV OV Appointment Date:09/25/2024 02:30:00 PM Scheduled Provider:EDY SALOMON DO Location:[facility] Appointment Type:PC OV Appointment Date:12/11/2024 01:00:00 PM Scheduled Provider: Location:[facility] Appointment Type:CT Abd/Pelvis w/ IV Contrast Only Appointment Date:01/02/2025 02:30:00 PM Scheduled Provider:EDY SALOMON DO Location:[facility] Appointment Type:PC Wellness Medicare Future Scheduled Tests Radiology* CT Angiography Abd Aorta + Iliofemoral 07/11/24 * CT Abd/Pelvis w/ IV Contrast Only 12/11/24 [facility] Evaluation + Plan note Future Appointments Appointment Date:10/23/2024 01:30:00 PM Scheduled Provider:IGGY DUNCAN Location:[facility] Appointment Type:CV OV Appointment Date:12/11/2024 01:00:00 PM Scheduled Provider: Location:[facility] Appointment Type:CT Abd/Pelvis w/ IV Contrast Only Appointment Date:12/18/2024 01:30:00 PM Scheduled Provider:EDY SALOMON DO Location:[facility] Appointment Type:PC OV Appointment Date:01/02/2025 02:30:00 PM Scheduled Provider:EDY SALOMON DO Location:[facility] Appointment Type:PC Wellness Medicare Future Scheduled Tests Radiology* CT Angiography Abd Aorta + Iliofemoral 07/11/24 * CT Abd/Pelvis w/ IV Contrast Only 12/11/24 [facility] Evaluation + Plan note Future Appointments Appointment Date:12/11/2024 01:00:00 PM Scheduled Provider: Location:[facility] Appointment Type:CT Abd/Pelvis w/ IV Contrast Only Appointment Date:12/18/2024 01:30:00 PM Scheduled Provider:EDY SALOMON DO Location:[facility] Appointment Type:PC OV Appointment Date:01/02/2025 02:30:00 PM Scheduled Provider:EDY SALOMON DO Location:[facility] Appointment Type:PC Wellness Medicare Appointment Date:01/22/2025 11:00:00 AM Scheduled Provider: Location:[facility] Appointment Type:Echo - Echocardiogram Adult Appointment Date:01/29/2025 11:00:00 AM Scheduled Provider:IGGY DUNCAN Location:[facility] Appointment Type:CV OV Future Scheduled Tests Radiology* CT Angiography Abd Aorta + Iliofemoral 07/11/24 * CT Abd/Pelvis w/ IV Contrast Only 12/11/24 [facility] evaluation + Plan note Future Appointments Appointment Date:12/18/2024 01:30:00 PM Scheduled Provider:EDY SALOMON DO Location:[facility] Appointment Type:PC OV Appointment Date:01/02/2025 02:30:00 PM Scheduled Provider:EDY SALOMON DO Location:[facility] Appointment Type:PC Wellness Medicare Appointment Date:01/22/2025 11:00:00 AM Scheduled Provider: Location:[facility] Appointment Type:Echo - Echocardiogram Adult Appointment Date:01/29/2025 11:00:00 AM Scheduled Provider:IGGY DUNCAN Location:[facility] Appointment Type:CV OV Future Scheduled Tests Radiology* CT Angiography Abd Aorta + Iliofemoral 07/11/24 [facility] Evaluation noteNo assessment information available [facility] Work Phone: Hospital course Narrative No data available for this section [facility] Hospital Discharge instructions No data available for this section [facility] Progress note No data available for this section [facility] Reason for referral (narrative)No reason for referral information [facility] Work Phone: Summary Purpose Family History No Family History Records Found Relationship Condition Age at Onset Recorded Date/T antonio Unknown Family History?- Unknown February 192018 5:09pm Advance Directives No Advanced Directives Records FoundNo Advanced Directives Records FoundNo Advanced Directives Records FoundNo Advanced Directives Records FoundNo Advanced Directives Records Found Chief Complaint and Reason for Visit Chief Complaint Infrarenal abdominal aortic aneurysm, 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 DATE CREATED AUTHOR AUTHOR'S ORGANIZ ATION 09/16/[address] [facility] ([place]) DATE CREATED AUTHOR AUTHOR'S ORGANIZ ATION 11/02/2024 [facility] DATE CREATED AUTHOR AUTHOR'S ORGANIZ ATION 11/29/2024 [facility] DATE CREATED AUTHOR AUTHOR'S ORGANIZ ATION 12/14/2024 [facility] Care Team (unrecognized sect ion and content) Team Status: Active Member Role Status Dates Dr. Edy Salomon DO Family Provider Active Dr. Edy Salomon DO Primary Care Provider Active Team Status: Inactive Member Role Status Dates Dr. Edy Salomon DO Primary Care Provider Active Dr. Robert Sands MD Attending Provider, Referring Provider Active Team Status: Active Member Role/Relationship Status Dates Dr. Edy Salomon DO Primary Care Provider Active Team Status: Inactive Member Role/Relationship Status Dates Dr. Edy Salomon DO Primary Care Provider Active Start: October 11, 2024 End: October 18, 2024 Dr. Edy Salomon DO Referring Provider Active St art: October 11, 2024 End: October 18, 2024 Dr. Snow Gunderson MD Attending Provider Active Start: October 11, 2024 End: October 18, 2024 Team Status: Active Member Role/Relationship Status Dates Dr. Edy Salomon DO Primary Care Provider Active Start: October 11, 2024 Dr. Edy Salomon DO Referring Provider Active St art: October 11, 2024 Dr. Snow Gunderson MD Attending Provider Active Start: October 11, 2024 Dr. Snow Gunderson MD Other Provider Active Start: October 11, 2024 Care Team (unrecognized sect ion and content) Care Team Personnel Name: EDY SALOMON DO Position: P4 Physician - Primary Care Med Service: Active Provider Member Role: Primary Care Physician Address: Address: [address] [place] [address] Care Team Related Persons Name: PATRICIA VALENZUELA Care Team Personnel Name: EDY SALOMON DO Position: P4 Physician - Primary Care Member Role: Primary Care Physician Address: Address: [address] [place] [address] Care Team Related Persons Name: PATRICIA VALENZUELA Goals (unrecognized section and content) Goals may be documented in a n alternate section FOR RECORDS PERTAINING TO PATIENTS WHO ARE OR HAVE BEEN ENROLLED IN A CHEMICAL DEPENDENCY/SUBSTANCEABUSE PROGRAM, SOME INFORMATION MAY BE OMITTED. This clinical summary was aggregated from multiple sources. Caution should be exercised in using it in the provision of clinical care. This summary normalizes information from multiple sources, and as a consequence, information in this document may materially change the coding, format and clinical context of patient data. In addition, data may be omitted in some cases. CLINICAL DECISIONS SHOULD BE BASED ON THE PRIMARY CLINICAL RECORDS. [facility] [employer] [facility]. provides no warranty or guarantee of the accuracy or completeness of information in this document.
--- NOTE | 2025-01-23 11:45 | KID_PTH ---
PATIENT: ROSA KRAFT LOC: MS3 U#:[id number] AGE/SX: 84/F ROOM: [facility] [place] RE01/23/[address]: Dr. Valdo Conti MD : 1940 BED: 1 DIS: 01/27/2025 SPEC #: [id number] RECD: 01/23/25 16:10 STATUS: JACK ALETHA #: [id number] JESSIE: 01/23/25 11:[address]: Valdo Conti DEPT: SURGICAL PATHOLOGY RECD BY: Augustin Jackson ENTERED: 01/24/25 09:40 SP TYPE: KIDNEY OTHR DR: Dr. Edy Patton DO Tissues: A - Kidney, NOS B - Kidney, NOS C - Rib, NOS Procedures: Decalcification bone/plaque Immunohistochemical Stains Surgery Specimen Level III Surgery Specimen Level V IHC Stain ADDITIONAL HEADER OPERATION: Partial nephrectomy PRE-OP DIAGNOSIS: Mass in left kidney TISSUE SUBMITTED: A- Left kidney cyst wall, B- Left kidney tumor, C- Left 12th rib tip MICROSCOPIC DIAGNOSIS A. Left kidney, cyst wall, excision: - Benign simple cyst B. 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 Left 12th rib: - Benign bone and soft tissue with normocellular hematopoietic bone marrow MICROSCOPIC DESCRIPTION Slides are reviewed. GROSS DESCRIPTION Received in 3 formalin containers labeled with the patient's name and date of . Designated as: A. Left kidney cyst wall is a 2.2 x 1.5 x 0.1 cm steen-pink slightly wrinkled incomplete apparent cyst wall with attached adipose tissue, collectively measuring 2.4 x 2.3 x 0.4 cm. The specimen is serially sectioned and entirely submitted in 3 cassettes. B. Left kidney tumor is a 17.1 g, 4.2 x 3.7 x 2.7 cm steen to light brown a partial nephrectomy, devoid of orientation. There is attached lobulated soft tissue and focal, apparent exudate (vs partial capsule?). The specimen is inked as follows: Peripheral margin/soft tissue: GreenPresumed parenchymal margin: Black Sectioning reveals a 2.9 x 2.6 x 2.1 cm yellow-red, variegated, solid to cystic mass involving the renal parenchyma and surrounding soft tissue; the mass is located <0.1 cm from the peripheral margins and the presumed parenchymal margin. Additionally, there is a 1.2 cm apparent vessel within the mass spanning to the peripheral margin. Ship Scaler sections are submitted in 4 cassettes as follows: B1: Mass with vessel and closest parenchymal marginB2: Mass to peripheral marginB3: Mass to peripheral marginB4: Uninvolved renal parenchyma C. Left 12th rib tip is a 4.3 x 1.1 x 0.2 cm flat segment of bone with attached soft tissue. Ship Scaler sections are submitted in 1 cassette, following brief decalcification. TN 01/24/2025 CPT:[id number] ADDENDUM ADDENDUM ADDENDUM ADDENDUM ADDENDUM ADDENDUM ADDENDUM ADDENDUM ADDENDUM ADDENDUM ADDENDUM 01/30/2025 13:23 ADDENDUM 01/30/2025 13:23 ADDENDUM 01/30/2025 13:23 ADDENDUM 01/30/2025 13:23 ADDENDUM 01/30/2025 13:23 These immunohistochemical stains have been performed to further characterize this neoplasm: CD-117 (positive), CAM5.2 (positive), CAIX (negative), CK7 (focal/weak), e-cadherin (positive), Oconnell keratin (weak/negative), PAX8 (weak positive), and S-100 (weak/negative). 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 All matched controls reacted appropriately. These tests were developed and their performance characteristics determined by [facility]. They may not have been cleared or approved by the [place]. Food and Drug Administration. The FDA has determined that such clearance or approval is not necessary. The above immunohistochemical markers are viewed by the Pathologist.
[2025-01-23] MEDS: Lactated Ringers 1,000 ML 1000 ML IV (13:25)
[2025-01-23] MEDS: Cefazolin 1 GM/5 ML Vial 2 GM IV (13:26)
[2025-01-23] MEDS: Lidocaine 1% (5 ml sdv) 5 ML Vial IV (13:31)
[2025-01-23] MEDS: dexMEDEtomidine 200 MCG/2 ML ML 16 MCG IV (13:59)
[2025-01-23] MEDS: fentaNYL 100 MCG/2 ML Ampul IV (14:07)
--- NOTE | 2025-01-23 15:49 | DCINST_ITS ---
Discharge Instructions DC O2, CPAP, BIPAP needs Home O2 Discharge instructions: No Dressing / Incision Discharge Activity: May Not Drive and May Shower Dressing / Incision Call your doctor if your incision/area has: Continuous Slow Oozing and Sudden Increased Bleeding Call your doctor if you observe: Fever of 101 or Higher and Uncontrolled pain Suture Line Care: Avoid Pulling/Pushing and Avoid Pinching/Bending Additional Dressing/Incision Instructions:: JULIEN drain to suction. Follow Up Care Please Follow Up With: Valdo Conti MD When: 7 days to remove drain Test Results: Test results from this visit will be discussed in further detail at your follow- up appointment, if applicable. Discharge Plan Admission Primary Reason for Your Visit: left partial nephrectomy Attending Provider: Valdo Conti Primary Care Provider: Edy Patton Instructions Print Language: Chinese Discharge Orders/Prescriptions Prescriptions: New docusate sodium [Colace] 100 mg capsule 100 mg PO BID Qty: 20 0RF Continued acetaminophen 500 MG tablet 500 mg PO Q4H PRN PRN (Reason: Pain Or Fever) albuterol sulfate 1 INHALER inhaler 2 puff inhalation Q6H PRN PRN (Reason: Wheezing) levothyroxine 112 MCG tablet 112 mcg PO DAILY loratadine 10 MG capsule 10 mg PO DAILY PRN (Reason: allergy symptoms) oxycodone 10 mg tablet 10 mg PO Q8 atorvastatin 40 mg tablet 40 mg PO QHS calcium carbonate-vitamin D2 600 mg calcium- 200 unit tablet 1 tab PO DAILY polyethylene glycol 3350 [Miralax] 17 gram/dose powder 4 g PO DAILY carvedilol [Coreg] 6.25 mg tablet 3.125 mg PO BID Rx Instructions: must administer with a meal/food pantoprazole 40 mg tablet,delayed release (DR/EC) 40 mg PO .evening before dinne Referrals / Follow Up: Valdo Conti MD [Med Staff - Active Staff, Urology] Edy Patton DO [Primary Care Provider, Family Practice] Disposition Disposition (needs filled in before D/C Order can be placed): Home, Self Care
--- NOTE | 2025-01-23 16:01 | PCM.POST.ANE ---
Anesthesia: Postop Eval I Current Vital Signs Temperature: 96.9 F Pulse Rate: 69 Blood Pressure: 155/93 Respiratory Rate: 16 Pulse Ox: 98 Oxygen Delivery Method: Room Air Assessment Airway patent: Yes Spontaneous unlabored respirations: Yes Mental status: Awake and Calm nausea: No Vomiting: No Anesthesia Complication: No Fluid Hydration Crystalloid volume administer (ml): 1,000 Total IV fluid infused: 1,000 Progress Note Anesthesia document: Postop Eval 1 completed: Yes
--- NOTE | 2025-01-23 16:23 | OP.PCM_ITS ---
Operative Report (Standard) Operative Information Date of Procedure: 01/23/25 Pre-Operative Diagnosis: left renal mass Post-Operative Diagnosis: the same Surgery/Procedure Performed: open left partial nephrectoomy maintenance department technician: Yes Edge Sander: Thuan Bello Tasks completed by casino assistant manager: Opening, Closing, Opening & closing, Harvesting grafts, Dissecting tissue, Removing tissue, Implanting device, Altering tissue, Insert Trochanter, Hemostasis: Clamp, Hemostasis: Tie, Hemostasis: Electrocautery, Trocar, Retracting and Other Type of Anesthesia: General RN Documented Start/Stop Times: Operation Date: 01/23/25 11:45 Case Time Into Pre-Op 01/23/25 10:21 Out of Pre-Op 01/23/25 13:14 Anesthesia Start 01/23/25 13:25 Into Room 01/23/25 13:25 Procedure Start 01/23/25 13:57 Procedure End 01/23/25 15:44 Procedure Start Time: 13:57 Procedure Stop Time: 15:44 Select all DRAINS/GRAFTS/IMPLANTS that apply: Drains Drain details: JULIEN drain and Dominguez Estimated Blood Loss: 150cc Specimen collected: Yes Description of specimen(s) removed: rib and renal mass Description of surgery: this is an 84-year-old female who has a solid mass in thee central portion of her left kidney she does have chronic renal deficiency and poor kidney function the mass has appeared to grow bigger in the last six months we have watched it at this point options were discuss with the patient and her family of either continued watching as this could be a malignancy or removal of the mass with a partial nephrectomy she doesn't history of a prior open AAA repair so I recommended we do an open left partial nephrectomy making a robotic approach somewhat difficult Patient was taken back to the operating room after smooth induction of anesth esia issues placed. Position with the approach to the left kidney through the tip of the 12th rib remark the 12th rib on palpation automated incision on the flank dissected to the external oblique enteral beak and transverse is muscle we got to the tip of the 12th rib the 12th of using the periosteum elevator elevated the rib and then use the statement distribution clerk to transected the rib and then open up the posterior retroperitoneal space behind the kidney immediately I could see the cyst on the kidney, I could see the colon and the stomach pressing up on the kidney and this was carefully dissected off the kidney, then went use this opportunity retractor to expose the kidney and then I dissected down to the hilum of the kidney very carefully with electrocautery and using a curved hemostat and was able to do if I the renal artery the renal artery was then identified and a loop muscle that was placed around the renal artery and secured offer future clamping. I then dissected to the kidney we use an ultrasound identify the cyst the cyst with the corrugated I used intraoperative ultrasound today in a fight the cyst after rupturing office assistant receptionist removing the cyst then we did a cysto below and below the cyst was a tumor I then used the ultrasound to identify the market lesions in the edges of the tumor there were deep within the kidney the tumor was central to the kidney right near the hilum and right near the collecting system. After the edges of the tumor were identified on the surface of the kidney in the artery was clamped and I started with electrocautery dissection all the way around the edges of medication where it on the parenchyma and then use the a Metzenbaum and cold cut scissors to then dissect deep into the kidney is dissecting I came across the collecting system the collecting system have to be opened in over to the remove the tumor and then after opening the collecting system the tumor was completely removed are from deep within the kidney after the tumor was removed the deep within the central portion the kidney that I had to reconstruct the collecting system using stitches real stitches were done to conduct reconstruct the collecting system. Once eclecticism was closed then we unclamp the kidney and immediately I encountered some material bleeding from the branch artery suture ligated this branch and stop the bleeding I then used 30B LOC stitch to continue all the way around the kidney to secure blood vessels I once is undone there is miinimal losing from deep within the kidney then I placed surgiflo and's and Surgicle to sell deep into the kidney and bolsters and then we close the kidney with interrupted over Tj's and then I used wedges to close the kidney completely for a complete closure that I put a drain around the kidney in case there was a urine leak and at this pointt all sponges a new account for the renal artery had been unclamp to the vessel the peppermint removed plan time was less than 20 minutes for this resection and the we close the incision and the two layers leave in a drain and encloses the skin with stitches patient and aesthetic was reversed and she's taken back to the PACU in stable condition after successful open partial nephrectomy for a deep tumor in the kidney. Surgical Findings: central tumor from the left kidney removed completely Complications Complications: No Admit VTE Documentation VTE Present on Admission: No VTE Mechan Device Prophylaxis: SCD's VTE Pharm Prophylaxis ordered?: No
--- NOTE | 2025-01-23 16:41 | POSTOPAN2_ITS ---
Anesthesia Postop Eval I Sum Postop Eval Completion status Anesthesia document: Postop Eval 1 completed: Yes Anesthesia Postop Eval I Summary Anesthesia Postop Eval I Summary: Anesthesia Postop Eval I: Assessment Summary Airway patent Yes 01/23/25 16:02 [email or web address] Spontaneous unlabored Yes 01/23/25 16:02 [email or web address] respirations Mental status Awake,Calm 01/23/25 16:02 [email or web address] nausea No 01/23/25 16:02 [email or web address] Vomiting No 01/23/25 16:02 [email or web address] Anesthesia Postop Eval I: Fluid Summary Crystalloid volume administer 1,000 01/23/25 16:02 [email or web address] (ml) Colloids volume administered ( ml) Blood Product volume administered (ml) Total IV fluid infused 1,000 01/23/25 16:02 [email or web address] Anesthesia Postop Eval I: Summary Notes Anesthesia Complication No 01/23/25 16:02 [email or web address] Anesthesia Complication Comment: Post-operative progress note Anesthesia: Postop Eval II Evaluation Mental status: Awake Pain Level: 3 (treated with fentanyl and dilaudid) nausea: No Vomiting: No Complications Anesthesia Complication: No
--- NOTE | 2025-01-23 16:41 | PCM.POSTANE2 ---
Anesthesia Postop Eval I Sum Postop Eval Completion status Anesthesia document: Postop Eval 1 completed: Yes Anesthesia Postop Eval I Summary Anesthesia Postop Eval I Summary: Anesthesia Postop Eval I: Assessment Summary Airway patent Yes 01/23/25 16:02 [email or web address] Spontaneous unlabored Yes 01/23/25 16:02 [email or web address] respirations Mental status Awake,Calm 01/23/25 16:02 [email or web address] nausea No 01/23/25 16:02 [email or web address] Vomiting No 01/23/25 16:02 [email or web address] Anesthesia Postop Eval I: Fluid Summary Crystalloid volume administer 1,000 01/23/25 16:02 [email or web address] (ml) Colloids volume administered ( ml) Blood Product volume administered (ml) Total IV fluid infused 1,000 01/23/25 16:02 [email or web address] Anesthesia Postop Eval I: Summary Notes Anesthesia Complication No 01/23/25 16:02 [email or web address] Anesthesia Complication Comment: Post-operative progress note Anesthesia: Postop Eval II Evaluation Mental status: Awake Pain Level: 3 (treated with fentanyl and dilaudid) nausea: No Vomiting: No Complications Anesthesia Complication: No
[2025-01-23] MEDS: 0.9% Normal Saline (1000mL) 1,000 ML 75 ML IV (17:43)
--- OUTSIDE RECORDS SUMMARY | 2025-01-23 18:04 | XMS RPT_ITS | CCD ---
Author Organization [facility] Care Team Providers Care Tamper Operator Name Role Phone UMM VILLALBA, DR SNOW [...] Unavailable ROBERT SANDS MD Attending Unavailable UMM VILLALAB, DR SNOW Primary Care Unavailable MIAN ANTHONY, DANITA V Consulting Unavailable SHAVON ANTHONY, ROBERT Moody Admitting Unavailable YOON ABRAMS MD, LUCIAN Consulting Unavailable IRA ANTHONY, NHAN Consulting Unavailable SHAVON ANTHONY, ROBERT Moody Consulting Unavailable ROBERT SANDS MD Attending Unavailable UMM VILLALBA, DR SNOW Primary Care Unavailable Umm VILLALBA, Dr. Snow Primary Care Provider Umm VILLALBA, Dr. Snow Referring Provider [phone] Jalyn ANTHONY, Dr. Adamson Attending Provider Jalyn ANTHONY, Dr. Adamson Other Provider [phone] UMM VILLALBA, DR SNOW Attending Unavailable UMM [...] (1 source) Aspirin; Translations: [aspirin] Drug Allergy [facility] (20 sources) Aspirin; Translations: [aspirin] Drug Allergy [facility] Medications Current Medications Medication Drug Class(es) Dates [...] tablet (1 source) Opioid Agonist Start: 02-27-2023 Chandler 325- 5 m g oral tablet Dose [...] 0 Refill(s) Start Date: 02/01/19 Status: Ordered [id number] 200 actuat albuterol 0.09 mg/actuat metered dose [...] 0 Refill(s), 01/02/24 12:38:00 PM EST, [id number], 157.3, cm, 12/23/23 11:27:00 EDT, Height, [...] qHS, # 100 tab(s), 1 Refill(s), [id number], 165.1, cm, 10/23/24 13:39:00 EDT, Height, kg, 10/23/24 13:39:00 EDT, Dosing Weight Start Date: 11/07/24 Stop Date: 05/26/25 Status: Ordered Medication Dispense Status: Completed Quantity: 100.0 Unit: tab(s) Total Allowed Fills: 2 Fills Dispensed: 0 Start: 07-27-2024 End: 11-04-2024 atorvastatin 40 mg oral tabl et Dose : 40 mg = 1 tab(s), Oral, qHS, # 100 tab(s), 0 Refill(s), [id number], 157.3, cm, 12/23/23 11:27:00 EDT, Height, kg, 12/23/23 11:27:00 EDT, Dosing Weight Start Date: 07/27/24 Stop Date: 11/04/24 Status: Ordered Medication Dispense Status: Completed Quantity: 100.0 Unit: tab(s) Total Allowed Fills: 1 Fills Dispensed: 0 Start: 12-23-2023 End: 07-10-2024 atorvastatin 40 mg oral tabl et Dose : 40 mg = 1 tab(s), Oral, qHS, # 100 tab(s), 1 Refill(s), Pharmacy: [facility]/pharmacy #[id number], 157.3, cm, 12/23/23 11:27:00 EDT, Height, kg, 12/23/23 11:27:00 EDT, Dosing Weight Start Date: 12/23/23 Stop Date: 07/10/24 Status: Ordered Quantity: 100.0 Unit: tab(s) Repeat number: 2 Start: 02-08-2023 atorvastatin 4 0 mg oral tablet Dose : 40 mg = 1 tab(s), Oral, qHS, # 90 tab(s), 0 Refill(s), Pharmacy: [facility] #[id number], 152, cm, 01/11/23 15:09:00 EST, Height, kg, 01/11/23 15:09:00 EST, Dosing Weight Start Date: 02/08/23 Status: Ordered Start: 10-15-2022 atorvastatin 4 0 mg oral tablet Dose : 40 mg = 1 tab(s), Oral, qHS, # 90 tab(s), 1 Refill(s), Pharmacy: [facility], 152, cm, 10/15/22 13:36:00 EDT, Height, kg, 10/15/22 13:36:00 EDT, Dosing Weight Start Date: 10/15/22 Status: Ordered Start: 05-18-2022 atorvastatin 4 0 mg oral tablet Dose : 40 mg = 1 tab(s), Oral, qHS, # 90 tab(s), 0 Refill(s), Pharmacy: [facility] #[id number], 152, cm, 03/16/22 11:29:00 EST, Height, kg, 03/16/22 11:29:00 EST, Dosing Weight Start Date: 05/18/22 Status: Ordered Start: 10-07-2021 atorvastatin 4 0 mg oral tablet Dose : 40 mg = 1 tab(s), Oral, qHS, # 90 tab(s), 1 Refill(s), Pharmacy: [facility], 152, cm, 10/07/21 11:52:00 EDT, [...] Daily, # 90 tab(s), 0 Refill(s), Pharmacy: [facility], 162, cm, 01/22/21 11:35:00 EST, [...] BID, # 180 tab(s), 3 Refill(s), Pharmacy: [facility]/pharmacy #[id number], 157.3, cm, 08/21/24 16:24:00 EDT, Height, [...] BID, # 180 tab(s), 3 Refill(s), Pharmacy: [facility] #[id number], 160, cm, 03/16/23 13:01:00 EST, Height, kg, [...] BID, # 90 tab(s), 3 Refill(s), Pharmacy: [facility] #[id number], 160, cm, 03/16/23 13:01:00 EST, Height, kg, [...] BID, # 180 tab(s), 3 Refill(s), Pharmacy: [facility] #[id number], 152, cm, 03/16/22 11:29:00 EST, Height, kg, 03/16/22 11:29:00 EST, Dosing Weight Start Date: 03/16/22 Status: Ordered Start: 10-07-2021 carvedilol 6.2 5 mg oral tablet Dose : 6.25 mg = 1 tab(s), Oral, BID, # 180 tab(s), 0 Refill(s), Pharmacy: [facility], 152, cm, 10/07/21 11:52:00 EDT, Height, kg, 10/07/21 11:52:00 EDT, Dosing Weight Start Date: 10/07/21 Status: Ordered Start: 05-11-2021 carvedilol 6.2 5 mg oral tablet Dose : 6.25 mg = 1 tab(s), Oral, BID, # 60 tab(s), 0 Refill(s), [facility]acy: [id number], 152, cm, 03/24/21 14:16:00 EST, Height, kg, 03/24/21 14:16:00 EST, Dosing Weight Start Date: 05/11/21 Status: Ordered Start: 01-22-2021 End: 04-22-2021 carvedilol 6.25 mg oral tabl et Dose : 6.25 mg = 1 tab(s), Oral, BID, # 180 tab(s), 0 Refill(s), Pharmacy: [facility], 162, cm, 01/22/21 11:35:00 EST, [...] water, # 90 cap(s), 1 Refill(s), Pharmacy: [facility]/pharmacy #[id number], 157.3, cm, 12/23/23 11:27:00 EDT, Height, kg, 12/23/23 11:27:00 EDT, Dosing Weight Start Date: 12/23/23 Stop Date: 06/20/24 Status: Ordered Quantity: 90.0 Unit: cap(s) Repeat number: 2 Start: 03-16-2023 End: 09-12-2023 docusate calcium 240 mg oral capsule Dose : 240 mg = 1 cap(s), Oral, qDay, with plenty of water, # 90 cap(s), 1 Refill(s), Pharmacy: [facility] #[id number], 160, cm, 03/16/23 13:01:00 EST, Height, kg, [...] symptoms, # 16 gram(s), 0 Refill(s), Pharmacy: [address], Eustachian tube dysfunction Start Date: 03/21/19 [...] qDay, # 90 tab(s), 3 Refill(s), Pharmacy: [facility]/pharmacy #[id number], 157.5, cm, 09/13/23 14:59:00 EDT, Height, kg, 09/13/23 14:59:00 EDT, Dosing Weight Start Date: 10/11/23 Status: Ordered Quantity: 90.0 Unit: tab(s) Repeat number: 4 Start: 02-04-2023 take 1 tablet by yrn th once daily isosorbide mononitrate 30 mg oral tablet, extended release 1 tab(s), Oral, qDay, # 90 tab(s), 3 Refill(s), Pharmacy: [facility] #[id number], 152, cm, 01/11/23 15:09:00 EST, Height, kg, 01/11/23 15:09:00 EST, Dosing Weight Start Date: 02/04/23 Status: Ordered Start: 11-04-2022 take 1 tablet by yrn th once daily in the morning isosorbide mononitrate 30 mg oral tablet, extended release 1 tab(s), Oral, qAM, # 90 tab(s), 0 Refill(s), Pharmacy: [facility] #[id number], 152, cm, 10/15/22 13:36:00 EDT, Height, kg, 10/15/22 13:36:00 EDT, Dosing Weight Start Date: 11/04/22 Status: Ordered Start: 05-17-2022 take 1 tablet by yrn th once daily in the morning isosorbide mononitrate 30 mg oral tablet, extended release 1 tab(s), Oral, qAM, # 90 tab(s), 3 Refill(s), Pharmacy: [facility], 152, cm, 03/16/22 11:29:00 EST, Height, kg, 03/16/22 11:29:00 EST, Dosing Weight Start Date: 05/17/22 Status: Ordered Start: 02-16-2022 take 1 tablet by yrn th once daily in the morning isosorbide mononitrate 30 mg oral tablet, extended release 1 tab(s), Oral, qAM, # 30 tab(s), 2 Refill(s), Pharmacy: [facility] #[id number], 152, cm, 10/07/21 11:52:00 EDT, Height, kg, 10/07/21 11:52:00 EDT, Dosing Weight Start Date: 02/16/22 Status: Ordered Start: 09-01-2020 isosorbide mon onitrate 30 mg oral tablet, extended release Dose : 30 mg = 1 tab(s), Oral, qAM, # 90 tab(s), 3 Refill(s), Pharmacy: [facility], 162, cm, 09/01/20 13:18:00 EDT, Height, kg, 09/01/20 13:18:00 EDT, Dosing Weight Start Date: 09/01/20 Status: Ordered levoFLOXacin 250 mg oral tablet (2 sources) Quinolone Antimicrobial Start: 01-22-2021 levoFLOXacin 250 mg oral tablet See Instructions, Take 2 tabs for first dose p.o., then take 1 tab every 48 hours thereafter., # 4 tab(s), 0 Refill(s), Pharmacy: [facility] 162, cm, 01/22/21 11:35:00 EST, Height, 60.5, kg, 01/22/21 11:35:00 EST, Dosing Weight Start Date: 01/22/21 Status: Ordered levothyroxine sodium 0.075 mg oral tablet (20 sources) l-Thyroxine Start: 10-03-2024 levothyroxine 75 mcg (0.075 mg) oral tablet Dose : 75 mcg = 1 tab(s), Oral, qDayAC, as a single daily dose before breakfast, # 90 tab(s), 1 Refill(s), Pharmacy: [facility]/pharmacy #[id number], 157.5, cm, 09/25/24 14:29:00 EDT, Height, [...] breakfast, # 90 tab(s), 2 Refill(s), Pharmacy: [facility]/pharmacy #[id number], 157.3, cm, 12/23/23 11:27:00 EDT, Height, [...] 90 tab(s), 3 Refill(s), Pharmacy: [facility] #[id number], 152, cm, 10/15/22 13:36:00 EDT, Height, kg, 10/15/22 13:36:00 EDT, Dosing Weight Start Date: 10/19/22 Stop Date: 10/14/23 Status: Ordered Start: 01-19-2022 End: 02-02-2022 levothyroxine 88 mcg (0.088 mg) oral tablet Dose : 88 mcg = 1 tab(s), Oral, qDayAC, as a single daily dose before breakfast, # 14 tab(s), 0 Refill(s), Pharmacy: [facility] #[id number], 152, cm, 10/07/21 11:52:00 EDT, Height, kg, 10/07/21 11:52:00 EDT, Dosing Weight Start Date: 01/19/22 Stop Date: 02/02/22 Status: Ordered Start: 10-07-2021 levothyroxine 100 mcg (0.1 mg) oral tablet Dose : 100 mcg = 1 tab(s), Oral, qDay, # 90 tab(s), 1 Refill(s), Pharmacy: [facility], 152, cm, 10/07/21 11:52:00 EDT, Height, kg, 10/07/21 11:52:00 EDT, Dosing Weight Start Date: 10/07/21 Status: Ordered Start: 05-11-2021 levothyroxine 100 mcg (0.1 mg) oral tablet Dose : 100 mcg = 1 tab(s), Oral, qDay, # 30 tab(s), 0 Refill(s), Pharmacy: [facility], 152, cm, 03/24/21 14:16:00 EST, Height, kg, 03/24/21 14:16:00 EST, Dosing Weight Start Date: 05/11/21 Status: Ordered Start: 01-22-2021 End: 04-22-2021 levothyroxine 100 mcg (0.1 m g) oral tablet Dose : 100 mcg = 1 tab(s), Oral, qDay, # 90 tab(s), 0 Refill(s), Pharmacy: [facility], 162, cm, 01/22/21 11:35:00 EST, Height, kg, [...] crush/chew, # 30 cap(s), 0 Refill(s), Pharmacy: [facility]/pharmacy #[id number], 162.4, cm, 09/06/24 9:27:00 EDT, Height, [...] each, # 22 gram(s), 0 Refill(s), Pharmacy: [facility] #[id number], Ointment, 162.6, cm, 02/22/23 12:49:00 EST, Height, [...] Ordered Repeat number: 1 polyethylene glycol 3350 62640 mg powder for oral solution (7 sources) [...] 01/27/21 12:29:00 EST, Pharmacy: [id number], 162, cm, 01/22/21 11:35:00 EST, [...] food, # 90 cap(s), 3 Refill(s), Pharmacy: [facility], 152, cm, 10/15/22 13:36:00 EDT, Height, kg, 10/15/22 13:36:00 EDT, Dosing Weight Start Date: 10/15/22 Stop Date: 10/10/23 Status: Ordered Start: 10-07-2021 End: 04-05-2022 Vitamin D3 50 mcg (2000 intl units) oral capsule Dose : 2,000 unit(s) = 1 cap(s), Oral, Daily, # 90 cap(s), 1 Refill(s), Pharmacy: [facility], 152, cm, 10/07/21 11:52:00 EDT, Height, kg, 10/07/21 11:52:00 EDT, Dosing Weight Start Date: 10/07/21 Stop Date: 04/05/22 Status: Ordered Start: 01-22-2021 End: 04-22-2021 Vitamin D3 50 mcg (2000 intl units) oral capsule Dose : 2,000 unit(s) = 1 cap(s), Oral, Daily, # 90 cap(s), 0 Refill(s), Pharmacy: [facility], 162, cm, 01/22/21 11:35:00 [...] 1 EA, 3 Refill(s), Pharmacy: [facility] #[id number], 162.6, cm, 02/24/23 10:08:00 EST, Height, kg, [...] wheezing, # 1 EA, 3 Refill(s), Pharmacy: [facility] #[id number], 162.6, cm, 02/24/23 10:08:00 EST, Height, kg, [...] 1 EA, 3 Refill(s), Pharmacy: [facility] #[id number], 162.6, cm, 02/24/23 10:08:00 EST, Height, kg, [...] dose, # 180 tab(s), 0 Refill(s), Pharmacy: [facility], 152, cm, 10/07/21 11:52:00 EDT, Height Start Date: 10/07/21 Stop Date: 01/05/22 Status: Ordered Medication Dispense Status: Completed Quantity: 180.0 Unit: tab(s) Total Allowed Fills: 1 Fills Dispensed: 0 nystatin [id number] unt/ml topical cream (16 sources) Polyene Antifungal Start: 09-25-2024 End: 11-24-2024 nystatin 100,000 units/g topical cream Apply 1 keisha, Topical, BID, PRN Rash, Apply to the affected area twice daily until healing complete., # 45 gram(s), 1 Refill(s), Pharmacy: [facility]/pharmacy #[id number], Cream, 157.5, cm, 09/25/24 14:29:00 EDT, [...] day(s), # 60 gram(s), 1 Refill(s), Pharmacy: [facility] #[id number], Powder, 160, cm, 03/16/23 13:01:00 EST, Height, 61, kg, 03/16/23 13:01:00 EST, Dosing Weight Start Date: 03/16/23 Stop Date: 05/15/23 Status: Ordered Start: 10-15-2022 End: 12-14-2022 nystatin 100,000 units/g top ical cream Apply 1 keisha, Topical, BID, PRN Rash, Apply to the affected area upper abdomen rash twice daily until healing complete., # 30 gram(s), 1 Refill(s), Pharmacy: [facility] #[id number], Cream, 152, cm, 10/15/22 13:36:00 EDT, Height, [...] water, # 90 tab(s), 1 Refill(s), Pharmacy: [facility], 152, cm, 10/07/21 11:52:00 EDT, [...] # 1 EA, 2 Refill(s), Pharmacy: [facility] #[id number], 162.6, cm, 02/24/23 10:08:00 EST, Height, kg, [...] heart disease (20 sources) 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 [...] aftercare (2 sources) Drug therapy finding; Translations: [[employer]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] 04-24-2019 Episodic Other [...] Per chest x-ray 12/22 9 per [facility] hospitalization records Other lower respiratory disease (20 [...] Comment on above: per hospital records [facility] 01/09 Other nervous system disorders (20 sources) [...] CT OF THE ABDOMEN AND PELVIS WITH [id number]/21/2025 1:22 pm TECHNIQUE: CT of the abdomen [...] 4:29:05 PM Ordering Provider: LONNIE JAVIER Normal [facility] W[facility] C[facility] History AND Physic vicky 10-11-2024 Wound Ctr History & Physical [facility] [address] [place] [id number] H P Exam - Wound Care 10/11/24 1023 MR#: [id number] Acct: [id number] Name: ROSA LANDERS Rep #: [id number] : 1940 84 From: Snow Gunderson MD [...] no open area identified. Feels well otherwise[facility] Medical History (Updated 10/12/24 @ 17:48 by [...] to inspection (more content not included)... Normal [facility] .Auto Diffon 09-25-2024 Basophil, Absolute 0.0 10 3/mcL Normal 0.0-0.3 [facility] Comment on above: Performed By: #### T SHR, CMP, GFR #### [address] [address] Basophils/100 WBC (Bld) 0.3 % Normal 0.0-2.5 [facility] Comment on above: Performed By: #### T SHR, CMP, GFR #### [address] [place], [place] [address] Eosinophil, Absolute 0.1 10 3/mcL Normal 0.0-0.7 [facility] Comment on above: Performed By: #### T SHR, CMP, GFR #### [address] [address] Eosinophils/100 WBC (Bld) 1.8 % Normal 0.0-6.0 [facility] Comment on above: Performed By: #### T SHR, CMP, GFR #### [address] [address] Lymphocyte, Absolute 1.5 10 3/mcL Normal 0.9-4.3 [facility] Comment on above: Performed By: #### T LAUREN, CMP, GFR #### [address] [address] Lymphocytes/100 WBC (Bld) 23.2 % Normal 20.0-40.0 [facility] Comment on above: Performed By: #### T LAUREN, CMP, GFR #### [address] [address] Monocyte, Absolute 0.6 10 3/mcL Normal 0.1-1.4 [facility] Comment on above: Performed By: #### T LAUREN, CMP, GFR #### [address] [address] Monocytes/100 WBC (Bld) 9.1 % Normal 2.0-13.0 [facility] Comment on above: Performed By: #### T LAUREN, CMP, GFR #### [address] [address] Neutrophils/100 WBC (Bld) 65.6 % Normal 50.0-75.0 [facility] Comment on above: Performed By: #### T LAUREN, CMP, GFR #### [address] [address] .GFRon 09-25-2024 Estimated Glomerular Filtration Rate 48 ml/min/1.73sqm Normal [facility] Comment on above: Result Comment: Stages of [...] By: #### T SHR, CMP, GFR #### [address] [address] .NEUABSon 09-25-2024 Neutrophil, Absolute 4.3 10 3/mcL Normal 2.3-8.1 [facility] Comment on above: Performed By: #### T SHR, CMP, GFR #### [place] [address] BILAIon 09-25-2024 Bili Indirect 1.1 mg/dL Normal [facility] Comment on above: Performed By: #### T SHR, CMP, GFR #### [place] [address] Bili Direct 0.3 mg/dL High 0.0-0.2 [facility] Comment on above: Result Comment: Use of this assay is not recommended for patients undergoing treatment with eltrombopag due to the potential for falsely elevated results. Performed By: #### T SHR, CMP, GFR #### [place] [address] Bili Total 1.4 mg/dL High 0.2-1.0 [facility] Comment on above: Result Comment: Use of this assay is not recommended for patients undergoing treatment with eltrombopag due to the potential for falsely elevated results. Performed By: #### T SHR, CMP, GFR #### [place] [address] BMPon 09-25-2024 BUN/Creatinine Ratio 21 ratio Normal 7-27 [facility] Comment on above: Performed By: #### T SHR, CMP, GFR #### [address] [address] Calcium [Mass/Vol] 9.4 mg/dL Normal 8.4-10.2 [facility] Comment on above: Performed By: #### T SHR, CMP, GFR #### [address] [address] Chloride [Moles/Vol] 105 mmol/L Normal 98-107 [facility] Comment on above: Performed By: #### T SHR, CMP, GFR #### [address] [address] CO2 [Moles/Vol] 26 mmol/L Normal 23-31 [facility] Comment on above: Performed By: #### T SHR, CMP, GFR #### [address] [address] Creatinine [Mass/Vol] 1.13 mg/dL High 0.51-0.95 [facility] Comment on above: Performed By: #### T SHR, CMP, GFR #### [address] [address] Electrolyte Balance 11.0 mEq/L Normal 4.0-15.0 [facility] Comment on above: Performed By: #### T SHR, CMP, GFR #### [address] [address] Glucose [Mass/Vol] 84 mg/dL Normal 83-110 [facility] Comment on above: Performed By: #### T SHR, CMP, GFR #### [address] [address] Potassium [Moles/Vol] 4.4 mmol/L Normal 3.5-5.1 [facility] Comment on above: Performed By: #### T SHR, CMP, GFR #### [address] [address] Sodium [Moles/Vol] 142 mmol/L Normal 136-145 [facility] Comment on above: Performed By: #### T SHR, CMP, GFR #### [address] [address] Urea nitrogen [Mass/Vol] 24 mg/dL High 7-18 [facility] Comment on above: Performed By: #### T SHR, CMP, GFR #### [address] [address] CBCon 09-25-2024 Erythrocyte distribution width (RBC) [Ratio] 13.6 % Normal 11.5-15.5 [facility] Comment on above: Performed By: #### T SHR, CMP, GFR #### [address] [address] Hematocrit (Bld) [Volume fraction] 39.1 % Normal 34.0-46.0 [facility] Comment on above: Performed By: #### T SHR, CMP, GFR #### [address] [address] Hgb 13.3 G/dL Normal 12.0-16.0 [facility] Comment on above: Performed By: #### T SHR, CMP, GFR #### [address] [address] MCH (RBC) [Entitic mass] 31.9 pg Normal 27.0-33.0 [facility] Comment on above: Performed By: #### T SHR, CMP, GFR #### [address] [address] MCHC 34.0 G/dL Normal 32.0-36.0 [facility] Comment on above: Performed By: #### T SHR, CMP, GFR #### [address] [address] MCV (RBC) [Entitic vol] 93.8 fL Normal 80.0-99.0 [facility] Comment on above: Performed By: #### T SHR, CMP, GFR #### [address] [address] Platelet 167 10 3/mcL Normal 150-450 [facility] Comment on above: Performed By: #### T SHR, CMP, GFR #### [address] [place], [place] [address] Platelet mean volume (Bld) [Entitic vol] 8.3 fL Normal 6.6-10.5 [facility] Comment on above: Performed By: #### T SHR, CMP, GFR #### [facility] [address] [place], [place] [address] RBC 4.17 10 6/mcL Normal 4.10-5.30 [facility] Comment on above: Performed By: #### T SHR, CMP, GFR #### [facility] [address] [place], [place] [address] WBC 6.6 10 3/mcL Normal 4.5-10.8 [facility] Comment on above: Performed By: #### T SHR, CMP, GFR #### [address] [place], [place] [address] LABORATORYOrdered By: SYSTEM SYSTEM on 09-25-2024 Basophils [...] 09-25-2024 TSH Qn 2.24 m[IU]/L Normal 0.36-3.74 [facility] Comment on above: Performed By: #### T SHR, CMP, GFR #### [address] [address] .Auto Diffon 09-04-2024 Basophil, Absolute 0.0 10 3/mcL Normal 0.0-0.3 [facility] Comment on above: Performed By: #### A DIFF, CBC, GFR, ANEU, CMP, LIP, MDW #### [address] [place], [place] [address] Basophils/100 WBC (Bld) 0.4 % Normal 0.0-2.5 [facility] Comment on above: Performed By: #### A DIFF, CBC, GFR, ANEU, CMP, LIP, MDW #### [address] [address] Eosinophil, Absolute 0.1 10 3/mcL Normal 0.0-0.7 [facility] Comment on above: Performed By: #### A DIFF, CBC, GFR, ANEU, CMP, LIP, MDW #### [address] [address] Eosinophils/100 WBC (Bld) 2.4 % Normal 0.0-6.0 [facility] Comment on above: Performed By: #### A DIFF, CBC, GFR, ANEU, CMP, LIP, MDW #### [address] [address] Lymphocyte, Absolute 1.3 10 3/mcL Normal 0.9-4.3 [facility] Comment on above: Performed By: #### A DIFF, CBC, GFR, ANEU, CMP, LIP, MDW #### [address] [address] Lymphocytes/100 WBC (Bld) 24.2 % Normal 20.0-40.0 [facility] Comment on above: Performed By: #### A DIFF, CBC, GFR, ANEU, CMP, LIP, MDW #### [address] [address] Monocyte, Absolute 0.5 10 3/mcL Normal 0.1-1.4 [facility] Comment on above: Performed By: #### A DIFF, CBC, GFR, ANEU, CMP, LIP, MDW #### [address] [address] Monocytes/100 WBC (Bld) 8.4 % Normal 2.0-13.0 [facility] Comment on above: Performed By: #### A DIFF, CBC, GFR, ANEU, CMP, LIP, MDW #### [address] [address] Neutrophils/100 WBC (Bld) 64.6 % Normal 50.0-75.0 [facility] Comment on above: Performed By: #### A DIFF, CBC, GFR, ANEU, CMP, LIP, W #### [address] [address] .GFRon 09-04-2024 Estimated Glomerular Filtration Rate 54 ml/min/1.73sqm Normal [facility] Comment on above: Result Comment: Stages of [...] CBC, GFR, ANEU, CMP, LIP, MDW #### [address] [address] .MDWon 09-04-2024 Monocyte Distribution Width 17.89 Normal 0.00-20.00 [facility] Comment on above: Result Comment: For ED adult patients suspected of sepsis, MDW<=20.0 does not rule out sepsis or risk of sepsis Performed By: #### A DIFF, CBC, GFR, ANEU, CMP, LIP, W #### [address] [address] .NEUABSon 09-04-2024 Neutrophil, Absolute 3.5 10 3/mcL Normal 2.3-8.1 [facility] Comment on above: Performed By: #### A DIFF, CBC, GFR, ANEU, CMP, LIP, MDW #### [address] [address] CBCon 09-04-2024 Erythrocyte distribution width (RBC) [Ratio] 13.7 % Normal 11.5-15.5 [facility] Comment on above: Performed By: #### A DIFF, CBC, GFR, ANEU, CMP, LIP, W #### [address] [address] Hematocrit (Bld) [Volume fraction] 38.2 % Normal 34.0-46.0 [facility] Comment on above: Performed By: #### A DIFF, CBC, GFR, ANEU, CMP, LIP, W #### [address] [address] Hgb 12.9 G/dL Normal 12.0-16.0 [facility] Comment on above: Performed By: #### A DIFF, CBC, GFR, ANEU, CMP, LIP, W #### [address] [address] MCH (RBC) [Entitic mass] 31.6 pg Normal 27.0-33.0 [facility] Comment on above: Performed By: #### A DIFF, CBC, GFR, ANEU, CMP, LIP, W #### [address] [address] MCHC 33.8 G/dL Normal 32.0-36.0 [facility] Comment on above: Performed By: #### A DIFF, CBC, GFR, ANEU, CMP, LIP, MDW #### [address] [address] MCV (RBC) [Entitic vol] 93.6 fL Normal 80.0-99.0 [facility] Comment on above: Performed By: #### A DIFF, CBC, GFR, ANEU, CMP, LIP, W #### [address] [address] Platelet 140 10 3/mcL Low 150-450 [facility] Comment on above: Performed By: #### A DIFF, CBC, GFR, ANEU, CMP, LIP, MDW #### [address] [address] Platelet mean volume (Bld) [Entitic vol] 8.0 fL Normal 6.6-10.5 [facility] Comment on above: Performed By: #### A DIFF, CBC, GFR, ANEU, CMP, LIP, MDW #### [address] [address] RBC 4.08 10 6/mcL Low 4.10-5.30 [facility] Comment on above: Performed By: #### A DIFF, CBC, GFR, ANEU, CMP, LIP, MDW #### [address] [address] WBC 5.5 10 3/mcL Normal 4.5-10.8 [facility] Comment on above: Performed By: #### A DIFF, CBC, GFR, ANEU, CMP, LIP, MDW #### [address] [address] CMPon 09-04-2024 Albumin Level 3.5 G/dL Normal 3.4-4.8 [facility] Comment on above: Performed By: #### A DIFF, CBC, GFR, ANEU, CMP, LIP, MDW #### [address] [address] Albumin/Globulin [Mass ratio] 1.0 {ratio} Low 1.1-2.5 [facility] Comment on above: Performed By: #### A DIFF, CBC, GFR, ANEU, CMP, LIP, MDW #### [address] [address] ALP [Catalytic activity/Vol] 112 U/L Normal 40-135 [facility] Comment on above: Performed By: #### A DIFF, CBC, GFR, ANEU, CMP, LIP, MDW #### [address] [address] ALT [Catalytic activity/Vol] 23 U/L Normal 14-59 [facility] Comment on above: Performed By: #### A DIFF, CBC, GFR, ANEU, CMP, LIP, MDW #### [address] [address] AST [Catalytic activity/Vol] 26 U/L Normal 10-40 [facility] Comment on above: Performed By: #### A DIFF, CBC, GFR, ANEU, CMP, LIP, MDW #### [address] [address] Bili Total 1.2 mg/dL High 0.2-1.0 [facility] Comment on above: Result Comment: Use of this assay is not recommended for patients undergoing treatment with eltrombopag due to the potential for falsely elevated results. Performed By: #### A DIFF, CBC, GFR, ANEU, CMP, LIP, W #### [address] [address] BUN/Creatinine Ratio 22 ratio Normal 7-27 [facility] Comment on above: Performed By: #### A DIFF, CBC, GFR, ANEU, CMP, LIP, W #### [address] [address] Calcium [Mass/Vol] 8.7 mg/dL Normal 8.4-10.2 [facility] Comment on above: Performed By: #### A DIFF, CBC, GFR, ANEU, CMP, LIP, W #### [address] [address] Chloride [Moles/Vol] 106 mmol/L Normal 98-107 [facility] Comment on above: Performed By: #### A DIFF, CBC, GFR, ANEU, CMP, LIP, JEFFERY #### [address] [address] CO2 [Moles/Vol] 26 mmol/L Normal 23-31 [facility] Comment on above: Performed By: #### A DIFF, CBC, GFR, ANEU, CMP, LIP, JEFFERY #### [address] [address] Creatinine [Mass/Vol] 1.03 mg/dL High 0.51-0.95 [facility] Comment on above: Performed By: #### A DIFF, CBC, GFR, ANEU, CMP, LIP, MDW #### [address] [address] Electrolyte Balance 8.0 mEq/L Normal 4.0-15.0 [facility] Comment on above: Performed By: #### A DIFF, CBC, GFR, ANEU, CMP, LIP, W #### [address] [address] Globulin 3.4 G/dL Normal 2.7-4.4 [facility] Comment on above: Performed By: #### A DIFF, CBC, GFR, ANEU, CMP, LIP, W #### [address] [address] Glucose [Mass/Vol] 93 mg/dL Normal 83-110 [facility] Comment on above: Performed By: #### A DIFF, CBC, GFR, ANEU, CMP, LIP, W #### [address] [address] Potassium [Moles/Vol] 4.0 mmol/L Normal 3.5-5.1 [facility] Comment on above: Performed By: #### A DIFF, CBC, GFR, ANEU, CMP, LIP, JEFFERY #### [address] [address] Sodium [Moles/Vol] 140 mmol/L Normal 136-145 [facility] Comment on above: Performed By: #### A DIFF, CBC, GFR, ANEU, CMP, LIP, JEFFERY #### [address] [address] Total Protein 6.9 G/dL Normal 6.4-8.2 [facility] Comment on above: Performed By: #### A DIFF, CBC, GFR, ANEU, CMP, LIP, JEFFERY #### [address] [address] Urea nitrogen [Mass/Vol] 23 mg/dL High 7-18 [facility] Comment on above: Performed By: #### A DIFF, CBC, GFR, ANEU, CMP, LIP, W #### [address] [address] [address] ABD/PELVIS W/ IV CONTRAST ONLYon 09-04-2024 [...] 09/04/2024 6:20:02 PM Ordering Provider: RA HARTMANN [facility] CT THORAX W/O CONTRASTon CT THORAX [...] 09/04/2024 4:13:45 PM Ordering Provider: EDY Henderson [facility] LABORATORYOrdered By: SYSTEM SYSTEM on 09-04-2024 Albumin [...] 09-04-2024 Lipase Level 19 U/L Normal 16-77 [facility] Comment on above: Performed By: #### A DIFF, CBC, GFR, ANEU, CMP, LIP, MDW #### [address] [place], [place] [address] MRI BRAIN W/ + W/O CONTRASTo n [...] 3:44:14 PM Ordering Provider: EDY SALOMON Normal [facility] UAon 09-04-2024 Color (U) Yellow Normal [facility] Comment on above: Performed By: #### A DIFF, CBC, GFR, ANEU, CMP, LIP, MDW #### [address] [address] Glucose (U) [Mass/Vol] Negative Normal Negative [facility] Comment on above: Performed By: #### A DIFF, CBC, GFR, ANEU, CMP, LIP, MDW #### [address] [address] Ketones Ql (U) Negative Normal Negative [facility] Comment on above: Performed By: #### A DIFF, CBC, GFR, ANEU, CMP, LIP, MDW #### [place] [address] UA Appear Clear Normal Clear [facility] Comment on above: Performed By: #### A DIFF, CBC, GFR, ANEU, CMP, LIP, MDW #### [address] [address] UA Blood Negative Normal Negative [facility] Comment on above: Performed By: #### A DIFF, CBC, GFR, ANEU, CMP, LIP, MDW #### [address] [address] UA Leuk Est Negative Normal Negative [facility] Comment on above: Performed By: #### A DIFF, CBC, GFR, ANEU, CMP, LIP, MDW #### [address] [address] UA Nitrite Negative Normal Negative [facility] Comment on above: Performed By: #### A DIFF, CBC, GFR, ANEU, CMP, LIP, MDW #### [address] [address] UA pH 6.0 Normal 5.0 - 8.0 [facility] Comment on above: Performed By: #### A DIFF, CBC, GFR, ANEU, CMP, LIP, MDW #### [address] [address] UA Protein Negative Normal Negative [facility] Comment on above: Performed By: #### A DIFF, CBC, GFR, ANEU, CMP, LIP, MDW #### [address] [address] UA Spec Grav 1.020 Normal 1.015-1.025 [facility] Comment on above: Performed By: #### A DIFF, CBC, GFR, ANEU, CMP, LIP, MDW #### [address] [address] UA Specimen Type Void Normal [facility] Comment on above: Performed By: #### A DIFF, CBC, GFR, ANEU, CMP, LIP, MDW #### [address] [address] UA Urobilinogen 0.2 E.U./dL Normal 0.2-1.0 [facility] Comment on above: Performed By: #### A DIFF, CBC, GFR, ANEU, CMP, LIP, MDW #### [address] [address] Urobilinogen (U) [Mass/Vol] Negative Normal Negative [facility] Comment on above: Performed By: #### A DIFF, CBC, GFR, ANEU, CMP, LIP, MDW #### [address] [address] .Auto Diffon 08-29-2024 Basophil, Absolute 0.0 10 3/mcL Normal 0.0-0.3 [facility] Comment on above: Performed By: #### T SHR, CMP, GFR #### [address] [address] Basophils/100 WBC (Bld) 0.4 % Normal 0.0-2.5 [facility] Comment on above: Performed By: #### T SHR, CMP, GFR #### [address] [address] Eosinophil, Absolute 0.1 10 3/mcL Normal 0.0-0.7 [facility] Comment on above: Performed By: #### T SHR, CMP, GFR #### [address] [address] Eosinophils/100 WBC (Bld) 1.6 % Normal 0.0-6.0 [facility] Comment on above: Performed By: #### T SHR, CMP, GFR #### [address] [address] Lymphocyte, Absolute 1.2 10 3/mcL Normal 0.9-4.3 [facility] Comment on above: Performed By: #### T SHR, CMP, GFR #### [address] [address] Lymphocytes/100 WBC (Bld) 16.7 % Low 20.0-40.0 [facility] Comment on above: Performed By: #### T LAUREN, CMP, GFR #### [address] [address] Monocyte, Absolute 0.6 10 3/mcL Normal 0.1-1.4 [facility] Comment on above: Performed By: #### T LAUREN, CMP, GFR #### [address] [address] Monocytes/100 WBC (Bld) 7.5 % Normal 2.0-13.0 [facility] Comment on above: Performed By: #### T LAUREN, CMP, GFR #### [address] [address] Neutrophils/100 WBC (Bld) 73.8 % Normal 50.0-75.0 [facility] Comment on above: Performed By: #### T SHR, CMP, GFR #### [address] [address] .GFRon 08-29-2024 Estimated Glomerular Filtration Rate 52 ml/min/1.73sqm Normal [facility] Comment on above: Result Comment: Stages of [...] By: #### T LAUREN, CMP, GFR #### [address] [address] .NEUABSon 08-29-2024 Neutrophil, Absolute 5.5 10 3/mcL Normal 2.3-8.1 [facility] Comment on above: Performed By: #### T SHR, CMP, GFR #### [address] [address] CBCon 08-29-2024 Erythrocyte distribution width (RBC) [Ratio] 13.6 % Normal 11.5-15.5 [facility] Comment on above: Performed By: #### T LAUREN, CMP, GFR #### [place] [id number] Hematocrit (Bld) [Volume fraction] 42.6 % Normal 34.0-46.0 [facility] Comment on above: Performed By: #### T SHR, CMP, GFR #### [place] [id number] Hgb 14.4 G/dL Normal 12.0-16.0 [facility] Comment on above: Performed By: #### T SHR, CMP, GFR #### [address] [address] MCH (RBC) [Entitic mass] 31.7 pg Normal 27.0-33.0 [facility] Comment on above: Performed By: #### T SHR, CMP, GFR #### [place] [id number] MCHC 33.8 G/dL Normal 32.0-36.0 [facility] Comment on above: Performed By: #### T SHR, CMP, GFR #### [address] [address] MCV (RBC) [Entitic vol] 93.7 fL Normal 80.0-99.0 [facility] Comment on above: Performed By: #### T SHR, CMP, GFR #### [address] [address] Platelet 169 10 3/mcL Normal 150-450 [facility] Comment on above: Performed By: #### T SHR, CMP, GFR #### [address] [address] Platelet mean volume (Bld) [Entitic vol] 8.1 fL Normal 6.6-10.5 [facility] Comment on above: Performed By: #### T SHR, CMP, GFR #### [address] [address] RBC 4.55 10 6/mcL Normal 4.10-5.30 [facility] Comment on above: Performed By: #### T SHR, CMP, GFR #### [address] [address] WBC 7.4 10 3/mcL Normal 4.5-10.8 [facility] Comment on above: Performed By: #### T SHR, CMP, GFR #### [address] [address] CMPon 08-29-2024 Albumin Level 4.0 G/dL Normal 3.4-4.8 [facility] Comment on above: Performed By: #### T SHR, CMP, GFR #### [address] [address] Albumin/Globulin [Mass ratio] 1.0 {ratio} Low 1.1-2.5 [facility] Comment on above: Performed By: #### T SHR, CMP, GFR #### [address] [address] ALP [Catalytic activity/Vol] 120 U/L Normal 40-135 [facility] Comment on above: Performed By: #### T SHR, CMP, GFR #### [address] [address] ALT [Catalytic activity/Vol] 29 U/L Normal 14-59 [facility] Comment on above: Performed By: #### T SHR, CMP, GFR #### [address] [address] AST [Catalytic activity/Vol] 29 U/L Normal 10-40 [facility] Comment on above: Performed By: #### T SHR, CMP, GFR #### [address] [address] Bili Total 1.8 mg/dL High 0.2-1.0 [facility] Comment on above: Result Comment: Use of this assay is not recommended for patients undergoing treatment with eltrombopag due to the potential for falsely elevated results. Performed By: #### T SHR, CMP, GFR #### [place] [address] BUN/Creatinine Ratio 22 ratio Normal 7-27 [facility] Comment on above: Performed By: #### T SHR, CMP, GFR #### [place] [address] Calcium [Mass/Vol] 9.4 mg/dL Normal 8.4-10.2 [facility] Comment on above: Performed By: #### T SHR, CMP, GFR #### [place] [address] Chloride [Moles/Vol] 107 mmol/L Normal 98-107 [facility] Comment on above: Performed By: #### T SHR, CMP, GFR #### [place] [address] CO2 [Moles/Vol] 30 mmol/L Normal 23-31 [facility] Comment on above: Performed By: #### T SHR, CMP, GFR #### [place] [address] Creatinine [Mass/Vol] 1.06 mg/dL High 0.51-0.95 [facility] Comment on above: Performed By: #### T SHR, CMP, GFR #### [place] [address] Electrolyte Balance 8.0 mEq/L Normal 4.0-15.0 [facility] Comment on above: Performed By: #### T SHR, CMP, GFR #### [address] [address] Globulin 4.2 G/dL Normal 2.7-4.4 [facility] Comment on above: Performed By: #### T SHR, CMP, GFR #### [address] [address] Glucose [Mass/Vol] 121 mg/dL High 83-110 [facility] Comment on above: Performed By: #### T SHR, CMP, GFR #### [address] [address] Potassium [Moles/Vol] 3.8 mmol/L Normal 3.5-5.1 [facility] Comment on above: Performed By: #### T SHR, CMP, GFR #### [address] [address] Sodium [Moles/Vol] 145 mmol/L Normal 136-145 [facility] Comment on above: Performed By: #### T SHR, CMP, GFR #### [address] [address] Total Protein 8.2 G/dL Normal 6.4-8.2 [facility] Comment on above: Performed By: #### T SHR, CMP, GFR #### [address] [address] Urea nitrogen [Mass/Vol] 23 mg/dL High 7-18 [facility] Comment on above: Performed By: #### T SHR, CMP, GFR #### [address] [address] LABORATORYOrdered By: SYSTEM SYSTEM on 08-29-2024 25-hydroxyvitamin [...] 10^3/mcL AO Workflow SS LABORATORYOrdered By: Edelmira Butron on 08-29-2024 Cholesterol [Mass/Vol] 139 mg/dL Normal [...] 08-29-2024 Cholesterol [Mass/Vol] 139 mg/dL Normal 0-200 [facility] Comment on above: Result Comment: Chol esterol Reference Interval: Less than 200 Desirable 200-239 Borderline high risk 240 and above High risk Performed By: #### T SHR, CMP, GFR #### [address] [address] Cholesterol in HDL [Mass/Vol] 64 mg/dL High 40-60 [facility] Comment on above: Performed By: #### T SHR, CMP, GFR #### [address] [address] Cholesterol in LDL [Mass/Vol] 54 mg/dL Normal 0-130 [facility] Comment on above: Performed By: #### T SHR, CMP, GFR #### [address] [address] Triglyceride [Mass/Vol] 103 mg/dL Normal 0-150 [facility] Comment on above: Result Comment: Trig lyceride Reference Interval: Less than 150 Normal 150-199 Borderline high risk 200-499 High risk 500 or higher Very high risk Performed By: #### T SHR, CMP, GFR #### [address] [address] MGon 08-29-2024 Magnesium [Mass/Vol] 2.3 mg/dL Normal 1.8-2.4 [facility] Comment on above: Performed By: #### T SHR, CMP, GFR #### [address] [address] PBNPon 08-29-2024 Natriuretic peptide B (Bld) [Mass/Vol] 384 pg/mL Normal 0-450 [facility] Comment on above: Result Comment: NT-p roBNP results of less than 300 pg/mL effectively rules out acute congestive heart failure with 99% negative predictive value. Performed By: #### T SHR, CMP, GFR #### [address] [address] TSHRon 08-29-2024 TSH Qn 2.74 m[IU]/L Normal 0.36-3.74 [facility] Comment on above: Performed By: #### T SHR, CMP, GFR #### [address] [address] VIDHon 08-29-2024 Vit. D 25-Hydroxy 37.8 ng/mL Normal [facility] Comment on above: Result Comment: Inte rpretive Values Based on Total 25(OH) Vitamin D: Deficient <20 ng/mL Insufficient 20 - <30 ng/mL Sufficient 30-100 ng/mL Performed By: #### T SHR, CMP, GFR #### [address] [address] .Auto Diffon 02-13-2024 Basophil, Absolute 0.0 10 3/mcL Normal 0.0-0.2 [facility] Comment on above: Performed By: #### A DIFF, CBC, GFR, ANEU, CMP, LIP, MDW #### [address] [address] Basophils/100 WBC (Bld) 0.5 % Normal 0.0-2.5 [facility] Comment on above: Performed By: #### A DIFF, CBC, GFR, ANEU, CMP, LIP, MDW #### [address] [address] Eosinophil, Absolute 0.1 10 3/mcL Normal 0.0-0.7 [facility] Comment on above: Performed By: #### A DIFF, CBC, GFR, ANEU, CMP, LIP, MDW #### [address] [address] Eosinophils/100 WBC (Bld) 1.6 % Normal 0.0-7.0 [facility] Comment on above: Performed By: #### A DIFF, CBC, GFR, ANEU, CMP, LIP, MDW #### [address] [address] Lymphocyte, Absolute 1.4 10 3/mcL Normal 0.9-4.3 [facility] Comment on above: Performed By: #### A DIFF, CBC, GFR, ANEU, CMP, LIP, MDW #### [address] [address] Lymphocytes/100 WBC (Bld) 21.3 % Normal 20.0-40.0 [facility] Comment on above: Performed By: #### A DIFF, CBC, GFR, ANEU, CMP, LIP, MDW #### [address] [address] Monocyte, Absolute 0.6 10 3/mcL Normal 0.1-1.4 [facility] Comment on above: Performed By: #### A DIFF, CBC, GFR, ANEU, CMP, LIP, MDW #### [address] [address] Monocytes/100 WBC (Bld) 8.3 % Normal 2.0-13.0 [facility] Comment on above: Performed By: #### A DIFF, CBC, GFR, ANEU, CMP, LIP, MDW #### [address] [address] Neutrophils/100 WBC (Bld) 68.3 % Normal 50.0-75.0 [facility] Comment on above: Performed By: #### A DIFF, CBC, GFR, ANEU, CMP, LIP, MDW #### [address] [address] .NEUABSon 02-13-2024 Neutrophil, Absolute 4.6 10 3/mcL Normal 2.3-8.1 [facility] Comment on above: Performed By: #### A DIFF, CBC, GFR, ANEU, CMP, LIP, MDW #### [address] [address] BD BONE DENSITY DEXA AXIAL S KELETONon [...] 02/13/2024 2:32:49 PM Ordering Provider: EDY Henderson [facility] CBCon 02-13-2024 Erythrocyte distribution width (RBC) [Ratio] 13.6 % Normal 11.5-15.5 [facility] Comment on above: Performed By: #### A DIFF, CBC, GFR, ANEU, CMP, JEFFERY GARCIA #### [address] [address] Hematocrit (Bld) [Volume fraction] 41.0 % Normal 34.0-46.0 [facility] Comment on above: Performed By: #### A DIFF, CBC, GFR, ANEU, CMP, JEFFERY GARCIA #### [address] [address] Hgb 14.1 G/dL Normal 12.0-16.0 [facility] Comment on above: Performed By: #### A DIFF, CBC, GFR, ANEU, CMP, JEFFERY GARCIA #### [address] [address] MCH (RBC) [Entitic mass] 32.2 pg Normal 27.0-33.0 [facility] Comment on above: Performed By: #### A DIFF, CBC, GFR, ANEU, CMP, JEFFERY GARCIA #### [address] [address] MCHC 34.3 G/dL Normal 32.0-36.0 [facility] Comment on above: Performed By: #### A DIFF, CBC, GFR, ANEU, CMP, LIP, W #### [address] [address] MCV (RBC) [Entitic vol] 93.9 fL Normal 80.0-99.0 [facility] Comment on above: Performed By: #### A DIFF, CBC, GFR, ANEU, CMP, LIP, JEFFERY #### [place] [id number] Platelet 148 10 3/mcL Low 150-450 [facility] Comment on above: Performed By: #### A DIFF, CBC, GFR, ANEU, CMP, LIP, W #### [place] [address] Platelet mean volume (Bld) [Entitic vol] 8.4 fL Normal 6.6-10.5 [facility] Comment on above: Performed By: #### A DIFF, CBC, GFR, ANEU, CMP, RADHA, JEFFERY #### [place] [address] RBC 4.37 10 6/mcL Normal 4.10-5.30 [facility] Comment on above: Performed By: #### A DIFF, CBC, GFR, ANEU, CMP, JEFFERY GARCIA #### [place] [id number] WBC 6.7 10 3/mcL Normal 4.5-10.8 [facility] Comment on above: Performed By: #### A DIFF, CBC, GFR, ANEU, CMP, LIP, JEFFERY #### [place] [phone] LABORATORYOrdered By: SYSTEM SYSTEM on 02-13-2024 Basophils [...] B (Bld) [Mass/Vol] 669 pg/mL High 0-450 [facility] Comment on above: Result Comment: NT-p roBNP results of less than 300 pg/mL effectively rules out acute congestive heart failure with 99% negative predictive value. Performed By: #### A DIFF, CBC, GFR, ANEU, CMP, LIP, MDW #### [address] [place], [place] [address] .GFRon 12-23-2023 GFR 50 ml/min/1.73sqm [facility] Comment on above: Result Comment: GFR [...] By: #### T SHR, CMP, GFR #### [address] [address] GFR Non- 41 ml/min/1.73sqm Normal [facility] Comment on above: Result Comment: GFR Population [...] By: #### T SHR, CMP, GFR #### [address] [address] CMPon 12-23-2023 Albumin Level 3.8 G/dL Normal 3.4-4.8 [facility] Comment on above: Performed By: #### T SHR, CMP, GFR #### [place] [phone] Albumin/Globulin [Mass ratio] 1.2 {ratio} Normal 1.1-2.5 [facility] Comment on above: Performed By: #### T SHR, CMP, GFR #### [place] [phone] ALP [Catalytic activity/Vol] 147 U/L High 40-135 [facility] Comment on above: Performed By: #### T SHR, CMP, GFR #### [place] [phone] ALT [Catalytic activity/Vol] 30 U/L Normal 14-59 [facility] Comment on above: Performed By: #### T SHR, CMP, GFR #### [place] [phone] AST [Catalytic activity/Vol] 24 U/L Normal 10-40 [facility] Comment on above: Performed By: #### T SHR, CMP, GFR #### [place] [phone] Bili Total 1.2 mg/dL High 0.2-1.0 [facility] Comment on above: Result Comment: Use of this assay is not recommended for patients undergoing treatment with eltrombopag due to the potential for falsely elevated results. Performed By: #### T SHR, CMP, GFR #### [place] [phone] BUN/Creatinine Ratio 20 ratio Normal 7-27 [facility] Comment on above: Performed By: #### T SHR, CMP, GFR #### [address] [address] Calcium [Mass/Vol] 9.0 mg/dL Normal 8.4-10.2 [facility] Comment on above: Performed By: #### T SHR, CMP, GFR #### [place] [address] Chloride [Moles/Vol] 106 mmol/L Normal 98-107 [facility] Comment on above: Performed By: #### T SHR, CMP, GFR #### [address] [address] CO2 [Moles/Vol] 29 mmol/L Normal 23-31 [facility] Comment on above: Performed By: #### T SHR, CMP, GFR #### [place] [address] Creatinine [Mass/Vol] 1.25 mg/dL High 0.55-1.02 [facility] Comment on above: Result Comment: Test ing performed on Siemens Dimension EXL analyzer using a modified kinetic John technique. Performed By: #### T SHR, CMP, GFR #### [place] [address] Electrolyte Balance 7.0 mEq/L Normal 4.0-15.0 [facility] Comment on above: Performed By: #### T SHR, CMP, GFR #### [place] [address] Globulin 3.3 G/dL Normal [facility] Comment on above: Performed By: #### T SHR, CMP, GFR #### [address] [address] Glucose [Mass/Vol] 122 mg/dL High 83-110 [facility] Comment on above: Performed By: #### T SHR, CMP, GFR #### [place] [address] Potassium [Moles/Vol] 4.2 mmol/L Normal 3.5-5.1 [facility] Comment on above: Performed By: #### T SHR, CMP, GFR #### [place] [address] Sodium [Moles/Vol] 142 mmol/L Normal 136-145 [facility] Comment on above: Performed By: #### T SHR, CMP, GFR #### [place] [address] [place], [place] [address] Total Protein 7.1 G/dL Normal 6.4-8.2 [facility] Comment on above: Performed By: #### T SHR, CMP, GFR #### [place] [address] [place], [place] [address] Urea nitrogen [Mass/Vol] 25 mg/dL High 7-18 [facility] Comment on above: Performed By: #### T SHR, CMP, GFR #### [place] [address] [place], [place] [address] HCVon 12-23-2023 Hep C Ab Non-Reactive Normal Non-Reactive [facility] Comment on above: Performed By: #### A DIFF, CBC, GFR, ANEU, CMP, LIP, MDW #### [place] [address] [place], [place] [address] Hep C Ab Int Normal [facility] Comment on above: Result Comment: Nonr eactive: [...] CBC, GFR, ANEU, CMP, LIP, MDW #### [address] [address] LABORATORYOrdered By: SYSTEM SYSTEM on 12-23-2023 Albumin [...] 12-23-2023 TSH Qn 2.04 m[IU]/L Normal 0.36-3.74 [facility] Comment on above: Performed By: #### T SHR, CMP, GFR #### [address] [address] .Auto Diffon 09-13-2023 Basophil, Absolute 0.0 10 3/mcL Normal 0.0-0.2 [facility] ([place]) Comment on above: Performed By: #### A DIFF, CBC, ANEU ####[id number] [place], [place] [address] Basophils/100 WBC (Bld) 0.3 % Normal 0.0-2.5 [facility] ([place]) Comment on above: Performed By: #### A DIFF, CBC, ANEU ####[address] [place], [place] [address] Eosinophil, Absolute 0.1 10 3/mcL Normal 0.0-0.4 [facility] ([place] Comment on above: Performed By: #### A DIFF, CBC, ANEU ####[address] [place], [place] [address] Eosinophils/100 WBC (Bld) 0.8 % Normal 0.0-7.0 [facility] ([place]) Comment on above: Performed By: #### A DIFF, CBC, ANEU ####[address] [place], [place] [address] Lymphocyte, Absolute 1.4 10 3/mcL Normal 0.8-3.9 [facility] ([place] Comment on above: Performed By: #### A DIFF, CBC, ANEU ####[address] [place], [place] [address] Lymphocytes/100 WBC (Bld) 19.9 % Normal 10.0-50.0 [facility] ([place]) Comment on above: Performed By: #### A DIFF, CBC, ANEU ####[address] [place], [place] [address] Monocyte, Absolute 0.5 10 3/mcL Normal 0.2-1.0 [facility] ([place]) Comment on above: Performed By: #### A DIFF, CBC, ANEU ####[address] [place], [place] [address] Monocytes/100 WBC (Bld) 7.0 % Normal 1.7-13.0 [facility] ([place]) Comment on above: Performed By: #### A DIFF, CBC, ANEU ####[address] [place], [place] [address] Neutrophils/100 WBC (Bld) 72.0 % Normal 37.0-80.0 [facility] ([place]) Comment on above: Performed By: #### A DIFF, CBC, ANEU ####[address] [place], [place] [address] .NEUABSon 09-13-2023 Neutrophil, Absolute 5.2 10 3/mcL Normal 2.9-6.2 [facility] ([place]) Comment on above: Performed By: #### A DIFF, CBC, ANEU ####[address] [place], [place] [address] CBCon 09-13-2023 Erythrocyte distribution width (RBC) [Ratio] 14.4 % Normal 11.5-14.5 [facility] ([place]) Comment on above: Performed By: #### A DIFF, CBC, ANEU ####[address] [place], [place] [address] Hematocrit (Bld) [Volume fraction] 38.8 % Normal 37.0-47.0 [facility] ([place]) Comment on above: Performed By: #### A DIFF, CBC, ANEU ####[address] [place], [place] [address] Hgb 13.0 G/dL Normal 12.0-16.0 [facility] ([place]) Comment on above: Performed By: #### A DIFF, CBC, ANEU ####[address] [place], [place] [address] MCH (RBC) [Entitic mass] 31.5 pg High 27.0-31.2 [facility] ([place]) Comment on above: Performed By: #### A DIFF, CBC, ANEU ####[address] [place], [place] [address] MCHC 33.6 G/dL Normal 33.0-37.0 [facility] ([place]) Comment on above: Performed By: #### A DIFF, CBC, ANEU ####[address] [place], [place] [address] MCV (RBC) [Entitic vol] 93.8 fL Normal 80.0-94.0 [facility] ([place]) Comment on above: Performed By: #### A DIFF, CBC, ANEU ####[address] [place], [place] [address] Platelet 157 10 3/mcL Normal 130-400 [facility] ([place]) Comment on above: Performed By: #### A DIFF, CBC, ANEU ####[address] [place], [place] [address] Platelet mean volume (Bld) [Entitic vol] 8.7 fL Normal 7.4-10.4 [facility] ([place]) Comment on above: Performed By: #### A DIFF, CBC, ANEU ####[address] [place], [place] [address] RBC 4.14 10 6/mcL Low 4.20-5.40 [facility] ([place]) Comment on above: Performed By: #### A DIFF, CBC, ANEU ####[address] [place], [place] [address] WBC 7.3 10 3/mcL Normal 4.6-10.8 [facility] ([place]) Comment on above: Performed By: #### A DIFF, CBC, ANEU ####[address] [place], [place] [address] LABORATORYOrdered By: SYSTEM SYSTEM on 09-13-2023 Basophil, [...] Reports Accession: Collected Date/Time: Received Date/Time: Pathologist: [id number] 06/02/2023 14:00 EDT 06/03/2023 09:08 EDT MD WILIAN PARSON Final Surgical Pathology Report DIAGNOSIS: SOFT TISSUE, LEFT LATERAL SCALP, EXCISION: - PILAR CYST CLINICAL INFORMATION: INCLUSION CYST Procedure: EXCISION Preoperative diagnosis: INCLUSION CYST Postoperative diagnosis: INCLUSION CYST SPECIMEN: A LEFT LATERAL SCALP GROSS DESCRIPTION: All parts labelled with patient name and [id number] Received in formalin labelled left lateral scalp Is a white smooth oval-shaped cystic cavity with no surfacing skin measuring 2.4 x 1.6 x 1.6 cm. Sectioning reveals white -light brown cystic cut surfaces. RS-1 Meryl Martin, Pathologists' Car Pre Cooler (ASCP) Dictated by MERYL MARTIN MICROSCOPIC DESCRIPTION: The microscopic examination is performed, except in the case of Gross Only. Electronically Signed by Pathology Report verified by [facility] WILIAN PARSON MD Sign out Date: 06/06/2023 09:37 Performing Lab: [facility], [address] [place] [address] Pathology Dept Disclaimer If ancillary studies were utilized, the following Laboratory Developed Test (LDT) disclaimer will apply: Under CLIA requirements, [facility] is qualified to perform high complexity testing. For all ancillary stains, positive and negative controls stain appropriately. Performance characteristics of immunohistochemical and chromogenic in-situ hybridization tests have been determined by [facility]. These tests are used for clinical purposes, They should not be regarded as investigational or for research. Normal [facility] ([place]) US SOFT TISSUE MASS OF HEAD OR [...] 04/18/2023 9:30:45 AM Ordering Provider: EDY Henderson [facility] ([place]) .Auto Diffon 02-27-2023 Basophil, Absolute 0.0 10 3/mcL Normal 0.0-0.3 [facility] ([place]) Comment on above: Performed By: #### A DEBRA GALLARDO #### [address] [address] Basophils/100 WBC (Bld) 0.2 % Normal 0.0-2.5 [facility] ([place]) Comment on above: Performed By: #### A DEBRA GALLARDO #### [address] [address] Eosinophil, Absolute 0.2 10 3/mcL Normal 0.0-0.7 [facility] ([place]) Comment on above: Performed By: #### A DEBRA GALLARDO #### [address] [address] Eosinophils/100 WBC (Bld) 2.2 % Normal 0.0-6.0 [facility] ([place]) Comment on above: Performed By: #### A DEBRA GALLARDO #### [address] [address] Lymphocyte, Absolute 0.8 10 3/mcL Low 0.9-4.3 [facility] ([place]) Comment on above: Performed By: #### DEBRA SHEA #### [address] [address] Lymphocytes/100 WBC (Bld) 10.9 % Low 20.0-40.0 [facility] ([place]) Comment on above: Performed By: #### A DEBRA GALLARDO #### [address] [address] Monocyte, Absolute 0.5 10 3/mcL Normal 0.1-1.4 [facility] ([place]) Comment on above: Performed By: #### A DEBRA GALLARDO #### [address] [address] Monocytes/100 WBC (Bld) 6.9 % Normal 2.0-13.0 [facility] ([place]) Comment on above: Performed By: #### A DEBRA GALLARDO #### [address] [address] Neutrophils/100 WBC (Bld) 79.8 % High 50.0-75.0 [facility] ([place]) Comment on above: Performed By: #### DEBRA SHEA #### [address] [address] .GFRon 02-27-2023 GFR >60 Normal [facility] ([place]) Comment on above: Result Comment: GFR Population [...] meters Performed By: #### DEBRA SHEA #### [address] [address] GFR Non- >60 Normal [facility] ([place]) Comment on above: Result Comment: GFR Population [...] meters Performed By: #### DEBRA SHEA #### [address] [address] .NEUABSon 02-27-2023 Neutrophil, Absolute 6.1 10 3/mcL Normal 2.3-8.1 [facility] ([place]) Comment on above: Performed By: #### DEBRA SHEA #### [address] [address] BMPon 02-27-2023 BUN/Creatinine Ratio 12.5 ratio Normal 10.0-22.0 [facility] ([place]) Comment on above: Performed By: #### DEBRA SHEA #### [address] [address] Calcium [Mass/Vol] 8.2 mg/dL Low 8.7-10.4 [facility] ([place]) Comment on above: Performed By: #### DEBRA SHEA #### [address] [address] Chloride [Moles/Vol] 107 mmol/L Normal 98-110 [facility] ([place]) Comment on above: Performed By: #### DEBRA SHEA #### [address] [address] CO2 [Moles/Vol] 29 mmol/L Normal 22-32 [facility] ([place]) Comment on above: Performed By: #### DEBRA SHEA #### [address] [address] Creatinine [Mass/Vol] 0.72 mg/dL Normal 0.50-1.20 [facility] ([place]) Comment on above: Performed By: #### DEBRA SHEA #### [address] [address] Electrolyte Balance 3.0 mEq/L Low 4.0-15.0 [facility] ([place]) Comment on above: Performed By: #### DEBRA SHEA #### [address] [address] Glucose [Mass/Vol] 138 mg/dL High 82-115 [facility] ([place]) Comment on above: Performed By: #### DEBRA SHEA #### [address] [address] Potassium [Moles/Vol] 3.9 mmol/L Normal 3.5-5.0 [facility] ([place]) Comment on above: Performed By: #### A DEBRA GALLARDO #### [address] [address] Sodium [Moles/Vol] 139 mmol/L Normal 136-145 [facility] ([place]) Comment on above: Performed By: #### A DEBRA GALLARDO #### [place] [id number] Urea nitrogen [Mass/Vol] 9.0 mg/dL Normal 8.0-22.0 [facility] ([place]) Comment on above: Performed By: #### A DEBRA GALLARDO #### [address] [address] CBCon 02-27-2023 Erythrocyte distribution width (RBC) [Ratio] 13.5 % Normal 11.5-15.5 [facility] ([place]) Comment on above: Performed By: #### DEBRA SHEA #### [place] [id number] Hematocrit (Bld) [Volume fraction] 30.0 % Low 34.0-46.0 [facility] ([place]) Comment on above: Performed By: #### DEBRA SHEA #### [place] [address] Hgb 10.1 G/dL Low 12.0-16.0 [facility] ([place]) Comment on above: Performed By: #### DEBRA SHEA #### [place] [id number] MCH (RBC) [Entitic mass] 31.5 pg Normal 27.0-33.0 [facility] ([place]) Comment on above: Performed By: #### DEBRA SHEA #### [place] [id number] MCHC 33.9 G/dL Normal 32.0-36.0 [facility] ([place]) Comment on above: Performed By: #### DEBRA SHEA #### [place] [id number] MCV (RBC) [Entitic vol] 93.1 fL Normal 80.0-99.0 [facility] ([place]) Comment on above: Performed By: #### A DEBRA GALLARDO #### [address] [address] Platelet 137 10 3/mcL Low 150-450 [facility] ([place]) Comment on above: Performed By: #### A DEBRA GALLARDO #### [address] [address] Platelet mean volume (Bld) [Entitic vol] 8.2 fL Normal 6.6-10.5 [facility] ([place]) Comment on above: Performed By: #### A DEBRA GALLARDO #### [address] [address] RBC 3.22 10 6/mcL Low 4.10-5.30 [facility] ([place]) Comment on above: Performed By: #### A DEBRA GALLARDO #### [address] [address] WBC 7.7 10 3/mcL Normal 4.5-10.8 [facility] ([place]) Comment on above: Performed By: #### A DEBRA GALLARDO #### [address] [address] [address] THORAX W/O CONTRASTon CT THORAX W/O [...] 02/27/2023 8:46:56 AM Ordering Provider: BETTINA Henderson [facility] ([place]) HHon 02-27-2023 Hematocrit (Bld) [Volume fraction] 28.8 % Low 34.0-46.0 [facility] ([place]) Comment on above: Performed By: #### DEBRA SHEA #### [address] [address] Hgb 10.1 G/dL Low 12.0-16.0 [facility] ([place]) Comment on above: Performed By: #### DEBRA SHEA #### [address] [address] LABORATORYOrdered By: SYSTEM SYSTEM on 02-27-2023 Basophils [...] International Ratio 1.1 ratio Invalid Interpretation Code HemKSub Comment on above: Interpretive Data: T tristin Citizen [employer] [place] [employer] (CHEST, 1991, 102:312S-25S) [...] 02-27-2023 Platelet 136 10 3/mcL Low 150-450 [facility] ([place]) Comment on above: Performed By: #### A DEBRA GALLARDO #### [place] [address] PROon 02-27-2023 INR Coag (PPP) [Relative time] 1.1 {INR} Normal [facility] ([place]) Comment on above: Result Comment: The [employer] [place] [employer] (CHEST, 1991, 102:312S-25S) recommended therapeutic range for oral anticoagulant therapy is: LOW RISK: Prophylaxis of venous thrombosis INR: 2.0-3.0 Treatment of pulmonary embolism 2.0-3.0 Prevention of systemic embolism 2.0-3.0 HIGH RISK: Mechanical prosthetic valves 2.5-3.5 Performed By: #### P RO ####[address] [address] PT Coag (PPP) [Time] 12.2 s Normal 9.0-14.2 [facility] ([place]) Comment on above: Result Comment: Effe ctive 09/05/07, Protime results may be affected by some antibiotics (i.e. Ciprofloxacin, Azithromycin, Bactrim) which may potentiate the action of oral anticoagulants, with further increases in Protime/INR. Performed By: #### P RO ####[address] [address] .GFRon 02-26-2023 GFR Non- >60 Normal [facility] ([place]) Comment on above: Result Comment: GFR Population [...] By: #### P LT, FIB, PRO #### [address] [address] GFR >60 Normal [facility] ([place]) Comment on above: Result Comment: GFR Population [...] By: #### P LT, FIB, PRO #### [address] [address] BMPon 02-26-2023 BUN/Creatinine Ratio 16.0 ratio Normal 10.0-22.0 [facility] ([place]) Comment on above: Performed By: #### P LT, FIB, PRO #### [address] [address] Calcium [Mass/Vol] 7.9 mg/dL Low 8.7-10.4 [facility] ([place]) Comment on above: Performed By: #### P LT, FIB, PRO #### [address] [address] Chloride [Moles/Vol] 110 mmol/L Normal 98-110 [facility] ([place]) Comment on above: Performed By: #### P LT, FIB, PRO #### [address] [address] CO2 [Moles/Vol] 27 mmol/L Normal 22-32 [facility] ([place]) Comment on above: Performed By: #### P LT, FIB, PRO #### [address] [address] Creatinine [Mass/Vol] 0.75 mg/dL Normal 0.50-1.20 [facility] ([place]) Comment on above: Performed By: #### P LT, FIB, PRO #### [address] [address] Electrolyte Balance 3.0 mEq/L Low 4.0-15.0 [facility] ([place]) Comment on above: Performed By: #### P LT, FIB, PRO #### [address] [address] Glucose [Mass/Vol] 122 mg/dL High 82-115 [facility] ([place]) Comment on above: Performed By: #### P LT, FIB, PRO #### [address] [address] Potassium [Moles/Vol] 4.6 mmol/L Normal 3.5-5.0 [facility] ([place]) Comment on above: Result Comment: Spec imen slightly hemolyzed. Performed By: #### P LT, FIB, PRO #### [address] [address] Sodium [Moles/Vol] 140 mmol/L Normal 136-145 [facility] ([place]) Comment on above: Performed By: #### P LT, FIB, PRO #### [address] [address] Urea nitrogen [Mass/Vol] 12.0 mg/dL Normal 8.0-22.0 [facility] ([place]) Comment on above: Performed By: #### P LT, FIB, PRO #### [address] [address] LABORATORYOrdered By: SYSTEM SYSTEM on 02-26-2023 Calcium [...] Basophil, Absolute 0.0 10 3/mcL Normal 0.0-0.3 [facility] ([place]) Comment on above: Performed By: #### P LT, FIB, PRO #### [facility] [address] [place] [address] Basophils/100 WBC (Bld) 0.1 % Normal 0.0-2.5 [facility] ([place]) Comment on above: Performed By: #### P LT, FIB, PRO #### [address] [address] Eosinophil, Absolute 0.0 10 3/mcL Normal 0.0-0.7 [facility] ([place]) Comment on above: Performed By: #### P LT, FIB, PRO #### [address] [address] Eosinophils/100 WBC (Bld) 0.0 % Normal 0.0-6.0 [facility] ([place]) Comment on above: Performed By: #### P LT, FIB, PRO #### [address] [address] Lymphocyte, Absolute 0.7 10 3/mcL Low 0.9-4.3 [facility] ([place]) Comment on above: Performed By: #### P LT, FIB, PRO #### [address] [address] Lymphocytes/100 WBC (Bld) 7.3 % Low 20.0-40.0 [facility] ([place]) Comment on above: Performed By: #### P LT, FIB, PRO #### [address] [address] Monocyte, Absolute 0.7 10 3/mcL Normal 0.1-1.4 [facility] ([place]) Comment on above: Performed By: #### P LT, FIB, PRO #### [address] [address] Monocytes/100 WBC (Bld) 6.6 % Normal 2.0-13.0 [facility] ([place]) Comment on above: Performed By: #### P LT, FIB, PRO #### [address] [address] Neutrophils/100 WBC (Bld) 86.0 % High 50.0-75.0 [facility] ([place]) Comment on above: Performed By: #### P LT, FIB, PRO #### [address] [address] .GFRon 02-25-2023 GFR >60 Normal [facility] ([place]) Comment on above: Result Comment: GFR Population [...] Performed By: #### A DEBRA GALLARDO #### [address] [address] GFR Non- >60 Normal [facility] ([place]) Comment on above: Result Comment: GFR Population [...] Performed By: #### A DEBRA GALLARDO #### [address] [address] .NEUABSon 02-25-2023 Neutrophil, Absolute 8.5 10 3/mcL High 2.3-8.1 [facility] ([place]) Comment on above: Performed By: #### P LT, FIB, PRO #### [address] [address] CBCon 02-25-2023 Erythrocyte distribution width (RBC) [Ratio] 13.5 % Normal 11.5-15.5 [facility] ([place]) Comment on above: Performed By: #### P LT, FIB, PRO #### [place] [address] Hematocrit (Bld) [Volume fraction] 30.0 % Low 34.0-46.0 [facility] ([place]) Comment on above: Performed By: #### P LT, FIB, PRO #### [place] [address] Hgb 10.4 G/dL Low 12.0-16.0 [facility] ([place]) Comment on above: Performed By: #### P LT, FIB, PRO #### [place] [address] MCH (RBC) [Entitic mass] 32.3 pg Normal 27.0-33.0 [facility] ([place]) Comment on above: Performed By: #### P LT, FIB, PRO #### [place] [address] MCHC 34.8 G/dL Normal 32.0-36.0 [facility] ([place]) Comment on above: Performed By: #### P LT, FIB, PRO #### [place] [address] MCV (RBC) [Entitic vol] 92.9 fL Normal 80.0-99.0 [facility] ([place]) Comment on above: Performed By: #### P LT, FIB, PRO #### [place] [address] Platelet 139 10 3/mcL Low 150-450 [facility] ([place]) Comment on above: Performed By: #### P LT, FIB, PRO #### [place] [address] Platelet mean volume (Bld) [Entitic vol] 8.2 fL Normal 6.6-10.5 [facility] ([place]) Comment on above: Performed By: #### P LT, FIB, PRO #### [place] [address] RBC 3.23 10 6/mcL Low 4.10-5.30 [facility] ([place]) Comment on above: Performed By: #### P LT, FIB, PRO #### [place] [address] WBC 9.9 10 3/mcL Normal 4.5-10.8 [facility] ([place]) Comment on above: Performed By: #### P LT, FIB, PRO #### [place] [address] CMPon 02-25-2023 Albumin Level 3.0 G/dL Low 3.2-4.8 [facility] ([place]) Comment on above: Performed By: #### P LT, FIB, PRO #### [place] [address] Albumin/Globulin [Mass ratio] 1.3 {ratio} Normal 0.9-1.6 [facility] ([place]) Comment on above: Performed By: #### P LT, FIB, PRO #### [place] [address] ALP [Catalytic activity/Vol] 66 U/L Normal 38-126 [facility] ([place]) Comment on above: Performed By: #### P LT, FIB, PRO #### [place] [address] ALT [Catalytic activity/Vol] 12 U/L Normal 10-49 [facility] ([place]) Comment on above: Performed By: #### P LT, FIB, PRO #### [place] [address] AST [Catalytic activity/Vol] 23 U/L Normal 8-34 [facility] ([place]) Comment on above: Performed By: #### P LT, FIB, PRO #### [place] [address] Bili Total 1.00 mg/dL Normal 0.20-1.20 [facility] ([place]) Comment on above: Result Comment: Use of this assay is not recommended for patients undergoing treatment with eltrombopag due to the potential for falsely elevated results. Performed By: #### P LT, FIB, PRO #### [place] [address] BUN/Creatinine Ratio 18.2 ratio Normal 10.0-22.0 [facility] ([place]) Comment on above: Performed By: #### P LT, FIB, PRO #### [place] [address] Calcium [Mass/Vol] 8.1 mg/dL Low 8.7-10.4 [facility] ([place]) Comment on above: Performed By: #### P LT, FIB, PRO #### [place] [address] Chloride [Moles/Vol] 109 mmol/L Normal 98-110 [facility] ([place]) Comment on above: Performed By: #### P LT, FIB, PRO #### [place] [address] CO2 [Moles/Vol] 25 mmol/L Normal 22-32 [facility] ([place]) Comment on above: Performed By: #### P LT, FIB, PRO #### [place] [address] Creatinine [Mass/Vol] 0.88 mg/dL Normal 0.50-1.20 [facility] ([place]) Comment on above: Performed By: #### P LT, FIB, PRO #### [place] [address] Electrolyte Balance 5.0 mEq/L Normal 4.0-15.0 [facility] ([place]) Comment on above: Performed By: #### P LT, FIB, PRO #### [place] [address] Globulin 2.3 G/dL Normal 1.5-3.8 [facility] ([place]) Comment on above: Performed By: #### P LT, FIB, PRO #### [place] [address] Glucose [Mass/Vol] 217 mg/dL High 82-115 [facility] ([place]) Comment on above: Performed By: #### P LT, FIB, PRO #### [place] [address] Potassium [Moles/Vol] 4.4 mmol/L Normal 3.5-5.0 [facility] ([place]) Comment on above: Performed By: #### P LT, FIB, PRO #### [place] [address] Sodium [Moles/Vol] 139 mmol/L Normal 136-145 [facility] ([place]) Comment on above: Performed By: #### P LT, FIB, PRO #### [place] [address] Total Protein 5.3 G/dL Low 5.7-8.2 [facility] ([place]) Comment on above: Result Comment: No te - New Reference Range in effect 19 Performed By: #### P LT, FIB, PRO #### [place] [address] Urea nitrogen [Mass/Vol] 16.0 mg/dL Normal 8.0-22.0 [facility] ([place]) Comment on above: Performed By: #### P LT, FIB, PRO #### [place] [address] HHon 02-25-2023 Hematocrit (Bld) [Volume fraction] 30.4 % Low 34.0-46.0 [facility] ([place]) Comment on above: Performed By: #### A DEBRA GALLARDO #### [place] [address] Hgb 10.5 G/dL Low 12.0-16.0 [facility] ([place]) Comment on above: Performed By: #### DEBRA SHEA #### [place] [address] LABORATORYOrdered By: SYSTEM SYSTEM on 02-25-2023 Albumin [...] s Normal 9.0 - 1 4.2 seconds [facility] on above: Interpretive Data: E ffective 09/05/07, Protime results may be affected by some antibiotics (i.e. Ciprofloxacin, Azithromycin, Bactrim) which may potentiate the action of oral anticoagulants, with further increases in Protime/INR. PT International Ratio 1.1 ratio Invalid Interpretation Code [facility] Comment on above: Interpretive Data: Ruth crow [employer] [place] [employer] (CHEST, 1991, 102:312S-25S) recommended therapeutic range for oral anticoagulant therapy is: LOW RISK: Prophylaxis of venous thrombosis INR: 2.0-3.0 Treatment of pulmonary embolism 2.0-3.0 Prevention of systemic embolism 2.0-3.0 HIGH RISK: Mechanical prosthetic valves 2.5-3.5 PT Coag (PPP) [Time] 12.3 s Normal 9.0 - [address] [facility] Comment on above: Interpretive Data: E ffective 09/05/07, Protime results may be affected by some antibiotics (i.e. Ciprofloxacin, Azithromycin, Bactrim) which may potentiate the action of oral anticoagulants, with further increases in Protime/INR. PT International Ratio 1.[address] [facility] Comment on above: Interpretive Data: Ruth crow Citizen Of [employer] [place] [employer] (CHEST, 1991, 102:312S-25S) recommended therapeutic range for oral anticoagulant therapy is: LOW RISK: Prophylaxis of venous thrombosis INR: 2.0-3.0 Treatment of pulmonary embolism 2.0-3.0 Prevention of systemic embolism 2.0-3.0 HIGH RISK: Mechanical prosthetic valves 2.5-3.5 LIPIDon 02-25-2023 Cholesterol [Mass/Vol] 83 mg/dL Normal 50-199 [facility] ([place]) Comment on above: Result Comment: Chol esterol Reference Interval: Less than 200 Desirable 200-239 Borderline high risk 240 and above High risk Performed By: #### P LT, FIB, PRO #### [address] [address] Cholesterol in HDL [Mass/Vol] 36 mg/dL Low 40-59 [facility] ([place]) Comment on above: Performed By: #### P LT, FIB, PRO #### [address] [address] Cholesterol in LDL [Mass/Vol] 37 mg/dL Normal 0-129 [facility] ([place]) Comment on above: Performed By: #### P LT, FIB, PRO #### [address] [address] Triglyceride [Mass/Vol] 49 mg/dL Normal 3-149 [facility] ([place]) Comment on above: Performed By: #### P LT, FIB, PRO #### [address] [address] MGon 02-25-2023 Magnesium [Mass/Vol] 2.5 mg/dL High 1.6-2.4 [facility] ([place]) Comment on above: Performed By: #### P LT, FIB, PRO #### [address] [address] PHOSon 02-25-2023 Phosphate [Mass/Vol] 3.2 mg/dL Normal 2.4-5.1 [facility] ([place]) Comment on above: Result Comment: No te - New Reference Range in effect 19 Performed By: #### P LT, FIB, PRO #### [address] [address] PLTon 02-25-2023 Platelet 120 10 3/mcL Low 150-450 [facility] ([place]) Comment on above: Performed By: #### A DEBRA GALLARDO #### [address] [address] PROon 02-25-2023 INR Coag (PPP) [Relative time] 1.1 {INR} Normal [facility] ([place]) Comment on above: Result Comment: The [employer] [place] [employer] (CHEST, 1992, 102:312S-25S) recommended therapeutic range for oral anticoagulant therapy is: LOW RISK: Prophylaxis of venous thrombosis INR: 2.0-3.0 Treatment of pulmonary embolism 2.0-3.0 Prevention of systemic embolism 2.0-3.0 HIGH RISK: Mechanical prosthetic valves 2.5-3.5 Performed By: #### A DEBRA GALLARDO #### [facility] [address] [place] [address] PT Coag (PPP) [Time] 12.6 s Normal 9.0-14.2 [facility] ([place]) Comment on above: Result Comment: Effe ctive 09/05/07, Protime results may be affected by some antibiotics (i.e. Ciprofloxacin, Azithromycin, Bactrim) which may potentiate the action of oral anticoagulants, with further increases in Protime/INR. Performed By: #### A DEBRA GALLARDO #### [address] [address] INR Coag (PPP) [Relative time] 1.1 {INR} Normal [facility] ([place]) Comment on above: Result Comment: The [employer] [place] [employer] (CHEST, 1992, 102:312S-25S) recommended therapeutic range for oral anticoagulant therapy is: LOW RISK: Prophylaxis of venous thrombosis INR: 2.0-3.0 Treatment of pulmonary embolism 2.0-3.0 Prevention of systemic embolism 2.0-3.0 HIGH RISK: Mechanical prosthetic valves 2.5-3.5 Performed By: #### P RO ####[address] [address] PT Coag (PPP) [Time] 12.3 s Normal 9.0-14.2 [facility] ([place]) Comment on above: Result Comment: Effe ctive 09/05/07, Protime results may be affected by some antibiotics (i.e. Ciprofloxacin, Azithromycin, Bactrim) which may potentiate the action of oral anticoagulants, with further increases in Protime/INR. Performed By: #### P RO ####[facility] [place] [address] .Auto Diffon 02-24-2023 Basophil, Absolute 0.0 10 3/mcL Normal 0.0-0.3 [facility] ([place]) Comment on above: Performed By: #### P LT, FIB, PRO #### [address] [address] Basophils/100 WBC (Bld) 0.2 % Normal 0.0-2.5 [facility] ([place]) Comment on above: Performed By: #### P LT, FIB, PRO #### [address] [address] Eosinophil, Absolute 0.0 10 3/mcL Normal 0.0-0.7 [facility] Comment on above: Performed By: #### P LT, FIB, PRO #### [address] [address] Eosinophils/100 WBC (Bld) 0.5 % Normal 0.0-6.0 [facility] ([place]) Comment on above: Performed By: #### P LT, FIB, PRO #### [address] [address] Lymphocyte, Absolute 0.8 10 3/mcL Low 0.9-4.3 [facility] ([place]) Comment on above: Performed By: #### P LT, FIB, PRO #### [address] [address] Lymphocytes/100 WBC (Bld) 7.6 % Low 20.0-40.0 [facility] ([place]) Comment on above: Performed By: #### P LT, FIB, PRO #### [address] [address] Monocyte, Absolute 0.2 10 3/mcL Normal 0.1-1.4 [facility] ([place]) Comment on above: Performed By: #### P LT, FIB, PRO #### [address] [address] Monocytes/100 WBC (Bld) 2.3 % Normal 2.0-13.0 [facility] ([place]) Comment on above: Performed By: #### P LT, FIB, PRO #### [address] [address] Neutrophils/100 WBC (Bld) 89.4 % High 50.0-75.0 [facility] ([place]) Comment on above: Performed By: #### P LT, FIB, PRO #### [address] [address] .GFRon 02-24-2023 GFR >60 Normal [facility] ([place]) Comment on above: Result Comment: GFR Population [...] By: #### P LT, FIB, PRO #### [place] [address] GFR Non- 59 ml/min/1.73sqm Normal [facility] ([place]) Comment on above: Result Comment: GFR Population [...] By: #### P LT, FIB, PRO #### [address] [address] .NEUABSon 02-24-2023 Neutrophil, Absolute 9.4 10 3/mcL High 2.3-8.1 [facility] ([place]) Comment on above: Performed By: #### P LT, FIB, PRO #### [address] [address] APTTon 02-24-2023 aPTT Coag (Bld) [Time] 31.9 s Normal 25.0-35.0 [facility] ([place]) Comment on above: Result Comment: For Heparin anticoagulation therapy, the recommended therapeutic range is: 54-77 seconds (APTT Correlation with Anti-Xa therapeutic range of 0.3-0.7 units/ml). PLEASE REFERENCE THE PHARMACY PROTOCOL FOR DOSING. Performed By: #### P LT, FIB, PRO #### [address] [address] Heparin dose (APTT) Unknown Normal [facility] ([place]) Comment on above: Performed By: #### P LT, FIB, PRO #### [address] [address] BGRPon 02-24-2023 Base Excess - POC -0.9 mmol/L Normal [facility] ([place]) Comment on above: Performed By: #### A DEBRA GALLARDO #### [address] [address] CO2 [Moles/Vol] 27.0 mmol/L Normal 22.0-30.0 [facility] ([place]) Comment on above: Performed By: #### DEBRA SHEA #### [address] [address] HCO3 (Bld) [Moles/Vol] 25.4 mmol/L Normal 21.0-29.0 [facility] ([place]) Comment on above: Performed By: #### DEBRA SHEA #### [address] [address] Oxygen saturation in Blood 99.4 % High 92.0-96.0 [facility] ([place]) Comment on above: Performed By: #### DEBRA SHEA #### [address] [address] PCO2 - POC 49.8 mmHg High 32.0-46.0 [facility] ([place]) Comment on above: Performed By: #### A DEBRA GALLARDO #### [address] [address] pH (poct) - POC 7.326 Low 7.380-7.460 [facility] ([place]) Comment on above: Performed By: #### A DEBRA GALLARDO #### [address] [address] PO2 - POC 323.5 mmHg High 74.0-108.0 [facility] ([place]) Comment on above: Performed By: #### A DEBRA GALLARDO #### [address] [address] PCO2 - POC 54.8 mmHg High 32.0-46.0 [facility] ([place]) Comment on above: Performed By: #### G LURP, BGRP, CLRP, HGBRP, NARP, KRP, CARP, HCTRP ####[address] [address] pH (poct) - POC 7.309 Low 7.380-7.460 [facility] ([place]) Comment on above: Performed By: #### G LURP, BGRP, CLRP, HGBRP, NARP, KRP, CARP, HCTRP ####[address] [address] PO2 - POC 331.5 mmHg High 74.0-108.0 [facility] ([place]) Comment on above: Performed By: #### G LURP, BGRP, CLRP, HGBRP, NARP, KRP, CARP, HCTRP ####[address] [address] Base Excess - POC -0.6 mmol/L Normal [facility] ([place]) Comment on above: Performed By: #### N ALEX, CARP, GLURP, HGBRP, BGRP, KRP, HCTRP, CLRP #### [address] [address] CO2 [Moles/Vol] 25.7 mmol/L Normal 22.0-30.0 [facility] ([place]) Comment on above: Performed By: #### N ALEX, CARP, GLURP, HGBRP, BGRP, KRP, HCTRP, CLRP #### [place] [id number] HCO3 (Bld) [Moles/Vol] 24.4 mmol/L Normal 21.0-29.0 [facility] ([place]) Comment on above: Performed By: #### N ALEX, CARP, GLURP, HGBRP, BGRP, KRP, HCTRP, CLRP #### [place] [address] Oxygen saturation in Blood 99.4 % High 92.0-96.0 [facility] ([place]) Comment on above: Performed By: #### N ALEX, CARP, GLURP, HGBRP, BGRP, KRP, HCTRP, CLRP #### [place] [address] PCO2 - POC 41.6 mmHg Normal 32.0-46.0 [facility] ([place]) Comment on above: Performed By: #### N ALEX, CARP, GLURP, HGBRP, BGRP, KRP, HCTRP, CLRP #### [place] [address] pH (poct) - POC 7.386 Normal 7.380-7.460 [facility] ([place]) Comment on above: Performed By: #### N ALEX, CARP, GLURP, HGBRP, BGRP, KRP, HCTRP, CLRP #### [place] [address] PO2 - POC 451.2 mmHg High 74.0-108.0 [facility] ([place]) Comment on above: Performed By: #### N ALEX, CARP, GLURP, HGBRP, BGRP, KRP, HCTRP, CLRP #### [place] [id number] BGRPOrdered By: HEENA Pizarro on 02-24-2023 Base Excess - POC 0.0 mmol/L Normal [facility] Rapi d Comm SS Comment on above: Performed By: #### G LURP, BGRP, CLRP, HGBRP, NARP, KRP, CARP, HCTRP ####[place] [id number] [place] [address] CO2 [Moles/Vol] 28.6 mmol/L Normal 22.0-30.0 [facility] Rapid [facility] SS Comment on above: Performed By: #### G LURP, BGRP, CLRP, HGBRP, NARP, KRP, CARP, HCTRP ####[address] [address] HCO3 (Bld) [Moles/Vol] 26.9 mmol/L Normal 21.0-29.0 [facility] SS Comment on above: Performed By: #### G LURP, BGRP, CLRP, HGBRP, NARP, KRP, CARP, HCTRP ####[address] [address] Oxygen saturation in Blood 99.1 % High 92.0-96.0 [facility] SS Comment on above: Performed By: #### G LURP, BGRP, CLRP, HGBRP, NARP, KRP, CARP, HCTRP ####[address] [address] BMPon 02-24-2023 BUN/Creatinine Ratio 18.5 ratio Normal 10.0-22.0 [facility] ([place]) Comment on above: Performed By: #### P LT, FIB, PRO #### [address] [address] Calcium [Mass/Vol] 8.8 mg/dL Normal 8.7-10.4 [facility] ([place]) Comment on above: Performed By: #### P LT, FIB, PRO #### [address] [address] Chloride [Moles/Vol] 112 mmol/L High 98-110 [facility] ([place]) Comment on above: Performed By: #### P LT, FIB, PRO #### [address] [address] CO2 [Moles/Vol] 29 mmol/L Normal 22-32 [facility] ([place]) Comment on above: Performed By: #### P LT, FIB, PRO #### [address] [address] Creatinine [Mass/Vol] 0.92 mg/dL Normal 0.50-1.20 [facility] ([place]) Comment on above: Performed By: #### P LT, FIB, PRO #### [address] [address] Electrolyte Balance 4.0 mEq/L Normal 4.0-15.0 [facility] ([place]) Comment on above: Performed By: #### P LT, FIB, PRO #### [address] [address] Glucose [Mass/Vol] 149 mg/dL High 82-115 [facility] ([place]) Comment on above: Performed By: #### P LT, FIB, PRO #### [address] [address] Potassium [Moles/Vol] 4.1 mmol/L Normal 3.5-5.0 [facility] ([place]) Comment on above: Performed By: #### P LT, FIB, PRO #### [address] [address] Sodium [Moles/Vol] 145 mmol/L Normal 136-145 [facility] ([place]) Comment on above: Performed By: #### P LT, FIB, PRO #### [address] [address] Urea nitrogen [Mass/Vol] 17.0 mg/dL Normal 8.0-22.0 [facility] ([place]) Comment on above: Performed By: #### P LT, FIB, PRO #### [address] [address] CARPon 02-24-2023 Ionized Calcium - POC 1.31 mmol/L Normal 1.12-1.32 [facility] ([place]) Comment on above: Performed By: #### A DEBRA GALLARDO #### [address] [address] Ionized Calcium - POC 1.14 mmol/L Normal 1.12-1.32 [facility] ([place]) Comment on above: Performed By: #### P LT, FIB, PRO #### [place] [address] CARPOrdered By: HEENA Pizarro on 02-24-2023 Ionized Calcium - POC 1.33 mmol/L High 1.12-1.32 [facility] Rapid Comm SS Comment on above: Performed By: #### G LURP, BGRP, CLRP, HGBRP, NARP, KRP, CARP, HCTRP ####[place] [address] CBCon 02-24-2023 Erythrocyte distribution width (RBC) [Ratio] 13.5 % Normal 11.5-15.5 [facility] ([place]) Comment on above: Performed By: #### P LT, FIB, PRO #### [place] [address] Hematocrit (Bld) [Volume fraction] 30.9 % Low 34.0-46.0 [facility] ([place]) Comment on above: Performed By: #### P LT, FIB, PRO #### [place] [address] Hgb 10.7 G/dL Low 12.0-16.0 [facility] ([place]) Comment on above: Performed By: #### P LT, FIB, PRO #### [place] [address] MCH (RBC) [Entitic mass] 32.2 pg Normal 27.0-33.0 [facility] ([place]) Comment on above: Performed By: #### P LT, FIB, PRO #### [place] [address] MCHC 34.5 G/dL Normal 32.0-36.0 [facility] ([place]) Comment on above: Performed By: #### P LT, FIB, PRO #### [place] [address] MCV (RBC) [Entitic vol] 93.1 fL Normal 80.0-99.0 [facility] ([place]) Comment on above: Performed By: #### P LT, FIB, PRO #### [place] [address] Platelet 123 10 3/mcL Low 150-450 [facility] ([place]) Comment on above: Performed By: #### P LT, FIB, PRO #### [place] [address] Platelet mean volume (Bld) [Entitic vol] 7.8 fL Normal 6.6-10.5 [facility] ([place]) Comment on above: Performed By: #### P LT, FIB, PRO #### [place] [address] RBC 3.32 10 6/mcL Low 4.10-5.30 [facility] ([place]) Comment on above: Performed By: #### P LT, FIB, PRO #### [place] [address] WBC 10.5 10 3/mcL Normal 4.5-10.8 [facility] ([place]) Comment on above: Performed By: #### P LT, FIB, PRO #### [place] [address] CLRPon 02-24-2023 Chloride [Moles/Vol] 108 mmol/L Normal 98-110 [facility] ([place]) Comment on above: Performed By: #### A DEBRA GALLARDO #### [place] [address] Chloride [Moles/Vol] 106 mmol/L Normal 98-110 [facility] ([place]) Comment on above: Performed By: #### P LT, FIB, PRO #### [place] [address] CLRPOrdered By: SYSTEM SYSTE M on 02-24-2023 Chloride [Moles/Vol] 109 mmol/L Normal 98-110 [facility] R apid Comm SS Comment on above: Performed By: #### G LURP, BGRP, CLRP, HGBRP, NARP, KRP, CARP, HCTRP ####[place] [address] FIBon 02-24-2023 Fibrinogen 407 mg/dL Normal 250-560 [facility] ([place]) Comment on above: Performed By: #### P LT, FIB, PRO #### [address] [address] GLURPon 02-24-2023 Glucose [Mass/Vol] 141 mg/dL High 82-115 [facility] ([place]) Comment on above: Performed By: #### A DEBRA GALLARDO #### [address] [address] Glucose [Mass/Vol] 103 mg/dL Normal 82-115 [facility] ([place]) Comment on above: Performed By: #### P LT, FIB, PRO #### [address] [address] GLURPOrdered By: SYSTEM SYST EM on 02-24-2023 Glucose [Mass/Vol] 163 mg/dL High 82-115 [facility] Rap id Comm SS Comment on above: Performed By: #### G LURP, BGRP, CLRP, HGBRP, NARP, KRP, CARP, HCTRP ####[place] [address] HCTRPon 02-24-2023 Hematocrit (Bld) [Volume fraction] 32.0 % Low 37.0-47.0 [facility] ([place]) Comment on above: Performed By: #### A DEBRA GALLARDO #### [place] [address] Hematocrit (Bld) [Volume fraction] 37.0 % Normal 37.0-47.0 [facility] ([place]) Comment on above: Performed By: #### P LT, FIB, PRO #### [place] [address] HCTRPOrdered By: SYSTEM SYST EM on 02-24-2023 Hematocrit (Bld) [Volume fraction] 31.0 % Low 37.0-47.0 [facility] Rapid [facility] SS Comment on above: Performed By: #### G LURP, BGRP, CLRP, HGBRP, NARP, KRP, CARP, HCTRP ####[place] [address] HGBRPon 02-24-2023 Hemoglobin (POC) 11.0 G/dL Low 12.0-16.0 [facility] ([place]) Comment on above: Performed By: #### A DEBRA GALLARDO #### [place] [address] Hemoglobin (POC) 12.5 G/dL Normal 12.0-16.0 [facility] ([place]) Comment on above: Performed By: #### P LT, FIB, PRO #### [place] [address] HGBRPOrdered By: SYSTEM SYST EM on 02-24-2023 Hemoglobin (POC) 10.7 G/dL Low 12.0-16.0 Rapid [facility] SS Comment on above: Performed By: #### G LURP, BGRP, CLRP, HGBRP, NARP, KRP, CARP, HCTRP ####[place] [address] HHon 02-24-2023 Hematocrit (Bld) [Volume fraction] 31.7 % Low 34.0-46.0 [facility] ([place]) Comment on above: Performed By: #### P LT, FIB, PRO #### [place] [address] Hgb 10.9 G/dL Low 12.0-16.0 [facility] ([place]) Comment on above: Performed By: #### P LT, FIB, PRO #### [place] [address] KRPon 02-24-2023 Potassium [Moles/Vol] 3.9 mmol/L Normal 3.5-5.0 [facility] ([place]) Comment on above: Performed By: #### A DEBRA GALLARDO #### [place] [address] Potassium [Moles/Vol] 3.9 mmol/L Normal 3.5-5.0 [facility] ([place]) Comment on above: Performed By: #### P LT, FIB, PRO #### [place] [address] KRPOrdered By: SYSTEM SYSTEM on 02-24-2023 Potassium [Moles/Vol] 4.1 mmol/L Normal 3.5-5.0 [facility] Rapid [facility] SS Comment on above: Performed By: #### G LURP, BGRP, CLRP, HGBRP, NARP, KRP, CARP, HCTRP ####[place] [id number] [address] [place] [address] LABORATORYOrdered By: SYSTEM SYSTEM on 02-24-2023 Basophils [...] 02-24-2023 Sodium [Moles/Vol] 141 mmol/L Normal 136-145 [facility] ([place]) Comment on above: Performed By: #### A DEBRA GALLARDO #### [place] [address] Sodium [Moles/Vol] 140 mmol/L Normal 136-145 [facility] ([place]) Comment on above: Performed By: #### P LT, FIB, PRO #### [place] [address] NARPOrdered By: SYSTEM SYSTE M on 02-24-2023 Sodium [Moles/Vol] 140 mmol/L Normal 136-145 [facility] Rap id Comm SS Comment on above: Performed By: #### G LURP, BGRP, CLRP, HGBRP, NARP, KRP, CARP, HCTRP ####[place] [address] PLTon 02-24-2023 Platelet 121 10 3/mcL Low 150-450 [facility] ([place]) Comment on above: Performed By: #### P LT, FIB, PRO #### [place] [address] Platelet 185 10 3/mcL Normal 150-450 [facility] ([place]) Comment on above: Performed By: #### P LT, FIB, PRO #### [place] [address] PROon 02-24-2023 INR Coag (PPP) [Relative time] 1.1 {INR} Normal [facility] ([place]) Comment on above: Result Comment: [employer] [place] [employer] (CHEST, 1991, 102:312S-25S) recommended therapeutic range for oral anticoagulant therapy is: LOW RISK: Prophylaxis of venous thrombosis INR: 2.0-3.0 Treatment of pulmonary embolism 2.0-3.0 Prevention of systemic embolism 2.0-3.0 HIGH RISK: Mechanical prosthetic valves 2.5-3.5 Performed By: #### A DEBRA GALLARDO #### [place] [address] PT Coag (PPP) [Time] 12.4 s Normal 9.0-14.2 [facility] ([place]) Comment on above: Result Comment: Effe ctive 09/05/07, Protime results may be affected by some antibiotics (i.e. Ciprofloxacin, Azithromycin, Bactrim) which may potentiate the action of oral anticoagulants, with further increases in Protime/INR. Performed By: #### A DEBRA GALLARDO #### [address] [address] INR Coag (PPP) [Relative time] 1.0 {INR} Normal [facility] ([place]) Comment on above: Result Comment: [employer] [place] [employer] (CHEST, 1991, 102:[id number]) recommended therapeutic range for oral anticoagulant therapy is: LOW RISK: Prophylaxis of venous thrombosis INR: 2.0-3.0 Treatment of pulmonary embolism 2.0-3.0 Prevention of systemic embolism 2.0-3.0 HIGH RISK: Mechanical prosthetic valves 2.5-3.5 Performed By: #### P LT, FIB, PRO #### [address] [address] PT Coag (PPP) [Time] 11.4 s Normal 9.0-14.2 [facility] ([place]) Comment on above: Result Comment: Effe ctive 09/05/07, Protime results may be affected by some antibiotics (i.e. Ciprofloxacin, Azithromycin, Bactrim) which may potentiate the action of oral anticoagulants, with further increases in Protime/INR. Performed By: #### P LT, FIB, PRO #### [address] [address] RBC (Product)on 02-24-2023 RBC Product Ready RBC Ready for Pickup Normal [facility] ([place]) Comment on above: Performed By: #### P LT, FIB, PRO #### [address] [address] XR CHEST 1 VIEWon 02-24-2023 XR CHEST [...] 02/24/2023 5:29:28 PM Ordering Provider: ROBERT Henderson [facility] ([place]) .Auto Diffon 02-22-2023 Basophil, Absolute 0.0 10 3/mcL Normal 0.0-0.3 [facility] ([place]) Comment on above: Performed By: #### P LT, FIB, PRO #### [address] [address] Basophils/100 WBC (Bld) 0.7 % Normal 0.0-2.5 [facility] ([place]) Comment on above: Performed By: #### P LT, FIB, PRO #### [address] [address] Eosinophil, Absolute 0.1 10 3/mcL Normal 0.0-0.7 [facility] Comment on above: Performed By: #### P LT, FIB, PRO #### [address] [address] Eosinophils/100 WBC (Bld) 2.3 % Normal 0.0-6.0 [facility] ([place]) Comment on above: Performed By: #### P LT, FIB, PRO #### [address] [address] Lymphocyte, Absolute 1.4 10 3/mcL Normal 0.9-4.3 [facility] Comment on above: Performed By: #### P LT, FIB, PRO #### [address] [address] Lymphocytes/100 WBC (Bld) 23.1 % Normal 20.0-40.0 [facility] ([place]) Comment on above: Performed By: #### P LT, FIB, PRO #### [address] [address] Monocyte, Absolute 0.4 10 3/mcL Normal 0.1-1.4 [facility] ([place]) Comment on above: Performed By: #### P LT, FIB, PRO #### [address] [address] Monocytes/100 WBC (Bld) 7.3 % Normal 2.0-13.0 [facility] ([place]) Comment on above: Performed By: #### P LT, FIB, PRO #### [address] [address] Neutrophils/100 WBC (Bld) 66.6 % Normal 50.0-75.0 [facility] ([place]) Comment on above: Performed By: #### P LT, FIB, PRO #### [address] [address] .GFRon 02-22-2023 GFR >60 Normal [facility] ([place]) Comment on above: Result Comment: GFR Population [...] By: #### P LT, FIB, PRO #### [address] [address] GFR Non- 51 ml/min/1.73sqm Normal [facility] ([place]) Comment on above: Result Comment: GFR Population [...] By: #### P LT, FIB, PRO #### [address] [address] .NEUABSon 02-22-2023 Neutrophil, Absolute 4.1 10 3/mcL Normal 2.3-8.1 [facility] Comment on above: Performed By: #### P LT, FIB, PRO #### [address] [address] ABO/Rh (Gel)on 02-22-2023 ABO/Rh Interp Positive Invalid Interpretation Code [facility] ([place]) Comment on above: Performed By: #### A DEBRA GALLARDO #### [address] [address] ABS (Gel)on 02-22-2023 ABSC Interp (Gel) Negative Normal [facility] ([place]) Comment on above: Performed By: #### A DEBRA GALLARDO #### [address] [address] BMPon 02-22-2023 BUN/Creatinine Ratio 18.3 ratio Normal 10.0-22.0 [facility] ([place]) Comment on above: Performed By: #### P LT, FIB, PRO #### [address] [address] Calcium [Mass/Vol] 9.2 mg/dL Normal 8.7-10.4 [facility] ([place]) Comment on above: Performed By: #### P LT, FIB, PRO #### [address] [address] Chloride [Moles/Vol] 109 mmol/L Normal 98-110 [facility] ([place]) Comment on above: Performed By: #### P LT, FIB, PRO #### [address] [address] CO2 [Moles/Vol] 28 mmol/L Normal 22-32 [facility] ([place]) Comment on above: Performed By: #### P LT, FIB, PRO #### [address] [address] Creatinine [Mass/Vol] 1.04 mg/dL Normal 0.50-1.20 [facility] ([place]) Comment on above: Performed By: #### P LT, FIB, PRO #### [address] [address] Electrolyte Balance 2.0 mEq/L Low 4.0-15.0 [facility] ([place]) Comment on above: Performed By: #### P LT, FIB, PRO #### [address] [address] Glucose [Mass/Vol] 94 mg/dL Normal 82-115 [facility] ([place]) Comment on above: Performed By: #### P LT, FIB, PRO #### [address] [address] Potassium [Moles/Vol] 3.8 mmol/L Normal 3.5-5.0 [facility] ([place]) Comment on above: Performed By: #### P LT, FIB, PRO #### [address] [address] Sodium [Moles/Vol] 139 mmol/L Normal 136-145 [facility] ([place]) Comment on above: Performed By: #### P LT, FIB, PRO #### [place] [id number] Urea nitrogen [Mass/Vol] 19.0 mg/dL Normal 8.0-22.0 [facility] ([place]) Comment on above: Performed By: #### P LT, FIB, PRO #### [place] [address] CBCon 02-22-2023 Erythrocyte distribution width (RBC) [Ratio] 13.3 % Normal 11.5-15.5 [facility] ([place]) Comment on above: Performed By: #### P LT, FIB, PRO #### [place] [address] Hematocrit (Bld) [Volume fraction] 37.0 % Normal 34.0-46.0 [facility] ([place]) Comment on above: Performed By: #### P LT, FIB, PRO #### [place] [address] Hgb 12.7 G/dL Normal 12.0-16.0 [facility] ([place]) Comment on above: Performed By: #### P LT, FIB, PRO #### [place] [address] MCH (RBC) [Entitic mass] 31.7 pg Normal 27.0-33.0 [facility] ([place]) Comment on above: Performed By: #### P LT, FIB, PRO #### [place] [address] MCHC 34.3 G/dL Normal 32.0-36.0 [facility] ([place]) Comment on above: Performed By: #### P LT, FIB, PRO #### [place] [address] MCV (RBC) [Entitic vol] 92.4 fL Normal 80.0-99.0 [facility] ([place]) Comment on above: Performed By: #### P LT, FIB, PRO #### [place] [address] Platelet 156 10 3/mcL Normal 150-450 [facility] ([place]) Comment on above: Performed By: #### P LT, FIB, PRO #### [place] [address] Platelet mean volume (Bld) [Entitic vol] 8.2 fL Normal 6.6-10.5 [facility] ([place]) Comment on above: Performed By: #### P LT, FIB, PRO #### [address] [address] RBC 4.01 10 6/mcL Low 4.10-5.30 [facility] ([place]) Comment on above: Performed By: #### P LT, FIB, PRO #### [address] [address] WBC 6.1 10 3/mcL Normal 4.5-10.8 [facility] ([place]) Comment on above: Performed By: #### P LT, FIB, PRO #### [address] [address] LABORATORYOrdered By: Cristiana Boston on 02-22-2023 RBC Product Ready RBC Ready for Pickup (02/22/23 11:29 PM) Normal BB Manual SS LABORATORYOrdered By: Trae Velasquez on 02-22-2023 ABO and Rh group Nom (Bld) Blood group O Rh(D) positive Invalid Interpretation Code AH BB Auto SS Blood group antibody screen Ql Negative ABSC (02/22/23 1:06 PM) Normal AH BB Auto SS LABORATORYOrdered By: [employer] SYSTEM on 02-22-2023 Basophils (Bld) [#/Vol] 0.0 [...] [Vol rate/Area] 51 ml/min/1.73sqm Invalid Interpretation Code [employer] [facility] S Comment on above: Interpretive Data: [...] on 08-26-2022 Creatinine [Mass/Vol] 1.3 mg/dL 0.55-1.02 [facility] - Chemistry and C hemistry - challengeOrdered By: Robert Sands on 08-26-2022 GFR/1.73 sq M.predicted among non-blacks MDRD (S/P/Bld) [Vol rate/Area] 43.0000 mL/min/{1.73_m2} >60 [facility] LABORATORYOrdered By: SYSTEM SYSTEM on 08-25-2022 [...] (Bld) [Volume fraction] 36.9 % Low 37.0-47.0 [facility] Comment on above: Performed By: #### B MP, FT4, TIBCFE, TSH, B12, TOI #### [facility] [address] [place] [address] Hemoglobin (Bld) [Mass/Vol] 11.8 g/dL Low 12.0-16.0 [facility] Comment on above: Performed By: #### B MP, FT4, TIBCFE, TSH, B12, TOI #### [facility] [address] [place] [address] MCH (RBC) [Entitic mass] 32.0 g/dl Low 33.0-37.0 [facility] Comment on above: Performed By: #### B MP, FT4, TIBCFE, TSH, B12, TOI #### [facility] [address] [place] [address] MCV (RBC) [Entitic vol] 98.7 fL Normal 81.0-99.0 [facility] Comment on above: Performed By: #### B MP, FT4, TIBCFE, TSH, B12, TOI #### [facility] [address] [place] [id number] MEAN CORPUSCULAR HGB 31.6 pg High 27.0-31.0 [facility] Comment on above: Performed By: #### B MP, FT4, TIBCFE, TSH, B12, TOI #### [facility] [address] [place] [address] NUCLEATED RED BLOOD CELL 0.0 10*3/uL Normal 0.0-0.0 [facility] Comment on above: Performed By: #### B MP, FT4, TIBCFE, TSH, B12, TOI #### [facility] [address] [place] [address] NUCLEATED RED BLOOD CELL 0.1 % High 0.0-0.0 [facility] Comment on above: Performed By: #### B MP, FT4, TIBCFE, TSH, B12, TOI #### [facility] [address] [place] [address] PLATELET COUNT AUTOMATED 229 10*3/uL Normal 130-400 [facility] Comment on above: Performed By: #### B MP, FT4, TIBCFE, TSH, B12, TOI #### [facility] [address] [place] [address] Platelet mean volume (Bld) [Entitic vol] 9.5 fL Low 9.6-12.3 [facility] Comment on above: Performed By: #### B MP, FT4, TIBCFE, TSH, B12, TOI #### [facility] [address] [place] [address] RBC (Bld) [#/Vol] 3.74 10*6/uL Low 4.10-5.10 [facility] Comment on above: Performed By: #### B MP, FT4, TIBCFE, TSH, B12, TOI #### [facility] [address] [place] [address] RED CELL DISTRI WIDTH 13.9 % Normal 0-14.5 [facility] Comment on above: Performed By: #### B MP, FT4, TIBCFE, TSH, B12, TOI #### [facility] [address] [place] [address] WBC (Bld) [#/Vol] 15.2 10*3/uL High 4.8-10.8 [facility] Comment on above: Performed By: #### B MP, FT4, TIBCFE, TSH, B12, TOI #### [facility] [address] [place] [address] MANUAL DIFFERENTIALon 2018 ATYPICAL LYMPHS 2 % High 0-0 [facility] Comment on above: Performed By: #### B MP, FT4, TIBCFE, TSH, B12, TOI #### [facility] [address] [place] [address] 7[address]16 Basophils (Bld) [#/Vol] 0.0 10*3/uL Normal 0-0.1 [facility] Comment on above: Performed By: #### B MP, FT4, TIBCFE, TSH, B12, TOI #### [facility] [address] [place] [address] EOSINOPHIL # 0.0 10*3/uL Normal 0-0.4 [facility] Comment on above: Performed By: #### B MP, FT4, TIBCFE, TSH, B12, TOI #### [facility] [address] [place] [address] IMMATURE GRANULOCYTES # 0.8 10*3/uL High 0-0.1 [facility] Comment on above: Performed By: #### B MP, FT4, TIBCFE, TSH, B12, TOI #### [facility] [address] [place] [address] LYMPHOCYTES 20 % Low 27-41 [facility] Comment on above: Performed By: #### B MP, FT4, TIBCFE, TSH, B12, TOI #### [facility] [address] [place] [address] 68749 Lymphocytes (Bld) [#/Vol] 3.3 10*3/uL Normal 1.3-4.4 [facility] Comment on above: Performed By: #### B MP, FT4, TIBCFE, TSH, B12, TOI #### [facility] [address] [place] [address] 22540 METAMYELOCYTES 2 % High 0-0 [facility] Comment on above: Performed By: #### B MP, FT4, TIBCFE, TSH, B12, TOI #### [facility] [address] [place] [address] 24791 MONOCYTES 7 % Normal 3-9 [facility] Comment on above: Performed By: #### B MP, FT4, TIBCFE, TSH, B12, TOI #### [facility] [address] [place] [address] 20054 Monocytes (Bld) [#/Vol] 1.1 10*3/uL High 0.1-1.0 [facility] Comment on above: Performed By: #### B MP, FT4, TIBCFE, TSH, B12, TOI #### [facility] [address] [place] [address] 93740 MYELOCYTES 3 % High 0-0 [facility] Comment on above: Performed By: #### B MP, FT4, TIBCFE, TSH, B12, TOI #### [facility] [address] [place] [address] NEUTROPHILS 66 % Normal 47-73 [facility] Comment on above: Performed By: #### B MP, FT4, TIBCFE, TSH, B12, TOI #### [facility] [address] [place] [address] Neutrophils (Bld) [#/Vol] 10.0 10*3/uL High 2.3-7.9 [facility] Comment on above: Performed By: #### B MP, FT4, TIBCFE, TSH, B12, TOI #### [facility] [address] [place] [address] 24064 PLATELET SUFFICIENCY NORMAL Normal NORMAL [facility] Comment on above: Performed By: #### B MP, FT4, TIBCFE, TSH, B12, TOI #### [facility] [address] [place] [address] 53579 RBC morphology finding Nom (Bld) NORMAL Normal NORMAL [facility] Comment on above: Performed By: #### B MP, FT4, TIBCFE, TSH, B12, TOI #### [facility] [address] [place] [address] 46545 BASIC METABOLIC PANELon 11-0 Calcium [Mass/Vol] 9.3 mg/dL Normal 8.5-10.5 [facility] Comment on above: Performed By: #### B MP, FT4, TIBCFE, TSH, B12, TOI #### [facility] [address] [place] [address] 68897 Chloride [Moles/Vol] 103 mmol/L Normal 98-107 [facility] Comment on above: Performed By: #### B MP, FT4, TIBCFE, TSH, B12, TOI #### [facility] [address] [place] [address] 34528 CO2 [Moles/Vol] 35 mmol/L High 21-32 [facility] Comment on above: Performed By: #### B MP, FT4, TIBCFE, TSH, B12, TOI #### [facility] [address] [place] [address] Creatinine [Mass/Vol] 0.85 mg/dL Normal 0.55-1.02 [facility] Comment on above: Performed By: #### B MP, FT4, TIBCFE, TSH, B12, TOI #### [facility] [address] [place] [address] EST GLOM FILT > 60 Normal [facility] Comment on above: Result Comment: Result Units: [...] MP, FT4, TIBCFE, TSH, B12, TOI #### [facility] [address] [place] [address] ESTIMATED GLOM FILT RATE > 60 Normal [facility] Comment on above: Performed By: #### B MP, FT4, TIBCFE, TSH, B12, TOI #### [facility] [address] [place] [address] Glucose [Mass/Vol] 116 mg/dL High 65-99 [facility] Comment on above: Performed By: #### B MP, FT4, TIBCFE, TSH, B12, TOI #### [facility] [address] [place] [address] Potassium [Moles/Vol] 3.7 mmol/L Normal 3.5-5.1 [facility] Comment on above: Performed By: #### B MP, FT4, TIBCFE, TSH, B12, TOI #### [facility] [address] [place] [address] Sodium [Moles/Vol] 142 mmol/L Normal 136-145 [facility] Comment on above: Performed By: #### B MP, FT4, TIBCFE, TSH, B12, TOI #### [facility] [address] [place] [address] Urea nitrogen [Mass/Vol] 23 mg/dL Normal 7-24 [facility] Comment on above: Performed By: #### B MP, FT4, TIBCFE, TSH, B12, TOI #### [facility] [address] [place] [address] 06936 CBC with DIFFERENTIALon Hematocrit (Bld) [Volume fraction] 43.5 % Normal 37.0-47.0 [facility] Comment on above: Performed By: #### B MP, FT4, TIBCFE, TSH, B12, TOI #### [facility] [address] [place] [address] 63345 Hemoglobin (Bld) [Mass/Vol] 13.7 g/dL Normal 12.0-16.0 [facility] Comment on above: Performed By: #### B MP, FT4, TIBCFE, TSH, B12, TOI #### [facility] [address] [place] [address] 56983 MCH (RBC) [Entitic mass] 31.5 g/dl Low 33.0-37.0 [facility] Comment on above: Performed By: #### B MP, FT4, TIBCFE, TSH, B12, TOI #### [facility] [address] [place] [address] 41373 MCV (RBC) [Entitic vol] 100.0 fL High 81.0-99.0 [facility] Comment on above: Performed By: #### B MP, FT4, TIBCFE, TSH, B12, TOI #### [facility] [address] [place] [address] 86566 MEAN CORPUSCULAR HGB 31.5 pg High 27.0-31.0 [facility] Comment on above: Performed By: #### B MP, FT4, TIBCFE, TSH, B12, TOI #### [facility] [address] [place] [address] 64963 NUCLEATED RED BLOOD CELL 0.0 % Normal 0.0-0.0 [facility] Comment on above: Performed By: #### B MP, FT4, TIBCFE, TSH, B12, TOI #### [facility] [address] [place] [address] 02156 NUCLEATED RED BLOOD CELL 0.0 10*3/uL Normal 0.0-0.0 [facility] Comment on above: Performed By: #### B MP, FT4, TIBCFE, TSH, B12, TOI #### [facility] [address] [place] [address] 51312 PLATELET COUNT AUTOMATED 301 10*3/uL Normal 130-400 [facility] Comment on above: Performed By: #### B MP, FT4, TIBCFE, TSH, B12, TOI #### [facility] [address] [place] [address] 71227 Platelet mean volume (Bld) [Entitic vol] 9.8 fL Normal 9.6-12.3 [facility] Comment on above: Performed By: #### B MP, FT4, TIBCFE, TSH, B12, TOI #### [facility] [address] [place] [address] 21920 RBC (Bld) [#/Vol] 4.35 10*6/uL Normal 4.10-5.10 [facility] Comment on above: Performed By: #### B MP, FT4, TIBCFE, TSH, B12, TOI #### [facility] [address] [place] [address] 44422 RED CELL DISTRI WIDTH 13.8 % Normal 0-14.5 [facility] Comment on above: Performed By: #### B MP, FT4, TIBCFE, TSH, B12, TOI #### [facility] [address] [place] [address] WBC (Bld) [#/Vol] 15.3 10*3/uL High 4.8-10.8 [facility] Comment on above: Performed By: #### B MP, FT4, TIBCFE, TSH, B12, TOI #### [facility] [address] [place] [address] 39917 MANUAL DIFFERENTIALon 2018 Basophils (Bld) [#/Vol] 0.0 10*3/uL Normal 0-0.1 [facility] Comment on above: Performed By: #### B MP, FT4, TIBCFE, TSH, B12, TOI #### [facility] [address] [place] [address] 32587 EOSINOPHIL # 0.0 10*3/uL Normal 0-0.4 [facility] Comment on above: Performed By: #### B MP, FT4, TIBCFE, TSH, B12, TOI #### [facility] [address] [place] [address] 48185 IMMATURE GRANULOCYTES # 0.9 10*3/uL High 0-0.1 [facility] Comment on above: Performed By: #### B MP, FT4, TIBCFE, TSH, B12, TOI #### [facility] [address] [place] [address] 41343 LYMPHOCYTES 9 % Low 27-41 [facility] Comment on above: Performed By: #### B MP, FT4, TIBCFE, TSH, B12, TOI #### [facility] [address] [place] [address] 05171 Lymphocytes (Bld) [#/Vol] 1.4 10*3/uL Normal 1.3-4.4 [facility] Comment on above: Performed By: #### B MP, FT4, TIBCFE, TSH, B12, TOI #### [facility] [address] [place] [address] 29966 MACROCYTOSIS SLIGHT Normal [facility] Comment on above: Performed By: #### B MP, FT4, TIBCFE, TSH, B12, TOI #### [facility] [address] [place] [address] METAMYELOCYTES 3 % High 0-0 [facility] Comment on above: Performed By: #### B MP, FT4, TIBCFE, TSH, B12, TOI #### [facility] [address] [place] [address] MONOCYTES 4 % Normal 3-9 [facility] Comment on above: Performed By: #### B MP, FT4, TIBCFE, TSH, B12, TOI #### [facility] [address] [place] [address] 46907 Monocytes (Bld) [#/Vol] 0.6 10*3/uL Normal 0.1-1.0 [facility] Comment on above: Performed By: #### B MP, FT4, TIBCFE, TSH, B12, TOI #### [facility] [address] [place] [address] 96316 MYELOCYTES 3 % High 0-0 [facility] Comment on above: Performed By: #### B MP, FT4, TIBCFE, TSH, B12, TOI #### [facility] [address] [place] [address] 72344 NEUTROPHILS 81 % High 47-73 [facility] Comment on above: Performed By: #### B MP, FT4, TIBCFE, TSH, B12, TOI #### [facility] [address] [place] [address] 45891 Neutrophils (Bld) [#/Vol] 12.4 10*3/uL High 2.3-7.9 [facility] Comment on above: Performed By: #### B MP, FT4, TIBCFE, TSH, B12, TOI #### [facility] [address] [place] [address] 40803 PLATELET SUFFICIENCY NORMAL Normal NORMAL [facility] Comment on above: Performed By: #### B MP, FT4, TIBCFE, TSH, B12, TOI #### [facility] [address] [place] [address] TARGET CELLS FEW Normal [facility] Comment on above: Performed By: #### B MP, FT4, TIBCFE, TSH, B12, TOI #### [facility] [address] [place] [address] PROGRESS NOTEon 12-26-2018 [facility] [place], [place] PROGRESS NOTE NAME: ROSA LANDERS UNIT #: [id number] ROOM: [facility] DOCTOR: KIKI GUERRERO MD,CAM BIRTHDATE: [birth year] DOS: [...] CAM GUERRERO MD 12/26/18 1348 interface Normal [facility] BASIC METABOLIC PANELon 11-0 Calcium [Mass/Vol] 9.1 mg/dL Normal 8.5-10.5 [facility] Comment on above: Performed By: #### B MP, FT4, TIBCFE, TSH, B12, TOI #### [facility] [address] [place] [address] Chloride [Moles/Vol] 108 mmol/L High 98-107 [facility] Comment on above: Performed By: #### B MP, FT4, TIBCFE, TSH, B12, TOI #### [facility] [address] [place] [address] CO2 [Moles/Vol] 29 mmol/L Normal 21-32 [facility] Comment on above: Performed By: #### B MP, FT4, TIBCFE, TSH, B12, TOI #### [facility] [address] [place] [address] Creatinine [Mass/Vol] 0.80 mg/dL Normal 0.55-1.02 [facility] Comment on above: Performed By: #### B MP, FT4, TIBCFE, TSH, B12, TOI #### [facility] [address] [place] [address] EST GLOM FILT > 60 Normal [facility] Comment on above: Result Comment: Result Units: [...] MP, FT4, TIBCFE, TSH, B12, TOI #### [facility] [address] [place] [address] ESTIMATED GLOM FILT RATE > 60 Normal [facility] Comment on above: Performed By: #### B MP, FT4, TIBCFE, TSH, B12, TOI #### [facility] [address] [place] [address] Glucose [Mass/Vol] 122 mg/dL High 65-99 [facility] Comment on above: Performed By: #### B MP, FT4, TIBCFE, TSH, B12, TOI #### [facility] [address] [place] [address] Potassium [Moles/Vol] 3.8 mmol/L Normal 3.5-5.1 [facility] Comment on above: Performed By: #### B MP, FT4, TIBCFE, TSH, B12, TOI #### [facility] [address] [place] [address] Sodium [Moles/Vol] 143 mmol/L Normal 136-145 [facility] Comment on above: Performed By: #### B MP, FT4, TIBCFE, TSH, B12, TOI #### [facility] [address] [place] [address] Urea nitrogen [Mass/Vol] 22 mg/dL Normal 7-24 [facility] Comment on above: Performed By: #### B MP, FT4, TIBCFE, TSH, B12, TOI #### [facility] [address] [place] [address] 69439 CBC with DIFFERENTIALon 11-0 Hematocrit (Bld) [Volume fraction] 40.0 % Normal 37.0-47.0 [facility] Comment on above: Performed By: #### B MP, FT4, TIBCFE, TSH, B12, TOI #### [facility] [address] [place] [address] 91309 Hemoglobin (Bld) [Mass/Vol] 12.7 g/dL Normal 12.0-16.0 [facility] Comment on above: Performed By: #### B MP, FT4, TIBCFE, TSH, B12, TOI #### [facility] [address] [place] [address] 04236 MCH (RBC) [Entitic mass] 31.8 g/dl Low 33.0-37.0 [facility] Comment on above: Performed By: #### B MP, FT4, TIBCFE, TSH, B12, TOI #### [facility] [address] [place] [address] 47813 MCV (RBC) [Entitic vol] 99.5 fL High 81.0-99.0 [facility] Comment on above: Performed By: #### B MP, FT4, TIBCFE, TSH, B12, TOI #### [facility] [address] [place] [address] 21319 MEAN CORPUSCULAR HGB 31.6 pg High 27.0-31.0 [facility] Comment on above: Performed By: #### B MP, FT4, TIBCFE, TSH, B12, TOI #### [facility] [address] [place] [address] 48527 NUCLEATED RED BLOOD CELL 0.0 10*3/uL Normal 0.0-0.0 [facility] Comment on above: Performed By: #### B MP, FT4, TIBCFE, TSH, B12, TOI #### [facility] [address] [place] [address] 33818 NUCLEATED RED BLOOD CELL 0.0 % Normal 0.0-0.0 [facility] Comment on above: Performed By: #### B MP, FT4, TIBCFE, TSH, B12, TOI #### [facility] [address] [place] [address] 47165 PLATELET COUNT AUTOMATED 242 10*3/uL Normal 130-400 [facility] Comment on above: Performed By: #### B MP, FT4, TIBCFE, TSH, B12, TOI #### [facility] [address] [place] [address] Platelet mean volume (Bld) [Entitic vol] 9.7 fL Normal 9.6-12.3 [facility] Comment on above: Performed By: #### B MP, FT4, TIBCFE, TSH, B12, TOI #### [facility] [address] [place] [address] 50557 RBC (Bld) [#/Vol] 4.02 10*6/uL Low 4.10-5.10 [facility] Comment on above: Performed By: #### B MP, FT4, TIBCFE, TSH, B12, TOI #### [facility] [address] [place] [address] 12118 RED CELL DISTRI WIDTH 13.8 % Normal 0-14.5 [facility] Comment on above: Performed By: #### B MP, FT4, TIBCFE, TSH, B12, TOI #### [facility] [address] [place] [address] 45146 WBC (Bld) [#/Vol] 12.6 10*3/uL High 4.8-10.8 [facility] Comment on above: Performed By: #### B MP, FT4, TIBCFE, TSH, B12, TOI #### [facility] [address] [place] [address] 84380 MANUAL DIFFERENTIALon 2018 Basophils (Bld) [#/Vol] 0.0 10*3/uL Normal 0-0.1 [facility] Comment on above: Performed By: #### B MP, FT4, TIBCFE, TSH, B12, TOI #### [facility] [address] [place] [address] 05932 EOSINOPHIL # 0.0 10*3/uL Normal 0-0.4 [facility] Comment on above: Performed By: #### B MP, FT4, TIBCFE, TSH, B12, TOI #### [facility] [address] [place] [address] 08462 IMMATURE GRANULOCYTES # 0.0 10*3/uL Normal 0-0.1 [facility] Comment on above: Performed By: #### B MP, FT4, TIBCFE, TSH, B12, TOI #### [facility] [address] [place] [address] LYMPHOCYTES 9 % Low 27-41 [facility] Comment on above: Performed By: #### B MP, FT4, TIBCFE, TSH, B12, TOI #### [facility] [address] [place] [address] 46681 Lymphocytes (Bld) [#/Vol] 1.1 10*3/uL Low 1.3-4.4 [facility] Comment on above: Performed By: #### B MP, FT4, TIBCFE, TSH, B12, TOI #### [facility] [address] [place] [address] 13012 MONOCYTES 1 % Low 3-9 [facility] Comment on above: Performed By: #### B MP, FT4, TIBCFE, TSH, B12, TOI #### [facility] [address] [place] [address] 59560 Monocytes (Bld) [#/Vol] 0.1 10*3/uL Normal 0.1-1.0 [facility] Comment on above: Performed By: #### B MP, FT4, TIBCFE, TSH, B12, TOI #### [facility] [address] [place] [address] 66235 NEUTROPHILS 90 % High 47-73 [facility] Comment on above: Performed By: #### B MP, FT4, TIBCFE, TSH, B12, TOI #### [facility] [address] [place] [address] 77596 Neutrophils (Bld) [#/Vol] 11.3 10*3/uL High 2.3-7.9 [facility] Comment on above: Performed By: #### B MP, FT4, TIBCFE, TSH, B12, TOI #### [facility] [address] [place] [address] 30014 PLATELET SUFFICIENCY NORMAL Normal NORMAL [facility] Comment on above: Performed By: #### B MP, FT4, TIBCFE, TSH, B12, TOI #### [facility] [address] [place] [address] RBC morphology finding Nom (Bld) NORMAL Normal NORMAL [facility] Comment on above: Performed By: #### B MP, FT4, TIBCFE, TSH, B12, TOI #### [facility] [address] [place] [address] PROGRESS NOTEon 12-25-2018 [place] Report [place], [place] PROGRESS NOTE NAME: ROSA LANDERS UNIT #: [id number] ROOM: [facility] DOCTOR: CAM PADILLA MD BIRTHDATE: [birth year] DOS: [...] the illness and available any new data. [place], [place] PROGRESS NOTE NAME: ROSA LANDERS UNIT #: [id number] ROOM: [facility] DOCTOR: CAM PADILLA MD BIRTHDATE: [birth year] CAM SWANSON MD CM:PNTRANS [id number] CAM GUERRERO MD 12/25/18 1345 interface Normal [facility] US VENOUS LOWER EXT BILATERA Kamaljit 12-25-2018 USVENLEB Name: ROSA LANDERS Phys: CAM PADILLA MD : 1940 Age: 78 Sex: F Acct: [id number] Loc: 502 1 Exam Date: 12/25/2018 Status: ADM IN Radiology No: [id number] Unit No: [id number] EXAM# TYPE/EXAM RESULT [id number] US/US VENOUS LOWER EXT BILATERA SEE REPORT [...] M.D. CC: JERRY GIBSON MD Technologist: MAIRA MARTINEZ Transcribed Date/Time: 12/25/2018 (1943) Seed Technician: SRI Printed Date/Time: 12/25/2018 (284) PAGE 1 Signed Report Normal [facility] ACT PARTIAL THROMBO TIMEon 1 02-23-2018 ACT PARTIAL THROMBO TIME 40.2 SECONDS High 20.0-32.1 [facility] Comment on above: Result Comment: APTT THERAPEUTIC RANGE = 46.3 TO 76.1 SECONDS Performed By: #### B MP, FT4, TIBCFE, TSH, B12, TOI #### [facility] [address] [place] [address] 16075 ACT PARTIAL THROMBO TIME 25.1 SECONDS Normal 20.0-32.1 [facility] Comment on above: Result Comment: APTT THERAPEUTIC RANGE = 46.3 TO 76.1 SECONDS Performed By: #### B MP, FT4, TIBCFE, TSH, B12, TOI #### [facility] [address] [place] [address] 70315 BASIC METABOLIC PANELon 11-0 Calcium [Mass/Vol] 8.8 mg/dL Normal 8.5-10.5 [facility] Comment on above: Performed By: #### B MP, FT4, TIBCFE, TSH, B12, TOI #### [facility] [address] [place] [address] 04305 Chloride [Moles/Vol] 107 mmol/L Normal 98-107 [facility] Comment on above: Performed By: #### B MP, FT4, TIBCFE, TSH, B12, TOI #### [facility] [address] [place] [address] 28567 CO2 [Moles/Vol] 29 mmol/L Normal 21-32 [facility] Comment on above: Performed By: #### B MP, FT4, TIBCFE, TSH, B12, TOI #### [facility] [address] [place] [address] 42042 Creatinine [Mass/Vol] 0.85 mg/dL Normal 0.55-1.02 [facility] Comment on above: Performed By: #### B MP, FT4, TIBCFE, TSH, B12, TOI #### [facility] [address] [place] [address] EST GLOM FILT > 60 Normal [facility] Comment on above: Result Comment: Result Units: [...] MP, FT4, TIBCFE, TSH, B12, TOI #### [facility] [address] [place] [address] ESTIMATED GLOM FILT RATE > 60 Normal [facility] Comment on above: Performed By: #### B MP, FT4, TIBCFE, TSH, B12, TOI #### [facility] [address] [place] [address] Glucose [Mass/Vol] 114 mg/dL High 65-99 [facility] Comment on above: Performed By: #### B MP, FT4, TIBCFE, TSH, B12, TOI #### [facility] [address] [place] [address] Potassium [Moles/Vol] 3.8 mmol/L Normal 3.5-5.1 [facility] Comment on above: Performed By: #### B MP, FT4, TIBCFE, TSH, B12, TOI #### [facility] [address] [place] [address] Sodium [Moles/Vol] 142 mmol/L Normal 136-145 [facility] Comment on above: Performed By: #### B MP, FT4, TIBCFE, TSH, B12, TOI #### [facility] [address] [place] [address] Urea nitrogen [Mass/Vol] 19 mg/dL Normal 7-24 [facility] Comment on above: Performed By: #### B MP, FT4, TIBCFE, TSH, B12, TOI #### [facility] [address] [place] [address] CBC with DIFFERENTIALon 11-0 Hematocrit (Bld) [Volume fraction] 37.4 % Normal 37.0-47.0 [facility] Comment on above: Performed By: #### B MP, FT4, TIBCFE, TSH, B12, TOI #### [facility] [address] [place] [address] Hemoglobin (Bld) [Mass/Vol] 12.0 g/dL Normal 12.0-16.0 [facility] Comment on above: Performed By: #### B MP, FT4, TIBCFE, TSH, B12, TOI #### [facility] [facility] [address] [place] [address] MCH (RBC) [Entitic mass] 32.1 g/dl Low 33.0-37.0 [facility] Comment on above: Performed By: #### B MP, FT4, TIBCFE, TSH, B12, TOI #### [facility] [address] [place] [address] MCV (RBC) [Entitic vol] 100.0 fL High 81.0-99.0 [facility] Comment on above: Performed By: #### B MP, FT4, TIBCFE, TSH, B12, TOI #### [facility] [address] [place] [address] MEAN CORPUSCULAR HGB 32.1 pg High 27.0-31.0 [facility] Comment on above: Performed By: #### B MP, FT4, TIBCFE, TSH, B12, TOI #### [facility] [address] [place] [address] NUCLEATED RED BLOOD CELL 0.0 % Normal 0.0-0.0 [facility] Comment on above: Performed By: #### B MP, FT4, TIBCFE, TSH, B12, TOI #### [facility] [address] [place] [address]70[address] NUCLEATED RED BLOOD CELL 0.0 10*3/uL Normal 0.0-0.0 [facility] Comment on above: Performed By: #### B MP, FT4, TIBCFE, TSH, B12, TOI #### [facility] [address] [place] [address] 36860 PLATELET COUNT AUTOMATED 230 10*3/uL Normal 130-400 [facility] Comment on above: Performed By: #### B MP, FT4, TIBCFE, TSH, B12, TOI #### [facility] [address] [place] [address] 33648 Platelet mean volume (Bld) [Entitic vol] 9.9 fL Normal 9.6-12.3 [facility] Comment on above: Result Comment: 05/09 0747: THIS IS A CORRECTED REPORT. NEUT % previously reported as: 84.6 H% Edited By:LAB.RLK Reason:RELEASED WITHOUT A MANUAL DIFFERENTIAL Called to:KODAK GUERRERO RN LAB.RLK 12/24/18. Performed By: #### B MP, FT4, TIBCFE, TSH, B12, TOI #### [facility] [address] [place] [address] 14483 RBC (Bld) [#/Vol] 3.74 10*6/uL Low 4.10-5.10 [facility] Comment on above: Performed By: #### B MP, FT4, TIBCFE, TSH, B12, TOI #### [facility] [address] [place] [address] 72362 RED CELL DISTRI WIDTH 13.8 % Normal 0-14.5 [facility] Comment on above: Performed By: #### B MP, FT4, TIBCFE, TSH, B12, TOI #### [facility] [address] [place] [address] 43703 WBC (Bld) [#/Vol] 14.4 10*3/uL High 4.8-10.8 [facility] Comment on above: Performed By: #### B MP, FT4, TIBCFE, TSH, B12, TOI #### [facility] [address] [place] [address] Hematocrit (Bld) [Volume fraction] 37.6 % Normal 37.0-47.0 [facility] Comment on above: Performed By: #### B MP, FT4, TIBCFE, TSH, B12, TOI #### [facility] [address] [place] [address] 35831 Hemoglobin (Bld) [Mass/Vol] 12.2 g/dL Normal 12.0-16.0 [facility] Comment on above: Performed By: #### B MP, FT4, TIBCFE, TSH, B12, TOI #### [facility] [address] [place] [address] MCH (RBC) [Entitic mass] 32.4 g/dl Low 33.0-37.0 [facility] Comment on above: Performed By: #### B MP, FT4, TIBCFE, TSH, B12, TOI #### [facility] [address] [place] [address] 26188 MCV (RBC) [Entitic vol] 99.5 fL High 81.0-99.0 [facility] Comment on above: Performed By: #### B MP, FT4, TIBCFE, TSH, B12, TOI #### [facility] [address] [place] [address] 87370 MEAN CORPUSCULAR HGB 32.3 pg High 27.0-31.0 [facility] Comment on above: Performed By: #### B MP, FT4, TIBCFE, TSH, B12, TOI #### [facility] [address] [place] [address] 99689 NUCLEATED RED BLOOD CELL 0.0 10*3/uL Normal 0.0-0.0 [facility] Comment on above: Performed By: #### B MP, FT4, TIBCFE, TSH, B12, TOI #### [facility] [address] [place] [address] NUCLEATED RED BLOOD CELL 0.0 % Normal 0.0-0.0 [facility] Comment on above: Performed By: #### B MP, FT4, TIBCFE, TSH, B12, TOI #### [facility] [address] [place] [address] 77426 PLATELET COUNT AUTOMATED 230 10*3/uL Normal 130-400 [facility] Comment on above: Performed By: #### B MP, FT4, TIBCFE, TSH, B12, TOI #### [facility] [address] [place] [address] 20068 Platelet mean volume (Bld) [Entitic vol] 9.8 fL Normal 9.6-12.3 [facility] Comment on above: Performed By: #### B MP, FT4, TIBCFE, TSH, B12, TOI #### [facility] [address] [place] [address] 11347 RBC (Bld) [#/Vol] 3.78 10*6/uL Low 4.10-5.10 [facility] Comment on above: Performed By: #### B MP, FT4, TIBCFE, TSH, B12, TOI #### [facility] [address] [place] [address] 68256 RED CELL DISTRI WIDTH 13.8 % Normal 0-14.5 [facility] Comment on above: Performed By: #### B MP, FT4, TIBCFE, TSH, B12, TOI #### [facility] [address] [place] [address] 72308 WBC (Bld) [#/Vol] 15.8 10*3/uL High 4.8-10.8 [facility] Comment on above: Performed By: #### B MP, FT4, TIBCFE, TSH, B12, TOI #### [facility] [address] [place] [address] 294[address] CTA CHESTon 12-24-2018 CTA-CHST Name: ROSA LANDERS Phys: CAM PADILLA MD : 1940 Age: 78 Sex: F Acct: [id number] Loc: 502 1 Exam Date: 12/23/2018 Status: ADM IN Radiology No: [id number] Unit No: [id number] EXAM# TYPE/EXAM RESULT [id number] CT/CTA CHEST SEE REPORT INDICATION: Shortness of [...] arteries. PAGE 1 Signed Report (CONTINUED) Name: ABENAROSA Phys: CAM PADILLA MD : 1940 Age: 78 Sex: F Acct: [id number] Loc: 502 1 Exam Date: 12/23/2018 Status: ADM IN Radiology No: [id number] Unit No: [id number] EXAM# TYPE/EXAM RESULT [id number] CT/CTA CHEST SEE REPORT Questionable filling defect [...] Technologist: ARIEL MATA Transcribed Date/Time: 12/24/2018 (0044) Seed Technician: SRI Printed Date/Time: 12/24/2018 (0044) PAGE 2 Signed Report Normal [facility] MANUAL DIFFERENTIALon 2018 Basophils (Bld) [#/Vol] 0.0 10*3/uL Normal 0-0.1 [facility] Comment on above: Performed By: #### B MP, FT4, TIBCFE, TSH, B12, TOI #### [facility] [address] [place] [address] EOSINOPHIL # 0.0 10*3/uL Normal 0-0.4 [facility] Comment on above: Performed By: #### B MP, FT4, TIBCFE, TSH, B12, TOI #### [facility] [address] [place] [address] IMMATURE GRANULOCYTES # 0.0 10*3/uL Normal 0-0.1 [facility] Comment on above: Performed By: #### B MP, FT4, TIBCFE, TSH, B12, TOI #### [facility] [address] [place] [address] LYMPHOCYTES 4 % Low 27-41 [facility] Comment on above: Performed By: #### B MP, FT4, TIBCFE, TSH, B12, TOI #### [facility] [address] [place] [address] Lymphocytes (Bld) [#/Vol] 0.6 10*3/uL Low 1.3-4.4 [facility] Comment on above: Performed By: #### B MP, FT4, TIBCFE, TSH, B12, TOI #### [facility] [address] [place] [address] 81186 MACROCYTOSIS SLIGHT Normal [facility] Comment on above: Performed By: #### B MP, FT4, TIBCFE, TSH, B12, TOI #### [facility] [address] [place] [address] 38600 MONOCYTES 3 % Normal 3-9 [facility] Comment on above: Performed By: #### B MP, FT4, TIBCFE, TSH, B12, TOI #### [facility] [address] [place] [address] 02688 Monocytes (Bld) [#/Vol] 0.4 10*3/uL Normal 0.1-1.0 [facility] Comment on above: Performed By: #### B MP, FT4, TIBCFE, TSH, B12, TOI #### [facility] [address] [place] [address] 86232 NEUTROPHILS 93 % High 47-73 [facility] Comment on above: Performed By: #### B MP, FT4, TIBCFE, TSH, B12, TOI #### [facility] [address] [place] [address] 57688 Neutrophils (Bld) [#/Vol] 13.4 10*3/uL High 2.3-7.9 [facility] Comment on above: Performed By: #### B MP, FT4, TIBCFE, TSH, B12, TOI #### [facility] [address] [place] [address] 59061 PLATELET SUFFICIENCY NORMAL Normal NORMAL [facility] Comment on above: Performed By: #### B MP, FT4, TIBCFE, TSH, B12, TOI #### [facility] [address] [place] [address] 19598 ATYPICAL LYMPHS 1 % High 0-0 [facility] Comment on above: Performed By: #### B MP, FT4, TIBCFE, TSH, B12, TOI #### [facility] [address] [place] [address] Basophils (Bld) [#/Vol] 0.0 10*3/uL Normal 0-0.1 [facility] Comment on above: Performed By: #### B MP, FT4, TIBCFE, TSH, B12, TOI #### [facility] [address] [place] [address] 12505 EOSINOPHIL # 0.0 10*3/uL Normal 0-0.4 [facility] Comment on above: Performed By: #### B MP, FT4, TIBCFE, TSH, B12, TOI #### [facility] [address] [place] [address] 44839 IMMATURE GRANULOCYTES # 0.2 10*3/uL High 0-0.1 [facility] Comment on above: Performed By: #### B MP, FT4, TIBCFE, TSH, B12, TOI #### [facility] [address] [place] [address] 25188 LYMPHOCYTES 1 % Low 27-41 [facility] Comment on above: Performed By: #### B MP, FT4, TIBCFE, TSH, B12, TOI #### [facility] [address] [place] [address] 09284 Lymphocytes (Bld) [#/Vol] 0.3 10*3/uL Low 1.3-4.4 [facility] Comment on above: Performed By: #### B MP, FT4, TIBCFE, TSH, B12, TOI #### [facility] [address] [place] [address] 50000 METAMYELOCYTES 1 % High 0-0 [facility] Comment on above: Performed By: #### B MP, FT4, TIBCFE, TSH, B12, TOI #### [facility] [address] [place] [address] 27285 MONOCYTES 6 % Normal 3-9 [facility] Comment on above: Performed By: #### B MP, FT4, TIBCFE, TSH, B12, TIO #### [facility] [address] [place] [address] Monocytes (Bld) [#/Vol] 0.9 10*3/uL Normal 0.1-1.0 [facility] Comment on above: Performed By: #### B MP, FT4, TIBCFE, TSH, B12, TOI #### [facility] [address] [place] [address] NEUTROPHILS 91 % High 47-73 [facility] Comment on above: Performed By: #### B MP, FT4, TIBCFE, TSH, B12, TOI #### [facility] [address] [place] [address] Neutrophils (Bld) [#/Vol] 14.4 10*3/uL High 2.3-7.9 [facility] Comment on above: Performed By: #### B MP, FT4, TIBCFE, TSH, B12, TOI #### [facility] [address] [place] [address] PLATELET SUFFICIENCY NORMAL Normal NORMAL [facility] Comment on above: Performed By: #### B MP, FT4, TIBCFE, TSH, B12, TOI #### [facility] [address] [place] [address] PROGRESS NOTEon 12-24-2018 [facility] [place], [place] PROGRESS NOTE NAME: ROSA LANDERS UNIT #: [id number] ROOM: [facility] DOCTOR: MANDO PADILLA MDM BIRTHDATE: [birth year] DOS: [...] cannot be completely excluded. 4. Small epistaxis. [place], [place] PROGRESS [facility]: [id number] UNIT #: [id number] ROOM: [facility] DOCTOR: KIKI GUERRERO MD,CAM BIRTHDATE: [birth year] PLAN [...] CAM GUERRERO MD 01/02/19 0825 interface Normal [facility] PROTHROMBIN TIMEon 9 PT Coag (PPP) [Time] 0.9 s Low 2.0-3.5 [facility] Comment on above: Result Comment: INR THERAPEUTIC RANGE: GROUP A 2.0-3.0 INR GROUP B 2.5-3.5 INR GROUP A SUGGESTED INDICATIONS: PROPHYLAXIS AND TREATMENT OF VENOUS THROMBOSIS TREATMENT OF PULMONARY EMBOLISM ATRIAL FIBRILLATION GROUP B SUGGESTED INDICATIONS: MECHANICAL PROSTHETIC VALVES Performed By: #### B MP, FT4, TIBCFE, TSH, B12, TOI #### [facility] [address] [place] [address] PT Coag (PPP) [Time] 10.3 s Normal 8.9-12.20 [facility] Comment on above: Performed By: #### B MP, FT4, TIBCFE, TSH, B12, TOI #### [facility] [address] [place] [address] BASIC METABOLIC PANELon 11 Calcium [Mass/Vol] 8.6 mg/dL Normal 8.5-10.5 [facility] Comment on above: Performed By: #### B MP, FT4, TIBCFE, TSH, B12, TOI #### [facility] [address] [place] [address] Chloride [Moles/Vol] 112 mmol/L High 98-107 [facility] Comment on above: Performed By: #### B MP, FT4, TIBCFE, TSH, B12, TOI #### [facility] [address] [place] [address] CO2 [Moles/Vol] 26 mmol/L Normal 21-32 [facility] Comment on above: Performed By: #### B MP, FT4, TIBCFE, TSH, B12, TOI #### [facility] [address] [place] [address] Creatinine [Mass/Vol] 0.99 mg/dL Normal 0.55-1.02 [facility] Comment on above: Performed By: #### B MP, FT4, TIBCFE, TSH, B12, TOI #### [facility] [address] [place] [address] EST GLOM FILT > 60 Normal [facility] Comment on above: Result Comment: Result Units: [...] MP, FT4, TIBCFE, TSH, B12, TOI #### [facility] [address] [place] [address] ESTIMATED GLOM FILT RATE 54 mL/min/ Low [facility] Comment on above: Performed By: #### B MP, FT4, TIBCFE, TSH, B12, TOI #### [facility] [address] [place] [address] Glucose [Mass/Vol] 162 mg/dL High 65-99 [facility] Comment on above: Performed By: #### B MP, FT4, TIBCFE, TSH, B12, TOI #### [facility] [address] [place] [address] Potassium [Moles/Vol] 4.1 mmol/L Normal 3.5-5.1 [facility] Comment on above: Performed By: #### B MP, FT4, TIBCFE, TSH, B12, TOI #### [facility] [address] [place] [address] Sodium [Moles/Vol] 143 mmol/L Normal 136-145 [facility] Comment on above: Performed By: #### B MP, FT4, TIBCFE, TSH, B12, TOI #### [facility] [address] [place] [address] Urea nitrogen [Mass/Vol] 16 mg/dL Normal 7-24 [facility] Comment on above: Performed By: #### B MP, FT4, TIBCFE, TSH, B12, TOI #### [facility] [address] [place] [address] 54423 BLOOD CULTURE AEROBICon BLOOD CULTURE AEROBIC BLOOD CULTURE AEROBIC NO BACTERIAL GROWTH BLOOD CULTURE ANAEROBIC (NOT PROCESSED--PEDIATRIC AEROBIC BOTTLE ONLY) Normal [facility] Comment on above: Performed By: #### B MP, FT4, TIBCFE, TSH, B12, TOI #### [facility] [address] [place] [address] 58883 CBC with DIFFERENTIALon Hematocrit (Bld) [Volume fraction] 38.3 % Normal 37.0-47.0 [facility] Comment on above: Performed By: #### B MP, FT4, TIBCFE, TSH, B12, TOI #### [facility] [address] [place] [address] 90243 Hemoglobin (Bld) [Mass/Vol] 12.2 g/dL Normal 12.0-16.0 [facility] Comment on above: Performed By: #### B MP, FT4, TIBCFE, TSH, B12, TOI #### [facility] [address] [place] [address] MCH (RBC) [Entitic mass] 31.9 g/dl Low 33.0-37.0 [facility] Comment on above: Performed By: #### B MP, FT4, TIBCFE, TSH, B12, TOI #### [facility] [address] [place] [address] MCV (RBC) [Entitic vol] 99.2 fL High 81.0-99.0 [facility] Comment on above: Performed By: #### B MP, FT4, TIBCFE, TSH, B12, TOI #### [facility] [address] [place] [address] 66191 MEAN CORPUSCULAR HGB 31.6 pg High 27.0-31.0 [facility] Comment on above: Performed By: #### B MP, FT4, TIBCFE, TSH, B12, TOI #### [facility] [address] [place] [address] NUCLEATED RED BLOOD CELL 0.0 % Normal 0.0-0.0 [facility] Comment on above: Performed By: #### B MP, FT4, TIBCFE, TSH, B12, TOI #### [facility] [address] [place] [address] NUCLEATED RED BLOOD CELL 0.0 10*3/uL Normal 0.0-0.0 [facility] Comment on above: Performed By: #### B MP, FT4, TIBCFE, TSH, B12, TOI #### [facility] [address] [place] [address] PLATELET COUNT AUTOMATED 210 10*3/uL Normal 130-400 [facility] Comment on above: Performed By: #### B MP, FT4, TIBCFE, TSH, B12, TOI #### [facility] [address] [place] [address] Platelet mean volume (Bld) [Entitic vol] 9.9 fL Normal 9.6-12.3 [facility] Comment on above: Performed By: #### B MP, FT4, TIBCFE, TSH, B12, TOI #### [facility] [address] [place] [address] 24497 RBC (Bld) [#/Vol] 3.86 10*6/uL Low 4.10-5.10 [facility] Comment on above: Performed By: #### B MP, FT4, TIBCFE, TSH, B12, TOI #### [facility] [address] [place] [address] RED CELL DISTRI WIDTH 13.7 % Normal 0-14.5 [facility] Comment on above: Performed By: #### B MP, FT4, TIBCFE, TSH, B12, TOI #### [facility] [address] [place] [address] WBC (Bld) [#/Vol] 14.1 10*3/uL High 4.8-10.8 [facility] Comment on above: Performed By: #### B MP, FT4, TIBCFE, TSH, B12, TOI #### [facility] [address] [place] [address] 60778 CHEST (2 V)on 12-23-2018 [facility]XR Name: ROSA LANDERS Phys: DREW ANTHONY,KATHRYN : 1940 Age: 78 Sex: F Acct: [id number] Loc: 502 1 Exam Date: 12/23/2018 Status: ADM IN Radiology No: [id number] Unit No: [id number] EXAM# TYPE/EXAM RESULT [id number] RAD/CHEST (2 V) SEE REPORT INDICATION: Difficulty [...] Technologist: CAROLINA SOLANO Transcribed Date/Time: 12/23/2018 (2155) Seed Technician: SRI Printed Date/Time: 12/23/2018 (2155) PAGE 1 Signed Report Normal [facility] GRAM STAINon 12-23-2018 Microscopic observation Gram stain Nom (Unsp spec) GRAM STAIN MODERATE WHITE BLOOD CELLS RARE GRAM POSITIVE COCCI IN PAIRS SPUTUM CULTURE NORMAL CHIDI Normal [facility] Comment on above: Performed By: #### B MP, FT4, TIBCFE, TSH, B12, TOI #### [facility] [address] [place] [address] MANUAL DIFFERENTIALon 2018 Basophils (Bld) [#/Vol] 0.0 10*3/uL Normal 0-0.1 [facility] Comment on above: Performed By: #### B MP, FT4, TIBCFE, TSH, B12, TOI #### [facility] [address] [place] [address] 39819 EOSINOPHIL # 0.0 10*3/uL Normal 0-0.4 [facility] Comment on above: Performed By: #### B MP, FT4, TIBCFE, TSH, B12, TOI #### [facility] [address] [place] [address] 25725 IMMATURE GRANULOCYTES # 0.0 10*3/uL Normal 0-0.1 [facility] Comment on above: Performed By: #### B MP, FT4, TIBCFE, TSH, B12, TOI #### [facility] [address] [place] [address] LYMPHOCYTES 8 % Low 27-41 [facility] Comment on above: Performed By: #### B MP, FT4, TIBCFE, TSH, B12, TOI #### [facility] [address] [place] [address] Lymphocytes (Bld) [#/Vol] 1.1 10*3/uL Low 1.3-4.4 [facility] Comment on above: Performed By: #### B MP, FT4, TIBCFE, TSH, B12, TOI #### [facility] [address] [place] [address] MONOCYTES 2 % Low 3-9 [facility] Comment on above: Performed By: #### B MP, FT4, TIBCFE, TSH, B12, TOI #### [facility] [address] [place] [address] Monocytes (Bld) [#/Vol] 0.3 10*3/uL Normal 0.1-1.0 [facility] Comment on above: Performed By: #### B MP, FT4, TIBCFE, TSH, B12, TOI #### [facility] [address] [place] [address] 36072 NEUTROPHILS 90 % High 47-73 [facility] Comment on above: Performed By: #### B MP, FT4, TIBCFE, TSH, B12, TOI #### [facility] [address] [place] [address] 77160 Neutrophils (Bld) [#/Vol] 12.7 10*3/uL High 2.3-7.9 [facility] Comment on above: Performed By: #### B MP, FT4, TIBCFE, TSH, B12, TOI #### [facility] [address] [place] [address] 15206 PLATELET SUFFICIENCY NORMAL Normal NORMAL [facility] Comment on above: Performed By: #### B MP, FT4, TIBCFE, TSH, B12, TOI #### [facility] [address] [place] [address] 16514 RBC morphology finding Nom (Bld) NORMAL Normal NORMAL [facility] Comment on above: Performed By: #### B MP, FT4, TIBCFE, TSH, B12, TOI #### [facility] [address] [place] [address] REPORT OF CONSULTATIONon [facility] [place], [place] REPORT OF CONSULTATION NAME: ROSA LANDERS #: [id number] UNIT #: [id number] ROOM: [facility] DOCTOR: CAM PADILLA MD BIRTHDATE: [birth year] DOS: [...] nicotine dependence. 8. History of allergic rhinitis. [place], [place] REPORT OF CONSULTATION NAME: ROSA LANDERS UNIT #: [id number] ROOM: [facility] DOCTOR: KIKI GUERRERO MD,CAM BIRTHDATE: [birth year] 9. [...] that was done on 12/21/2018, WBC count [place], [place] REPORT OF CONSULTATION NAME: ROSA LANDERS UNIT #: [id number] ROOM: [facility] DOCTOR: KIKI GUERRERO MD,[facility] BIRTHDATE: [birth year] 12.8, hemoglobin, hematocrit [...] OF CONSULTATION 1514 01/02/19 0823 interface Normal [facility] ARTERIAL BLOOD GASon 019 ABG BASE EXCESS 0.9 mmol/L Normal -2.0-2.0 [facility] Comment on above: Order Comment: ROOM AIR? NFIO2 % and/or LITER FLOW: 5LTEMP: 98.8IS THE PATIENT BEING MECHANICALLY VENTILATED? N Performed By: #### B MP, FT4, TIBCFE, TSH, B12, TOI #### [facility] [address] [place] [address] ABG BASE EXCESS CF 0.7 mmol/L Normal -2.0-2.0 [facility] Comment on above: Order Comment: ROOM AIR? NFIO2 % and/or LITER FLOW: 5LTEMP: 98.8IS THE PATIENT BEING MECHANICALLY VENTILATED? N Performed By: #### B MP, FT4, TIBCFE, TSH, B12, TOI #### [facility] [address] [place] [address] ABG CO2 CONTENT 25.8 mmol/L Normal 23-27 [facility] Comment on above: Order Comment: ROOM AIR? NFIO2 % and/or LITER FLOW: 5LTEMP: 98.8IS THE PATIENT BEING MECHANICALLY VENTILATED? N Performed By: #### B MP, FT4, TIBCFE, TSH, B12, TOI #### [facility] [address] [place] [address] ABG HCO3 24.6 mmol/l Normal 22-26 [facility] Comment on above: Order Comment: ROOM AIR? NFIO2 % and/or LITER FLOW: 5LTEMP: 98.8IS THE PATIENT BEING MECHANICALLY VENTILATED? N Performed By: #### B MP, FT4, TIBCFE, TSH, B12, TOI #### [facility] [address] [place] [address] 81156 ARTERIAL BLOOD GAS PCO2 38.2 mmHg Normal 35-45 [facility] Comment on above: Order Comment: ROOM AIR? NFIO2 % and/or LITER FLOW: 5LTEMP: 98.8IS THE PATIENT BEING MECHANICALLY VENTILATED? N Performed By: #### B MP, FT4, TIBCFE, TSH, B12, TOI #### [facility] [address] [place] [address] 84924 ARTERIAL BLOOD GAS PH 7.425 Normal 7.35-7.45 [facility] Comment on above: Order Comment: ROOM AIR? NFIO2 % and/or LITER FLOW: 5LTEMP: 98.8IS THE PATIENT BEING MECHANICALLY VENTILATED? N Performed By: #### B MP, FT4, TIBCFE, TSH, B12, TOI #### [facility] [address] [place] [address] 76134 ARTERIAL BLOOD GAS PO2 58.7 mmHg Low 80-90 [facility] Comment on above: Order Comment: ROOM AIR? NFIO2 % and/or LITER FLOW: 5LTEMP: 98.8IS THE PATIENT BEING MECHANICALLY VENTILATED? N Performed By: #### B MP, FT4, TIBCFE, TSH, B12, TOI #### [facility] [address] [place] [address] 35509 Oxygen saturation in Blood 91.0 % Low 95-97 [facility] Comment on above: Order Comment: ROOM AIR? NFIO2 % and/or LITER FLOW: 5LTEMP: 98.8IS THE PATIENT BEING MECHANICALLY VENTILATED? N Performed By: #### B MP, FT4, TIBCFE, TSH, B12, TOI #### [facility] [address] [place] [address] BASIC METABOLIC PANELon 11-0 Calcium [Mass/Vol] 8.4 mg/dL Low 8.5-10.5 [facility] Comment on above: Performed By: #### B MP, FT4, TIBCFE, TSH, B12, TOI #### [facility] [address] [place] [address] Chloride [Moles/Vol] 102 mmol/L Normal 98-107 [facility] Comment on above: Performed By: #### B MP, FT4, TIBCFE, TSH, B12, TOI #### [facility] [address] [place] [address] CO2 [Moles/Vol] 26 mmol/L Normal 21-32 [facility] Comment on above: Performed By: #### B MP, FT4, TIBCFE, TSH, B12, TOI #### [facility] [address] [place] [address] Creatinine [Mass/Vol] 1.02 mg/dL Normal 0.55-1.02 [facility] Comment on above: Performed By: #### B MP, FT4, TIBCFE, TSH, B12, TOI #### [facility] [address] [place] [address] EST GLOM FILT > 60 Normal [facility] Comment on above: Result Comment: Result Units: [...] MP, FT4, TIBCFE, TSH, B12, TOI #### [facility] [address] [place] [address] ESTIMATED GLOM FILT RATE 53 mL/min/ Low [facility] Comment on above: Performed By: #### B MP, FT4, TIBCFE, TSH, B12, TOI #### [facility] [address] [place] [address] Glucose [Mass/Vol] 157 mg/dL High 65-99 [facility] Comment on above: Performed By: #### B MP, FT4, TIBCFE, TSH, B12, TOI #### [facility] [address] [place] [address] Potassium [Moles/Vol] 4.2 mmol/L Normal 3.5-5.1 [facility] Comment on above: Performed By: #### B MP, FT4, TIBCFE, TSH, B12, TOI #### [facility] [address] [place] [address] Sodium [Moles/Vol] 134 mmol/L Low 136-145 [facility] Comment on above: Performed By: #### B MP, FT4, TIBCFE, TSH, B12, TOI #### [facility] [address] [place] [address] Urea nitrogen [Mass/Vol] 19 mg/dL Normal 7-24 [facility] Comment on above: Performed By: #### B MP, FT4, TIBCFE, TSH, B12, TOI #### [facility] [address] [place] [address] 105[address] CBC with DIFFERENTIALon 11-0 2019 Basophils (Bld) [#/Vol] 0.0 10*3/uL Normal 0.0-0.1 [facility] Comment on above: Performed By: #### B MP, FT4, TIBCFE, TSH, B12, TOI #### [facility] [address] [place] [address] 42038 Basophils/100 WBC (Bld) 0.1 % Normal 0.0-1.0 [facility] Comment on above: Performed By: #### B MP, FT4, TIBCFE, TSH, B12, TOI #### [facility] [address] [place] [address]118 Eosinophils (Bld) [#/Vol] 0.0 10*3/uL Normal 0.0-0.4 [facility] Comment on above: Performed By: #### B MP, FT4, TIBCFE, TSH, B12, TOI #### [facility] [address] [place] [address] 11455 Eosinophils/100 WBC (Bld) 0.0 % Low 1.0-4.0 [facility] Comment on above: Performed By: #### B MP, FT4, TIBCFE, TSH, B12, TOI #### [facility] [address] [place] [address] Hematocrit (Bld) [Volume fraction] 37.5 % Normal 37.0-47.0 [facility] Comment on above: Performed By: #### B MP, FT4, TIBCFE, TSH, B12, TOI #### [facility] [address] [place] [address] 10544 Hemoglobin (Bld) [Mass/Vol] 12.2 g/dL Normal 12.0-16.0 [facility] Comment on above: Performed By: #### B MP, FT4, TIBCFE, TSH, B12, TOI #### [facility] [address] [place] [address] 57022 IG # 0.1 10*3/uL Normal 0.0-0.1 [facility] Comment on above: Performed By: #### B MP, FT4, TIBCFE, TSH, B12, TOI #### [facility] [address] [place] [address] 89001 IG % 0.7 % Normal 0.0-1.0 [facility] Comment on above: Performed By: #### B MP, FT4, TIBCFE, TSH, B12, TOI #### [facility] [address] [place] [address] Lymphocytes (Bld) [#/Vol] 1.0 10*3/uL Low 1.3-4.4 [facility] Comment on above: Performed By: #### B MP, FT4, TIBCFE, TSH, B12, TOI #### [facility] [address] [place] [address] 60272 Lymphocytes/100 WBC (Bld) 8.6 % Low 27.0-41.0 [facility] Comment on above: Performed By: #### B MP, FT4, TIBCFE, TSH, B12, TOI #### [facility] [address] [place] [address] 96245 MCH (RBC) [Entitic mass] 32.5 g/dl Low 33.0-37.0 [facility] Comment on above: Performed By: #### B MP, FT4, TIBCFE, TSH, B12, TOI #### [facility] [address] [place] [address] 60537 MCV (RBC) [Entitic vol] 97.2 fL Normal 81.0-99.0 [facility] Comment on above: Performed By: #### B MP, FT4, TIBCFE, TSH, B12, TOI #### [facility] [address] [place] [address] 52569 MEAN CORPUSCULAR HGB 31.6 pg High 27.0-31.0 [facility] Comment on above: Performed By: #### B MP, FT4, TIBCFE, TSH, B12, TOI #### [facility] [address] [place] [address] 45209 Monocytes (Bld) [#/Vol] 0.1 10*3/uL Normal 0.1-1.0 [facility] Comment on above: Performed By: #### B MP, FT4, TIBCFE, TSH, B12, TOI #### [facility] [address] [place] [address] 35553 Monocytes/100 WBC (Bld) 0.9 % Low 3.0-9.0 [facility] Comment on above: Performed By: #### B MP, FT4, TIBCFE, TSH, B12, TOI #### [facility] [address] [place] [address] 03765 Neutrophils (Bld) [#/Vol] 10.0 10*3/uL High 2.3-7.9 [facility] Comment on above: Performed By: #### B MP, FT4, TIBCFE, TSH, B12, TOI #### [facility] [address] [place] [address] 35809 Neutrophils/100 WBC (Bld) 89.7 % High 47.0-73.0 [facility] Comment on above: Performed By: #### B MP, FT4, TIBCFE, TSH, B12, TOI #### [facility] [address] [place] [address] 83151 NUCLEATED RED BLOOD CELL 0.0 % Normal 0.0-0.0 [facility] Comment on above: Performed By: #### B MP, FT4, TIBCFE, TSH, B12, TOI #### [facility] [address] [place] [address] 30409 NUCLEATED RED BLOOD CELL 0.0 10*3/uL Normal 0.0-0.0 [facility] Comment on above: Performed By: #### B MP, FT4, TIBCFE, TSH, B12, TOI #### [facility] [address] [place] [address] 93114 PLATELET COUNT AUTOMATED 194 10*3/uL Normal 130-400 [facility] Comment on above: Performed By: #### B MP, FT4, TIBCFE, TSH, B12, TOI #### [facility] [address] [place] [address] 38605 Platelet mean volume (Bld) [Entitic vol] 10.4 fL Normal 9.6-12.3 [facility] Comment on above: Performed By: #### B MP, FT4, TIBCFE, TSH, B12, TOI #### [facility] [address] [place] [address] RBC (Bld) [#/Vol] 3.86 10*6/uL Low 4.10-5.10 [facility] Comment on above: Performed By: #### B MP, FT4, TIBCFE, TSH, B12, TOI #### [facility] [address] [place] [address] 26869 RED CELL DISTRI WIDTH 13.5 % Normal 0-14.5 [facility] Comment on above: Performed By: #### B MP, FT4, TIBCFE, TSH, B12, TOI #### [facility] [address] [place] [address] 89751 WBC (Bld) [#/Vol] 11.2 10*3/uL High 4.8-10.8 [facility] Comment on above: Performed By: #### B MP, FT4, TIBCFE, TSH, B12, TOI #### [facility] [address] [place] [address] 427[address] MAGNESIUMon 12-22-2018 Magnesium [Mass/Vol] 2.4 mg/dL High 1.5-2.1 [facility] Comment on above: Performed By: #### B MP, FT4, TIBCFE, TSH, B12, TOI #### [facility] [address] [place] [address] 32590 PHOSPHOROUSon 12-22-2018 PHOSPHOROUS 3.6 mg/dL Normal 2.5-4.9 [facility] Comment on above: Performed By: #### B MP, FT4, TIBCFE, TSH, B12, TOI #### [facility] [address] [place] [address] 02962 CBC with DIFFERENTIALon 10-3 Basophils (Bld) [#/Vol] 0.0 10*3/uL Normal 0.0-0.1 [facility] Comment on above: Performed By: #### B MP, FT4, TIBCFE, TSH, B12, TOI #### [facility] [address] [place] [address] 88309 Basophils/100 WBC (Bld) 0.2 % Normal 0.0-1.0 [facility] Comment on above: Performed By: #### B MP, FT4, TIBCFE, TSH, B12, TOI #### [facility] [address] [place] [address] 25613 Eosinophils (Bld) [#/Vol] 0.1 10*3/uL Normal 0.0-0.4 [facility] Comment on above: Performed By: #### B MP, FT4, TIBCFE, TSH, B12, TOI #### [facility] [address] [place] [address] 02525 Eosinophils/100 WBC (Bld) 0.7 % Low 1.0-4.0 [facility] Comment on above: Performed By: #### B MP, FT4, TIBCFE, TSH, B12, TOI #### [facility] [address] [place] [address] 84157 Hematocrit (Bld) [Volume fraction] 41.0 % Normal 37.0-47.0 [facility] Comment on above: Performed By: #### B MP, FT4, TIBCFE, TSH, B12, TOI #### [facility] [address] [place] [address] 37279 Hemoglobin (Bld) [Mass/Vol] 13.3 g/dL Normal 12.0-16.0 [facility] Comment on above: Performed By: #### B MP, FT4, TIBCFE, TSH, B12, TOI #### [facility] [address] [place] [address] 06861 IG # 0.0 10*3/uL Normal 0.0-0.1 [facility] Comment on above: Performed By: #### B MP, FT4, TIBCFE, TSH, B12, TOI #### [facility] [address] [place] [address] IG % 0.2 % Normal 0.0-1.0 [facility] Comment on above: Performed By: #### B MP, FT4, TIBCFE, TSH, B12, TOI #### [facility] [address] [place] [address] 19913 Lymphocytes (Bld) [#/Vol] 1.5 10*3/uL Normal 1.3-4.4 [facility] Comment on above: Performed By: #### B MP, FT4, TIBCFE, TSH, B12, TOI #### [facility] [address] [place] [address] 04949 Lymphocytes/100 WBC (Bld) 12.0 % Low 27.0-41.0 [facility] Comment on above: Performed By: #### B MP, FT4, TIBCFE, TSH, B12, TOI #### [facility] [address] [place] [address] 14571 MCH (RBC) [Entitic mass] 32.4 g/dl Low 33.0-37.0 [facility] Comment on above: Performed By: #### B MP, FT4, TIBCFE, TSH, B12, TOI #### [facility] [address] [place] [address] 30062 MCV (RBC) [Entitic vol] 98.8 fL Normal 81.0-99.0 [facility] Comment on above: Performed By: #### B MP, FT4, TIBCFE, TSH, B12, TOI #### [facility] [address] [place] [address] 16142 MEAN CORPUSCULAR HGB 32.0 pg High 27.0-31.0 [facility] Comment on above: Performed By: #### B MP, FT4, TIBCFE, TSH, B12, TOI #### [facility] [address] [place] [address] 61156 Monocytes (Bld) [#/Vol] 1.0 10*3/uL Normal 0.1-1.0 [facility] Comment on above: Performed By: #### B MP, FT4, TIBCFE, TSH, B12, TOI #### [facility] [address] [place] [address] 22543 Monocytes/100 WBC (Bld) 7.9 % Normal 3.0-9.0 [facility] Comment on above: Performed By: #### B MP, FT4, TIBCFE, TSH, B12, TOI #### [facility] [address] [place] [address] 52666 Neutrophils (Bld) [#/Vol] 10.1 10*3/uL High 2.3-7.9 [facility] Comment on above: Performed By: #### B MP, FT4, TIBCFE, TSH, B12, TOI #### [facility] [address] [place] [address] 11001 Neutrophils/100 WBC (Bld) 79.0 % High 47.0-73.0 [facility] Comment on above: Performed By: #### B MP, FT4, TIBCFE, TSH, B12, TOI #### [facility] [address] [place] [address] 06949 NUCLEATED RED BLOOD CELL 0.0 % Normal 0.0-0.0 [facility] Comment on above: Performed By: #### B MP, FT4, TIBCFE, TSH, B12, TOI #### [facility] [address] [place] [address] 89171 NUCLEATED RED BLOOD CELL 0.0 10*3/uL Normal 0.0-0.0 [facility] Comment on above: Performed By: #### B MP, FT4, TIBCFE, TSH, B12, TOI #### [facility] [address] [place] [address] 32714 PLATELET COUNT AUTOMATED 197 10*3/uL Normal 130-400 [facility] Comment on above: Performed By: #### B MP, FT4, TIBCFE, TSH, B12, TOI #### [facility] [address] [place] [address] Platelet mean volume (Bld) [Entitic vol] 9.6 fL Normal 9.6-12.3 [facility] Comment on above: Performed By: #### B MP, FT4, TIBCFE, TSH, B12, TOI #### [facility] [address] [place] [address] RBC (Bld) [#/Vol] 4.15 10*6/uL Normal 4.10-5.10 [facility] Comment on above: Performed By: #### B MP, FT4, TIBCFE, TSH, B12, TOI #### [facility] [address] [place] [address] RED CELL DISTRI WIDTH 13.5 % Normal 0-14.5 [facility] Comment on above: Performed By: #### B MP, FT4, TIBCFE, TSH, B12, TOI #### [facility] [address] [place] [address] WBC (Bld) [#/Vol] 12.8 10*3/uL High 4.8-10.8 [facility] Comment on above: Performed By: #### B MP, FT4, TIBCFE, TSH, B12, TOI #### [facility] [address] [place] [address] CHEST (2 V)on 12-21-2018 [id number] Name: ROSA LANDERS Phys: MAGANA SOELDAD VILLALBA : 1940 Age: 78 Sex: F Acct: [id number] Loc: 502 1 Exam Date: 12/21/2018 Status: ADM IN Radiology No: [id number] Unit No: [id number] EXAM# TYPE/EXAM RESULT [id number] CRRAD/CHEST (2 V) SEE REPORT INDICATION: Chronic [...] MD Technologist: ORLANDO LAGOS Transcribed Date/Time: 12/21/2018 (5608) Seed Technician: SRI Printed Date/Time: 12/21/2018 (4319) PAGE 1 Signed Report Normal [facility] COMPREHENSIVE METABOLIC PANE Kamaljit 12-21-2018 Albumin [Mass/Vol] 3.9 gm/dl Normal 3.1-4.5 [facility] Comment on above: Performed By: #### B MP, FT4, TIBCFE, TSH, B12, TOI #### [facility] [address] [place] [address] ALP [Catalytic activity/Vol] 107 U/L Normal 45-117 [facility] Comment on above: Performed By: #### B MP, FT4, TIBCFE, TSH, B12, TOI #### [facility] [address] [place] [address] ALT [Catalytic activity/Vol] 27 U/L Normal 12-78 [facility] Comment on above: Performed By: #### B MP, FT4, TIBCFE, TSH, B12, TOI #### [facility] [address] [place] [address] Bilirubin [Mass/Vol] 1.0 mg/dL Normal 0.2-1.0 [facility] Comment on above: Performed By: #### B MP, FT4, TIBCFE, TSH, B12, TOI #### [facility] [address] [place] [address] Calcium [Mass/Vol] 9.2 mg/dL Normal 8.5-10.5 [facility] Comment on above: Performed By: #### B MP, FT4, TIBCFE, TSH, B12, TOI #### [facility] [address] [place] [address] Chloride [Moles/Vol] 100 mmol/L Normal 98-107 [facility] Comment on above: Performed By: #### B MP, FT4, TIBCFE, TSH, B12, TOI #### [facility] [address] [place] [address] CO2 [Moles/Vol] 27 mmol/L Normal 21-32 [facility] Comment on above: Performed By: #### B MP, FT4, TIBCFE, TSH, B12, TOI #### [facility] [address] [place] [address] Creatinine [Mass/Vol] 1.07 mg/dL High 0.55-1.02 [facility] Comment on above: Performed By: #### B MP, FT4, TIBCFE, TSH, B12, TOI #### [facility] [address] [place] [address] EST GLOM FILT > 60 Normal [facility] Comment on above: Result Comment: Result Units: [...] MP, FT4, TIBCFE, TSH, B12, TOI #### [facility] [address] [place] [address] ESTIMATED GLOM FILT RATE 50 mL/min/ Low [facility] Comment on above: Performed By: #### B MP, FT4, TIBCFE, TSH, B12, TOI #### [facility] [address] [place] [address] Glucose [Mass/Vol] 119 mg/dL High 65-99 [facility] Comment on above: Performed By: #### B MP, FT4, TIBCFE, TSH, B12, TOI #### [facility] [address] [place] [address] Potassium [Moles/Vol] 3.9 mmol/L Normal 3.5-5.1 [facility] Comment on above: Performed By: #### B MP, FT4, TIBCFE, TSH, B12, TOI #### [facility] [address] [place] [address] Protein [Mass/Vol] 8.7 g/dL High 6.4-8.2 [facility] Comment on above: Performed By: #### B MP, FT4, TIBCFE, TSH, B12, TOI #### [facility] [address] [place] [address] SGOT/AST 25 IU/L Normal 3-35 [facility] Comment on above: Performed By: #### B MP, FT4, TIBCFE, TSH, B12, TOI #### [facility] [address] [place] [address] Sodium [Moles/Vol] 134 mmol/L Low 136-145 [facility] Comment on above: Performed By: #### B MP, FT4, TIBCFE, TSH, B12, TOI #### [facility] [address] [place] [address] Urea nitrogen [Mass/Vol] 16 mg/dL Normal 7-24 [facility] Comment on above: Performed By: #### B MP, FT4, TIBCFE, TSH, B12, TOI #### [facility] [address] [place] [address] ELECTROCARDIOGRAM REPORTon 1 [place], [place] ELECTROCARDIOGRAM REPORT NAME: ROSA LANDERS UNIT #: [id number] ROOM: [facility] DOCTOR: RIC DRAFT REPORT BIRTHDATE: [birth year] [facility] Test Date: 2018-12-21 Test Time: 14:33:41 Pat Name: ROSA LANDERS Department: Room: [facility] 1 Gender: F Clam Treader: : 1940 Requested By: SOLEDAD MAGANA Order Number: [id number] Reading MD: Alexandrea Galicia MD Measurements Intervals [place] Rate: 76 P: 90 [place]: 184 QRS: 84 QRSD: 81 T: 63 QT: 426 QTc: 480 Interpretive Statements Sinus rhythm Borderline right axis deviation Baseline wander in lead(s) II No previous ECG available for comparison Electronically Signed On 12-22-2018 15:47:37 PDT by Alexandrea Galicia MD CM:EKGRPT:ELECTROCARDI OGRAM REPORT [id number] SOLEDAD MAGANA DO EPIPHANY DRAFT REPORT SOLEDAD MAGANA DO Normal [facility] LACTIC ACID BASELINEon 12-21 LACTIC ACID BASELINE 1.5 mmol/L Normal 0.4-2.0 [facility] Comment on above: Performed By: #### B MP, FT4, TIBCFE, TSH, B12, TOI #### [facility] [address] [place] [address] RAPID INFLUENZA A/Bon 2018 RAPID INFLUENZA A/B Negative Normal [facility] Comment on above: Performed By: #### B MP, FT4, TIBCFE, TSH, B12, TOI #### [facility] [address] [place] [address] TROPONIN Ion 12-21-2018 Troponin I.cardiac [Mass/Vol] ng/mL Normal <0.045 [facility] Comment on above: Result Comment: myocardial injury. Clinical correlation required. >0.045 Troponin I interpretation: Troponin I present. Diagnostic possibilities include, but are not limited to, unstable angina, micro myocardial injury, early myocardial injury, cardiomyopathy or myocardial infarct. Clinical correlation required. Troponin I testing performed on a Siemens Dimension [place] analyzer which has a coefficient varient of <10 percent at the 99th percentile as recommended by 2014 AHA NSTE-ACS guidelines and the third universal definition of [place]. The 2012 Third [place] Definition of [place] defines a positive troponin as an elevation [...] MP, FT4, TIBCFE, TSH, B12, TOI #### [facility] [address] [place] [address] HIP LEFT (2-3V)on 12-01-2018 [id number] Name: ROSA LANDERS Phys: KATHRYN RUSSELL MD : 1940 Age: 78 Sex: F Acct: [id number] Loc: LAB Exam Date: 11/29/2018 Status: REG CLI Radiology No: [id number] Unit No: [id number] EXAM# TYPE/EXAM RESULT [id number] CRRAD/HIP LEFT (2-3V) SEE REPORT INDICATION: Left [...] MD Technologist: ROSELINE PEGUERO Transcribed Date/Time: 12/01/2018 (7783) Seed Technician: SRI Printed Date/Time: 12/01/2018 (3763) PAGE 1 Signed Report Normal [facility] HIP RIGHT (2-3V)on 9 [id number] Name: ROSA LANDERS Phys: KATHRYN RUSSELL MD : 1940 Age: 78 Sex: F Acct: [id number] Loc: LAB Exam Date: 11/29/2018 Status: REG CLI Radiology No: [id number] Unit No: [id number] EXAM# TYPE/EXAM RESULT [id number] CRRAD/HIP RIGHT (2-3V) SEE REPORT INDICATION: Bilateral [...] : 1940 Age: 78 Sex: F Acct: [id number] Loc: LAB Exam Date: 11/29/2018 Status: REG CLI Radiology No: [id number] Unit No: [id number] EXAM# TYPE/EXAM RESULT [id number] CRRAD/HIP RIGHT (2-3V) SEE REPORT Signed by Meryl Alfredo MD REPORT SIGNED IN OTHER VENDOR SYSTEM 12/01/2018 Reported By: MERYL ALFREDO CC: JERRY GIBSON MD Technologist: ROSELINE PEGUERO Transcribed Date/Time: 12/01/2018 (3489) Seed Technician: SRI Printed Date/Time: 12/01/2018 (1333) PAGE 2 Signed Report Normal [facility] US RENALon 11-30-2018 USREN Name: ROSA LANDERS Phys: DREW ANTHONY,KATHRYN : 1940 Age: 78 Sex: F Acct: [id number] Loc: LAB Exam Date: 11/29/2018 Status: REG CLI Radiology No: [id number] Unit No: [id number] EXAM# TYPE/EXAM RESULT [id number] US/US RENAL SEE REPORT INDICATION: CKD TECHNIQUE: [...] Technologist: KRISTINE BERNARD Transcribed Date/Time: 11/30/2018 (833) Seed Technician: SRI Printed Date/Time: 11/30/2018 (833) PAGE 1 Signed Report Normal [facility] PHOSPHOROUSon 11-29-2018 PHOSPHOROUS 3.3 mg/dL Normal 2.5-4.9 [facility] Comment on above: Performed By: #### P HOS, PTH, VITD #### [facility] [address] [place] [address] PTH INTACTon 11-29-2018 PTH INTACT 41.5 pg/mL Normal 18.5-88.0 [facility] Comment on above: Performed By: #### P HOS, PTH, VITD #### [facility] [address] [place] [address] VITAMIN D, 25-HYDROXYon VITAMIN D, 25-HYDROXY 13.5 ng/mL Low 30-100 [facility] Comment on above: Result Comment: < 20 ng/mL - Vitamin D Deficiency 20 - 30 ng/mL - Vitamin D Insufficiency 30 - 100 ng/mL - Vitamin D sufficiency > 100 ng/mL - Vitamin D Toxicity Performed By: #### P HOS, PTH, VITD #### [facility] [address] [place] [address] HIPS BILATERAL (2V)on 2018 [id number] Name: ROSA LANDERS Phys: JERRY GIBSON MD : 1940 Age: 78 Sex: F Acct: [id number] Loc: LAB Exam Date: 10/20/2018 Status: REG CLI Radiology No: [id number] Unit No: [id number] EXAM# TYPE/EXAM RESULT [id number] CRRAD/HIPS BILATERAL (2V) SEE REPORT INDICATION: Bilateral [...] : 1940 Age: 78 Sex: F Acct: [id number] Loc: LAB Exam Date: 10/20/2018 Status: REG CLI Radiology No: [id number] Unit No: [id number] EXAM# TYPE/EXAM RESULT [id number] CRRAD/HIPS BILATERAL (2V) SEE REPORT Signed by Nael Valencia M.D. REPORT SIGNED IN OTHER VENDOR SYSTEM 10/21/2018 Reported By: NAEL VALENCIA M.D. CC: JERRY GIBSON MD Technologist: ORLANDO LAGOS Transcribed Date/Time: 10/21/2018 (5749) Seed Technician: SRI Printed Date/Time: 10/21/2018 (8945) PAGE 2 Signed Report Normal [facility] BASIC METABOLIC PANELon 09-23 Calcium [Mass/Vol] 8.9 mg/dL Normal 8.5-10.5 [facility] Comment on above: Performed By: #### B MP, FT4, TIBCFE, TSH, B12, TOI #### [facility] [address] [place] [address] Chloride [Moles/Vol] 103 mmol/L Normal 98-107 [facility] Comment on above: Performed By: #### B MP, FT4, TIBCFE, TSH, B12, TOI #### [facility] [address] [place] [address] CO2 [Moles/Vol] 30 mmol/L Normal 21-32 [facility] Comment on above: Performed By: #### B MP, FT4, TIBCFE, TSH, B12, TOI #### [facility] [address] [place] [address] Creatinine [Mass/Vol] 1.12 mg/dL High 0.55-1.02 [facility] Comment on above: Performed By: #### B MP, FT4, TIBCFE, TSH, B12, TOI #### [facility] [address] [place] [address] EST GLOM FILT 57 ml/min Low [facility] Comment on above: Result Comment: Result Units: [...] MP, FT4, TIBCFE, TSH, B12, TOI #### [facility] [address] [place] [address] ESTIMATED GLOM FILT RATE 47 mL/min/ Low [facility] Comment on above: Performed By: #### B MP, FT4, TIBCFE, TSH, B12, TOI #### [facility] [address] [place] [address] Glucose [Mass/Vol] 103 mg/dL High 65-99 [facility] Comment on above: Performed By: #### B MP, FT4, TIBCFE, TSH, B12, TOI #### [facility] [address] [place] [address] Potassium [Moles/Vol] 4.0 mmol/L Normal 3.5-5.1 [facility] Comment on above: Performed By: #### B MP, FT4, TIBCFE, TSH, B12, TOI #### [facility] [address] [place] [address] Sodium [Moles/Vol] 136 mmol/L Normal 136-145 [facility] Comment on above: Performed By: #### B MP, FT4, TIBCFE, TSH, B12, TOI #### [facility] [address] [place] [address] Urea nitrogen [Mass/Vol] 16 mg/dL Normal 7-24 [facility] Comment on above: Performed By: #### B MP, FT4, TIBCFE, TSH, B12, TOI #### [facility] [address] [place] [address] FERRITINon 10-20-2018 Ferritin [Mass/Vol] 90.6 ng/mL Normal 10.0-291.0 [facility] Comment on above: Performed By: #### B MP, FT4, TIBCFE, TSH, B12, TOI #### [facility] [address] [place] [address] FREE T4on 10-20-2018 Free T4 [Mass/Vol] 1.19 ng/dL Normal 0.76-1.46 [facility] Comment on above: Performed By: #### B MP, FT4, TIBCFE, TSH, B12, TOI #### [facility] [address] [place] [address] THYROID STIM HORMONE (HS)on 10-20-2018 THYROID STIM HORMONE (HS) 4.870 uIU/ml High 0.358-4.75 [facility] Comment on above: Performed By: #### B MP, FT4, TIBCFE, TSH, B12, TOI #### [facility] [address] [place] [address] TOTAL IRON BINDING CAPACITYo n 10-20-2018 Iron [Mass/Vol] 68 ug/dL Normal 50-170 [facility] Comment on above: Performed By: #### B MP, FT4, TIBCFE, TSH, B12, TOI #### [facility] [address] [place] [address] IRON SATURATION 22 % Normal [facility] Comment on above: Performed By: #### B MP, FT4, TIBCFE, TSH, B12, TOI #### [facility] [address] [place] [address] TOTAL IRON BINDING CAPACITY 308 ug/dl Normal 250-450 [facility] Comment on above: Performed By: #### B MP, FT4, TIBCFE, TSH, B12, TOI #### [facility] [address] [place] [address] UIBC 240 ug/dL Normal 110-365 [facility] Comment on above: Performed By: #### B MP, FT4, TIBCFE, TSH, B12, TOI #### [facility] [address] [place] [address] VITAMIN B12on 10-20-2018 Cobalamin (Vitamin B12) [Mass/Vol] 356 pg/mL Normal 247-911 [facility] Comment on above: Result Comment: 465 - 145 pg/mL - Normal, Vitamin B12 Sufficiency Performed By: #### B MP, FT4, TIBCFE, TSH, B12, TOI #### [facility] [address] [place] [address] Vital Signs Date Time Vital Sign Value Performing Clinician Facility 10-11-2024 09:26-0400 Body temperature 97.5 [degF] Dr. Edy Salomon DO Work Phone: [facility] 10-11-2024 09:26-0400 Diastolic blood pressure 51 mm[Hg] Dr. Edy Salomon DO Work Phone: [facility] 10-11-2024 09:26-0400 Heart rate 62 /min Dr. Edy Salomon DO Work Phone: [facility] 10-11-2024 09:26-0400 Respiratory rate 18 /min Dr. Edy Salomon DO Work Phone: [facility] 10-11-2024 09:26-0400 Systolic blood pressure 124 mm[Hg] Dr. Edy Salomon DO Work Phone: [facility] 02-28-2023 11:25-0500 Heart rate 79 /min ROBERT SANDS MD [facility] 02-28-2023 11:04-0500 Heart rate 79 /min ROBERT SANDS MD [facility] 02-28-2023 11:04-0500 Respiratory rate 20 /min ROBERT SANDS MD [facility] 02-28-2023 07:58-0500 Heart rate 102 /min ROBERT SANDS MD [facility] 02-28-2023 07:28-0500 Body temperature 98.6 [degF] ROBERT SANDS MD [facility] 02-28-2023 07:28-0500 Diastolic Blood Pressure Non-Invasive 56 mm[Hg] ROBERT SANDS MD [facility] 02-28-2023 07:28-0500 Heart rate 99 /min ROBERT SANDS MD [facility] 02-28-2023 07:28-0500 Mean blood pressure 77 mm[Hg] ROBERT SANDS MD [facility] 02-28-2023 07:28-0500 Reason For Taking VItal Signs ROBERT SANDS MD [facility] 02-28-2023 07:28-0500 Respiratory rate 16 /min ROBERT SANDS MD [facility] 02-28-2023 07:28-0500 Systolic Blood Pressure Non-Invasive 130 mm[Hg] ROBERT SANDS MD [facility] 02-28-2023 07:11-0500 Heart rate 71 /min ROBERT SANDS MD [facility] 02-28-2023 07:11-0500 Respiratory rate 16 /min ROBERT SANDS MD [facility] 02-28-2023 03:37-0500 Body temperature 99.5 [degF] ROBERT SANDS MD [facility] 02-28-2023 03:37-0500 Diastolic Blood Pressure Non-Invasive 70 mm[Hg] ROBERT SANDS MD [facility] 02-28-2023 03:37-0500 Mean blood pressure 91 mm[Hg] ROBERT SANDS MD [facility] 02-28-2023 03:37-0500 Reason For Taking VItal Signs ROBERT SANDS MD [facility] 02-28-2023 03:37-0500 Systolic Blood Pressure Non-Invasive 156 mm[Hg] ROBERT SANDS MD [facility] 02-27-2023 22:25-0500 Body temperature 98.42 [degF] ROBERT SANDS MD [facility] 02-27-2023 22:25-0500 Diastolic Blood Pressure Non-Invasive 60 mm[Hg] ROBERT SANDS MD [facility] 02-27-2023 22:25-0500 Mean blood pressure 74 mm[Hg] ROBERT SANDS MD [facility] 02-27-2023 22:25-0500 Systolic Blood Pressure Non-Invasive 118 mm[Hg] ROBERT SANDS MD [facility] 02-27-2023 19:08-0500 Heart rate 79 /min ROBERT SANDS MD [facility] 02-27-2023 18:39-0500 Reason For Taking VItal Signs ROBERT SANDS MD [facility] 02-27-2023 10:53-0500 Blood Pressure Cuff Size ROBERT SANDS MD [facility] 02-27-2023 10:53-0500 Blood Pressure Location ROBERT SANDS MD [facility] 02-27-2023 10:53-0500 Blood Pressure Method ROBERT SANDS MD [facility] 02-26-2023 12:30-0500 Diastolic blood pressure 83 mm[Hg] ROBERT SANDS MD [facility] 02-26-2023 12:30-0500 Mean blood pressure 115 mm[Hg] ROBERT SANDS MD [facility] 02-26-2023 12:30-0500 Systolic blood pressure 163 mm[Hg] ROBERT SANDS MD [facility] 02-26-2023 12:00-0500 Diastolic blood pressure 76 mm[Hg] ROBERT SANDS MD [facility] 02-26-2023 12:00-0500 Mean blood pressure 109 mm[Hg] ROBERT SANDS MD [facility] 02-26-2023 12:00-0500 Systolic blood pressure 162 mm[Hg] ROBERT SANDS MD [facility] 02-26-2023 11:45-0500 Diastolic blood pressure 69 mm[Hg] ROBERT SANDS MD [facility] 02-26-2023 11:45-0500 Mean blood pressure 105 mm[Hg] ROBERT SANDS MD [facility] 02-26-2023 11:45-0500 Systolic blood pressure 158 mm[Hg] ROBERT SANDS MD [facility] 02-24-2023 23:00-0500 Body temperature 97.52 [degF] ROBERT SANDS MD [facility] 02-24-2023 22:04-0500 Body temperature 97.88 [degF] ROBERT SANDS MD [facility] 02-24-2023 15:50-0500 Respiratory Rate - Anes 5 br/min ROBERT SANDS MD [facility] 02-24-2023 15:45-0500 Respiratory Rate - Anes 18 br/min ROBERT SANDS MD [facility] 02-24-2023 15:40-0500 Respiratory Rate - Anes 19 br/min ROBERT SANDS MD [facility] 02-24-2023 15:15-0500 Body temperature 96.57 [degF] ROBERT SANDS MD [facility] 02-24-2023 15:10-0500 Body temperature 96.66 [degF] ROBERT SANDS MD [facility] 02-24-2023 15:05-0500 Body temperature 96.76 [degF] ROBERT SANDS MD [facility] 02-24-2023 10:16-0500 Body weight 23.07 kg/m2 ROBERT SANDS MD [facility] 02-24-2023 10:05-0500 Body height 162.6 cm ROBERT SANDS MD [facility] 02-24-2023 10:05-0500 Body weight 61 kg ROBERT SANDS MD [facility] 02-24-2023 10:05-0500 Body weight 23.07 kg/m2 ROBERT SANDS MD [facility] 02-22-2023 12:49-0500 Blood Pressure Cuff Size ROBERT SANDS MD [facility] 02-22-2023 12:49-0500 Blood Pressure Location ROBERT SANDS MD [facility] 02-22-2023 12:49-0500 Blood Pressure Method ROBERT SANDS MD [facility] 02-22-2023 12:49-0500 Body height 162.6 cm ROBERT SANDS MD [facility] 02-22-2023 12:49-0500 Body temperature 98.06 [degF] ROBERT SANDS MD [facility] 02-22-2023 12:49-0500 Body weight 63.9 kg ROBERT SANDS MD [facility] 02-22-2023 12:49-0500 Diastolic Blood Pressure Non-Invasive 69 mm[Hg] ROBERT SANDS MD [facility] 02-22-2023 12:49-0500 Heart rate 55 /min ROBERT SANDS MD [facility] 02-22-2023 12:49-0500 Systolic Blood Pressure Non-Invasive 149 mm[Hg] ROBERT SANDS MD [facility] 12-22-2018 02:32-0400 Body temperature 98.8 [degF] [facility] Comment on above: Order Comment: ROOM AIR? NFIO2 % and/or LITER FLOW: 5LTEMP: 98.8IS THE PATIENT BEING MECHANICALLY VENTILATED? N Performed By: #### B MP, FT4, TIBCFE, TSH, B12, TOI #### [facility] [address] [place] [address] Encounters Encounter Date Encounter Type Care Provider Facility Start: 12-11-2024 End: 12-11-[address] EDY SALOMON DO Facility:[facility] Start: 12-11-2024 End: 12-11-[address] LONNIE JAVIER MD [facility] Start: 10-30-2024 Encounter for other preprocedural examination Camron Shahla [facility] Start: 10-29-2024 ambulatory Edy Salomon Facility:[facility] Start: 10-26-2024 End: 10-26-2024 ambulatory ROBERT SANDS MD Facility:[facility] Start: 10-26-2024 End: 10-26-2024 Patient encounter procedure ROBERT SANDS MD [facility] Start: 10-23-2024 ambulatory IGGY PERLA [facility] acility:[facility] Start: 10-11-2024 ambulatory Edy Salomon Facility:[facility] Start: 10-11-2024 Non-patient / Non-visit Dr. Yareli Gunderson MD -[facility] Work Phone: Start: 10-11-2024 End: 10-18-[address] nSow Gunderson [facility] Work Phone: Start: 10-11-2024 End: 10-18-[address] Edy Salomon DO Work Phone: [facility] Start: 09-29-2024 End: 10-20-[address] EDY SALOMON DO Facility:[facility] Start: 09-25-2024 End: 09-25-[address] EDY SALOMON DO Facility:[facility] Start: 09-25-2024 End: 09-25-[address] EDY SALOMON DO [facility] Start: 09-13-2024 End: 09-13-[address] EDY SALOMON DO Facility:[facility] Start: 09-13-2024 End: 09-13-[address] EDY SALOMON DO [facility] Start: 09-04-2024 End: 09-04-2024 Emergency department patient visit IZA SHAISTA DO [facility] Start: 09-04-2024 End: 09-04-[address] EDY SALOMON DO Facility:[facility] Start: 09-04-2024 End: 09-04-[address] EDY SALOMON DO [facility] Start: 08-29-2024 End: 08-29-[address] EDY SALOMON DO Facility:[facility] Start: 08-29-2024 End: 08-29-[address] EDY SALOMON DO [facility] Start: 02-13-2024 End: 02-13-[address] EDY SLAOMON DO Facility:[facility] Start: 02-13-2024 End: 02-13-[address] EDY SALOMON DO [facility] Start: 12-23-2023 End: 12-23-[address] EDY SALOMON DO Facility:[facility] Start: 12-23-2023 End: 12-23-[address] EDY SALOMON DO [facility] Start: 09-13-2023 End: 09-13-2023 ambulatory IGGY DUNCAN [facility] Facility:[facility] Start: 09-13-2023 End: 09-13-2023 Patient encounter procedure IGGY [facility]AN [facility] Start: 06-02-2023 ambulatory STEVEN ARREDONDO [facility] Facility:[facility] Start: 06-02-2023 End: 06-06-2023 Outreach Lab STEVEN [facility]REDONDO [facility] Start: 04-15-2023 End: 04-15-[address] EDY SALOMON DO Facility:[facility] Start: 04-15-2023 End: 04-15-[address] EDY SALOMON DO [facility] Start: 03-02-2023 End: 04-13-[address] EDY SALOMON DO Facility:[facility] Start: 02-24-2023 End: 02-28-2023 Evaluation and management of inpatient ROBERT SANDS MD [facility] Start: 02-22-2023 End: 02-22-2023 Admission to establishment ROBERT SANDS MD [facility] Start: 02-22-2023 End: 02-22-2023 ambulatory ROBERT SANDS MD Facility:[facility] Start: 01-18-2023 End: 01-18-2023 ambulatory IGGY [facility] Facility:[facility] Start: 01-18-2023 End: 01-18-2023 Patient encounter procedure IGGY [facility] Start: 08-26-2022 End: 08-26-2022 ambulatory [facility] Work Phone: Start: 08-26-2022 End: 08-26-2022 Patient encounter procedure [facility], [facility] Work Phone: Start: 08-25-2022 End: 08-25-2022 Patient encounter procedure ROBERT SANDS MD [facility] Start: 03-16-2022 End: 03-16-[address] EDY SALOMON DO [facility] Start: 10-07-2021 End: 10-07-[address] EDY SALOMON DO [facility] Start: 06-26-2021 End: 06-26-2021 Patient encounter procedure ROBERT SANDS MD [facility] Start: 01-22-2021 End: 01-26-[address] EDY SALOMON DO [facility] Procedures Date Procedure Procedure Detail Performing Clinician [...] Prefilled Syringe ] DR EDY SALOMON DO [facility] 03-16-2023 influenza, high dose seasonal, preservative-free; Translations: [Fluad Quadrivalent PF ] DR EDY SALOMON DO [facility] 02-26-2021 COVID-19, mRNA, LNP- S, PF, 100 mcg or 50 mcg dose; Translations: [Moderna COVID-19 Vaccine] ROBERT SANDS MD [facility] 02-26-2021 influenza, high dose seasonal, preservative-free; Translations: [Fluad Quadrivalent PF ] ROBERT SANDS MD [facility] 06-30-2020 SARS-CoV-2 (COVID-19 ) mRNA-[address] EDY SALOMON DO [facility] Comment on above: Result Comment: 2022: [id number] 06-02-2020 SARS-CoV-2 (COVID-19 ) mRNA-[address] EDY SALOMON DO [facility] Comment on above: Result Comment: 2020: [id number] 02-01-2019 tetanus toxoid, redu kelsey diphtheria toxoid, and acellular pertussis vaccine, adsorbed; Translations: [Boostrix (Tdap)] DR EDY SALOMON DO [facility] 01-10-2019 pneumococcal conjuga te vaccine, [address] EDY SALOMON DO [facility] 11-21-2018 influenza virus vacc ine, unspecified formulation DR EDY SALOMON DO [facility] 11-21-2018 pneumococcal conjuga te vaccine, [address] EDY SALOMON DO [facility] 11-20-2018 influenza virus vacc ine, unspecified formulation DR EDY SALOMON DO [facility] 11-20-2018 pneumococcal conjuga te vaccine, [address] EDY SALOMON DO [facility] 10-31-2012 pneumococcal polysaccharide vaccine, [address] EDY SALOMON DO [facility] 12-06-2007 influenza virus vacc ine, unspecified formulation DR EDY SALOMON DO [facility] Payers Date Payer Category Payer Self-pay [id number] 08-29-2024 Private Health Insurance [id number] 04-06-2023 [employer] ( and others) [id number] 07-22-2022 [employer] ( and others) [id number] 07-22-2022 Medicare [id number] 07-22-2022 Medicare [id number] 06-11-2021 [employer] ( and others) [id number] 1940 Unknown [id number] 2.16.840.1.216268.3.579.2. 1940 Unknown [id number] 2.16.840.1.240454.3.579.2. 1940 Unknown [id number] 2.16.840.1.894420.3.579.2. 1940 Unknown [id number] 2.16.840.1.059933.3.579.2. 1941 Unknown [id number] 2.16.840.1.457573.3.579.2. 1941 Unknown [id number] 2.16.840.1.052412.3.579.2. 1941 Unknown [id number] 2.16.840.1.036108.3.579.2. 1941 Unknown [id number] 2.16.840.1.933671.3.579.2. 1941 Unknown [id number] 2.16.840.1.284265.3.579.2. 1941 Unknown [id number] 2.16.840.1.613621.3.579.2 1941 Unknown [id number] 2.16.840.1.656640.3.579.2. 1941 Unknown [id number] 2.16.840.1.253632.3.579.2.627 1940 Unknown [id number] 2.16.840.1.633149.3.579.2.627 1941 Unknown [id number] 2.16.840.1.808509.3.579.2.627 1941 Unknown [id number] 2.16.840.1.569668.3.579.2.627 1940 Unknown [id number] 2.16.840.1.127968.3.579.2.627 Unknown [id number] 2.16.840.1.999523.3.579.2.462 Unknown [id number] 2.16.840.1.953062.3.579.2.462 Unknown [id number] 2.16.840.1.089311.3.579.2.462 Social History Date Type Detail Facility Tobacco Nicotine Use: Va ping Product in Last 90 Days. Type: Electronic Cigarettes (Vaping). [facility] Start: 1940 Sex Assigned At Female A [facility] Tobacco smoking status [facility] Start: 02-19-2019 [facility] Start: 02-19-2019 None [facility] Start: 02-19-2019 With Family;- [facility] Start: 06-22-2019 Cigarettes [facility] Start: 02-22-2019 Sex Female (finding) [facility] Start: 10-11-2024 [facility] Functional Status Date Assessment Result Facility 02-28-2023 Functional Status Sequential Com pression Device bilateral knee high applied/on [facility] 02-28-2023 Functional Status Supervision [facility] 02-28-2023 Functional Status Door open, Non-Slip footwear, Room check performed [facility] 02-28-2023 Functional Status [facility] 02-27-2023 [...] 02-25-2023 Functional Status NPO Status Maintained A [facility] 02-25-2023 Functional Status [facility] 02-25-2023 Functional Status [facility] 02-25-2023 Functional Status [facility] 02-24-2023 Functional Status Patient Identified Iden tification band [facility] 02-24-2023 [facility] Functional Status Sensory Deficits None [facility] Mental Status Date Assessment Result Facility 02-28-2023 Mental Status Oriented x 4 [facility] 02-28-2023 Mental Status [facility] 02-27-2023 Mental Status [facility] 02-26-2023 Mental Status [facility] 02-26-2023 Mental Status [facility] Clinical Notes 01-18-2023 to 10-12-2024 Note Date & Type Note Facility 10-12-2024 History and physi wu note Note Date/Time October 12, 2024 5:50pm [facility] [place] [address] H&P Exam - Wound Care 10/11/24 1023 MR#: [id number] Acct: [id number] Name: ROSA LANDERS #:[id number] : 1940 84 From: Snow castellano MD [...] no open area identified. Feels well otherwise[facility] Medical History (Updated 10/12/24 @ 17:48 by [...] Date Recorded By Document 10/11/24 09:26 DS [id number] 10/11/24 09:31 DS 10/11/24 09:26 - Today's [...] -Alleviating Factors/Interventions None Communication Assessment Preferred language Greenlandic Able to Read Yes Able to Write [...] Perform Ambulation List Device(s) with Patient cane Culture/Moravian/Manager Mail Cultural/Moravian Needs that may affect No Treatment Plan Teaching: Wound Center *Welcome to the Wound Center -Person Taught Patient -Teaching Method Discussion -Response to teaching Verbalize Understanding WC - Nurse 2 - General Ulcer CM Notes Start: 10/11/24 09:18 Freq: Status: Active Protocol: Activity Type Activity Date Activity User E-sign Co-sign Detail Recorded Client Recorded Date Recorded By Document 10/11/24 09:56 GM [id number] 10/11/24 09:58 GM 10/11/24 09:56 Pain Scale: 0-10 Numeric Is Patient Pain Free? Yes WC - Nurse 3 - General Ulcer D/C NN Start: 10/11/24 09:18 Freq: Status: Active Protocol: Activity Type Activity Date Activity User E-sign Co-sign Detail Recorded Client Recorded Date Recorded By Document 10/11/24 10:01 GM [id number] 10/11/24 10:01 10/11/24 10:01 Is Patient Pain Free? Yes WC - Visit Discharge Discharge Condition Stable Ambulatory Status Ambulatory,Cane Transportation Private Auto Charges/Coding Visit Charges Office Visits / Consults: 49399 OV L3 New 30min Assessment/Plan Assessment/Plan (1) [...] wound center. This note was generated with [employer] dictation software. It may contain incorrectwords, spelling, and punctuation that were not noted in checking the note beforesigning. 10/12/24 1750 <Electronically signed by Snow Gunderson MD> Cosigner Signature (if applicable): CC: ~ Signed [facility] Work Phone: 1(589) 936-318508-22-2025 History and physical note [facility] [address] [facility] [place] [address] H&P Exam - Wound Care 10/11/24 1023 MR#: [id number] Acct: [id number] Name: ROSA LANDERS Rep #:[id number] : 1940 84 From: Snow castellano MD [...] presentation, no open area identified. [place] otherwise[facility] Medical History (Updated 10/12/24 @ 17:48 by [...] Date Recorded By Document 10/11/24 09:26 DS [id number] 10/11/24 09:31 DS 10/11/24 09:26 - Today's [...] -Alleviating Factors/Interventions None Communication Assessment Preferred language Greenlandic Able to Read Yes Able to Write [...] Perform Ambulation List Device(s) with Patient cane Culture/Moravian/Manager Mail Cultural/Moravian Needs that may affect No Treatment Plan Teaching: Wound Center *Welcome to the Wound Center -Person Taught Patient -Teaching Method Discussion -Response to teaching Verbalize Understanding WC - Nurse 2 - General Ulcer CM Notes Start: 10/11/24 09:18 Freq: Status: Active Protocol: Activity Type Activity Date Activity User E-sign Co-sign Detail Recorded Client Recorded Date Recorded By Document 10/11/24 09:56 [id number] 10/11/24 09:58 10/11/24 09:56 Pain Scale: 0-10 Numeric Is Patient Pain Free? Yes WC - Nurse 3 - General Ulcer D/C NN Start: 10/11/24 09:18 Freq: Status: Active Protocol: Activity Type Activity Date Activity User E-sign Co-sign Detail Recorded Client Recorded Date Recorded By Document 10/11/24 10:01 [id number] 10/11/24 10:01 10/11/24 10:01 Is Patient Pain Free? Yes WC - Visit Discharge Discharge Condition Stable Ambulatory Status Ambulatory,Cane Transportation Private Auto Charges/Coding Visit Charges Office Visits / Consults: 65561 OV L3 New 30min Assessment/Plan Assessment/Plan (1) [...] wound center. This note was generated with [employer] software. It may contain incorrectwords, spelling, and punctuation that were not noted in checking the note beforesigning. 10/12/24 1750 Cosigner Signature (if applicable): CC: ~ Signed [facility]08-21-2025 Evaluation note* Diagnosis Onset Date Resolution Status Admit Date Dermatitis acute October 11, 2 025 8:57am History of decubitus ulcer acute October 11, 2024 8:57am [facility] Work Phone: 1(441) 690-810507-15-2025 Hospital Discharge instructions Patient Education 09/04/2024 18:42:37 [...] foods again, start with small amounts of tdzo-zh-fvqofn, low- fat foods. These include apple sauce, [...] increase stomach acid. Don't use aspirin or oiqs-pzp-xgisuii pain and fever medicines, if possible. This includes nonsteroidal anti-inflammatory drugs (NSAIDs). Lose excess weight. Finish eating at least 2 hours before you go to bed or lie down. Raise the head of your bed. [id number] [employer]. [address] [place] [address]. All rights reserved. This information is not intended as a substitute for professional medical care. Always follow yourhealthcare professional's instructions. Follow Up Care 09/04/2024 15:31:02 With:LONNIE JAVIER MD, Urology Service Address: [address] [place] [address] [address] [facility] [place] [address]- [phone] When:2-4 days With:EDY SALOMON DO Address: [address] [facility] [place] [address]- [phone] When:2-4 days [facility] 07-15-2025 Note Discharge Instructions Thank you for allowing [facility] to assist you with your healthcare needs. [...] MD, Urology Service When:Within 2-4 days Where:[address] [facility] [address] [place] [address] [phone] Follow Up with EDY SALOMON DO When:Within 2-4 days Where:[address] [facility] [place] [address]- [phone] Allergies aspirin BLEED Medications Please ask your [...] foods again, start with small amounts of ntwo-bl-qiwywe, low- fat foods. These include apple sauce, [...] increase stomach acid. Don't use aspirin or zbgy-jrp-gqtlhdo pain and fever medicines, if possible. This includes nonsteroidal anti-inflammatory drugs (NSAIDs). Lose excess weight. Finish eating at least 2 hours before you go to bed or lie down. Raise the head of your bed. [id number] [employer]. [address] [place] [address], [place] [address]. All rights reserved. This information is not intended as a substitute for professional medical care. Always follow yourhealthcare professional's instructions. Additional Information VACCINATE! IT SAVES LIVES! Members of the community who have not yet received the COVID-19 vaccine and would like to receive it can visit one of [facility] vaccine clinics. There are many vaccine clinic locations within the [facility]. For locations and available times, please visit www.gettheshot.coronavirus.[place].gov/. It is important to note that some COVID mobile vaccine clinics are held outdoors and may be canceled in rainy or stormy conditions. To learn more about pediatric vaccinations (ages 5-11), we invite you to visit the [employer] webpage. https://www.Stellar [employer]iess.org/pages/[email or web address]-Spvll-Rdzremmqwon-Bvumcrhcjj-Pgsqd-Luz stions.htmlTo learn more about the COVID-19 vaccine, we invite you to visit the CDC website for a list of frequently asked questions. https://www.cdc.gov/coronavirus/2019-ncov/vaccines/faq.html [facility] Patient Portal Access Instructions: Stay connected with your healthcare team and access your personal medical information anytime with the [facility] Patient Portal. If you would like a full copy of your medical records please contact the [facility] Medical Records Department Tuesday through Tuesday between 8a.m. and 4:30p.m. Please follow the directions below to access the portal: 1.Access the email account you provided upon registration to the [facility].2.Look for an invitation email from [facility].3.Open the email and access the invitation link: Accept Invitation to [facility]4.Fill in the required sagastume to create your account. Sign into www.[employer] with your username and password that you [...] you will allow to register on the [employer] Patient Portal for access to your information. You can also access the [employer] Patient Portal on the [employer] keisha. Simply click on Health Records under [place] and then click on the [employer] logo. HOW TO SAFELY DISPOSE OF PRESCRIPTION [...] Call your local pharmacy or go to [email or web address] to find one close to you.3.Make use of household items: Use cat litter or old coffee grounds to dispose medications if other options arenot available. Mix your drugs with these household products, seal them in an airtight container andthrow it into the garbage. Call [facility]: [phone] to be sure your drugs can be [...] aware that I should contact my doctor. 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: Date/Time: Relationship to Patient: Witness Name/Signature: Date/Time: [facility]07-15-2025 Note* Exam Date Time Procedure Performing Provider Status 09/04/24 5:[address] Abd/Pelvis w/ IV Contrast Only KULDIP VILLAGOMEZ MD; Auth (Verified) [id number] ORIGINAL EXAMINATION: CT OF THE ABDOMEN AND [...] Sign Date: 09/04/2024 6:20:02 PM Ordering Provider: [facility]07-15-2025 Note* Exam Date Time Procedure Performing Provider Status 09/04/24 3:[address] Thorax w/o Contrast ROSANA THORNE MD; Auth (Verified) [id number] ORIGINAL EXAMINATION: CT OF THE CHEST WITHOUT [...] Sign Date: 09/04/2024 4:13:45 PM Ordering Provider: [facility]07-15-2025 Note* Exam Date Time Procedure Performing Provider Status 09/04/24 3:06 PM MRI Brain w/ + w/o Contrast Trent FERRER MD; Auth (Verified) [id number] ORIGINAL EXAMINATION: MR Brain with intravenous contrast [...] Sign Date: 09/04/2024 3:44:14 PM Ordering Provider: [facility]12-23-2024 Note* Exam Date Time Procedure Performing Provider Status 02/13/24 1:43 PM BD Bone Density DEXA Axial Skeleton DUNIA PEARCE DO; Auth (Verified) [id number] ORIGINAL EXAMINATION: BONE DENSITOMETRY 02/13/2024 1:43 pm [...] 02/13/2024 2:32:49 PM Ordering Provider: EDY SALOMON [facility]04-15-2024 Note All parts labelled with patient name and [id number] Received in formalin labelled left lateral scalp Is a white smooth oval-shaped cystic cavity withno surfacing skin measuring 2.4 x 1.6 x 1.6 cm. Sectioning reveals white light brown cystic cut surfaces. RS-1 Meryl Martin Pathologists' Car Pre Cooler (ASCP) Dictated by [facility] 04-12-2024 Note All parts labelled with patient name and [id number] Received in formalin labelled left lateral scalp Is a white smooth oval-shaped cystic cavity withno surfacing skin measuring 2.4 x 1.6 x 1.6 cm. Sectioning reveals white light brown cystic cut surfaces. RS-1 Meryl Martin Pathologists' Car Pre Cooler (ASCP) Dictated by [facility] 04-12-2024 Note All parts labelled with patient name and [id number] Received in formalin labelled left lateral scalp Is a white smooth oval-shaped cystic cavity withno surfacing skin measuring 2.4 x 1.6 x 1.6 cm. Sectioning reveals white light brown cystic cut surfaces. RS-1 Hermann Cho' Car Pre Cooler (ASCP) Dictated by [facility] 04-12-2024 Note All parts labelled with patient name and [id number] Received in formalin labelled left lateral scalp Is a white smooth oval-shaped cystic cavity withno surfacing skin measuring 2.4 x 1.6 x 1.6 cm. Sectioning reveals white light brown cystic cut surfaces. RS-1 Meryl Martin Pathologists' Car Pre Cooler (ASCP) Dictated by [facility] 04-12-2024 Note All parts labelled with patient name and [id number] Received in formalin labelled left lateral scalp Is a white smooth oval-shaped cystic cavity withno surfacing skin measuring 2.4 x 1.6 x 1.6 cm. Sectioning reveals white light brown cystic cut surfaces. RS-1 Meryl Martin Pathologists' Car Pre Cooler (ASCP) Dictated by [facility] 04-12-2024 Note All parts labelled with patient name and [id number] Received in formalin labelled left lateral scalp Is a white smooth oval-shaped cystic cavity withno surfacing skin measuring 2.4 x 1.6 x 1.6 cm. Sectioning reveals white light brown cystic cut surfaces. RS-1 Meryl Martin Pathologists' Car Pre Cooler (ASCP) Dictated by [facility] 04-12-2024 Note All parts labelled with patient name and [id number] Received in formalin labelled left lateral scalp Is a white smooth oval-shaped cystic cavity withno surfacing skin measuring 2.4 x 1.6 x 1.6 cm. Sectioning reveals white light brown cystic cut surfaces. RS-1 Hermann Cho' Car Pre Cooler (ASCP) Dictated by [facility] 01-08-2024 Hospital Discharge instructions Patient Education [...] and water are not available, use hand mattress and foundation sewer. ?Change your dressing as told by your [...] antibiotic even if your condition improves. Take lrmc-ctb-jvmpzpk and prescription medicines only as told by [...] 08/27/2005 Document Revised: 02/09/2019 Document Reviewed: 08/25/2016 [employer] Patient Education 2020 [employer] 02/28/2023 11:06:35 Abdominal Aortic Aneurysm Open Repair [...] including vitamins, herbs, eye drops, creams, and hrxn-xbi-xfbevnp medicines. Any problems you or family members [...] 01/26/2010 Document Revised: 01/20/2018 Document Reviewed: 05/03/2016 [employer] Patient Education 2020 [employer] 02/28/2023 11:05:37 Chronic Kidney Disease, Adult Chronic [...] older than age 60. Are female. Are -Citizen Of The [place], , , , or . Are a [...] Follow these instructions at home: Medicines Take ryge-nak-yvnkmsk and prescription medicines only as told by [...] is important. Where to find more information Citizen Of [place] Association of Kidney Patients: www.aakp.org National Kidney Foundation: www.kidney.org Citizen Of The [place] Kidney Fund: www.akfinc.org Life Options Rehabilitation Program: [...] 11/16/2008 Document Revised: 01/20/2018 Document Reviewed: 03/17/2017 [employer] Patient Education 2020 [employer] 02/28/2023 11:05:26 Steps to Quit Smoking Steps [...] require a prescription and some youcan purchase myze-ksv-kbnxnxk. Medicines may have nicotine in them to [...] for support and encouragement. Call telephone quitlines (0-320-LTBO-NOW), reach out to support groups, or work [...] 02/01/2002 Document Revised: 04/27/2019 Document Reviewed: 04/28/2019 [employer] Patient Education 2020 [employer] Follow Up Care 02/10/2023 09:07:50 With:[facility] has been arranged for you Please call : [phone] with any questions. They will call you before they come out. Address:Unknown When: Unknown With:ROBERT SANDS MD, [facility], Surgery, Vascular Surgeons Address: [facility] [address] [facility] [address] [place] [address] When: Unknown Comments:one month With:EDY SALOMON DO Address: [address] [place] [address]- [phone] When: Unknown Comments:PLEASE CALL THIS OFFICE TO SCHEDULE A HOSPITAL FOLLOW UP APPOINTMENT. With:IGGY DUNCAN Address: [address] [place] [phone] When:03/16/2023 11:30:00 [facility] 01-08-2024 Note Discharge Instructions Thank you for allowing [facility] to assist you with your healthcare needs. The following is importantdischarge information regarding your hospital visit. Your Care Team EDY SALOMON DO Your Diagnosis Eustachian tube dysfunction What to do next Scheduled Follow-Up Appointments Appointment Type When With Where Contact InformationCV OV 03/16/2023 11:30 AM EST IGGY DUNCAN [facility] Medicare 03/29/2023 01:00 PM EST EDY SALOMON DO [address] [address] Follow Up Appointments Follow Up with IGGY DUNCAN When 03/16/2023 11:30 AM EST Where: [address] [place] [address] [address] [place] [address], [place] [address]- [phone] Follow Up with [facility] has been arranged for you Please call : [phone] with any questions. They will call you before they come out. When Follow Up with ROBERT SANDS MD, [facility], Surgery, Vascular Surgeons When Why: one month Where: [facility] [address] [facility] [address] [place] [address] Follow Up with EDY SALOMON DO When Why: PLEASE CALL THIS OFFICE TO SCHEDULE A HOSPITAL FOLLOW UP APPOINTMENT. Where: [address] [place], [place] [id number]- [phone] The Following Activity and Diet Have Been [...] When Why Instructions Last Dose New acetaminophen-hydrocodone (Chandler 325- 5 mg oral tablet) 1 tab(s) [...] the same time every day Pickup at [facility] #09534 Changed albuterol (Albuterol (Eqv-Ventolin HFA) 90 mcg/ inh inhalation aerosol) 2 puff(s) by inhalation Every 6 hours as needed for Shortness of breath or wheezing Duration: 30 Days Pickup at [facility] #[id number] Changed albuterol (Ventolin HFA MDI (90 mcg/ [...] twice daily until healing complete. Pharmacy Information [facility] #[id number]: [place] [phone] Please take this list to your next [...] soap and water arenot available, use hand mattress and foundation sewer. ? Change your dressing as told by [...] antibiotic even if your condition improves. Take ribg-cma-dlvryre and prescription medicines only as told by [...] 08/27/2005 Document Revised: 02/09/2019 Document Reviewed: 08/25/2016 [employer] Patient Education 2020 [employer] Abdominal Aortic Aneurysm Open Repair Abdominal [...] including vitamins, herbs, eye drops, creams, and kfqj-vqt-ptjbldm medicines. Any problems you or family members [...] 01/26/2010 Document Revised: 01/20/2018 Document Reviewed: 05/03/2016 [employer] Patient Education 2020 [employer] Chronic Kidney Disease, Adult Chronic kidney [...] older than age 60. Are female. Are -Citizen Of [place], , , , or . Are a [...] Follow these instructions at home: Medicines Take mpqa-ath-qlxaxch and prescription medicines only as told by [...] is important. Where to find more information Citizen Of [place] Association of Kidney Patients: www.aakp.org National Kidney Foundation: www.kidney.org Citizen Of [place] Kidney Fund: www.akfinc.org Life Options Rehabilitation Program: [...] 11/16/2008 Document Revised: 01/20/2018 Document Reviewed: 03/17/2017 [employer] Patient Education 2020 [employer] Steps to Quit Smoking Smoking tobacco is [...] require a prescription and some youcan purchase vvgo-zht-avrcvjy. Medicines may have nicotine in them to [...] for support and encouragement. Call telephone quitlines (6-810-VJTD-NOW), reach out to support groups, or work [...] 02/01/2002 Document Revised: 04/27/2019 Document Reviewed: 04/28/2019 [employer] Patient Education 2020 [employer] Additional Information VACCINATE! IT SAVES LIVES! Members of the community who have not yet received the COVID-19 vaccine and would like to receive it can visit one of [facility] vaccine clinics. There are many vaccine clinic locations within the [facility]. For locations and available times, please visit https://gettheshot.coronavirus.[place].gov/. It is important to note that some COVID mobile vaccine clinics are held outdoors and may be canceled in rainy or stormy conditions. To learn more about pediatric vaccinations (ages 5-11), we invite you to visit the [facility] webpage. https://www.[facility].org/pages/9854-Tgsot-Ybfqbztrcdu-Shgibtijbm-Bzvsf-Bet stions.htmlTo learn more about the COVID-19 vaccine, we invite you to visit the CDC website for a list of frequently asked questions.https://www.cdc.gov/coronavirus/2019-ncov/vaccines/faq.html [facility] Patient Portal Access Instructions: Stay connected with your healthcare team and access your personal medical information anytime with the [facility] Patient Portal. Please follow the directions below to create your [facility] account: 1.Access the email account you provided upon registration to the hospital/physician office.2.Look for an invitation email from [facility].3.Open the email and access the invitation link: AcceptInvitation to [facility].4.Fill in the required sagastume to create your account. To access your account, visit [employer]. Click the blue button labeled Access Patient Portal and then log in with the username and password that you created in the steps above. You will be able to view your test results, lab results, a summary of your visits, upcoming appointments and more. There is also a convenient messaging option where you can send secure messages to your Carticipatevider. In addition, you will have the ability to download any documents or summaries to your computer and/or send the information securely to a physician. Remember that your healthcare information is confidential, so carefully consider who you will allowto register on the [facility] Patient Portal for access to your information. You can also access the [facility] Patient Portal on the [facility] keisha. Simply click on Patient Portal and then log into your account. If you would like to receive a full copy of your medical records, please contact the [facility] Medical Records Department by calling [phone], Tuesday through Tuesday between 8 a.m. and [...] Call your local pharmacy or go to [email or web address] to find one close to you.3.Make use of household items: Use cat litter or old coffee grounds to dispose medications if other options arenot available. Mix your drugs with these household products, seal them in an airtight container andthrow it into the garbage. Call [facility]: [phone] to be sure your drugs can be [...] aware that I should contact my doctor. 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: Date/Time: Relationship to Patient: Witness Name/Signature: Date/Time: [id number] Discharge summary Date of Service 02-24-2023 Discharge [...] Discharge Date 02-28-2023 Medications New Prescription acetaminophen-hydrocodone (Chandler 325- 5 mg oral tablet)1 tab(s) by [...] When 03/16/2023 11:30 AM EST Where: [address] [facility] [address] [place] [address]- [phone] Follow Up with ROBERT SANDS MD, [facility], Surgery, Vascular Surgeons When Why: one month Where: [facility] [address] [place] [address] Follow Up with EDY SALOMON DO When Why: PLEASE CALL THIS OFFICE TO SCHEDULE A HOSPITAL FOLLOW UP APPOINTMENT. Where: [address] [place] [address]- [phone] Discharge Diet Full liquid diet and advance to regular diet as tolerated Discharge Activity Increase walking 45 minutes daily, no lifting over 15 pounds 1 week Condition on Discharge Stable Readmission Risk/Palliative Score LACE Score: 8 (02/25/23 08:20:00) Discharge Disposition Home Digitally Signed by ROBERT SANDS MD on 02/28/2023 07:01 AM [id number] Vascular surgery Progress note Date of Service [...] IV Push, AsDirected fluticasone nasal 0.05 mg/inh [place] 100 mcg 2 spray(s), Nostril, each, qDay [...] ROBERT SANDS MD on 02/28/2023 06:58 AM [id number] Vascular surgery Progress note Date of Service [...] IV Push, AsDirected fluticasone nasal 0.05 mg/inh [place] 100 mcg 2 spray(s), Nostril, each, qDay [...] ROBERT SANDS MD on 02/27/2023 10:21 AM [id number] Note Date of Service 02/27/2023 Subjective 82-year-old [...] IV Push, AsDirected fluticasone nasal 0.05 mg/inh Quinnesec 100 mcg 2 spray(s), Nostril, each, qDay [...] LUCIAN MCKEON MD on 02/27/2023 09:45 AM [id number] Note ORIGINAL EXAMINATION: CT OF THE CHEST [...] Sign Date: 02/27/2023 8:46:56 AM Ordering Provider: [facility]01-06-2024 Vascular surgery Progress note Date of [...] cap(s), Oral, BID fluticasone nasal 0.05 mg/inh Quinnesec 100 mcg 2 spray(s), Nostril, each, qDay [...] ROBERT SANDS MD on 02/26/2023 12:12 PM [id number] Note Date of Service 02/26/2023 Subjective 82-year-old [...] Inhalation, q6hRT clotrimazole topical 1% Cream 1 keisah, Topical, BID dextrose 50% Solution Disp syringe 50 mL 12.5 gram(s) 25 mL, IV Push, AsDirected docusate sodium 100 mg Capsule 100 mg 1 cap(s), Oral, BID fluticasone nasal 0.05 mg/inh Quinnesec 100 mcg 2 spray(s), Nostril, each, qDay [...] LUCIAN MCKEON MD on 02/26/2023 09:31 AM [id number] Critical care medicine Consult note Date of [...] joint arthritis Bilateral hip pain CAD in [place] artery CHF (CONGESTIVE HEART FAILURE) Chronic kidney [...] NHAN ROTH MD on 02/25/2023 01:53 PM [id number] Note ORIGINAL EXAMINATION: ONE XRAY VIEW OF [...] Sign Date: 02/24/2023 5:29:28 PM Ordering Provider: [facility]01-04-2024 Anesthesiology Consult note Patient: ROSA LANDERS Age: [...] keisha, Topical, BID fluticasone nasal 0.05 mg/inh Quinnesec 100 mcg 2 spray(s), Nostril, each, qDay Problem list: Medical Abdominal aortic aneurysm greater than 39 mm in diameter / SNOMED CT 457154695 / Confirmed Opacity of lung on imaging study / SNOMED CT 534930345 / Confirmed DIMINISHED PULSES IN LOWER EXTREMITY / SNOMED CT 734582759 / Confirmed Allergic rhinitis / SNOMED CT 114263138 / Confirmed Aortic valve calcification / SNOMED CT 414276410 / Confirmed Aortic valve regurgitation / SNOMED CT 362966820 / Confirmed Bilateral hip joint arthritis / SNOMED CT 3906166190 / Confirmed Osteonecrosis of left hip / SNOMED CT 2975680532 / Confirmed Aortic atherosclerosis / SNOMED CT 273876410 / Confirmed Low bone density / SNOMED CT 9849723168 / Confirmed Chronic kidney disease, stage 3b / SNOMED CT 7053602852 / Confirmed CHF (CONGESTIVE HEART FAILURE) / SNOMED CT 10788345 / Confirmed Constipation / SNOMED CT 74663518 / Confirmed COPD - Chronic obstructive pulmonary disease / SNOMED CT 259237417 / Confirmed CAD in [place] artery / SNOMED CT 6189156501 / Confirmed Renal cyst / SNOMED CT 0938394688 / Confirmed Dizziness / SNOMED CT 6906387477 / Confirmed Systolic ejection murmur / SNOMED CT 524929324 / Confirmed Abnormal EKG / SNOMED CT 0542730121 / Confirmed Full code status / SNOMED CT 179179013 / Confirmed GERD - Gastro-esophageal reflux disease / SNOMED CT 5886738184 / Confirmed History of pneumonia / SNOMED CT 686720379 / Confirmed History of acute respiratory failure / SNOMED CT 449603370 / Confirmed Combined systolic and diastolic heart failure / SNOMED CT 257503477 / Confirmed Hilar lymphadenopathy / SNOMED CT 632811201 / Confirmed Hip pain / SNOMED CT 66541736 / Confirmed Bilateral hip pain / SNOMED CT 15834800 / Confirmed Hyperbilirubinemia / SNOMED CT 01041072 / Confirmed Hyperlipidemia / SNOMED CT 31358101 / Confirmed Hypermagnesemia / SNOMED CT 093376829 / Confirmed Hypernatremia / SNOMED CT 9321313606 / Confirmed Hyperphosphatemia / SNOMED CT 71905873 / Confirmed Hypertension goal BP (blood pressure) < 140/90 / SNOMED CT 9177800457 / Confirmed Hypocalcemia / SNOMED CT 5475377 / Confirmed Hypothyroidism / SNOMED CT 56901611 / Confirmed Mixed incontinence / SNOMED CT 56438182 / Confirmed Elevated serum protein level / SNOMED CT 574679538 / Confirmed Staphylococcus epidermidis infection / SNOMED CT 5836100366 / Confirmed Intermittent claudication / SNOMED CT 761283322 / Confirmed Pulmonary fibrosis / SNOMED CT 691549995 / Confirmed Intertrigo / SNOMED CT 45447331 / Confirmed Hepatomegaly / SNOMED CT 036635508 / Confirmed Hepatomegaly, not elsewhere classified / SNOMED CT 024761382 / Confirmed LV dysfunction / SNOMED CT 5657341314 / Confirmed Lesion of ear canal / SNOMED CT 160625185 / Confirmed Low back pain / SNOMED CT 817824295 / Confirmed Pulmonary nodule / SNOMED CT 639457288 / Confirmed Macrocytic anemia / SNOMED CT 896828914 / Confirmed Mitral valve regurgitation / SNOMED CT 34436486 / Confirmed Lung nodule, multiple / SNOMED CT 2354683261 / Confirmed Neuropathy / SNOMED CT 3862171249 / Confirmed Nicotine vapor product user / SNOMED CT 1095915638 / Confirmed Onychomycosis of toenail / SNOMED CT 1100623269 / Confirmed Osteoarthritis of facet joint of lumbar spine / SNOMED CT 9744616473 / Confirmed Osteoporosis / SNOMED CT 269138159 / Confirmed Overactive bladder / SNOMED CT 9564747816 / Confirmed Arterial insufficiency of lower extremity / SNOMED CT 3154942511 / Confirmed PVD (peripheral vascular disease) / SNOMED CT 0554062098 / Confirmed Post-menopausal / SNOMED CT 233651978 / Confirmed Pulmonary embolism / SNOMED CT 76649891 / Confirmed Emphysema of lung / SNOMED CT 571908408 / Confirmed Restless legs syndrome / SNOMED CT 37092948 / Confirmed Moderate scoliosis / SNOMED CT 152867774 / Confirmed Scoliosis of lumbar spine / SNOMED CT 5290601106 / Confirmed Left shoulder pain / SNOMED CT 69070432 / Confirmed Hepatic steatosis / SNOMED CT 105114479 / Confirmed Tobacco use / SNOMED CT 620725539 / Confirmed Mild persistent asthma, uncomplicated / SNOMED CT 1219964045 / Confirmed Urinary incontinence / SNOMED CT 8637586349 / Confirmed Vitamin D deficiency / SNOMED CT 62048973 / Confirmed, Active Problems (88) Abdominal aortic aneurysm greater than 39 mm in diameter Abnormal EKG Acute respiratory failure Allergic rhinitis Anemia Aortic atherosclerosis Aortic valve calcification Aortic valve regurgitation Arterial insufficiency of lower extremity Arthritis Back pain Bilateral hip joint arthritis Bilateral hip pain BMI 24.0-24.9, adult CAD in [place] artery Cellulitis CHF (CONGESTIVE HEART FAILURE) Chronic [...] History: Resolved Wound of left lower extremity (8320748209): Resolved. Comments: 06/26/2019 EDT 8:49 EDT - EDY SALOMON DO 05/10 per [facility], venous leg ulcer Thrombocytopenia (7904293658): Resolved. Iron deficiency anemia (077768722): Resolved. Family History: Cancer Father Comments: 02/01/2019 9:40 Mellisa Teixeira LPN skin Mother Comments: 02/01/2019 9:40 Mellisa Teixeira LPN stomach COPD - Chronic obstructive pulmonary disease Father Procedure history: Cardiac catheterization ([id number]) on 03/26/2019 at 78 Years. Breast biopsy sample ([id number]) in 2008 at 68 Years. Comments: 02/01/2019 9:42 Mellisa Teixeira LPN left Colonoscopy (779319460) in 2008 at 68 Years. Thyroidectomy (26481874). Bronchoscopy (96697038). Social History Social & Psychosocial Habits Alcohol [...] Oral36.5 DegC (FEB 24 10:05) Heart Rate Qbxtcylad29 bpm (FEB 24 12:20) Resp Rate 16 br/min (FEB 24 10:05) PEE197 mmHg (FEB 24 11:37) DBP69 mmHg (FEB [...] range of motion. Integumentary: Intact, Warm, Dry, [place]. Neurologic: Alert, Oriented. Review / Management Results review: Labs (Last four charted values) Plt 185(FEB 24) PT 11.4(FEB 24) INR 1.0(FEB 24) PTT 31.9(FEB 24) . Assessment and Plan Citizen Of The [place] Society of Anesthesiologists (ASA) physical status classification: [...] MIRZA LAMA DO on 02/24/2023 12:32 PM [id number]* Exam Date Time Procedure Performing Provider Status 01/18/23 11:12 AM Echocardiogram, Adult (AOH) Auth (Verified) [facility] Evaluation + Plan note Future Appointments Appointment Date:02/26/2021 01:30:00 PM Scheduled Provider:EDY SALOMON DO Location:[facility] Appointment Type:PC OV Appointment Date:08/31/2021 01:15:00 PM Scheduled Provider:IGGY DUNCAN Location:[facility] Appointment Type:CV OV Future Scheduled Tests Laboratory* Thyroid Stimulating Hormone 08/08/20 Radiology* BD Bone Density DEXA Axial Skeleton 06/27/20 * CT Thorax w/ Contrast 06/27/20 [facility] evaluation + Plan note Future Appointments Appointment Date:09/21/2021 02:00:00 PM Scheduled Provider:IGGY DUNCAN Location:[facility] Appointment Type:CV OV Future Scheduled Tests Radiology* BD Bone Density DEXA Axial Skeleton 04/03/21 * CT Head or Brain w/o Contrast 04/03/21 * CT Thorax w/ Contrast 06/27/20 [facility] Raynforestaluation + Plan note Future Appointments Appointment Date:06/16/2022 11:00:00 AM Scheduled Provider:EDY SALOMON DO Location:[facility] Appointment Type:PC Wellness Medicare Diagnostic Tests Pending * Vitamin D Level 10/07/21 Future Scheduled Tests Radiology* BD Bone Density DEXA Axial Skeleton 04/03/21 * CT Head or Brain w/o Contrast 04/03/21 [facility] evaluation + Plan note Future Appointments Appointment Date:06/16/2022 11:00:00 AM Scheduled Provider:EDY SALOMON DO Location:[facility] Appointment Type:[facility] Medicare Appointment Date:03/16/2023 11:30:00 AM Scheduled Provider:IGGY DUNCAN Location:[facility] Appointment Type:CV OV Future Scheduled Tests Radiology* BD Bone Density DEXA Axial Skeleton 04/03/21 * CT Head or Brain w/o Contrast 04/03/21 [facility] evaluation + Plan note Future Appointments Appointment Date:10/15/2022 01:30:00 PM Scheduled Provider:EDY SALOMON DO Location:[facility] Appointment Type:PC OV Appointment Date:03/16/2023 11:30:00 AM Scheduled Provider:IGGY DUNCAN Location:[facility] Appointment Type:CV OV Future Scheduled Tests Laboratory* Thyroid Stimulating Hormone 07/23/22 [facility] evaluation + Plan note Future Appointments Appointment Date:03/16/2023 11:30:00 AM Scheduled Provider:IGGY DUNCAN Location:[facility] Appointment Type:CV OV Appointment Date:03/29/2023 01:00:00 PM Scheduled Provider:EDY SALOMON DO Location:[facility] Appointment Type:PC Wellness Medicare Future Scheduled Tests Laboratory* Basic Metabolic Panel 10/18/22 Radiology* XR Chest 2 Views (PA & Lateral) 10/19/22 [facility] evaluation + Plan note Future Appointments Appointment Date:06/06/2023 01:30:00 PM Scheduled Provider:IGGY DUNCAN Location:[facility] Appointment Type:CV OV Appointment Date:06/21/2023 01:30:00 PM Scheduled Provider:EDY SALOMON DO Location:[facility] Appointment Type:PC Wellness Medicare Future Scheduled Tests Laboratory* Basic Metabolic Panel 10/18/22 * Basic Metabolic Panel 04/13/23 * Magnesium Level 04/13/23 * Complete Blood Count 04/13/23 * Vitamin D Level 04/13/23 Radiology* XR Chest 2 Views (PA & Lateral) 10/19/22 [facility] Evaluation + Plan note Future Appointments Appointment Date:06/21/2023 01:30:00 PM Scheduled Provider:EDY SALOMON DO Location:[facility] Appointment Type:PC Wellness Medicare Future Scheduled Tests Laboratory* Basic Metabolic Panel 10/18/22 * Basic Metabolic Panel 04/13/23 * Magnesium Level 04/13/23 * Complete Blood Count 04/13/23 * Vitamin D Level 04/13/23 Radiology* XR Chest 2 Views (PA & Lateral) 10/19/22 [facility] evaluation + Plan note Future Appointments Appointment Date:03/28/2024 02:30:00 PM Scheduled Provider:IGGY DUNCAN Location:[facility] Appointment Type:CV OV Future Scheduled Tests Laboratory* Basic Metabolic Panel 10/18/22 * Basic Metabolic Panel 04/13/23 * Magnesium Level 04/13/23 * Complete Blood Count 04/13/23 * Vitamin D Level 04/13/23 Radiology* XR Chest 2 Views (PA & Lateral) 10/19/22 [facility] Evaluation + Plan note Future Appointments Appointment Date:02/03/2024 11:30:00 AM Scheduled Provider:EDY SALOMON DO Location:[facility] Appointment Type:PC OV Appointment Date:03/28/2024 02:30:00 PM Scheduled Provider:IGGY DUNCAN Location:[facility] Appointment Type:CV OV Future Scheduled Tests Laboratory* Basic Metabolic Panel 04/13/23 * Magnesium Level 04/13/23 * Complete Blood Count 12/23/23 * Complete Blood Count 04/13/23 * Vitamin D Level 04/13/23 * N-Terminal proBNP 12/23/23 Radiology* BD Bone Density DEXA Axial Skeleton Adult (21 yrs or older) 12/23/23 * US Soft Tissue Mass of Neck 12/23/23 [facility] Evaluation + Plan note Future Appointments Appointment Date:02/17/2024 03:30:00 PM Scheduled Provider:EDY SALOMON DO Location:[facility] Appointment Type:PC OV Appointment Date:03/28/2024 02:30:00 PM Scheduled Provider:IGGY DUNCAN Location:[facility] Appointment Type:CV OV Future Scheduled Tests Laboratory* Basic Metabolic Panel 04/13/23 * Magnesium Level 04/13/23 * Complete Blood Count 04/13/23 * Vitamin D Level 04/13/23 [facility] Evaluation + Plan note Future Appointments Appointment Date:09/04/2024 02:45:00 PM Scheduled Provider: Location:[facility] Appointment Type:MRI Brain w/ + w/o Contrast [...] MRI Brain w/ + w/o Contrast 09/04/24 [facility] Evaluation + Plan note Future Appointments Appointment Date:09/18/2024 02:30:00 PM Scheduled Provider:IGGY DUNCAN Location:[facility] Appointment Type:CV OV Appointment Date:09/25/2024 02:30:00 PM Scheduled Provider:EDY SALOMON DO Location:[facility] Appointment Type:PC OV Appointment Date:01/02/2025 02:30:00 PM Scheduled Provider:EDY SALOMON DO Location:[facility] Appointment Type:PC Wellness Medicare Future Scheduled Tests Radiology* CT Angiography Abd Aorta + Iliofemoral 07/11/24 [facility] Evaluation + Plan note Future Appointments Appointment Date:09/18/2024 02:30:00 PM Scheduled Provider:IGGY DUNCAN Location:[facility] Appointment Type:CV OV Appointment Date:09/25/2024 [...] CT Abd/Pelvis w/ IV Contrast Only 12/11/24 [facility] Evaluation + Plan note Future Appointments Appointment Date:10/23/2024 01:30:00 PM Scheduled Provider:IGGY DUNCAN Location:[facility] Appointment Type:CV OV Appointment Date:12/11/2024 01:00:00 PM Scheduled Provider: Location:[facility] Appointment Type:CT Abd/Pelvis w/ IV Contrast Only Appointment Date:12/18/2024 01:30:00 PM Scheduled Provider:EDY SALOMON DO Location:[facility] Appointment Type:PC OV Appointment Date:01/02/2025 02:30:00 PM Scheduled Provider:EDY SALOMON DO Location:[facility] Appointment Type:PC Wellness Medicare Future Scheduled Tests Radiology* CT Angiography Abd Aorta + Iliofemoral 07/11/24 * CT Abd/Pelvis w/ IV Contrast Only 12/11/24 [facility] Evaluation + Plan note Future Appointments Appointment Date:12/11/2024 01:00:00 PM Scheduled Provider: Location:[facility] Appointment Type:CT Abd/Pelvis w/ IV Contrast Only Appointment Date:12/18/2024 01:30:00 PM Scheduled Provider:EDY SALOMON DO Location:[facility] Appointment Type:PC OV Appointment Date:01/02/2025 02:30:00 PM Scheduled Provider:EDY SALOMON DO Location:[facility] Appointment Type:PC Wellness Medicare Appointment Date:01/22/2025 11:00:00 AM Scheduled Provider: Location:[facility] Appointment Type:Echo - Echocardiogram Adult Appointment Date:01/29/2025 11:00:00 AM Scheduled Provider:IGGY DUNCAN Location:[facility] Appointment Type:CV OV Future Scheduled Tests Radiology* CT Angiography Abd Aorta + Iliofemoral 07/11/24 * CT Abd/Pelvis w/ IV Contrast Only 12/11/24 [facility] evaluation + Plan note Future Appointments Appointment Date:12/18/2024 01:30:00 PM Scheduled Provider:EDY SALOMON DO Location:[facility] Appointment Type:PC OV Appointment Date:01/02/2025 02:30:00 PM Scheduled Provider:EDY SALOMON DO Location:[facility] Appointment Type:PC Wellness Medicare Appointment Date:01/22/2025 11:00:00 AM Scheduled Provider: Location:[facility] Appointment Type:Echo - Echocardiogram Adult Appointment Date:01/29/2025 11:00:00 AM Scheduled Provider:IGGY DUNCAN Location:[facility] Appointment Type:CV OV Future Scheduled Tests Radiology* CT Angiography Abd Aorta + Iliofemoral 07/11/24 [facility] Evaluation noteNo assessment information available [facility] Work Phone: Hospital course Narrative No data available for this section [facility] Hospital Discharge instructions No data available for this section [facility] Progress note No data available for this section [facility] Reason for referral (narrative)No reason for referral information availableWToledo [facility] Work Phone: Summary Purpose Family History [...] section and content) DATE CREATED AUTHOR 07/16/2019 [facility] DATE CREATED AUTHOR AUTHOR'S ORGANIZ ATION 09/16/2023 [facility] ([place]) DATE CREATED AUTHOR AUTHOR'S ORGANIZ ATION 11/02/2024 [facility] DATE CREATED AUTHOR AUTHOR'S ORGANIZ ATION 11/29/2024 [facility] DATE CREATED AUTHOR AUTHOR'S ORGANIZ ATION 12/14/2024 [facility] Care Team (unrecognized sect ion and content) [...] Member Role: Primary Care Physician Address: Address: [address] [place] [address] Care Team Related Persons Name: PATRICIA VALENZUELA Care Team Personnel Name: EDY SALOMON DO Position: P4 Physician - Primary Care Member Role: Primary Care Physician Address: Address: [address] [place] [address] Care Team Related Persons Name: PATRICIA VALENZUELA [...] BE BASED ON THE PRIMARY CLINICAL RECORDS. [facility] [employer] [facility]. provides no warranty or guarantee of the accuracy or completeness of information in this document.
[2025-01-23] MEDS: 0.9% Saline Lock 10 ML Syringe IV (20:34)
[2025-01-24] VITALS (9 sets, daily range): BP systolic 106–155; BP diastolic 45–73; PULSE 72–80; RESP 16–18; TEMP 36.9–37.2; O2SAT 93–97
[2025-01-24] MEDS: 0.9% Normal Saline (1000mL) 1,000 ML 75 ML IV (06:35)
[2025-01-24 06:46] LABS: Hematocrit 33.3 % (37-47); Hemoglobin 11.2 g/dL (12.0-15.0); Immature Granulocytes Count 0.040 X10^3/uL (0.0-0.0); Mean Corp Hgb Conc 33.6 g/dL (32-36); Mean Corpuscular Volume 93.5 fL (81-99); Mean Platelet Vol. 10.5 fl (6.2-12.0); NRBC Flagged by Analyzer 0 % (0-5); Platelet Count 146 K/mm3 (150-450); RBC Distribution Width CV 13.5 % (11.6-14.6); RBC Distribution Width SD 46.4 fl (35.1-43.9); Red Blood Count 3.56 M/mm3 (4.2-5.4); White Blood Count 11.8 K/mm3 (4.4-11.0)
[2025-01-24 07:08] LABS: Anion Gap 13 (5-15); BUN 18 mg/dL (4-19); BUN/Creat Ratio 16.3 RATIO (10-20); Calcium,Total 8.2 mg/dL (7.6-11.0); Carbon Dioxide 22.8 mmol/L (21.0-32.0); Chloride 109 mmol/L (98-108); Estimated Creatinine Clearance 34.08 ml/min (50-250); Glucose 150 mg/dL (70-99); Potassium 4.2 mmol/L (3.3-5.1)
--- NOTE | 2025-01-24 07:39 | PN.URO_ITS ---
Subjective Subjective 84 yo female s/p open partial for deep tumor monitor JULIEN heplock fluids ambulate, PT reg diet pain control d/c juan sq lovenox Objective Data Objective Data Vital Signs: Vital Signs Temp Pulse Resp BP Pulse Ox O2 Del Method O2 Flow Rate 98.5 F 73 16 133/65 H 94 Nasal Cannula 2 01/24/25 06:44 01/24/25 06:44 01/24/25 06:44 01/24/25 06:44 01/24/25 06:44 01/24/25 06:44 01/24/25 06:44 Oxygen Flow Rate (L/min) 2 Oxygen Delivery Method Nasal Cannula Weight: 62.9 kg Body Mass Index (BMI) 23.8 Intake & Output: Intake and Output for Last 24 Hours 01/22/25 01/23/25 01/24/25 23:59 23:59 23:59 Intake Total 1150 / 1300 1115 / 1115 Output Total 690 / 890 200 / 200 Balance 460 / 410 915 / 915 Lab / Micro Data 01/24/25 06:08 01/24/25 06:08 Labs: Laboratory Results - last 24 hr 01/23/25 13:05: Blood Type O POSITIVE, Antibody Screen NEGATIVE 01/24/25 06:08: WBC 11.8 H, RBC 3.56 L, Hgb 11.2 L, Hct 33.3 L, MCV 93.5, MCH 31.5, MCHC 33.6, RDW Std Deviation 46.4 H, RDW Coeff of Brandon 13.5, Plt Count 146 L, MPV 10.5, Immature Gran % (Auto) 0.300, Neut % (Auto) 83.3 H, Lymph % (Auto) 7.5 L, [place] % (Auto) 8.8, Eos % (Auto) 0.0, Baso % (Auto) 0.1, Absolute Neuts (auto) 9.9 H, Absolute Lymphs (auto) 0.89, Nucleated RBC % 0, Sodium 145, Potassium 4.2, Chloride 109 H, Carbon Dioxide 22.8, Anion Gap 13, BUN 18, Creatinine 1.08, Estim Creat Clear Calc 34.08 L, Est GFR (MDRD) Non-Af 51 L, BUN/Creatinine Ratio 16.3, Glucose 150 H, Calcium 8.2
[2025-01-24] MEDS: Polyethylene Glycol 3350 17 GM PACKET PO (10:37)
[2025-01-24] MEDS: FLU VACCINE HIGH DOSE 25-26(65YR UP) 180 MCG/0.5 ML SYRINGE IM (10:48)
--- NOTE | 2025-01-24 11:35 | CASEMGMT ---
Addendum entered by Caro Márquez 01/24/25 15:09: Call received back from pt's daughter, Naomy. She states the C pt had was [facility]. Original Note: RN?CM?ASSESSMENT ? RN?CM?to room to meet with patient for initial transition planning/care coordination?assessment.?RN?CM?introduced self and role at [facility].? Pt voices understanding and consents to?assessment?at this time.? Pt sitting up in chair in room in no distress at this time.? Pt is A/O at this time and answers all questions appropriately.?? Care providers, pharmacy, and demographics verified/updated at this time. ? Strata: 2 PCP: Dr Patton Specialists: Dr Abraham, vascular. Jeanette Patel NP, cardiology Preferred Pharmacy: [facility] @ discharge. Otherwise, goes to [facility]. Insurance: [facility], [employer] Prescription Benefit:?Yes LNOK: DaughterNaomy Living Arrangements: Lives w/dtr, Naomy, son-in-law, and granddaughter, in one-story home w/2 steps to enter. Daughter assists her up the stairs. Pt is independent w/ADL's and does her own laundry most of the time. She manages her own medications, although her daughter does re-order them, when needed. Family assists w/other IADL's. Pt states someone is usually w/her 13/09. Transportation:?Family DME: ?States has the following DME:?tub shower w/shower chair, grab bars by commode and in shower, rollator (pt calls it her 4-oliver), lift chair. Pt states no need for further DME at this time.? HHC/SNF: No hx of SNF. Has had HHC in the past and they just discharged her about 1-2 months ago. She would like HHC again and would like to use the same agency, although she does not remember the name of agency. She declines wanting list of other HHC options. She thought her daughter may know the name. As [facility] GONZALE[facility] just finishing up assessment, dtr Naomy, called in to talk w/pt. [facility] GONZALEZ spoke w/Naomy, who states she does not remember the name of agency, but will get this info and call [facility] GONZALEZ back. ? Pt wishes to return home and states has no further concerns with going home at time of discharge. Advised pt to ask for?CM?if any further questions/concerns/needs arise.? She voices understanding. ? PLAN:??Home w/HHC. ? Lynn BSN?RN?CM ?
--- NOTE | 2025-01-24 14:46 | CASEMGMT ---
TC to pt dtr to see if she has the name of the ROASTER OPERATOR that her mother had in the past. She states she cannot find the name but her will go to his father's and look for his folder as he had the same ROASTER OPERATOR as pt. She will return call.
--- NOTE | 2025-01-24 15:17 | CASEMGMT ---
Addendum entered by Jocelyn Casiano 01/25/25 10:42: [facility] accepted and requested clinicals sent via [facility]. Original Note: Discharge Planning HH referral sent via [facility] to [facility]. Jocelyn Casiano DC Planning Asst.
[2025-01-25] VITALS (7 sets, daily range): BP systolic 101–163; BP diastolic 51–76; PULSE 70–95; RESP 15–77; TEMP 36.8–37.6; O2SAT 92–97
[2025-01-25 07:15] LABS: Hematocrit 29.2 % (37-47); Hemoglobin 9.4 g/dL (12.0-15.0); Immature Granulocytes Count 0.040 X10^3/uL (0.0-0.0); Mean Corp Hgb Conc 32.2 g/dL (32-36); Mean Corpuscular Volume 96.4 fL (81-99); Mean Platelet Vol. 10.0 fl (6.2-12.0); NRBC Flagged by Analyzer 0 % (0-5); Platelet Count 115 K/mm3 (150-450); RBC Distribution Width CV 13.8 % (11.6-14.6); RBC Distribution Width SD 48.9 fl (35.1-43.9); Red Blood Count 3.03 M/mm3 (4.2-5.4); White Blood Count 9.1 K/mm3 (4.4-11.0)
[2025-01-25 07:52] LABS: Anion Gap 8 (5-15); BUN 19 mg/dL (4-19); BUN/Creat Ratio 17.0 RATIO (10-20); Calcium,Total 8.4 mg/dL (7.6-11.0); Carbon Dioxide 25.8 mmol/L (21.0-32.0); Chloride 105 mmol/L (98-108); Estimated Creatinine Clearance 33.16 ml/min (50-250); Glucose 117 mg/dL (70-99); Potassium 4.1 mmol/L (3.3-5.1)
[2025-01-25] MEDS: Polyethylene Glycol 3350 17 GM PACKET PO (08:55)
--- NOTE | 2025-01-25 10:29 | CASEMGMT ---
CK GONZALEZ notified by [facility] able to accept, SOC is scheduled for Tuesday01/28/25. CK GONZALEZ notified Pt. DC merchandising assistant following up on notes requested by [facility] agency, no H&P was done at time of admission due to being completed prior to surgery, which was sent to agency.
--- NOTE | 2025-01-25 16:00 | PCM.PN.GU ---
Subjective Subjective sp open partial nephrectomy stable cont w pain but doing ok Objective Data Objective Data Vital Signs: Vital Signs Temp Pulse Resp BP Pulse Ox O2 Del Method O2 Flow Rate 98.9 F 84 15 123/63 H 97 Nasal Cannula 3 01/25/25 14:29 01/25/25 14:29 01/25/25 14:29 01/25/25 14:29 01/25/25 14:29 01/25/25 14:32 01/25/25 14:32 Oxygen Flow Rate (L/min) 3 Oxygen Delivery Method Nasal Cannula Weight: 62.9 kg Body Mass Index (BMI) 23.8 Intake & Output: Intake and Output for Last 24 Hours 01/23/25 01/24/25 01/25/25 23:59 23:59 23:59 Intake Total 1150 / 1300 2558.75 / 2558.75 300 / 300 Output Total 690 / 890 600 / 800 260 / 260 Balance 460 / 410 1958.75 / 1758.75 40 / 40 Lab / Micro Data 01/25/25 07:02 01/25/25 07:02 Labs: Laboratory Results - last 24 hr 01/25/25 07:02: WBC 9.1, RBC 3.03 L, Hgb 9.4 L, Hct 29.2 L, MCV 96.4, MCH 31.0, MCHC 32.2, RDW Std Deviation 48.9 H, RDW Coeff of Brandon 13.8, Plt Count 115 L, MPV 10.0, Immature Gran % (Auto) 0.400, Neut % (Auto) 77.3 H, Lymph % (Auto) 13.2 L, [place] % (Auto) 8.4, Eos % (Auto) 0.4, Baso % (Auto) 0.3, Absolute Neuts (auto) 7.1, Absolute Lymphs (auto) 1.21, Nucleated RBC % 0, Sodium 139, Potassium 4.1, Chloride 105, Carbon Dioxide 25.8, Anion Gap 8, BUN 19, Creatinine 1.11, Estim Creat Clear Calc 33.16 L, Est GFR (MDRD) Non-Af 49 L, BUN/Creatinine Ratio 17.0, Glucose 117 H, Calcium 8.4
[2025-01-26] VITALS (8 sets, daily range): BP systolic 122–148; BP diastolic 55–73; PULSE 73–86; RESP 16–18; TEMP 36.9–37.3; O2SAT 86–97
[2025-01-26 05:37] LABS: Hematocrit 29.8 % (37-47); Hemoglobin 9.6 g/dL (12.0-15.0); Immature Granulocytes Count 0.070 X10^3/uL (0.0-0.0); Mean Corp Hgb Conc 32.2 g/dL (32-36); Mean Corpuscular Volume 98.0 fL (81-99); Mean Platelet Vol. 11.4 fl (6.2-12.0); NRBC Flagged by Analyzer 0 % (0-5); Platelet Count 101 K/mm3 (150-450); RBC Distribution Width CV 13.7 % (11.6-14.6); RBC Distribution Width SD 49.1 fl (35.1-43.9); Red Blood Count 3.04 M/mm3 (4.2-5.4); White Blood Count 10.6 K/mm3 (4.4-11.0)
[2025-01-26 05:57] LABS: Anion Gap 8 (5-15); BUN 15 mg/dL (4-19); BUN/Creat Ratio 15.8 RATIO (10-20); Calcium,Total 8.6 mg/dL (7.6-11.0); Carbon Dioxide 26.2 mmol/L (21.0-32.0); Chloride 104 mmol/L (98-108); Estimated Creatinine Clearance 38.34 ml/min (50-250); Glucose 102 mg/dL (70-99); Potassium 4.1 mmol/L (3.3-5.1)
--- NOTE | 2025-01-26 07:41 | PCM.TXEXTCAR ---
Diet Diet Order/Speech Therapy: INPATIENT Hospital Diet / Speech Therapy Order(s) 01/24/25 07:38 Diet: Regular - General Routine Orders/Code Status Code Status: Full Code DC O2, CPAP, BIPAP needs Home O2 Discharge instructions: Yes Type of respiratory needs?: Oxygen Oxygen frequency: At rest Wound(s) LEFT ABDOMEN: Wound Type: Surgical Incision left flank: Wound Type: Surgical Incision Allergies/Procedures Done in Hospital Allergies No Known Allergies Allergy (Verified 01/23/25 10:20) Type of Care/Length of Stay Estimated LOS: Convalescent Care Less Than 30 days Type of Care Needed: Skilled Rehab Potential: Good Prognosis: Good Additional Orders/Day of Discharge Day of Discharge: 01/26/25 Follow Up Care Please Follow Up With: Valdo Conti MD When: 2 weeks Discharge Plan Admission Admit Date/Time: 01/23/25 15:43 Primary Reason for Your Visit: left partial nephrectomy Attending Provider: Valdo Conti Primary Care Provider: Edy Patton Discharge Orders/Prescriptions Prescriptions: New docusate sodium [Colace] 100 mg capsule 100 mg PO BID Qty: 20 0RF oxycodone 5 mg tablet 5 mg PO Q6H PRN (Reason: pain) 7 Days Qty: 14 0RF Continued acetaminophen 500 MG tablet 500 mg PO Q4H PRN PRN (Reason: Pain Or Fever) albuterol sulfate 1 INHALER inhaler 2 puff inhalation Q6H PRN PRN (Reason: Wheezing) levothyroxine 112 MCG tablet 112 mcg PO DAILY loratadine 10 MG capsule 10 mg PO DAILY PRN (Reason: allergy symptoms) oxycodone 10 mg tablet 10 mg PO Q8 atorvastatin 40 mg tablet 40 mg PO QHS calcium carbonate-vitamin D2 600 mg calcium- 200 unit tablet 1 tab PO DAILY polyethylene glycol 3350 [Miralax] 17 gram/dose powder 4 g PO DAILY carvedilol [Coreg] 6.25 mg tablet 3.125 mg PO BID Rx Instructions: must administer with a meal/food pantoprazole 40 mg tablet,delayed release (DR/EC) 40 mg PO .evening before dinne Referrals / Follow Up: Valdo Conti MD [Med Staff - Active Staff, Urology] Edy Patton DO [Primary Care Provider, Family Practice] Disposition Disposition (needs filled in before D/C Order can be placed): Home, Self Care
--- NOTE | 2025-01-26 07:45 | PN.URO_ITS ---
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 Continue with incentive spirometer I think she is stable to get discharged to a rehab facility for strengthening and improvement for her going home we will make arrangements to get this started Objective Data Objective Data Vital Signs: Vital Signs Temp Pulse Resp BP Pulse Ox O2 Del Method O2 Flow Rate 98.8 F 76 18 129/67 H 92 Nasal Cannula 2 01/26/25 05:53 01/26/25 06:56 01/26/25 05:53 01/26/25 05:53 01/26/25 06:56 01/26/25 06:56 01/26/25 06:56 Oxygen Flow Rate (L/min) 2 Oxygen Delivery Method Nasal Cannula Weight: 62.9 kg Body Mass Index (BMI) 23.8 Intake & Output: Intake and Output for Last 24 Hours 01/24/25 01/25/25 01/26/25 23:59 23:59 23:59 Intake Total 2558.75 / 2558.75 1752.75 / 1752.75 200 / 200 Output Total 600 / 800 280 / 280 10 / 10 Balance 1958.75 / 1758.75 1472.75 / 1472.75 190 / 190 Lab / Micro Data 01/26/25 05:03 01/26/25 05:03 Labs: Laboratory Results - last 24 hr 01/25/25 07:02: Sodium 139, Potassium 4.1, Chloride 105, Carbon Dioxide 25.8, Anion Gap 8, BUN 19, Creatinine 1.11, Estim Creat Clear Calc 33.16 L, Est GFR (MDRD) Non-Af 49 L, BUN/Creatinine Ratio 17.0, Glucose 117 H, Calcium 8.4 01/26/25 05:03: WBC 10.6, RBC 3.04 L, Hgb 9.6 L, Hct 29.8 L, MCV 98.0, MCH 31.6, MCHC 32.2, RDW Std Deviation 49.1 H, RDW Coeff of Brandon 13.7, Plt Count 101 L, MPV 11.4, Immature Gran % (Auto) 0.700, Neut % (Auto) 75.6 H, Lymph % (Auto) 14.0 L, Barnes % (Auto) 8.8, Eos % (Auto) 0.7, Baso % (Auto) 0.2, Absolute Neuts (auto) 8.1 H, Absolute Lymphs (auto) 1.49, Nucleated RBC % 0, Sodium 138, Potassium 4.1, Chloride 104, Carbon Dioxide 26.2, Anion Gap 8, BUN 15, Creatinine 0.96, E stim Creat Clear Calc 38.34 L, Est GFR (MDRD) Non-Af 59 L, BUN/Creatinine Ratio 15.8, Glucose 102 H, Calcium 8.6
--- NOTE | 2025-01-26 09:14 | CASEMGMT ---
Social Work SW created in [facility] a list of shelter facilities in network w/pt's insurance, in pt's preferred geographic area, and complete w/quality and resource use data. CARLITO Moran
--- NOTE | 2025-01-26 10:22 | CASEMGMT ---
Addendum entered by Caro Márquez 01/26/25 14:01: Naomy did verify she spoke w/pt re: discharging home instead of SNF and pt was agreeable with same. Addendum entered by Caro Márquez 01/26/25 14:00: Per Freida STOVER, Dr Conti states pt will not discharge until tomorrow and she has updated pt's daughter re: same. CK GONZALEZ placed call to Naomy to inform her [facility] is not able to SOC on same day pt is discharged from the hospital and that should be calling her tomorrow to change SOC date. She voices understanding & appreciation for the call. Per Amanda, home O2 testing has been completed and pt does not qualify for home O2. Addendum entered by Caro Márquez 01/26/25 13:55: 1 PM: CK GONZALEZ spoke w/Naomy. She states she has spoken w/her and other family members and they have discussed pt going to a SNF. They have decided they want to have pt discharge home w/[facility]. She states they feel more comfortable w/bringing pt home and they will take care of her, stating she feels they can provide better care for her @ home than she will receive in a facility. She is aware pt is weak & was requiring 2 assist sit to stand yesterday and only able to ambulate 25 ft. 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 They also have a teenage daughter that can help and her brother is able to assist and stay if needed to help. She states they have plenty of DME. She states [facility] called her and they are actually planning to do SOC tomorrow. Discussed possible need of O2 @ discharge & provided information. She chose [employer] as DME co. if pt does qualify for O2. She was made aware pt medically ready to discharge today and she states is thankful for that. She voices no other discharge needs or concerns. Original Note: CK GONZALEZ NOTE: Per Dr Conti note, pt to dc to SNF. CK GONZALEZ reviewed therapy notes from yesterday. Pt required 2 assist sit to stand and only able to ambulate 25 ft, SNF recommended. CK GONZALEZ to room. Pt resting in bed. Discussed therapy with pt, weakness, and recommendation for SNF. Pt states she is really weak and she feels SNF would be beneficial. SNF list provided to her that was prepared by TYLER Huitron. Pt states she would like her daughter and son-in-law to decide. Call placed to daughter, Naomy. She was made aware of the above and that pt is agreeable to SNF. Naomy also feels this would be beneficial. Educated on MCR & SNF benefits and referral process. Questions answered. SNF list e-mailed to pt's son-in-law per Naomy's request @ [email or web address]. She was made aware to give top 3 preferences. She will either e-mail or call this CK GONZALEZ w/preferences. Lynn MARTINEZN CK GONZALEZ
[2025-01-26] MEDS: Polyethylene Glycol 3350 17 GM PACKET PO (10:51)
--- NOTE | 2025-01-26 13:56 | NURSING ---
This RN was notified that the patient's daughter did not want her to go to any of the SNF facilities that were under her insurance. Patient's daughter states she would like to take patient home instead. This RN did 02 trial for dc to home. See documentation. Dr. Conti was notified of same and states the patient can just stay one more night. He will likely take out JULIEN drain tomorrow. Patient's daughter and RNCM made aware as well.
[2025-01-27 05:42] VITALS: BP 146/80; PULSE 78; RESP 18; TEMP 36.5; O2SAT 95
--- NOTE | 2025-01-27 09:41 | PCM.DC.SUM ---
Providers Date of Admission: 01/23/25 Primary Care Physician: Dr. Edy Patton DO Reason For Visit: LEFT RENAL MASS Medications at Discharge Home Medications acetaminophen 500 mg tablet 500 mg PO Q4H PRN PRN Pain Or Fever 02/19/19 albuterol sulfate 90 mcg/actuation aerosol inhaler 2 puff inhalation Q6H PRN PRN Wheezing 02/19/19 levothyroxine 112 mcg tablet 112 mcg PO DAILY 02/19/19 loratadine 10 mg capsule 10 mg PO DAILY PRN allergy symptoms 02/19/19 atorvastatin 40 mg tablet 40 mg PO QHS 10/29/24 calcium carb-ergocalciferol (vit D2) 600 mg calcium-200 unit tablet 1 tab PO DAILY 10/29/24 oxycodone 10 mg tablet 10 mg PO Q8 pain 10/29/24 polyethylene glycol 3350 17 gram/dose oral powder (Miralax) 4 g PO DAILY 10/29/24 carvedilol 6.25 mg tablet (Coreg) 3.125 mg PO BID 01/15/25 pantoprazole 40 mg tablet,delayed release 40 mg PO .evening before dinne 01/15/25 docusate sodium 100 mg capsule (Colace) 100 mg PO BID #20 caps 01/23/25 oxycodone 5 mg tablet 5 mg PO Q6H PRN pain 7 days #14 tabs 01/26/25 Weight / BMI Weight Weight: 62.9 kg Body Mass Index (BMI) 23.8 ABG / Lab / Microbiology Data 01/26/25 05:03 01/26/25 05:03 D/C Instructions Call your doctor if your incision/area has: Continuous Slow Oozing and Sudden Increased Bleeding Call your doctor if you observe: Fever of 101 or Higher and Uncontrolled pain Suture Line Care: Avoid Pulling/Pushing and Avoid Pinching/Bending Additional Dressing/Incision Instructions: JULIEN drain to suction. DC O2, CPAP, BIPAP Needs Home O2 Discharge instructions: Yes Type of respiratory needs?: Oxygen Oxygen frequency: At rest DC home with Oxygen: No Please Follow Up With: Valdo Conti MD When: 7 days to remove drain Meaningful Use Info Meaningful Use Meaningful Use Diagnoses (Choose all that apply): None applicable Discharge Plan Admission Admit Date/Time: 01/23/25 15:43 Primary Reason for Your Visit: left partial nephrectomy Attending Provider: Valdo Conti Primary Care Provider: Edy Patton Discharge Orders/Prescriptions Prescriptions: New docusate sodium [Colace] 100 mg capsule 100 mg PO BID Qty: 20 0RF oxycodone 5 mg tablet 5 mg PO Q6H PRN (Reason: pain) 7 Days Qty: 14 0RF Continued acetaminophen 500 MG tablet 500 mg PO Q4H PRN PRN (Reason: Pain Or Fever) albuterol sulfate 1 INHALER inhaler 2 puff inhalation Q6H PRN PRN (Reason: Wheezing) levothyroxine 112 MCG tablet 112 mcg PO DAILY loratadine 10 MG capsule 10 mg PO DAILY PRN (Reason: allergy symptoms) oxycodone 10 mg tablet 10 mg PO Q8 atorvastatin 40 mg tablet 40 mg PO QHS calcium carbonate-vitamin D2 600 mg calcium- 200 unit tablet 1 tab PO DAILY polyethylene glycol 3350 [Miralax] 17 gram/dose powder 4 g PO DAILY carvedilol [Coreg] 6.25 mg tablet 3.125 mg PO BID Rx Instructions: must administer with a meal/food pantoprazole 40 mg tablet,delayed release (DR/EC) 40 mg PO .evening before dinne Referrals / Follow Up: Valdo Conti MD [Med Staff - Active Staff, Urology] Edy Patton DO [Primary Care Provider, Family Practice] Disposition Disposition (needs filled in before D/C Order can be placed): Home, Self Care
--- NOTE | 2025-01-27 09:41 | PCM.DC ---
Discharge Instructions DC O2, CPAP, BIPAP needs Home O2 Discharge instructions: No Dressing / Incision Discharge Activity: Return to Normal Activity and May Not Drive (while taking narcotic pain medications.) Dressing / Incision Call your doctor if your incision/area has: Continuous Slow Oozing and Sudden Increased Bleeding Call your doctor if you observe: Fever of 101 or Higher and Uncontrolled pain Suture Line Care: Avoid Pulling/Pushing and Avoid Pinching/Bending Follow Up Care Please Follow Up With: Valdo Conti MD When: Call [phone] for an appointment Test Results: Test results from this visit will be discussed in further detail at your follow-up appointment, if applicable. Discharge Plan Admission Admit Date/Time: 01/23/25 15:43 Primary Reason for Your Visit: left partial nephrectomy Attending Provider: Valdo Conti Primary Care Provider: Edy Patton Discharge Orders/Prescriptions Prescriptions: New docusate sodium [Colace] 100 mg capsule 100 mg PO BID Qty: 20 0RF oxycodone 5 mg tablet 5 mg PO Q6H PRN (Reason: pain) 7 Days Qty: 14 0RF Continued acetaminophen 500 MG tablet 500 mg PO Q4H PRN PRN (Reason: Pain Or Fever) albuterol sulfate 1 INHALER inhaler 2 puff inhalation Q6H PRN PRN (Reason: Wheezing) levothyroxine 112 MCG tablet 112 mcg PO DAILY loratadine 10 MG capsule 10 mg PO DAILY PRN (Reason: allergy symptoms) oxycodone 10 mg tablet 10 mg PO Q8 atorvastatin 40 mg tablet 40 mg PO QHS calcium carbonate-vitamin D2 600 mg calcium- 200 unit tablet 1 tab PO DAILY polyethylene glycol 3350 [Miralax] 17 gram/dose powder 4 g PO DAILY carvedilol [Coreg] 6.25 mg tablet 3.125 mg PO BID Rx Instructions: must administer with a meal/food pantoprazole 40 mg tablet,delayed release (DR/EC) 40 mg PO .evening before dinne Referrals / Follow Up: Valdo Conti MD [Med Staff - Active Staff, Urology] Edy Patton DO [Primary Care Provider, Family Practice] Disposition Disposition (needs filled in before D/C Order can be placed): Home, Self Care
--- NOTE | 2025-01-27 09:42 | PCM.DC.SUM ---
Providers Date of Admission: 01/23/25 Date of Discharge: 01/27/25 Primary Care Physician: Dr. Edy Patton DO Reason For Visit: LEFT RENAL MASS Medications at Discharge Home Medications acetaminophen 500 mg tablet 500 mg PO Q4H PRN PRN Pain Or Fever 02/19/19 albuterol sulfate 90 mcg/actuation aerosol inhaler 2 puff inhalation Q6H PRN PRN Wheezing 02/19/19 levothyroxine 112 mcg tablet 112 mcg PO DAILY 02/19/19 loratadine 10 mg capsule 10 mg PO DAILY PRN allergy symptoms 02/19/19 atorvastatin 40 mg tablet 40 mg PO QHS 10/29/24 calcium carb-ergocalciferol (vit D2) 600 mg calcium-200 unit tablet 1 tab PO DAILY 10/29/24 oxycodone 10 mg tablet 10 mg PO Q8 pain 10/29/24 polyethylene glycol 3350 17 gram/dose oral powder (Miralax) 4 g PO DAILY 10/29/24 carvedilol 6.25 mg tablet (Coreg) 3.125 mg PO BID 01/15/25 pantoprazole 40 mg tablet,delayed release 40 mg PO .evening before dinne 01/15/25 docusate sodium 100 mg capsule (Colace) 100 mg PO BID #20 caps 01/23/25 oxycodone 5 mg tablet 5 mg PO Q6H PRN pain 7 days #14 tabs 01/26/25 Hospital Course Summary of Care Provided Minutes Spent on Discharge: 15 Hospital Course: s/p open left partial nephrectomy recovered well, family wants to take pt. home home PT ordered\ JULIEN drain removed pt stable on discharge Physical Exam Const alert and oriented x3 General Appearance: cooperative HEENT normocephalic, head/scalp atraumatic, EAC's normal and TM's normal bilaterally Eyes PERRL and EOMs intact bilaterally Pupil: sluggish Neck no lymphadenopathy, supple and no JVD General: trachea midline Lymph Lymphatic: no lymphadenopathy noted, lymphedema and lymphadenopathy Resp normal respiratory effort, normal air movement and clear to auscultation bilaterally Cardio regular rate, regular rhythm and peripheral pulses 2+ throughout GI soft to palpation, non-tender and non-distended Extremity normal capillary refill and no clubbing, cyanosis or edema General Extremity: no tenderness to palpation of joints or extremities Skin no rashes or lesions noted General Skin Exam: turgor normal Lesions: no lesions Rashes: no rashes Neuro CN's II-XII intact bilaterally Speech: speech normal Motor Exam: strength 5/5 throughout; Negative for general weakness Psych thought process normal, cooperative and affect normal Appearance: appropriate Weight / BMI Weight Weight: 62.9 kg Body Mass Index (BMI) 23.8 ABG / Lab / Microbiology Data 01/26/25 05:03 01/26/25 05:03 D/C Instructions Call your doctor if your incision/area has: Continuous Slow Oozing and Sudden Increased Bleeding Call your doctor if you observe: Fever of 101 or Higher and Uncontrolled pain Suture Line Care: Avoid Pulling/Pushing and Avoid Pinching/Bending Additional Dressing/Incision Instructions: JULIEN drain to suction. DC O2, CPAP, BIPAP Needs Home O2 Discharge instructions: No Please Follow Up With: Valdo Conti MD When: Call [phone] for an appointment Meaningful Use Info Meaningful Use Meaningful Use Diagnoses (Choose all that apply): None applicable Discharge Plan Admission Admit Date/Time: 01/23/25 15:43 Primary Reason for Your Visit: left partial nephrectomy Attending Provider: Valdo Conti Primary Care Provider: Edy Patton Discharge Orders/Prescriptions Prescriptions: New docusate sodium [Colace] 100 mg capsule 100 mg PO BID Qty: 20 0RF oxycodone 5 mg tablet 5 mg PO Q6H PRN (Reason: pain) 7 Days Qty: 14 0RF Continued acetaminophen 500 MG tablet 500 mg PO Q4H PRN PRN (Reason: Pain Or Fever) albuterol sulfate 1 INHALER inhaler 2 puff inhalation Q6H PRN PRN (Reason: Wheezing) levothyroxine 112 MCG tablet 112 mcg PO DAILY loratadine 10 MG capsule 10 mg PO DAILY PRN (Reason: allergy symptoms) oxycodone 10 mg tablet 10 mg PO Q8 atorvastatin 40 mg tablet 40 mg PO QHS calcium carbonate-vitamin D2 600 mg calcium- 200 unit tablet 1 tab PO DAILY polyethylene glycol 3350 [Miralax] 17 gram/dose powder 4 g PO DAILY carvedilol [Coreg] 6.25 mg tablet 3.125 mg PO BID Rx Instructions: must administer with a meal/food pantoprazole 40 mg tablet,delayed release (DR/EC) 40 mg PO .evening before dinne Referrals / Follow Up: Valdo Conti MD [Med Staff - Active Staff, Urology] Edy Patton DO [Primary Care Provider, Family Practice] Disposition Disposition (needs filled in before D/C Order can be placed): Home, Self Care
[2025-01-27 10:05] VITALS: BP 126/61; PULSE 84; RESP 18; TEMP 36.1; O2SAT 92
--- NOTE | 2025-01-28 09:49 | CASEMGMT ---
Discharge Planning DC instructions and summary sent via [facility] to Bradford REYNAGA. Jocelyn Casiano, ANDREW Planning Asst.
== END 2025-01-27 12:59 | disposition home or self-care (01) | DRG 658 ==
LOC: SDC 16:45 → MS3 16:45
PROVIDERS: Admitting Provider Urology; PCP Student in an Organized Health Care Education/Training Program; Referring Provider Urology; Visit Provider Urology
PROC: 0TB10ZZ Excision of Left Kidney, Open Approach (ICD-10-PCS; CPT 50543; principal; 2025-01-23 11:25)
DX: D30.02 Benign neoplasm of left kidney (principal); E03.9 Hypothyroidism, unspecified; J44.9 Chronic obstructive pulmonary disease, unspecified; I10 Essential (primary) hypertension; I71.40 Abdominal aortic aneurysm, without rupture, unspecified; K21.9 Gastro-esophageal reflux disease without esophagitis; F17.290 Nicotine dependence, other tobacco product, uncomplicated; I25.10 Atherosclerotic heart disease of native coronary artery without angina pectoris; N28.89 Other specified disorders of kidney and ureter; N28.1 Cyst of kidney, acquired; Z86.73 Personal history of transient ischemic attack (TIA), and cerebral infarction without residual deficits; Z79.899 Other long term (current) drug therapy; Z79.890 Hormone replacement therapy; Z98.890 Other specified postprocedural states; Z23 Encounter for immunization
CPT/HCPCS: 36415; 80048; 85025; 86850; 86900; 86901; 88304; 88307; 88311; 88341; 88342; 94762; 97116; 97162; 97166; 97530; 97535; 99406; A4216; J2405